=== PATIENT | female | born 1955 | race Caucasian/White ===

== ENCOUNTER 2017-09-01 14:05 | Emergency (ER) | payer BC, SELFPAY ==
[2017-09-01 14:43] VITALS: BP 138/81; PULSE 90; RESP 16; TEMP 36.8; O2SAT 98; BMI 19.1
--- NOTE | 2017-09-01 15:01 | HMH.EDUTC ---
[facility] [place] Disposition Clinical Impression: Skin problem Disposition: Home, Self-Care Condition on Discharge: Good Instructions: DI for Itching Additional Instructions: Take medication as prescribed and follow up with family doctor Return if needed Use skin Moisturizer that does not contain perfume such as Eucerin, Aquafor etc Return if needed Prescriptions: hydrOXYzine pamoate [Vistaril] 12.5 mg PO Q6H PRN #20 cap PRN Reason: Itching Referrals: Vince Harris MD [Primary Care Provider] - Time of Disposition: 15:37 Medical Decision Making - Medical Records Medical records reviewed: Yes: I reviewed the patient's medical records. Vital Signs: 09/01/17 14:43 Temperature 98.2 F Temperature Source Temporal Artery Scan Pulse Rate [Left Brachial] 90 Respiratory Rate 16 Blood Pressure [Left Arm] 138/81 Blood Pressure Mean [Left Arm] 100 Blood Pressure Source [Left Arm] Automatic Cuff Blood Pressure Position [Left Arm] Sitting 02 Sat by Pulse Oximetry 98 Oxygen Delivery Method Room Air - Bairon Inquiry Pt receiving controlled substance: No Bairon was queried for this patient: No - Reevaluation(s) Reevaluation #1: Consulted ER physician Dr Aggarwal for evaluation, he evaluated patient and recommended prescribe Visteril 12.5 and have patient use Moistuizer and follow up with family doctor [facility] [place] HPI - General Stated complaint: itchy rash over body Mode of Arrival: Ambulatory Source of Information: Patient Limitations: No Limitations Description of Symptoms (Recalled from Triage Doc. by RN): c/o itching d/t a rash x2 days HEENT Symptoms (Recalled from RN notes): No Resp Symptoms (Recalled from RN notes): No Skin Symptoms (Recalled from RN notes): Yes (itchy rash) MS Symptoms (Recalled from RN notes): No Functional Status (Recalled from RN notes): n/a - History of Present Illness Provider Complaint: Patient state that she has been having itching all over your body, State that she was recently started on Amoxicillin, Prometh/dm and prednisone States that she went to her family doctor when it started and told them what was going on, and they stopped her Amoxicillin and she has continued to have itching - Related Data Previous Rx's Medication Instructions Recorded hydrOXYzine pamoate [Vistaril] 12.5 mg PO Q6H PRN #20 cap 09/01/17 Allergies Allergy/AdvReac Type Severity Reaction Status Date / Time From ROBAXIN Allergy Unknown Uncoded 07/09/17 14:49 CODEINE AdvReac Unknown NA-NAUSEA Uncoded 07/09/17 14:49 - Worker's Comp Is this a Worker's Comp case?: No [facility] History I have reviewed the patient's past medical history: Yes 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: Denies:: Diabetes Mellitus Type 1, Diabetes Mellitus Type 2 Amputation: No Fractures: No - *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 Smoking Status: Current every day smoker Tobacco Type: cigarettes Alcohol Intake: never - Psychiatric History Expresses thoughts of harming self/others: None Suicide Plan Description: No Plan ROS Obtained: Yes All systems reviewed & no additional complaints Physical Exam - General General appearance: alert, in no apparent distress - ENT ENT exam: Present: normal exam, normal oropharynx, mucous membranes moist, TM's normal bilaterally, normal external ear exam - Respiratory Respiratory exam: Present: normal lung sounds bilaterally. Absent: respiratory distress - Cardiovascular Cardiovascular exam: Present: regular rate, normal rhythm. Absent: JVD - Neurological Exam Neurological exam: Present: alert, oriented X3 - Skin Skin exam: Present: other (Itching all over her body, no rash observed, patient scratching and digging at skin, skin dry )
--- NOTE | 2017-09-01 15:05 | ED_ITS ---
[facility] [place] Clinical Impression: Skin problem Disposition: Home, Self-Care Condition on Discharge: Good Instructions: DI for Itching Additional Instructions: Take medication as prescribed and follow up with family doctor Return if needed Use skin Moisturizer that does not contain perfume such as Eucerin, Aquafor etc Return if needed Prescriptions: hydrOXYzine pamoate [Vistaril] 12.5 mg PO Q6H PRN #20 cap PRN Reason: Itching Referrals: Vince Harris MD [Primary Care Provider] - Time of Disposition: 15:37 Medical Decision Making - Medical Records Medical records reviewed: Yes: I reviewed the patient's medical records. Vital Signs: 09/01/17 14:43 Temperature 98.2 F Temperature Source Temporal Artery Scan Pulse Rate [Left Brachial] 90 Respiratory Rate 16 Blood Pressure [Left Arm] 138/81 Blood Pressure Mean [Left Arm] 100 Blood Pressure Source [Left Arm] Automatic Cuff Blood Pressure Position [Left Arm] Sitting 02 Sat by Pulse Oximetry 98 Oxygen Delivery Method Room Air - Bairon Inquiry Pt receiving controlled substance: No Bairon was queried for this patient: No - Reevaluation(s) Reevaluation #1: Consulted ER physician Dr Aggarwal for evaluation, he evaluated patient and recommended prescribe Visteril 12.5 and have patient use Moistuizer and follow up with family doctor [facility] [place] - General Stated complaint: itchy rash over body Mode of Arrival: Ambulatory Source of Information: Patient Limitations: No Limitations Description of Symptoms (Recalled from Triage Doc. by RN): c/o itching d/t a rash x2 days HEENT Symptoms (Recalled from RN notes): No Resp Symptoms (Recalled from RN notes): No Skin Symptoms (Recalled from RN notes): Yes (itchy rash) MS Symptoms (Recalled from RN notes): No Functional Status (Recalled from RN notes): n/a - History of Present Illness Provider Complaint: Patient state that she has been having itching all over your body, State that she was recently started on Amoxicillin, Prometh/dm and prednisone States that she went to her family doctor when it started and told them what was going on, and they stopped her Amoxicillin and she has continued to have itching - Related Data Previous Rx's Medication Instructions Recorded hydrOXYzine pamoate [Vistaril] 12.5 mg PO Q6H PRN #20 cap 09/01/17 Allergies Allergy/AdvReac Type Severity Reaction Status Date / Time From ROBAXIN Allergy Unknown Uncoded 07/09/17 14:49 CODEINE AdvReac Unknown NA-NAUSEA Uncoded 07/09/17 14:49 - Worker's Comp Is this a Worker's Comp case?: No [facility] History I have reviewed the patient's past medical history: Yes 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: Denies:: Diabetes Mellitus Type 1, Diabetes Mellitus Type 2 Amputation: No Fractures: No - *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 Smoking Status: Current every day smoker Tobacco Type: cigarettes Alcohol Intake: never - Psychiatric History Expresses thoughts of harming self/others: None Suicide Plan Description: No Plan ROS Obtained: Yes All systems reviewed & no additional complaints Physical Exam - General General appearance: alert, in no apparent distress - ENT ENT exam: Present: normal exam, normal oropharynx, mucous membranes moist, TM's normal bilaterally, normal external ear exam - Respiratory Respiratory exam: Present: normal lung sounds bilat
[2017-09-01 15:46] VITALS: BP 138/81; PULSE 90; RESP 16; TEMP 36.8; O2SAT 98
== END 2017-09-01 15:51 | disposition home or self-care (01) ==
PROVIDERS: Emergency Provider Nurse Practitioner; Family Provider Family Medicine; PCP Family Medicine
DX: L98.9 Disorder of the skin and subcutaneous tissue, unspecified (principal); F17.210 Nicotine dependence, cigarettes, uncomplicated
CPT/HCPCS: 99202

== ENCOUNTER → 2018-06-19 08:44 | Outpatient (CLI) | payer BC, SELFPAY ==
--- NOTE | 2018-06-19 08:54 | US_ITS ---
US gallbladder HISTORY: ITS.REASON: RUQ PAIN ORDERING PHYSICIAN: Zeb Miguel MD PATIENT AGE: 62 years Comparison: None FINDINGS: PANCREAS: Unremarkable. No obvious mass or abnormal fluid collection. No ductal dilatation LIVER: No focal liver lesions demonstrated. Homogeneous echogenicity. No intrahepatic biliary ductal dilatation evident RIGHT KIDNEY: Unremarkable. Normal size and echogenicity. No hydronephrosis GALLBLADDER: No gallstones, gallbladder wall thickening, pericholecystic fluid, or biliary dilatation. There is a small amount of plaque present within the abdominal aorta without obvious aneurysm. IMPRESSION: Negative gallbladder/right upper quadrant ultrasound
== END ==
PROVIDERS: PCP Family Medicine; Visit Provider Family Medicine
DX: R10.11 Right upper quadrant pain (principal)
CPT/HCPCS: 76705

== ENCOUNTER 2018-12-08 01:18 | Observation (INO) | payer BC, SELFPAY ==
[2018-12-08] VITALS (8 sets, daily range): BP systolic 83–150; BP diastolic 47–86; PULSE 68–102; RESP 17–22; TEMP 36.8–37.6; O2SAT 94–100; BMI 19.1; BMI 19.2
--- NOTE | 2018-12-08 01:21 | XR_ITS ---
XR chest 2V HISTORY: ITS.REASON: chest pain, smoker ORDERING PHYSICIAN: Mark Guzman MD PATIENT AGE: 62 years COMPARISON: 11/15/2015 FINDINGS: The cardiomediastinal silhouette and pulmonary vascularity are within normal limits. There is evidence of old granulomatous disease. COPD. No lobar consolidation or collapse. IMPRESSION: COPD, no change with no acute finding
[2018-12-08 01:36] LABS: Basophils % 0.2 % (0.1-2.0); Eosinophils # 0.3 K/mm3 (0.0-0.4); Eosinophils % 1.8 % (0.1-12.0); Hematocrit 39.9 % (37.0-47.0); Lymphocytes # 2.5 K/mm3 (0.7-4.5); Lymphocytes % 15.8 % (10-50); Mean Corpuscular HGB Conc 32.5 g/dL (31.8-35.4); Mean Corpuscular Hemoglobin 29.3 pg (27.0-31.2); Mean Corpuscular Volume 90.2 fl (81-99); Mean Platelet Volume 7.2 fl (7.4-10.4); Monocytes # 1.4 K/mm3 (0.1-1.0); Monocytes % 8.5 % (1.7-9.3); Neutrophils # 11.8 K/mm3 (1.8-7.8); Neutrophils % 73.7 % (37.0-80.0); Platelet Count 275 K/mm3 (142-424); Red Blood Count 4.43 M/mm3 (4.20-5.40); Red Cell Distribution Width 13.6 % (11.5-17.5)
[2018-12-08 01:38] LABS: MANUAL DIFFERENTIAL MANUAL DIFFERENTIAL (MANUAL DIFF)
[2018-12-08 01:51] LABS: Alanine Aminotransferase 27 U/L (12-78); Albumin/Globulin Ratio 0.8 (1.1-1.8); Alkaline Phosphatase 68 U/L (46-116); Anion Gap 14.3 mEq/L (5-15); Aspartate Amino Transferase 14 U/L (15-37); Bilirubin,Total 0.5 mg/dL (0.2-1.0); Blood Urea Nitrogen 13 mg/dL (7-18); Calcium 8.4 mg/dL (8.5-10.1); Carbon Dioxide 24 mmol/L (21.0-32.0); Chloride 101 mmol/L (98-107); Creatinine Clearance Estimated 38 mL/min (50-200); Creatinine,Serum 1.08 mg/dL (0.55-1.02); Estimated Glomerular Filt Rate 52 ml/min (>60); GFR (African American) 62 ML/MIN (>60); Globulin 3.9 gm/dl (1.3-3.2); Glucose 159 mg/dL (74-106); Potassium 3.3 mmoL/L (3.5-5.1); Sodium 136 mmol/L (136-145); Total Protein,Serum 6.9 gm/dL (6.4-8.2); Troponin I < 0.02 ng/ml (0.00-0.06)
[2018-12-08 01:52] LABS: Lymphocytes % 11 % (10-50); Monocytes % 4 % (2-9); Neutrophils % 76 % (42-76); Platelet Estimate Normal; RBC Morphology Normal; Total Cells Counted 100
--- NOTE | 2018-12-08 01:52 | HMH.EDCP ---
ED Disposition Clinical Impression: Low body mass index (BMI), Tobacco use Chest pain Qualifiers: Chest pain type: precordial pain Qualified Code(s): R07.2 - Precordial pain COPD (chronic obstructive pulmonary disease) Qualifiers: COPD type: unspecified COPD Qualified Code(s): J44.9 - Chronic obstructive pulmonary disease, unspecified Disposition: Admitted as Observation Condition on Discharge: Good Referrals: Zeb Miguel MD [Primary Care Provider] - - Critical Care Critical Care Time: No Attestation: On 12/08/18, the high probability of a clinically significant, sudden or life threatening deterioration of the following system(s) required my full and direct attention, intervention and personal management. The time I documented below is in addition to time spent performing reported procedures but includes the following listed in this critical care notation. Medical Decision Making - Medical Records Medical records reviewed: Yes: I reviewed the patient's medical records. - Bairon Inquiry Pt receiving controlled substance: No Vital Signs: 12/08/18 01:25 Temperature 99.6 F Temperature Source Oral Pulse Rate [Right] 102 H Respiratory Rate 22 Blood Pressure [Right Arm] 150/86 H Blood Pressure Mean [Right Arm] 107 Blood Pressure Source [Right Arm] Automatic Cuff Blood Pressure Position [Right Arm] Supine 02 Sat by Pulse Oximetry 98 Oxygen Delivery Method Room Air - Lab Data Lab results reviewed: Yes: I reviewed the patient's lab results. Lab Results 12/08/18 01:25: WBC 16.0 H, RBC 4.43, Hgb 13.0, Hct 39.9, MCV 90.2, MCH 29.3, MCHC 32.5, RDW 13.6, Plt Count 275, MPV 7.2 L, Neut % (Auto) 73.7, Lymph % (Auto) 15.8, [place] % (Auto) 8.5, Eos % (Auto) 1.8, Baso % (Auto) 0.2, Neut # (Auto) 11.8 H, Lymph # (Auto) 2.5, [place] # (Auto) 1.4 H, Eos # (Auto) 0.3, Baso # (Auto) 0.0, Total Counted 100, Neutrophils % (Manual) 76, Band Neutrophils % 9.0 H, Lymphocytes % (Manual) 11, Monocytes % (Manual) 4, Platelet Estimate Normal, RBC Morphology Normal 12/08/18 01:25: Sodium 136, Potassium 3.3 L, Chloride 101, Carbon Dioxide 24, Anion Gap 14.3, BUN 13, Creatinine 1.08 H, Estimated Creat Clear 38, Estimated GFR 52 L, Est GFR ( Amer) 62, Glucose 159 H, Calcium 8.4 L, Total Bilirubin 0.5, AST 14 L, ALT 27, Alkaline Phosphatase 68, Troponin I < 0.02, Total Protein 6.9, Albumin 3.0 L, Globulin 3.9 H, Albumin/Globulin Ratio 0.8 L 12/08/18 01:25: Lactate 2.0 Result diagrams: 12/08/18 01:25 12/08/18 01:25 Orders (Tests/Meds): ED MEDICATIONS Generic Name Dose Route Start Last Admin Trade Name Freq PRN Reason Stop Dose Admin Sodium Chloride 1,000 mls @ 999 mls/hr 12/08/18 01:30 12/08/18 01:48 Sod Chlor 0.9% 1000ml Bag IV 12/08/18 02:30 999 mls/hr .Q1H1M MILLA Administration Discontinued Medications Generic Name Dose Route Start Last Admin Trade Name Freq PRN Reason Stop Dose Admin Aspirin 324 mg 12/08/18 01:22 12/08/18 01:47 Aspirin 81mg Chewable Tablet PO 12/08/18 01:23 324 mg ONCE ONE Administration Ketorolac Tromethamine 30 mg 12/08/18 01:22 12/08/18 01:47 Toradol 30mg/Ml Vial IV 12/08/18 01:23 30 mg ONCE ONE Administration Methylprednisolone Sodium Succinate 125 mg 12/08/18 01:23 12/08/18 01:47 Solu-Medrol 125mg/2ml Vial IV 12/08/18 01:24 125 mg ONCE ONE Administration Nitroglycerin 0.4 mg 12/08/18 01:22 12/08/18 01:47 Nitrostat 0.4mg Sl Tablet SL 12/08/18 01:23 0.4 mg ONCE ONE Administration Nitroglycerin 1 gm 12/08/18 01:48 12/08/18 01:49 Nitroglycerin 1 Inch Oint Udp TD 12/08/18 01:49 1 gm ONCE ONE Administration Ondansetron HCl 4 mg 12/08/18 01:22 12/08/18 01:48 Zofran 4mg/2ml Vial IV 12/08/18 01:23 4 mg ONCE ONE Administration ORDERS Category Date Time Status XR chest 2V Stat Exams 12/08/18 01:21 Taken Blood Culture Stat Micro 12/08/18 01:25 Received - Radiology Data #1 Image(s): Chest I
--- NOTE | 2018-12-08 02:35 | PC.NURSE ---
Dr Guzman on phone with Dr Lovell for admission
--- NOTE | 2018-12-08 02:56 | PC.NURSE ---
Pt Hypotensive reported to Dr Guzman no new orders, Dr Guzman wants the Nitro Paste to remain on pt
--- NOTE | 2018-12-08 03:42 | PC.NURSE ---
PT ARRIVED TO FLOOR VIA @ 9100
--- NOTE | 2018-12-08 04:28 | PC.NURSE ---
Pt A&O x3. Resting in bed. Pt denies any chest pain at this time. Lungs are diminished t/o. VSS. Pt is currently NPO at this time for cardiac consult. Call light within reach. No concerns at this time. Will continue to monitor.
[2018-12-08 06:07] LABS: Basophils % 0.1 % (0.1-2.0); Eosinophils # 0.1 K/mm3 (0.0-0.4); Eosinophils % 0.4 % (0.1-12.0); Hematocrit 37.8 % (37.0-47.0); Hemoglobin 12.6 g/dL (12.2-16.2); Lymphocytes # 0.7 K/mm3 (0.7-4.5); Lymphocytes % 4.2 % (10-50); Mean Corpuscular HGB Conc 33.3 g/dL (31.8-35.4); Mean Corpuscular Hemoglobin 29.9 pg (27.0-31.2); Mean Platelet Volume 7.3 fl (7.4-10.4); Monocytes # 0.3 K/mm3 (0.1-1.0); Monocytes % 2.1 % (1.7-9.3); Neutrophils # 14.7 K/mm3 (1.8-7.8); Neutrophils % 93.2 % (37.0-80.0); Platelet Count 260 K/mm3 (142-424); Red Cell Distribution Width 13.5 % (11.5-17.5); White Blood Count 15.8 K/mm3 (4.8-10.8)
[2018-12-08 06:26] LABS: Anion Gap 14.7 mEq/L (5-15); Blood Urea Nitrogen 11 mg/dL (7-18); Calcium 8.1 mg/dL (8.5-10.1); Carbon Dioxide 22 mmol/L (21.0-32.0); Chloride 104 mmol/L (98-107); Chol/HDL Ratio 3.3 (1-3.5); Cholesterol 170 mg/dL (140-200); Creatinine Clearance Estimated 42 mL/min (50-200); Creatinine,Serum 0.88 mg/dL (0.55-1.02); Estimated Glomerular Filt Rate 65 ml/min (>60); GFR (African American) 79 ML/MIN (>60); Glucose 136 mg/dL (74-106); HDL Cholesterol 52 mg/dL (29-89); LDL Cholesterol 105 mg/dL (0-130); Magnesium 2.2 mg/dL (1.4-2.2); Potassium 3.7 mmoL/L (3.5-5.1); Sodium 137 mmol/L (136-145); Triglycerides 67 mg/dL (30-200); Troponin I < 0.02 ng/ml (0.00-0.06); VLDL Cholesterol 13 mg/dL (0-40)
--- NOTE | 2018-12-08 07:15 | HMH.PHAVTE ---
[facility] Pharmacy VTE Monitoring - Patient Demographics Admission date: 12/08/18 Report Date: 12/08/18 Time: 07:15 Allergies/Adverse Reactions: Patient Allergies methocarbamol [From Robaxin] Allergy (Verified 12/08/18 01:43) Penicillins Allergy (Verified 12/08/18 01:43) Height: 1.52 m Weight: 44.594 kg Patient Problems: Current Active Problems (Updated 12/08/18 @ 02:39 by Mark Guzman MD) Chest pain (Acute) COPD (chronic obstructive pulmonary disease) (Acute) Low body mass index (BMI) (Acute) Tobacco use (Acute) - VTE Risk Labs: VTE Related Lab Results Hgb 12.6 g/dL (12.2-16.2) 12/08/18 05:43 Hct 37.8 % (37.0-47.0) 12/08/18 05:43 Plt Count 260 K/mm3 (142-424) 12/08/18 05:43 BUN 11 mg/dL (7-18) 12/08/18 05:43 Creatinine 0.88 mg/dL (0.55-1.02) 12/08/18 05:43 Estimated Creat Clear 42 mL/min (50-200) 12/08/18 05:43 VTE Score: 4 VTE Risk Level: Low Risk - Prophylaxis VTE Prophylaxis Ordered?: Yes Types of VTE Prophylaxis: TEDS Knee High Location of Applied Device: Bilateral Lower Extremeties - VTE Diagnosis Confirmed Treatment or plan recommended: Continue Current Treatment
--- NOTE | 2018-12-08 07:15 | HMH.PHAINT ---
MEDICATION RECONCILIATION COMPLETED ON PATIENT USING EXTERNAL FILL HISTORY FROM PHARMACY. -GRACIELA MCCORMICK, SUDHAD
--- NOTE | 2018-12-08 08:00 | CA_ITS ---
PROCEDURE: 2-D M-mode and color Doppler study INDICATIONS FOR THE TEST: Chest pain+ COPD+ Heart Murmur Tobacco Smoking+ Palpitations Fatigue Syncope Edema Hypertension Diabetes Mellitus Rheumatic Fever SOB HARRIS Obesity Hyperlipidemia Family History HD Additional History PATIENT INFORMATION HEIGHT: 60 WEIGHT:98 GENDER: Female B/P:150/86 2-D/M-MODE INTERPRETATION: 2-D MEASUREMENTS OBSERVED VALUES IN CMS Right Ventricular Dimension (RVDd) 1.9 Interventricular Septum (Thickness)(IVsd) 1.1 Left Ventricular Internal Dimensions(LVIDd) 3.1 Left Ventricular Posterior Wall (Thickness)(LVPWd) 0.6 Aortic Root 3.0 Aortic Cusp Separation 1.8 Left Atrial Dimensions (LAD) 2.7 2D 1. Left atrium is normal size, left ventricle is normal size, there is mild concentric left ventricular hypertrophy, visually estimated ejection fraction 55% with no regional wall motion abnormality. 2. The right atrium and right ventricle are normal size and contractility. 3. The aortic valve is minimally thickened and fibrosed. 4. The mitral and tricuspid valvular grossly normal. 5. The pulmonic valve is poorly visualized. 6. Significant pericardial effusion noted. DOPPLER INTERROGATION: Doppler interrogation of the aortic, mitral and tricuspid valvular presence of mild mitral and tricuspid regurgitation, tricuspid regurgitation jet velocity is inadequate for calculation of the right ventricular systolic pressure, Doppler evidence of impaired relaxation seen. CONCLUSION: 1. Normal left ventricular size, mild concentric left ventricular hypertrophy, visually estimated ejection fraction 55% with no regional wall motion abnormality, diastolic parameters consistent with impaired LV relaxation. 2. Mild mitral and tricuspid regurgitation 3. Thickened pericardial effusion noted.
--- NOTE | 2018-12-08 08:13 | PC.NURSE ---
RN aware of low BP.
[2018-12-08 09:10] LABS: Troponin I < 0.02 ng/ml (0.00-0.06)
--- NOTE | 2018-12-08 09:15 | HMH.CNCARD ---
History of Present Illness Consult date: 12/08/18 Requesting physician: Zeb Miguel Consult reason: chest pain Chief complaint: chest pain Additional 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:: 1. Tobacco use, continued 2. FH of CAD in sister 3. History of C-spine surgery with resultant difficulty swallowing since then History of present illness: 62-year-old white female tobacco user presented to the emergency department for substernal chest pressure type pain with associated significant shortness of breath. Symptoms started at rest after a hard day of working around the house cleaning windows and other chores. She denies any chest pain or SOA with those activities. The chest pain was worse with deep breathing and she felt as if it was related to overworking and possibly pulling a muscle. She did take some ibuprofen prior to calling EMS for transport. In ER she was given toradol and steroids with some improvement in symptoms. She was later given NTG tab without significant improvement but symptoms seem to resolve after being started on the NTG paste. Initial BP elevated in ER but low since admission. EKG is sinus without acute changes. Troponins normal. Preliminary echo shows preserved LVEF without effusion. Pt relates low grade fever of 100.5 degrees on Saturday night without etiology (no cough, cold symptoms). WBC noted to be elevated last night but improving this AM. Pt is adament about going home today and having any further workup as an outpatient. She does smoke but denies any history of HTN or Hyperlipidemia. [facility] History 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: Denies:: Diabetes Mellitus Type 1, Diabetes Mellitus Type 2 *Have you ever received a pneumonia vaccine?: Yes *Have you received a flu vaccine this season?: Yes Other Surgeries: Yes: Tubal Ligation Amputation: No Fractures: No - *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 Educational Level: Attended College Smoking Status: Current every day smoker Tobacco Type: cigarettes # Packs/Day (cigarettes): 1 Alcohol Intake: never *Occupational Status:: employed *Travel in the last 8 weeks: None - Psychiatric History Expresses thoughts of harming self/others: None Suicide Plan Description: No Plan Family Hx:: Cancer, Heart Attack Meds Home Medications Medication Instructions Recorded Confirmed Type Budesonide [Budesonide ER] 9 mg PO DAILY 12/08/18 12/08/18 History Cyclobenzaprine HCl [Flexeril 10mg 10 mg PO HS 12/08/18 12/08/18 History tablet] Allergies Allergy/AdvReac Type Severity Reaction Status Date / Time methocarbamol [From Robaxin] Allergy Verified 12/08/18 01:43 Penicillins Allergy Verified 12/08/18 01:43 Review of Systems - *Cardiovascular Reports chest pain, Reports shortness of breath - *Respiratory Reports shortness of breath, Denies chest congestion, Denies cough - *Gastrointestinal Denies abdominal pain, Denies nausea, Denies vomiting - *Genitourinary Denies blood in urine, Denies urinary incontinence - *Musculoskeletal Denies joint pain, Denies back pain - *Neurologic Denies abnormal speech, Denies seizure-like activity Exam Vital signs and Labs for Last 24 Hours: Temp Pulse Resp BP Pulse Ox 98.6 F 89 18 83/47 L 94 L 12/08/18 08:00 12/08/18 08:00 12/08/18 08:00 12/08/18 08:00 12/08/18 08:00 Laboratory Results - last 24 hr 12/08/18 01:25: WBC 16.0 H, RBC 4.43, Hgb 13.0, Hct 39.9, MCV 90.2, MCH 29.3, MCHC 32.5, RDW 13.6, Plt Count 275, MPV 7.2 L, Neut % (Auto) 73.7, Lymph % (Auto) 15.8, [place] % (Auto) 8.5, Eos % (Auto) 1.8, Baso % (Auto) 0.2, Neut # (Auto) 11.8 H, Lymph # (Auto) 2.5, [place] # (Auto) 1.4 H, Eos # (Auto) 0.3, Baso # (Auto) 0.0, Total Counted 100, Neutrophils % (Manual) 76, Band Neutrophils % 9.0 H, Lymphocytes % (Manual) 11, Monocytes % (Manual) 4, Platelet Estimate Normal, RBC Morphology Normal 12/08/18 01:25: Sodium 136, Potassium 3.3 L, Chloride 101, Carbon Dioxide 24, Anion Gap 14.3, BUN 13, Creatinine 1.08 H, Estimated Creat Clear
--- NOTE | 2018-12-08 09:23 | P.CONS_ITS ---
History of Present Illness Consult date: 12/08/18 Requesting physician: Zeb Miguel Consult reason: chest pain Chief complaint: chest pain Additional 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:: 1. Tobacco use, continued 2. FH of CAD in sister 3. History of C-spine surgery with resultant difficulty swallowing since then History of present illness: 62-year-old white female tobacco user presented to the emergency department for substernal chest pressure type pain with associated significant shortness of breath. Symptoms started at rest after a hard day of working around the house cleaning windows and other chores. She denies any chest pain or SOA with those activities. The chest pain was worse with deep breathing and she felt as if it was related to overworking and possibly pulling a muscle. She did take some ibuprofen prior to calling EMS for transport. In ER she was given toradol and steroids with some improvement in symptoms. She was later given NTG tab without significant improvement but symptoms seem to resolve after being started on the NTG paste. Initial BP elevated in ER but low since admission. EKG is sinus without acute changes. Troponins normal. Preliminary echo shows preserved LVEF without effusion. Pt relates low grade fever of 100.5 degrees on Saturday night without etiology (no cough, cold symptoms). WBC noted to be elevated last night but improving this AM. Pt is adament about going home today and having any further workup as an outpatient. She does smoke but denies any history of HTN or Hyperlipidemia. [facility] History 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: Denies:: Diabetes Mellitus Type 1, Diabetes Mellitus Type 2 *Have you ever received a pneumonia vaccine?: Yes *Have you received a flu vaccine this season?: Yes Other Surgeries: Yes: Tubal Ligation Amputation: No Fractures: No - *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 Educational Level: Attended College Smoking Status: Current every day smoker Tobacco Type: cigarettes # Packs/Day (cigarettes): 1 Alcohol Intake: never *Occupational Status:: employed *Travel in the last 8 weeks: None - Psychiatric History Expresses thoughts of harming self/others: None Suicide Plan Description: No Plan Family Hx:: Cancer, Heart Attack Meds Home Medications Medication Instructions Recorded Confirmed Type Budesonide [Budesonide ER] 9 mg PO DAILY 12/08/18 12/08/18 History Cyclobenzaprine HCl [Flexeril 10mg 10 mg PO HS 12/08/18 12/08/18 History tablet] Allergies Allergy/AdvReac Type Severity Reaction Status Date / Time methocarbamol [From Robaxin] Allergy Verified 12/08/18 01:43 Penicillins Allergy Verified 12/08/18 01:43 Review of Systems - *Cardiovascular Reports chest pain, Reports shortness of breath - *Respiratory Reports shortness of breath, Denies chest congestion, Denies cough - *Gastrointestinal Denies abdominal pain, Denies nausea, Denies vomiting - *Genitourinary Denies blood in urine, Denies urinary incontinence - *Musculoskeletal Denies joint pain, Denies back pain - *Neurologic Denies abnormal speech, Denies seizure-like activity Exam Vital signs and Labs for Last 24 Hours: Temp Pulse Resp BP Pulse Ox 98.6 F 89 18 83/47 L 94 L 12/08/18 08:00 12/08/18 08:00 12/08/18 08:00 12/08/18 08:00 12/08/18 08:00 Laboratory Results - last 24
--- NOTE | 2018-12-08 09:53 | HMH.HPDC ---
<Kasia Matson - Last Filed: 12/08/18 13:27> General - General Admission date:: 12/08/18 Discharge date: 12/08/18 *Admission Date: 12/08/18 *History of present illness: Ms Mclean is a 62-year-old white female with a history tobacco use, migraine headaches, cervical spine stenosis, and irritable bowel syndrome who presented to the emergency department for substernal chest pressure type pain associated with significant shortness of breath. Symptoms started at rest after a hard day of working around the house, cleaning windows and other chores. She denies any chest pain or SOA with those activities. The chest pain was worse with deep breathing and she felt as if it was related to overworking and possibly pulling a muscle. She did take some ibuprofen prior to calling EMS for transport. She denies palpitations, nausea or vomiting. In ER she was given toradol and steroids with some improvement in symptoms. She was later given NTG tab without significant improvement but symptoms seem to resolve after being started on the NTG paste. Initial BP was elevated in ER but became low since admission. Patient has been seen by cardiology who noted EKG with sinus rhythm without acute changes, normal troponins and preliminary echo showing preserved left ventricular ejection fraction without effusion. Pt related a low grade fever of 100.5 degrees on Saturday night without etiology (no cough or cold symptoms). WBC was also noted to be elevated last night but improved this AM. To note also patient was on steroids last week due to a rash which has resolved. This a.m. patient denies chest pain and shortness of breath. She agreed to the cardiology consult. She then wants to go home. To note also patient does smoke and has a history of hypertension and hyperlipidemia [facility] History 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: Reports:: Chronic Obstructive Pulmonary Disease (COPD), Hypertension Denies:: Diabetes Mellitus Type 1, Diabetes Mellitus Type 2 *Have you ever received a pneumonia vaccine?: Yes *Have you received a flu vaccine this season?: Yes Comment:: Cervical spinal stenosis, migraine headaches, irritable bowel syndrome, osteopenia. Other Surgeries: Yes: Tubal Ligation Amputation: No Fractures: No Comment: Disectomy June 2014 - *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 Educational Level: Attended College Smoking Status: Current every day smoker Tobacco Type: cigarettes # Packs/Day (cigarettes): 1 Alcohol Intake: never *Occupational Status:: employed *Travel in the last 8 weeks: None - Psychiatric History Expresses thoughts of harming self/others: None Suicide Plan Description: No Plan Family Hx:: Cancer, Heart Attack Review of Systems - Constitutional Reports fever(s), Reports headache(s) - Eyes Denies change in vision - ENT Denies ear pain, Denies sore throat - *Cardiovascular Reports chest pain, Reports shortness of breath - *Respiratory Reports shortness of breath, Denies chest congestion, Denies cough - *Gastrointestinal Denies abdominal pain, Denies constipation, Denies heartburn, Denies nausea, Denies vomiting - *Genitourinary Denies difficulty urinating - *Musculoskeletal Denies abnormal walking - *Neurologic Reports headache(s), Denies abnormal speech, Denies confusion, Denies seizure-like activity Exam Vital signs and Labs for Last 24 Hours: Temp Pulse Resp BP Pulse Ox 98.6 F 89 18 83/47 L 94 L 12/08/18 08:00 12/08/18 08:00 12/08/18 08:00 12/08/18 08:00 12/08/18 08:00 Laboratory Results - last 24 hr 12/08/18 01:25: WBC 16.0 H, RBC 4.43, Hgb 13.0, Hct 39.9, MCV 90.2, MCH 29.3, MCHC 32.5, RDW 13.6, Plt Count 275, MPV 7.2 L, Neut % (Auto) 73.7, Lymph % (Auto) 15.8, [place] % (Auto) 8.5, Eos % (Auto) 1.8, Baso % (Auto) 0.2, Neut # (Auto) 11.8 H, Lymph # (Auto) 2.5, [place] # (Auto) 1.4 H, Eos # (Auto) 0.3, Baso # (Auto) 0.0, Total Counted 100, Neutrophils % (Manual) 76, Band Neutrophils % 9.0 H, Lymphocytes % (Manual) 11, Monocyte
--- NOTE | 2018-12-08 10:49 | HMH.PHAINT ---
DISCHARGE COUNSELING PROVIDED TO PATIENT FOR ALL MEDICATIONS. DISCUSSED CONTINUING BUDESONIDE AND FLEXERIL. PATIENT DID NOT HAVE ANY QUESTIONS ABOUT THOSE. ALSO DISCUSSED STARTING AN ASPIRIN 81 MG DAILY. PATIENT SAID SHE WOULD TAKE ASPIRIN 325 MG OR 81 MG X 3 IF SHE HAD A HEADACHE. COUNSELED PATIENT THAT SHE SHOULD ONLY BE TAKING 81 MG DAILY AND SHOULD TAKE TYLENOL IF NEEDED FOR THE HEADACHE.
== END 2018-12-08 11:23 | disposition home or self-care (01) ==
LOC: ER 02:11 → 2ND 02:39
PROVIDERS: Admitting Provider Emergency Medicine; Emergency Provider Emergency Medicine; PCP Family Medicine; Visit Provider Family Medicine
DX: R07.2 Precordial pain (principal); R06.02 Shortness of breath; J44.9 Chronic obstructive pulmonary disease, unspecified; I10 Essential (primary) hypertension; F17.210 Nicotine dependence, cigarettes, uncomplicated; Z98.51 Tubal ligation status; Z82.49 Family history of ischemic heart disease and other diseases of the circulatory system; Z79.899 Other long term (current) drug therapy; Z88.0 Allergy status to penicillin; Z88.8 Allergy status to other drugs, medicaments and biological substances
CPT/HCPCS: 36415; 71046; 80048; 80053; 80061; 83605; 83735; 84484; 85007; 85025; 87040; 93005; 93306; 96365; 96375; 99284; G0378; J2405

== ENCOUNTER → 2018-12-11 07:02 | Outpatient (CLI) | payer BC, SELFPAY ==
--- NOTE | 2018-12-11 07:04 | NM_ITS ---
CARDIOLITE SPECT MYOCARDIAL PERFUSION LEXISCAN, REST AND STRESS: History: Chest pain, shortness of breath, tobacco use, family history. Procedure: Patient exercised on Nas protocol 8 minutes and 15 seconds, resting heart rate was 72 bpm resting blood pressure 141/87, with exercise maximum heart rate achieved was 152 beats per minute which is greater than 85% of the maximum predicted heart rate and a blood pressure was 180/90. Test was stopped due to shortness of breath. Patient has adequate exercise capacity achieved 7mets of workload on treadmill, the blood pressure response to exercise was adequate. Electrocardiogram: Resting electrocardiogram showed sinus rhythm atrial abnormality, with exercise there is less than 1.[address] segment depression noted from the baseline EKG. The EKG portion of the exercise Myoview is negative for ischemia. Cardiac stress and resting SPECT images: Cardiac stress and resting SPECT images were obtained using technetium 99 Myoview 31.8 mCi at stress and 10.8 mCi at rest. Gated SPECT further analysis of segmental wall motion and calculation of ejection fraction also done. Cardiac stress and the suspect images show uniform myocardial activity without segmental perfusion abnormality, computer derived ejection fraction is 27%, appears to be falsely low, and echocardiogram will be better modality to evaluate left ventricular systolic function is patient. Conclusion: 1. The EKG portion of the exercise Myoview is negative for ischemia, patient has adequate exercise capacity achieved 7mets of workload on treadmill, the blood pressure response to exercise was adequate, there was no exercise-induced chest discomfort. Test was stopped due to shortness of breath. 2. No scintigraphic evidence of reversible ischemia seen. An echocardiogram will be better modality to evaluate left ventricular systolic function is patient as described above.
--- NOTE | 2018-12-11 09:51 | HMH.ITSHM ---
Current Home Medications as stated by this patient Brisa Mclean or guest relations representative. []FLEXERIL BUDESONIDE
== END ==
PROVIDERS: PCP Family Medicine; Visit Provider Physician Assistant
DX: R07.9 Chest pain, unspecified (principal)
CPT/HCPCS: 78452; 93017; A9502

== ENCOUNTER → 2020-04-15 15:02 | Outpatient (CLI) | payer BC, SELFPAY ==
[2020-04-15 15:57] LABS: Basophils # 0.1 K/mm3 (0-0.2); Basophils % 0.4 % (0.1-2.0); Eosinophils # 0.2 K/mm3 (0.0-0.4); Eosinophils % 1.1 % (0.1-12.0); Hematocrit 42.2 % (37.0-47.0); Hemoglobin 14.5 g/dL (12.2-16.2); Lymphocytes # 2.9 K/mm3 (0.7-4.5); Lymphocytes % 15.7 % (10-50); Mean Corpuscular HGB Conc 34.5 g/dL (31.8-35.4); Mean Corpuscular Hemoglobin 30.6 pg (27.0-31.2); Mean Corpuscular Volume 88.8 fl (81-99); Mean Platelet Volume 7.5 fl (7.4-10.4); Monocytes # 2.4 K/mm3 (0.1-1.0); Monocytes % 12.9 % (1.7-9.3); Neutrophils % 69.8 % (37.0-80.0); Platelet Count 298 K/mm3 (142-424); Red Blood Count 4.75 M/mm3 (4.20-5.40); Red Cell Distribution Width 13.9 % (11.5-17.5); White Blood Count 18.7 K/mm3 (4.8-10.8)
[2020-04-15 16:10] LABS: MANUAL DIFFERENTIAL MANUAL DIFFERENTIAL (MANUAL DIFF)
[2020-04-15 17:27] LABS: Lymphocytes % 7 % (10-50); Monocytes % 3 % (2-9); Neutrophils % 87 % (42-76); Platelet Estimate Normal; RBC Morphology Normal; Total Cells Counted 100
[2020-04-18 10:37] LABS: Covid-19 Nasal PCR Sendout UK Not Detected
== END ==
PROVIDERS: PCP Family Medicine; Visit Provider Family Medicine
DX: Z03.818 Encounter for observation for suspected exposure to other biological agents ruled out (principal)
CPT/HCPCS: 36415; 85007; 85025; U0003

== ENCOUNTER 2020-04-17 10:20 | Emergency (ER) | payer BC, SELFPAY ==
[2020-04-17 10:28] VITALS: BP 123/70; PULSE 100; RESP 20; TEMP 36.8; O2SAT 99; BMI 18.9
--- NOTE | 2020-04-17 10:42 | PC.NURSE ---
contacted lab to see if pt covid swab was resulted yet, staff states results not back yet.
--- NOTE | 2020-04-17 10:47 | XR_ITS ---
PROCEDURE: XR CHEST 2V CLINICAL HISTORY: SOA COMPARISON: CR CXR CHEST(2 VIEWS-NOT PORTABLE) from 11/15/2015 CT LDCTLCAS LDCT FOR LUNG CA SCREEN from 01/13/2016 CR CXR2V XR chest 2V from 12/08/2018 CR XR CHEST PORTABLE from 10/12/2019 FINDINGS: The cardiomediastinal silhouette and pulmonary vascularity are within normal limits. Calcified granuloma is present in the right lower lobe. There are chronic changes with COPD. There is mild biapical pleural thickening Bone plate is present along the lower cervical spine. IMPRESSION: COPD with chronic changes, no acute finding Dictated by: Evan Wong MD 04/17/2020 11:58 Evan Wong MD in [facility] 04/17/2020 11:58
--- NOTE | 2020-04-17 11:33 | PC.NURSE ---
pt return from xray
[2020-04-17 11:34] LABS: Basophils # 0.1 K/mm3 (0-0.2); Basophils % 0.4 % (0.1-2.0); Eosinophils # 0.2 K/mm3 (0.0-0.4); Eosinophils % 1.1 % (0.1-12.0); Hematocrit 44.6 % (37.0-47.0); Hemoglobin 15.2 g/dL (12.2-16.2); Lymphocytes # 2.4 K/mm3 (0.7-4.5); Lymphocytes % 13.7 % (10-50); Mean Corpuscular Hemoglobin 30.7 pg (27.0-31.2); Mean Corpuscular Volume 90.3 fl (81-99); Mean Platelet Volume 7.6 fl (7.4-10.4); Monocytes # 1.9 K/mm3 (0.1-1.0); Monocytes % 10.9 % (1.7-9.3); Platelet Count 294 K/mm3 (142-424); Red Blood Count 4.94 M/mm3 (4.20-5.40); Red Cell Distribution Width 13.7 % (11.5-17.5); White Blood Count 17.5 K/mm3 (4.8-10.8)
[2020-04-17 11:35] VITALS: BP 104/67; PULSE 90; RESP 18; O2SAT 98
--- NOTE | 2020-04-17 11:38 | PC.NURSE ---
contacted lab to check on status of lab results, spoke with Usama. usama had just recently been in ER drawing blood on this pt, states she shell a type and screen on pt. type and screen is not ordered for this pt. there is a type and screen ordered on another current ER pt. Usama states she will not run type and screen on this pt.
[2020-04-17 11:44] LABS: Chloride 99 mmol/L (98-107)
[2020-04-17 11:45] LABS: MANUAL DIFFERENTIAL MANUAL DIFFERENTIAL (MANUAL DIFF); Sodium 134 mmol/L (136-145)
[2020-04-17 11:47] LABS: Alanine Aminotransferase 52 U/L (12-78); Alkaline Phosphatase 109 U/L (38-126); Aspartate Amino Transferase 54 U/L (14-36); Bilirubin,Total 1.1 mg/dl (0.2-1.3); Blood Urea Nitrogen 10 mg/dl (7-17); Carbon Dioxide 24 mmol/L (22.0-30.0); Creatinine Clearance Estimated 40 mL/min (50-200); Estimated Glomerular Filt Rate 56 ml/min (>60); GFR (African American) 68 ML/MIN (>60); Lactic Acid 1.4 mmol/L (0.7-2.1)
[2020-04-17 11:48] LABS: Calcium 9.7 mg/dl (8.4-10.2); Globulin 3.9 g/dL (1.3-3.2); Glucose 116 mg/dl (74-100); Total Protein,Serum 7.9 g/dl (6.3-8.2)
--- NOTE | 2020-04-17 11:54 | HMH.EDGENADL ---
ED Disposition Clinical Impression: Syncope and collapse Fatigue Qualifiers: Fatigue type: unspecified Qualified Code(s): R53.83 - Other fatigue Abdominal pain Qualifiers: Abdominal location: unspecified location Qualified Code(s): R10.9 - Unspecified abdominal pain Leukocytosis Qualifiers: Leukocytosis type: unspecified Qualified Code(s): D72.829 - Elevated white blood cell count, unspecified Disposition: Home, Self-Care Condition on Discharge: Good Instructions: DI for Syncope in Adults (Fainting), DI for Abdominal Pain-Adult Additional Instructions: Continue current medications. Drink plenty of fluids. Call your primary care provider tomorrow for follow-up. Additional instructions for ABDOMINAL PAIN: See your physician as soon as possible for further evaluation. Return immediately if worsening abdominal pain, vomiting, shortness of breath, fever, vomiting of blood or abdominal distention. Referrals: Zeb Miguel MD [Primary Care Provider] - - Critical Care Critical Care Time: No Attestation: On 04/17/20, the high probability of a clinically significant, sudden or life threatening deterioration of the following system(s) required my full and direct attention, intervention and personal management. The time I documented below is in addition to time spent performing reported procedures but includes the following listed in this critical care notation. Medical Decision Making - Medical Records Medical records reviewed: Yes: I reviewed the patient's medical records. - Bairon Inquiry Pt receiving controlled substance: No Vital Signs: 04/17/20 10:28 04/17/20 11:35 04/17/20 12:51 Temperature 98.2 F Temperature Source Oral Pulse Rate Pulse Rate [Orthostatic Lying Radial] 87 Pulse Rate [Orthostatic Standing Radial] 104 H Pulse Rate [Right Radial] 100 H 90 Respiratory Rate 20 18 Blood Pressure Blood Pressure [Orthostatic Lying Right Arm] 101/67 L Blood Pressure [Orthostatic Standing Right Arm] 88/61 L Blood Pressure [Right Arm] 123/70 104/67 L Blood Pressure Mean [Right Arm] 87 79 Blood Pressure Source [Right Arm] Automatic Cuff Automatic Cuff Blood Pressure Position [Right Arm] Sitting Sitting 02 Sat by Pulse Oximetry 99 98 Oxygen Delivery Method Room Air Room Air 04/17/20 13:00 04/17/20 14:41 04/17/20 15:11 Temperature 98.2 F Temperature Source Oral Pulse Rate 78 Pulse Rate [Orthostatic Lying Radial] Pulse Rate [Orthostatic Standing Radial] Pulse Rate [Right Radial] 76 78 Respiratory Rate 20 18 15 Blood Pressure 122/83 Blood Pressure [Orthostatic Lying Right Arm] Blood Pressure [Orthostatic Standing Right Arm] Blood Pressure [Right Arm] 107/77 L 122/83 Blood Pressure Mean [Right Arm] 87 96 Blood Pressure Source [Right Arm] Automatic Cuff Automatic Cuff Blood Pressure Position [Right Arm] Sitting Supine 02 Sat by Pulse Oximetry 98 98 Oxygen Delivery Method Room Air Room Air - Lab Data Lab results reviewed: Yes: I reviewed the patient's lab results. Lab Results 04/17/20 10:30: Urine Color Yellow, Urine Appearance Clear, Urine pH 5.5, Ur Specific [place] 1.025, Urine Protein Trace, Urine Glucose (UA) Negative, Urine Ketones Negative, Urine Blood 1+, Urine Nitrate Negative, Urine Bilirubin Negative, Urine Urobilinogen 0.2, Ur Leukocyte Esterase Trace, Urine RBC 3-5, Urine WBC Occasional, Ur Squamous Epith Cells Occasional, Amorphous Sediment Trace, Urine Bacteria Trace 04/17/20 10:55: WBC 17.5 H, RBC 4.94, Hgb 15.2, Hct 44.6, MCV 90.3, MCH 30.7, MCHC 34.0, RDW 13.7, Plt Count 294, MPV 7.6, Neut % (Auto) 74.0, Lymph % (Auto) 13.7, [place] % (Auto) 10.9 H, Eos % (Auto) 1.1, Baso % (Auto) 0.4, Neut # (Auto) 13.0 H, Lymph # (Auto) 2.4, [place] # (Auto) 1.9 H, Eos # (Auto) 0.2, Baso # (Auto) 0.1, Total Counted 100, Neutrophils % (Manual) 73, Lymphocytes % (Manual) 14, Monocytes % (Manual) 12 H, Eosinophils % (Manual) 1, Platelet Estimate N
[2020-04-17 11:55] LABS: Eosinophils % 1 % (0-3); Lymphocytes % 14 % (10-50); Monocytes % 12 % (2-9); Neutrophils % 73 % (42-76); Platelet Estimate Normal; RBC Morphology Normal; Total Cells Counted 100
[2020-04-17 12:04] LABS: Coronavirus 19 IgG Antibody Negative (Negative); Coronavirus 19 IgM Antibody Negative (Negative)
--- NOTE | 2020-04-17 12:41 | CT_ITS ---
PROCEDURE: CT ABDOMEN PELVIS W CON CLINICAL INDICATION: abdo pain Lower abdominal pain with vomiting COMPARISON: No exams were available for comparison TECHNIQUE: IV Contrast: 75ML OPTIRAY 350 Oral Contrast None Axial images obtained with sagittal and coronal reformats. All CT scans at the facility use one or more dose reduction, viz: automated exposure control, ma/kV adjustment per patient size (including targeted exams where dose is matched to indication, i.e. head), or iterative reconstruction technique. FINDINGS: LOWER THORAX: Centrilobular emphysema with COPD and prominence of the interstitium in the lung bases. Mild nonspecific thickening of the distal esophagus. ABDOMEN & PELVIS: The the liver, spleen, adrenal glands, pancreas, and kidneys have an unremarkable appearance. No intestinal obstruction or free air. There is a circum aortic left renal vein. There is mild fusiform dilatation of the abdominal aorta in the infrarenal region with calcific plaque and minimal mural thrombus. This measures up to 2.5 cm. No evidence of acute retroperitoneal hemorrhage. No pelvic mass or abnormal fluid collection. No intestinal obstruction or free air. No evidence of appendicitis or diverticulitis. IMPRESSION: 1. No acute abdominal or pelvic findings. 2. 2.5 cm infrarenal abdominal aortic aneurysm. 3. Other nonacute findings as described above Dictated by: Evan Wong MD 04/18/2020 06:48 Evan Wong MD in [facility] 04/18/2020 06:48
[2020-04-17 12:51] VITALS: BP 101/67; BP 88/61; PULSE 104; PULSE 87
[2020-04-17 12:59] LABS: Microscopic, Urine URINE MICROSCOPIC (MICROSCOPIC)
[2020-04-17 13:00] VITALS: BP 107/77; PULSE 76; RESP 20; O2SAT 98
--- NOTE | 2020-04-17 13:03 | ECG_ITS ---
APPROVED REPORT Exam: Resting ECG HR:73 bpm ECG Measurements Heart Rate 73 AXES MS 122 P 62 QRSd 60 QRS 56 QT 410 T 60 QTc 451 <Conclusion> Normal sinus rhythm Low voltage QRS Borderline ECG Electronically signed by : Michael Padgett, 04/18/2020 15:39:09
--- NOTE | 2020-04-17 13:07 | PC.NURSE ---
rad notified of ct order
[2020-04-17 13:09] LABS: Appearance,Urine CLEAR (Clear); Bilirubin,Urine Negative (Negative); Blood, Urine 1+ (Negative); Color,Urine YELLOW (Yellow); Glucose,Urine (UA) Negative (Negative); Ketones,Urine Negative (Negative); Leukocyte Esterase,Urine TRACE (Negative); Nitrate,Urine Negative (Negative); PH,Urine 5.5 (5.0-8.5); Protein,Urine TRACE (Negative); Specific Gravity, Urine 1.025 (1.005-1.030); Urobilinogen,Urine 0.2 EU/dl (0.2)
[2020-04-17 13:29] LABS: Troponin I < 0.01 ng/ml (0.00-0.034)
[2020-04-17 13:38] LABS: Amorphous Sediment,Urine Trace /lpf; Bacteria,Urine Trace /lpf; Squamous Epithelial Cell,Urine Occasional #/hpf (0-5); WBC,Urine Occasional #/hpf (0-3)
[2020-04-17 14:41] VITALS: BP 122/83; PULSE 78; RESP 18; O2SAT 98
[2020-04-17 15:11] VITALS: BP 122/83; PULSE 78; RESP 15; TEMP 36.8; O2SAT 98
== END 2020-04-17 15:25 | disposition home or self-care (01) ==
PROVIDERS: Emergency Provider Emergency Medicine; PCP Family Medicine
DX: R55 Syncope and collapse (principal); R53.83 Other fatigue; D72.829 Elevated white blood cell count, unspecified; Z20.828 Contact with and (suspected) exposure to other viral communicable diseases; I10 Essential (primary) hypertension; J44.9 Chronic obstructive pulmonary disease, unspecified; Z88.0 Allergy status to penicillin; F17.210 Nicotine dependence, cigarettes, uncomplicated; Z79.899 Other long term (current) drug therapy
CPT/HCPCS: 71046; 74177; 80053; 81001; 83605; 84484; 85007; 85025; 86328; 87040; 93005; 96365; 99284; Q9967

== ENCOUNTER → 2021-01-12 10:19 | Outpatient (CLI) | payer BC, SELFPAY ==
--- NOTE | 2021-01-12 10:31 | XR_ITS ---
PROCEDURE: XR FOOT RT MIN 3V CLINICAL INDICATION: PUNCTURE WOUND OF RT FOOT COMPARISON: No exams were available for comparison FINDINGS: No fracture or dislocation. No lytic or blastic change. There is normal mineralization. The joint spaces are well-preserved. No significant degenerative/arthritic changes. No erosive changes evident. Other findings:No radiopaque foreign body apparent. IMPRESSION: No acute findings. Dictated by: Evan Wong MD 01/12/2021 15:01 Evan Wong MD in [facility] 01/12/2021 15:01
== END ==
PROVIDERS: PCP Family Medicine; Visit Provider Physician Assistant
DX: S91.331A Puncture wound without foreign body, right foot, initial encounter (principal)
CPT/HCPCS: 73630

== ENCOUNTER → 2021-06-21 15:04 | Outpatient (CLI) | payer BC, SELFPAY ==
--- NOTE | 2021-06-21 15:08 | US_ITS ---
PROCEDURE: US TRANSVAGINAL CLINICAL INDICATION: DYSURIA COMPARISON: No exams were available for comparison FINDINGS: UTERUS: 5cm x 4cmx 2cm with a combined endometrial thickness of 3.7mm. There is a small amount fluid within the endometrium. The combined endometrial thickness without the fluid is approximately 2 mm. Small amount fluid is present in the endocervical canal. LEFT OVARY: [id number] with a volume of 0.4ml. RIGHT OVARY: [id number] with a volume of 0.7ml. No adnexal mass or cul-de-sac fluid. IMPRESSION: Small amount fluid within the endometrial canal and endocervical canal otherwise negative Dictated by: Evan Wong MD 06/21/2021 18:04 Evan Wong MD in [facility] 06/21/2021 18:04
== END ==
PROVIDERS: PCP Family Medicine; Visit Provider Family Medicine
DX: R30.0 Dysuria (principal)
CPT/HCPCS: 76830

== ENCOUNTER 2021-11-13 16:54 | Emergency (ER) | payer BC, SELFPAY ==
[2021-11-13 18:25] VITALS: BP 123/82; PULSE 91; RESP 21; TEMP 36.6; O2SAT 97; BMI 16.9
--- NOTE | 2021-11-13 18:42 | HMH.EDUTC ---
[facility] Clinical Impression: Viral syndrome, Exposure to COVID-19 virus Disposition: Home, Self-Care Condition on Discharge: Good Instructions: DI for COVID-19 (Suspected or Confirmed ), DI for Nausea -- Adult Additional Instructions: *Monitor Temp, Over the counter Motrin or Tylenol as directed/as needed Tylenol every 4 hours and Motrin every 6 hours (as long as your family doctor has told you that you can take it) for fever or pain. and straight to ER if unable to lower temp less than 101.0 after medication given *Warm salt water gargles may help to soothe the throat *Throat Lozenges *Warm fluids like tea with honey may help to soothe the throat *Sleep elevated *Humidifier/Vaporizer *Flonase 2 sprays in each nostril daily but be aware that it may take 2-3 days before you notice improvement Continue taking zofran as prescribed for nausea Follow up IMMEDIATELY for new or worsening symptoms or no Noticeable improvement over the next 48-72 hours. 911 for difficulty breathing or swallowing You may check your Results of your Upper Respiratory Panel on the [facility] my Health Portal make sure to wear a well fitted mask Prescriptions: Fluticasone Propionate [Flonase 50mcg nasal spray 16gm] 1 spr NS DAILY #1 each Transmission Status: Pending to [facility] Referrals: Zeb Miguel MD [Primary Care Provider] - As needed Time of Disposition: 18:51 Medical Decision Making - Bairon Inquiry Pt receiving controlled substance: No Bairon was queried for this patient: No Vital Signs: 11/13/21 18:25 Temperature 97.8 F Temperature Source Oral Pulse Rate [Left Radial] 91 H Respiratory Rate 21 Blood Pressure [Left Arm] 123/82 Blood Pressure Mean [Left Arm] 95 Blood Pressure Source [Left Arm] Automatic Cuff Blood Pressure Position [Left Arm] Sitting 02 Sat by Pulse Oximetry 97 Oxygen Delivery Method Room Air Orders (Tests/Meds): ORDERS Category Date Time Status Covid-19 Nasal PCR ([facility]) Routine Lab 11/13/21 18:[address] [facility] - General Stated complaint: COVID TEST,[place] Time Seen by Provider: 11/13/21 18:42 Mode of Arrival: Ambulatory Source of Information: Patient Limitations: No Limitations Description of Symptoms (Recalled from Triage Doc. by RN): Pt requesting COVID test d/t nausea x3 days after being exposed to Grandson who tested positive HEENT Symptoms (Recalled from RN notes): No Resp Symptoms (Recalled from RN notes): No Skin Symptoms (Recalled from RN notes): No MS Symptoms (Recalled from RN notes): No Functional Status (Recalled from RN notes): n/a - History of Present Illness Provider Complaint: Patient states that she has been around her grandson that tested positive for COVID earlier today States that for the last few days she has been having pressure in her ears, nausea and feeling achy States that she was worried after finding out that he tested positive so she came in to get checked - Related Data Home Medications Medication Instructions Recorded Confirmed Budesonide [Budesonide ER] 9 mg PO DAILY 12/08/18 10/12/19 Cyclobenzaprine HCl [Flexeril 10mg 10 mg PO HS 12/08/18 04/17/20 tablet] levoFLOXacin [Levaquin 500mg 500 mg PO DAILY 04/17/20 04/17/20 tab] Previous Rx's Medication Instructions Recorded Fluticasone Propionate [Flonase 1 spr NS DAILY #1 each 11/13/21 50mcg nasal spray 16gm] Allergies Allergy/AdvReac Type Severity Reaction Status Date / Time methocarbamol [From Robaxin] Allergy Verified 10/12/19 18:24 Penicillins Allergy Verified 10/12/19 18:24 - Worker's Comp Is this a Worker's Comp case?: No [facility] History - Hepatitis A Screen Drug use history?: No High risk sexual behaviors?: No History of sexually transmitted infection?: No Currently employed?: No Childcare worker?: No Do you have indoor plumbing?: Yes Do you have electricity?: Yes Attestation statement:: This patient has been s
[2021-11-13 19:09] VITALS: BP 122/89; PULSE 89; RESP 19; TEMP 37; O2SAT 99
== END 2021-11-13 19:09 | disposition home or self-care (01) ==
PROVIDERS: Emergency Provider Nurse Practitioner; PCP Family Medicine
DX: B34.9 Viral infection, unspecified (principal); Z20.822 Contact with and (suspected) exposure to COVID-19; I10 Essential (primary) hypertension; J44.9 Chronic obstructive pulmonary disease, unspecified; F17.210 Nicotine dependence, cigarettes, uncomplicated
CPT/HCPCS: 99212; C9803; G0463; U0003; U0005

== ENCOUNTER → 2021-11-16 11:06 | Outpatient (CLI) | payer BC, SELFPAY | PROVIDERS: PCP Family Medicine; Visit Provider Physician Assistant | DX: U07.1 COVID-19 (principal) | CPT/HCPCS: C9803; U0003; U0005 ==

== ENCOUNTER → 2022-01-12 09:09 | Outpatient (CLI) | payer MEDICARE, SELFPAY ==
--- NOTE | 2022-01-12 09:10 | US_ITS ---
FINAL REPORT CLINICAL HISTORY: Follow up on [facility] COMPARISON: June 19, 2018 FINDINGS: Limited sonographic images were obtained of the abdomen to evaluate the abdominal aorta and iliac arteries. The abdominal aorta measures up to 2.1 cm in greatest dimension and is within normal limits. There is moderate plaque in the abdominal aorta which is similar to prior. The iliac arteries are within normal limits. IMPRESSION: No evidence of abdominal aortic aneurysm. Stable moderate plaque in the abdominal aorta. Reviewed, Interpreted and Dictated by Braydon Watters III, MD Transcribed by Arlen Dawson Authenticated and [facility]
== END ==
PROVIDERS: PCP Family Medicine; Visit Provider Family Medicine
DX: I71.4 Abdominal aortic aneurysm, without rupture (principal)
CPT/HCPCS: 76705

== ENCOUNTER 2022-05-30 15:09 | Emergency (ER) | payer MEDICARE, SELFPAY ==
--- NOTE | 2022-05-30 16:27 | EXP.UTC ---
Discharge Plan Disposition Patient Disposition: Home, Self-Care Condition: Good Prescriptions Prescriptions: No Action budesonide 3 mg capsule,delayed,extend.release 3 mg PO DAILY loperamide 2 mg capsule 2 mg PO Q6H PRN ibuprofen 400 mg tablet 400 mg PO Q8H PRN ondansetron HCl 4 mg tablet 4 mg PO Q8H PRN loratadine 10 mg tablet 10 mg PO DAILY Qty: 30 0RF albuterol sulfate 90 mcg/actuation HFA aerosol inhaler 2 puff inhalation Label Comments: INHALE 2 PUFFS BY MOUTH EVERY 6 HOURS NEEDED cyclobenzaprine 10 MG tablet 10 mg PO HS budesonide 9 MG tablet,delayed and ext.release 9 mg PO DAILY fluticasone propionate 120 SPR/BOT bottle 1 spr NS DAILY Qty: 1 0RF Rx Instructions: one spray in each nostril daily Referrals Follow up/Referrals: Loy Cruz MD [Primary Care Provider] - See instructions Activity Restrictions/Add. Instructions Additional Instructions/Restrictions: Drink plenty of fluids. Take tylenol or ibuprofen for pain or fever. Take the medications as directed. Follow up with your regular doctor. GO TO THE ER FOR ANY WORSENING SYMPTOMS Clinical Impressions Clinical Impression: COPD exacerbation, Viral syndrome Instructions Patient Instructions: DI for Chronic Obstructive Pulmonary Disease Discharge ED Provider: Deangelo Bhatia [facility] General Stated complaint: headache, sore throat, ear pain Time Seen by Provider: 05/30/22 16:27 History of Present Illness Provider Complaint: She states that for the past 1 week she has had worsening chest congestion, cough, and sinus congestion. She has a history of copd. Related Data Home Medications Medication Instructions Recorded Confirmed budesonide 9 mg tablet,delayed and 9 mg PO DAILY ABDOMINAL PAIN 12/08/18 05/31/22 extended release cyclobenzaprine 10 mg tablet 10 mg PO HS muscle spasm 12/08/18 05/31/22 budesonide 3 mg 3 mg PO DAILY 12/26/21 05/31/22 capsule,delayed,extended release ibuprofen 400 mg tablet 400 mg PO Q8H PRN 12/26/21 05/31/22 loperamide 2 mg capsule 2 mg PO Q6H PRN 12/26/21 05/31/22 ondansetron HCl 4 mg tablet 4 mg PO Q8H PRN 12/26/21 05/31/22 albuterol sulfate 90 mcg/actuation 2 puff inhalation 05/03/22 05/31/22 aerosol inhaler Previous Rx's Medication Instructions Recorded fluticasone propionate 50 1 spr intranasal DAILY #1 ea 11/13/21 mcg/actuation nasal spray,suspension loratadine 10 mg tablet 10 mg PO DAILY #30 tabs 05/31/22 Allergies Allergy/AdvReac Type Severity Reaction Status Date / Time methocarbamol [From Robaxin] Allergy Verified 05/31/22 13:33 Penicillins Allergy Verified 05/31/22 13:33 methylprednisolone AdvReac Verified 05/31/22 13:33 medrol dos jenae AdvReac Uncoded 05/31/22 13:33 PFSH [facility] 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 Smoking Status: Current every day smoker tobacco type: cigarettes packs per day: 1 alcohol intake: never current occupational status: other Travel in the last 8 weeks: None caffeine: Yes ROS Obtained: Yes All systems reviewed & no additional complaints except as documented Constitutional Constitutional: Denies chills and Denies fever(s) Eyes Eyes: Denies eye discharge ENT Ears, Nose, Mouth, and Throat: Denies dizziness, Denies otalgia and Denies sore throat Cardiovascular Cardiovascular: Denies chest pain Respiratory Respiratory: Denies shortness of breath, Reports chest congestion, Denies cough, Denies stridor and Reports wheezing Gastrointestinal Gastrointestingal: Denies nausea or vomiting Musculoskeletal Musculoskeletal: Reports system reviewed and no additional complaints, except as documented and Denies arthralgias Integumentary/Breasts Skin/Breast: Denies rash Neurologic Neurologic: Denies dizziness and Denies paresthesias Allergic/Immunologic Allergic/Immunologic: Reports wheezing Physical Exam General General appeara
[2022-05-30 16:45] VITALS: BP 111/83; PULSE 91; RESP 17; TEMP 37.1; O2SAT 100; BMI 18.1
[2022-05-30 17:02] VITALS: BP 111/83; PULSE 91; RESP 17; TEMP 37.1
[2022-05-30 17:03] LABS: UTC Strep Screen (Rapid) Negative (Negative)
[2022-05-30 17:04] LABS: UTC Influenza A Antigen Negative (Negative); UTC Influenza B Antigen Negative (Negative)
[2022-05-30 17:23] LABS: Adenovirus,PCR Not Detected (NotDetected); Bordetella Pertussis Not Detected (NotDetected); Chlamydophila Pneumoniae, PCR Not Detected (NotDetected); Coronavirus 19, PCR Not Detected (NotDetected); Coronavirus 229E Not Detected (NotDetected); Coronavirus NL63 Not Detected (NotDetected); Coronavirus OC43 Not Detected (NotDetected); Coronovirus HKU1,PCR Not Detected (NotDetected); Human Metapneumovirus Not Detected (NotDetected); Influenza A, PCR Not Detected (NotDetected); Influenza AH1, 2009 Not Detected (NotDetected); Influenza AH1, PCR Not Detected (NotDetected); Influenza AH3,PCR Not Detected (NotDetected); Influenza B, PCR Not Detected (NotDetected); Mycoplasma Pneumoniae, PCR Not Detected (NotDetected); Parainfluenza 1, PCR Not Detected (NotDetected); Parainfluenza 2, PCR Not Detected (NotDetected); Parainfluenza 3, PCR Not Detected (NotDetected); Parainfluenza 4, PCR Not Detected (NotDetected); Respiratory Syncytial Virus Not Detected (NotDetected); Rhinovirus/Enterovirus Not Detected (NotDetected)
== END 2022-05-30 17:10 | disposition home or self-care (01) ==
PROVIDERS: Emergency Provider Nurse Practitioner Family; PCP Family Medicine
DX: J44.1 Chronic obstructive pulmonary disease with (acute) exacerbation (principal); B34.9 Viral infection, unspecified
CPT/HCPCS: 87581; 87632; 87798; 87804; 87880; 99212; C9803; G0463; U0003; U0005

== ENCOUNTER → 2022-06-04 11:40 | Outpatient (CLI) | payer MEDICARE, SELFPAY ==
--- NOTE | 2022-06-04 12:02 | XR_ITS ---
FINAL REPORT CLINICAL HISTORY: BRONCHITIS COMPARISON: 04/17/2020 FINDINGS: 2 views of the chest were obtained . The heart is normal in size. The mediastinum is within normal limits. There is a calcified granuloma in the right lung. The lungs are hyperexpanded but otherwise clear. There is no pneumothorax. Osseous structures are unremarkable. IMPRESSION: No acute cardiopulmonary process. Reviewed, Interpreted and Dictated by Andrew Moore MD Transcribed by Julia Hwang Authenticated and [facility]
[2022-06-04 12:25] LABS: Basophils # 0.1 K/mm3 (0-0.2); Eosinophils # 0.2 K/mm3 (0.0-0.4); Eosinophils % 1.9 % (0.1-12.0); Hematocrit 44.3 % (37.0-47.0); Hemoglobin 13.9 g/dL (12.2-16.2); Lymphocytes # 2.9 K/mm3 (0.7-4.5); Lymphocytes % 25.1 % (10-50); Mean Corpuscular HGB Conc 31.3 g/dL (31.8-35.4); Mean Corpuscular Hemoglobin 29.4 pg (27.0-31.2); Mean Corpuscular Volume 93.9 fl (81-99); Mean Platelet Volume 7.9 fl (7.4-10.4); Monocytes # 0.7 K/mm3 (0.1-1.0); Neutrophils # 7.6 K/mm3 (1.8-7.8); Neutrophils % 65.9 % (37.0-80.0); Platelet Count 408 K/mm3 (142-424); Red Blood Count 4.72 M/mm3 (4.20-5.40); Red Cell Distribution Width 13.6 % (11.5-17.5); White Blood Count 11.6 K/mm3 (4.8-10.8)
== END ==
PROVIDERS: PCP Family Medicine; Visit Provider Nurse Practitioner Family
DX: J40 Bronchitis, not specified as acute or chronic (principal)
CPT/HCPCS: 36415; 71046; 85025

== ENCOUNTER → 2022-08-01 11:09 | Outpatient (CLI) | payer MEDICARE, SELFPAY | PROVIDERS: PCP Nurse Practitioner Family; Visit Provider Nurse Practitioner Family | DX: N39.0 Urinary tract infection, site not specified (principal) | CPT/HCPCS: 87086 ==

== ENCOUNTER → 2022-08-13 14:21 | Outpatient (CLI) | payer MEDICARE, SELFPAY ==
--- NOTE | 2022-08-13 14:25 | XR_ITS ---
FINAL REPORT CLINICAL HISTORY: dyspnea, fever for 2 wks COMPARISON: 06/04/2022 FINDINGS: PA and lateral views of the chest were obtained. The cardiac and mediastinal silhouettes are within normal limits. There are changes of emphysema and evidence of granulomatous disease. There is no acute infiltrate, effusion, or pneumothorax. IMPRESSION: No radiographic evidence of acute cardiac or pulmonary disease. Reviewed, Interpreted and Dictated by Rika Villagomez MD Transcribed by Arcelia Lizarraga Authenticated and [facility]
== END ==
PROVIDERS: PCP Family Medicine; Visit Provider Nurse Practitioner Family
DX: R06.00 Dyspnea, unspecified (principal)
CPT/HCPCS: 71046

== ENCOUNTER 2022-09-02 14:32 | Emergency (ER) | payer MEDICARE, SELFPAY ==
--- NOTE | 2022-09-02 14:53 | EXP.UTC ---
Discharge Plan Disposition Patient Disposition: Home, Self-Care Condition: Good Prescriptions Prescriptions: New azithromycin [Zithromax] 250 mg tablet 250 mg PO UD DOSE PK Qty: 6 0RF Rx Instructions: Take two (2) tablets today, then one (1) tablet days #2 thru #5 benzonatate [benzonatate] 100 mg capsule 100 mg PO TIDP PRN (Reason: Cough) Qty: 30 0RF No Action ibuprofen 400 mg tablet 400 mg PO Q8H PRN budesonide 3 mg capsule,delayed,extend.release 3 mg PO DAILY PRN azithromycin 250 mg tablet See Rx Instructions PO .COMPLEX Qty: 6 0RF Rx Instructions: For 250 mg dose pack: take 500 mg today (day 1), then 250 mg for 4 days (days 2-5) PO albuterol sulfate 90 mcg/actuation HFA aerosol inhaler 1 puff inhalation ONCE PRN Label Comments: INHALE 2 PUFFS BY MOUTH EVERY 6 HOURS NEEDED cyclobenzaprine 10 mg tablet 10 mg PO HS Label Comments: TAKE ONE TABLET BY MOUTH EVERY DAY AT BEDTIME MAY CAUSE DROWSINESS hydroxyzine HCl 25 mg tablet 12.5 mg PO QID PRN (Reason: itching) Qty: 30 0RF Trelegy Ellipta 100-62.5-25 mcg blister with device 1 inh inhalation DAILY Qty: 60 0RF Referrals Follow up/Referrals: Loy Cruz MD [Primary Care Provider] - See instructions Activity Restrictions/Add. Instructions Additional Instructions/Restrictions: Drink plenty of fluids. Take tylenol or ibuprofen for pain or fever. Take the medications as directed. Follow up with your regular doctor. GO TO THE ER FOR ANY WORSENING SYMPTOMS Clinical Impressions Clinical Impression: Acute viral syndrome, Upper respiratory infection Instructions Patient Instructions: DI for Viral Syndrome Discharge ED Provider: Deangelo Bhatia [facility] General Stated complaint: fever,cough Time Seen by Provider: 09/02/22 14:53 History of Present Illness Provider Complaint: She states that for the past 3 days she has had sore throat, sinus drainage and pressure, and fever. She has had nausea also. Related Data Home Medications Medication Instructions Recorded Confirmed ibuprofen 400 mg tablet 400 mg PO Q8H PRN 12/26/21 08/22/22 albuterol sulfate 90 mcg/actuation 1 puff inhalation ONCE PRN 08/08/22 08/22/22 aerosol inhaler budesonide 3 mg 3 mg PO DAILY PRN 08/08/22 08/22/22 capsule,delayed,extended release cyclobenzaprine 10 mg tablet 10 mg PO HS 08/08/22 08/22/22 Previous Rx's Medication Instructions Recorded hydroxyzine HCl 25 mg tablet 12.5 mg PO QID PRN itching #30 tabs 08/08/22 fluticasone fur. 100 mcg-umeclid 1 inh inhalation DAILY #60 ea 08/13/22 62.5 mcg-vilant 25 mcg inhalat.powder (Trelegy Ellipta) azithromycin 250 mg tablet See Rx Instructions PO .COMPLEX #6 08/22/22 tabs azithromycin 250 mg tablet 250 mg PO UD DOSE PK #6 tabs 09/02/22 (Zithromax) benzonatate 100 mg capsule 100 mg PO TIDP PRN Cough #30 caps 09/02/22 Allergies Allergy/AdvReac Type Severity Reaction Status Date / Time Sulfa (Sulfonamide Allergy Mild rash Verified 09/02/22 15:21 Antibiotics) methocarbamol [From Robaxin] Allergy Verified 09/02/22 15:21 Penicillins Allergy Verified 09/02/22 15:21 doxycycline AdvReac Hypertensio Verified 09/02/22 15:21 n methylprednisolone AdvReac Verified 09/02/22 15:21 medrol dos jenae AdvReac Uncoded 08/22/22 15:30 PFSH PFS Disclaimer: The information contained in this section may have been updated after the patient was seen, as this information can be updated by other users. 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 Abdominal pain Chest pain COPD exacerbation COPD exacerbation Exposure to COVID-19 virus Itching Migraine Otitis media Skin problem Syncope and collapse Viral syndrome Viral syndrome Viral upper respiratory illness Surgical History H/O tubal ligation Hx of fusion of cervical spine Family History (Revie
[2022-09-02 15:00] VITALS: BP 107/75; PULSE 104; RESP 20; TEMP 36.9; O2SAT 99; BMI 17.6
[2022-09-02 15:04] LABS: UTC Influenza A Antigen Negative (Negative); UTC Influenza B Antigen Negative (Negative)
[2022-09-02 15:44] VITALS: BP 107/75; PULSE 104; RESP 20; TEMP 36.9; O2SAT 99
[2022-09-02 16:08] LABS: Adenovirus,PCR Not Detected (NotDetected); Bordetella Pertussis Not Detected (NotDetected); Chlamydophila Pneumoniae, PCR Not Detected (NotDetected); Coronavirus 19, PCR Not Detected (NotDetected); Coronavirus 229E Not Detected (NotDetected); Coronavirus NL63 Not Detected (NotDetected); Coronavirus OC43 Not Detected (NotDetected); Coronovirus HKU1,PCR Not Detected (NotDetected); Human Metapneumovirus Not Detected (NotDetected); Influenza A, PCR Not Detected (NotDetected); Influenza AH1, 2009 Not Detected (NotDetected); Influenza AH1, PCR Not Detected (NotDetected); Influenza AH3,PCR Not Detected (NotDetected); Influenza B, PCR Not Detected (NotDetected); Mycoplasma Pneumoniae, PCR Not Detected (NotDetected); Parainfluenza 1, PCR Not Detected (NotDetected); Parainfluenza 2, PCR Not Detected (NotDetected); Parainfluenza 3, PCR Not Detected (NotDetected); Parainfluenza 4, PCR Not Detected (NotDetected); Respiratory Syncytial Virus Not Detected (NotDetected); Rhinovirus/Enterovirus Not Detected (NotDetected)
== END 2022-09-02 15:44 | disposition home or self-care (01) ==
PROVIDERS: Emergency Provider Nurse Practitioner Family; PCP Family Medicine
DX: J06.9 Acute upper respiratory infection, unspecified (principal); J44.9 Chronic obstructive pulmonary disease, unspecified
CPT/HCPCS: 87581; 87632; 87798; 87804; 99212; 99213; C9803; G0463; U0003; U0005

== ENCOUNTER → 2022-09-04 23:37 | Outpatient (CLI) | payer MEDICARE, SELFPAY ==
[2022-09-04 19:22] LABS: Basophils # 0.1 K/mm3 (0-0.2); Basophils % 0.7 % (0.1-2.0); Eosinophils # 0.2 K/mm3 (0.0-0.4); Eosinophils % 1.2 % (0.1-12.0); Hematocrit 39.9 % (37.0-47.0); Hemoglobin 13.2 g/dL (12.2-16.2); Lymphocytes # 2.6 K/mm3 (0.7-4.5); Lymphocytes % 19.2 % (10-50); Mean Corpuscular HGB Conc 32.9 g/dL (31.8-35.4); Mean Corpuscular Hemoglobin 29.7 pg (27.0-31.2); Mean Corpuscular Volume 90.1 fl (81-99); Mean Platelet Volume 8.1 fl (7.4-10.4); Monocytes # 0.9 K/mm3 (0.1-1.0); Neutrophils # 9.6 K/mm3 (1.8-7.8); Neutrophils % 72.1 % (37.0-80.0); Platelet Count 364 K/mm3 (142-424); Red Blood Count 4.43 M/mm3 (4.20-5.40); Red Cell Distribution Width 13.5 % (11.5-17.5); White Blood Count 13.3 K/mm3 (4.8-10.8)
== END ==
PROVIDERS: PCP Family Medicine; Visit Provider Family Medicine
DX: D72.829 Elevated white blood cell count, unspecified (principal)
CPT/HCPCS: 85025

== ENCOUNTER 2022-10-06 09:14 | Emergency (ER) | payer MEDICARE, SELFPAY ==
[2022-10-06 09:37] VITALS: BP 144/85; PULSE 85; RESP 16; TEMP 36.6; O2SAT 95; BMI 38.3
--- NOTE | 2022-10-06 09:49 | HMH.EDGENADL ---
Discharge Plan Disposition Patient Disposition: Home, Self-Care Condition: Good Prescriptions Prescriptions: No Action ibuprofen 400 mg tablet 400 mg PO Q8H PRN budesonide 3 mg capsule,delayed,extend.release 3 mg PO DAILY PRN albuterol sulfate 90 mcg/actuation HFA aerosol inhaler 1 puff inhalation ONCE PRN Label Comments: INHALE 2 PUFFS BY MOUTH EVERY 6 HOURS NEEDED cyclobenzaprine 10 mg tablet 10 mg PO HS Label Comments: TAKE ONE TABLET BY MOUTH EVERY DAY AT BEDTIME MAY CAUSE DROWSINESS hydroxyzine HCl 25 mg tablet 12.5 mg PO QID PRN (Reason: itching) Qty: 30 0RF Trelegy Ellipta 100-62.5-25 mcg blister with device 1 inh inhalation DAILY Qty: 60 0RF Saccharomyces boulardii [Florastor] 250 mg capsule 250 mg PO BID Qty: 60 0RF levofloxacin 250 mg tablet 250 mg PO DAILY 10 Days Qty: 10 0RF Referrals Follow up/Referrals: Loy Cruz MD [Primary Care Provider] - See instructions Activity Restrictions/Add. Instructions Additional Instructions/Restrictions: Follow-up with your primary care provider regarding this visit to the emergency department. Take Tylenol 1000 mg every 6 hours (4 times daily) and ibuprofen 400 mg every 6 hours (4 times daily) as needed with food and water to prevent GI upset and kidney damage. Talk to your primary care provider regarding scheduling physical therapy for back pain and for muscle strengthening to prevent further falls. Clinical Impressions Clinical Impression: Back pain, Muscle spasm Low back pain Qualifiers: Chronicity: acute Sciatica presence: without sciatica Discharge ED Provider: Chao Tse General Adult HPI General Chief complaint: Fall Stated complaint: Back pain, Fall@home 10/02 Time Seen by Provider: 10/06/22 09:25 Mode of Arrival: Wheelchair Source of Information: Patient and Significant Other Limitations: No Limitations Description of Symptoms (Recalled from ER Triage Doc. by RN): pt comes in with c/o lower back pain going down into right leg. pt reports that she was holding her grandson and fell onto her butt. incident happened last night. History of Present Illness HPI narrative: This is a 66-year-old female with history of tobacco use, COPD, osteoporosis, chronic neck and back pain is presenting with acute on chronic lower back pain. Patient states 3 days prior to arrival she was playing with her grandson when she fell backward onto her buttocks onto a carpeted floor. Since that time she has had significant pain in her lumbar spine/right flank. Pain is 10 out of 10, worse when she tries to lift her legs, radiates across her whole lower back just above the level of her pelvis. No obvious fracture bruising or any other injury. Patient denies bowel or bladder dysfunction, saddle anesthesia, lower extremity weakness, but has right lower extremity pain and tingling on her anterior aspect of her thigh. Denies any other trauma, blood thinner use, or any other concerns. Related Data Home Medications Medication Instructions Recorded Confirmed ibuprofen 400 mg tablet 400 mg PO Q8H PRN 12/26/21 09/04/22 albuterol sulfate 90 mcg/actuation 1 puff inhalation ONCE PRN 08/08/22 09/04/22 aerosol inhaler budesonide 3 mg 3 mg PO DAILY PRN 08/08/22 09/04/22 capsule,delayed,extended release cyclobenzaprine 10 mg tablet 10 mg PO HS 08/08/22 09/04/22 Previous Rx's Medication Instructions Recorded hydroxyzine HCl 25 mg tablet 12.5 mg PO QID PRN itching #30 tabs 08/08/22 fluticasone fur. 100 mcg-umeclid 1 inh inhalation DAILY #60 ea 08/13/22 62.5 mcg-vilant 25 mcg inhalat.powder (Trelegy Ellipta) Saccharomyces boulardii 250 mg 250 mg PO BID #60 caps 09/04/22 capsule (Florastor) levofloxacin 250 mg tablet 250 mg PO DAILY 10 days #10 tabs 09/04/22 Allergies Allergy/AdvReac Type Severity Reaction Status Date / Time Sulfa (Sulfonamide Allergy Mild rash Verified 09/04/22 15:24 Antibiotics) methocarb
--- NOTE | 2022-10-06 09:51 | CT_ITS ---
PROCEDURE INFORMATION: Exam: CT Thoracic Spine Without Contrast Exam date and time: 10/06/2022 10:20 AM Age: 66 years old Clinical indication: Pain in thoracic spine; Additional info: C, t, and significant L spine/right pelvic pain TECHNIQUE: Imaging protocol: Computed tomography of the thoracic spine without contrast. Radiation optimization: All CT scans at this facility use at least one of these dose optimization techniques: automated exposure control; mA and/or kV adjustment per patient size (includes targeted exams where dose is matched to clinical indication); or iterative reconstruction. REPORTING DATA: Count of CT and Cardiac NM exams in prior 12 months: This patient has received 3 known CTs and 0 known cardiac nuclear medicine studies in the 12 months prior to the current study. COMPARISON: CT CERVICAL SPINE WO CON 10/06/2022 10:13 AM FINDINGS: Bones/joints: There is preservation of vertebral alignment and vertebral body heights. Facet joints are aligned. No acute fracture. There is no significant osseous encroachment of the spinal canal or neural foraminal narrowing at any level. Soft tissues: Unremarkable. Lymph nodes: Calcified mediastinal and hilar lymph nodes suggest prior granulomatous exposure. Lungs: Upper lobe predominant centrilobular emphysema noted. Pleural spaces: Biapical pleural scarring. IMPRESSION: No acute fracture. No traumatic subluxation.
--- NOTE | 2022-10-06 09:51 | CT_ITS ---
PROCEDURE INFORMATION: Exam: CT Lumbar Spine Without Contrast Exam date and time: 10/06/2022 10:22 AM Age: 66 years old Clinical indication: Low back pain; Additional info: C, t, and significant L spine/right pelvic pain TECHNIQUE: Imaging protocol: Computed tomography of the lumbar spine without contrast. Radiation optimization: All CT scans at this facility use at least one of these dose optimization techniques: automated exposure control; mA and/or kV adjustment per patient size (includes targeted exams where dose is matched to clinical indication); or iterative reconstruction. REPORTING DATA: Count of CT and Cardiac NM exams in prior 12 months: This patient has received 3 known CTs and 0 known cardiac nuclear medicine studies in the 12 months prior to the current study. COMPARISON: SPLUMBWO CT lumbar spine wo con 08/28/2018 11:56 PM FINDINGS: Bones/joints: Anterolisthesis of L5 over S1 attributed to a chronic right pars defects. No acute fracture.Vertebral body heights are maintained. Normal sacroiliac joints are intact. There is mild to moderate bilateral neural foramina particularly at L4-L5 and L5-S1 attributed to a combination of diffuse disc bulge and facet arthropathy. There is no significant osseous encroachment of the spinal canal at any level. Vasculature: The aorta demonstrates severe atherosclerotic calcification and ectasia. Soft tissues: Unremarkable. IMPRESSION: 1. No acute fracture. No traumatic subluxation. 2. Multilevel degenerative changes as above.
--- NOTE | 2022-10-06 09:51 | CT_ITS ---
PROCEDURE INFORMATION: Exam: CT Pelvis Without Contrast; Skeletal Exam date and time: 10/06/2022 10:25 AM Age: 66 years old Clinical indication: Pelvic pain; Additional info: C, t, and significant L spine/right pelvic pain TECHNIQUE: Imaging protocol: Computed tomography of the pelvis without contrast. Exam focused on the skeleton. Radiation optimization: All CT scans at this facility use at least one of these dose optimization techniques: automated exposure control; mA and/or kV adjustment per patient size (includes targeted exams where dose is matched to clinical indication); or iterative reconstruction. REPORTING DATA: Count of CT and Cardiac NM exams in prior 12 months: This patient has received 3 known CTs and 0 known cardiac nuclear medicine studies in the 12 months prior to the current study. COMPARISON: CT ABDOMEN PELVIS W CON 04/17/2020 1:21 PM FINDINGS: Bones/joints: For findings in the lumbar spine, please refer to the separately dictated lumbar spine CT report under a separate accession number. Soft tissues: Muscles normal in. No acute fracture. Hip osteoarthritis, as evidenced by diffuse joint space narrowing. No significant joint effusion. There is osteophyte formation along the inferior acetabulum. IMPRESSION: No acute fracture. Mild bilateral hip osteoarthritis
--- NOTE | 2022-10-06 09:51 | CT_ITS ---
PROCEDURE INFORMATION: Exam: CT Cervical Spine Without Contrast Exam date and time: 10/06/2022 10:13 AM Age: 66 years old Clinical indication: Neck pain; Additional info: C, t, and significant L spine/right pelvic pain TECHNIQUE: Imaging protocol: Computed tomography of the cervical spine without contrast. Radiation optimization: All CT scans at this facility use at least one of these dose optimization techniques: automated exposure control; mA and/or kV adjustment per patient size (includes targeted exams where dose is matched to clinical indication); or iterative reconstruction. REPORTING DATA: Count of CT and Cardiac NM exams in prior 12 months: This patient has received 3 known CTs and 0 known cardiac nuclear medicine studies in the 12 months prior to the current study. COMPARISON: CR XR CHEST 2V 08/13/2022 2:51 PM FINDINGS: Bones/joints: There are postoperative changes related to C3-C6 ACDF. Photon starvation and streaky artifact from surgical hardware slightly obscures the assessment of the surrounding structures. there is straightening lordosis. Degenerative of C7-T1. Vertebral body heights are maintained. Facet joints are aligned. Pronounced discogenic changes at C6-C7.Odontoid process is intact. Atlantoaxial interval is maintained. Uncovertebral and facet degenerative changes produce varying degrees of neural foraminal narrowing at multiple levels. Lungs: Upper lobe centrilobular emphysema noted. Pleural spaces: Biapical pleural scarring. Soft tissues: Unremarkable. IMPRESSION: 1. No acute fracture. No traumatic subluxation. 2. Multilevel degenerative changes producing varying degrees of neural foraminal narrowing at multiple levels.
[2022-10-06 10:00] VITALS: BP 135/80; PULSE 82; O2SAT 100
--- NOTE | 2022-10-06 10:10 | PC.NURSE ---
pt to radiology
--- NOTE | 2022-10-06 10:32 | PC.NURSE ---
pt from CT. Spouse at BS
[2022-10-06 10:36] VITALS: BP 136/82; PULSE 63; O2SAT 100
[2022-10-06 11:01] VITALS: BP 138/72; PULSE 62; O2SAT 97
[2022-10-06 11:32] VITALS: BP 134/79; PULSE 65; RESP 16; TEMP 36.7
--- NOTE | 2022-10-06 11:37 | PC.NURSE ---
er 2 bs
== END 2022-10-06 12:15 | disposition home or self-care (01) ==
PROVIDERS: Emergency Provider Emergency Medicine; PCP Family Medicine
DX: M54.50 Low back pain, unspecified (principal); M54.2 Cervicalgia; W01.0XXA Fall on same level from slipping, tripping and stumbling without subsequent striking against object, initial encounter
CPT/HCPCS: 72125; 72128; 72131; 72192; 96372; 99284; 99285

== ENCOUNTER → 2022-11-06 08:40 | Outpatient (CLI) | payer MEDICARE, SELFPAY ==
--- NOTE | 2022-11-06 08:41 | XR_ITS ---
FINAL REPORT TECHNIQUE: Bone densitometry calculations of the lumbar spine and left hip were obtained. CLINICAL HISTORY: . OSTEOPOROSIS FINDINGS: DEXA BONE DENSITY AXIAL SKELETON Using L1-4, the bone mineral density of the spine is 0.828 g/cm2, corresponding to T-score of -2.0. Using the left hip, the bone mineral density of the femoral neck is 0.546 g/cm2, corresponding to a T-score of -3.2. NOTE: T-score: Standard deviation compared with peak bone mass of young adult mean. *Following the recommendations of the International Society of Bone Densitometry, classification of hip BMD is based on the lower of two T-scores; total hip or femoral neck. IMPRESSION: Osteoporosis: Lowest T-score is at or below -2.5. This patient's T-score meets the World Health Organization criteria for osteoporosis. Reviewed, Interpreted and Dictated by Braydon Watters III, MD Transcribed by Vandana Forde Authenticated and [facility]
== END ==
PROVIDERS: PCP Family Medicine; Visit Provider Family Medicine
DX: N95.9 Unspecified menopausal and perimenopausal disorder (principal); M81.0 Age-related osteoporosis without current pathological fracture
CPT/HCPCS: 77080

== ENCOUNTER 2022-12-11 13:14 | Outpatient (CLI) | payer MEDICARE, SELFPAY ==
[2022-12-11 13:20] VITALS: BMI 17.5
[2022-12-11 13:46] LABS: Creatinine Clearance Estimated 34 mL/min (50-200); Estimated Glomerular Filt Rate 55 ml/min (>60); GFR (African American) 67 ML/MIN (>60)
[2022-12-11 13:47] LABS: Calcium 9.2 mg/dl (8.4-10.2)
[2022-12-11 14:11] VITALS: BP 103/68; PULSE 76; RESP 18; TEMP 36.8; O2SAT 98
[2022-12-11 14:30] VITALS: BP 95/57; PULSE 77; RESP 18; O2SAT 98
== END 2022-12-11 14:35 | disposition home or self-care (01) ==
LOC: INF 13:14
PROVIDERS: PCP Family Medicine; Visit Provider Family Medicine
DX: M81.0 Age-related osteoporosis without current pathological fracture (principal)
CPT/HCPCS: 82040; 82310; 82565; 96374; J3489

== ENCOUNTER → 2023-01-04 11:00 | Outpatient (CLI) | payer MEDICARE, SELFPAY ==
--- NOTE | 2023-01-04 11:06 | XR_ITS ---
FINAL REPORT CLINICAL HISTORY: Shortness of breath, couch x 1-2 wks. R/O pneumonia. Smoker, 0 ca hx. COPD. COMPARISON: 08/13/2022 FINDINGS: Two views of the chest were obtained. The heart size and pulmonary vascularity are within normal limits. The mediastinum is normal. There is hyperinflation of the lungs consistent with COPD. No acute pulmonary abnormality is identified. There is no pneumothorax. The bony thorax is intact. IMPRESSION: No active cardiopulmonary disease. Reviewed, Interpreted and Dictated by Braydon Watters III, MD Transcribed by Arlen Dawson Authenticated and . [facility]
== END ==
PROVIDERS: PCP Family Medicine; Visit Provider Nurse Practitioner Family
DX: R06.00 Dyspnea, unspecified (principal)
CPT/HCPCS: 71046

== ENCOUNTER → 2023-03-27 13:07 | Outpatient (CLI) | payer MEDICARE, SELFPAY ==
[2023-03-27 13:59] LABS: Hemoglobin A1C 5.8 % (4.0-6.0)
[2023-03-27 14:24] LABS: Alanine Aminotransferase 19 U/L (12-78); Albumin Level 3.7 g/dl (3.5-5.0); Albumin/Globulin Ratio 1.2 (1.1-1.8); Alkaline Phosphatase 81 U/L (38-126); Aspartate Amino Transferase 24 U/L (14-36); Bilirubin,Total 0.5 mg/dl (0.2-1.3); Calcium 9.1 mg/dl (8.4-10.2); Carbon Dioxide 26 mmol/L (22.0-30.0); Chloride 106 mmol/L (98-107); Cholesterol 219 mg/dl (140-200); Globulin 3.1 g/dL (1.3-3.2); Glucose 104 mg/dl (74-100); HDL Cholesterol 55 mg/dl (40-60); Sodium 139 mmol/L (136-145); Total Protein,Serum 6.8 g/dl (6.3-8.2); Triglycerides 129 mg/dl (30-150); VLDL Cholesterol 26 mg/dL (0-40)
[2023-03-27 14:25] LABS: Anion Gap 11.7 mEq/L (5-15); Blood Urea Nitrogen 10 mg/dl (7-17); Estimated Glomerular Filt Rate 63 ml/min (>60); GFR (African American) 76 ML/MIN (>60); Potassium 4.7 mmoL/L (3.5-5.1)
[2023-03-27 14:40] LABS: 25-OH Vitamin D, Total 26.6 ng/mL (30-100); Direct LDL Cholesterol 135.43 mg/dL (100-129)
[2023-03-27 14:42] LABS: Free T4 (Free Thyroxine) 1.21 ng/dl (0.78-2.19)
[2023-03-27 15:14] LABS: Vitamin B12 847 pg/mL (239-931)
[2023-03-27 16:48] LABS: Basophils % 0.2 % (0.1-2.0); Eosinophils # 0.1 K/mm3 (0.0-0.4); Eosinophils % 1.1 % (0.1-12.0); Hematocrit 40.6 % (37.0-47.0); Hemoglobin 13.3 g/dL (12.2-16.2); Lymphocytes # 2.3 K/mm3 (0.7-4.5); Lymphocytes % 17.6 % (10-50); Mean Corpuscular HGB Conc 32.8 g/dL (31.8-35.4); Mean Corpuscular Volume 91.2 fl (81-99); Mean Platelet Volume 8.8 fl (7.4-10.4); Monocytes % 7.5 % (1.7-9.3); Neutrophils # 9.8 K/mm3 (1.8-7.8); Neutrophils % 73.7 % (37.0-80.0); Platelet Count 318 K/mm3 (142-424); Red Blood Count 4.45 M/mm3 (4.20-5.40); White Blood Count 13.3 K/mm3 (4.8-10.8)
== END ==
PROVIDERS: PCP Nurse Practitioner Family; Visit Provider Nurse Practitioner Family
DX: F41.9 Anxiety disorder, unspecified (principal); E11.9 Type 2 diabetes mellitus without complications; Z13.1 Encounter for screening for diabetes mellitus; R53.83 Other fatigue; M81.0 Age-related osteoporosis without current pathological fracture; E78.9 Disorder of lipoprotein metabolism, unspecified; Z13.220 Encounter for screening for lipoid disorders; Z87.891 Personal history of nicotine dependence
CPT/HCPCS: 36415; 80053; 80061; 81001; 82306; 82607; 83036; 84439; 84443; 85025

== ENCOUNTER → 2023-04-01 12:45 | Outpatient (CLI) | payer MEDICARE, SELFPAY ==
[2023-04-01 12:56] LABS: Microscopic, Urine URINE MICROSCOPIC (MICROSCOPIC)
--- NOTE | 2023-04-01 12:57 | XR_ITS ---
FINAL REPORT CLINICAL HISTORY: dyspnea COMPARISON: None FINDINGS: Two views of the chest were obtained. The heart size and pulmonary vascularity are within normal limits. Hyperinflation is present consistent with chronic obstructive pulmonary disease. The mediastinum is normal. No acute pulmonary abnormality is identified. There is no pneumothorax. The bony thorax is intact with postoperative changes in the lower cervical spine. IMPRESSION: Hyperinflation compatible with chronic obstructive pulmonary disease. Reviewed, Interpreted and Dictated by Braydon Watters III, MD Transcribed by Rhina Hall Authenticated and [facility]
--- NOTE | 2023-04-01 12:57 | XR_ITS ---
FINAL REPORT TECHNIQUE: Abdomen 2 views CLINICAL HISTORY: abd pain COMPARISON: None FINDINGS: ABDOMEN: Views of the abdomen reveal a nonspecific bowel gas pattern with scattered air-fluid levels, that may represent an ileus versus an enteritis. There are left-sided abdominal calcifications. There is a question of subtle retroperitoneal air on the right side, and would consider CT for further evaluation as indicated. IMPRESSION: Nonspecific bowel gas pattern with scattered air-fluid levels that may represent an ileus versus an enteritis. Question of subtle retroperitoneal air on the right side, would consider CT for further evaluation as indicated. Reviewed, Interpreted and Dictated by Braydon Watters III, MD Transcribed by Rhina Hall Authenticated and [facility]
[2023-04-01 13:59] LABS: Appearance,Urine SL CLOUDY (Clear); Blood, Urine Negative (Negative); Color,Urine ORANGE (Yellow); Glucose,Urine (UA) Negative (Negative); Ketones,Urine Negative (Negative); Leukocyte Esterase,Urine Negative (Negative); Nitrate,Urine Negative (Negative); PH,Urine 5.5 (5.0-8.5); Protein,Urine Negative (Negative); Specific Gravity, Urine >= 1.030 (1.005-1.030); Urobilinogen,Urine 0.2 EU/dl (0.2)
[2023-04-01 14:04] LABS: Bilirubin,Urine 1+ (Negative)
[2023-04-01 14:11] LABS: Bacteria,Urine Trace /lpf; Squamous Epithelial Cell,Urine Occasional #/hpf (0-5); WBC,Urine Occasional #/hpf (0-3)
[2023-04-01 17:09] LABS: Erythrocyte Sedimentation Rate 60 mm/hr (0-30)
[2023-04-01 17:22] LABS: Alanine Aminotransferase 17 U/L (12-78); Albumin Level 4.1 g/dl (3.5-5.0); Albumin/Globulin Ratio 1.2 (1.1-1.8); Alkaline Phosphatase 72 U/L (38-126); Anion Gap 15.4 mEq/L (5-15); Aspartate Amino Transferase 26 U/L (14-36); Bilirubin,Total 0.6 mg/dl (0.2-1.3); Blood Urea Nitrogen 10 mg/dl (7-17); Calcium 9.3 mg/dl (8.4-10.2); Carbon Dioxide 26 mmol/L (22.0-30.0); Chloride 102 mmol/L (98-107); Estimated Glomerular Filt Rate 63 ml/min (>60); GFR (African American) 76 ML/MIN (>60); Globulin 3.5 g/dL (1.3-3.2); Glucose 75 mg/dl (74-100); Potassium 4.4 mmoL/L (3.5-5.1); Sodium 139 mmol/L (136-145); Total Protein,Serum 7.6 g/dl (6.3-8.2)
[2023-04-01 17:28] LABS: C-Reactive Protein 38.6 mg/L (0-4)
[2023-04-01 17:44] LABS: Basophils % 0.3 % (0.1-2.0); Eosinophils # 0.1 K/mm3 (0.0-0.4); Eosinophils % 0.7 % (0.1-12.0); Hematocrit 43.7 % (37.0-47.0); Lymphocytes # 2.5 K/mm3 (0.7-4.5); Lymphocytes % 22.6 % (10-50); Mean Corpuscular Hemoglobin 29.2 pg (27.0-31.2); Mean Corpuscular Volume 91.2 fl (81-99); Mean Platelet Volume 9.2 fl (7.4-10.4); Monocytes # 1.3 K/mm3 (0.1-1.0); Monocytes % 11.4 % (1.7-9.3); Neutrophils # 7.2 K/mm3 (1.8-7.8); Neutrophils % 65.1 % (37.0-80.0); Platelet Count 373 K/mm3 (142-424); Red Blood Count 4.79 M/mm3 (4.20-5.40)
== END ==
PROVIDERS: PCP Family Medicine; Visit Provider Nurse Practitioner Family
DX: Z13.1 Encounter for screening for diabetes mellitus (principal); R10.9 Unspecified abdominal pain; R06.00 Dyspnea, unspecified; D72.829 Elevated white blood cell count, unspecified
CPT/HCPCS: 71046; 74019; 80053; 81001; 85025; 85651; 86140

== ENCOUNTER → 2023-04-03 10:48 | Outpatient (CLI) | payer MEDICARE, SELFPAY ==
--- NOTE | 2023-04-03 10:49 | CT_ITS ---
FINAL REPORT CLINICAL HISTORY: Abnormal xray, questionable ileus versus enteritis COMPARISON: 04/17/2020 FINDINGS: Axial CT images of the abdomen and pelvis were obtained without intravenous contrast. Coronal and sagittal reformatted images were also obtained.This study was performed with techniques to keep radiation doses as low as reasonably achievable (ALARA). Individualized dose reduction techniques using automated exposure control or adjustment of mA and/or kV according to the patient's size were employed. Abdomen: There is mild emphysema seen in the lung bases. Moderate vascular calcifications are identified. There is no evidence of renal stone or hydronephrosis.The liver, spleen and pancreas have an unremarkable, unenhanced appearance. No mass or adenopathy is seen. There is mild wall thickening of the colon in both the abdomen and pelvis, that is nonspecific but may represent a mild colitis. No evidence of retroperitoneal air is seen. Pelvis: Images of the pelvis reveal no evidence of ureteral dilation or ureteral stone.No mass or abnormal fluid collection is identified. IMPRESSION: Mild wall thickening in the colon, nonspecific but may represent a mild colitis. Reviewed, Interpreted and Dictated by Braydon Watters III, MD Transcribed by Rhina Hall Authenticated and [facility]
== END ==
PROVIDERS: PCP Family Medicine; Visit Provider Nurse Practitioner Family
DX: R10.9 Unspecified abdominal pain (principal); R93.5 Abnormal findings on diagnostic imaging of other abdominal regions, including retroperitoneum
CPT/HCPCS: 74176

== ENCOUNTER → 2023-04-09 15:14 | Outpatient (CLI) | payer MEDICARE, SELFPAY ==
--- NOTE | 2023-04-09 15:15 | CT_ITS ---
FINAL REPORT CLINICAL HISTORY: lung cancer screening, SMOKER FOR 30 YEARS 1PPD, CURRENT SMOKER COMPARISON: None FINDINGS: CT CHEST LOW DOSE SCREENING HISTORY: Screening exam for lung cancer. Current smoker, 30 pack year smoking history DOSE: CTDIvol: 2.9 mGy, DLP: 98.21 mGy*cm COMPARISON: None . TECHNIQUE: Axial CT without IV contrast administration using low dose protocol FINDINGS: No acute lung disease is present . Calcified right hilar nodes are identified. There are advanced changes of centrilobular emphysema. There is bilateral pleural and parenchymal scarring noted. There is an 8 mm irregular density in the periphery of the right upper lobe, partially solid, best seen on image #21 of series 4. No pleural or pericardial effusion is seen . No adenopathy or mass lesion is present . IMPRESSION: Advanced changes of centrilobular emphysema. 8 mm irregular density right upper lobe as described, partially solid, and irregular in appearance. Recommend 6-month follow-up LDCT as this is a lung RADS category 3 mass. LUNG RADS CATEGORY 3 RECOMMENDATION: 6 month LDCT follow up Reviewed, Interpreted and Dictated by Andrew Moore MD Transcribed by Rhina Hall Authenticated and [facility]
== END ==
PROVIDERS: PCP Family Medicine; Visit Provider Nurse Practitioner Family
DX: Z12.2 Encounter for screening for malignant neoplasm of respiratory organs (principal); Z87.891 Personal history of nicotine dependence
CPT/HCPCS: 71271

== ENCOUNTER → 2023-06-06 10:51 | Outpatient (CLI) | payer MEDICARE, SELFPAY ==
--- NOTE | 2023-06-06 10:57 | XR_ITS ---
FINAL REPORT CLINICAL HISTORY: rib pain on right side COMPARISON: None FINDINGS: 3 views of the right ribs were obtained. There is no displaced, acute fracture identified. The visualized lungs are clear. No pneumothorax is identified. IMPRESSION: No displaced rib fracture or pneumothorax identified. Reviewed, Interpreted and Dictated by Andrew Moore MD Transcribed by Arlen Dawson Authenticated and [facility]
[2023-06-06 11:34] LABS: Basophils # 0.1 K/mm3 (0-0.2); Basophils % 0.8 % (0.1-2.0); Eosinophils # 0.2 K/mm3 (0.0-0.4); Eosinophils % 1.7 % (0.1-12.0); Hemoglobin 14.6 g/dL (12.2-16.2); Lymphocytes # 2.5 K/mm3 (0.7-4.5); Lymphocytes % 26.5 % (10-50); Mean Corpuscular HGB Conc 33.9 g/dL (31.8-35.4); Mean Corpuscular Hemoglobin 31.3 pg (27.0-31.2); Mean Corpuscular Volume 92.3 fl (81-99); Mean Platelet Volume 7.9 fl (7.4-10.4); Monocytes # 0.7 K/mm3 (0.1-1.0); Monocytes % 7.3 % (1.7-9.3); Neutrophils % 63.8 % (37.0-80.0); Platelet Count 326 K/mm3 (142-424); Red Blood Count 4.66 M/mm3 (4.20-5.40); Red Cell Distribution Width 14.1 % (11.5-17.5); White Blood Count 9.3 K/mm3 (4.8-10.8)
[2023-06-06 12:18] LABS: Anion Gap 12.4 mEq/L (5-15); Blood Urea Nitrogen 7 mg/dl (7-17); Calcium 9.4 mg/dl (8.4-10.2); Carbon Dioxide 27 mmol/L (22.0-30.0); Chloride 103 mmol/L (98-107); Estimated Glomerular Filt Rate 63 ml/min (>60); GFR (African American) 76 ML/MIN (>60); Glucose 95 mg/dl (74-100); Potassium 4.4 mmoL/L (3.5-5.1); Sodium 138 mmol/L (136-145)
== END ==
PROVIDERS: Nurse Practitioner Family; PCP Family Medicine; Visit Provider Nurse Practitioner
DX: R07.81 Pleurodynia (principal); R91.8 Other nonspecific abnormal finding of lung field
CPT/HCPCS: 36415; 71101; 80048; 85025

== ENCOUNTER → 2023-07-17 23:42 | Outpatient (CLI) | payer MEDICARE, SELFPAY ==
[2023-07-17 19:23] LABS: Adenovirus,PCR Not Detected (NotDetected); Coronavirus 19, PCR Not Detected (NotDetected); Coronavirus 229E Not Detected (NotDetected); Coronavirus NL63 Not Detected (NotDetected); Coronavirus OC43 Not Detected (NotDetected); Coronovirus HKU1,PCR Not Detected (NotDetected); Human Metapneumovirus Not Detected (NotDetected); Influenza A, PCR Not Detected (NotDetected); Influenza AH1, 2009 Not Detected (NotDetected); Influenza AH1, PCR Not Detected (NotDetected); Influenza AH3,PCR Not Detected (NotDetected); Influenza B, PCR Not Detected (NotDetected); Parainfluenza 1, PCR Not Detected (NotDetected); Parainfluenza 2, PCR Not Detected (NotDetected); Parainfluenza 3, PCR Not Detected (NotDetected); Parainfluenza 4, PCR Not Detected (NotDetected); Respiratory Syncytial Virus Not Detected (NotDetected); Rhinovirus/Enterovirus Not Detected (NotDetected)
== END ==
LOC: LAB.DROPOF 23:42
PROVIDERS: PCP Family Medicine; Visit Provider Nurse Practitioner Family
DX: H92.03 Otalgia, bilateral; J02.9 Acute pharyngitis, unspecified; R51.9 Headache, unspecified; Z20.822 Contact with and (suspected) exposure to COVID-19; R05.8 Other specified cough
CPT/HCPCS: 87581; 87632; 87635; 87798

== ENCOUNTER 2023-07-24 16:02 | Emergency (ER) | payer MEDICARE, SELFPAY ==
[2023-07-24 17:00] VITALS: BP 139/82; PULSE 95; RESP 18; TEMP 36.7; O2SAT 97; BMI 16.7
[2023-07-24 17:10] LABS: UTC Strep Screen (Rapid) Negative (Negative)
--- NOTE | 2023-07-24 17:22 | EXP.UTC ---
Discharge Plan Disposition Patient Disposition: Home, Self-Care Condition: Good Prescriptions Prescriptions: New azithromycin [azithromycin] 250 mg tablet 250 mg PO DIRECTED Qty: 6 0RF Rx Instructions: Take two (2) tablets on day #1, then one (1) tablet day #2 thru #5 No Action cyclobenzaprine 10 mg tablet 10 mg PO HS budesonide 3 mg capsule,delayed,extend.release 3 mg PO TID PRN Patient Comments: TAKE ONE CAPSULE BY MOUTH EVERY DAY cholecalciferol (vitamin D3) 125 mcg (5,000 unit) capsule 125 mcg PO DAILY cyanocobalamin (vitamin B-12) 1,000 mcg capsule 1,000 mcg PO DAILY coenzyme Q10 400 mg capsule 400 mg PO DAILY albuterol sulfate 90 mcg/actuation HFA aerosol inhaler 2 puff inhalation Q6H PRN (Reason: shortness of breath or wheezing) Qty: 8.5 2RF sucralfate 1 gram tablet See Rx Instructions .ROUTE .COMPLEX Patient Comments: TAKE ONE TABLET BY MOUTH FOUR TIMES DAILY Rx Instructions: TAKE ONE TABLET BY MOUTH FOUR TIMES DAILY famotidine 40 mg tablet 40 mg PO DAILY Patient Comments: TAKE ONE TABLET BY MOUTH EVERY DAY AT NIGHT colestipol 1 gram tablet 2 g PO DAILY Referrals Follow up/Referrals: Loy Cruz MD [Primary Care Provider] - See instructions Activity Restrictions/Add. Instructions Additional Instructions/Restrictions: Start antibiotics today be sure to take it as ordered with the full length of time although you should start feeling better in 24-48 hours. Change toothbrush and toothpaste 24-48 hours after starting antibiotics Tylenol or Motrin as needed for fever or pain Encourage fluids, water, Gatorade, Powerade, try cold fluids, popsicles, ice cream will make it feel better You are contagious for 24 hours. Avoid kissing anyone, no eating or drinking after anyone. You are contagious. Follow-up the ER for new or worsening symptoms or no noticeable improvement over the next 24-48 hours. Follow-up with PCP this week. Clinical Impressions Clinical Impression: Strep sore throat Otitis media Qualifiers: Otitis media type: suppurative Chronicity: acute Laterality: left Recurrence: non-recurrent Spontaneous tympanic membrane rupture: without spontaneous rupture Qualified Code(s): H66.002 - Acute suppurative otitis media without spontaneous rupture of ear drum, left ear Instructions Patient Instructions: DI for Strep Throat, Middle Ear Infection Discharge ED Provider: Jodie ([facility])Carlos [facility] [place] HPI General Stated complaint: exposed to strep- sore throat,cough,earache Mode of Arrival: Ambulatory Source of Information: Patient Limitations: No Limitations Time Seen by Provider: 07/24/23 17:22 Description of Symptoms (Recalled from Triage Doc. by RN): bilateral ear pain, sore throat, and was exposed to strep HEENT Symptoms (Recalled from RN notes): Yes Resp Symptoms (Recalled from RN notes): No Skin Symptoms (Recalled from RN notes): No MS Symptoms (Recalled from RN notes): No Functional Status (Recalled from RN notes): n./a History of Present Illness Provider Complaint: 67 yr old female presents for bilateral ear pain, sore throat, and was exposed to strep Related Data Home Medications Medication Instructions Recorded Confirmed cyclobenzaprine 10 mg tablet 10 mg PO HS 12/04/22 07/24/23 budesonide 3 mg 3 mg PO TID PRN 03/21/23 07/17/23 capsule,delayed,extended release cholecalciferol (vitamin D3) 125 125 mcg PO DAILY 03/21/23 07/17/23 mcg (5,000 unit) capsule coenzyme Q10 400 mg capsule 400 mg PO DAILY 03/21/23 07/17/23 cyanocobalamin (vitamin B-12) 1,000 mcg PO DAILY 03/21/23 07/17/23 1,000 mcg capsule colestipol 1 gram tablet 2 g PO DAILY 07/24/23 07/24/23 famotidine 40 mg tablet 40 mg PO DAILY 07/24/23 07/24/23 sucralfate 1 gram tablet See Rx Instructions .Route .COMPLEX 07/24/23 07/24/23 Previous Rx's Medication Instructions Recorded albuterol sulfate 90 mcg/actuation 2 puff inhalation Q6H PRN 06/06/23 aerosol inhaler shortness of breath or wheezing #8.5 grams azithromycin 250 mg tablet 250 mg PO DIRECTED #6 tabs 07/24/23 Allergies Allergy/AdvReac Type Severity Reaction Status Date / Time Sulfa (Sulfonamide Allergy Mild rash Verified 07/24/23 17:19 Antibiotics) methocarbamol [From Robaxin] Allergy Verified 07/24/23 17:19 Penicillins Allergy Verified 07/24/23 17:19 doxycycline AdvReac Hypertensio Verified 07/24/23 17:19 n methylprednisolone AdvReac Verified 07/24/23 17:19 medrol dos jenae AdvReac Uncoded 06/06/23 09:32 Worker's Comp Is this a Worker's Comp case?: No [facility] Disclaimer: The information contained in this section may have been updated after the patient was seen, as this information can be updated by other users. 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 , [employer]) Abdominal pain Acute viral syndrome Allergy to sulfa drugs Back pain Bronchitis Chest pain COPD exacerbation COPD exacerbation Dyspnea Exposure to COVID-19 virus Fatigue Itching Low back pain Lumbar radiculopathy Migraine Muscle spasm Otitis media Otitis media of right ear Sinusitis Skin problem Syncope and collapse Upper respiratory infection Viral syndrome Viral syndrome Viral upper respiratory illness Surgical History , STRE[employer]) H/O tubal ligation Hx of fusion of cervical spine Family History , STRE[employer]) Father Mother Sister Coronary artery disease Father Hyperlipidemia Son Cancer Mother Sister Sister Hypertension Sister 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 , STRE[employer]) Smoking Status: Current every day smoker tobacco type: cigarettes packs per day: 1 years smoked: 30 alcohol intake: never current occupational status: retired Travel in the last 8 weeks: None caffeine: Yes ROS Obtained: Yes All systems reviewed & no additional complaints except as documented Constitutional Constitutional: Reports system reviewed and no additional complaints, except as documented Eyes Eyes: Reports system reviewed and no additional complaints, except as documented ENT Ears, Nose, Mouth, and Throat: Reports system reviewed and no additional complaints, except as documented, Reports as per HPI, Reports otalgia and Reports sore throat Cardiovascular Cardiovascular: Reports system reviewed and no additional complaints, except as documented Respiratory Respiratory: Reports system reviewed and no additional complaints, except as documented Gastrointestinal Gastrointestingal: Reports system reviewed and no additional complaints, except as documented Musculoskeletal Musculoskeletal: Reports system reviewed and no additional complaints, except as documented Integumentary/Breasts Skin/Breast: Reports system reviewed and no additional complaints, except as documented Neurologic Neurologic: Reports system reviewed and no additional complaints, except as documented Endocrine Endocrine: Reports system reviewed and no additional complaints, except as documented Hematologic/Lymphatic Henatologic/Lymphatic: Reports system reviewed and no additional complaints, except as documented Allergic/Immunologic Allergic/Immunologic: Reports system reviewed and no additional complaints, except as documented Physical Exam General General appearance: alert and in no apparent distress Head Head exam: atraumatic Eye Eye exam: Present normal appearance and PERRL ENT ENT exam: Present mucous membranes moist Expanded ENT Exam TM/Canal exam: Right TM: erythema Throat exam: Present tonsillar erythema, tonsillomegaly and tonsillar exudate Respiratory Respiratory exam: Present normal lung sounds bilaterally Cardiovascular Cardiovascular exam: Present regular rate and normal rhythm Neurological Exam Neurological exam: Present alert and oriented X3 Medical Decision Making Medical Records Medical records reviewed: Yes I reviewed the patient's medical records. Bairon Inquiry Pt receiving controlled substance: No Bairon was queried for this patient: No Vital Signs: 07/24/23 17:00 Temperature 98.1 F Temperature Source Oral Pulse Rate [Right Radial] 95 H Respiratory Rate 18 Blood Pressure [Right Arm] 139/82 Blood Pressure Mean [Right Arm] 101 Blood Pressure Source [Right Arm] Automatic Cuff Blood Pressure Position [Right Arm] Sitting 02 Sat by Pulse Oximetry 97 Oxygen Delivery Method Room Air Lab Data Lab results reviewed: Yes I reviewed the patient's lab results. Lab Results 07/24/23 16:54: Strep Scn Rapid Clinic Negative Orders (Tests/Meds): ORDERS Category Date Time Status Strep Screen Confirmation Stat Micro 07/24/23 16:54 Received
[2023-07-24 17:46] VITALS: BP 139/82; PULSE 95; RESP 18; TEMP 36.7; O2SAT 97
== END 2023-07-24 17:46 | disposition home or self-care (01) ==
PROVIDERS: Emergency Provider Nurse Practitioner Family; PCP Family Medicine
DX: J02.0 Streptococcal pharyngitis (principal); H66.002 Acute suppurative otitis media without spontaneous rupture of ear drum, left ear; R07.0 Pain in throat; R05.9 Cough, unspecified; F17.210 Nicotine dependence, cigarettes, uncomplicated; J44.9 Chronic obstructive pulmonary disease, unspecified
CPT/HCPCS: 87880; 99212; 99214; G0463

== ENCOUNTER 2023-08-04 16:19 | Emergency (ER) | payer MEDICARE, SELFPAY ==
[2023-08-04] VITALS (7 sets, daily range): BP systolic 113–134; BP diastolic 74–80; PULSE 74–89; RESP 18–24; TEMP 36.6–36.7; O2SAT 96–99; BMI 16.7
--- NOTE | 2023-08-04 16:27 | ECG_ITS ---
APPROVED REPORT Exam: Resting ECG HR:84 bpm ECG Measurements Heart Rate 84 AXES WI 130 P 79 QRSd 67 QRS 54 QT 393 T 78 QTc 434 Conclusion SINUS RHYTHM LOW QRS VOLTAGE IN EXTREMITY LEADS [QRS DEFLECTION < 0.5 mV IN LIMB LEADS] BORDERLINE ECG UNCONFIRMED REPORT Electronically signed by : Michael Padgett MD 08/05/2023 20:19:55
--- NOTE | 2023-08-04 17:22 | CT_ITS ---
PROCEDURE INFORMATION: Exam: CTA Chest With Contrast Exam date and time: 08/04/2023 6:17 PM Age: 67 years old Clinical indication: Pain; Right-sided; Additional info: Smoker, severe R chest and thoracic cage pain TECHNIQUE: Imaging protocol: Computed tomographic angiography of the chest with contrast. Exam focused on the arteries. 3D rendering (Not supervised by radiologist): MIP and/or 3D reconstructed images were created by the technologist. Radiation optimization: All CT scans at this facility use at least one of these dose optimization techniques: automated exposure control; mA and/or kV adjustment per patient size (includes targeted exams where dose is matched to clinical indication); or iterative reconstruction. Contrast material: ISOVUE; Contrast volume: 70 ml; Contrast route: INTRAVENOUS (IV); COMPARISON: CT LUNG SCREENING 04/09/2023 3:15 PM FINDINGS: Pulmonary arteries: Normal. No pulmonary emboli. Aorta: Unremarkable. No aortic aneurysm. No aortic dissection. Lungs: Biapical scarring. Left apical spiculated lesion 6.8 mm unchanged from previous study. Calcified granuloma right lower lobe. No consolidation. No masses. Pleural spaces: Unremarkable. No pneumothorax. No pleural effusion. Heart: Unremarkable. No cardiomegaly. No pericardial effusion. Lymph nodes: Unremarkable. No enlarged lymph nodes. Bones/joints: Unremarkable. No acute fracture. Soft tissues: Unremarkable. IMPRESSION: No acute findings. For patients at low risk (minimal or absent history of smoking and of other known risk factors), recommend CT Chest at 6-12 months, then consider CT Chest at 18-24 months. For patients at high risk (history of smoking or of other known risk factors), recommend CT Chest at 6-12 months, then CT Chest at 18-24 months. (Reference: Rosalia) References: Rosalia Talamantes et al. Guidelines for Management of Incidental Pulmonary Nodules Detected on CT Images: From the Fleischner Society 2017. Radiology. 2017;284(1):228-243.
--- NOTE | 2023-08-04 17:23 | [facility].EDCP ---
Discharge Plan Disposition Patient Disposition: Home, Self-Care Chief Complaint: Shortness of Breath/Dyspnea Prescriptions Prescriptions: No Action cyclobenzaprine 10 mg tablet 10 mg PO HS budesonide 3 mg capsule,delayed,extend.release 3 mg PO TID PRN Patient Comments: TAKE ONE CAPSULE BY MOUTH EVERY DAY cholecalciferol (vitamin D3) 125 mcg (5,000 unit) capsule 125 mcg PO DAILY cyanocobalamin (vitamin B-12) 1,000 mcg capsule 1,000 mcg PO DAILY coenzyme Q10 400 mg capsule 400 mg PO DAILY albuterol sulfate 90 mcg/actuation HFA aerosol inhaler 2 puff inhalation Q6H PRN (Reason: shortness of breath or wheezing) Qty: 8.5 2RF sucralfate 1 gram tablet See Rx Instructions .ROUTE .COMPLEX Patient Comments: TAKE ONE TABLET BY MOUTH FOUR TIMES DAILY Rx Instructions: TAKE ONE TABLET BY MOUTH FOUR TIMES DAILY famotidine 40 mg tablet 40 mg PO DAILY Patient Comments: TAKE ONE TABLET BY MOUTH EVERY DAY AT NIGHT colestipol 1 gram tablet 2 g PO DAILY azithromycin [azithromycin] 250 mg tablet 250 mg PO DIRECTED Qty: 6 0RF Rx Instructions: Take two (2) tablets on day #1, then one (1) tablet day #2 thru #5 Referrals Follow up/Referrals: Loy Cruz MD [Primary Care Provider] - See instructions Activity Restrictions/Add. Instructions Additional Instructions/Restrictions: At this time it was felt you are safe to be discharged home. If new or worsening symptoms please do not hesitate to return the emergency department. If symptoms persist please follow-up with your family doctor as you are able. Clinical Impressions Clinical Impression: Chest pain, pleuritic Discharge ED Provider: Cyril Altamirano HPI General Chief Complaint: Shortness of Breath/Dyspnea Stated Complaint: SOA Time Seen by Provider: 08/04/23 16:38 Mode of Arrival: Ambulatory Source of Information: Patient Limitations: No Limitations Description of Symptoms (Recalled from ER Triage Doc. by RN): PT WOKE THIS AM WITH WORSENING RIGHT SIDED RIB PAIN. REPORTS INJURY TO SITE ABOUT 3 MONTHS AGO. REPORTS SHORTNESS OF BREATH History of Present Illness HPI narrative: Patient is a 67-year-old female past medical history of emphysema who presents emergency department for evaluation of right sided chest pain. She has a remote injury to the site many months ago. She awoke with severe right lateral thoracic and inferior costal cage pain that is worse with inspiration. Patient has an associated cough and drainage which is not significantly worse from her baseline. No substernal chest pain. No other acute complaints at this time. Related Data Home Medications Medication Instructions Recorded Confirmed cyclobenzaprine 10 mg tablet 10 mg PO HS 12/04/22 07/24/23 budesonide 3 mg 3 mg PO TID PRN 03/21/23 07/17/23 capsule,delayed,extended release cholecalciferol (vitamin D3) 125 125 mcg PO DAILY 03/21/23 07/17/23 mcg (5,000 unit) capsule coenzyme Q10 400 mg capsule 400 mg PO DAILY 03/21/23 07/17/23 cyanocobalamin (vitamin B-12) 1,000 mcg PO DAILY 03/21/23 07/17/23 1,000 mcg capsule colestipol 1 gram tablet 2 g PO DAILY 07/24/23 07/24/23 famotidine 40 mg tablet 40 mg PO DAILY 07/24/23 07/24/23 sucralfate 1 gram tablet See Rx Instructions .Route .COMPLEX 07/24/23 07/24/23 Previous Rx's Medication Instructions Recorded albuterol sulfate 90 mcg/actuation 2 puff inhalation Q6H PRN 06/06/23 aerosol inhaler shortness of breath or wheezing #8.5 grams azithromycin 250 mg tablet 250 mg PO DIRECTED #6 tabs 07/24/23 Allergies Allergy/AdvReac Type Severity Reaction Status Date / Time Sulfa (Sulfonamide Allergy Mild rash Verified 07/24/23 17:19 Antibiotics) methocarbamol [From Robaxin] Allergy Verified 07/24/23 17:19 Penicillins Allergy Verified 07/24/23 17:19 doxycycline AdvReac Hypertensio Verified 07/24/23 17:19 n methylprednisolone AdvReac Verified 07/24/23 17:19 medrol dos jenae AdvReac Uncoded 06/06/23 09:32 [facility] Disclaimer: The information contained in this section may have been updated after the patient was seen, as this information can be updated by other users. 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) Father Mother Sister Coronary artery disease Father Hyperlipidemia Son Cancer Mother Sister Sister Hypertension Sister 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 , 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) Smoking Status: Current every day smoker tobacco type: cigarettes packs per day: 1 years smoked: 30 alcohol intake: never current occupational status: retired Travel in the last 8 weeks: None caffeine: Yes ROS Obtained: Yes Systems reviewed as appropriate & no additional complaints except as documented Physical Exam General General appearance: alert and in no apparent distress Head Head exam: atraumatic and normocephalic Eye Eye exam: Present PERRL and EOMI ENT ENT exam: Present mucous membranes moist Neck Neck exam: Present normal inspection Chest Chest inspection: Present normal inspection, symmetric chest wall rise and other (Tenderness over the right inferior lateral thoracic cage, no overlying bruising or rashes.) Respiratory Respiratory exam: Present normal lung sounds bilaterally; Absent respiratory distress Cardiovascular Cardiovascular exam: Present regular rate and normal rhythm Abdominal Exam Abdominal exam: Present soft; Absent tenderness Extremities Exam Extremities exam: Present normal inspection Neurological Exam Neurological exam: Present alert Psychiatric Psychiatric exam: Present normal affect Skin Skin exam: Present warm and dry HEART Score HEART Score HEART Score assessment performed?: Yes History (anamnesis): Slightly suspicious ECG: Normal Age: >65 years Risk factors: 1-2 risk factors Troponin: </= normal limit HEART Score: 3 Critical Care Critical Care Time Critical Care Time: No Medical Decision Making Bairon Inquiry Pt receiving controlled substance: No Vital Signs Vital Signs: 08/04/23 16:20 08/04/23 16:30 08/04/23 17:00 Temperature 97.9 F Temperature Source Oral Pulse Rate 89 81 Pulse Rate [Apical] 82 Respiratory Rate 18 21 21 Blood Pressure 134/79 127/80 Blood Pressure [Right Arm] 134/79 Blood Pressure Mean [Right Arm] 97 Blood Pressure Source [Right Arm] Automatic Cuff Blood Pressure Position [Right Arm] Sitting 02 Sat by Pulse Oximetry 98 99 98 Oxygen Delivery Method Room Air Room Air Room Air 08/04/23 17:30 08/04/23 18:00 08/04/23 18:30 Temperature Temperature Source Pulse Rate 74 78 80 Pulse Rate [Apical] Respiratory Rate 24 21 18 Blood Pressure 121/78 116/75 127/74 Blood Pressure [Right Arm] Blood Pressure Mean [Right Arm] Blood Pressure Source [Right Arm] Blood Pressure Position [Right Arm] 02 Sat by Pulse Oximetry 97 96 98 Oxygen Delivery Method Room Air Room Air Room Air Lab Data Labs: Lab Results 08/04/23 16:30: WBC 11.4 H, RBC 4.58, Hgb 14.1, Hct 41.7, MCV 91.0, MCH 30.9, MCHC 33.9, RDW 13.9, Plt Count 320, MPV 7.9, Neut % (Auto) 66.2, Lymph % (Auto) 25.3, [place] % (Auto) 6.5, Eos % (Auto) 1.5, Baso % (Auto) 0.6, Neut # (Auto) 7.6, Lymph # (Auto) 2.9, [place] # (Auto) 0.7, Eos # (Auto) 0.2, Baso # (Auto) 0.1, Sodium 137, Potassium 3.6, Chloride 103, Carbon Dioxide 29, Anion Gap 8.6, BUN 11, Creatinine 0.90, Estimated Creat Clear 34, Estimated GFR 63, Est GFR ( Amer) 76, Glucose 133 H, Calcium 8.7, Total Bilirubin 0.4, AST 31, ALT 18, Alkaline Phosphatase 69, Troponin I < 0.01, Total Protein 7.5, Albumin 4.0, Globulin 3.5 H, Albumin/Globulin Ratio 1.1 08/04/23 17:35: SARS-CoV-2 (PCR) Not detected, Influenza A Untype (PCR) Not detected, Influenza Type B (PCR) Not detected 08/04/23 16:30 08/04/23 16:30 Response Orders (Tests/Meds): ED MEDICATIONS Discontinued Medications Generic Name Dose Route Start Last Admin Trade Name Freq PRN Reason Stop Dose Admin Acetaminophen 1,000 mg 08/04/23 17:22 08/04/23 17:32 Acetaminophen 1,000mg/100ml Vial IV 08/04/23 17:23 1,000 mg ONCE ONE Administration Iopamidol 70 ml 08/04/23 18:17 08/04/23 18:21 Iopamidol-370 (76%);100ml Bottle IV 08/04/23 18:18 70 ml ONCE ONE Administration Ketorolac Tromethamine 30 mg 08/04/23 17:22 08/04/23 17:32 Ketorolac 30mg/Ml Vial IV 08/04/23 17:23 30 mg ONCE ONE Administration Sodium Chloride 10 ml 08/04/23 18:17 08/04/23 18:21 Sodium Chloride 0.9% 10ml Syr (Rad Only) IV 08/04/23 18:18 10 ml ONCE ONE Administration Sodium Chloride 50 ml 08/04/23 18:17 08/04/23 18:21 0.9 % Sodium Chloride 50 Ml Vial IV 08/04/23 18:18 50 ml ONCE ONE Administration ORDERS Category Date Time Status CT angio chest PE protocol Stat Cat Scan 08/04/23 17:22 Completed CBC w/Auto Diff [Complete Blood Count Auto Diff] Stat Lab 08/04/23 16:30 Completed CMP [Comprehensive Metabolic Panel] Stat Lab 08/04/23 16:30 Completed Rapid PCR Covid and Flu A/B Stat Lab 08/04/23 17:35 Completed Trop I [Troponin I] Stat Lab 08/04/23 16:30 Completed Troponin I Q3H Lab 08/04/23 20:30 Ordered Troponin I Q3H Lab 08/04/23 23:30 Ordered ECG Data Tracing #1: ECG Narrative: Independently interpreted by me, rate is 84, rhythm is regular, no ST elevation in anatomical contiguous leads, QTc 434 MDM Narrative Medical Decision Narrative: In summary patient is a 67-year-old female past medical history described above presents emergency department for evaluation of chest pain. Patient is hemodynamically stable nontoxic-appearing upon arrival, afebrile. Differential diagnosis includes pulmonary embolism, malignancy, intercostal muscle strain, rib fracture, atypical ACS, among others. Workup will be conducted with hematologic labs, CT chest PE protocol, viral swab. Initial interventions include IV Tylenol, Toradol. Workup reviewed by me, hematologic labs are nonactionable, initial troponin below detectable limit. Viral swab negative. CT imaging shows no acute findings, left apical spiculated lesion 6.8 mm unchanged from previous study. Upon repeat evaluation patient was resting comfortably in bed, improved pain. Given this patient is appropriate for outpatient management at this time we will follow-up on an outpatient basis and was given return precautions.
[2023-08-04 17:29] LABS: Basophils # 0.1 K/mm3 (0-0.2); Basophils % 0.6 % (0.1-2.0); Eosinophils # 0.2 K/mm3 (0.0-0.4); Eosinophils % 1.5 % (0.1-12.0); Hematocrit 41.7 % (37.0-47.0); Hemoglobin 14.1 g/dL (12.2-16.2); Lymphocytes # 2.9 K/mm3 (0.7-4.5); Lymphocytes % 25.3 % (10-50); Mean Corpuscular HGB Conc 33.9 g/dL (31.8-35.4); Mean Corpuscular Hemoglobin 30.9 pg (27.0-31.2); Mean Platelet Volume 7.9 fl (7.4-10.4); Monocytes # 0.7 K/mm3 (0.1-1.0); Monocytes % 6.5 % (1.7-9.3); Neutrophils # 7.6 K/mm3 (1.8-7.8); Neutrophils % 66.2 % (37.0-80.0); Platelet Count 320 K/mm3 (142-424); Red Blood Count 4.58 M/mm3 (4.20-5.40); Red Cell Distribution Width 13.9 % (11.5-17.5); White Blood Count 11.4 K/mm3 (4.8-10.8)
[2023-08-04 17:32] LABS: Chloride 103 mmol/L (98-107); Potassium 3.6 mmoL/L (3.5-5.1); Sodium 137 mmol/L (136-145)
[2023-08-04] MEDS: ACETAMINOPHEN 1,000MG/100ML VIAL 1000 MG IV (17:32)
[2023-08-04] MEDS: KETOROLAC 30MG/ML VIAL 30 MG IV (17:32)
[2023-08-04 17:35] LABS: Alanine Aminotransferase 18 U/L (12-78); Albumin/Globulin Ratio 1.1 (1.1-1.8); Alkaline Phosphatase 69 U/L (38-126); Anion Gap 8.6 mEq/L (5-15); Aspartate Amino Transferase 31 U/L (14-36); Bilirubin,Total 0.4 mg/dl (0.2-1.3); Blood Urea Nitrogen 11 mg/dl (7-17); Carbon Dioxide 29 mmol/L (22.0-30.0); Creatinine Clearance Estimated 34 mL/min (50-200); Estimated Glomerular Filt Rate 63 ml/min (>60); GFR (African American) 76 ML/MIN (>60); Globulin 3.5 g/dL (1.3-3.2); Total Protein,Serum 7.5 g/dl (6.3-8.2)
[2023-08-04 17:36] LABS: Calcium 8.7 mg/dl (8.4-10.2); Glucose 133 mg/dl (74-100)
[2023-08-04 17:49] LABS: Troponin I < 0.01 ng/ml (0.00-0.034)
[2023-08-04 17:51] LABS: Coronavirus 19, PCR Not Detected (NotDetected); Influenza B, PCR Not Detected (NotDetected)
[2023-08-04] MEDS: 0.9 % SODIUM CHLORIDE 50 ML VIAL IV (18:21)
[2023-08-04] MEDS: IOPAMIDOL-370 (76%);100ML BOTTLE 70 ML IV (18:21)
[2023-08-04] MEDS: SODIUM CHLORIDE 0.9% 10ML SYR (RAD ONLY) 10 ML IV (18:21)
--- NOTE | 2023-08-04 18:25 | PC.NURSE ---
PT RETURNED FROM CT
[2023-08-04 18:26] LABS: Influenza A, PCR Not Detected (NotDetected)
== END 2023-08-04 19:58 | disposition home or self-care (01) ==
PROVIDERS: Emergency Provider Emergency Medicine; PCP Family Medicine
DX: R09.1 Pleurisy (principal); R06.02 Shortness of breath; J44.9 Chronic obstructive pulmonary disease, unspecified; F17.210 Nicotine dependence, cigarettes, uncomplicated
CPT/HCPCS: 71275; 80053; 84484; 85025; 87636; 93005; 96374; 96375; 99285; J0131; Q9967

== ENCOUNTER 2023-10-08 12:40 | Outpatient (CLI) | payer MEDICARE, SELFPAY ==
--- NOTE | 2023-10-08 12:40 | CT_ITS ---
FINAL REPORT TECHNIQUE: Multiple axial CT sections were performed from the foramen magnum to the vertex. Coronal and sagittal reformatted images were also obtained. Precontrast and postcontrast injection images were obtained. This study was performed with technique to keep radiation doses as low as reasonably achievable, (ALARA). Individualized dose reduction techniques using automated exposure control or adjustment of mA and/or kV according to the patient size were employed. CLINICAL HISTORY: lung mass RUL COMPARISON: 08/04/2023 FINDINGS: CT CHEST WITH AND WITHOUT CONTRAST: Moderate to severe changes of emphysema remain present as well as bilateral apical scarring. Several small mediastinal nodes remain present as well. Mild coronary artery calcifications are noted. There is a 6 mm right anterior pulmonary nodule, stable since the prior exam. There is a focal opacity in the left lateral upper lobe, 15 mm in size, also stable. There are several other small right upper lobe 5 mm nodules, stable. Calcified granulomas are present in the right lower lobe. No new infiltrates or effusions are identified. There is ectasia present in the upper abdominal aorta. IMPRESSION: Multifocal upper lobe nodule send opacities, stable since the prior exam. Would recommend a 6-month follow-up CT without contrast to reevaluate. Moderate to severe changes of emphysema and bilateral apical scarring remain present. Reviewed, Interpreted and Dictated by Braydon Watters III, MD Transcribed by Rhina Hall Authenticated and [facility]
[2023-10-08 13:05] LABS: Blood Urea Nitrogen 15 mg/dl (7-17); Estimated Glomerular Filt Rate 63 ml/min (>60); GFR (African American) 76 ML/MIN (>60)
[2023-10-08] MEDS: IOPAMIDOL-370 (76%);100ML BOTTLE 75 ML IV (13:23)
== END 2023-10-08 23:59 ==
LOC: RAD 12:40
PROVIDERS: PCP Family Medicine; Visit Provider Nurse Practitioner Family
DX: R91.8 Other nonspecific abnormal finding of lung field (principal)
CPT/HCPCS: 36415; 71270; 82565; 84520; Q9967

== ENCOUNTER 2024-01-29 10:40 | Outpatient (CLI) | payer MEDICARE, SELFPAY ==
[2024-01-29 18:19] LABS: Basophils # 0.1 K/mm3 (0-0.2); Basophils % 0.9 % (0.1-2.0); Eosinophils # 0.2 K/mm3 (0.0-0.4); Eosinophils % 2.7 % (0.1-12.0); Hematocrit 44.9 % (37.0-47.0); Hemoglobin 13.8 g/dL (12.2-16.2); Lymphocytes # 2.1 K/mm3 (0.7-4.5); Lymphocytes % 24.8 % (10-50); Mean Corpuscular HGB Conc 30.7 g/dL (31.8-35.4); Mean Corpuscular Hemoglobin 29.5 pg (27.0-31.2); Mean Platelet Volume 8.5 fl (7.4-10.4); Monocytes # 0.7 K/mm3 (0.1-1.0); Monocytes % 8.4 % (1.7-9.3); Neutrophils # 5.3 K/mm3 (1.8-7.8); Neutrophils % 63.1 % (37.0-80.0); Platelet Count 319 K/mm3 (142-424); Red Blood Count 4.68 M/mm3 (4.20-5.40); Red Cell Distribution Width 14.2 % (11.5-17.5); White Blood Count 8.4 K/mm3 (4.8-10.8)
== END 2024-01-29 23:59 | disposition home or self-care (01) ==
LOC: LAB.DROPOF 01-30 09:09
PROVIDERS: PCP Family Medicine; Visit Provider Family Medicine
DX: R50.9 Fever, unspecified (principal); R69 Illness, unspecified; Z72.0 Tobacco use; J44.9 Chronic obstructive pulmonary disease, unspecified
CPT/HCPCS: 85025

== ENCOUNTER 2024-03-17 14:22 | Outpatient (CLI) | payer MEDICARE, SELFPAY ==
--- NOTE | 2024-03-17 14:22 | CT_ITS ---
FINAL REPORT TECHNIQUE: Axial images through the chest were performed by computed tomography. This study was performed with techniques to keep radiation doses as low as reasonably achievable, (ALARA). Individualized dose reduction techniques using automated exposure control or adjustment of mA and/or kV according to the patient's size were employed. CLINICAL HISTORY: lung nodules COMPARISON: 10/08/2023 FINDINGS: CT CHEST WITHOUT CONTRAST: Calcified right hilar nodes are present. There is dense biapical pleural and parenchymal scarring. Moderate to severe changes of centrilobular emphysema are present. There is an irregular density in the peripheral left upper lobe that measures 15 mm in diameter, best seen on image #59 of series 3, stable. There are multiple right upper lobe small nodular opacities present, with a 3 mm anterior right upper lobe nodule seen on image #48 of series 3. There is a 3 mm lateral right upper lobe nodule seen on image #51 of series 3. There is a 6 mm nodule present on image #47 of series 3. All of the nodules are stable. There is also a 5 mm anterior right apical nodule seen on image #32 of series 3, also stable. The heart size is normal. There is no pericardial or pleural effusion. Limited images of the upper abdomen are unremarkable. IMPRESSION: Multiple pulmonary nodules are present as described above, all of which appear stable since the prior CT of October 07. Recommend 12-month follow-up CT of the chest for further evaluation. Moderate to severe changes of centrilobular emphysema are present along with biapical pleural and parenchymal scarring. Reviewed, Interpreted and Dictated by Andrew Moore MD Transcribed by Rhina Hall Authenticated and [facility]
== END 2024-03-17 23:59 | disposition home or self-care (01) ==
LOC: RAD 14:22
PROVIDERS: PCP Family Medicine; Visit Provider Family Medicine
DX: R91.8 Other nonspecific abnormal finding of lung field (principal)
CPT/HCPCS: 71250

== ENCOUNTER 2024-04-14 12:49 | Outpatient (CLI) | payer MEDICARE, SELFPAY ==
[2024-04-14 12:53] LABS: Adenovirus F 40/41, stool Not Detected (NotDetected); Astrovirus Not Detected (NotDetected); Campylobacter Not Detected (NotDetected); Clostridium Difficile A/B, PCR Not Detected (NotDetected); Cryptosporidium Not Detected (NotDetected); Cyclospora Cayetanesis Not Detected (NotDetected); Entamoeba histolytica Not Detected (NotDetected); Enteroaggregative E coli Not Detected (NotDetected); Enteropathogenic E coli Not Detected (NotDetected); Enterotoxigenic E coli Not Detected (NotDetected); Giardia lamblia Not Detected (NotDetected); Norovirus Not Detected (NotDetected); Plesimonas Shigalloides, PCR Not Detected (NotDetected); Rotavirus A Not Detected (NotDetected); Salmonella, PCR Not Detected (NotDetected); Sapovirus Not Detected (NotDetected); Shiga-like toxin E coli Not Detected (NotDetected); Shigella Enterovasive E coli Not Detected (NotDetected); Vibrio Cholerae Not Detected (NotDetected); Vibrio, PCR Not Detected (NotDetected); Yersinia Entercolitica, PCR Not Detected (NotDetected)
== END 2024-04-14 23:59 | disposition home or self-care (01) ==
LOC: LAB 12:50
PROVIDERS: PCP Family Medicine; Visit Provider Family Medicine
DX: A04.72 Enterocolitis due to Clostridium difficile, not specified as recurrent (principal)
CPT/HCPCS: 87506

== ENCOUNTER 2024-06-04 16:51 | Emergency (ER) | payer MEDICARE, SELFPAY ==
[2024-06-04 17:11] VITALS: BP 139/83; PULSE 91; RESP 18; TEMP 36.8; O2SAT 97; BMI 16.5
--- NOTE | 2024-06-04 17:21 | ED_ITS ---
Discharge Plan Disposition Patient Disposition: Home, Self-Care Condition: Good Prescriptions Prescriptions: No Action albuterol sulfate 90 mcg/actuation HFA aerosol inhaler 2 puff inhalation Q6H PRN (Reason: shortness of breath or wheezing) Qty: 8.5 12RF cyclobenzaprine 10 mg tablet 10 mg PO .bedtime budesonide 3 mg capsule,delayed,extend.release 9 mg PO DAILY Qty: 90 1RF Referrals Follow up/Referrals: Loy Cruz MD [Primary Care Provider] - See instructions Activity Restrictions/Add. Instructions Additional Instructions/Restrictions: *Monitor Temp, Over the counter Motrin or Tylenol as directed/as needed Tylenol every 4 hours and Motrin every 6 hours (as long as your family doctor has told you that you can take it) for fever or pain. and straight to ER if unable to lower temp less than 101.0 after medication given *Warm salt water gargles may help to soothe the throat *Throat Lozenges? *Warm fluids like tea with honey may help to soothe the throat? *Sleep elevated *Humidifier/Vaporizer Follow up IMMEDIATELY for new or worsening symptoms or no Noticeable i mprovement over the next 48-72 hours. 911 for difficulty breathing or swallowing You were tested for today for Upper Respiratory Panel with COVID19 your test result should be back in the next 24 hours, you may check your results on the [facility] Clinical Impressions Clinical Impression: Viral upper respiratory infection Instructions Patient Instructions: Cough, DI for Fever (Symptom) -- Adult, DI for Nasal Congestion Print Language Print Language: [place] Discharge ED Provider: Lizette Krishnan [facility] [place] HPI General Stated complaint: cough,earache Mode of Arrival: Ambulatory Source of Information: Patient Time Seen by Provider: 06/04/24 17:21 Description of Symptoms (Recalled from Triage Doc. by RN): ACHES, FEVER, COUGH, RIVAS HEENT Symptoms (Recalled from RN notes): Yes Resp Symptoms (Recalled from RN notes): Yes Skin Symptoms (Recalled from RN notes): No MS Symptoms (Recalled from RN notes): No Functional Status (Recalled from RN notes): WNL History of Present Illness Provider Complaint: Patient states that she started feeling bad on Saturday evening and it hit her quick States that she was having body aches, chills, nasal congestion, and cough States today she was still not feeling any better worried she may have flu Related Data Home Medications ?Medication ?Instructions ?Recorded ?Confirmed cyclobenzaprine 10 mg tablet 10 mg PO .bedtime 05/07/24 06/04/24 Previous Rx's ?Medication ?Instructions ?Recorded albuterol sulfate 90 mcg/actuation 2 puff inhalation Q6H PRN 01/29/24 aerosol inhaler shortness of breath or wheezing #8.5 grams budesonide 3 mg 9 mg (3 x 3 mg) PO DAILY #90 ea 05/07/24 capsule,delayed,extended release Allergies Allergy/AdvReac Type Severity Reaction Status Date / Time Sulfa (Sulfonamide Allergy Mild rash Verified 05/07/24 11:27 Antibiotics) methocarbamol (From Robaxin) Allergy Unknown Verified 05/07/24 11:27 allergy reaction Penicillins Allergy Unknown Verified 05/07/24 11:27 allergy reaction doxycycline AdvReac Hypertensio Verified 05/07/24 11:27 n methylprednisolone AdvReac Unknown Verified 05/07/24 11:27 allergy reaction Worker's Comp Is this a Worker's Comp case?: No [facility] Disclaimer: The information contained in this section may have been updated after the patient was seen, as this information can be updated by other users. 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 Strep sore throat Otitis media of right ear Sinusitis Low back pain Muscle spasm Back pain Upper respiratory infection Acute viral syndrome Bronchitis Dyspnea Allergy to sulfa drugs Itching Migraine Otitis media Viral syndrome COPD exacerbation Exposure to COVID-19 virus Viral syndrome Syncope and collapse Abdominal pain Fatigue COPD exacerbation Chest pain Lumbar radiculopathy Viral upper respiratory illness Skin problem Surgical History Hx of fusion of cervical spine H/O tubal ligation Family History Father Coronary artery disease Mother Cancer breast Sister Cancer gallbladder Sister Cancer breast Hypertension Son Hyperlipidemia 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 Smoking Status: Current every day smoker tobacco type: cigarettes packs per day: 1 years smoked: 30 alcohol intake: never current occupational status: retired Travel in the last 8 weeks: None caffeine: Yes ROS Obtained: Yes All systems reviewed & no additional complaints except as documented and Yes Systems reviewed as appropriate & no additional complaints except as documented Constitutional Constitutional: Reports system reviewed and no additional complaints, except as documented, Reports as per HPI, Reports body ache, Reports chills and Reports fever(s) ENT Ears, Nose, Mouth, and Throat: Reports system reviewed and no additional complaints, except as documented, Reports as per HPI, Reports nasal congestion and Reports nasal discharge Cardiovascular Cardiovascular: Reports system reviewed and no additional complaints, except as documented and Reports as per HPI Respiratory Respiratory: Reports system reviewed and no additional complaints, except as documented, Reports as per HPI and Reports cough Gastrointestinal Gastrointestingal: Reports system reviewed and no additional complaints, except as documented and as per HPI Physical Exam General General appearance: alert and in no apparent distress ENT ENT exam: Present mucous membranes moist and TM's normal bilaterally Expanded ENT Exam Nose exam: Present other (clear drainage) Throat exam: Present normal inspection Respiratory Respiratory exam: Present normal lung sounds bilaterally; Absent respiratory distress or wheezes Cardiovascular Cardiovascular exam: Present regular rate, normal rhythm and normal heart sounds Neurological Exam Neurological exam: Present alert, oriented X3 and normal gait Medical Decision Making Medical Records Screening: Per USPSTF and CDC recommendations, given the prevalence of disease in our region, it is our hospital?s policy to screen for HIV and viral Hepatitis for all patients aged 18 and over and those with ongoing risk factors. [place] Inquiry Pt receiving controlled substance: No [place] was queried for this patient: No Vital Signs: 06/04/24 17:11 Temperature 98.3 F Temperature Source Oral Pulse Rate [Left Radial] 91 H Respiratory Rate 18 Blood Pressure [Left Arm] 139/83 Blood Pressure Mean [Left Arm] 101 02 Sat by Pulse Oximetry 97 Lab Data Lab results reviewed: Yes I reviewed the patient's lab results.
[2024-06-04 17:35] LABS: UTC Influenza A Antigen Negative (Negative); UTC Influenza B Antigen Negative (Negative)
[2024-06-04 17:46] VITALS: BP 139/83; PULSE 91; RESP 18; TEMP 36.8
== END 2024-06-04 17:48 | disposition home or self-care (01) ==
PROVIDERS: Emergency Provider Nurse Practitioner; PCP Family Medicine
DX: J06.9 Acute upper respiratory infection, unspecified (principal)
CPT/HCPCS: 87804; 99213; G0381

== ENCOUNTER 2024-07-17 10:26 | Emergency (ER) | payer MEDICARE, SELFPAY ==
[2024-07-17 12:00] VITALS: BP 144/85; PULSE 85; RESP 22; TEMP 36.7; O2SAT 97; BMI 17.6
--- NOTE | 2024-07-17 12:19 | ED_ITS ---
Discharge Plan Disposition Patient Disposition: Home, Self-Care Condition: Good Prescriptions Prescriptions: New doxycycline hyclate 100 mg capsule 100 mg PO BID Qty: 20 0RF No Action albuterol sulfate 90 mcg/actuation HFA aerosol inhaler 2 puff inhalation Q6H PRN (Reason: shortness of breath or wheezing) Qty: 8.5 12RF cyclobenzaprine 10 mg tablet 10 mg PO .bedtime budesonide 3 mg capsule,delayed,extend.release 9 mg PO DAILY Qty: 90 1RF Referrals Follow up/Referrals: Loy Cruz MD [Primary Care Provider] - See instructions Activity Restrictions/Add. Instructions Additional Instructions/Restrictions: Take medication as prescribed Follow up with your Family Doctor Return if needed Straight to ER if any life threatening symptoms Instructions Patient Instructions: How to Remove a Tick, Doxycycline Print Language Print Language: [place] Discharge ED Provider: Lizette Krishnan [facility] [place] HPI General Stated complaint: tick bite, cough, headache Mode of Arrival: Ambulatory Source of Information: Patient Limitations: No Limitations Time Seen by Provider: 07/17/24 12:20 Description of Symptoms (Recalled from Triage Doc. by RN): PATIENT C/O TICK BITE TO RIGHT UPPER ARM THAT SHE NOTICED THIS MORNING. PATIENT ALSO C/O COUGH AND CONGESTION HEENT Symptoms (Recalled from RN notes): No Resp Symptoms (Recalled from RN notes): Yes Skin Symptoms (Recalled from RN notes): Yes MS Symptoms (Recalled from RN notes): No Functional Status (Recalled from RN notes): WNL History of Present Illness Provider Complaint: Patient states that she has been having cough and congestion also states that she has a tick bite on her right upper arm not sure how long the tic was there but now it is red and irritated Related Data Home Medications ?Medication ?Instructions ?Recorded ?Confirmed cyclobenzaprine 10 mg tablet 10 mg PO .bedtime 05/07/24 07/17/24 Previous Rx's ?Medication ?Instructions ?Recorded albuterol sulfate 90 mcg/actuation 2 puff inhalation Q6H PRN 01/29/24 aerosol inhaler shortness of breath or wheezing #8.5 grams budesonide 3 mg 9 mg (3 x 3 mg) PO DAILY #90 ea 05/07/24 capsule,delayed,extended release doxycycline hyclate 100 mg capsule 100 mg PO BID #20 caps 07/17/24 Allergies Allergy/AdvReac Type Severity Reaction Status Date / Time Sulfa (Sulfonamide Allergy Mild rash Verified 05/07/24 11:27 Antibiotics) methocarbamol (From Robaxin) Allergy Unknown Verified 05/07/24 11:27 allergy reaction Penicillins Allergy Unknown Verified 05/07/24 11:27 allergy reaction methylprednisolone AdvReac Unknown Verified 05/07/24 11:27 allergy reaction Worker's Comp Is this a Worker's Comp case?: No [facility] Disclaimer: The information contained in this section may have been updated after the patient was seen, as this information can be updated by other users. 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 Strep sore throat Otitis media of right ear Sinusitis Low back pain Muscle spasm Back pain Upper respiratory infection Acute viral syndrome Bronchitis Dyspnea Allergy to sulfa drugs Itching Migraine Otitis media Viral syndrome COPD exacerbation Exposure to COVID-19 virus Viral syndrome Syncope and collapse Abdominal pain Fatigue COPD exacerbation Chest pain Lumbar radiculopathy Viral upper respiratory illness Skin problem Surgical History Hx of fusion of cervical spine H/O tubal ligation Family History Father Coronary artery disease Mother Cancer breast Sister Cancer gallbladder Sister Cancer breast Hypertension Son Hyperlipidemia 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 Smoking Status: Current every day smoker tobacco type: cigarettes packs per day: 1 years smoked: 30 alcohol intake: never current occupational status: retired Travel in the last 8 weeks: None caffeine: Yes Have you lived/traveled outside [place] in past 30 days?: No Contact w/someone who lives/traveled outside [place] past 30 days?: No Exposure to someone with infectious disease in past 14 days?: No Do you have a fever (greater than 100.4 F or 38 C)?: No Have you tested positive for COVID-19: No Exposed to someone with COVID-19 in past 14 days?: No Do you have a sore throat?: No Do you have a cough?: Yes Do you have any weakness?: No Do you have any diarrhea?: No Are you experiencing any unusual bleeding?: No Do you have any muscle aches/pain?: No Do you have any abdominal pain?: No Are you experiencing loss of taste or smell?: No ROS Obtained: Yes All systems reviewed & no additional complaints except as documented and Yes Systems reviewed as appropriate & no additional complaints except as documented Constitutional Constitutional: Reports system reviewed and no additional complaints, except as documented and Reports as per HPI ENT Ears, Nose, Mouth, and Throat: Reports system reviewed and no additional complaints, except as documented and Reports as per HPI Cardiovascular Cardiovascular: Reports system reviewed and no additional complaints, except as documented and Reports as per HPI Respiratory Respiratory: Reports system reviewed and no additional complaints, except as documented, Reports as per HPI, Reports chest congestion and Reports cough Gastrointestinal Gastrointestingal: Reports system reviewed and no additional complaints, except as documented and as per HPI Integumentary/Breasts Skin/Breast: Reports system reviewed and no additional complaints, except as documented, Reports as per HPI and Reports other (tick bite on right upper arm) Physical Exam General General appearance: alert and in no apparent distress ENT ENT exam: Present normal exam, normal oropharynx, mucous membranes moist and TM's normal bilaterally Respiratory Respiratory exam: Present normal lung sounds bilaterally; Absent respiratory distress or wheezes Cardiovascular Cardiovascular exam: Present regular rate, normal rhythm and normal heart sounds Neurological Exam Neurological exam: Present alert, oriented X3 and normal gait Skin Skin exam: Present other (redness from tick bite right upper arm) Medical Decision Making Medical Records Screening: Per USPSTF and CDC recommendations, given the prevalence of disease in our region, it is our hospital?s policy to screen for HIV and viral Hepatitis for all patients aged 18 and over and those with ongoing risk factors. [place] Inquiry Pt receiving controlled substance: No [place] was queried for this patient: No Vital Signs: 07/17/24 12:00 Temperature 98.0 F Temperature Source Oral Pulse Rate [Right Brachial] 85 Respiratory Rate 22 Blood Pressure [Right Arm] 144/85 H Blood Pressure Mean [Right Arm] 104 Blood Pressure Source [Right Arm] Automatic Cuff Blood Pressure Position [Right Arm] Sitting 02 Sat by Pulse Oximetry 97 Oxygen Delivery Method Room Air Medical Decision Narrative: Patient states that she has taken Doxycycline before without any complications or reactions
[2024-07-17 12:32] VITALS: BP 144/85; PULSE 85; RESP 22; TEMP 36.7; O2SAT 97
== END 2024-07-17 12:35 | disposition home or self-care (01) ==
PROVIDERS: Emergency Provider Nurse Practitioner; PCP Family Medicine
DX: S40.861A Insect bite (nonvenomous) of right upper arm, initial encounter (principal); W57.XXXA Bitten or stung by nonvenomous insect and other nonvenomous arthropods, initial encounter
CPT/HCPCS: 99213; G0381

== ENCOUNTER 2024-07-25 17:30 | Emergency (ER) | payer MEDICARE, SELFPAY ==
[2024-07-25 19:10] VITALS: BP 141/87; PULSE 99; RESP 19; TEMP 36.8; O2SAT 98; BMI 16.2
--- NOTE | 2024-07-25 19:25 | ED_ITS ---
Discharge Plan Disposition Patient Disposition: Home, Self-Care Condition: Good Prescriptions Prescriptions: No Action cyclobenzaprine 10 mg tablet 10 mg PO .bedtime budesonide 3 mg capsule,delayed,extend.release 9 mg PO DAILY Qty: 90 1RF doxycycline hyclate 100 mg capsule 100 mg PO BID Qty: 20 0RF Referrals Follow up/Referrals: Loy Cruz MD [Primary Care Provider] - See instructions Activity Restrictions/Add. Instructions Additional Instructions/Restrictions: Drink extra fluids with and between meals. If you have difficulty drinking, try very small amounts of water or suck on ice chips. ? Avoid fruit juices, as these do not replace minerals and can actually increase diarrhea. ? Children and adults can use sports drinks to replenish electrolytes. Younger children and infants should use products formulated for children, like oral rehydration solutions. ? Eat food in small amounts and let your stomach recover. ? Get lots of rest. You may feel tired or weak. ? No greasy or fried foods for the next 24-48 hours BRAT diet Bananas Rice Apples and Bruni ? Make sure to drink plenty of liquids ? Return if needed ? Straight to ER if any life threatening symptoms ? You was given an outpatient order for diarrhea panel, please collect specimen and bring back to outpatient lab then call back to the [facility] or follow up with family doctor for results ? Follow up with family doctor in the next 48-72 hours if no improvement or any worsening of symptoms Clinical Impressions Clinical Impression: Diarrhea Instructions Patient Instructions: Diarrhea Print Language Print Language: Martiniquais Discharge ED Provider: Lizette Krishnan [facility] [place] HPI General Stated complaint: fever, body aches, abd pain Mode of Arrival: Ambulatory Source of Information: Patient Limitations: No Limitations Time Seen by Provider: 07/25/24 19:25 Description of Symptoms (Recalled from Triage Doc. by RN): PATIENT C/O FEVER, ABDOMINAL CRAMPING, AND DIARRHEA X 4 DAYS HEENT Symptoms (Recalled from RN notes): No Resp Symptoms (Recalled from RN notes): No Skin Symptoms (Recalled from RN notes): No MS Symptoms (Recalled from RN notes): No Functional Status (Recalled from RN notes): WNL History of Present Illness Provider Complaint: Patient states that she thinks she may have had a low grade fever on and off but not sure but has been having cramping and diarrhea on and off for 4 days not sure if she may have a stomach bug or something going around Denies any other symptoms Denies sore throat, denies body aches, denies known sick exposure, denies urinary symptoms States that she did have a tick bite and she took a couple doses of Doxy and it made her sick at her stomach so she stopped it but the tick bite looks better Related Data Home Medications ?Medication ?Instructions ?Recorded ?Confirmed cyclobenzaprine 10 mg tablet 10 mg PO .bedtime 05/07/24 07/25/24 Previous Rx's ?Medication ?Instructions ?Recorded budesonide 3 mg 9 mg (3 x 3 mg) PO DAILY #90 ea 05/07/24 capsule,delayed,extended release doxycycline hyclate 100 mg capsule 100 mg PO BID #20 caps 07/17/24 Allergies Allergy/AdvReac Type Severity Reaction Status Date / Time Sulfa (Sulfonamide Allergy Mild rash Verified 05/07/24 11:27 Antibiotics) methocarbamol (From Robaxin) Allergy Unknown Verified 05/07/24 11:27 allergy reaction Penicillins Allergy Unknown Verified 05/07/24 11:27 allergy reaction methylprednisolone AdvReac Unknown Verified 05/07/24 11:27 allergy reaction Worker's Comp Is this a Worker's Comp case?: No [facility] Disclaimer: The information contained in this section may have been updated after the patient was seen, as this information can be updated by other users. 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 Strep sore throat Otitis media of right ear Sinusitis Low back pain Muscle spasm Back pain Upper respiratory infection Acute viral syndrome Bronchitis Dyspnea Allergy to sulfa drugs Itching Migraine Otitis media Viral syndrome COPD exacerbation Exposure to COVID-19 virus Viral syndrome Syncope and collapse Abdominal pain Fatigue COPD exacerbation Chest pain Lumbar radiculopathy Viral upper respiratory illness Skin problem Surgical History Hx of fusion of cervical spine H/O tubal ligation Family History Father Coronary artery disease Mother Cancer breast Sister Cancer gallbladder Sister Cancer breast Hypertension Son Hyperlipidemia 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 Smoking Status: Current every day smoker tobacco type: cigarettes packs per day: 1 years smoked: 30 alcohol intake: never current occupational status: retired Travel in the last 8 weeks: None caffeine: Yes Have you lived/traveled outside [place] in past 30 days?: No Contact w/someone who lives/traveled outside [place] past 30 days?: No Exposure to someone with infectious disease in past 14 days?: No Do you have a fever (greater than 100.4 F or 38 C)?: Yes Have you tested positive for COVID-19: No Exposed to someone with COVID-19 in past 14 days?: No Do you have a sore throat?: No Do you have a cough?: No Do you have any weakness?: No Do you have any diarrhea?: No Are you experiencing any unusual bleeding?: No Do you have any muscle aches/pain?: Yes Do you have any abdominal pain?: Yes Are you experiencing loss of taste or smell?: No ROS Obtained: Yes All systems reviewed & no additional complaints except as documented and Yes Systems reviewed as appropriate & no additional complaints except as documented Constitutional Constitutional: Reports system reviewed and no additional complaints, except as documented, Reports as per HPI and Reports fever(s) (thinks she may have had one not sure) ENT Ears, Nose, Mouth, and Throat: Reports system reviewed and no additional complaints, except as documented, Reports as per HPI, Denies otalgia, Denies nasal congestion, Denies nasal discharge, Denies sinus pain, Denies sinus pressure and Denies sore throat Cardiovascular Cardiovascular: Reports system reviewed and no additional complaints, except as documented and Denies chest pain Respiratory Respiratory: Reports system reviewed and no additional complaints, except as documented, Reports as per HPI, Denies shortness of breath, Denies chest congestion, Denies cough, Denies stridor and Denies wheezing Gastrointestinal Gastrointestingal: Reports system reviewed and no additional complaints, except as documented, as per HPI, cramping and diarrhea; Denies abdominal pain, nausea or vomiting Genitourinary Female Genitourinary: Reports system reviewed and no additional complaints, except as documented, Reports as per HPI, Denies dysuria, Denies urinary frequency and Denies urinary urgency Musculoskeletal Musculoskeletal: Reports system reviewed and no additional complaints, except as documented and Reports as per HPI Integumentary/Breasts Skin/Breast: Reports system reviewed and no additional complaints, except as documented and Reports as per HPI Allergic/Immunologic Allergic/Immunologic: Denies wheezing Physical Exam General General appearance: alert and in no apparent distress ENT ENT exam: Present normal exam, normal oropharynx, mucous membranes moist and TM's normal bilaterally Chest Chest inspection: Present normal inspection and symmetric chest wall rise Respiratory Respiratory exam: Present normal lung sounds bilaterally; Absent respiratory distress or wheezes Cardiovascular Cardiovascular exam: Present regular rate, normal rhythm and normal heart sounds Abdominal Exam Abdominal exam: Present soft and normal bowel sounds; Absent distention or tenderness Neurological Exam Neurological exam: Present alert, oriented X3 and normal gait Medical Decision Making Medical Records Screening: Per USPSTF and CDC recommendations, given the prevalence of disease in our region, it is our hospital?s policy to screen for HIV and viral Hepatitis for all patients aged 18 and over and those with ongoing risk factors. [place] Inquiry Pt receiving controlled substance: No [place] was queried for this patient: No Vital Signs: 07/25/24 19:10 Temperature 98.3 F Temperature Source Oral Pulse Rate [Left Brachial] 99 H Respiratory Rate 19 Blood Pressure [Left Arm] 141/87 H Blood Pressure Mean [Left Arm] 105 Blood Pressure Source [Left Arm] Automatic Cuff Blood Pressure Position [Left Arm] Sitting 02 Sat by Pulse Oximetry 98 Oxygen Delivery Method Room Air Medical Decision Narrative: patient initially complained of abdominal pain discussed with patient about transfer to the ED for further work up and evaluation and she declined states that it was more like cramping and been having diarrhea Discussed with patient about diarrhea painel and dc her with collection supplies and her collect diarrhea specimen and bring it back to outpatient lab since she says that she isnt about to go and not able to collect specimen at this time and follow up wit h PCP and patient agreed Refused ED transfer Patient given strict return precautions to the ED and make sure that she is drinking plenty of fluids
[2024-07-25 19:40] VITALS: BP 141/87; PULSE 99; RESP 19; TEMP 36.8; O2SAT 98
== END 2024-07-25 19:45 | disposition home or self-care (01) ==
PROVIDERS: Emergency Provider Nurse Practitioner; PCP Family Medicine
DX: R19.7 Diarrhea, unspecified (principal); R10.9 Unspecified abdominal pain
CPT/HCPCS: 99213; G0381

== ENCOUNTER 2024-07-28 14:20 | Emergency (ER) | payer MEDICARE, SELFPAY ==
[2024-07-28 14:21] VITALS: BP 135/86; PULSE 79; RESP 18; TEMP 37; O2SAT 92; BMI 14.7
[2024-07-28 14:38] VITALS: BP 146/79; PULSE 93; RESP 18; O2SAT 97
--- NOTE | 2024-07-28 14:40 | PC.NURSE ---
IV inserted. Pt resting comfortably in bed. provided warm blankets denies any other needs
[2024-07-28 15:01] VITALS: BP 109/76; PULSE 89; RESP 18; O2SAT 98
--- NOTE | 2024-07-28 15:14 | CT_ITS ---
PROCEDURE INFORMATION: Exam: CT Abdomen And Pelvis With Contrast Exam date and time: 07/28/2024 3:57 PM Age: 68 years old Clinical indication: Abdominal pain; Additional info: Abdominal pain, diarrhea TECHNIQUE: Imaging protocol: Computed tomography of the abdomen and pelvis with contrast. Radiation optimization: All CT scans at this facility use at least one of these dose optimization techniques: automated exposure control; mA and/or kV adjustment per patient size (includes targeted exams where dose is matched to clinical indication); or iterative reconstruction. Contrast material: ISOVUE; Contrast volume: 75 ml; Contrast route: IV; COMPARISON: CT ABDOMEN PELVIS WO CON 04/03/2023 11:08 AM FINDINGS: Lungs: Lung bases are clear. Liver: The liver is normal. Gallbladder and biliary ducts: Gallbladder is normal. There is no evidence of biliary ductal dilation. Pancreas: The pancreas is normal. Spleen: The spleen demonstrates punctate calcifications, consistent with remote granulomatous organism exposure. The spleen is otherwise unremarkable. Adrenal glands: Adrenal glands are normal. Kidneys and ureters: The right kidney is normal. The left kidney is normal. No hydroureter. Stomach and bowel: Mucosal hyperemia and circumferential wall thickening at the rectum, sigmoid, descending colon, transverse colon, and ascending colon. No small bowel wall thickening. There is no evidence of intestinal obstruction. Stomach is decompressed and difficult to evaluate. Duodenum is unremarkable. Appendix: A normal appendix is identified. Intraperitoneal space: There is no evidence of free intraperitoneal or pelvic fluid. No intraperitoneal fluid collections. There is no free intraperitoneal air. Vasculature: Moderate atherosclerotic calcification of the arterial vasculature. 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 Lymph nodes: There is no evidence of lymphadenopathy. Urinary bladder: Bladder is decompressed and difficult to evaluate. Reproductive: Reproductive organs are unremarkable as visualized. Bones/joints: There are healed right rib fractures. Bone demineralization. Grade 1 anterolisthesis of L5 in relation to S1. No pars interarticularis defects. Mild multilevel degenerative changes of the spine. No acute skeletal abnormality or aggressive osseous lesion. Soft tissues: Left buttock calcified granulomas are benign. No acute soft tissue findings. IMPRESSION: 1. Moderate proctocolitis. 2. 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 3. Incidental findings as above.
--- NOTE | 2024-07-28 15:14 | XR_ITS ---
PROCEDURE INFORMATION: Exam: XR Chest Exam date and time: 07/28/2024 4:01 PM Age: 68 years old Clinical indication: Cough and shortness of breath; Additional info: Shortness of air, cough TECHNIQUE: Imaging protocol: Radiologic exam of the chest. Views: 1 view. COMPARISON: CT ABDOMEN PELVIS W CON 07/28/2024 3:57 PM FINDINGS: Airway: Airways are patent. Lungs: Lung hyperexpansion, favoring COPD. Lung hyperlucency, favoring emphysema. Bilateral apical capping/scarring. Calcified granulomas throughout the lungs are benign. Right hilar calcified granulomas, benign. No consolidations. Pleural spaces: No pleural effusions or pneumothorax. Heart/Mediastinum: No cardiomegaly. Vasculature: Calcified aortic knob. Bones/joints: Chronic appearing osseous remodeling in the proximal left humeral metaphysis. No acute skeletal abnormality. Soft tissues: No acute soft tissue findings. IMPRESSION: 1. No acute findings. 2. Incidental findings as above.
--- NOTE | 2024-07-28 15:18 | ED_ITS ---
<Statement entered by Jay Ramsey MD - 08/01/24 23:09> I was consulted by the LORRI, and we discussed the complexity of the problems being addressed. I approved the treatment and management plan for this patient's care in the emergency department, thus performing a substantive portion of the medical decision making. Jay Ramsey MD, PAVAN, FACEP Discharge Plan Disposition Patient Disposition: Home, Self-Care Condition: Good Prescriptions Prescriptions: No Action cyclobenzaprine 10 mg tablet 10 mg PO .bedtime budesonide 3 mg capsule,delayed,extend.release 9 mg PO DAILY Qty: 90 1RF vancomycin 125 mg capsule 125 mg PO QID 10 Days Qty: 40 0RF doxycycline hyclate 100 mg capsule 100 mg PO BID Qty: 20 0RF Referrals Follow up/Referrals: Luther Justice II, MD [Staff Physician] - See instructions (Patient follow-up for microscopic colitis versus proctocolitis. Stool sample is pending.) Activity Restrictions/Add. Instructions Additional Instructions/Restrictions: Follow-up with GI provider/physician as directed, please return to the emergency department for any worsening signs or symptoms, see standing lab order for stool sample when able to give. Follow-up PCP as directed continue all medications as prescribed. Clinical Impressions Clinical Impression: Colitis Abdominal pain Qualifiers: Abdominal location: unspecified location Qualified Code(s): R10.9 - Unspecified abdominal pain Instructions Patient Instructions: DI for Acute Abdominal Pain Print Language Print Language: Turkish Discharge ED Provider: Chao Tse General Adult [facility] General Chief complaint: Abdominal Pain Stated complaint: abdominal pain Time Seen by Provider: 07/28/24 14:51 Mode of Arrival: EMS Source of Information: Patient Limitations: No Limitations Description of Symptoms (Recalled from ER Triage Doc. by RN): Pt presents for eval of abdominal pain since History of Present Illness HPI narrative: 68-year-old female presents the emergency department for abdominal pain, diarrhea, cough congestion for 1 month, she describes abdominal pain is waxing and waning, she denies any real nausea or vomiting, she admits to waxing waning fevers, Tmax is 101 ?F , taken today, she was seen in urgent care treatment facility several days ago was advised to come to the emergency department but did not choose to at that time. She has been treating at home with ibuprofen as needed for pain. She denies any chest pain, shortness of breath, any urinary type symptomatology, denies hematuria melena hematochezia, hematemesis. Other past medical history consistent with microscopic colitis, osteoporosis, cervical degenerative disc disease, emphysema, she is a current everyday smoker, denies any alcohol or drug use, initial triage vitals unremarkable, she is on chronic steroids. Onset (ago): month(s) Related Data Home Medications ?Medication ?Instructions ?Recorded ?Confirmed cyclobenzaprine 10 mg tablet 10 mg PO .bedtime 05/07/24 07/25/24 Previous Rx's ?Medication ?Instructions ?Recorded budesonide 3 mg 9 mg (3 x 3 mg) PO DAILY #90 ea 05/07/24 capsule,delayed,extended release doxycycline hyclate 100 mg capsule 100 mg PO BID #20 caps 07/17/24 vancomycin 125 mg capsule 125 mg PO QID 10 days #40 caps 07/30/24 Allergies Allergy/AdvReac Type Severity Reaction Status Date / Time Sulfa (Sulfonamide Allergy Mild rash Verified 05/07/24 11:27 Antibiotics) methocarbamol (From Robaxin) Allergy Unknown Verified 05/07/24 11:27 allergy reaction Penicillins Allergy Unknown Verified 05/07/24 11:27 allergy reaction methylprednisolone AdvReac Unknown Verified 05/07/24 11:27 allergy reaction PFSH PFSH Disclaimer: The information contained in this section may have been updated after the patient was seen, as this information can be updated by other users. 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 Strep sore throat Otitis media of right ear Sinusitis Low back pain Muscle spasm Back pain Upper respiratory infection Acute viral syndrome Bronchitis Dyspnea Allergy to sulfa drugs Itching Migraine Otitis media Viral syndrome COPD exacerbation Exposure to COVID-19 virus Viral syndrome Syncope and collapse Abdominal pain Fatigue COPD exacerbation Chest pain Lumbar radiculopathy Viral upper respiratory illness Skin problem Surgical History Hx of fusion of cervical spine H/O tubal ligation Family History Father Coronary artery disease Mother Cancer breast Sister Cancer gallbladder Sister Cancer breast Hypertension Son Hyperlipidemia 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 Smoking Status: Former smoker tobacco type: cigarettes packs per day: 1 years smoked: 30 alcohol intake: never current occupational status: retired Travel in the last 8 weeks: None caffeine: Yes Other 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 Have you received the Flu Vaccine for this season: No Have you received the Pneumonia Vaccine: No ROS Obtained: Yes All systems reviewed & no additional complaints except as documented Physical Exam General General appearance: alert and in no apparent distress Head Head exam: atraumatic and normocephalic Eye Eye exam: Present PERRL, EOMI, scleral icterus and other (Some mild scleral icterus present, unsure of chronicity) ENT ENT exam: Present mucous membranes moist Neck Neck exam: Present normal inspection Chest Chest inspection: Present normal inspection and symmetric chest wall rise Respiratory Respiratory exam: Present normal lung sounds bilaterally; Absent respiratory distress Cardiovascular Cardiovascular exam: Present regular rate and normal rhythm Abdominal Exam Abdominal exam: Present soft, tenderness and tenderness at McBurney's Point Abdominal tenderness: Present diffuse and mild Comment: There are some mild to moderate diffuse brittany tenderness, no guarding or rigidity at this time. Extremities Exam Extremities exam: Present normal inspection Neurological Exam Neurological exam: Present alert and oriented X3 Psychiatric Psychiatric exam: Present normal affect Skin Skin exam: Present warm and dry Medical Decision Making Medical Records Medical records reviewed: Yes I reviewed the patient's medical records. Screening: Per USPSTF and CDC recommendations, given the prevalence of disease in our region, it is our hospital?s policy to screen for HIV and viral Hepatitis for all patients aged 18 and over and those with ongoing risk factors. [place] Inquiry Pt receiving controlled substance: No [place] was queried for this patient: No Vital Signs: 07/28/24 14:21 07/28/24 14:38 07/28/24 15:01 Temperature 98.6 F Temperature Source Oral Pulse Rate 93 H 89 Pulse Rate [Right Radial] 79 Respiratory Rate 18 18 18 Blood Pressure 146/79 H 109/76 L Blood Pressure [Right Arm] 135/86 Blood Pressure Mean 101 87 Blood Pressure Mean [Right Arm] 102 Blood Pressure Source [Right Arm] Automatic Cuff Blood Pressure Position [Right Arm] Sitting 02 Sat by Pulse Oximetry 92 L 97 98 Oxygen Delivery Method Room Air 07/28/24 15:31 07/28/24 17:21 07/28/24 19:09 Temperature 98.1 F Temperature Source Pulse Rate 98 H 85 88 Pulse Rate [Right Radial] Respiratory Rate 18 Blood Pressure 109/81 L 95/66 L 125/77 Blood Pressure [Right Arm] Blood Pressure Mean Blood Pressure Mean [Right Arm] Blood Pressure Source [Right Arm] Blood Pressure Position [Right Arm] 02 Sat by Pulse Oximetry 96 98 Oxygen Delivery Method Room Air Room Air Lab Data Lab results reviewed: Yes I reviewed the patient's lab results. Lab Results 07/28/24 14:35: WBC 12.2 H, RBC 4.58, Hgb 13.5, Hct 41.2, MCV 90.0, MCH 29.5, MCHC 32.8, RDW 14.2, Plt Count 375, MPV 9.8, Neut % (Auto) 71.8, Lymph % (Auto) 13.6, [place] % (Auto) 12.0 H, Eos % (Auto) 1.9, Baso % (Auto) 0.4, Neut # (Auto) 8.8 H, Lymph # (Auto) 1.7, [place] # (Auto) 1.5 H, Eos # (Auto) 0.2, Baso # (Auto) 0.1, Sodium 138, Potassium 3.1 L, Chloride 101, Carbon Dioxide 27, Anion Gap 13.1, BUN 7, Creatinine 0.70, Estimated Creat Clear 32, Estimated GFR 83, Est GFR ( Amer) 101, Glucose 104 H, Lactate 1.1, Calcium 9.5, Magnesium 1.7, Total Bilirubin 0.5, AST 41 H, ALT 18, Alkaline Phosphatase 83, Total Protein 7.8, Albumin 4.4, Globulin 3.4 H, Albumin/Globulin Ratio 1.3, Lipase 54, Urine Color Yellow, Urine Appearance Clear, Urine pH 6.0, Ur Specific [place] 1.020, Urine Protein Negative, Urine Glucose (UA) Negative, Urine Ketones Negative, Urine Blood Trace-i, Urine Nitrate Negative, Urine Bilirubin Negative, Urine Urobilinogen 0.2, Ur Leukocyte Esterase Negative, Urine RBC 5-10, Urine WBC 10- 20, Ur Squamous Epith Cells 10-20, Urine Bacteria 1+ 07/28/24 15:25: SARS-CoV-2 (PCR) Not detected, Influenza A Untype (PCR) Not detected, Influenza Type B (PCR) Not detected 07/28/24 14:35 07/28/24 14:35 Orders (Tests/Meds): ED MEDICATIONS Discontinued Medications Generic Name Dose Route Start Last Admin Trade Name Reese PRN Reason Stop Dose Admin Iopamidol 75 ml 07/28/24 15:57 07/28/24 15:58 Iopamidol-370 (76%);100ml Bottle IV 07/28/24 15:58 75 ml ONCE ONE Administration Morphine Sulfate 2 mg 07/28/24 15:30 07/28/24 15:21 Morphine 2mg/Ml Syringe IV 07/28/24 15:31 2 mg ONCE ONE Administration Ondansetron HCl 4 mg 07/28/24 15:17 07/28/24 15:21 Ondansetron 4mg/2ml Vial IV 07/28/24 15:18 4 mg ONCE ONE Administration Sodium Chloride 10 ml 07/28/24 15:57 07/28/24 15:58 Sodium Chloride 0.9% 10ml Syr (Rad Only) IV 07/28/24 15:58 10 ml ONCE ONE Administration ORDERS Category Date Time Status CT abdomen pelvis w con Stat Cat Scan 07/28/24 15:14 Completed XR chest portable Stat Exams 07/28/24 15:14 Completed Complete Blood Count Auto Diff Stat Lab 07/28/24 14:35 Completed Comprehensive Metabolic Panel Stat Lab 07/28/24 14:35 Completed Lactic Acid Stat Lab 07/28/24 14:35 Completed Lipase Stat Lab 07/28/24 14:35 Completed Magnesium Stat Lab 07/28/24 14:35 Completed Rapid PCR Covid and Flu A/B Stat Lab 07/28/24 15:25 Completed Urinalysis and Microscopic Stat Lab 07/28/24 14:35 Completed Urine Culture Stat Micro 07/28/24 14:35 Completed Medical Decision Narrative: 68-year-old female presents the emergency department with abdominal pain cough congestion fever, differential diagnose include not limited to colitis, ileitis, constipation, acute URI, pneumonia, cardiac arrhythmia, electrolyte disturbance, bowel obstruction, volvulus, appendicitis, cholelithiasis, choledocholithiasis, cholangitis, diverticulitis, gastroenteritis I discussed patient case with the attending physician Dr. Ramsey Will obtain basic laboratory studies lactic acid level lipase magnesium level rapid PCR COVID and flu urinalysis chest x-ray CT on pelvis with contrast will give 2 mg IV morphine and 4 mg IV Zofran CBC is notable for leukocytosis of 12.2 CMP notable for minimal hypokalemia at 3.1, AST is mildly elevated at 41 Urinalysis unremarkable Lactate and lipase within normal limit The patient's chest x-ray along the corresponding radiologic report no acute finding. Reviewed the patient's CT and pelvis with contrast along with corresponding radiologic report, moderate proctocolitis, 3.7 cm fusiform aneurysm of the infrarenal abdominal aorta, incidental findings as above. Influenza A influenza B and COVID-19 are negative. Will attempt to reach out to GI physician for further recommendations/consultation most likely outpatient follow-up. I discussed this patient's case with the on-call GI physician Dr. Justice at 5:10 PM he recommends stool PCR as well as fecal calprotectin and follow-up in the GI office as outpatient he believes his leukocytosis is due to most likely chronic glucocorticoid use versus microscopic colitis. After numerous attempts, unfortunately patient was unable to give stool sample, patient states she will bring stool sample by tomorrow for standing lab order and follow-up with GI physician. Strict ED return precautions were given. Patient voiced understanding agree with current treatment plan/discharge plan will return to the emergency any worsening signs or symptoms Critical Care Critical Care Time Critical Care Time: No
[2024-07-28] MEDS: ONDANSETRON 4MG/2ML VIAL 4 MG IV (15:21)
[2024-07-28] MEDS: MORPHINE 2MG/ML SYRINGE 2 MG IV (15:21)
[2024-07-28 15:22] LABS: Microscopic, Urine URINE MICROSCOPIC (MICROSCOPIC)
[2024-07-28 15:26] LABS: Basophils # 0.1 K/mm3 (0-0.2); Basophils % 0.4 % (0.1-2.0); Eosinophils # 0.2 K/mm3 (0.0-0.4); Eosinophils % 1.9 % (0.1-12.0); Hematocrit 41.2 % (37.0-47.0); Hemoglobin 13.5 g/dL (12.2-16.2); Lymphocytes # 1.7 K/mm3 (0.7-4.5); Lymphocytes % 13.6 % (10-50); Mean Corpuscular HGB Conc 32.8 g/dL (31.8-35.4); Mean Corpuscular Hemoglobin 29.5 pg (27.0-31.2); Mean Platelet Volume 9.8 fl (7.4-10.4); Monocytes # 1.5 K/mm3 (0.1-1.0); Neutrophils # 8.8 K/mm3 (1.8-7.8); Neutrophils % 71.8 % (37.0-80.0); Platelet Count 375 K/mm3 (142-424); Red Blood Count 4.58 M/mm3 (4.20-5.40); Red Cell Distribution Width 14.2 % (11.5-17.5); White Blood Count 12.2 K/mm3 (4.8-10.8)
[2024-07-28 15:28] LABS: Albumin Level 4.4 g/dl (3.5-5.0); Chloride 101 mmol/L (98-107); Sodium 138 mmol/L (136-145)
[2024-07-28 15:28] LABS: Coronavirus 19, PCR Not Detected (NotDetected); Influenza A, PCR Not Detected (NotDetected); Influenza B, PCR Not Detected (NotDetected)
[2024-07-28 15:29] LABS: Potassium 3.1 mmoL/L (3.5-5.1)
[2024-07-28 15:31] VITALS: BP 109/81; PULSE 98; O2SAT 96
[2024-07-28 15:31] LABS: Alanine Aminotransferase 18 U/L (12-78); Albumin/Globulin Ratio 1.3 (1.1-1.8); Alkaline Phosphatase 83 U/L (38-126); Anion Gap 13.1 mEq/L (5-15); Appearance,Urine CLEAR (Clear); Aspartate Amino Transferase 41 U/L (14-36); Bilirubin,Total 0.5 mg/dl (0.2-1.3); Bilirubin,Urine Negative (Negative); Blood Urea Nitrogen 7 mg/dl (7-17); Blood, Urine TRACE-I (Negative); Carbon Dioxide 27 mmol/L (22.0-30.0); Color,Urine YELLOW (Yellow); Creatinine Clearance Estimated 32 mL/min (50-200); Estimated Glomerular Filt Rate 83 ml/min (>60); GFR (African American) 101 ML/MIN (>60); Globulin 3.4 g/dL (1.3-3.2); Glucose,Urine (UA) Negative (Negative); Ketones,Urine Negative (Negative); Leukocyte Esterase,Urine Negative (Negative); Magnesium 1.7 mg/dl (1.6-2.3); Nitrate,Urine Negative (Negative); Protein,Urine Negative (Negative); Total Protein,Serum 7.8 g/dl (6.3-8.2); Urobilinogen,Urine 0.2 EU/dl (0.2)
[2024-07-28 15:32] LABS: Calcium 9.5 mg/dl (8.4-10.2); Glucose 104 mg/dl (74-100); Lactic Acid 1.1 mmol/L (0.7-2.1); Lipase 54 U/L (23-300)
--- NOTE | 2024-07-28 15:32 | ECG_ITS ---
APPROVED REPORT Exam: Resting ECG HR:87 bpm ECG Measurements Heart Rate 87 AXES DE 129 P 75 QRSd 78 QRS 7 QT 272 T 65 QTc 317 Conclusion SINUS RHYTHM NONSPECIFIC T-WAVE ABNORMALITY BORDERLINE ECG UNCONFIRMED REPORT Electronically signed by : FALGUNI SÁNCHEZ, 07/31/2024 05:47:34
[2024-07-28 15:53] LABS: Bacteria,Urine 1+ /lpf
--- NOTE | 2024-07-28 15:54 | PC.NURSE ---
PT TRANSPORTED TO RADIOLOGY VIA WHEELCHAIR
[2024-07-28] MEDS: SODIUM CHLORIDE 0.9% 10ML SYR (RAD ONLY) 10 ML IV (15:58)
[2024-07-28] MEDS: IOPAMIDOL-370 (76%);100ML BOTTLE 75 ML IV (15:58)
--- NOTE | 2024-07-28 16:54 | PC.NURSE ---
DR GARCIA PAGED, MESSAGE LEFT
[2024-07-28 17:21] VITALS: BP 95/66; PULSE 85; O2SAT 98
[2024-07-28 19:09] VITALS: BP 125/77; PULSE 88; RESP 18; TEMP 36.7; O2SAT 97
== END 2024-07-28 19:09 | disposition home or self-care (01) ==
PROVIDERS: Physician Assistant; Emergency Provider Emergency Medicine
DX: K52.839 Microscopic colitis, unspecified (principal); R10.9 Unspecified abdominal pain; R19.7 Diarrhea, unspecified; R05.9 Cough, unspecified; R09.81 Nasal congestion; R50.9 Fever, unspecified
CPT/HCPCS: 71045; 74177; 80053; 81001; 83605; 83690; 83735; 85025; 87086; 87636; 93005; 96374; 96375; 99285; J2270; J2405; Q9967

== ENCOUNTER 2024-07-30 13:37 | Outpatient (CLI) | payer MEDICARE, SELFPAY ==
[2024-07-30 13:43] LABS: Adenovirus F 40/41, stool Not Detected (NotDetected); Astrovirus Not Detected (NotDetected); Campylobacter Not Detected (NotDetected); Cryptosporidium Not Detected (NotDetected); Cyclospora Cayetanesis Not Detected (NotDetected); Entamoeba histolytica Not Detected (NotDetected); Enteroaggregative E coli Not Detected (NotDetected); Enteropathogenic E coli Not Detected (NotDetected); Enterotoxigenic E coli Not Detected (NotDetected); Giardia lamblia Not Detected (NotDetected); Norovirus Not Detected (NotDetected); Plesimonas Shigalloides, PCR Not Detected (NotDetected); Rotavirus A Not Detected (NotDetected); Salmonella, PCR Not Detected (NotDetected); Sapovirus Not Detected (NotDetected); Shiga-like toxin E coli Not Detected (NotDetected); Shigella Enterovasive E coli Not Detected (NotDetected); Vibrio Cholerae Not Detected (NotDetected); Vibrio, PCR Not Detected (NotDetected); Yersinia Entercolitica, PCR Not Detected (NotDetected)
[2024-07-30 16:51] LABS: Clostridium Difficile A/B, PCR Detected (NotDetected)
== END 2024-07-30 23:59 | disposition home or self-care (01) ==
LOC: LAB.DROPOF 13:38
PROVIDERS: Nurse Practitioner; PCP Family Medicine; Visit Provider Family Medicine
DX: A04.72 Enterocolitis due to Clostridium difficile, not specified as recurrent (principal)
CPT/HCPCS: 87506

== ENCOUNTER 2024-08-02 20:42 | Inpatient (IN) | payer MEDICARE, SELFPAY ==
[2024-08-02 20:43] VITALS: BP 135/83; PULSE 100; RESP 22; TEMP 36.9; O2SAT 94; BMI 15.6
--- NOTE | 2024-08-02 21:08 | XR_ITS ---
PROCEDURE INFORMATION: Exam: XR Chest Exam date and time: 08/02/2024 9:20 PM Age: 68 years old Clinical indication: Cough and shortness of breath; Additional info: Cough, SOA TECHNIQUE: Imaging protocol: Radiologic exam of the chest. Views: 2 views. COMPARISON: CR XR CHEST PORTABLE 07/28/2024 4:01 PM FINDINGS: Lungs: Moderate to severe emphysema. No acute infiltrates.. Pleural spaces: Unremarkable. No pleural effusion. No pneumothorax. Heart/Mediastinum: Unremarkable. No cardiomegaly. Bones/joints: Unremarkable. Other findings: . IMPRESSION: 1. Moderate to severe emphysema. 2. No acute infiltrates..
[2024-08-02] MEDS: ACETAMINOPHEN 1,000MG/100ML VIAL 1000 MG IV (21:25)
[2024-08-02] MEDS: KETOROLAC 30MG/ML VIAL 15 MG IV (21:25)
[2024-08-02] MEDS: IPRATROPIUM/ALBUTEROL 3 ML NEB 9 ML IH (21:25)
[2024-08-02 21:29] LABS: Coronavirus 19, PCR Not Detected (NotDetected); Influenza A, PCR Not Detected (NotDetected); Influenza B, PCR Not Detected (NotDetected); Microscopic, Urine URINE MICROSCOPIC (MICROSCOPIC)
[2024-08-02 21:29] LABS: Basophils # 0.1 K/mm3 (0-0.2); Basophils % 0.3 % (0.1-2.0); Eosinophils # 0.1 K/mm3 (0.0-0.4); Eosinophils % 0.6 % (0.1-12.0); Hematocrit 36.3 % (37.0-47.0); Hemoglobin 12.4 g/dL (12.2-16.2); Lymphocytes # 1.3 K/mm3 (0.7-4.5); Lymphocytes % 7.2 % (10-50); Mean Corpuscular HGB Conc 34.2 g/dL (31.8-35.4); Mean Corpuscular Hemoglobin 29.6 pg (27.0-31.2); Mean Corpuscular Volume 86.6 fl (81-99); Mean Platelet Volume 9.4 fl (7.4-10.4); Monocytes # 1.2 K/mm3 (0.1-1.0); Monocytes % 6.8 % (1.7-9.3); Neutrophils # 15.1 K/mm3 (1.8-7.8); Neutrophils % 84.6 % (37.0-80.0); Platelet Count 366 K/mm3 (142-424); Red Blood Count 4.19 M/mm3 (4.20-5.40); Red Cell Distribution Width 13.4 % (11.5-17.5); White Blood Count 17.9 K/mm3 (4.8-10.8)
[2024-08-02 21:30] LABS: Lactate Venous 1.6 mmol/L (0.4-2.0); VBG Base Excess 2.6 mmol/L (-2.4-2.3); VBG PCO2 35.5 mmol/L (35-51); VBG PH 7.48 mmol/L (7.31-7.41); VBG Total CO2 27.1 mmol/L (23-27)
--- NOTE | 2024-08-02 21:30 | PC.NURSE ---
Pt to CT scan via wheelchair
[2024-08-02 21:31] LABS: MANUAL DIFFERENTIAL MANUAL DIFFERENTIAL (MANUAL DIFF)
[2024-08-02 21:37] LABS: Appearance,Urine CLEAR (Clear); Bilirubin,Urine Negative (Negative); Blood, Urine 2+ (Negative); Color,Urine YELLOW (Yellow); Glucose,Urine (UA) Negative (Negative); Ketones,Urine Negative (Negative); Leukocyte Esterase,Urine Negative (Negative); Nitrate,Urine Negative (Negative); Protein,Urine TRACE (Negative); Specific Gravity, Urine 1.025 (1.005-1.030); Urobilinogen,Urine 0.2 EU/dl (0.2)
[2024-08-02 21:38] LABS: Albumin Level 3.8 g/dl (3.5-5.0); Chloride 99 mmol/L (98-107); Sodium 130 mmol/L (136-145)
[2024-08-02 21:40] LABS: Blood Urea Nitrogen 3 mg/dl (7-17); Creatinine Clearance Estimated 31 mL/min (50-200); Estimated Glomerular Filt Rate 100 ml/min (>60); GFR (African American) 121 ML/MIN (>60)
[2024-08-02 21:41] LABS: Alanine Aminotransferase 25 U/L (12-78); Albumin/Globulin Ratio 1.2 (1.1-1.8); Alkaline Phosphatase 111 U/L (38-126); Anion Gap 6.7 mEq/L (5-15); Aspartate Amino Transferase 34 U/L (14-36); Bilirubin,Total 0.4 mg/dl (0.2-1.3); Calcium 8.8 mg/dl (8.4-10.2); Carbon Dioxide 27 mmol/L (22.0-30.0); Globulin 3.2 g/dL (1.3-3.2); Glucose 118 mg/dl (74-100); Magnesium 1.8 mg/dl (1.6-2.3); Phosphorous 2.5 mg/dl (2.5-4.5)
[2024-08-02 21:43] LABS: Potassium 2.7 mmoL/L (3.5-5.1)
--- NOTE | 2024-08-02 21:44 | PC.NURSE ---
critical lab reported, potassium 2.7
[2024-08-02 21:47] LABS: Eosinophils % 1 % (0-3); Lymphocytes % 15 % (10-50); Monocytes % 5 % (2-9); Neutrophils % 79 % (42-76); Total Cells Counted 100
--- NOTE | 2024-08-02 21:47 | ED_ITS ---
Discharge Plan Disposition Patient Disposition: Admitted Clinical Impressions Clinical Impression: C. difficile colitis, Acute exacerbation of chronic obstructive pulmonary disease, Hypokalemia Discharge ED Provider: Krystal Turner General Adult HPI General Chief complaint: Abdominal Pain Stated complaint: SOA Time Seen by Provider: 08/02/24 20:48 Mode of Arrival: Ambulatory Source of Information: Spouse Limitations: No Limitations Description of Symptoms (Recalled from ER Triage Doc. by RN): pt complains of short of breath, abdominal pain, and diarhhea. pt was diagnosed with CDiff saturday and has been on vanc since then. History of Present Illness HPI narrative: This patient is a 68-year-old female with history of COPD, chronic diarrhea and microscopic colitis presenting to the emergency department for evaluation with concern for fever, cough, shortness of breath, and continued diarrhea. Patient was evaluated here 07/28/2024 for abdominal pain and diarrhea, and she provided an outpatient stool sample 07/30/2024. CT scan on 07/28/2024 was concerning for colitis, & 07/30/2024 was positive for C. difficile. She has been on oral vancomycin since then. She states she is not feeling any better. She denies any significant worsening of symptoms but complains of continued abdominal pain, diarrhea, and hemorrhoid pain. She is on ointment for hemorrhoids. She also states that she is having cough with thick yellow sputum and shortness of breath it has been going on for about 2 days. Related Data Home Medications ?Medication ?Instructions ?Recorded ?Confirmed cyclobenzaprine 10 mg tablet 10 mg PO .bedtime 05/07/24 07/25/24 Previous Rx's ?Medication ?Instructions ?Recorded budesonide 3 mg 9 mg (3 x 3 mg) PO DAILY #90 ea 05/07/24 capsule,delayed,extended release doxycycline hyclate 100 mg capsule 100 mg PO BID #20 caps 07/17/24 vancomycin 125 mg capsule 125 mg PO QID 10 days #40 caps 07/30/24 Allergies Allergy/AdvReac Type Severity Reaction Status Date / Time Sulfa (Sulfonamide Allergy Mild rash Verified 05/07/24 11:27 Antibiotics) methocarbamol (From Robaxin) Allergy Unknown Verified 05/07/24 11:27 allergy reaction Penicillins Allergy Unknown Verified 05/07/24 11:27 allergy reaction methylprednisolone AdvReac Unknown Verified 05/07/24 11:27 allergy reaction PFSH PFSH Disclaimer: The information contained in this section may have been updated after the patient was seen, as this information can be updated by other users. 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 Strep sore throat Otitis media of right ear Sinusitis Low back pain Muscle spasm Back pain Upper respiratory infection Acute viral syndrome Bronchitis Dyspnea Allergy to sulfa drugs Itching Migraine Otitis media Viral syndrome COPD exacerbation Exposure to COVID-19 virus Viral syndrome Syncope and collapse Abdominal pain Fatigue COPD exacerbation Chest pain Lumbar radiculopathy Viral upper respiratory illness Skin problem Surgical History Hx of fusion of cervical spine H/O tubal ligation Family History Father Coronary artery disease Mother Cancer Sister Cancer Sister Cancer Hypertension Son Hyperlipidemia 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 Smoking Status: Former smoker tobacco type: cigarettes packs per day: 1 years smoked: 30 alcohol intake: never current occupational status: retired Travel in the last 8 weeks: None caffeine: Yes Have you lived/traveled outside [place] in past 30 days?: No Contact w/someone who lives/traveled outside [place] past 30 days?: No Exposure to someone with infectious disease in past 14 days?: No Do you have a fever (greater than 100.4 F or 38 C)?: No Have you tested positive for COVID-19: No Exposed to someone with COVID-19 in past 14 days?: No Do you have a sore throat?: No Do you have a cough?: No Do you have any weakness?: No Do you have any diarrhea?: No Are you experiencing any unusual bleeding?: No Do you have any muscle aches/pain?: No Do you have any abdominal pain?: No Are you experiencing loss of taste or smell?: No Other 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 Have you received the Flu Vaccine for this season: No Have you received the Pneumonia Vaccine: No ROS Obtained: Yes All systems reviewed & no additional complaints except as documented Physical Exam General General appearance: alert and in no apparent distress Head Head exam: atraumatic and normocephalic Eye Eye exam: Present normal appearance, PERRL and EOMI ENT ENT exam: Present normal exam, normal oropharynx, mucous membranes moist and normal external ear exam Neck Neck exam: Present normal inspection, full ROM and trachea midline; Absent tenderness Chest Chest inspection: Present normal inspection and symmetric chest wall rise; Absent tenderness Respiratory Respiratory exam: Present wheezes, accessory muscle use, prolonged expiratory phase and other (Bilateral wheezes and rhonchi with accessory muscle use and prolonged expiratory phase. No significant tachypnea. Oxygen saturation normal on room air); Absent stridor Cardiovascular Cardiovascular exam: Present regular rate and normal rhythm Abdominal Exam Abdominal exam: Present soft and tenderness (Left lower quadrant); Absent distention, guarding, rebound or rigidity Extremities Exam Extremities exam: Present normal inspection, full ROM and normal capillary refill; Absent tenderness or edema Back Exam Back exam: Present normal inspection and full ROM; Absent tenderness Neurological Exam Neurological exam: Present alert, oriented X3, CN II-XII intact and normal gait; Absent motor sensory deficit Psychiatric Psychiatric exam: Present normal affect and normal mood Skin Skin exam: Present warm and dry Medical Decision Making Medical Records Medical records reviewed: Yes I reviewed the patient's medical records. Screening: Per USPSTF and CDC recommendations, given the prevalence of disease in our region, it is our hospital?s policy to screen for HIV and viral Hepatitis for all patients aged 18 and over and those with ongoing risk factors. [place] Inquiry Pt receiving controlled substance: No Vital Signs: 08/02/24 20:43 08/02/24 22:55 Temperature 98.5 F 98.5 F Temperature Source Oral Oral Pulse Rate 98 H Pulse Rate [Right] 100 H Respiratory Rate 22 20 Blood Pressure 134/90 Blood Pressure [Right Arm] 135/83 Blood Pressure Mean [Right Arm] 100 02 Sat by Pulse Oximetry 94 L Oxygen Delivery Method Room Air Room Air Lab Data Lab results reviewed: Yes I reviewed the patient's lab results. Lab Results 08/02/24 21:19: WBC 17.9 H, RBC 4.19 L, Hgb 12.4, Hct 36.3 L, MCV 86.6, MCH 29.6, MCHC 34.2, RDW 13.4, Plt Count 366, MPV 9.4, Neut % (Auto) 84.6 H, Lymph % (Auto) 7.2 L, [place] % (Auto) 6.8, Eos % (Auto) 0.6, Baso % (Auto) 0.3, Neut # (Auto) 15.1 H, Lymph # (Auto) 1.3, [place] # (Auto) 1.2 H, Eos # (Auto) 0.1, Baso # (Auto) 0.1, Total Counted 100, Neutrophils % (Manual) 79 H, Lymphocytes % (Manual) 15, Monocytes % (Manual) 5, Eosinophils % (Manual) 1, Platelet Estimate Normal, Hypochromasia 2+, Microcytosis 1+, Target Cells 1+, Sodium 130 L, P otassium 2.7 L*, Chloride 99, Carbon Dioxide 27, Anion Gap 6.7, BUN 3 L, Creatinine 0.60, Estimated Creat Clear 31, Estimated GFR 100, Est GFR ( Amer) 121, Glucose 118 H, Calcium 8.8, Phosphorus 2.5, Magnesium 1.8, Total Bilirubin 0.4, AST 34, ALT 25, Alkaline Phosphatase 111, Total Protein 7.0, Albumin 3.8, Globulin 3.2, Albumin/Globulin Ratio 1.2 08/02/24 21:23: VBG pH 7.48 H, VBG pCO2 35.5, VBG pO2 50.0 H, VBG HCO3 26.0, VBG Total CO2 27.1 H, VBG O2 Saturation 88.0 H, VBG Base Excess 2.6 H, VBG Lactic Acid 1.6, Urine Color Yellow, Urine Appearance Clear, Urine pH 6.0, Ur Specific [place] 1.025, Urine Protein Trace, Urine Glucose (UA) Negative, Urine Ketones Negative, Urine Blood 2+ A, Urine Nitrate Negative, Urine Bilirubin Negative, Urine Urobilinogen 0.2, Ur Leukocyte Esterase Negative, Urine RBC 10-20, Urine WBC Occasional, Ur Squamous Epith Cells 5-10, Urine Bacteria None, SARS-CoV-2 (PCR) Not detected, Influenza A Untype (PCR) Not detected, Influenza Type B (PCR) Not detected 08/02/24 21:19 08/02/24 21:19 Orders (Tests/Meds): ED MEDICATIONS Generic Name Dose Route Start Last Admin Trade Name Freq PRN Reason Stop Dose Admin Potassium Chloride/Water 100 mls @ 100 mls/hr 08/02/24 21:45 08/02/24 23:27 Potassium Chloride 10meq/100ml Ivpb IV 08/02/24 23:44 100 mls/hr Q1H MILLA Administration Discontinued Medications Generic Name Dose Route Start Last Admin Trade Name Reese PRN Reason Stop Dose Admin Acetaminophen 1,000 mg 08/02/24 21:08 08/02/24 21:25 Acetaminophen 1,000mg/100ml Vial IV 08/02/24 21:09 1,000 mg ONCE ONE Administration Albuterol/Ipratropium 9 ml 08/02/24 21:08 08/02/24 21:25 Ipratropium/Albuterol 3 Ml Neb IH 08/02/24 21:09 9 ml ONCE ONE Administration Lactated Ringer's 1,000 mls @ 999 mls/hr 08/02/24 21:45 08/02/24 22:19 Lactated Ringer's 1000 Ml Bag IV 08/02/24 22:45 999 mls/hr .Q1H1M ONE Administration Ketorolac Tromethamine 15 mg 08/02/24 21:08 08/02/24 21:25 Ketorolac 30mg/Ml Vial IV 08/02/24 21:09 15 mg ONCE ONE Administration Potassium Chloride 40 meq 08/02/24 21:45 08/02/24 22:18 Potassium Chloride 20meq Tab PO 08/02/24 21:46 40 meq ONCE ONE Administration ORDERS Category Date Time Status CXR 2 view (NOT portable) [XR chest 2V] Stat Exams 08/02/24 21:08 Completed CBC w/Auto Diff [Complete Blood Count Auto Diff] Stat Lab 08/02/24 21:19 Completed CMP [Comprehensive Metabolic Panel] Stat Lab 08/02/24 21:19 Completed Lactic Acid Stat Lab 08/02/24 22:44 Ordered MAG [Magnesium] Stat Lab 08/02/24 21:19 Completed PHOS [Phosphorous] Stat Lab 08/02/24 21:19 Completed Rapid PCR Covid and Flu A/B Stat Lab 08/02/24 21:23 Completed UA [Urinalysis and Microscopic] Stat Lab 08/02/24 21:23 Completed VBG [Venous Blood Gas] Stat RT 08/02/24 21:23 Completed ECG Data Tracing #1: I reviewed this ECG and interpreted as documented below: Normal sinus rhythm with ventricular rate of 92 bpm. U waves noted in V1 through V3. No acute STEMI. ECG initial impression date: 08/02/24 ECG initial impression time: 10:09 Medical Decision Narrative: In summary, this patient is a 68-year-old female presenting to the Emergency Department for evaluation of fever, cough, shortness of breath as well as continued abdominal pain and diarrhea in the setting of C. difficile. Differential diagnoses considered include but are not limited to failed outpatient treatment of C. difficile, pneumonia, viral upper respiratory infection, respiratory failure, COPD exacerbation. Ruling out the most morbid conditions drove assessment. It should be noted patient's history includes COPD and microscopic colitis which are not at goal therapy. This complicates all aspects of care by increasing patient's risk for morbidity. I reviewed patient's past medical records and noted evaluation here 07/28/2024 for abdominal pain and diarrhea and diagnosis of C. difficile as detailed in HPI. Noted CT scan obtained at that time which was concerning for proctocolitis. I noted positive C. difficile sample. On exam, the patient is sitting upright in no acute distress. She has some left lower quadrant tenderness but no rebound or guarding. She has cough that is productive with wheezing and rhonchi noted bilaterally. She has prolonged expiratory phase but no significant tachypnea or respiratory distress. Oxygen saturation is normal on room air. Overall, vitals are very reassuring and she is nontoxic-appearing. Workup included lab evaluation to evaluate for infectious/metabolic causes of her symptoms, dehydration, electrolyte derangements. Also obtained EKG and chest x-ray given cough and shortness of breath. Patient was given IV Toradol and acetaminophen for symptomatic improvement as well as DuoNebs. I independently interpreted chest x-ray prior to the radiologist read and noted no large focal consolidation concerning for pneumonia. Please see their read for final interpretation. Labs were obtained that demonstrated profound hypokalemia, for which patient was given IV and oral replacement as well as a bolus of IV fluids. She does have U waves noted on EKG. She also has leukocytosis which is worsened from previous evaluation. Lactic acid is normal and vitals are reassuring, so I do not feel that sepsis is likely. Urine is positive for blood but not overtly concerning for infection. On reassessment, patient states that she continues to feel poorly and does not feel comfortable with discharge. Given this, I had an direct discussion with the hospitalist who is admitted here for failed outpatient management of C. difficile, hypokalemia, and COPD exacerbation. Critical Care Critical Care Time Critical Care Time: No
[2024-08-02 21:48] LABS: WBC,Urine Occasional #/hpf (0-3)
[2024-08-02 21:48] LABS: Hypochromasia 2+; Microcytosis 1+; Platelet Estimate Normal; Target Cells 1+
--- NOTE | 2024-08-02 22:07 | ECG_ITS ---
APPROVED REPORT Exam: Resting ECG HR:92 bpm ECG Measurements Heart Rate 92 AXES MO 143 P 73 QRSd 69 QRS 35 QT 285 T 71 QTc 335 Conclusion SINUS RHYTHM NONSPECIFIC T-WAVE ABNORMALITY BORDERLINE ECG Electronically signed by : ANASTASIA EVANS, 08/02/2024 23:39:40
[2024-08-02] MEDS: POTASSIUM CHLORIDE 20MEQ TAB 40 MEQ PO (22:18)
[2024-08-02] MEDS: KCl 10mEq/100ml 100 ML 100 MEQ IV ×2 (22:18→23:27)
[2024-08-02] MEDS: LACTATED RINGERS 1000ML 1,000 ML 999 ML IV (22:19)
[2024-08-02 22:55] VITALS: BP 134/90; PULSE 98; RESP 20; TEMP 36.9; O2SAT 97
--- NOTE | 2024-08-02 23:24 | PC.NURSE ---
Addendum entered by Renetta Wilkinson 08/02/24 23:46: Arrived to floor at 23:42. Original Note: Patient arrived to floor via wheelchair from ED at 23:19.
--- NOTE | 2024-08-02 23:27 | CT_ITS ---
PROCEDURE INFORMATION: Exam: CT Abdomen And Pelvis With Contrast Exam date and time: 08/02/2024 11:34 PM Age: 68 years old Clinical indication: Abdominal pain TECHNIQUE: Imaging protocol: Computed tomography of the abdomen and pelvis with contrast. Radiation optimization: All CT scans at this facility use at least one of these dose optimization techniques: automated exposure control; mA and/or kV adjustment per patient size (includes targeted exams where dose is matched to clinical indication); or iterative reconstruction. Contrast material: ISOVUE; Contrast volume: 75 ml; Contrast route: IV; COMPARISON: CT ABDOMEN PELVIS W CON 07/28/2024 3:57 PM FINDINGS: Liver: Fatty liver infiltration. No mass. Gallbladder and biliary ducts: Normal. No calcified stones. No ductal dilation. Pancreas: Normal. No ductal dilation. Spleen: Normal. No splenomegaly. Adrenal glands: Normal. No mass. Kidneys and ureters: Normal. No hydronephrosis. Stomach and bowel: Diffuse colonic wall thickening and mucosal enhancement from cecum to rectum with mild pericolonic fat stranding. Unremarkable small bowel loops. Unremarkable stomach. Appendix: No evidence of appendicitis. Intraperitoneal space: Unremarkable. No free air. No significant fluid collection. Vasculature: Atherosclerotic calcification of aortoiliac arteries with infrarenal abdominal aortic segment measuring up to 3.7 cm. Lymph nodes: Unremarkable. No enlarged lymph nodes. Urinary bladder: Unremarkable as visualized. Reproductive: Unremarkable as visualized. Bones/joints: Stable L5 on S1 anterolisthesis. Chronic bilateral L5 pars interarticularis defects. No acute fracture. No acute osseous findings. Soft tissues: Unremarkable. Other findings: Mild pericystic fat stranding. IMPRESSION: 1. Non diverticular infectious/inflammatory pancolitis including from C difficile colitis. 2. Stable infrarenal abdominal aortic aneurysm. 3. Hepatomegaly.
[2024-08-02] MEDS: IOPAMIDOL-370 (76%);100ML BOTTLE 75 ML IV (23:41)
[2024-08-02] MEDS: SODIUM CHLORIDE 0.9% 10ML SYR (RAD ONLY) 10 ML IV (23:41)
[2024-08-02 23:42] VITALS: BP 153/75; PULSE 88; RESP 16; TEMP 36.7; O2SAT 99
[2024-08-03] VITALS (13 sets, daily range): BP systolic 122–153; BP diastolic 62–84; PULSE 80–117; RESP 18–24; TEMP 36.7–36.9; O2SAT 88–99; BMI 15.7
--- NOTE | 2024-08-03 00:21 | EXP.HP ---
History of Present Illness *Admission Date: 08/02/24 *Reason for visit:: Shortness of breath, diarrhea *History of present illness: This is a 68-year-old female with a past medical history of COPD, recurrent colitis, current C. difficile infection who presents emergency department today with complaints of fever, cough, shortness of breath and diarrhea. She reports abdominal pain and diarrhea that has been ongoing since 07/28/2024. She was able to send a C. difficile sample in on 07 30 which was positive for C. difficile. She reports being on oral vancomycin since then but has had continued diarrhea. States that she also has had worsening shortness of breath above her baseline with COPD. Does endorse worsening abdominal pain intermittently, but reports pain-free at other times. She also endorse cough with thick sputum. Emergency department workup notable for worsening leukocytosis with a white blood cell count of 17. Potassium of 2.7. Chest x-ray without evidence of infection. Given the above-mentioned symptoms, she will be admitted to the hospitalist service. [facility] Disclaimer: The information contained in this section may have been updated after the patient was seen, as this information can be updated by other users. 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 Strep sore throat Otitis media of right ear Sinusitis Low back pain Muscle spasm Back pain Upper respiratory infection Acute viral syndrome Bronchitis Dyspnea Allergy to sulfa drugs Itching Migraine Otitis media Viral syndrome COPD exacerbation Exposure to COVID-19 virus Viral syndrome Syncope and collapse Abdominal pain Fatigue COPD exacerbation Chest pain Lumbar radiculopathy Viral upper respiratory illness Skin problem Surgical History Hx of fusion of cervical spine H/O tubal ligation Family History Father Coronary artery disease Mother Cancer Sister Cancer Sister Cancer Hypertension Son Hyperlipidemia 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 (Updated 08/03/24 @ 01:33 by Radhika Au RN) Smoking Status: Current every day smoker tobacco type: cigarettes packs per day: 1 years smoked: 30 alcohol intake: never current occupational status: retired Travel in the last 8 weeks: None caffeine: Yes Other 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 Have you received the Flu Vaccine for this season: No Have you received the Pneumonia Vaccine: No Review of Systems Review of Systems Review of systems:: pertinent systems reviewed and negative unless documented below Review of systems (narrative): Negative except for HPI Meds Home Medications and Allergies Home Medications ?Medication ?Instructions ?Recorded ?Confirmed ?Type cyclobenzaprine 10 mg tablet 10 mg PO HSP PRN muscle spasms 05/07/24 08/03/24 History vancomycin 125 mg capsule 125 mg PO QID 10 days #40 caps 07/30/24 08/03/24 Rx albuterol sulfate 90 mcg/actuation 2 puff inhalation Q6 wheezing 08/03/24 08/03/24 History aerosol inhaler budesonide 3 mg 9 mg PO DAILY 08/03/24 08/03/24 History capsule,delayed,extended release New Prescriptions to Start Prescriptions: Allergies Allergy/AdvReac Type Severity Reaction Status Date / Time Sulfa (Sulfonamide Allergy Mild rash Verified 05/07/24 11:27 Antibiotics) methocarbamol (From Robaxin) Allergy Unknown Verified 05/07/24 11:27 allergy reaction Penicillins Allergy Unknown Verified 05/07/24 11:27 allergy reaction methylprednisolone AdvReac Unknown Verified 05/07/24 11:27 allergy reaction Exam Data for Last 24 hours Vital signs and Labs for Last 24 Hours: Temp Pulse Resp BP Pulse Ox O2 Del Method 98.5 F 98 H 20 134/90 94 L Room Air 08/02/24 22:55 08/02/24 22:55 08/02/24 22:55 08/02/24 22:55 08/02/24 20:43 08/02/24 22:55 Laboratory Results - last 24 hr 08/02/24 21:19: WBC 17.9 H, RBC 4.19 L, Hgb 12.4, Hct 36.3 L, MCV 86.6, MCH 29.6, MCHC 34.2, RDW 13.4, Plt Count 366, MPV 9.4, Neut % (Auto) 84.6 H, Lymph % (Auto) 7.2 L, [place] % (Auto) 6.8, Eos % (Auto) 0.6, Baso % (Auto) 0.3, Neut # (Auto) 15.1 H, Lymph # (Auto) 1.3, [place] # (Auto) 1.2 H, Eos # (Auto) 0.1, Baso # (Auto) 0.1, Total Counted 100, Neutrophils % (Manual) 79 H, Lymphocytes % (Manual) 15, Monocytes % (Manual) 5, Eosinophils % (Manual) 1, Platelet Estimate Normal, Hypochromasia 2+, Microcytosis 1+, Target Cells 1+, Sodium 130 L, Potassium 2.7 L*, Chloride 99, Carbon Dioxide 27, Anion Gap 6.7, BUN 3 L, Creatinine 0.60, Estimated Creat Clear 31, Estimated GFR 100, Est GFR ( Amer) 121, Glucose 118 H, Calcium 8.8, Phosphorus 2.5, Magnesium 1.8, Total Bilirubin 0.4, AST 34, ALT 25, Alkaline Phosphatase 111, Total Protein 7.0, Albumin 3.8, Globulin 3.2, Albumin/Globulin Ratio 1.2 08/02/24 21:23: VBG pH 7.48 H, VBG pCO2 35.5, VBG pO2 50.0 H, VBG HCO3 26.0, VBG Total CO2 27.1 H, VBG O2 Saturation 88.0 H, VBG Base Excess 2.6 H, VBG Lactic Acid 1.6, Urine Color Yellow, Urine Appearance Clear, Urine pH 6.0, Ur Specific [place] 1.025, Urine Protein Trace, Urine Glucose (UA) Negative, Urine Ketones Negative, Urine Blood 2+ A, Urine Nitrate Negative, Urine Bilirubin Negative, Urine Urobilinogen 0.2, Ur Leukocyte Esterase Negative, Urine RBC 10-20, Urine WBC Occasional, Ur Squamous Epith Cells 5-10, Urine Bacteria None, SARS-CoV-2 (PCR) Not detected, Influenza A Untype (PCR) Not detected, Influenza Type B (PCR) Not detected I & O for Last 24 hours: Intake & Output 07/31/24 08/01/24 08/02/24 08/03/24 23:59 23:59 23:59 23:59 Weight 36.287 kg Constitutional Constitutional: no acute distress *Routine HEENT Exam Head: Present normocephalic Eye: Present EOMI and PERRL ENT: Present mucous membranes moist *Routine Neck Exam Neck: Present supple; Absent lymphadenopathy *Routine Respiratory Exam Respiratory: Present prolonged expiratory phase and wheezes *Routine Cardiovascular Exam Cardiovascular: Present RRR *Routine Abdominal Exam Abdominal: Present soft and normoactive bowel sounds; Absent tenderness *Routine Rectal Exam Rectal:: deferred *Routine Genitalia Exam Genitalia:: deferred *Routine Extremities Exam Extremities: Absent cyanosis, clubbing or edema *Routine Skin Exam Skin: Present warm; Absent rash *Routine Neurological Exam Neurological: Present alert and oriented X3 Assessment and Plan *Assessment and plan (1) Acute exacerbation of chronic obstructive pulmonary disease: Status: Acute Category: Medical Code(s): J44.1 - Chronic obstructive pulmonary disease with (acute) exacerbation (2) C. difficile colitis: Status: Acute Category: Medical Code(s): A04.72 - Enterocolitis due to Clostridium difficile, not specified as recurrent (3) Diarrhea: Status: Acute Qualifiers: Diarrhea type: unspecified type Qualified Code(s): R19.7 - Diarrhea, unspecified Category: Medical Code(s): R19.7 - Diarrhea, unspecified (4) Hypokalemia: Status: Acute Category: Medical Code(s): E87.6 - Hypokalemia Plan #Acute exacerbation of COPD. Mild wheezing noted. Continue scheduled bronchodilators Continue corticosteroids Initiate doxycycline Pulmonary toilet Tobacco cessation education #Hypokalemia Likely secondary to continued diarrhea given C. difficile infection Continue replacement protocol Mag and Phos phosphorus within normal limits #C. difficile colitis #Diarrhea Patient reports recurrent history of microscopic colitis Per CT scan with proctocolitis. Given increased white blood cell count and continued abdominal pain, repeat CT scan obtained. Repeat CT scan notable for inflammatory/infectious pancolitis Does not appear toxic at this time. Will continue oral Vanco, low threshold to escalate antibiotics. Abdomen benign, nonperitonitic. Patient ambulatory in no distress. Rounded on patient after nurse practitioner. Personally examined and interviewed patient. Agree with exam findings and care plan as documented.
[2024-08-03 00:26] LABS: Lactic Acid 0.9 mmol/L (0.7-2.1)
[2024-08-03] MEDS: 0.9 % SODIUM CHLORIDE 1000ML 1,000 ML 75 ML IV (02:45)
[2024-08-03] MEDS: IPRATROPIUM/ALBUTEROL 3 ML NEB IH ×5 (06:10→23:36)
[2024-08-03 06:21] LABS: Basophils # 0.1 K/mm3 (0-0.2); Basophils % 0.3 % (0.1-2.0); Eosinophils # 0.1 K/mm3 (0.0-0.4); Eosinophils % 0.5 % (0.1-12.0); Hemoglobin 11.5 g/dL (12.2-16.2); Lymphocytes # 1.2 K/mm3 (0.7-4.5); Lymphocytes % 6.6 % (10-50); Mean Corpuscular HGB Conc 33.8 g/dL (31.8-35.4); Mean Corpuscular Hemoglobin 29.8 pg (27.0-31.2); Mean Corpuscular Volume 88.1 fl (81-99); Mean Platelet Volume 9.1 fl (7.4-10.4); Monocytes # 1.2 K/mm3 (0.1-1.0); Monocytes % 6.8 % (1.7-9.3); Neutrophils # 14.9 K/mm3 (1.8-7.8); Neutrophils % 85.3 % (37.0-80.0); Platelet Count 339 K/mm3 (142-424); Red Blood Count 3.86 M/mm3 (4.20-5.40); Red Cell Distribution Width 13.6 % (11.5-17.5); White Blood Count 17.5 K/mm3 (4.8-10.8)
[2024-08-03 06:36] LABS: MANUAL DIFFERENTIAL MANUAL DIFFERENTIAL (MANUAL DIFF)
[2024-08-03 06:43] LABS: Anion Gap 11.5 mEq/L (5-15); Blood Urea Nitrogen 3 mg/dl (7-17); Calcium 8.2 mg/dl (8.4-10.2); Carbon Dioxide 24 mmol/L (22.0-30.0); Chloride 103 mmol/L (98-107); Creatinine Clearance Estimated 31 mL/min (50-200); Estimated Glomerular Filt Rate 100 ml/min (>60); GFR (African American) 121 ML/MIN (>60); Glucose 103 mg/dl (74-100); Potassium 3.5 mmoL/L (3.5-5.1); Sodium 135 mmol/L (136-145)
--- NOTE | 2024-08-03 07:02 | PC.NURSE ---
Pt. was admitted overnight for c-diff , COPD excerbation. Pt. is alert and orientated x 4. Pt. on 2 liters oxygen per [place]. Pt. SOA with walking to and from bathroom. IVF infusing. Pt. denies any abdominal pain when admitted to floor Pt. getting Potassium IV for low potassium level. Pt. to bathroom several times for diarrhea. SCD's in place. PT. NSR on monitor. VSS. personal items and call jules in reach.
[2024-08-03 07:41] LABS: Lymphocytes % 13 % (10-50); Monocytes % 2 % (2-9); Neutrophils % 85 % (42-76); Platelet Estimate Normal; RBC Morphology Normal; Total Cells Counted 100
--- NOTE | 2024-08-03 07:42 | HMH.PHAINT1 ---
Pharmacy Intervention Comments: home medication list verified using list from outpatient pharmacy and pt interview
[2024-08-03 07:54] LABS: Adenovirus F 40/41, stool Not Detected (NotDetected); Astrovirus Not Detected (NotDetected); Campylobacter Not Detected (NotDetected); Cryptosporidium Not Detected (NotDetected); Cyclospora Cayetanesis Not Detected (NotDetected); Entamoeba histolytica Not Detected (NotDetected); Enteroaggregative E coli Not Detected (NotDetected); Enteropathogenic E coli Not Detected (NotDetected); Enterotoxigenic E coli Not Detected (NotDetected); Giardia lamblia Not Detected (NotDetected); Norovirus Not Detected (NotDetected); Plesimonas Shigalloides, PCR Not Detected (NotDetected); Rotavirus A Not Detected (NotDetected); Salmonella, PCR Not Detected (NotDetected); Sapovirus Not Detected (NotDetected); Shiga-like toxin E coli Not Detected (NotDetected); Shigella Enterovasive E coli Not Detected (NotDetected); Vibrio Cholerae Not Detected (NotDetected); Vibrio, PCR Not Detected (NotDetected); Yersinia Entercolitica, PCR Not Detected (NotDetected)
[2024-08-03] MEDS: VANCOMYCIN HCL 50MG/ML 150ML KIT 125 MG PO ×4 (09:42→20:24)
[2024-08-03 10:57] LABS: Clostridium Difficile A/B, PCR Detected (NotDetected)
--- NOTE | 2024-08-03 11:21 | PC.NURSE ---
pt's o2 sat is 88% on room air while walking back from the bathroom
[2024-08-03] MEDS: LEVOFLOXACIN/D5W 500 MG/100 ML PIGGYBACK 100 MG IV (11:44)
[2024-08-03] MEDS: predniSONE 20MG TAB 40 MG PO (11:45)
[2024-08-03] MEDS: ACETAMINOPHEN 325MG TAB 650 MG PO (16:48)
[2024-08-03] MEDS: BUDESONIDE 0.5MG/2ML NEB 0.5 MG IH (17:18)
--- NOTE | 2024-08-03 18:15 | PC.NURSE ---
PT HAS DONE FAIR THIS SHIFT. SHE DID HAVE AN EPISODE AROUND LUNCH TIME WHERE SHE WAS VERY SHORT OF BREATH AND ANXIOUS. NEBS CHANGED. PT REPORTS THAT SHE DOES FEEL BETTER. SHE STILL DOES ENDORSE THAT SHE IS ANXIOUS. VSS. REMAINS ON 2L NASAL CANNULA AND IS SATING IN THE MID 90'S. LUNGS ARE DIMINISHED.
--- NOTE | 2024-08-03 21:18 | EXP.ACUTE.PN ---
Subjective *Date: 08/03/24 *Time: 12:12 Interval history: Patient still quite short of breath. Desatted to 78% on room air. Requiring 2 to 3 L. Requesting breathing treatments quite frequently. Afebrile. No nausea or vomiting. Slowing diarrhea and abdominal discomfort. Encourage patient to take antibiotics and steroids. She is concerned it will cause problems with her C. difficile. Stressed that she needed medication for her COPD exacerbation. Having significantly productive cough with thick sputum Medical Exam Vital signs and Labs for Last 24 Hours: Vital Signs Temp Pulse Pulse Resp BP BP Pulse Ox 08/03/24 20:00 98.1 F 93 H 20 134/79 98 08/03/24 18:42 08/03/24 17:19 93 H 08/03/24 17:19 98 H 08/03/24 17:19 98 08/03/24 17:00 08/03/24 16:00 98.2 F 97 H 18 122/69 96 08/03/24 16:00 100 H 08/03/24 15:00 08/03/24 13:37 106 H 08/03/24 13:37 108 H 08/03/24 12:53 08/03/24 12:45 106 H 08/03/24 12:45 117 H 08/03/24 12:45 99 08/03/24 12:00 110 H 08/03/24 12:00 98.4 F 106 H 22 94 L 08/03/24 11:00 08/03/24 10:45 88 L 08/03/24 09:00 08/03/24 08:00 08/03/24 08:00 90 08/03/24 08:00 98.2 F 98 H 20 144/84 H 96 08/03/24 07:00 08/03/24 06:11 96 H 08/03/24 06:11 100 H 08/03/24 06:11 98 08/03/24 05:00 08/03/24 04:00 98.5 F 86 24 132/62 98 08/03/24 04:00 80 08/03/24 03:00 08/03/24 01:00 08/03/24 00:15 100 H 08/03/24 00:00 98.0 F 88 24 153/75 H 99 08/02/24 23:45 08/02/24 23:42 98.0 F 88 16 153/75 H 99 08/02/24 22:55 98.5 F 98 H 20 134/90 O2 Del Method O2 Flow Rate 08/03/24 20:00 Room Air 08/03/24 18:42 Nasal Cannula 2 08/03/24 17:19 08/03/24 17:19 08/03/24 17:19 Nasal Cannula 2 08/03/24 17:00 Nasal Cannula 2 08/03/24 16:00 Nasal Cannula 2 08/03/24 16:00 08/03/24 15:00 Nasal Cannula 2 08/03/24 13:37 08/03/24 13:37 08/03/24 12:53 Nasal Cannula 2 08/03/24 12:45 08/03/24 12:45 08/03/24 12:45 Nasal Cannula 2 08/03/24 12:00 08/03/24 12:00 Nasal Cannula 2 08/03/24 11:00 Nasal Cannula 2 08/03/24 10:45 Room Air 08/03/24 09:00 Nasal Cannula 2 08/03/24 08:00 Nasal Cannula 2 08/03/24 08:00 08/03/24 08:00 Nasal Cannula 2 08/03/24 07:00 Nasal Cannula 2 08/03/24 06:11 08/03/24 06:11 08/03/24 06:11 Nasal Cannula 2 08/03/24 05:00 Nasal Cannula 2 08/03/24 04:00 Nasal Cannula 2 08/03/24 04:00 08/03/24 03:00 Nasal Cannula 2 08/03/24 01:00 Nasal Cannula 2 08/03/24 00:15 08/03/24 00:00 Nasal Cannula 2 08/02/24 23:45 Nasal Cannula 2 08/02/24 23:42 Nasal Cannula 08/02/24 22:55 Room Air Intake and Output 08/03/24 08/03/24 08/03/24 07:59 15:59 23:59 Intake Total 420 / 660 240 / 660 Output Total 0 / 0 0 / 0 0 / 0 Balance 0 / 660 420 / 660 240 / 660 Intake: Intake, Oral Amount 420 / 660 240 / 660 Output: Output, Urine Amount 0 / 0 0 / 0 0 / 0 Other: Number of Unmeasured Voids 1 1 1 Number of Bowel Movements 1 1 Weight 36.287 kg Patient Weight 08/03/24 23:59 Weight 36.287 kg Laboratory Results - last 24 hr 08/02/24 21:19: WBC 17.9 H, RBC 4.19 L, Hgb 12.4, Hct 36.3 L, MCV 86.6, MCH 29.6, MCHC 34.2, RDW 13.4, Plt Count 366, MPV 9.4, Neut % (Auto) 84.6 H, Lymph % (Auto) 7.2 L, [place] % (Auto) 6.8, Eos % (Auto) 0.6, Baso % (Auto) 0.3, Neut # (Auto) 15.1 H, Lymph # (Auto) 1.3, [place] # (Auto) 1.2 H, Eos # (Auto) 0.1, Baso # (Auto) 0.1, Total Counted 100, Neutrophils % (Manual) 79 H, Lymphocytes % (Manual) 15, Monocytes % (Manual) 5, Eosinophils % (Manual) 1, Platelet Estimate Normal, Hypochromasia 2+, Microcytosis 1+, Target Cells 1+, Sodium 130 L, Potassium 2.7 L*, Chloride 99, Carbon Dioxide 27, Anion Gap 6.7, BUN 3 L, Creatinine 0.60, Estimated Creat Clear 31, Estimated GFR 100, Est GFR ( Amer) 121, Glucose 118 H, Calcium 8.8, Phosphorus 2.5, Magnesium 1.8, Total Bilirubin 0.4, AST 34, ALT 25, Alkaline Phosphatase 111, Total Protein 7.0, Albumin 3.8, Globulin 3.2, Albumin/Globulin Ratio 1.2 08/02/24 21:23: VBG pH 7.48 H, VBG pCO2 35.5, VBG pO2 50.0 H, VBG HCO3 26.0, VBG Total CO2 27.1 H, VBG O2 Saturation 88.0 H, VBG Base Excess 2.6 H, VBG Lactic Acid 1.6, Urine Color Yellow, Urine Appearance Clear, Urine pH 6.0, Ur Specific [place] 1.025, Urine Protein Trace, Urine Glucose (UA) Negative, Urine Ketones Negative, Urine Blood 2+ A, Urine Nitrate Negative, Urine Bilirubin Negative, Urine Urobilinogen 0.2, Ur Leukocyte Esterase Negative, Urine RBC 10-20, Urine WBC Occasional, Ur Squamous Epith Cells 5-10, Urine Bacteria None, SARS-CoV-2 (PCR) Not detected, Influenza A Untype (PCR) Not detected, Influenza Type B (PCR) Not detected 08/03/24 00:00: Lactate 0.9 08/03/24 05:44: WBC 17.5 H, RBC 3.86 L, Hgb 11.5 L, Hct 34.0 L, MCV 88.1, MCH 29.8, MCHC 33.8, RDW 13.6, Plt Count 339, MPV 9.1, Neut % (Auto) 85.3 H, Lymph % (Auto) 6.6 L, [place] % (Auto) 6.8, Eos % (Auto) 0.5, Baso % (Auto) 0.3, Neut # (Auto) 14.9 H, Lymph # (Auto) 1.2, [place] # (Auto) 1.2 H, Eos # (Auto) 0.1, Baso # (Auto) 0.1, Total Counted 100, Neutrophils % (Manual) 85 H, Lymphocytes % (Manual) 13, Monocytes % (Manual) 2, Platelet Estimate Normal, RBC Morphology Normal, Sodium 135 L, Potassium 3.5 D, Chloride 103, Carbon Dioxide 24, Anion Gap 11.5, BUN 3 L, Creatinine 0.60, Estimated Creat Clear 31, Estimated GFR 100, Est GFR ( Amer) 121, Glucose 103 H, Calcium 8.2 L 08/03/24 07:50: Stl Aeromonas (PCR) Not detected, Stl C. cayetanensis PCR Not detected, Stool Rotavirus (PCR) Not detected, Stl Adenov F 40/41 PCR Not detected, Stool Astrovirus (PCR) Not detected, Stool Campylobacter PCR Not detected, Stl C.difficile Tox PCR Detected A, Stool Cryptosporidium PCR Not detected, Stl E.coli Shiga Tox PCR Not detected, Stool E coli O157 PCR Not detected, Stl Enterotoxigenic E PCR Not detected, Stool EPEC (PCR) Not detected, Stool EAEC (PCR) Not detected, Stl E. histolytica PCR Not detected, Stool Giardia Lamblia PCR Not detected, Stool Salmonella PCR Not detected, Stool Sapovirus (PCR) Not detected, Stl P. shigelloides PCR Not detected, Stl Shigella/EIEC PCR Not detected, St Y.enterocolitica PCR Not detected, Stool Vibrio (PCR) Not detected, Stl Vibrio cholerae PCR Not detected, Stl Norovirus GI/GII PCR Not detected I & O for Labs for Last 24 Hours: Intake & Output 07/31/24 08/01/24 08/02/24 08/03/24 23:59 23:59 23:59 23:59 Intake Total 660 / 660 Output Total 0 / 0 Balance 660 / 660 Weight 36.287 kg 36.287 kg Microbiology Reports for the Last 24 Hours: Microbiology 08/03/24 09:50 Sputum - Expectorated Sputum Gram Stain - Final Constitutional: Present mild distress, thin, chronically ill appearing and cooperative Head: Present atraumatic and normocephalic ENT: Present normal exam Respiratory: Present accessory muscle use, prolonged expiratory phase, rhonchi and wheezes; Absent crackles or normal respiratory effort Cardiac: Present Regular Rhythm and Tachycardia GI: Present soft and normal bowel sounds; Absent distention or tenderness Extremities: Present normal inspection and full ROM Skin: Present intact; Absent erythema Neuro: Present Grossly Intact, alert, awake, oriented x 3 and moves all extremities Assessment and Plan *Assessment and plan (1) Acute exacerbation of chronic obstructive pulmonary disease: Status: Acute Category: Medical Code(s): J44.1 - Chronic obstructive pulmonary disease with (acute) exacerbation (2) C. 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 difficile. Initiated on antibiotics and steroids for COPD exacerbation. Continues to require oxygen. Monitor for improvement over the next 1 to 2 days. Problems addressed as follows: #Acute exacerbation of COPD. Continue DuoNebs every 6 hours scheduled, available every 4 as needed in between. Continue supplemental oxygen as needed, goal sats greater than 90%. Currently on 3 L Initiate Levaquin 750 mg daily for COPD exacerbation, will plan to complete 5 days. Initiate prednisone 40 mg daily for 5 days. Pulmonary toilet Tobacco cessation education White count 17.5, suspect secondary to COPD exacerbation, steroids, C. difficile. #Hypokalemia Likely secondary to continued diarrhea given C. difficile infection Continue replacement protocol Potassium 3.5 this morning. BUN 3, creatinine 0.6. Repeat CBC, CMP, magnesium ordered for the morning. #C. difficile colitis #Diarrhea Patient reports recurrent history of microscopic colitis Per CT scan with proctocolitis. Given increased white blood cell count and continued abdominal pain, repeat CT scan obtained. Repeat CT scan notable for inflammatory/infectious pancolitis Repeat stool continues to be positive for C. difficile. Continue vancomycin 125 mg 4 times a day for 10 days starting on day of admission. Abdomen benign, nonperitonitic. Patient ambulatory Resume Flexeril 10 mg nightly as needed per patient request to help her relax and sleep. Full code Regular diet
[2024-08-04] VITALS (9 sets, daily range): BP systolic 124–150; BP diastolic 71–97; PULSE 90–100; RESP 19–22; TEMP 36.4–36.8; O2SAT 94–100; BMI 15.7
[2024-08-04 06:17] LABS: Basophils # 0.1 K/mm3 (0-0.2); Basophils % 0.2 % (0.1-2.0); Hematocrit 30.5 % (37.0-47.0); Hemoglobin 10.5 g/dL (12.2-16.2); Lymphocytes # 1.2 K/mm3 (0.7-4.5); Lymphocytes % 5.6 % (10-50); Mean Corpuscular HGB Conc 34.4 g/dL (31.8-35.4); Mean Corpuscular Hemoglobin 29.7 pg (27.0-31.2); Mean Corpuscular Volume 86.4 fl (81-99); Mean Platelet Volume 9.1 fl (7.4-10.4); Monocytes % 4.8 % (1.7-9.3); Neutrophils # 18.9 K/mm3 (1.8-7.8); Neutrophils % 88.7 % (37.0-80.0); Platelet Count 342 K/mm3 (142-424); Red Blood Count 3.53 M/mm3 (4.20-5.40); Red Cell Distribution Width 13.4 % (11.5-17.5); White Blood Count 21.2 K/mm3 (4.8-10.8)
[2024-08-04] MEDS: IPRATROPIUM/ALBUTEROL 3 ML NEB IH ×2 (06:17→13:54)
[2024-08-04] MEDS: BUDESONIDE 0.5MG/2ML NEB 0.5 MG IH (06:17)
[2024-08-04 06:23] LABS: MANUAL DIFFERENTIAL MANUAL DIFFERENTIAL (MANUAL DIFF)
[2024-08-04] MEDS: IBUPROFEN 600 MG TABLET PO (06:30)
[2024-08-04 06:31] LABS: Alanine Aminotransferase 22 U/L (12-78); Albumin Level 3.2 g/dl (3.5-5.0); Albumin/Globulin Ratio 1.1 (1.1-1.8); Alkaline Phosphatase 104 U/L (38-126); Anion Gap 11.2 mEq/L (5-15); Aspartate Amino Transferase 34 U/L (14-36); Bilirubin,Total 0.2 mg/dl (0.2-1.3); Blood Urea Nitrogen 7 mg/dl (7-17); Calcium 8.3 mg/dl (8.4-10.2); Carbon Dioxide 24 mmol/L (22.0-30.0); Chloride 104 mmol/L (98-107); Creatinine Clearance Estimated 31 mL/min (50-200); Estimated Glomerular Filt Rate 100 ml/min (>60); GFR (African American) 121 ML/MIN (>60); Globulin 2.9 g/dL (1.3-3.2); Glucose 107 mg/dl (74-100); Magnesium 2.1 mg/dl (1.6-2.3); Potassium 3.2 mmoL/L (3.5-5.1); Sodium 136 mmol/L (136-145); Total Protein,Serum 6.1 g/dl (6.3-8.2)
[2024-08-04 07:48] LABS: Lymphocytes % 11 % (10-50); Monocytes % 1 % (2-9); Neutrophils % 88 % (42-76); Platelet Estimate Normal; RBC Morphology Normal; Total Cells Counted 100
[2024-08-04] MEDS: VANCOMYCIN HCL 50MG/ML 150ML KIT 125 MG PO ×2 (08:24→13:34)
[2024-08-04] MEDS: predniSONE 20MG TAB 40 MG PO (08:24)
[2024-08-04] MEDS: LEVOFLOXACIN/D5W 250 MG/50 ML PIGGYBACK 100 MG IV (10:50)
--- NOTE | 2024-08-04 12:20 | PC.NURSE ---
pt in 94% on room air while at rest
--- NOTE | 2024-08-04 13:12 | EXP.DC.SUM ---
General Admission date:: 08/02/24 Discharge date: 08/04/24 HPI HPI HPI: This is a 68-year-old female with a past medical history of COPD, recurrent colitis, current C. difficile infection who presents emergency department today with complaints of fever, cough, shortness of breath and diarrhea. She reports abdominal pain and diarrhea that has been ongoing since 07/28/2024. She was able to send a C. difficile sample in on 07 30 which was positive for C. difficile. She reports being on oral vancomycin since then but has had continued diarrhea. States that she also has had worsening shortness of breath above her baseline with COPD. Does endorse worsening abdominal pain intermittently, but reports pain-free at other times. She also endorse cough with thick sputum. Emergency department workup notable for worsening leukocytosis with a white blood cell count of 17. Potassium of 2.7. Chest x-ray without evidence of infection. Given the above-mentioned symptoms, she will be admitted to the hospitalist service. Hospital Course Hospital Course Hospital Course: 68-year-old female with COPD exacerbation, new oxygen requirement, persistent C. difficile. Initiated on antibiotics and steroids for COPD exacerbation. Showing improvement. Weaned to room air by day of discharge with no oxygen requirement. Ambulating without desaturation. Stable discharge home to complete antibiotics for COPD exacerbation and C. difficile. Referred to pulmonology as an outpatient to establish care for COPD. Problems addressed as follows: #Acute exacerbation of COPD. Patient initiated on antibiotics and steroids along with oxygen for COPD exacerbation. Continue nebulizer during admission. Prescribed nebulizer at discharge to continue DuoNebs. Transitioned to Levaquin 750 mg. Plan to complete 5 days total. Sputum culture growing gram-negative rods. Continue steroids for 5 days with prednisone 40 mg daily for COPD exacerbation. Discussed importance of tobacco cessation. Nicotine patches sent at discharge. White count remained elevated however in light of her C. difficile infection and steroid use, anticipated will improve in time. Patient clinically improving and weaned to room air. Continue aggressive pulmonary toilet. 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 Would benefit from seeing pulmonology. Refer to discharge. #Hypokalemia Likely secondary to continued diarrhea given C. difficile infection. Continue replacement. Potassium 3.2-3.5 during admission. Anticipate improvement with treatment of C. difficile and resolution of diarrhea. #C. difficile colitis #Diarrhea Patient reports recurrent history of microscopic colitis . Per CT scan with proctocolitis. Given increased white blood cell count and continued abdominal pain, repeat CT scan obtained. Repeat CT scan notable for inflammatory/infectious pancolitis. Repeat stool continues to be positive for C. difficile. Continue vancomycin 125 mg 4 times a day for 10 days starting on day of admission. Abdomen benign, nonperitonitic. Patient ambulatory Resume Flexeril 10 mg nightly as needed per patient request to help her relax and sleep. Total time spent on discharge 35 minutes in counseling, documentation, chart review, and direct care with patient. Exam Data for Last 24 hours Vital signs and Labs for Last 24 Hours: Temp Pulse Resp BP Pulse Ox O2 Del Method O2 Flow Rate 97.8 F 90 20 149/97 H 94 L Room Air 2 08/04/24 12:00 08/04/24 12:00 08/04/24 12:00 08/04/24 12:00 08/04/24 12:19 08/04/24 12:19 08/04/24 12:00 Laboratory Results - last 24 hr 08/04/24 05:56: WBC 21.2 H*, RBC 3.53 L, Hgb 10.5 L, Hct 30.5 L, MCV 86.4, MCH 29.7, MCHC 34.4, RDW 13.4, Plt Count 342, MPV 9.1, Neut % (Auto) 88.7 H, Lymph % (Auto) 5.6 L, [place] % (Auto) 4.8, Eos % (Auto) 0.0 L, Baso % (Auto) 0.2, Neut # (Auto) 18.9 H, Lymph # (Auto) 1.2, [place] # (Auto) 1.0, Eos # (Auto) 0.0, Baso # (Auto) 0.1, Total Counted 100, Neutrophils % (Manual) 88 H, Lymphocytes % (Manual) 11, Monocytes % (Manual) 1 L, Platelet Estimate Normal, RBC Morphology Normal, Sodium 136, Potassium 3.2 L, Chloride 104, Carbon Dioxide 24, Anion Gap 11.2, BUN 7 D, Creatinine 0.60, Estimated Creat Clear 31, Estimated GFR 100, Est GFR ( Amer) 121, Glucose 107 H, Calcium 8.3 L, Magnesium 2.1 D, Total Bilirubin 0.2, AST 34, ALT 22, Alkaline Phosphatase 104, Total Protein 6.1 L, Albumin 3.2 L D, Globulin 2.9, Albumin/Globulin Ratio 1.1 I & O for Last 24 hours: Intake & Output 08/01/24 08/02/24 08/03/24 08/04/24 23:59 23:59 23:59 23:59 Intake Total 660 / 660 120 / 120 Output Total 0 / 0 Balance 660 / 660 120 / 120 Weight 36.287 kg 36.287 kg 36.287 kg Microbiology Reports for the Last 24 Hours: Microbiology 08/03/24 09:50 Sputum - Expectorated Sputum Gram Stain - Final 08/03/24 09:50 Sputum - Expectorated Sputum Sputum Culture - Preliminary Constitutional Constitutional: no acute distress, cachectic, chronically ill appearing and cooperative *Routine HEENT Exam Head: Present normocephalic Eye: Present EOMI and PERRL ENT: Present mucous membranes moist *Routine Neck Exam Neck: Present supple; Absent lymphadenopathy *Routine Respiratory Exam Respiratory: Present prolonged expiratory phase and wheezes; Absent rhonchi or crackles *Routine Cardiovascular Exam Cardiovascular: Present RRR *Routine Abdominal Exam Abdominal: Present soft and normoactive bowel sounds; Absent tenderness *Routine Rectal Exam Patient deferred: visual exam *Routine Exam Patient deferred: external exam *Routine Extremities Exam Extremities: Absent cyanosis, clubbing or edema Comments: sarcopenia *Routine Skin Exam Skin: Present warm; Absent rash *Routine Neurological Exam Neurological: Present alert, oriented X3 and moving all extremities; Absent altered mental status Results Data Completed and Pending Labs on day of discharge: Labs from last 24 hours 08/04/24 05:56 WBC 21.2 H* RBC 3.53 L Hgb 10.5 L Hct 30.5 L MCV 86.4 MCH 29.7 MCHC 34.4 RDW 13.4 Plt Count 342 MPV 9.1 Neut % (Auto) 88.7 H Lymph % (Auto) 5.6 L [place] % (Auto) 4.8 Eos % (Auto) 0.0 L Baso % (Auto) 0.2 Neut # (Auto) 18.9 H Lymph # (Auto) 1.2 [place] # (Auto) 1.0 Eos # (Auto) 0.0 Baso # (Auto) 0.1 Total Counted 100 Neutrophils % (Manual) 88 H Lymphocytes % (Manual) 11 Monocytes % (Manual) 1 L Platelet Estimate Normal RBC Morphology Normal Sodium 136 Potassium 3.2 L Chloride 104 Carbon Dioxide 24 Anion Gap 11.2 BUN 7 D Creatinine 0.60 Estimated Creat Clear 31 Estimated GFR 100 Est GFR ( Amer) 121 Glucose 107 H Calcium 8.3 L Magnesium 2.1 D Total Bilirubin 0.2 AST 34 ALT 22 Alkaline Phosphatase 104 Total Protein 6.1 L Albumin 3.2 L D Globulin 2.9 Albumin/Globulin Ratio 1.1 Preliminary micro results at discharge 08/03/24 09:50 Sputum Culture - Preliminary Sputum - Expectorated Sputum DS: Diagnosis Discharge Diagnosis (1) Acute exacerbation of chronic obstructive pulmonary disease: Status: Acute Code(s): J44.1 - Chronic obstructive pulmonary disease with (acute) exacerbation (2) C. difficile colitis: Status: Acute Code(s): A04.72 - Enterocolitis due to Clostridium difficile, not specified as recurrent (3) Diarrhea: Status: Acute Code(s): R19.7 - Diarrhea, unspecified Qualifiers: Diarrhea type: unspecified type Qualified Code(s): R19.7 - Diarrhea, unspecified (4) Hypokalemia: Status: Acute Code(s): E87.6 - Hypokalemia (5) Pulmonary cachexia due to chronic obstructive pulmonary disease: Status: Acute Code(s): R64 - Cachexia; J44.9 - Chronic obstructive pulmonary disease, unspecified Meds Home Medications and Allergies Home Medications ?Medication ?Instructions ?Recorded ?Confirmed ?Type cyclobenzaprine 10 mg tablet 10 mg PO HSP PRN muscle spasms 05/07/24 08/03/24 History albuterol sulfate 90 mcg/actuation 2 puff inhalation Q6 wheezing 08/03/24 08/03/24 History aerosol inhaler budesonide 3 mg 9 mg PO DAILY 08/03/24 08/03/24 History capsule,delayed,extended release fluticasone fur. 100 mcg-umeclid 1 inh inhalation DAILY 30 days #60 08/04/24 Rx 62.5 mcg-vilant 25 mcg ea inhalat.powder (Trelegy Ellipta) ipratropium 0.5 mg-albuterol 3 mg 3 ml inhalation Q4-6H PRN 08/04/24 Rx (2.5 mg base)/3 mL nebulization shortness of breath or wheezing 30 soln days #180 mL levofloxacin 750 mg tablet 750 mg PO DAILY 3 days #3 tabs 08/04/24 Rx nicotine 21 mg/24 hr daily 1 patch transdermal DAILY #28 ea 08/04/24 Rx transdermal patch prednisone 20 mg tablet 40 mg (2 x 20 mg) PO DAILY 3 days 08/04/24 Rx #6 tabs vancomycin 50 mg/mL oral solution 125 mg (2.5 mL) PO QID 8 days #0 mL 08/04/24 Rx (Firvanq) New Prescriptions to Start Prescriptions: [id number] [Trelegy Ellipta] Eligio,Deangelo ipratropium-albuterol Eligio,Deangelo levofloxacin Eligio,Deangelo nicotine Eligio,Deangelo prednisone Eligio,Deangelo Allergies Allergy/AdvReac Type Severity Reaction Status Date / Time Sulfa (Sulfonamide Allergy Mild rash Verified 05/07/24 11:27 Antibiotics) methocarbamol (From Robaxin) Allergy Unknown Verified 05/07/24 11:27 allergy reaction Penicillins Allergy Unknown Verified 05/07/24 11:27 allergy reaction methylprednisolone AdvReac Unknown Verified 05/07/24 11:27 allergy reaction Discharge Plan Disposition Patient Disposition: Home, Self-Care Condition: Fair Follow up Plan Follow up with: Aurora Puga MD [Physician] - 09/28/24 1:20 pm Loy Cruz MD [Primary Care Provider] - 08/12/24 1:00 pm Prescriptions/Medication Reconciliation: New ipratropium-albuterol 0.5 mg-3 mg(2.5 mg base)/3 mL Solution For Nebulization 3 ml inhalation Q4-6H PRN (Reason: shortness of breath or wheezing) 30 Days Qty: 180 0RF levofloxacin 750 mg tablet 750 mg PO DAILY 3 Days Qty: 3 0RF prednisone 20 mg Tablet 40 mg PO DAILY 3 Days Qty: 6 0RF vancomycin [Firvanq] 50 mg/mL Recon Soln 125 mg PO QID 8 Days Qty: 0 0RF nicotine 21 mg/24 hr patch 24 hour 1 patch transdermal DAILY Qty: 28 2RF Trelegy Ellipta 100-62.5-25 mcg Blister With Device 1 inh inhalation DAILY 30 Days Qty: 60 0RF Continued cyclobenzaprine 10 mg tablet 10 mg PO HSP PRN (Reason: muscle spasms) albuterol sulfate 90 mcg/actuation HFA aerosol inhaler 2 puff INHALATION Q6 Patient Comments: INHALE TWO PUFFS BY MOUTH EVERY 6 HOURS NEEDED FOR SHORTNESS OF BREATH OR wheezing budesonide 3 mg capsule,delayed,extend.release 9 mg PO DAILY Patient Comments: TAKE THREE CAPSULES BY MOUTH EVERY DAY Discontinued vancomycin 125 mg capsule 125 mg PO QID 10 Days Qty: 40 0RF Rx Instructions: last dose on 08/10/23 Other Ambulatory Orders: Home Medical Equipment (Routine) Location: None Selected Ordered By: Deangelo Del Valle Problem Reconciliation Problems Reviewed?: Yes Patient Discharge Instructions ACTIVITY: Continue current activity DIET: continue same diet Patient Instructions: DI for Chronic Obstructive Pulmonary Disease, DI for Clostridioides difficile Infection Print Language: Romansh Providers Primary Care Provider: Loy Cruz Admit Provider: Deangelo Del Valle Attending Provider: Deangelo Del Valle
--- NOTE | 2024-08-04 13:23 | CARE MANAGER ---
Patient Choice signed for [facility]. She will require a nebulizer machine at time of discharge and order/clinical was faxed.
--- NOTE | 2024-08-04 13:49 | [facility].PHAINT1 ---
Pharmacy Intervention Comments: COUNSELED PATIENT ON NEW MEDICATIONS PRIOR TO DISCHARGE AND ADDRESSED ANY QUESTIONS. PATIENT VERBALIZED UNDERSTANDING.
[2024-08-04] MEDS: FLUTICASONE/UMECLIDIN/VILANTER 100/62.5/25MCG INHALER 1 PUFF IH (13:55)
--- NOTE | 2024-08-05 11:49 | SW/DCPLANNER ---
Spoke with patient on the phone. Patient stated she is okay. Patient stated that she is aware of her upcoming appointments. Patient stated that her medicine was brought to her bedside. Patient stated that she has no concerns or questions at this time. Marian Perales
== END 2024-08-04 15:20 | disposition home or self-care (01) | DRG 191 ==
LOC: ER 22:44 → 2ND 22:51
PROVIDERS: Nurse Practitioner Acute Care; Admitting Provider Internal Medicine Adolescent Medicine; Emergency Provider Emergency Medicine; PCP Family Medicine; Visit Provider Internal Medicine Adolescent Medicine
DX: J44.1 Chronic obstructive pulmonary disease with (acute) exacerbation (principal); A04.72 Enterocolitis due to Clostridium difficile, not specified as recurrent; R64 Cachexia; Z68.1 Body mass index [BMI] 19.9 or less, adult; E87.6 Hypokalemia; F17.210 Nicotine dependence, cigarettes, uncomplicated; Z79.52 Long term (current) use of systemic steroids; Z71.6 Tobacco abuse counseling; Z79.51 Long term (current) use of inhaled steroids
CPT/HCPCS: 36415; 71046; 74177; 80048; 80053; 81001; 82803; 83605; 83735; 84100; 85007; 85025; 85027; 87070; 87077; 87205; 87507; 87636; 93005; 94640; 94761; 99285; G0378; J0131; J1885; J1956; J3480; J7030; J7120; J7620; Q9967

== ENCOUNTER 2024-08-10 22:35 | Emergency (ER) | payer MEDICARE, SELFPAY ==
[2024-08-10 22:36] VITALS: BP 142/82; PULSE 99; RESP 18; TEMP 36.8; O2SAT 97; BMI 16.0
--- NOTE | 2024-08-10 23:03 | XR_ITS ---
PROCEDURE INFORMATION: Exam: XR Chest Exam date and time: 08/10/2024 11:05 PM Age: 68 years old Clinical indication: Cough and shortness of breath; Additional info: Copd general malaise TECHNIQUE: Imaging protocol: Radiologic exam of the chest. Views: 2 views. COMPARISON: CR XR CHEST 2V 08/02/2024 9:20 PM FINDINGS: Lungs: Hyperexpansion. Stable masslike scarring left upper lung. No acute infiltrate. Pleural spaces: Unremarkable. No pleural effusion. No pneumothorax. Heart/Mediastinum: Heart size normal. Bones/joints: Unremarkable. IMPRESSION: Severe emphysematous change.
[2024-08-10 23:11] LABS: Basophils % 0.2 % (0.1-2.0); Eosinophils # 0.2 K/mm3 (0.0-0.4); Eosinophils % 0.8 % (0.1-12.0); Hematocrit 36.2 % (37.0-47.0); Lymphocytes # 2.3 K/mm3 (0.7-4.5); Lymphocytes % 12.8 % (10-50); Mean Corpuscular HGB Conc 33.1 g/dL (31.8-35.4); Mean Corpuscular Hemoglobin 29.3 pg (27.0-31.2); Mean Corpuscular Volume 88.5 fl (81-99); Mean Platelet Volume 8.5 fl (7.4-10.4); Monocytes # 1.9 K/mm3 (0.1-1.0); Monocytes % 10.7 % (1.7-9.3); Neutrophils # 13.2 K/mm3 (1.8-7.8); Platelet Count 435 K/mm3 (142-424); Red Blood Count 4.09 M/mm3 (4.20-5.40); Red Cell Distribution Width 14.6 % (11.5-17.5); White Blood Count 17.8 K/mm3 (4.8-10.8)
[2024-08-10 23:11] LABS: Lactate Venous 1.2 mmol/L (0.4-2.0); VBG Base Excess 2.2 mmol/L (-2.4-2.3); VBG HCO3 26.6 mmol/L (23-30); VBG Oxygen Saturation 78.6 % (50-70); VBG PCO2 41.4 mmol/L (35-51); VBG PH 7.43 mmol/L (7.31-7.41); VBG Total CO2 27.9 mmol/L (23-27)
[2024-08-10 23:12] LABS: MANUAL DIFFERENTIAL MANUAL DIFFERENTIAL (MANUAL DIFF)
--- NOTE | 2024-08-10 23:12 | ECG_ITS ---
APPROVED REPORT Exam: Resting ECG HR:85 bpm ECG Measurements Heart Rate 85 AXES MS 138 P 74 QRSd 65 QRS 3 QT 365 T 70 QTc 408 Conclusion SINUS RHYTHM LOW QRS VOLTAGE IN EXTREMITY LEADS [QRS DEFLECTION < 0.5 mV IN LIMB LEADS] No STEMI Electronically signed by : GISELLE FISHER, 08/12/2024 07:13:12
--- NOTE | 2024-08-10 23:15 | CT_ITS ---
PROCEDURE INFORMATION: Exam: CTA Chest With Contrast Exam date and time: 08/10/2024 11:40 PM Age: 68 years old Clinical indication: Other: General weakness, lle pain, recent admission TECHNIQUE: Imaging protocol: Computed tomographic angiography of the chest with contrast. Exam focused on the arteries. 3D rendering (Not supervised by radiologist): MIP and/or 3D reconstructed images were created by the technologist. Radiation optimization: All CT scans at this facility use at least one of these dose optimization techniques: automated exposure control; mA and/or kV adjustment per patient size (includes targeted exams where dose is matched to clinical indication); or iterative reconstruction. Contrast material: ISOVUE; Contrast volume: 70 ml; Contrast route: INTRAVENOUS (IV); COMPARISON: CT ANGIO CHEST PE PROTOCOL 08/04/2023 6:17 PM FINDINGS: Pulmonary arteries: Normal. No pulmonary emboli. Aorta: Unremarkable. No aortic aneurysm. No aortic dissection. Lungs: Severe centrilobular emphysema. Masslike scarring left upper lung 15 mm unchanged compared to prior. Numerous nodules, unchanged compared to prior. Anterior right upper lobe, 3 mm. Lateral right upper lobe, 3 mm. Additional nodule right upper lobe, 6 mm. Right Apical nodule, 5 mm. All these are stable. Pleural spaces: Unremarkable. No pneumothorax. No pleural effusion. Heart: Unremarkable. No cardiomegaly. No pericardial effusion. Lymph nodes: Unremarkable. No enlarged lymph nodes. Bones/joints: Unremarkable. No acute fracture. Soft tissues: Unremarkable. IMPRESSION: Severe emphysema. Numerous stable nodules as described. Annual follow-up would be appropriate. No pulmonary embolism. No acute infiltrate. COMMENTS: The presence of pulmonary emphysema on CT is an independent risk factor for lung cancer. In the absence of a history or active diagnosis of lung cancer, it is recommended that this patient with emphysema be evaluated for enrollment in a low dose CT lung cancer screening program.
[2024-08-10 23:17] LABS: INR 0.89 (0.9-1.1); Prothrombin Time 9.9 seconds (9.2-12.1)
[2024-08-10 23:23] LABS: Lymphocytes % 12 % (10-50); Monocytes % 6 % (2-9); Neutrophils % 82 % (42-76); Total Cells Counted 100
[2024-08-10 23:24] LABS: RBC Morphology Normal
[2024-08-10 23:25] LABS: Albumin Level 3.6 g/dl (3.5-5.0); Chloride 99 mmol/L (98-107); Potassium 3.9 mmoL/L (3.5-5.1); Sodium 130 mmol/L (136-145)
[2024-08-10 23:26] LABS: Platelet Estimate Slight Increase
[2024-08-10 23:28] LABS: Alanine Aminotransferase 35 U/L (12-78); Albumin/Globulin Ratio 1.2 (1.1-1.8); Alkaline Phosphatase 72 U/L (38-126); Anion Gap 6.9 mEq/L (5-15); Aspartate Amino Transferase 28 U/L (14-36); Bilirubin,Total 0.3 mg/dl (0.2-1.3); Blood Urea Nitrogen 12 mg/dl (7-17); Calcium 8.9 mg/dl (8.4-10.2); Carbon Dioxide 28 mmol/L (22.0-30.0); Creatinine Clearance Estimated 32 mL/min (50-200); Estimated Glomerular Filt Rate 72 ml/min (>60); GFR (African American) 87 ML/MIN (>60); Globulin 2.9 g/dL (1.3-3.2); Glucose 115 mg/dl (74-100); Total Protein,Serum 6.5 g/dl (6.3-8.2)
[2024-08-10 23:29] LABS: Lactic Acid 1.1 mmol/L (0.7-2.1)
[2024-08-10 23:38] LABS: NT Pro Brain Natriuretic Pep. 385 pg/mL (0-125)
[2024-08-10] MEDS: ONDANSETRON 4MG/2ML VIAL 4 MG IV (23:44)
[2024-08-10] MEDS: LACTATED RINGERS 1000ML 1,000 ML 999 ML IV (23:44)
[2024-08-10 23:45] LABS: Troponin I < 0.01 ng/ml (0.00-0.034)
[2024-08-10] MEDS: 0.9 % SODIUM CHLORIDE 50 ML VIAL IV (23:47)
[2024-08-10] MEDS: IOPAMIDOL-370 (76%);100ML BOTTLE 70 ML IV (23:47)
[2024-08-10] MEDS: SODIUM CHLORIDE 0.9% 10ML SYR (RAD ONLY) 10 ML IV (23:47)
--- NOTE | 2024-08-10 23:47 | HMH.EDGENADL ---
Discharge Plan Disposition Patient Disposition: Home, Self-Care Condition: Good Prescriptions Prescriptions: No Action cyclobenzaprine 10 mg tablet 10 mg PO HSP PRN (Reason: muscle spasms) azithromycin 500 mg tablet 500 mg PO DAILY 3 Days Qty: 3 0RF benzonatate 200 mg capsule 200 mg PO TID Qty: 90 0RF albuterol sulfate 90 mcg/actuation HFA aerosol inhaler 2 puff INHALATION Q6 Patient Comments: INHALE TWO PUFFS BY MOUTH EVERY 6 HOURS NEEDED FOR SHORTNESS OF BREATH OR wheezing budesonide 3 mg capsule,delayed,extend.release 9 mg PO DAILY Patient Comments: TAKE THREE CAPSULES BY MOUTH EVERY DAY ipratropium-albuterol 0.5 mg-3 mg(2.5 mg base)/3 mL Solution For Nebulization 3 ml inhalation Q4-6H PRN (Reason: shortness of breath or wheezing) 30 Days Qty: 180 0RF levofloxacin 750 mg tablet 750 mg PO DAILY 3 Days Qty: 3 0RF prednisone 20 mg Tablet 40 mg PO DAILY 3 Days Qty: 6 0RF vancomycin [Firvanq] 50 mg/mL Recon Soln 125 mg PO QID 8 Days Qty: 0 0RF nicotine 21 mg/24 hr patch 24 hour 1 patch transdermal DAILY Qty: 28 2RF Trelegy Ellipta 100-62.5-25 mcg Blister With Device 1 inh inhalation DAILY 30 Days Qty: 60 0RF Referrals Follow up/Referrals: Loy Cruz MD [Primary Care Provider] - See instructions Activity Restrictions/Add. Instructions Additional Instructions/Restrictions: You were evaluated in the ER and are appropriate for discharge at this time. Continue taking your home medications as prescribed. Finish all antibiotics. Continue the Trelegy and other breathing treatments as well. Drink plenty of fluids, I also recommend Gatorade or Pedialyte to maintain normal electrolytes including sodium and potassium. Make an appointment with your primary care doctor for reevaluation in 2 to 3 days. He should recheck your labs at that time. Return to the ER with new, worsening, or otherwise concerning symptoms. Clinical Impressions Clinical Impression: Generalized weakness, Hyponatremia Print Language Print Language: Maori Discharge ED Provider: [facility] General Chief complaint: Weakness Stated complaint: SOA cough Time Seen by Provider: 08/10/24 23:02 Mode of Arrival: Ambulatory Source of Information: Patient Limitations: No Limitations Description of Symptoms (Recalled from ER Triage Doc. by RN): Patient reports she was recently admitted to [facility] with copd, c-diff, and low potassium and was discharged last saturday. Patient reports tonight she starting feeling unwell tonight and c/o of RIVAS, and feeling 'unwell'. Pateint denies vomiting, nausea, diarrhea, or a fever. Patient is currently taking vancomycin and should finish on saturday this week. History of Present Illness HPI narrative: 68-year-old female with a history of tobacco abuse, osteoporosis, colitis who was recently admitted to the hospital with COPD exacerbation, C. difficile, hypokalemia presents to the ER with generalized malaise and feeling unwell. Patient reports she was discharged last Saturday. Review of records demonstrates she was admitted from 08/02 through 08/04 for the previously stated problems. She was treated with oral vancomycin for the C. difficile infection. Patient states this she is currently taking vancomycin but finished the other antibiotics. She states she does not have any headache, dizziness, numbness, tingling, she states her legs feel equally weak. She does report right calf pain. She states she has no chest pain or difficulty breathing. She states she is not currently taking the prescribed Trelegy because she thought maybe that was making her ache. She reports no nausea, vomiting, she states her stools are back to normal. She states she always has mildly soft stool and it is never truly firm or formed. She states it is not the florid diarrhea that she was having when she had C. difficile. She denies fevers, chills, cough, congestion. She states she felt weak when trying to get herself through the house today. She denies any falls or injuries. No dysuria or hematuria. ROS otherwise negative. Related Data Home Medications ?Medication ?Instructions ?Recorded ?Confirmed cyclobenzaprine 10 mg tablet 10 mg PO HSP PRN muscle spasms 05/07/24 08/03/24 albuterol sulfate 90 mcg/actuation 2 puff inhalation Q6 wheezing 08/03/24 08/03/24 aerosol inhaler budesonide 3 mg 9 mg PO DAILY 08/03/24 08/03/24 capsule,delayed,extended release Previous Rx's ?Medication ?Instructions ?Recorded fluticasone fur. 100 mcg-umeclid 1 inh inhalation DAILY 30 days #60 08/04/24 62.5 mcg-vilant 25 mcg ea inhalat.powder (Trelegy Ellipta) ipratropium 0.5 mg-albuterol 3 mg 3 ml inhalation Q4-6H PRN 08/04/24 (2.5 mg base)/3 mL nebulization shortness of breath or wheezing 30 soln days #180 mL levofloxacin 750 mg tablet 750 mg PO DAILY 3 days #3 tabs 08/04/24 nicotine 21 mg/24 hr daily 1 patch transdermal DAILY #28 ea 08/04/24 transdermal patch prednisone 20 mg tablet 40 mg (2 x 20 mg) PO DAILY 3 days 08/04/24 #6 tabs vancomycin 50 mg/mL oral solution 125 mg (2.5 mL) PO QID 8 days #0 mL 08/04/24 (Firvanq) azithromycin 500 mg tablet 500 mg PO DAILY 3 days #3 tabs 08/07/24 benzonatate 200 mg capsule 200 mg PO TID #90 caps 08/07/24 Allergies Allergy/AdvReac Type Severity Reaction Status Date / Time Sulfa (Sulfonamide Allergy Mild rash Verified 05/07/24 11:27 Antibiotics) methocarbamol (From Robaxin) Allergy Unknown Verified 05/07/24 11:27 allergy reaction Penicillins Allergy Unknown Verified 05/07/24 11:27 allergy reaction methylprednisolone AdvReac Unknown Verified 05/07/24 11:27 allergy reaction PFSH PFS Disclaimer: The information contained in this section may have been updated after the patient was seen, as this information can be updated by other users. 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 Strep sore throat Otitis media of right ear Sinusitis Low back pain Muscle spasm Back pain Upper respiratory infection Acute viral syndrome Bronchitis Dyspnea Allergy to sulfa drugs Itching Migraine Otitis media Viral syndrome COPD exacerbation Exposure to COVID-19 virus Viral syndrome Syncope and collapse Abdominal pain Fatigue COPD exacerbation Chest pain Lumbar radiculopathy Viral upper respiratory illness Skin problem Surgical History Hx of fusion of cervical spine H/O tubal ligation Family History Father Coronary artery disease Mother Cancer Sister Cancer Sister Cancer Hypertension Son Hyperlipidemia 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 (Updated 08/03/24 @ 01:33 by Radhika Au RN) Smoking Status: Current every day smoker tobacco type: cigarettes packs per day: 1 years smoked: 30 alcohol intake: never current occupational status: retired Travel in the last 8 weeks: None caffeine: Yes Have you lived/traveled outside [place] in past 30 days?: No Contact w/someone who lives/traveled outside [place] past 30 days?: No Exposure to someone with infectious disease in past 14 days?: No Do you have a fever (greater than 100.4 F or 38 C)?: No Have you tested positive for COVID-19: No Exposed to someone with COVID-19 in past 14 days?: No Do you have a sore throat?: No Do you have a cough?: Yes Do you have any weakness?: No Do you have any diarrhea?: No Are you experiencing any unusual bleeding?: No Do you have any muscle aches/pain?: No Do you have any abdominal pain?: No Are you experiencing loss of taste or smell?: No Other 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 Have you received the Flu Vaccine for this season: No Have you received the Pneumonia Vaccine: No ROS Obtained: Yes Systems reviewed as appropriate & no additional complaints except as documented Per HPI Physical Exam General General appearance: alert and in no apparent distress Comment: Frail-appearing but nontoxic, not in extremis Head Head exam: atraumatic and normocephalic Eye Eye exam: Present PERRL and EOMI ENT ENT exam: Present mucous membranes moist Neck Neck exam: Present normal inspection and full ROM Chest Chest inspection: Present symmetric chest wall rise; Absent tenderness Respiratory Respiratory exam: Present normal lung sounds bilaterally; Absent respiratory distress, wheezes or stridor Cardiovascular Cardiovascular exam: Present regular rate and normal rhythm Abdominal Exam Abdominal exam: Present soft; Absent distention, tenderness, guarding or rebound Extremities Exam Extremities exam: Present full ROM and calf tenderness (Mild right calf tenderness but there is no swelling, redness, or heat); Absent edema or joint swelling Neurological Exam Neurological exam: Present alert and oriented X3; Absent motor sensory deficit Psychiatric Psychiatric exam: Present normal affect and normal mood Skin Skin exam: Present warm and dry Medical Decision Making Medical Records Medical records reviewed: Yes I reviewed the patient's medical records. Screening: Per USPSTF and CDC recommendations, given the prevalence of disease in our region, it is our hospital?s policy to screen for HIV and viral Hepatitis for all patients aged 18 and over and those with ongoing risk factors. MR Comment: Review of discharge prescriptions demonstrates patient was started on DuoNeb, levofloxacin, prednisone, continued on vancomycin oral, nicotine patches, Trelegy. [place] Inquiry Pt receiving controlled substance: No Vital Signs: 08/10/24 22:36 08/11/24 00:31 Temperature 98.2 F 98.2 F Temperature Source Oral Oral Pulse Rate 86 Pulse Rate [Right Brachial] 99 H Respiratory Rate 18 18 Blood Pressure 122/60 Blood Pressure [Right Arm] 142/82 H Blood Pressure Mean [Right Arm] 102 Blood Pressure Source Automatic Cuff Blood Pressure Source [Right Arm] Automatic Cuff Blood Pressure Position Supine Blood Pressure Position [Right Arm] Supine 02 Sat by Pulse Oximetry 97 Oxygen Delivery Method Room Air Room Air Lab Data Lab Results 08/10/24 23:00: WBC 17.8 H, RBC 4.09 L, Hgb 12.0 L, Hct 36.2 L, MCV 88.5, MCH 29.3, MCHC 33.1, RDW 14.6, Plt Count 435 H, MPV 8.5, Neut % (Auto) 74.0, Lymph % (Auto) 12.8, [place] % (Auto) 10.7 H, Eos % (Auto) 0.8, Baso % (Auto) 0.2, Neut # (Auto) 13.2 H, Lymph # (Auto) 2.3, [place] # (Auto) 1.9 H, Eos # (Auto) 0.2, Baso # (Auto) 0.0, Total Counted 100, Neutrophils % (Manual) 82 H, Lymphocytes % (Manual) 12, Monocytes % (Manual) 6, Platelet Estimate Slight increase, RBC Morphology Normal, PT 9.9, INR 0.89 L, Sodium 130 L, Potassium 3.9, Chloride 99, Carbon Dioxide 28, Anion Gap 6.9, BUN 12, Creatinine 0.80, Estimated Creat Clear 32, Estimated GFR 72, Est GFR ( Amer) 87, Glucose 115 H, Lactate 1.1, Calcium 8.9, Total Bilirubin 0.3, AST 28, ALT 35, Alkaline Phosphatase 72, Troponin I < 0.01, NT-Pro-B Natriuret Pep 385 H, Total Protein 6.5, Albumin 3.6, Globulin 2.9, Albumin/Globulin Ratio 1.2 08/10/24 23:04: VBG pH 7.43 H, VBG pCO2 41.4, VBG pO2 44.0 H, VBG HCO3 26.6, VBG Total CO2 27.9 H, VBG O2 Saturation 78.6 H, VBG Base Excess 2.2, VBG Lactic Acid 1.2 08/10/24 23:00 08/10/24 23:00 Orders (Tests/Meds): ED MEDICATIONS Discontinued Medications Generic Name Dose Route Start Last Admin Trade Name Freq PRN Reason Stop Dose Admin Lactated Ringer's 1,000 mls @ 999 mls/hr 08/10/24 23:03 08/10/24 23:44 Lactated Ringer's 1000 Ml Bag IV 08/11/24 00:03 999 mls/hr .Q1H1M ONE Administration Iopamidol 70 ml 08/10/24 23:46 08/10/24 23:47 Iopamidol-370 (76%);100ml Bottle IV 08/10/24 23:47 70 ml ONCE ONE Administration Ondansetron HCl 4 mg 08/10/24 23:04 08/10/24 23:44 Ondansetron 4mg/2ml Vial IV 08/10/24 23:05 4 mg ONCE ONE Administration Sodium Chloride 10 ml 08/10/24 23:46 08/10/24 23:47 Sodium Chloride 0.9% 10ml Syr (Rad Only) IV 08/10/24 23:47 10 ml ONCE ONE Administration Sodium Chloride 50 ml 08/10/24 23:46 08/10/24 23:47 0.9 % Sodium Chloride 50 Ml Vial IV 08/10/24 23:47 50 ml ONCE ONE Administration ORDERS Category Date Time Status CT angio chest PE protocol Stat Cat Scan 08/10/24 23:15 Completed CXR 2 view (NOT portable) [XR chest 2V] Stat Exams 08/10/24 23:03 Completed POCUS Point of Care (ER Only) Stat Exams 08/10/24 23:46 Ordered BNP [NT Pro Brain Natriuretic Pep.] Stat Lab 08/10/24 23:00 Completed CBC w/Auto Diff [Complete Blood Count Auto Diff] Stat Lab 08/10/24 23:00 Completed CMP [Comprehensive Metabolic Panel] Stat Lab 08/10/24 23:00 Completed D-Dimer Stat Lab 08/11/24 00:28 Received Lactic Acid Stat Lab 08/10/24 23:00 Completed PT INR [Prothrombin Time INR] Stat Lab 08/10/24 23:00 Completed Trop I [Troponin I] Stat Lab 08/10/24 23:00 Completed Troponin I Q3H Lab 08/11/24 02:15 Ordered Troponin I Q3H Lab 08/11/24 05:15 Ordered VBG [Venous Blood Gas] Stat RT 08/10/24 23:04 Completed Medical Decision Narrative: In summary, this 68-year-old female with comorbidities described in the HPI presents to the emergency department today with generalized malaise and weakness without specific symptoms aside from complaining of mild right calf pain. On initial evaluation patient is borderline tachycardic but hemodynamically stable, afebrile, pulmonary exam clear, no peripheral edema, patient has very mild proximal right calf tenderness but no erythema, swelling, heat, no tender palpable cord, benign abdominal exam, GCS 15 with no neurodeficits. Differential diagnosis includes but is not limited to viral syndrome, electrolyte abnormality, DVT, PE, lactic acidosis, patient describes dark but not tarry stools, I did consider possibility of anemia, also considered possibility of ACS but have low suspicion for this since patient has no chest pain or pressure. Based on these concerns, I ordered serum labs, [id number] ultrasound, chest x-ray, initially I was going to wait for D-dimer however machine is down for multiple hours, since patient is borderline tachycardic and has generalized malaise with right calf pain, I am going to perform CTA PE. ECG personally interpreted demonstrates sinus rhythm, rate 85, normal axis, normal WA and QTc, no STEMI. Patient received LR, ondansetron initially for treatment. Labs personally reviewed demonstrate leukocytosis improved from the day of discharge, leukocytosis is likely related to recent illness and patient having had steroids, anemia is improved from prior, reassuring against significant blood loss, patient has mild thrombocythemia which is nonspecific and nonactionable, mild monocytosis, PT/INR nonactionable, VBG with pH 7.43, no hypercarbia which is reassuring against COPD exacerbation, lactic 1.2 on VBG, 1.1 on chemistry, CMP is notable for hyponatremia with sodium 130, down from 136 6 days ago when she was discharged from the hospital. Patient is receiving LR which should be adequate for this. She does not have any findings of kidney dysfunction, troponin undetectably low reassuring especially in the setting of reassuring EKG and no chest pain or shortness of breath. BNP 385, patient does not appear clinically fluid overloaded.. Chest x-ray personally interpreted demonstrates emphysematous changes but no lobar infiltrate or other acute intrathoracic abnormality, see radiology read for final interpretation. CTA PE personally interpreted does not demonstrate PE, patient has obvious emphysema, pulmonary nodules, but no obvious pneumonia or other abnormality. See radiology read for final interpretation which is in agreement. On reassessment patient has had dramatic improvement of symptoms. She states she feels notably better and repeatedly expresses gratitude for this. I did order [id number] ultrasound and performed DVT ultrasound of her right lower extremity. I do not appreciate DVT. Since this is [id number] and not a formal ultrasound, I did still order the D-dimer though I realize it will not result in a timely fashion. Patient is appropriate for discharge at this time. If patient's D-dimer is elevated I will call her and give her an outpatient order for formal DVT ultrasound. She is comfortable with this plan and understands why this could be necessary. At this time patient is appropriate for discharge. She has ambulated independently to the restroom and feels steady on her feet. She again expresses how much better she feels. I suspect that she was mildly dehydrated with slight electrolyte imbalance in the setting of her significant recent illness this was enough to cause significant generalized weakness and the symptoms with which she presented. As stated, I will call if her D-dimer indicates need for formal ultrasound. Patient was given instructions on symptomatic management, follow up instructions, and return precautions for the emergency department. Patient reports she has follow-up with her PCP in a couple days. Patient indicated understanding and was discharged in stable condition. Procedures Miscellaneous Procedure Procedure Performed: Limited DVT ultrasound Indication: Limited compression ultrasonography of the right lower extremity was performed to evaluate for non-compressibility of the deep veins in the patient. The ultrasound was performed with the following indications, as noted in the H&P: Right calf pain without swelling or erythema Identified structures: Right [common femoral vein, femoral vein, popliteal vein were examined.] I evaluated the deep veins of the calf as well through the area where patient had tenderness on exam. Findings: Lower Extremity: Right CFV: Good compressibility Right FV: Good compressibility Right Popliteal vein: Good compressibility Deep veins of proximal calf and area of patient's tenderness: Good compressibility Impression: Normal right lower extremity exam Images were saved to permanent archive The study was technically adequate CPT: 10299-74-AR This study was performed by me, and I personally interpreted all images/videos. Based on my clinical judgement, these images were adequate and did not necessitate further imaging. Critical Care Critical Care Time Critical Care Time: No
[2024-08-11 00:31] VITALS: BP 122/60; PULSE 86; RESP 18; TEMP 36.8; O2SAT 97
[2024-08-11 03:44] LABS: D-Dimer 1.16 ug/mL (0.0-0.5)
== END 2024-08-11 00:41 | disposition home or self-care (01) ==
PROVIDERS: Emergency Provider Emergency Medicine; PCP Family Medicine
DX: E87.1 Hypo-osmolality and hyponatremia (principal); R06.02 Shortness of breath; R05.9 Cough, unspecified; R53.1 Weakness; R51.9 Headache, unspecified; R53.81 Other malaise
CPT/HCPCS: 71046; 71275; 80053; 82803; 83605; 83880; 84484; 85007; 85025; 85027; 85378; 85610; 93005; 96361; 96374; 99285; J2405; J7120; Q9967

== ENCOUNTER 2024-08-11 14:56 | Outpatient (CLI) | payer MEDICARE, SELFPAY ==
--- NOTE | 2024-08-11 | CA_ITS ---
FINAL REPORT TECHNIQUE: Multiple transverse and longitudinal images were performed of the right femoral-popliteal deep venous system with augmentation and compression maneuvers. CLINICAL HISTORY: Pain in right leg post hospitalization, Smoker FINDINGS: Right lower extremity duplex ultrasound demonstrates normal flow in the deep venous system. There is no abnormal echogenicity to suggest thrombus. There is normal compression and augmentation. IMPRESSION: No evidence of right DVT. Reviewed, Interpreted and Dictated by Andrew Moore MD Transcribed by Kasia Parsons Authenticated and [facility][1]
== END 2024-08-11 23:59 | disposition home or self-care (01) ==
LOC: RT 14:56
PROVIDERS: PCP Family Medicine; Visit Provider Emergency Medicine
DX: M79.604 Pain in right leg (principal); I73.9 Peripheral vascular disease, unspecified
CPT/HCPCS: 93971

== ENCOUNTER 2024-09-17 08:43 | Outpatient (CLI) | payer MEDICARE, SELFPAY ==
[2024-09-18 19:23] LABS: C difficile Toxins AB, EIA Negative (Negative)
== END 2024-09-17 23:59 | disposition home or self-care (01) ==
LOC: LAB 08:43
PROVIDERS: PCP Family Medicine; Visit Provider Nurse Practitioner Family
DX: A04.72 Enterocolitis due to Clostridium difficile, not specified as recurrent (principal); R19.7 Diarrhea, unspecified
CPT/HCPCS: 87324

== ENCOUNTER 2024-11-18 14:42 | Outpatient (CLI) | payer MEDICARE, SELFPAY ==
--- NOTE | 2024-11-18 14:44 | XR_ITS ---
FINAL REPORT CLINICAL HISTORY: right lateral ankle pain w/ swelling, osteoporosis FINDINGS: RIGHT ANKLE Three views were obtained. There is no fracture or dislocation. The joint spaces appear normal. There is a small plantar spur. Soft tissue edema seen over the medial malleolus. IMPRESSION: Soft tissue edema without acute bony abnormality. Reviewed, Interpreted and Dictated by Andrew Moore MD Transcribed by Kasia Parsons Authenticated and [facility]
[2024-11-18 18:48] LABS: Basophils # 0.1 K/mm3 (0-0.2); Basophils % 0.7 % (0.1-2.0); Eosinophils # 0.4 Kmm3 (0.0-0.4); Hematocrit 40.4 % (37.0-47.0); Hemoglobin 12.7 g/dL (12.2-16.2); Lymphocytes % 15.5 % (10-50); Mean Corpuscular HGB Conc 31.4 g/dL (31.8-35.4); Mean Corpuscular Hemoglobin 29.5 pg (27.0-31.2); Mean Platelet Volume 9.8 fl (7.4-10.4); Monocytes % 7.8 % (1.7-9.3); Neutrophils # 9.3 K/mm3 (1.8-7.8); Neutrophils % 72.7 % (37.0-80.0); Nucleated Red Blood Cells # 0 10^3/uL; Nucleated Red Blood Cells % 0 %; Platelet Count 337 K/mm3 (142-424); Red Cell Distribution Width 14.3 % (11.5-17.5); Red Cell Distribution Width-SD 49.5 fL; White Blood Count 12.8 K/mm3 (4.8-10.8)
[2024-11-18 19:10] LABS: Alanine Aminotransferase 18 U/L (12-78); Albumin Level 4.2 g/dl (3.5-5.0); Albumin/Globulin Ratio 1.8 (1.1-1.8); Alkaline Phosphatase 78 U/L (38-126); Anion Gap 10.1 mEq/L (5-15); Aspartate Amino Transferase 31 U/L (14-36); Bilirubin,Total 0.4 mg/dl (0.2-1.3); Blood Urea Nitrogen 8 mg/dl (7-17); Calcium 9.4 mg/dl (8.4-10.2); Carbon Dioxide 27 mmol/L (22.0-30.0); Chloride 107 mmol/L (98-107); Estimated Glomerular Filt Rate 72 ml/min (>60); GFR (African American) 87 ML/MIN (>60); Globulin 2.4 g/dL (1.3-3.2); Glucose 97 mg/dl (74-100); Potassium 4.1 mmoL/L (3.5-5.1); Sodium 140 mmol/L (136-145); Total Protein,Serum 6.6 g/dl (6.3-8.2); Uric Acid 5.6 mg/dl (2.5-6.2)
== END 2024-11-18 23:59 | disposition home or self-care (01) ==
LOC: RAD 14:42
PROVIDERS: PCP Family Medicine; Visit Provider Nurse Practitioner
DX: M25.571 Pain in right ankle and joints of right foot (principal); M81.0 Age-related osteoporosis without current pathological fracture
CPT/HCPCS: 73610; 80053; 84550; 85025

== ENCOUNTER 2024-12-01 14:25 | Emergency (ER) | payer MEDICARE, SELFPAY ==
--- NOTE | 2024-12-01 14:30 | ECG_ITS ---
APPROVED REPORT Exam: Resting ECG HR:81 bpm ECG Measurements Heart Rate 81 AXES CO 134 P 79 QRSd 78 QRS 17 QT 399 T 75 QTc 437 Conclusion SINUS RHYTHM Electronically signed by : IONA COULTER, 12/03/2024 11:46:00
--- OUTSIDE RECORDS SUMMARY | 2024-12-01 14:31 | XMS_ITS | Continuity of Care Document ---
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 Chronic low back pain - this is generally stablke 2. Mild chronic left lower lumbar radiculopathy 3. Neck pain at times; h/o ACDF Mostly she seems stable. She agrees. If back pain worsens/changes or any new symptoms arise, she knows to call. [email or web address] Not available 10/28/2024 18:01:48 Plan of Treatment Reminders Order Date Submit Date Provider Last Modified By Organization Details Last Modified Time Details Appointments None recorded. Lab None recorded. Referral None recorded. Procedures None recorded. Surgeries None recorded. Imaging None recorded. Medication Orders cyclobenzap rine 10 mg tablet 2024 025 [facility], [facility]0 [facility] [address], [place], [phone], 12:32:40 Patient TargetsNo targets recorded. Patient InstructionsNo instructions recorded. Reason for Referral None Reported. Problems Name Problem SNOMED Code Status Onset Date Resolution Date Notes Provider Name and Address Organization Details Recorded Time Parmaldonado abdalla 67334799 Active 2015 Monica Taylor (Nicky) [facility] 12/27/201 6 10:52:55 Pain in right lower limb 676597334 Active 2015 From Automated Load;Provi steph: Madie Hopper;Stat us: Active Not Available [facility] 7 06:51:54 Headache 41073706 Active 2015 From Automated Load;Provi steph: Madie Hopper;Stat us: Active Not Available [facility] 6 09:40:34 Neck pain 08465883 Active 2015 From Automated Load;Provi steph: Madie Hopper;Stat us: Active Not Available [facility] 6 09:40:34 Cervical disc disorder 795342947 Active 2015 From Automated Load;Provi steph: Madie Hopper;Stat us: Active Not Available [facility] 6 09:40:34 Problem Notes None recorded. Procedures Surgical History Date Name Laterality Status Provider Name and Address Organization Details Recorded Time 08/23/19 24 Electromyography (EMG) with Nerve Conduction Study (NCV) completed Monica Taylor (Nicky) [facility] 08/23/2023 14:37:25 12/09/19 22 tooth extraction completed Anna Sparks [facility] 12/14/2021 09:20:42 07/17/20 16 Electromyography (EMG) with Nerve Conduction Study (NCV) completed Monica Taylor (Nicky) [facility] 07/17/2016 09:45:02 06/29/20 14 Neck Surgery completed Shona Reynolds [facility] 08/27/2016 09:06:41 Imaging Results None recorded. Procedure Notes None recorded. Medical Equipment None Reported. Allergies Allergen ID Allergen Name Allergen Category Reaction Reaction Severity Criticality Documentation Date Start Date Code Code System Note Provider Name and Address Organization Details Recorded Time 463181 Robaxin medicatio n Not available Not available Not available 06/14/2016201395 5 RxNorm Comme nt: Creat ed By: Evelyn Mccoy eated Date: 014 11:13 :17 AM; Not Available [facility] 6 13:39:43 256642 amoxicill in medicatio n Not available Not available Not available 09/12/2017 723 RxNorm Arlen duran [facility] 8 08:45:10 [id number] Product containin g penicilli n (product) medicatio n Not available Not available Not available 12/14/2021 28047 8001 SNSANTA Sparks [facility] 2 09:17:41 Medications Name Sig Start Date Stop Date Status Note LastModified by Organization Details LastModified Time cyclobenz aprine 10 mg tablet TAKE ONE TABLET BY MOUTH EVERY DAY AT BEDTIME MAY CAUSE DROWSINE SS 2024 active Not Available Not Available Not Avai lable amoxicill in 500 mg capsule 09/12 completed Not Available Not Available Not Available promethaz ine-DM 6.25 mg-15 mg/5 mL oral syrup TAKE 1 TEASPOON FUL (5 ML) BY MOUTH FOUR TIMES DAILY NEEDED MAY CAUSE DROWSINE SS 10/01 completed Not Available Not Available Not Available nystatin 100,000 unit/mL oral suspensio n SWISH AND swallow 5 ML BY MOUTH FOUR TIMES DAILY --SHAKE WELL BEFORE USE-- 12/14 completed Not Available Not Available Not Available doxycycli ne hyclate 100 mg capsule TAKE ONE CAPSULE BY MOUTH TWICE DAILY FOR 10 DAYS -- FINISH ALL MEDICINE -- 10/28 completed Not Available Not Available Not Available ipratropi um 0.5 mg-albute rol 3 mg (2.5 mg base)/3 mL nebulizat ion soln INHALE THE CONTENTS OF 1 VIAL VIA NEBULIZE R EVERY 4 TO 6 HOURS NEEDED FOR SHORTNES S OF BREATH OR wheezing active Not Available Not Available No t Available clindamyc in HCl 300 mg capsule TAKE ONE CAPSULE BY MOUTH THREE TIMES DAILY -- FINISH ALL MEDICINE -- 10/28 completed Not Available Not Available Not Available loperamid e 2 mg capsule TAKE ONE CAPSULE BY MOUTH DAILY (can titrate UP DIRECTED TO desired effect --maximu m of 8 capsules daily--) 12/14 completed Not Available Not Available Not Available azithromy hermilo 250 mg tablet TAKE 2 TABLETS BY MOUTH ON DAY 1, THEN TAKE 1 TABLET DAILY ON DAYS 2-5 10/28 completed Not Available Not Available Not Available benzonata te 200 mg capsule TAKE ONE CAPSULE BY MOUTH THREE TIMES DAILY active Not Available Not Available No t Available hydrocodo ne 5 mg-acetam inophen 325 mg tablet 03/07 completed Not Available Not Available Not Available sucralfat e 1 gram tablet TAKE ONE TABLET BY MOUTH FOUR TIMES DAILY active Not Available Not Available No t Available ondansetr on HCl 4 mg tablet TAKE ONE TABLET BY MOUTH AT ONSET of HEADACHE , MAY REPEAT EVERY 8 HOURS NEEDED 10/01 completed Not Available Not Available Not Available famotidin e 40 mg tablet TAKE ONE TABLET BY MOUTH EVERY DAY AT NIGHT active Not Available Not Available No t Available prednison e 20 mg tablet TAKE TWO TABLETS BY MOUTH ONCE DAILY FOR 3 DAYS -- FINISH ALL MEDICINE -- --TAKE WITH FOOD-- 10/28 completed Not Available Not Available Not Available alendrona te 70 mg tablet TAKE ONE TABLET BY MOUTH ONCE A WEEK active Not Available Not Available No t Available Prilosec 40 mg capsule,d elayed release Daily 03/07 completed Duration : 30 days;Bridger quency: daily;Me dication Descript ion: omeprazo le; Dosage:1 ; Route:or al; refills: 1; Quantity :30 delayed release capsule Not Available Not Available Not Available Zantac 300 mg tablet Bedtime 09/16 completed Frequenc y: hs;Medic ation Descript ion: ranitidi ne; Dosage:1 ; Route:or al; refills: 1; Quantity :30 tablet Not Available Not Available Not Available metronida zole 250 mg tablet TAKE ONE TABLET BY MOUTH TWICE DAILY --AVOID ANY PRODUCT( S) CONTAINI NG ALCOHOL WHILE TAKING THIS MEDICATI ON-- active Not Available Not Available No t Available Anucort-H C 25 mg supposito ry insert 1 supposit ory RECTALLY EVERY MORNING FOR 7 DAYS 08/02 completed Not Available Not Available Not Available levofloxa hermilo 250 mg tablet TAKE 1 TABLET BY MOUTH ONCE DAILY FOR 10 DAYS 10/01 completed Not Available Not Available Not Available ciproflox acin 500 mg tablet TAKE ONE TABLET BY MOUTH TWICE DAILY UNTIL GONE 10/28 completed Not Available Not Available Not Available sulfameth oxazole 800 mg-trimet hoprim 160 mg tablet TAKE ONE TABLET BY MOUTH TWICE DAILY FOR 7 DAYS -- FINISH ALL MEDICINE -- 10/01 completed Not Available Not Available Not Available triamcino lone acetonide 0.1 % topical cream 11/17 completed Not Available Not Available Not Available vancomyci n 125 mg capsule TAKE ONE CAPSULE BY MOUTH FOUR TIMES DAILY FOR 10 DAYS -- FINISH ALL MEDICINE -- active Not Available Not Available No t Available Nexium 20 mg capsule,d elayed release Take 1 capsule every day by oral route. 11/17 completed Not Available Not Available Not Available oxycodone -acetamin ophen 5 mg-325 mg tablet TAKE ONE TABLET BY MOUTH EVERY DAY NEEDED FOR PAIN MAY CAUSE DROWSINE SS 08/02 completed Not Available Not Available Not Available hydrocort isone 2.5 % topical cream with perineal applicato r APPLY TOPICALL Y TO THE AFFECTED AREA(S) ONCE DAILY NEEDED active Not Available Not Available No t Available amoxicill in 875 mg tablet 03/07 completed Not Available Not Available Not Available dicyclomi ne 20 mg tablet TAKE ONE TABLET BY MOUTH FOUR TIMES DAILY NEEDED FOR abdomina l pain active Not Available Not Available No t Available benzonata te 100 mg capsule TAKE 1 CAPSULE BY MOUTH THREE TIMES DAILY NEEDED FOR COUGH 10/01 completed Not Available Not Available Not Available rizatript an 10 mg disintegr ating tablet DISSOLVE ONE TABLET in MOUTH NEEDED FOR migraine ; MAY REPEAT DOSE in 2 hours if needed active Not Available Not Available No t Available doxycycli ne monohydra te 100 mg capsule TAKE ONE CAPSULE BY MOUTH TWICE DAILY FOR 7 DAYS -- FINISH ALL MEDICINE -- 10/01 completed Not Available Not Available Not Available pantopraz ole 40 mg tablet,de layed release 03/07 completed Not Available Not Available Not Available esomepraz ole magnesium 40 mg capsule,d elayed release 11/17 completed Not Available Not Available Not Available dexametha sone 4 mg tablet TAKE ONE TABLET BY MOUTH TWICE DAILY FOR 5 DAYS -- FINISH ALL MEDICINE -- --TAKE WITH FOOD-- 11/17 completed Not Available Not Available Not Available promethaz ine 25 mg tablet TAKE ONE TABLET BY MOUTH EVERY 6 HOURS NEEDED FOR NAUSEA 10/01 completed Not Available Not Available Not Available polymyxin B sulfate 10,000 unit-trim ethoprim 1 mg/mL eye drops 09/16 completed Not Available Not Available Not Available nicotine 21 mg/24 hr daily transderm al patch apply 1 PATCH TO THE SKIN EVERY DAY active Not Available Not Available No t Available monteluka st 10 mg tablet 09/16 completed Not Available Not Available Not Available hydroxyzi ne HCl 25 mg tablet TAKE 1/2 TABLET BY MOUTH FOUR TIMES DAILY NEEDED FOR ITCHING MAY CAUSE DROWSINE SS active Not Available Not Available No t Available gabapenti n 100 mg capsule Bedtime 03/07 completed Not Available Not Available Not Available budesonid e DR - ER 3 mg capsule,d elayed,ex tended release TAKE THREE CAPSULES BY MOUTH EVERY DAY active Not Available Not Available No t Available ibuprofen 600 mg tablet 03/07 completed Not Available Not Available Not Available cefuroxim e axetil 500 mg tablet TAKE ONE TABLET BY MOUTH EVERY TWELVE HOURS FOR 10 DAYS -- FINISH ALL MEDICINE -- 10/01 completed Not Available Not Available Not Available levofloxa hermilo 500 mg tablet TAKE ONE TABLET BY MOUTH ONCE DAILY FOR 7 DAYS -- FINISH ALL MEDICINE -- 08/02 completed Not Available Not Available Not Available levofloxa hermilo 750 mg tablet TAKE ONE TABLET BY MOUTH ONCE DAILY FOR 3 DAYS -- FINISH ALL MEDICINE -- 10/28 completed Not Available Not Available Not Available methylpre dnisolone 4 mg tablets in a dose pack TAKE ACCORDIN G TO PACKAGE INSTRUCT IONS 08/02 completed Not Available Not Available Not Available albuterol sulfate HFA 90 mcg/actua tion aerosol inhaler INHALE TWO PUFFS BY MOUTH EVERY 6 HOURS NEEDED FOR SHORTNES S OF BREATH OR wheezing active Not Available Not Available No t Available brompheni ramine-ps eudoephed rine-DM 2 mg-30 mg-10 mg/5 mL oral syrup TAKE 1 TEASPOON FUL (5 ML) BY MOUTH EVERY 6 HOURS NEEDED FOR cough active Not Available Not Available No t Available ondansetr on 4 mg disintegr ating tablet DISSOLVE ONE TABLET in MOUTH EVERY 6 TO 8 HOURS NEEDED active Not Available Not Available No t Available colestipo l 1 gram tablet TAKE ONE TABLET BY MOUTH TWICE DAILY NEEDED (FOR DIARRHEA , NEEDED. MAY work best if taken AT bedtime. Don't take with other medicati ons) active Not Available Not Available No t Available dicyclomi ne 10 mg capsule TAKE ONE CAPSULE BY MOUTH FOUR TIMES DAILY 11/17 completed Not Available Not Available Not Available diazepam 5 mg tablet Take 2 tablets as needed by oral route. 2022 active [facility]: [phone] 0-61 Not Available Not Available Not Available Ibuprofen -Pmr 200 mg tablet As needed 11/17 completed Duration : 30 days;Bridger quency: prn;Medi cation Descript ion: ibuprofe n; Dosage:1 -2; Route:or al; refills: 0; Quantity :60 Not Available Not Available Not Available azithromy hermilo 500 mg tablet TAKE ONE TABLET BY MOUTH EVERY DAY FOR 3 DAYS 10/28 completed Not Available Not Available Not Available Spiriva with HandiH[employer] r 18 mcg and inhalatio n capsules INHALE THE CONTENTS OF 1 CAPSULE VIA HANDIHAL ER ONCE DAILY DIRECTED 11/17 completed Not Available Not Available Not Available Vitamin B-12 Daily active Frequenc y: daily;Me dication Descript ion: cyanocob alamin; Route:or al; refills: 0 Not Available Not Available Not Available coenzyme Q10 200mg qd active Not Available Not Available Not Available Vitamin D3 Two times a day active Frequenc y: bid;Medi cation Descript ion: cholecal ciferol; Dosage:1 ; Route:or al; refills: 0 Not Available Not Available Not Available Vaqta (PF) 50 unit/mL intramusc ular syringe 09/16 completed Not Available Not Available Not Available Anoro Ellipta 62.5 mcg-25 mcg/actua tion powder for inhalatio n INHALE 1 PUFF BY MOUTH EVERY DAY active Not Available Not Available No t Available Trelegy Ellipta 100 mcg-62.5 mcg-25 mcg powder for inhalatio n INHALE 1 PUFF BY MOUTH EVERY DAY active Not Available Not Available No t Available Fluarix Quad 7640-8755 (PF) 60 mcg (15 mcg x 4)/0.5 mL IM syringe 09/16 completed Not Available Not Available Not Available Flucelvax Quad (PF) 60 mcg (15 mcg x 4)/0.5 mL IM syringe 12/14 completed Not Available Not Available Not Available Trelegy Ellipta 200 mcg-62.5 mcg-25 mcg powder for inhalatio n INHALE 1 PUFF BY MOUTH EVERY DAY active Not Available Not Available No t Available Paxlovid 300 mg (150 mg x 2)-100 mg tablets in a dose pack TAKE TWICE DAILY DIRECTED FOR 5 DAYS 12/14 completed Not Available Not Available Not Available Vitals Date Recorded Body weight Heart rate Oxygen saturation Oxygen saturation in Arterial blood by Pulse oximetry Systolic blood pressure Diastolic blood pressure Provider Name and Address Organization Details Last Updated DateTime 5 03866.5 g 76 /min 96 % 96 % 122 mm[Hg] 76 mm[Hg] Lisa Manning [facility] 5 13:55:40 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 Question Answer Notes LastModified by Organizat ion Details LastModified Time Tobacco Smoking Status Current Every Day [email or web address] 09:[facility]27 Live Alone Or With Others? Alone Information not available 03/07/2017 Marital Status Informatio n not available 03/07/2017 What Was The Date Of Your Most Recent Tobacco Screening? 10/01/2022 [email or web address] Information not available 10/01/2022 How Much Tobacco Do You Smoke? 1 PPD Information not available 08/27/2016 Has Tobacco Cessation Counseling Been Provided? No [email or web address] Information not available 12/14/2021 How Many Years Have You Smoked Tobacco? 20 Information not available 08/27/2016 Sex: Unknown Functional Status Question Answer Note LastModified by Organizat ion Details LastModified Time What is your level of alcohol consumption? 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 Family History Relationship Description Onset Age of this Age Resolved Age Notes LastModified by Organization Details LastModified Time Unspecified Relation Malignant neoplastic disease [email or web address] Not available 2016 09:04:09 Unspecified Relation Hypertensive disorder ewiner Not available 2016 09:04:16 Unspecified Relation Myocardial infarction [email or web address] Not available 08/27 09:04:22 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 Condition Response Osteoporosis/Osteopenia Y Arthritis Y Migraines Y Gynecological HistoryNo gynecological history recorded. Obstetrics History GPAL:G 0 P 0 0 0 0 Past Encounters Encounter ID Performer Location Encounter Start Date Encounter Closed Date Diagnosis/Indication Diagnosis SNOMED-CT Code Diagnosis ICD10 Code Diagnosis Note [id number] ALEX ROLLE MD NEUROLOGY [address] [place] [address] 10/28/2024 13:27:09 10/29/2024 04:12:25 Neck pain 25374055 M54.2 Lumbar radiculopathy 128 871309 M54.16 Health Concerns Section Related Observation LastModified by Organization Detai ls LastModified Time None Recorded Concern Status LastModified by Organization Details LastModified Time None Recorded Payers Encounter Date Sequence Insurance Name Policy Number Policy Evangelista Covered Member ID Evangelista Member ID Guarantor Name 10/28/2024 1 [place] SEBASTIAN ROSADO OF [facility] [place] [employer] (MEDICARE REPLACEMENT REGIONAL PPO) [id number] Brisa Mclean [id number] Brisa Mclean Notes Date Note Type Note Provider Name and Address Organization Details Recorded Time 10/28/2024 text/html She was seen a year ago with [facility] showed mild abnormality suggestive of chronic lower left lumbar radiculopathy. She has been doing alright. She has low back pain at times, [place] when she first stands after sitting for long.No clear radicular pain into the legs.Still can get tingling in the left leg at nite. When she is active and busy, mopping the floor, doing yard work, she mostly does OK. Shoulders have knots in them sometimes. If she is especially active and busy, she can wake up with headache at the back of her head. Will take Advil, have some coffee. This is not every day. Says she has no bone densitywas on reclast. ALEX ROLLE MD [address] [place] [address], [phone], [facility] 10/28/2024 18:01:59 OBGyn Episode No OBEpisode recorded.
[2024-12-01 14:43] VITALS: BP 166/92; PULSE 82; RESP 22; TEMP 36.8; O2SAT 96; BMI 20.1
--- NOTE | 2024-12-01 14:43 | XR_ITS ---
PROCEDURE INFORMATION: Exam: XR Chest Exam date and time: 12/01/2024 3:35 PM Age: 68 years old Clinical indication: Dyspnea; Additional info: SOA cp TECHNIQUE: Imaging protocol: Radiologic exam of the chest. Views: 1 view. COMPARISON: COMPARISON MORE: CT ABDOMEN PELVIS W CON 04/17/2020 1:21 PM COMPARISON MORE: CR XR CHEST 2V 08/02/2024 9:20 PM FINDINGS: Lungs: Unremarkable. No consolidation. Stable granulomatous changes right midlung zone. Pleural spaces: Unremarkable. No pleural effusion. No pneumothorax. Heart/Mediastinum: Unremarkable. No cardiomegaly. Bones/joints: No acute bony abnormalities detected. IMPRESSION: Stable chest. No active disease.
--- NOTE | 2024-12-01 14:48 | [facility].EDCP ---
Discharge Plan Disposition Patient Disposition: Home, Self-Care Chief Complaint: Chest Pain Prescriptions Prescriptions: No Action cholecalciferol (vitamin D3) 25 mcg (1,000 unit) capsule 25 mcg PO DAILY lisinopril 2.5 mg tablet 2.5 mg PO DAILY Qty: 30 2RF Anoro Ellipta 62.5-25 mcg/actuation blister with device 1 inh inhalation DAILY 90 Days Qty: 180 2RF ipratropium-albuterol 0.5 mg-3 mg(2.5 mg base)/3 mL solution for nebulization 3 ml inhalation Q4-6H PRN (Reason: shortness of breath or wheezing) 30 Days Qty: 90 0RF budesonide 3 mg capsule,delayed,extend.release 9 mg PO DAILY Qty: 270 3RF albuterol sulfate 90 mcg/actuation HFA aerosol inhaler 2 puff INHALATION Q6 Patient Comments: INHALE TWO PUFFS BY MOUTH EVERY 6 HOURS NEEDED FOR SHORTNESS OF BREATH OR wheezing Referrals Follow up/Referrals: Loy Cruz MD [Primary Care Provider] - See instructions Ludwig Moss MD [Staff Physician] - See instructions Activity Restrictions/Add. Instructions Additional Instructions/Restrictions: At this time it was felt you are safe to be discharged home. If new or worsening symptoms please do not hesitate to return the emergency department. Please call and schedule appointment with a manager progressive care as soon as you are able if you are unable to get in with them soon please call Dr. Moss and get in with his office as soon as you are able. Make sure you keep an eye on your potassium at your future appointments it was a little bit low today but not dangerous. Clinical Impressions Clinical Impression: Chest pain Print Language Print Language: Occitan Discharge ED Provider: Chao Tse HPI <Chao Tse MD - Last Filed: 12/01/24 15:15> General Chief Complaint: Chest Pain Stated Complaint: CP Time Seen by Provider: 12/01/24 14:27 History of Present Illness HPI narrative: Please note that above description of symptoms, in this electronic medical record under categorization of recalled from ER triage doctor by RN are reflective of an initial nursing assessment, however, is not reflective of my full history and physical exam that was personally taken and clarified. Consequentially, this preceding description of symptoms, which may include the patient's categorized chief complaint in the EMR, do not reflect my personal clinical impression, and the ultimate description of history of present illness and patient stated complaints should be deferred to this section of the note. Unless stated otherwise or congruent with this section of the note, additional signs, symptoms, or incongruence should be interpreted as inaccurate with my clinical impression. Related Data Home Medications ?Medication ?Instructions ?Recorded ?Confirmed albuterol sulfate 90 mcg/actuation 2 puff inhalation Q6 wheezing 08/03/24 11/30/24 aerosol inhaler cholecalciferol (vitamin D3) 25 25 mcg PO DAILY 08/20/24 11/30/24 mcg (1,000 unit) capsule Previous Rx's ?Medication ?Instructions ?Recorded ipratropium 0.5 mg-albuterol 3 mg 3 ml inhalation Q4-6H PRN 09/28/24 (2.5 mg base)/3 mL nebulization shortness of breath or wheezing 30 soln days #90 mL umeclidinium 62.5 mcg-vilanterol 1 inh inhalation DAILY 90 days 09/28/24 25 mcg/actuation powdr for #180 ea inhalation (Anoro Ellipta) budesonide 3 mg 9 mg (3 x 3 mg) PO DAILY #270 ea 11/09/24 capsule,delayed,extended release lisinopril 2.5 mg tablet 2.5 mg PO DAILY #30 tabs 11/30/24 Allergies Allergy/AdvReac Type Severity Reaction Status Date / Time Sulfa (Sulfonamide Allergy Mild rash Verified 11/30/24 14:38 Antibiotics) methocarbamol (From Robaxin) Allergy Unknown Verified 11/30/24 14:38 allergy reaction Penicillins Allergy Unknown Verified 11/30/24 14:38 allergy reaction [facility] <Chao Tse MD - Last Filed: 12/01/24 15:15> [facility] Disclaimer: The information contained in this section may have been updated after the patient was seen, as this information can be updated by other users. 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 (Updated 12/01/24 @ 16:38 by Cyril Altamirano MD) Essential hypertension Dyspnea on exertion History of smoking 30 or more pack years Pulmonary emphysema Tick bite Vaccine counseling Encounter for screening for diabetes mellitus Screening cholesterol level Colon cancer screening Cervical cancer screening Breast cancer screening by mammogram Encounter for annual wellness visit (AWV) in Medicare patient Strep sore throat Otitis media of right ear Sinusitis Low back pain Muscle spasm Back pain Upper respiratory infection Acute viral syndrome Bronchitis Dyspnea Allergy to sulfa drugs Itching Migraine Otitis media Viral syndrome COPD exacerbation Exposure to COVID-19 virus Viral syndrome Syncope and collapse Abdominal pain Fatigue COPD exacerbation Chest pain Lumbar radiculopathy Viral upper respiratory illness Skin problem Surgical History Hx of fusion of cervical spine H/O tubal ligation Family History Father Coronary artery disease Mother Cancer breast Sister Cancer gallbladder Sister Cancer breast Hypertension Son Hyperlipidemia 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 Smoking Status: Current every day smoker years smoked: 30 alcohol intake: never current occupational status: retired Travel in the last 8 weeks?: None caffeine: Yes Have you lived/traveled outside [place] in past 30 days?: No Contact w/someone who lives/traveled outside [place] past 30 days?: No Exposure to someone with infectious disease in past 14 days?: No Do you have a fever (greater than 100.4 F or 38 C)?: No Have you tested positive for COVID-19?: No Exposed to someone with COVID-19 in past 14 days?: No Do you have a sore throat?: No Do you have a cough?: No Do you have any weakness?: No Do you have any diarrhea?: No Are you experiencing any unusual bleeding?: No Do you have any muscle aches/pain?: No Do you have any abdominal pain?: No Are you experiencing loss of taste or smell?: No Other 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 Have you received the Flu Vaccine for this season: No Have you received the Pneumonia Vaccine: Yes <Chao Tse MD - Last Filed: 12/01/24 15:15> ROS Obtained: Yes All systems reviewed & no additional complaints except as documented Physical Exam <Chao Tse MD - Last Filed: 12/01/24 15:15> General General appearance: alert Head Head exam: atraumatic and normocephalic Eye Eye exam: Present normal appearance, PERRL and EOMI Neck Neck exam: Present normal inspection, full ROM and trachea midline Chest Chest inspection: Present normal inspection and symmetric chest wall rise Respiratory Respiratory exam: Absent respiratory distress, wheezes, stridor, accessory muscle use or prolonged expiratory phase Cardiovascular Cardiovascular exam: Present other (Pulses equal symmetric in upper and lower extremities) Abdominal Exam Abdominal exam: Present soft; Absent distention, tenderness or pulsatile mass Extremities Exam Extremities exam: Absent edema Neurological Exam Neurological exam: Present alert, oriented X3 and CN II-XII intact; Absent motor sensory deficit Skin Skin exam: Present warm and dry; Absent diaphoresis or erythema HEART Score <Chao Tse MD - Last Filed: 12/01/24 15:15> HEART Score HEART Score assessment performed?: No Critical Care <Chao Tse MD - Last Filed: 12/01/24 15:15> Critical Care Time Critical Care Time: No Medical Decision Making <Chao Tse MD - Last Filed: 12/01/24 15:15> Medical Records Medical records reviewed: Yes I reviewed the patient's medical records. Bairon Inquiry Pt receiving controlled substance: No Bairon was queried for this patient: No Vital Signs Vital Signs: 12/01/24 14:43 12/01/24 15:00 12/01/24 15:30 Temperature 98.2 F Temperature Source Oral Pulse Rate 38 L Pulse Rate [Right] 82 Respiratory Rate 22 14 26 H Blood Pressure 136/80 150/93 H Blood Pressure [Right Arm] 166/92 H Blood Pressure Mean [Right Arm] 116 Blood Pressure Source [Right Arm] Automatic Cuff 02 Sat by Pulse Oximetry 96 100 Oxygen Delivery Method Room Air Lab Data Labs: Lab Results 12/01/24 14:35: WBC 9.0, RBC 4.16 L, Hgb 12.4, Hct 38.7, MCV 93.0, MCH 29.8, MCHC 32.0, RDW 14.0, Plt Count 287, MPV 9.3, Neut % (Auto) 59.6, Lymph % (Auto) 26.1, Nuckolls % (Auto) 10.9 H, Eos % (Auto) 2.6, Baso % (Auto) 0.7, Neut # (Auto) 5.3, Lymph # (Auto) 2.3, Nuckolls # (Auto) 1.0, Eos # (Auto) 0.2, Baso # (Auto) 0.1, PT 10.2, INR 0.90, APTT 25.5, Sodium 140, Potassium 3.2 L, Chloride 108 H, Carbon Dioxide 27, Anion Gap 8.2, BUN 10, Creatinine 1.00, Estimated GFR 55 L, Est GFR ( Amer) 67, Glucose 102 H, Hemoglobin A1c 5.5, Calcium 8.8, Magnesium 1.8, Total Bilirubin 0.2, AST 30, ALT 20, Alkaline Phosphatase 63, Troponin I < 0.01, Total Protein 6.9, Albumin 4.1, Globulin 2.8, Albumin/Globulin Ratio 1.5, Triglycerides 176 H, Cholesterol 224 H, LDL Cholesterol Direct 117.63, VLDL Cholesterol 35, HDL Cholesterol 54, Cholesterol/HDL Ratio 4.1 H, HCV Ab MEG w/Rflx PCR Qn Negative, HIV Ag/Ab Combo Qual Negative 12/01/24 14:35 12/01/24 14:35 Response Orders (Tests/Meds): ED MEDICATIONS Discontinued Medications Generic Name Dose Route Start Last Admin Trade Name Freq PRN Reason Stop Dose Admin Potassium Chloride 60 meq 12/01/24 15:15 12/01/24 15:21 Potassium Chloride 20meq Tab PO 12/01/24 15:16 60 meq ONCE ONE Administration ORDERS Category Date Time Status XR chest portable Stat Exams 12/01/24 14:43 Completed Complete Blood Count Auto Diff Stat Lab 12/01/24 14:35 Completed Comprehensive Metabolic Panel Stat Lab 12/01/24 14:35 Completed HIV Combo Stat Lab 12/01/24 14:35 Completed Hemoglobin A1C Stat Lab 12/01/24 14:35 Completed Hepatitis C Ab Qual. W/ RFX Stat Lab 12/01/24 14:35 Completed Lipid Panel Stat Lab 12/01/24 14:35 Completed Magnesium Stat Lab 12/01/24 14:35 Completed PT INR [Prothrombin Time INR] Stat Lab 12/01/24 14:35 Completed PTT [Activated Partial Thrombo Time] Stat Lab 12/01/24 14:35 Completed Troponin I Q3H Lab 12/01/24 17:45 Ordered Troponin I Q3H Lab 12/01/24 20:45 Ordered Troponin I Stat Lab 12/01/24 14:35 Completed MDM Narrative Medical Decision Narrative: This is a 68-year-old female presenting with hypertension and intermittent chest pains. She states that the hypertensions been going on for a while, saw her family doctor who put her on lisinopril, but she is continuing to have high blood pressure readings at home, so called family doctor, family doctor recommend she come to the emergency department. She has been self-medicating with lisinopril and took up to 7.5 mg today. Went to the urgent care just prior to this, they stated that she should just come to the emergency department. Patient presents to the emergency department. Not currently having chest pains, last episode of chest pain was earlier today and last night. No shortness of breath, nausea, vomiting, cough, neurologic deficits, radiation of the pain. It last for just a couple seconds and goes away. History obtained with patient and . On arrival, very clinically well. Heart and lungs are clear, mildly hypertensive in the 160s, nontachycardic. Lungs are clear. Independent interpretation of EKG with sinus rhythm 81 bpm with PA 134, QRS 78, QTc 437. Normal axis no acute ischemic change. Patient placed on clinical nurse occupational medicine and continuous pulse oximetry with initial blood pressure 166/92, heart rate of 82, O2 sat 96% on room air. Workup started. Independently interpreted workup with nonactionable CBC. Chemistry with mild hypokalemia, this was repleted p.o. Triglycerides elevated. Rest of workup pending at time of handoff to oncoming physician. 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 Electronic soldering machine tender of the spoken language may permit errors. Although I have reviewed the note, some errors may still exist. <Cyril Altamirano MD - Last Filed: 12/01/24 16:38> Vital Signs Vital Signs: 12/01/24 14:43 12/01/24 15:00 12/01/24 15:30 Temperature 98.2 F Temperature Source Oral Pulse Rate 38 L Pulse Rate [Right] 82 Respiratory Rate 22 14 26 H Blood Pressure 136/80 150/93 H Blood Pressure [Right Arm] 166/92 H Blood Pressure Mean [Right Arm] 116 Blood Pressure Source [Right Arm] Automatic Cuff 02 Sat by Pulse Oximetry 96 100 Oxygen Delivery Method Room Air Lab Data Labs: Lab Results 12/01/24 14:35: WBC 9.0, RBC 4.16 L, Hgb 12.4, Hct 38.7, MCV 93.0, MCH 29.8, MCHC 32.0, RDW 14.0, Plt Count 287, MPV 9.3, Neut % (Auto) 59.6, Lymph % (Auto) 26.1, Nuckolls % (Auto) 10.9 H, Eos % (Auto) 2.6, Baso % (Auto) 0.7, Neut # (Auto) 5.3, Lymph # (Auto) 2.3, Nuckolls # (Auto) 1.0, Eos # (Auto) 0.2, Baso # (Auto) 0.1, PT 10.2, INR 0.90, APTT 25.5, Sodium 140, Potassium 3.2 L, Chloride 108 H, Carbon Dioxide 27, Anion Gap 8.2, BUN 10, Creatinine 1.00, Estimated GFR 55 L, Est GFR ( Amer) 67, Glucose 102 H, Hemoglobin A1c 5.5, Calcium 8.8, Magnesium 1.8, Total Bilirubin 0.2, AST 30, ALT 20, Alkaline Phosphatase 63, Troponin I < 0.01, Total Protein 6.9, Albumin 4.1, Globulin 2.8, Albumin/Globulin Ratio 1.5, Triglycerides 176 H, Cholesterol 224 H, LDL Cholesterol Direct 117.63, VLDL Cholesterol 35, HDL Cholesterol 54, Cholesterol/HDL Ratio 4.1 H, HCV Ab MEG w/Rflx PCR Qn Negative, HIV Ag/Ab Combo Qual Negative Response Orders (Tests/Meds): ED MEDICATIONS Discontinued Medications Generic Name Dose Route Start Last Admin Trade Name Freq PRN Reason Stop Dose Admin Potassium Chloride 60 meq 12/01/24 15:15 12/01/24 15:21 Potassium Chloride 20meq Tab PO 12/01/24 15:16 60 meq ONCE ONE Administration ORDERS Category Date Time Status XR chest portable Stat Exams 12/01/24 14:43 Completed Complete Blood Count Auto Diff Stat Lab 12/01/24 14:35 Completed Comprehensive Metabolic Panel Stat Lab 12/01/24 14:35 Completed HIV Combo Stat Lab 12/01/24 14:35 Completed Hemoglobin A1C Stat Lab 12/01/24 14:35 Completed Hepatitis C Ab Qual. W/ RFX Stat Lab 12/01/24 14:35 Completed Lipid Panel Stat Lab 12/01/24 14:35 Completed Magnesium Stat Lab 12/01/24 14:35 Completed PT INR [Prothrombin Time INR] Stat Lab 12/01/24 14:35 Completed PTT [Activated Partial Thrombo Time] Stat Lab 12/01/24 14:35 Completed Troponin I Q3H Lab 12/01/24 17:45 Ordered Troponin I Q3H Lab 12/01/24 20:45 Ordered Troponin I Stat Lab 12/01/24 14:35 Completed MDM Narrative Medical Decision Narrative: This is a 68-year-old female presenting with hypertension and intermittent chest pains. She states that the hypertensions been going on for a while, saw her family doctor who put her on lisinopril, but she is continuing to have high blood pressure readings at home, so called family doctor, family doctor recommend she come to the emergency department. She has been self-medicating with lisinopril and took up to 7.5 mg today. Went to the urgent care just prior to this, they stated that she should just come to the emergency department. Patient presents to the emergency department. Not currently having chest pains, last episode of chest pain was earlier today and last night. No shortness of breath, nausea, vomiting, cough, neurologic deficits, radiation of the pain. It last for just a couple seconds and goes away. History obtained with patient and . On arrival, very clinically well. Heart and lungs are clear, mildly hypertensive in the 160s, nontachycardic. Lungs are clear. Independent interpretation of EKG with sinus rhythm 81 bpm with PA 134, QRS 78, QTc 437. Normal axis no acute ischemic change. Patient placed on clinical nurse occupational medicine and continuous pulse oximetry with initial blood pressure 166/92, heart rate of 82, O2 sat 96% on room air. Workup started. Independently interpreted workup with nonactionable CBC. Chemistry with mild hypokalemia, this was repleted p.o. Triglycerides elevated. Rest of workup pending at time of handoff to oncoming physician. 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 Electronic soldering machine tender of the spoken language may permit errors. Although I have reviewed the note, some errors may still exist. Cyril Altamirano: Upon assumption of care patient is hemodynamically stable. Workup reviewed by me, hematologic labs are largely nonactionable very mild hypokalemia which has been repleted prior to my assumption of care, no significant leukocytosis or anemia no DOMINIC or critical electrolyte abnormality, initial troponin undetectably low. Chest x-ray informally interpreted by me, no acute findings, chronic interstitial emphysematous changes. Upon repeat evaluation patient was resting comfortably in bed no ongoing pain given stuttering subacute on chronic chest pain it was felt that all emergent causes have been ruled out and that she would not benefit from serial troponins. She was given multiple extensive return precautions verbalized understanding will follow-up with cardiology on an outpatient basis.
[2024-12-01 14:49] LABS: Basophils # 0.1 K/mm3 (0-0.2); Basophils % 0.7 % (0.1-2.0); Eosinophils # 0.2 Kmm3 (0.0-0.4); Eosinophils % 2.6 % (0.1-12.0); Hematocrit 38.7 % (37.0-47.0); Hemoglobin 12.4 g/dL (12.2-16.2); Immature Granulocytes # 0.01 10^3uL; Immature Granulocytes % 0.1 %; Lymphocytes # 2.3 K/mm3 (0.7-4.5); Lymphocytes % 26.1 % (10-50); Mean Corpuscular Hemoglobin 29.8 pg (27.0-31.2); Mean Platelet Volume 9.3 fl (7.4-10.4); Monocytes % 10.9 % (1.7-9.3); Neutrophils # 5.3 K/mm3 (1.8-7.8); Neutrophils % 59.6 % (37.0-80.0); Nucleated Red Blood Cells # 0 10^3/uL; Nucleated Red Blood Cells % 0 %; Platelet Count 287 K/mm3 (142-424); Red Blood Count 4.16 M/mm3 (4.20-5.40); Red Cell Distribution Width-SD 47.5 fL
[2024-12-01 14:54] LABS: Albumin Level 4.1 g/dl (3.5-5.0); Chloride 108 mmol/L (98-107); Sodium 140 mmol/L (136-145)
[2024-12-01 14:55] LABS: Potassium 3.2 mmoL/L (3.5-5.1)
[2024-12-01 14:57] LABS: Activated Partial Thrombo Time 25.5 seconds (22.8-30.6); Alanine Aminotransferase 20 U/L (12-78); Albumin/Globulin Ratio 1.5 (1.1-1.8); Anion Gap 8.2 mEq/L (5-15); Aspartate Amino Transferase 30 U/L (14-36); Blood Urea Nitrogen 10 mg/dl (7-17); Carbon Dioxide 27 mmol/L (22.0-30.0); Estimated Glomerular Filt Rate 55 ml/min (>60); GFR (African American) 67 ML/MIN (>60); Globulin 2.8 g/dL (1.3-3.2); Prothrombin Time 10.2 seconds (10.1-12.5); Total Protein,Serum 6.9 g/dl (6.3-8.2)
[2024-12-01 14:58] LABS: Alkaline Phosphatase 63 U/L (38-126); Bilirubin,Total 0.2 mg/dl (0.2-1.3); Calcium 8.8 mg/dl (8.4-10.2); Chol/HDL Ratio 4.1 (1-3.5); Cholesterol 224 mg/dl (140-200); Glucose 102 mg/dl (74-100); HDL Cholesterol 54 mg/dl (40-60); Magnesium 1.8 mg/dl (1.6-2.3); Triglycerides 176 mg/dl (30-150); VLDL Cholesterol 35 mg/dL (0-40)
[2024-12-01 15:00] VITALS: BP 136/80; PULSE 66; RESP 14; O2SAT 100
[2024-12-01 15:09] LABS: Hemoglobin A1C 5.5 % (4.0-6.0)
[2024-12-01 15:10] LABS: Direct LDL Cholesterol 117.63 mg/dL (100-129)
[2024-12-01 15:18] LABS: Troponin I < 0.01 ng/ml (0.00-0.034)
[2024-12-01] MEDS: POTASSIUM CHLORIDE 20MEQ TAB 60 MEQ PO (15:21)
[2024-12-01 15:30] VITALS: BP 150/93; RESP 26
[2024-12-01 16:02] LABS: HIV Combo NEGATIVE (Negative)
[2024-12-01 16:09] LABS: Hepatitis C Ab Qual. W/ RFX NEGATIVE (Negative)
[2024-12-01 17:20] VITALS: BP 154/94; PULSE 74; RESP 17; TEMP 36.8; O2SAT 96
== END 2024-12-01 17:23 | disposition home or self-care (01) ==
PROVIDERS: Emergency Provider Emergency Medicine; PCP Family Medicine
DX: R07.89 Other chest pain (principal); E87.6 Hypokalemia; I10 Essential (primary) hypertension; F17.210 Nicotine dependence, cigarettes, uncomplicated
CPT/HCPCS: 71045; 80053; 80061; 83036; 83735; 84484; 85025; 85610; 85730; 86803; 87389; 93005; 99284

== ENCOUNTER 2024-12-22 12:36 | Outpatient (CLI) | payer MEDICARE, SELFPAY ==
--- OUTSIDE RECORDS SUMMARY | 2024-12-22 12:39 | XMS_ITS | Data Portability ---
Author Organization [facility] KAY Unger [place] Address [address] [place] [address] Care Team Providers Care Rn Sexual Assault Name Role Phone VINITA HARDIN Referring Provider ULYSSES LAWSON Primary Care Provider [phone] Assessment Encounter Date Assessment Date Assessment LastModified by Organization Details LastModified Time 10/01/2022 10/01/2022 1. Chronic neck pain 2. Cervical radiculopathy 3. Low back pain, probable lumbar radiculopathy. She has worsening symptoms. Will arrange for cervical MRI [place] to rule out early myelopathy b/c borderline brisk reflexes. Will include lumbar MRI as well. [email or web address] Not available 10/01/2022 18:40:11 11/26/2022 11/26/2022 Mrs. [...] over telehealth. I will arrange for NCS/EMG. [email or web address] Not available 08/18/2023 16:51:09 10/28/2024 10/28/2024 1. Chronic low back pain - this is generally stablke 2. Mild chronic left lower lumbar radiculopathy 3. Neck pain at times; h/o ACDF Mostly she seems stable. She agrees. If back pain worsens/changes or any new symptoms arise, she knows to call. [email or web address] Not available 10/28/2024 18:01:48 Plan of Treatment Reminders Order Date Submit Date Provider Last Modified By Organization Details Last Modified Time Details Appointments None recorded. Lab None recorded. Referral None recorded. Procedures nerve conduction study/EMG, lower extremity (PROC) 2023 024 [email or web address] Alex Antony MD, [address] [place], [address], 4 07:48:35 Surgeries None recorded. Imaging MRI, lumbar spine, w/o contrast 2022 023 [facility], [address] [place], [address], 3 11:52:37 MRI, cervical spine, w/o contrast 2022 023 [email or web address] 3 [facility], [address] [place], [address], 3 08:09:55 Medication Orders cyclobenzap rine 10 mg tablet 2024 025 [facility], [address] [facility] [address], [id number], 5 12:32:40 Patient TargetsNo targets recorded. Patient InstructionsNo instructions recorded. Reason for Referral None Reported. Results Created Date Observation Date Name Description Value Unit Range Abnormal Flag Note LastModifiedBy Organization Detail LastModifiedTime 10/20/1910/19/2022 MRI, lumba r spine , w/o contr ast [facility] [address] [facility] [place] [address] Blas garcia Name: BRISA garcia : 957 [...] 023 11:47 AM [facility] [address] [place], [address], 11/04/2022 13:37:55 08/25/19 24 08/23/2023 nerve condu ction study /EMG, lower extre mity (PROC ) No observ ation record ed. [email or web address] Alex Antony MD [address] [place], [address], 08/25/2023 13:02:25 Result Notes None recorded. Problems Name Problem SNOMED Code Status Onset Date Resolution Date Notes Provider Name and Address Organization Details Recorded Time Paresthes ia 15816684 Active 2015 Monica Arrington) [facility] 6 10:52:55 Pain in right lower limb 777287333 Active 2015 From Automated Load;Provi steph: Madie Hopper;Stat us: Active Not Available [facility] 7 06:51:54 Headache 00797166 Active 2015 From Automated Load;Provi steph: Madie Hopper;Stat us: Active Not Available [facility] 6 09:40:34 Neck pain 51071512 Active 2015 From Automated Load;Provi steph: Madie Hopper;Stat us: Active Not Available [facility] 6 09:40:34 Cervical disc disorder 453291694 Active 2015 From Automated Load;Provi steph: Madie Hopper;Stat us: Active Not Available [facility] 6 09:40:34 Problem Notes None recorded. Procedures Surgical History Date Name Laterality Status Provider Name and Address Organization Details Recorded Time 08/23/19 24 Electromyography (EMG) with Nerve Conduction Study (NCV) completed Monica Taylor (Nicky) [facility] 08/23/2023 14:37:25 12/09/19 22 tooth extraction completed Anna Sparks [facility] 12/14/2021 09:20:42 07/17/20 16 Electromyography (EMG) with Nerve Conduction Study (NCV) completed Monica Taylor (Nicky) [facility] 07/17/2016 09:45:02 06/29/20 14 Neck Surgery completed Shona Reynolds [facility] 08/27/2016 09:06:41 Imaging Results None recorded. Procedure Notes None recorded. Medical Equipment None Reported. Allergies Allergen ID Allergen Name Allergen Category Reaction Reaction Severity Criticality Documentation Date Start Date Code Code System Note Provider Name and Address Organization Details Recorded Time 055159 Robaxin medicatio n Not available Not available Not available 06/14/2016201395 5 RxNorm Comme nt: Creat ed By: Evelyn palacios;Cr eated Date: 014 11:13 :17 AM; Not Available [facility] 6 13:39:43 138287 amoxicill in medicatio n Not available Not available Not available 09/12/2017 723 RxNorm Arlen duran [facility] 8 08:45:10 819574 Product containin g penicilli n (product) medicatio n Not available Not available Not available 12/14/2021 62770 8001 SNOMED Anna Bridger [facility] 09:17:41 Medications Name Sig Start Date Stop [...] needed by oral route. 2022 active [facility]: 0904-588 0-61 Not Available Not Available Not [...] Updated DateTime 08/02/2023 152.4 cm 16.8 kg/m2 41937.94 g [facility] 08/02/2023 14:56:34 Date Recorded Body weight Oxygen saturation Oxygen saturation in Arterial blood by Pulse oximetry Heart rate Systolic blood pressure Diastolic blood pressure Provider Name and Address Organization Details Last Updated DateTime 3 45406.6 1 g 97 % 97 % 92 /min 122 mm[Hg] 72 mm[Hg] Monica Hutson [facility] 3 14:19:47 Date Recorded Body weight Heart rate Oxygen saturation Oxygen saturation in Arterial blood by Pulse oximetry Systolic blood pressure Diastolic blood pressure Provider Name and Address Organization Details Last Updated DateTime 5 63737.5 g 76 /min 96 % 96 % 122 mm[Hg] 76 mm[Hg] [facility] 5 13:55:40 Date Recorded Body height Body mass index (BMI) Body weight Systolic blood pressure Diastolic blood pressure Provider Name and Address Organization Details Last Updated DateTime 11/26/2022 152.4 cm 17 kg/m2 99873.54 g 126 mm[Hg] 72 mm[Hg] Dianna Del Angel [facility] 3 09:59:39 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 Question Answer Notes LastModified by OneTouch Details LastModified Time Tobacco Smoking Status Current Every [facility] 08/27/2016 09:04:27 Live Alone Or With Others? Alone Information not available 03/07/2017 Marital Status Informatio n not available 03/07/2017 What Was The Date Of Your Most Recent Tobacco Screening? 10/01/2022 [email or web address] Information not available 10/01/2022 How Much Tobacco Do You Smoke? 1 PPD Information not available 08/27/2016 Has Tobacco Cessation Counseling Been Provided? No [email or web address] Information not available 12/14/2021 How Many Years Have You Smoked Tobacco? 20 Information not available 08/27/2016 Sex: Unknown Functional Status Question Answer Note LastModified by OneTouch Details LastModified Time What is your level of alcohol consumption? 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 [employer] Information not available 03/07/2017 Mental Status None [...] SNOMED-CT Code Diagnosis ICD10 Code Diagnosis Note [id number] MADIE HOPPER MD NEUROLOGY [facility] CL[facility] [address] [place] [address] 07/17/2016 08:36:36 07/17/2016 10:23:18 Paresthesia 54450007 R20.2 Muscle weakness 54371279 M62.81 Muscle pain 72240315 M79 .1 Skin sensa tion disturbance 15788375 R20.9 [id number] [facility]ENN[facility] [address] [place] [address] 08/27/2016 08:40:38 08/27/2016 14:00:43 Cervical radiculopathy 97942816 M54.12 [id number] JENNIFER COOPER MD NEUROSURG [facility] CLOSED [address] [place] [address] 10/08/2016 10:02:12 10/08/2016 13:45:17 Cervical radiculopathy 41551962 M54.12 15 minutes spent reviewing images, discussing the diagnosis and coordinati ng care. [id number] MADIE HOPPER MD NEUROLOGY [facility] CLOSED [address] [place] [address] 03/07/2017 08:17:12 03/07/2017 09:16:01 Cervicogenic headache 608224929 G44.89 Mrs. Mclean is a 61-year-ol d [...] than 50% time in counseling Muscle pain 69297249 M79 .1 -as above. Paresthesia 23164361 R20 .2 LLE, possibly from cervical cord compressio n; no low back pain, reflexes intact and brisk Pain in le ft lower limb 689148343 M79.605 pain and weakness LLE - as above [id number] MADIE HOPPER MD NEUROLOGY [facility] CL[facility] [address] [place] [address] 09/12/2017 08:33:47 09/12/2017 10:33:24 Paresthesia 63008342 R20.2 LLE, most likely from cervical cord compressio n; no low back pain, reflexes intact and brisk, weakness in upper motor neuron pattern Cervicogenic headache 27 7707695 G44.89 Mrs. Mclean is a 61-year-ol d [...] inue cyclobenza gloria 10 mg qhs-Contin ue DiL80-Mgms me magnesium daily- She is interested in CBD oil. This may be helpful. I've provided literature .- if pain signficant worsens, she is to get back in with Dr. Cooper FU 12 month or sooner PRN Muscle pain 65598706 M79 .1 -as above. 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 Cervical myelopathy 2025 95875 G95.9 she has exam finding and symptoms suggestive of myelopathy - following with Dr. 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 Recent ER visit for BLE giving out, severe pain both legs and L arm. Suspect from cervical stenosis. - scheduled wtih Dr. Cooper Headache 97044177 R51 cervicogen ic -- f/u with Dr. Cooper Cervicogenic headache 27 9828916 G44.89 Mrs. Mclean is a 62-year-ol d [...] d she discuss SL CBD oil with [facility] FU 12 month or sooner PRN Muscle pain 60927481 M79 .12 -as above. Paresthesia 40713819 R20 .2 LLE, most likely from cervical cord compressio n; no low back pain, reflexes intact and brisk, weakness in upper motor neuron pattern Pain in le ft lower limb 722140915 M79.605 pain and weakness LLE - as above LUE/LLE paresthesi as, pain LLE Cervical myelopathy 2025 28783 G95.9 she has exam finding and symptoms suggestive of myelopathy - following with Dr. Cooper on as needed basis 40 min appt with greater than 50% in counseling regarding probalbe cervical source of pain, weakness, importance of surgery if determined by Dr. Cooper Tobacco user 494732310 Z 72.0 She is still smoking 1PPD. Counseled that smoking contribute s to cervical spondylosi s, among so many other health risks including increased risk for heart attack, stroke and cancer. 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 Cervicogenic headache 27 7967958 G44.89 Mrs. Mclean is a 63-year-ol d [...] resume magnesium qhs- Continue CBD oil with [facility] FU 12 month or sooner PRN Muscle pain 28807037 M79 .12 -as above. consider trigger point injections Cervical myelopathy 2025 67403 G95.9 she has exam finding and symptoms suggestive of myelopathy - following with Dr. Cooper on as needed basis 30 min appt with greater than 50% in counseling regarding probable cervical source of pain, weakness Tobacco user 852060420 Z 72.0 She is still smoking 1PPD. Counseled that smoking contribute s to cervical spondylosi s, among so many other health risks including increased risk for heart attack, stroke and cancer. 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 - juan richard -- as above for headaches - stop smoking - continue vitamins, vit D, Ca and start a MVI Cervicogenic headache 27 7104655 G44.89 Mrs. Mclean is a 64-year-ol d [...] and resume reacted magnesium qhs - chin jimmies/stre tches as demonstrat ed in clinic today [...] 12 min 2 min Rx Muscle pain 79922080 M79 .12 -as above. consider trigger point injections Cervical myelopathy 2025 57489 G95.9 she has exam finding and symptoms suggestive of myelopathy - following with Dr. Cooper on as needed basis Tobacco user 359143075 Z 72.0 She is still smoking 1PPD. Again counseled that smoking contribute s to cervical spondylosi s, among so many other health risks including increased risk for heart attack, stroke and cancer. [id number] ALEX ANTONY MD NEUROLOGY [facility] [address] [place] [address] 1 12/14/2021 08:18:29 12/14/2021 11:06:39 Migraine 24890600 G43.909 Neck pain 43615051 M54.2 [id number] ALEX ANTONY MD NEUROLOGY [facility] [address] [place] [address] 1 10/01/2022 14:03:41 10/01/2022 14:53:27 Spinal stenosis in cervical region 04056736 M48.02 Spinal cord disease 4852 2002 G95.9 Lumbar radiculopathy 128 445773 M54.16 [id number] JENNIFER COOPER MD NEUROSURG [facility] CLOSED [address] [facility] [address] [place] [address] 11/26/2022 09:39:10 11/27/2022 04:45:38 Lumbar radiculopathy 155668946 M54.16 [id number] ALEX ANTONY MD NEUROLOGY [facility] [address] [place] [address] 1 08/02/2023 14:54:56 08/19/2023 04:24:09 Pain in left lower limb 283236951 M79.605 [id number] ALEX ANTONY MD NEUROLOGY [facility] [address] [place] [address] 1 08/23/2023 12:43:25 08/24/2023 04:25:39 Lumbar radiculopathy 220360490 M54.16 Paresthesi a of lower extremity 972735070 R20.2 [id number] ALEX ANTONY MD NEUROLOGY [facility] [address] [place] [address] 10/28/2024 13:27:09 10/29/2024 04:12:25 Neck pain 84639837 M54.2 Lumbar radiculopathy 128 365234 M54.16 Health Concerns Section Related Observation LastModified by Organization Detai ls LastModified Time None Recorded Concern Status LastModified by Organization Details LastModified Time None Recorded Advance Directives Directive None Recorded Payers Insurance Date Sequence Insurance Name Policy Number Policy Evangelista Covered Member ID Evangelista Member ID Guarantor Name 06/15/2020 1 [place] [id number] Brisa R Vinay [id number] Brisa R Vinay 10/25/2024 1 [place]MEDICARE REPLACEMENT REGIONAL PPO) [id number] Brisa R Vinay [id number] Brisa R Vinay 12/14/2021 1 [place] [id number] Brisa R Vinay [id number] Brisa R Vinay Notes Date Note [...] 2019 but not done. ALEX ANTONY MD [address] [place] [address], [address], [facility] 10/01/2022 18:40:30 11/26/2022 text/html Mrs. [...] lumbar spine performed at [facility] on October 19, 2022. JENNIFER COOPER MD [address] [place] [address], [address], [facility] 11/26/2022 10:21:03 08/02/2023 text/html Visit today is b eing conducted via telehealth using both audio/video. The patient confirms that he/she is physically located in [place] at the time of this visit. Patient [...] and the latter pursued. ALEX ANTONY MD [address] [place] [address], [address], [facility] 08/18/2023 16:51:26 10/28/2024 text/html She was seen a year ago with tingling of the left leg distally in bed at [facility].EMG showed mild abnormality suggestive of chronic lower [...] has no bone densitywas on reclast. ALEX ANTOYN MD [facility] [place], [address], [facility] 10/28/2024 18:01:59 OBGyn Episode No OBEpisode recorded.
--- OUTSIDE RECORDS SUMMARY | 2024-12-22 12:39 | XMS_ITS | Continuity of Care Document ---
Author Organization [facility], NEUROLOGY [facility] Address [address] [place] [address] Care Team Providers Care Manager Mortgage Name Role Phone VINITA HARDIN Referring Provider ULYSSES LAWSON Primary Care Provider [phone] Assessment Encounter Date Assessment Date Assessment LastModified by Organization Details LastModified Time 10/28/2024 10/28/2024 1. Chronic low back pain - this is generally stablke 2. Mild chronic left lower lumbar radiculopathy 3. Neck pain at times; h/o ACDF Mostly she seems stable. She agrees. If back pain worsens/changes or any new symptoms arise, she knows to call. [email or web address] Not available 10/28/2024 18:01:48 Plan of Treatment Reminders Order Date Submit Date Provider Last Modified By Organization Details Last Modified Time Details Appointments None recorded. Lab None recorded. Referral None recorded. Procedures None recorded. Surgeries None recorded. Imaging None recorded. Medication Orders cyclobenzap rine 10 mg tablet 2024 025 [facility], Critical access hospital0 [facility] [address], [place], [id number], 12:32:40 Patient TargetsNo targets recorded. Patient InstructionsNo instructions recorded. Reason for Referral None Reported. Problems Name Problem SNOMED Code Status Onset Date Resolution Date Notes Provider Name and Address Organization Details Recorded Time Paresthjohn abdalla 75697106 Active 2015 Monica Taylor (Nicky) [facility] 12/27/201 6 10:52:55 Pain in right lower limb 543961991 Active 2015 From Automated Load;Provi steph: Madie Hopper;Stat us: Active Not Available [facility] 7 06:51:54 Headache 37024262 Active 2015 From Automated Load;Provi steph: Madie Hopper;Stat us: Active Not Available [facility] 6 09:40:34 Neck pain 49396433 Active 2015 From Automated Load;Provi steph: Madie Hopper;Stat us: Active Not Available [facility] 6 09:40:34 Cervical disc disorder 125886755 Active 2015 From Automated Load;Provi steph: Madie Hopper;Stat us: Active Not Available [facility] 6 09:40:34 Problem Notes None recorded. Procedures Surgical History Date Name Laterality Status Provider Name and Address Organization Details Recorded Time 08/23/19 24 Electromyography (EMG) with Nerve Conduction Study (NCV) completed Monica Taylor (Nicky) [facility] 08/23/2023 14:37:25 12/09/19 22 tooth extraction completed Anna Sparks [facility] 12/14/2021 09:20:42 07/17/20 16 Electromyography (EMG) with Nerve Conduction Study (NCV) completed Monica Taylor (Nicky) [facility] 07/17/2016 09:45:02 06/29/20 14 Neck Surgery completed Shona Reynolds [facility] 08/27/2016 09:06:41 Imaging Results None recorded. Procedure Notes None recorded. Medical Equipment None Reported. Allergies Allergen ID Allergen Name Allergen Category Reaction Reaction Severity Criticality Documentation Date Start Date Code Code System Note Provider Name and Address Organization Details Recorded Time 516026 Robaxin medicatio n Not available Not available Not available 06/14/20162013 5 RxNorm Comme nt: Creat ed By: Evelyn Mccoy eated Date: 014 11:13 :17 AM; Not Available [facility] 6 13:39:43 352135 amoxicill in medicatio n Not available Not available Not available 09/12/2017 723 RxNorm Arlen duran [facility] 8 08:45:10 136896 Product containin g penicilli n (product) medicatio n Not available Not available Not available 12/14/2021 42101 8001 SNSANTA Sparks [facility] 2 09:17:41 Medications Name Sig Start [...] as needed by oral route. [address] [facility]: 0904-588 0-61 Not Available Not Available [...] Not Available No t Available Fluarix Quad 7525-1807 (PF) 60 mcg (15 mcg x 4)/0.5 [...] Address Organization Details Last Updated DateTime 5 47346.5 g 76 /min 96 % 96 % 122 mm[Hg] 76 mm[Hg] Lisa Manning [facility] 5 13:55:40 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 Question Answer Notes LastModified by Organizat ion Details LastModified Time Tobacco Smoking Status Current Every Day [facility] 08/27/2016 09:04:27 Live Alone Or With Others? Alone Information not available 03/07/2017 Marital Status Informatio n not available 03/07/2017 What Was The Date Of Your Most Recent Tobacco Screening? 10/01/2022 [email or web address] Information not available 10/01/2022 How Much Tobacco Do You Smoke? 1 PPD Information not available 08/27/2016 Has Tobacco Cessation Counseling Been Provided? No [email or web address] Information not available 12/14/2021 How Many Years Have You Smoked Tobacco? 20 Information not available 08/27/2016 Sex: Unknown Functional Status Question Answer Note LastModified by Organizat ion Details LastModified Time What is your level of alcohol consumption? None [email or web address] Information not available 12/14/2021 What is your [...] SNOMED-CT Code Diagnosis ICD10 Code Diagnosis Note [id number] ALEX ROLLE MD NEUROLOGY [facility] [address] [place] [address] 10/28/2024 13:27:09 10/29/2024 04:12:25 Neck pain 72815718 M54.2 Lumbar radiculopathy 128 498882 M54.16 Health Concerns Section Related Observation LastModified by Organization Detai ls LastModified Time None Recorded Concern Status LastModified by Organization Details LastModified Time None Recorded Payers Encounter Date Sequence Insurance Name Policy Number Policy Evangelista Covered Member ID Evangelista Member ID Guarantor Name 10/28/2024 1 [place] [facility] MEDIBLUE ACCESS (MEDICARE REPLACEMENT REGIONAL PPO) [id number] Brisa Mclean [id number] Brisa Mclean Notes Date Note Type [...] bone densitywas on reclast. ALEX ROLLE MD [facility] [place], [address], [facility] 10/28/2024 18:01:59 OBGyn Episode No OBEpisode recorded.
[2024-12-22] MEDS: ALBUTEROL 0.083% 2.5 MG/3 ML NEB IH (13:30)
--- NOTE | 2024-12-22 13:30 | PC.NURSE ---
PFT and 6 Minute Walk Test completed without incident. Albuterol 0.083% given via HHN, per written protocol, Pt tolerated tx well.
== END 2024-12-22 23:59 | disposition home or self-care (01) ==
LOC: RT 12:37
PROVIDERS: PCP Family Medicine; Visit Provider Internal Medicine Pulmonary Disease
DX: J44.9 Chronic obstructive pulmonary disease, unspecified (principal)
CPT/HCPCS: 94060; 94618; 94726; 94729

== ENCOUNTER 2024-12-23 11:42 | Outpatient (CLI) | payer MEDICARE, SELFPAY ==
--- OUTSIDE RECORDS SUMMARY | 2024-12-18 11:49 | XMS_ITS | Data Portability ---
Author Organization [facility] KAY Unger RETSOF CLOSED Address [address] [place] [address] Care Team Providers Care Kennel Helper Name Role Phone VINITA HARDIN Referring Provider [phone] ULYSSES LAWSON Primary Care Provider Assessment Encounter Date Assessment Date Assessment LastModified by Organization Details LastModified Time 10/01/2022 10/01/2022 1. Chronic neck pain 2. Cervical radiculopathy 3. Low back pain, probable lumbar radiculopathy. She has worsening symptoms. Will arrange for cervical MRI [place] to rule out early myelopathy b/c borderline brisk reflexes. Will include lumbar MRI as well. Not available 10/01/2022 18:40:11 11/26/2022 11/26/2022 Mrs. Mclean is a 66-year-old female with a large L1-2 disc herniation. We are going to trial a Medrol Dosepak. She understands that she may get over this conservatively, but otherwise I would offer her a minimally invasive right L1-2 discectomy for relief of her lumbar radicular pain. She will call us if she wishes to proceed with surgical intervention. [email or web address] Not available 11/26/2022 10:20:32 08/02/2023 08/02/2023 1. Left leg tingling +/- discomfort. This was her main complaint. She had similar symptoms in [address] Hopper. This may be radicular. 2. H/o headaches, neck pain. She is bothered by #1. Exam is limited over telehealth. I will arrange for NCS/EMG. [email or web address] Not available 08/18/2023 16:51:09 10/28/2024 10/28/2024 1. Chronic low back pain - this is generally stablke 2. Mild chronic left lower lumbar radiculopathy 3. Neck pain at times; h/o ACDF Mostly she seems stable. She agrees. If back pain worsens/changes or any new symptoms arise, she knows to call. [email or web address] Not available 10/28/2024 18:01:48 Plan of Treatment Reminders Order Date Submit Date Provider Last Modified By Organization Details Last Modified Time Details Appointments None recorded. Lab None recorded. Referral None recorded. Procedures nerve conduction study/EMG, lower extremity (PROC) 2023 024 [id number] Alex Antony MD, [address] [place], [address], 4 07:48:35 Surgeries None recorded. Imaging MRI, lumbar spine, w/o contrast 2022 023 [facility], [address] [place], [address], 3 11:52:37 MRI, cervical spine, w/o contrast 2022 023 [email or web address] 3 [facility], [address] [place], [address], 3 08:09:55 Medication Orders cyclobenzap rine 10 mg tablet 2024 025 [facility], [address] [facility] [address], [id number], 5 12:32:40 Patient TargetsNo targets recorded. Patient InstructionsNo instructions recorded. Reason for Referral None Reported. Results Created Date Observation Date Name Description Value Unit Range Abnormal Flag Note LastModifiedBy Organization Detail LastModifiedTime 10/20/1910/19/2022 MRI, lumba r spine , w/o contr ast [place] [facility] [address] [facility] [place] [address] Blas garcia Name: BRISA garcia : 957 Patijenny garcia Orderi ng Provid er: ALEX ISAACS STEPH EXAM DATE: 2022 EXAM: MR LUMBAR W/O CONTRA ST HISTOR Y: 66-yea r-old female with low back pain radiat ing to the left leg follow ing a fall 3 weeks ago. COMPAR SAYDA: Radiog raph dated 017. FINDIN GS: There is mild levocu rvatur e of the upper lumbar spine and mild dextro curvat ure at L4-L5. There is mild anteri or listhe sis of L5 on S1. No pars defect is identi fied. There is no fractu re. There is mild anteri or margin al osteop hytic spurri ng. No pathol ogic lesion is identi fied in the lumbar spine. The conus medull yue is normal in appear ance at the L1-L2 level. T12-L1 : There is a mild disc bulge. There is no centra l canal stenos is or neural forami nal stenos is. L1-L2: There is a focal disc extrus ion in the right latera l recess extend ing inferi diane. This extrus ion extend s inferi diane approx imatel y 1.5 cm. There is also a small centra l disc protru franklin. There is severe stenos is of the right latera l recess . There is no centra l canal stenos is. There is no neural forami nal stenos is. L2-L3: There is mild endpla te spurri ng and a minima l disc bulge. There is no centra l canal stenos is. There is no neural forami nal stenos is. L3-L4: There is a mild disc bulge and mild endpla te spurri ng. There is no centra l canal stenos is. There is no neural forami nal stenos is. L4-L5: There is a broad- based disc bulge/ protru franklin, mild endpla te spurri ng and mild facet arthro yaya. There is ligame ntum flavum hypert rophy. There is no centra l canal stenos is. There is mild left and minima l right neural forami nal stenos is. L5-S1: There is a broad- based disc protru franklin extend ing into the neural forami na and mild to modera te facet arthro yaya. There is no centra l canal stenos is. There is modera te left and mild right neural forami nal stenos is. The parasp inous muscul ature is symmet mary kate and normal in signal . IMPRES FRANKLIN: 1. There is a large disc extrus ion extend ing inferi diane into the right latera l recess at L1-L2. This result s in severe stenos is of the right latera l recess . 2. There is modera te left and mild right neural forami nal narrow ing at L5-S1, and mild left neural forami nal narrow ing at L4-L5. Interp reted By: Bhavin suárez MD Electr onical ly Signed By: Bhavin suárez MD on 023 11:47 AM [facility] [address] [place], [address], 11/04/2022 13:37:55 08/25/19 24 08/23/2023 nerve condu ction study /EMG, lower extre mity (PROC ) No observ ation record ed. [email or web address] Alex Antony MD [address] [place], [address], 08/25/2023 13:02:25 Result Notes None recorded. Problems Name Problem SNOMED Code Status Onset Date Resolution Date Notes Provider Name and Address Organization Details Recorded Time Paresthes ia 53511650 Active 2015 [address]) [facility] 6 10:52:55 Pain in right lower limb 576764184 Active 2015 From Automated Load;Provi steph: Madie Hopper;Stat us: Active Not Available Formerly [facility] 7 06:51:54 Headache 42843302 Active 2015 From Automated Load;Provi steph: Madie Hopper;Stat us: Active Not Available [facility] 6 09:40:34 Neck pain 12696964 Active 2015 From Automated Load;Provi steph: Madie Hopper;Stat us: Active Not Available [facility] 6 09:40:34 Cervical disc disorder 687855198 Active 2015 From Automated Load;Provi steph: Madie Hopper;Stat us: Active Not Available [facility] 6 09:40:34 Problem Notes None recorded. Procedures Surgical History Date Name Laterality Status Provider Name and Address Organization Details Recorded Time 08/23/19 24 Electromyography (EMG) with Nerve Conduction Study (NCV) completed Monica Taylor (Nicky) [facility] 08/23/2023 14:37:25 12/09/19 22 tooth extraction completed Anna Sparks [facility] 12/14/2021 09:20:42 07/17/20 16 Electromyography (EMG) with Nerve Conduction Study (NCV) completed Monica Taylor (Nicky) [facility] 07/17/2016 09:45:02 06/29/20 14 Neck Surgery completed Shona Reynolds [facility] 08/27/2016 09:06:41 Imaging Results None recorded. Procedure Notes None recorded. Medical Equipment None Reported. Allergies Allergen ID Allergen Name Allergen Category Reaction Reaction Severity Criticality Documentation Date Start Date Code Code System Note Provider Name and Address Organization Details Recorded Time 946460 Robaxin medicatio n Not available Not available Not available 06/14/2016201395 5 RxNorm Comme nt: Creat ed By: Evelyn palacios;Cr eated Date: 014 11:13 :17 AM; Not Available [facility] 6 13:39:43 373955 amoxicill in medicatio n Not available Not available Not available 09/12/2017 723 RxNorm Arlen duran [facility] 8 08:45:10 527376 Product containin g penicilli n (product) medicatio n Not available Not available Not available 12/14/2021 58071 8001 SNOMED Anna Bridger [facility] 09:17:41 Medications Name Sig Start Date Stop [...] as needed by oral route. 2022 active [facility]: 0904-588 0-61 Not Available Not Available Not [...] Not Available No t Available Fluarix Quad (PF) 60 mcg (15 mcg x [...] Available Not Available Vitals Date Recorded Body height Body mass index (BMI) Body weight Provider Name and Address Organization Details Last Updated DateTime 08/02/2023 152.4 cm 16.8 kg/m2 91895.94 g [facility] 08/02/2023 14:56:34 Date Recorded Body weight Oxygen saturation Oxygen saturation in Arterial blood by Pulse oximetry Heart rate Systolic blood pressure Diastolic blood pressure Provider Name and Address Organization Details Last Updated DateTime 3 57871.6 1 g 97 % 97 % 92 /min 122 mm[Hg] 72 mm[Hg] Monica Hutson [facility] 3 14:19:47 Date Recorded Body weight Heart rate Oxygen saturation Oxygen saturation in Arterial blood by Pulse oximetry Systolic blood pressure Diastolic blood pressure Provider Name and Address Organization Details Last Updated DateTime 5 01183.5 g 76 /min 96 % 96 % 122 mm[Hg] 76 mm[Hg] [facility] 5 13:55:40 Date Recorded Body height Body mass index (BMI) Body weight Systolic blood pressure Diastolic blood pressure Provider Name and Address Organization Details Last Updated DateTime 11/26/2022 152.4 cm 17 kg/m2 72055.54 g 126 mm[Hg] 72 mm[Hg] Dianna Del Angel [facility] 3 09:59:39 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 Question Answer Notes LastModified by Solar Not[employer] Details LastModified Time Tobacco Smoking Status Current Every Day [email or web address] 08/27/2016 09:04:27 Live Alone Or With Others? Alone Information not available 03/07/2017 Marital Status Informatio n not available 03/07/2017 What Was The Date Of Your Most Recent Tobacco Screening? 10/01/2022 [email or web address] Information not available 10/01/2022 How Much Tobacco Do You Smoke? 1 PPD Information not available 08/27/2016 Has Tobacco Cessation Counseling Been Provided? No [email or web address] Information not available 12/14/2021 How Many Years Have You Smoked Tobacco? 20 Information not available 08/27/2016 Sex: Unknown Functional Status Question Answer Note LastModified by Solar Not[employer] Details LastModified Time What is your level of alcohol consumption? 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 Family History Relationship Description Onset Age of this Age Resolved Age Notes LastModified by Organization Details LastModified Time Unspecified Relation Malignant neoplastic disease [email or web address] Not available 2016 09:04:09 Unspecified Relation Hypertensive disorder ewiner Not available 2016 09:04:16 Unspecified Relation Myocardial infarction [email or web address] Not available 08/27 09:04:22 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 Condition Response Arthritis Y Migraines Y Osteoporosis/Osteopenia Y Gynecological HistoryNo gynecological history recorded. Obstetrics History GPAL:G 0 P 0 0 0 0 Past Encounters Encounter ID Performer Location Encounter Start Date Encounter Closed Date Diagnosis/Indication Diagnosis SNOMED-CT Code Diagnosis ICD10 Code Diagnosis Note [id number] MADIE HOPPER MD NEUROLOGY [facility] CLOSED [address] [place] [address] 07/17/2016 08:36:36 07/17/2016 10:23:18 Paresthesia 66140566 R20.2 Muscle weakness 23289939 M62.81 Muscle pain 94250601 M79 .1 Skin sensa tion disturbance 44446170 R20.9 [id number] JENNIFER COOPER MD NEUROSURG [facility] [address] [place] [id number] 08/27/2016 08:40:38 08/27/2016 14:00:43 Cervical radiculopathy 36373460 M54.12 [id number] JENNIFER COOPER MD NEUROSURG [facility] [address] [place] [id number] 10/08/2016 10:02:12 10/08/2016 13:45:17 Cervical radiculopathy 86100127 M54.12 15 minutes spent reviewing images, discussing the diagnosis and coordinati ng care. [id number] MADIE HOPPER MD NEUROLOGY [facility] CLOSED [address] [place] [address] 03/07/2017 08:17:12 03/07/2017 09:16:01 Cervicogenic headache 663847881 G44.89 Mrs. 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 She is a candidate for a C6-7 fusion for relief of C7 symptomns, she declined due to problems due to swallowing that occurred with her initial surgeries. At her last visit she was still complainin g of low back pain but today denies LBP rather LLE pain/numbn ess and weakness. We performed an EMG which yielded negative results. She declined PT due to expense. - Counseled on procedure and benefits of BL G/L/T ONB and TPI. -Schedule BL G/L/T ONB and TPIS-Recom mended cupping - she is to check into this through accupuntur ists/needl ing .-Start peppermint oil or DoTerra Past Tense - Counseled on stopping ibuprophen , again warned no more than 10 analgesics per month. -Consider cranial cradle -Continue cyclobenza gloria 10 mg qhs -Continue CoQ10 -Resume magnesium- Trial of Lacross Ball FU 6 month> 35 with greater than 50% time in counseling Muscle pain 91266503 M79 .1 -as above. Paresthesia 12632382 R20 .2 LLE, possibly from cervical cord compressio n; no low back pain, reflexes intact and brisk Pain in le ft lower limb 853933623 M79.605 pain and weakness LLE - as above [id number] MADIE HOPPER MD NEUROLOGY [facility] CLOS[facility] [address] [place] [address] 09/12/2017 08:33:47 09/12/2017 10:33:24 Paresthesia 91067914 R20.2 LLE, most likely from cervical cord compressio n; no low back pain, reflexes intact and brisk, weakness in upper motor neuron pattern Cervicogenic headache 27 0489148 G44.89 Mrs. 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 She is a candidate for a C6-7 fusion for relief of C7 symptoms, she declined due to problems due to swallowing that occurred with her initial surgeries. She is currently stable with symptoms of neck pain, headaches about twice a week than awaken her from sleep. She is no longer overusing ibuprofen but treating with peppermint oil and Biofreeze, Flexeril qhs and stretches and exercises. - Counseled on procedure and benefits of BL G/L/T ONB and TPI.--- SHE DECLINES, afraid of needles- Again recommend she consider cupping - she is to ask Georgina when she checks out.- Continue peppermint oil alternatin g with Biofreeze- Counseled on concerns of ibuprophen ; she is to avoid and limit to no more than 10 analgesics per month-Cont inue cyclobenza gloria 10 mg qhs-Contin ue MtZ09-Ootv me magnesium daily- She is interested in CBD oil. This may be helpful. I've provided literature .- if pain signficant worsens, she is to get back in with Dr. Cooper FU 12 month or sooner PRN Muscle pain 16775168 M79 .1 -as above. 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 Cervical myelopathy 2025 14369 G95.9 she has exam finding and symptoms suggestive of myelopathy - following with Dr. 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 Recent ER visit for BLE giving out, severe pain both legs and L arm. Suspect from cervical stenosis. - scheduled wtih Dr. Cooper Headache 38217012 R51 cervicogen ic -- f/u with Dr. Cooper Cervicogenic headache 27 4986279 G44.89 Mrs. 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 She is a candidate for a C6-7 fusion for relief of C7 symptoms, she declined due to problems due to swallowing that occurred with her initial surgeries. She has been having critical weakness and pain in L>RLEs and pain in LUE, now in PT but for sciatica. I think this is coming from the neck. She has f/u with Dr. Cooper next month. I've recommende d to reconsider her decision not to have surgery for c-spine and explained I think sx of headaches and the lower extrremity weakness and pain are coming from her neck. She is again overusing ibuprofen. I've recommend she resume peppermint oil and Biofreeze, Flexeril qhs, and stretches and exercises. - Again recommend she consider cupping, massage, dry needling.- Consider repeat PT but will be seeing Dr. Cooper 09/22/18- Resume peppermint oil alternatin g with Biofreeze- Counseled on concerns of ibuprophen ; she is to avoid and limit to no more than 10 analgesics per month-Cont inue cyclobenza gloria 10 mg qhs-Resume CoQ10 and magnesium oxide 400 mg qhs- Recommende d she discuss SL CBD oil with [facility] FU 12 month or sooner PRN Muscle pain 45314063 M79 .12 -as above. Paresthesia 63140793 R20 .2 LLE, most likely from cervical cord compressio n; no low back pain, reflexes intact and brisk, weakness in upper motor neuron pattern Pain in le ft lower limb 625069169 M79.605 pain and weakness LLE - as above LUE/LLE paresthesi as, pain LLE Cervical myelopathy 2025 97192 G95.9 she has exam finding and symptoms suggestive of myelopathy - following with Dr. Cooper on as needed basis 40 min appt with greater than 50% in counseling regarding probalbe cervical source of pain, weakness, importance of surgery if determined by Dr. Cooper Tobacco user 873650053 Z 72.0 She is still smoking 1PPD. Counseled that smoking contribute s to cervical spondylosi s, among so many other health risks including increased risk for heart attack, stroke and cancer. 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 Cervicogenic headache 27 4195374 G44.89 Mrs. 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 She is a candidate for a C6-7 fusion for relief of C7 symptoms, she declined due to problems due to swallowing that occurred with her initial surgeries. I've recommende d to reconsider her decision not to have surgery for c-spine and explained I think sx of headaches and the lower extremity weakness and pain are coming from her neck. She is doing better with avoiding excessive analgesics , previously overusing ibuprofen. I've again recommende d she use peppermint oil and Biofreeze, Flexeril qhs, and stretches and exercises. I showed her the products on [employer]. She is also now using CBD oil and it is helping. - Continue peppermint oil alternatin g with Biofreeze- Again counseled on concerns of ibuprofen, commended for cutting back; she is to avoid and limit to no more than 10 analgesics per month-Cont inue cyclobenza gloria 10 mg qhs-Contin ue CoQ10 and resume magnesium qhs- Continue CBD oil with [facility] FU 12 month or sooner PRN Muscle pain 44296934 M79 .12 -as above. consider trigger point injections Cervical myelopathy 2025 77904 G95.9 she has exam finding and symptoms suggestive of myelopathy - following with Dr. Cooper on as needed basis 30 min appt with greater than 50% in counseling regarding probable cervical source of pain, weakness Tobacco user 439817602 Z 72.0 She is still smoking 1PPD. Counseled that smoking contribute s to cervical spondylosi s, among so many other health risks including increased risk for heart attack, stroke and cancer. 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 - juan richard -- as above for headaches - stop smoking - continue vitamins, vit D, Ca and start a MVI Cervicogenic headache 27 0457125 G44.89 Mrs. 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 She is a candidate for a C6-7 fusion for relief of C7 symptoms, she declined due to problems due to swallowing that occurred with her initial surgeries. Insurance denying further MRIs I've again recommende d to reconsider her decision not to have surgery for c-spine and explained I think sx of headaches and the lower extremity weakness and pain are coming from her neck. She is doing better with avoiding excessive analgesics , previously overusing ibuprofen and again now with increase in use during weather changes which are likely triggering the headaches. I've again recommende d she use peppermint oil and Biofreeze, Flexeril qhs, and stretches and exercises. She is also now using CBD oil, but no longer helping as much. - Continue peppermint oil alternatin g with Biofreeze, CBD oil and try a lidocaine 4% gel - Again counseled on concerns of ibuprofen, commended for cutting back; she is to avoid and limit to no more than 10 analgesics per month -Continue cyclobenza gloria 10 mg qhs -Continue CoQ10 400 mg qam and resume reacted magnesium qhs - chin jose manuel/stre tches as demonstrat ed in clinic today - will give a trial of Zofran at onset of headaches; use in conjunctio n with peppermint oil - trial a warm compresses and alternate with cold compresses FU 12 month or sooner PRN 11:12 - 11:14 2 min prep/revie w louisa/st tommy 11:15 - 11:46 face-to-fa ce Total 33 min evaluation : 12 min documentat ion 7 min counseling 12 min 2 min Rx Muscle pain 61392742 M79 .12 -as above. consider trigger point injections Cervical myelopathy 2025 89048 G95.9 she has exam finding and symptoms suggestive of myelopathy - following with Dr. Cooper on as needed basis Tobacco user [id number] Z 72.0 She is still smoking 1PPD. Again counseled that smoking contribute s to cervical spondylosi s, among so many other health risks including increased risk for heart attack, stroke and cancer. [id number] ALEX ANTONY MD NEUROLOGY [facility] [address] [place] [address] 1 12/14/2021 08:18:29 12/14/2021 11:06:39 Migraine 15206161 G43.909 Neck pain 49119128 M54.2 [id number] ALEX ANTONY MD NEUROLOGY [facility] [address] [place] [address] 1 10/01/2022 14:03:41 10/01/2022 14:53:27 Spinal stenosis in cervical region 69642082 M48.02 Spinal cord disease 4852 2002 G95.9 Lumbar radiculopathy 128 029388 M54.16 [id number] [facility] [id number] 11/26/2022 09:39:10 11/27/2022 04:45:38 Lumbar radiculopathy 096979128 M54.16 [id number] ALEX ANTONY MD NEUROLOGY [facility] [address] [place] [address] 08/02/2023 14:54:56 08/19/2023 04:24:09 Pain in left lower limb 241737301 M79.605 [id number] ALEX ANTONY MD NEUROLOGY [facility] [address] [place] [address] 1 08/23/2023 12:43:25 08/24/2023 04:25:39 Lumbar radiculopathy 916481755 M54.16 Paresthesi a of lower extremity [id number] R20.2 [id number] ALEX ANTONY MD NEUROLOGY SB [address] [place] [address] 10/28/2024 13:27:09 10/29/2024 04:12:25 Neck pain [id number] M54.2 Lumbar radiculopathy 128 [id number] M54.16 Health Concerns Section Related Observation LastModified by Organization Detai ls LastModified Time None Recorded Concern Status LastModified by Organization Details LastModified Time None Recorded Advance Directives Directive None Recorded Payers Insurance Date Sequence Insurance Name Policy Number Policy Evangelista Covered Member ID Evangelista Member ID Guarantor Name 06/15/2020 1 [place] [id number] Brisa R Vinay [id number] Brisa R Vinay 10/25/2024 1 [place]MEDICARE [place]PLACEMENT REGIONAL PPO[place] [id number] Brisa R Vinay [id number] Brisa R Vinay 12/14/2021 1 [place] [id number] Brisa R Vinay [id number] Brisa R Vinay Notes Date Note Type Note Provider Name and Address Organization Details Recorded Time 10/01/2022 text/html She was seen in November with headache, neck pain, previously followed by Dr. Hopper. She complains of tingling and pain today past three mos. *She has low back pain. She has tingling in the left leg, thigh, shirley, foot. No pain in the leg. This is not brand-new - mentioned in a note from Dr. Hopper in 2017, or something similar was - but she feels it has gotten worse. *She has neck pain still, chronic. She has tingling into the left arm and hand. Trunk, face not tingly. She had cervical surgery by Dr. Cooper in 2013. She had cervical MRI in 2016: . 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 There is mild central canal stenosis at C3-C4, C4-C5, and C6-C7.3. There is moderate/severe bilateral neural foraminal stenosis atC3-C4 and C6-C7, and moderate right and mild left neural foraminalnarrowing at C4-C5 and C7-T1. There is moderate right and severe leftneural foraminal stenosis at T1-2. scans of neck and low back ordered by NSGY in 2019 but not done. ALEX ANTONY MD [facility] [place], [address], [facility] 10/01/2022 18:40:30 11/26/2022 text/html Mrs. Mclean is a 66-year-old female presenting with low back, right hip and leg pain. She has a history of a cervical fusion by myself in 2049. Her back and leg pain started on October 05, 2022 after she fell. The pain is 7 out of 10, described as burning, aching and spasms. The pain is intermittent and getting better. The pain is better with sitting in recliner. The pain is worse with lying down. She describes numbness and weakness in her right leg. No loss of balance. No loss of bowel or bladder control. She has been taking anti-inflammatories as needed, and Percocet the last month. She has been on Flexeril as needed in the last 10 years. She presents today with an MRI of the lumbar spine performed at [facility] on October 19, 2022. JENNIFER COOPER MD [address] [place], [address], [facility] 11/26/2022 10:21:03 08/02/2023 text/html Visit today is b eing conducted via telehealth using both audio/video. The patient confirms that he/she is physically located in [place] at the time of this visit. Patient expressed understanding of audio/video telehealth as a billable visit and has consented. Patient also expressed understanding that not every condition can be appropriately addressed via telehealth and that this telehealth visit may need to be converted to an in-person visit or may even result in a recommendation to go to the E.R. at the provider s discretion in order to provide the best possible care. She was seen in September. Her back is better. She is having tingling in the left leg, into the feet. mostly foot When she lies down, sometimes her legs tingle. When she moves her head to her chest, she can get spasms in the chest and neck. She has had that for years. Improved some after her neck surgery. She has headaches at times still. Lumbar MRI last year showedThere is a large disc extrusion extending inferiorly into the rightlateral recess at L1-L2. This results in severe stenosis of the rightlateral recess.2. There is moderate left and mild right neural foraminal narrowing atL5-S1, and mild left neural foraminal narrowing at L4-L5. She was seen by Dr. Cooper and surgery vs conservative treatment discussed and the latter pursued. ALEX ANTONY MD [address] [place] [address] [place], [address], [facility] 08/18/2023 16:51:26 10/28/2024 text/html She was seen a year ago with tingling of the left leg distally in bed at nite.EMG showed mild abnormality suggestive of chronic lower [...] has no bone densitywas on reclast. ALEX ANTONY MD [address] [place], [address], [facility] 10/28/2024 18:01:59 OBGyn Episode No OBEpisode recorded.
--- OUTSIDE RECORDS SUMMARY | 2024-12-18 11:49 | XMS_ITS | Continuity of Care Document ---
Author Organization [facility], NEUROLOGY SB Address [address] [place] [address] Care Team Providers Care First Aid Instructor Name Role Phone VINITA HARDIN Referring Provider ULYSSES LAWSON Primary Care Provider Assessment Encounter Date Assessment Date Assessment LastModified by Organization Details LastModified Time 10/28/2024 10/28/2024 1. Chronic low back pain - this is generally stablke 2. Mild chronic left lower lumbar radiculopathy 3. Neck pain at times; h/o ACDF Mostly she seems stable. She agrees. If back pain worsens/changes or any new symptoms arise, she knows to call. [email or web address] Not available 10/28/2024 18:01:48 Plan of Treatment Reminders Order Date Submit Date Provider Last Modified By Organization Details Last Modified Time Details Appointments None recorded. Lab None recorded. Referral None recorded. Procedures None recorded. Surgeries None recorded. Imaging None recorded. Medication Orders cyclobenzap rine 10 mg tablet 2024 025 [facility], [facility] [address], [place], [id number], 12:32:40 Patient TargetsNo targets recorded. Patient InstructionsNo instructions recorded. Reason for Referral None Reported. Problems Name Problem SNOMED Code Status Onset Date Resolution Date Notes Provider Name and Address Organization Details Recorded Time Parmaldonado abdalla [id number] Active 2015 Monica Taylor (Nicky) [facility] 12/27/201 6 10:52:55 Pain in right lower limb 819839061 Active 2015 From Automated Load;Provi steph: Madie Hopper;Stat us: Active Not Available [facility] 7 06:51:54 Headache 03486943 Active 2015 From Automated Load;Provi steph: Madie Hopper;Stat us: Active Not Available [facility] 6 09:40:34 Neck pain 45974214 Active 2015 From Automated Load;Provi steph: Madie Hopper;Stat us: Active Not Available [facility] 6 09:40:34 Cervical disc disorder 494783900 Active 2015 From Automated Load;Provi steph: Madie Hopper;Stat us: Active Not Available [facility] 6 09:40:34 Problem Notes None recorded. Procedures Surgical History Date Name Laterality Status Provider Name and Address Organization Details Recorded Time 08/23/19 24 Electromyography (EMG) with Nerve Conduction Study (NCV) completed Monica Taylor (Nicky) [facility] 08/23/2023 14:37:25 12/09/19 22 tooth extraction completed Anna Sparks [facility] 12/14/2021 09:20:42 07/17/20 16 Electromyography (EMG) with Nerve Conduction Study (NCV) completed Monica Taylor (Nicky) [facility] 07/17/2016 09:45:02 06/29/20 14 Neck Surgery completed Shona Reynolds [facility] 08/27/2016 09:06:41 Imaging Results None recorded. Procedure Notes None recorded. Medical Equipment None Reported. Allergies Allergen ID Allergen Name Allergen Category Reaction Reaction Severity Criticality Documentation Date Start Date Code Code System Note Provider Name and Address Organization Details Recorded Time 685935 Robaxin medicatio n Not available Not available Not available 06/14/2016201395 5 RxNorm Comme nt: Creat ed By: Evelyn Mccoy eated Date: 014 11:13 :17 AM; Not Available [facility] 6 13:39:43 427288 amoxicill in medicatio n Not available Not available Not available 09/12/2017 723 RxNorm Arlen duran [facility] 8 08:45:10 915062 Product containin g penicilli n (product) medicatio n Not available Not available Not available 12/14/2021 96296 8001 SNSANTA Sparks [facility] 2 09:17:41 Medications Name Sig Start Date [...] needed by oral route. 2022 active [facility]: 0904-588 0-61 Not Available Not Available Not [...] Not Available No t Available Fluarix Quad 2924-8780 (PF) 60 mcg (15 mcg x 4)/0.5 [...] Address Organization Details Last Updated DateTime 5 61788.5 g 76 /min 96 % 96 % 122 mm[Hg] 76 mm[Hg] Lisa Manning [facility] 5 13:55:40 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 Question Answer Notes LastModified by Organizat ion Details LastModified Time Tobacco Smoking Status Current Every Day [email or web address]/27[facility]2016 09:04:27 Live Alone Or With Others? Alone Information not available 03/07/2017 Marital Status Informatio n not available 03/07/2017 What Was The Date Of Your Most Recent Tobacco Screening? 10/01/2022 [email or web address] Information not available 10/01/2022 How Much Tobacco Do You Smoke? 1 PPD Information not available 08/27/2016 Has Tobacco Cessation Counseling Been Provided? No [email or web address] Information not available 12/14/2021 How Many Years Have You Smoked Tobacco? 20 Information not available 08/27/2016 Sex: Unknown Functional Status Question Answer Note LastModified by Organizat ion Details LastModified Time What is your level of alcohol consumption? None [email or web address] Information not available 12/14/2021 What is your [...] SNOMED-CT Code Diagnosis ICD10 Code Diagnosis Note [id number] ALEX ROLLE MD NEUROLOGY [address] [place] [address] 10/28/2024 13:27:09 10/29/2024 04:12:25 Neck pain 00347675 M54.2 Lumbar radiculopathy 128 442035 M54.16 Health Concerns Section Related Observation LastModified by Organization Detai ls LastModified Time None Recorded Concern Status LastModified by Organization Details LastModified Time None Recorded Payers Encounter Date Sequence Insurance Name Policy Number Policy Evangelista Covered Member ID Evangelista Member ID Guarantor Name 10/28/2024 1 [place] OF [facility] [place] ACC[place] (MEDICARE REPLACEMENT REGIONAL PPO) [id number] Brisa Mclean [id number] Brisa Mclean Notes Date Note Type Note Provider Name and Address Organization Details Recorded Time 10/28/2024 text/html She was [facility] a year [facility] mild abnormality suggestive of chronic [...] bone densitywas on reclast. ALEX ROLLE MD [address] [place] [address], [address], [facility] 10/28/2024 18:01:59 OBGyn Episode No OBEpisode recorded.
[2024-12-18 11:59] VITALS: BMI 17.4
--- NOTE | 2024-12-18 12:19 | PC.NURSE ---
1215: Spoke with Nicole Lake due to pt's blood pressures being too low to administer CTA protocol. Upon arrival the BP was 104/62 HR 86. After waiting 15min for a recheck BP 87/64 HR 82. New order to cancel CTA for today and reschedule and to instruct the pt to not take her lisinopril before arrival for next time. Message relayed to pt. D/c'd home.
[2024-12-23 11:56] VITALS: BMI 16.8
[2024-12-23] MEDS: METOPROLOL TARTRATE 50MG TABLET PO (12:07)
[2024-12-23] MEDS: IVABRADINE HCL 7.5MG TABLET PO (12:07)
[2024-12-23 12:14] VITALS: BP 131/76; PULSE 85; RESP 16; O2SAT 96
[2024-12-23 12:41] VITALS: BP 128/79; PULSE 61; RESP 16; O2SAT 94
[2024-12-23] MEDS: NITROGLYCERIN 0.4MG SL TABLET SL (12:41)
[2024-12-23 12:44] VITALS: BP 119/83; PULSE 61; RESP 16; O2SAT 97
[2024-12-23 12:47] VITALS: BP 103/58; PULSE 60; RESP 16; O2SAT 97
[2024-12-23 12:50] VITALS: BP 103/62; PULSE 58; RESP 16; O2SAT 94
--- NOTE | 2024-12-23 13:00 | CT_ITS ---
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 A noncontrast coronary calcium scan was performed. A CT attenuation threshold of 130 Hounsfield units (HU) was used for the detection of calcium in contiguous voxels of 1 sq mm in area to be counted as individual lesions. Bolus tracking in the ascending aorta with a threshold of 180 HU was performed. Immediately afterwards, ECG synchronized cardiac CT was then performed from the cardiac base to apex using retrospective gating with ECG tube current modulation. A total of 85 mL of Isovue 370 mg/mL contrast medium was administered at 5 mL/sec followed by a saline flush using a biphasic injection protocol. A tube voltage of 120 KVp was used. The patient received the following medications prior to the cardiac CT. 75 mg of oral metoprolol 15 mg of oral ivabradine 0.4 mg of sublingual nitroglycerin The average heart rate at the time of acquisition was 51 bpm and regular. Image Reconstruction Transaxial images were reconstructed at 0.67 mm slide thickness. Data was reviewed interactively on an advanced workstation capable of 2 and 3-dimensional displays in all conventional reconstruction formats, including multiplanar reformations, maximum intensity projections, curved multiplanar reformations, and volume rendered reconstructions. When applicable, selected routine images describing the relevant coronary anatomy and pathology were saved and sent to PACS. Complications None Technical Quality Overall image quality was good. Coronary artery opacification was adequate. Total DLP (Dose-Length Product) is 1183.0 mGy-cm. The reported value represents the total of one or more individual components during the CT acquisition of this date and at this time, and as such, the same value may appear in more than one CT report depending on the interpreting/reporting physicians. COMPARISON None FINDINGS CT Coronary Calcium Scoring LMA (Left Main Artery) = 5 LAD (Left Anterior Descending) = 65 LCX (Left Coronary Circumflex) = 5 RCA (Right Coronary Artery) = 0 Total Calcium Score = 75 using the AJ-130 method. The observed calcium score of 75 is at 43rd percentile for subjects of the same age, sex, and race/ethnicity. The interpretation of the calcium heart score is based on the following continuum*: 0 = no calcified plaque detected (risk of coronary artery disease is very low ??? less than 5%) 1-10 = calcium detected in extremely minimal levels (risk of coronary diseases is still low ??? less than 10%) 11-100 = mild levels of plaque detected with certainty (mild or minimal narrowing of heart arteries is likely) 101-400 = definite,at least moderate levels of plaque detected (relatively high risk of a heart attack within 3-5 years) >401-999 = extensive levels of plaque detected (high risk of heart attack, high levels of vascular disease are present, high likelihood of at least one significant coronary narrowing) *The calcium heart score quantifies the burden of coronary calcification/plaque in the coronary arteries. The calcium heart score is not able to evaluate the presence or burden of non-calcified (i.e. soft) plaque. There is mild calcification in the ascending and descending thoracic aorta. Coronary CT Angiography The coronary arterial system is left dominant. Quantitative Stenosis Grading: Left Main (LM): The left main originates normally from the left sinus of Valsalva. The LM bifurcates into the left anterior descending artery and left circumflex artery. There is calcified plaque in the LM, with no evidence of luminal stenosis. Left Anterior Descending (LAD) and Diagonal Branches: The LAD gives off 3 diagonal branch(es). There is mixed calcified/noncalcified plaque in the proximal and mid LAD segment with up to 50 to 70% luminal stenosis in the midsegment. There is no evidence of LAD-myocardial bridge Left Circumflex (LCX) and Obtuse Marginals (OM): The LCX gives off 2 Obtuse Marginal (OM) branch(es). There is mixed calcified/noncalcified plaque in the proximal and mid LCx, with up to 25-49% luminal stenosis. Right Coronary Artery (RCA): The RCA originates normally from the right sinus of Valsalva. The RCA gives off a posterior descending artery (PDA) and posterolateral (PL) branches. There is noncalcified plaque in the proximal and mid RCA segments with up to 25-49% luminal stenosis. Non-Coronary Cardiac Findings: Analysis of the left ventricular (LV) structure and function was performed after 3-D reconstruction of the LV from axial images, with user-corrected automatic contouring for assessment of LV volumes and user-defined reconstruction from oblique planes for measurement of 3-D cardiac structure and function. -The left ventricle systolic function is normal. -There is no left atrial appendage filling defect. Two right pulmonary veins and two left pulmonary veins drain normally into the left atrium. -No pericardial thickening or calcification. -Central and branch pulmonary arteries in the [id number] are unremarkable. -Thoracic aorta within the visualized thoracic aortic-branches in the [id number] is unremarkable. Extracardiac Structures No significant extra-cardiac findings. Note, however, that this study is focused on the cardiac findings. IMPRESSION - Presence of coronary calcification with an Agatston score = 75 using the AJ-130 method. -The observed calcium score of 75 is at 43rd percentile for subjects of the same age, sex, and race/ethnicity. - Moderate atherosclerotic coronary disease in the mid LAD segment, with possible evidence of significant flow-limiting atherosclerosis. Mild, nonobstructive coronary disease in the RCA and LCx segments. -CAD-RADS 3. Management recommendations per ACC/AHA guidelines*, as clinically appropriate. *Recommendations: CAD RADS 0: Reassurance. Consider non-atherosclerotic causes of chest pain. CAD RADS 1: Consider non-atherosclerotic causes of chest pain. Consider preventive therapy and risk factor modification. CAD RADS 2: Consider non-atherosclerotic causes of chest pain. Consider preventive therapy and risk factor modification, particularly for patients with nonobstructive plaque in multiple segments. CAD RADS 3: Consider further functional testing. Consider symptom-guided anti-ischemic and preventive pharmacotherapy as well as risk factor modification per published guideline statements. CAD RADS 4A: Consider further functional testing or invasive coronary angiography with revascularization per published guideline statements. Consider symptom-guided anti-ischemic and preventive pharmacotherapy as well as risk factor modification per published guideline statements. CAD RADS 4B: Invasive coronary angiography recommended with revascularization per published guideline statements. Consider symptom-guided anti-ischemic and preventive pharmacotherapy as well as risk factor modification per published guideline statements. CAD RADS 5: Consider invasive angiography and/or viability assessment with revascularization per published guideline statements. Consider symptom-guided anti-ischemic and preventive pharmacotherapy as well as risk factor modification per published guideline statements. CRITICAL RESULT None COMMUNICATION Per this written report The coronary and cardiac findings of this CCTA were reviewed, reported, and signed by Sanjay Cid MD (Board Certified Family Physician) Conclusion Electronically signed by : Emilia Cid MD 12/23/2024 15:24:48
[2024-12-23] MEDS: IOPAMIDOL-370 (76%);100ML BOTTLE 85 ML IV (13:05)
[2024-12-23] MEDS: SODIUM CHLORIDE 0.9% 10ML SYR (RAD ONLY) 10 ML IV (13:05)
[2024-12-23] MEDS: 0.9 % SODIUM CHLORIDE 50 ML VIAL IV (13:05)
--- NOTE | 2024-12-23 14:30 | CA_ITS ---
APPROVED REPORT EXAM: Comprehensive 2D, Doppler, and color-flow Echocardiogram Attending Pathologist: Precious Manriquez RVT Ht: 5 ft 2 in Wt: 92lbs BSA: 1.37 BP: 126/69 mmHg Indications: CHEST PAIN 2D Dimensions LA Volume 12.80 mL LA Volume Index 9.28 mL/m2 (M/F) 16-34 M-Mode Dimensions RVDd 1.81 cm (0.9-2.6) LA Diam 2.51 cm (1.9-4.0) LVDd 3.77 cm (3.5-5.7) LVDs 2.62 cm (3.5-5.7) IVSd 0.50 cm (0.6-1.1) PWd 0.34 cm (0.6-1.1) EF (Teich) 58.70% FS 30.50% EDV (Teich) 60.80 mL TAPSE 1.91 (<1.7) ESV (Teich) 25.10 mL LV Diastology E Decel Time 223 (160-240 msec) E/A Ratio 1.0 Aortic Valve BRENDA Index 1.80 cm2/m2 AoV Peak Noe. 90.0 (50-130 cm/s) AO Peak GR. 3.30 mmHg AO Mean GR. 1.90 (<5 mmHg) AO VTI 21.3 (18-25 cm) BRENDA (VTI) 2.54 (2.5-4.5 cm2) Mitral Valve MV E Max Noe. 114.0 (40-130 cm/s) MV A Velocity 109.0 (40-130 cm/s) E/A Ratio 1.05 MV PHT 65.0 ms Pulmonary Valve PV Peak Velocity 51.0 (50-150 cm/s) Left Ventricle The left ventricle is normal size. The left ventricular systolic function is normal. The left ventricular ejection fraction is within the normal range. There is normal left ventricular wall thickness. There is normal LV segmental wall motion. The left ventricular diastolic function is normal. LVEF is 55%. Right Ventricle The right ventricle is mildly dilated. The right ventricular systolic function is normal. Atria The left atrium size is normal. The right atrium size is normal. There is no Doppler evidence of interatrial shunt. Aortic Valve The aortic valve is mildly thickened. There is no aortic valvular stenosis. Trace aortic regurgitation. Mitral Valve The mitral valve is normal in structure. No evidence of mitral valve stenosis. Trace mitral regurgitation. Tricuspid Valve Tricuspid valve is grossly normal in structure and function. Trace tricuspid regurgitation. There is insufficient TR jet to estimate RVSP. Pulmonic Valve The pulmonary valve is normal in structure. Trace pulmonic regurgitation. Great Vessels The aortic root is normal in size. IVC is normal in size and collapses >50% with inspiration. Pericardium There is no pericardial effusion. Other Information Study Quality: Fair Conclusion Normal biventricular systolic function. Mild RV dilation. No significant valvular stenosis or regurgitation. Electronically signed by : Emilia Cid MD 12/31/2024 00:05:35
== END 2024-12-23 23:59 | disposition home or self-care (01) ==
LOC: RAD 11:43
PROVIDERS: PCP Family Medicine; Visit Provider Nurse Practitioner Family
DX: I25.10 Atherosclerotic heart disease of native coronary artery without angina pectoris (principal); I51.7 Cardiomegaly
CPT/HCPCS: 75574; 93306; Q9967

== ENCOUNTER 2024-12-24 09:24 | Emergency (ER) | payer MEDICARE, SELFPAY ==
[2024-12-24 09:27] VITALS: BP 140/83; PULSE 74; RESP 20; TEMP 36.9; O2SAT 98; BMI 18.6
--- NOTE | 2024-12-24 09:35 | CT_ITS ---
FINAL REPORT TECHNIQUE: Thin section axial CT images with coronal and sagittal reformats were performed after the administration of IV contrast. This study was performed with techniques to keep radiation doses as low as reasonably achievable (ALARA). Individualized dose reduction techniques using automated exposure control or adjustment of mA and/or kV according to the patient''s size were employed. CLINICAL HISTORY: subungual swelling, L ear pain FINDINGS: The nasopharynx, oropharynx, epiglottis, and larynx are unremarkable. The thyroid is homogeneous. There is enlargement of the bilateral submandibular salivary glands. Edema surrounds both submandibular salivary glands consistent with sialoadenitis. The parotid glands are unremarkable. There is mild enlargement of the bilateral submandibular lymph nodes, likely reactive. No fluid collection is identified. Limited images of the lung apices demonstrate emphysema and biapical scarring. There is no acute osseous abnormality. IMPRESSION: Bilateral submandibular sialoadenitis. Reviewed, Interpreted and Dictated by Rika Villagomez MD Transcribed by Kasia Parsons Authenticated and . [facility]
[2024-12-24 09:47] VITALS: BP 156/84; PULSE 69; RESP 21; O2SAT 100
[2024-12-24 09:50] LABS: Basophils % 0.3 % (0.1-2.0); Eosinophils # 0.2 Kmm3 (0.0-0.4); Eosinophils % 1.6 % (0.1-12.0); Hematocrit 39.8 % (37.0-47.0); Hemoglobin 12.8 g/dL (12.2-16.2); Immature Granulocytes # 0.07 10^3uL; Immature Granulocytes % 0.6 %; Lymphocytes # 1.7 K/mm3 (0.7-4.5); Lymphocytes % 14.4 % (10-50); Mean Corpuscular HGB Conc 32.2 g/dL (31.8-35.4); Mean Corpuscular Hemoglobin 29.8 pg (27.0-31.2); Mean Corpuscular Volume 92.6 fl (81-99); Mean Platelet Volume 8.8 fl (7.4-10.4); Monocytes # 0.9 K/mm3 (0.1-1.0); Monocytes % 7.5 % (1.7-9.3); Neutrophils # 8.8 K/mm3 (1.8-7.8); Neutrophils % 75.6 % (37.0-80.0); Nucleated Red Blood Cells # 0 10^3/uL; Nucleated Red Blood Cells % 0 %; Platelet Count 328 K/mm3 (142-424); Red Cell Distribution Width-SD 47.8 fL; White Blood Count 11.7 K/mm3 (4.8-10.8)
[2024-12-24] MEDS: LACTATED RINGERS 1000ML 1,000 ML 999 ML IV (09:50)
[2024-12-24] MEDS: METHYLPREDNISOLONE SOD SUCC 125MG VIAL 125 MG IV (09:51)
[2024-12-24] MEDS: FAMOTIDINE 20MG/2ML VIAL 20 MG IV (09:54)
[2024-12-24] MEDS: EPINEPHrine 1 MG/ML AMPUL 0.3 MG IM (09:56)
[2024-12-24 09:58] LABS: Chloride 109 mmol/L (98-107); Sodium 143 mmol/L (136-145)
[2024-12-24 09:59] LABS: Potassium 3.7 mmoL/L (3.5-5.1)
[2024-12-24] MEDS: diphenhydrAMINE 50MG/ML VIAL 50 MG IV (09:59)
[2024-12-24 10:00] VITALS: BP 167/98; PULSE 78; RESP 19; O2SAT 100
[2024-12-24 10:01] LABS: Alanine Aminotransferase 38 U/L (12-78); Albumin/Globulin Ratio 1.3 (1.1-1.8); Alkaline Phosphatase 72 U/L (38-126); Anion Gap 10.7 mEq/L (5-15); Aspartate Amino Transferase 41 U/L (14-36); Bilirubin,Total 0.2 mg/dl (0.2-1.3); Blood Urea Nitrogen 13 mg/dl (7-17); Carbon Dioxide 27 mmol/L (22.0-30.0); Creatinine Clearance Estimated 35 mL/min (50-200); Estimated Glomerular Filt Rate 62 ml/min (>60); GFR (African American) 75 ML/MIN (>60); Globulin 3.2 g/dL (1.3-3.2); Total Protein,Serum 7.2 g/dl (6.3-8.2)
[2024-12-24 10:02] LABS: Calcium 9.2 mg/dl (8.4-10.2); Glucose 109 mg/dl (74-100)
--- NOTE | 2024-12-24 10:11 | PC.NURSE ---
Pt going for CT at this time
--- OUTSIDE RECORDS SUMMARY | 2024-12-24 10:18 | XMS_ITS | Data Portability ---
Author Organization [facility] KAY Unger BOAZ CLOSED Address [address] [place] [address] Care Team Providers Care Trash Collector Name Role Phone VINITA HARDIN Referring Provider [...] reflexes. Will include lumbar MRI as well. [email or web address] Not available 10/01/2022 18:40:11 11/26/2022 11/26/2022 Mrs. [...] over telehealth. I will arrange for NCS/EMG. [email or web address] Not available 08/18/2023 16:51:09 10/28/2024 10/28/2024 1. Chronic low back pain - this is generally stablke 2. Mild chronic left lower lumbar radiculopathy 3. Neck pain at times; h/o ACDF Mostly she seems stable. She agrees. If back pain worsens/changes or any new symptoms arise, she knows to call. [email or web address] Not available 10/28/2024 18:01:48 Plan of Treatment Reminders Order Date Submit Date Provider Last Modified By Organization Details Last Modified Time Details Appointments None recorded. Lab None recorded. Referral None recorded. Procedures nerve conduction study/EMG, lower extremity (PROC) 2023 024 [id number] Alex Antony MD, [address] [place], [address], 4 07:48:35 Surgeries None recorded. Imaging MRI, lumbar spine, w/o contrast 2022 023 [facility], [address] [place], [address], 3 11:52:37 MRI, cervical spine, w/o contrast 2022 023 [email or web address] 3 [facility], [address] [place], [address], 3 08:09:55 Medication Orders cyclobenzap rine 10 mg tablet 2024 025 [facility], [address] [facility] [address], [phone], 5 12:32:40 Patient TargetsNo targets recorded. Patient InstructionsNo instructions recorded. Reason for Referral None Reported. Results Created Date Observation Date Name Description Value Unit Range Abnormal Flag Note LastModifiedBy Organization Detail LastModifiedTime 10/20/1910/19/2022 MRI, lumba r spine , w/o contr ast [facility] [facility] [address] [place] [address] Blas garcia Name: BRISA garcia : 957 [...] Bhavin suárez MD on 023 11:47 AM [facility] [address] [place], [address], 11/04/2022 13:37:55 08/25/19 24 08/23/2023 nerve condu ction study /EMG, lower extre mity (PROC ) No observ ation record ed. [email or web address] Alex Antony MD [address] [place], [address], 08/25/2023 13:02:25 Result Notes None recorded. Problems Name Problem SNOMED Code Status Onset Date Resolution Date Notes Provider Name and Address Organization Details Recorded Time Paresthes ia 95834567 Active 2015 Monica Arrington) [facility] 6 10:52:55 Pain in right lower limb 941687757 Active 2015 From Automated Load;Provi steph: Madie Hopper;Stat us: Active Not Available [facility] 7 06:51:54 Headache 18075446 Active 2015 From Automated Load;Provi steph: Madie Hopper;Stat us: Active Not Available [facility] 6 09:40:34 Neck pain 57897038 Active 2015 From Automated Load;Provi steph: Madie Hopper;Stat us: Active Not Available [facility] 6 09:40:34 Cervical disc disorder 127246488 Active 2015 From Automated Load;Provi steph: Madie Hopper;Stat us: Active Not Available [facility] 6 09:40:34 Problem Notes None recorded. Procedures Surgical History Date Name Laterality Status Provider Name and Address Organization Details Recorded Time 08/23/19 24 Electromyography (EMG) with Nerve Conduction Study (NCV) completed Monica Taylor (Nicky) [facility] 08/23/2023 14:37:25 12/09/19 22 tooth extraction completed Anna Sparks [facility] 12/14/2021 09:20:42 07/17/20 16 Electromyography (EMG) with Nerve Conduction Study (NCV) completed Monica Taylor (Nicky) [facility] 07/17/2016 09:45:02 06/29/20 14 Neck Surgery completed Shona Reynolds [facility] 08/27/2016 09:06:41 Imaging Results None recorded. Procedure Notes None recorded. Medical Equipment None Reported. Allergies Allergen ID Allergen Name Allergen Category Reaction Reaction Severity Criticality Documentation Date Start Date Code Code System Note Provider Name and Address Organization Details Recorded Time 956848 Robaxin medicatio n Not available Not available Not available 06/14/2016201395 5 RxNorm Comme nt: Creat ed By: Evelyn palacios;Cr eated Date: 014 11:13 :17 AM; Not Available [facility] 6 13:39:43 263078 amoxicill in medicatio n Not available Not available Not available 09/12/2017 723 RxNorm Arlen duran [facility] 8 08:45:10 716801 Product containin g penicilli n (product) medicatio n Not available Not available Not available 12/14/2021 00901 8001 SNOMED Anna Bridger [facility] 09:17:41 Medications Name Sig Start Date [...] as needed by oral route. 2022 active [facility]: 0904-588 0-61 Not Available Not Available Not [...] Updated DateTime 08/02/2023 152.4 cm 16.8 kg/m2 29557.94 g [facility] 08/02/2023 14:56:34 Date Recorded Body weight Oxygen saturation Oxygen saturation in Arterial blood by Pulse oximetry Heart rate Systolic blood pressure Diastolic blood pressure Provider Name and Address Organization Details Last Updated DateTime 3 73740.6 1 g 97 % 97 % 92 /min 122 mm[Hg] 72 mm[Hg] Monica Hutson [facility] 3 14:19:47 Date Recorded Body weight Heart rate Oxygen saturation Oxygen saturation in Arterial blood by Pulse oximetry Systolic blood pressure Diastolic blood pressure Provider Name and Address Organization Details Last Updated DateTime 5 39950.5 g 76 /min 96 % 96 % 122 mm[Hg] 76 mm[Hg] [facility] 5 13:55:40 Date Recorded Body height Body mass index (BMI) Body weight Systolic blood pressure Diastolic blood pressure Provider Name and Address Organization Details Last Updated DateTime 11/26/2022 152.4 cm 17 kg/m2 68810.54 g 126 mm[Hg] 72 mm[Hg] Dianna Del Angel [facility] 3 09:59:39 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 Question Answer Notes LastModified by [email or web address] Details LastModified Time Tobacco Smoking Status Current [email or web address]/27[facility]2016 09:04:27 Live Alone Or With Others? Alone Information not available 03/07/2017 Marital Status Informatio n not available 03/07/2017 What Was The Date Of Your Most Recent Tobacco Screening? 10/01/2022 [email or web address] Information not available 10/01/2022 How Much Tobacco Do You Smoke? 1 PPD Information not available 08/27/2016 Has Tobacco Cessation Counseling Been Provided? No [email or web address] Information not available 12/14/2021 How Many Years Have You Smoked Tobacco? 20 Information not available 08/27/2016 Sex: Unknown Functional Status Question Answer Note LastModified by [email or web address] Details LastModified Time What is your level of alcohol consumption? 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 [place] [address] 07/17/2016 08:36:36 07/17/2016 10:23:18 Paresthesia 04497717 R20.2 Muscle weakness 11700488 M62.81 Muscle pain 36882369 M79 .1 Skin sensa tion disturbance 57873613 R20.9 [id number] JENNIFER COOPER MD [facility] [address] [place] [address] 08/27/2016 08:40:38 08/27/2016 14:00:43 Cervical radiculopathy 35076514 M54.12 [id number] JENNIFER COOPER MD NEUROSURG [facility] CLOSED [address] [place] [address] 10/08/2016 10:02:12 10/08/2016 13:45:17 Cervical radiculopathy 99407058 M54.12 15 minutes spent reviewing images, discussing the diagnosis and coordinati ng care. [id number] MADIE HOPPER MD NEUROLOGY [facility] CLOSED [address] [place] [address] 03/07/2017 08:17:12 03/07/2017 09:16:01 Cervicogenic headache 106311637 G44.89 Mrs. Mclean is a 61-year-ol d [...] than 50% time in counseling Muscle pain 52591463 M79 .1 -as above. Paresthesia 62214335 R20 .2 LLE, possibly from cervical cord compressio n; no low back pain, reflexes intact and brisk Pain in le ft lower limb 483954966 M79.605 pain and weakness LLE - as above [id number] MADIE HOPPER MD NEUROLOGY [facility] [address] [place] [address] 09/12/2017 08:33:47 09/12/2017 10:33:24 Paresthesia 19851417 R20.2 LLE, most likely from cervical cord compressio n; no low back pain, reflexes intact and brisk, weakness in upper motor neuron pattern Cervicogenic headache 27 6576835 G44.89 Mrs. Mclean is a 61-year-ol d [...] inue cyclobenza gloria 10 mg qhs-Contin ue HmJ34-Upgg me magnesium daily- She is interested in CBD oil. This may be helpful. I've provided literature .- if pain signficant worsens, she is to get back in with Dr. Cooper FU 12 month or sooner PRN Muscle pain 48961375 M79 .1 -as above. 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 Cervical myelopathy 2025 91255 G95.9 she has exam finding and symptoms suggestive of myelopathy - following with Dr. Cooper on as needed basis [id number] MADIE HOPPER MD NEUROLOGY [facility] 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 Recent ER visit for BLE giving out, severe pain both legs and L arm. Suspect from cervical stenosis. - scheduled wtih Dr. Cooper Headache 04193762 R51 cervicogen ic -- f/u with Dr. Cooper Cervicogenic headache 27 9487045 G44.89 Mrs. Mclean is a 62-year-ol d [...] d she discuss SL CBD oil with [facility] FU 12 month or sooner PRN Muscle pain 45971435 M79 .12 -as above. Paresthesia 45693323 R20 .2 LLE, most likely from cervical cord compressio n; no low back pain, reflexes intact and brisk, weakness in upper motor neuron pattern Pain in le ft lower limb 662514534 M79.605 pain and weakness LLE - as above LUE/LLE paresthesi as, pain LLE Cervical myelopathy 2025 53189 G95.9 she has exam finding and symptoms suggestive of myelopathy - following with Dr. Cooper on as needed basis 40 min appt with greater than 50% in counseling regarding probalbe cervical source of pain, weakness, importance of surgery if determined by Dr. Cooper Tobacco user 344089592 Z 72.0 She is still smoking 1PPD. Counseled that smoking contribute s to cervical spondylosi s, among so many other health risks including increased risk for heart attack, stroke and cancer. 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 Cervicogenic headache 27 2286059 G44.89 Mrs. Mclean is a 63-year-ol d [...] resume magnesium qhs- Continue CBD oil with [facility] FU 12 month or sooner PRN Muscle pain 57608307 M79 .12 -as above. consider trigger point injections Cervical myelopathy 2025 09766 G95.9 she has exam finding and symptoms suggestive of myelopathy - following with Dr. Cooper on as needed basis 30 min appt with greater than 50% in counseling regarding probable cervical source of pain, weakness Tobacco user 277871647 Z 72.0 She is still smoking 1PPD. Counseled that smoking contribute s to cervical spondylosi s, among so many other health risks including increased risk for heart attack, stroke and cancer. 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 - juan richard -- as above for headaches - stop smoking - continue vitamins, vit D, Ca and start a MVI Cervicogenic headache 27 9529399 G44.89 Mrs. Mclean is a 64-year-ol d [...] 12 min 2 min Rx Muscle pain 74019188 M79 .12 -as above. consider trigger point injections Cervical myelopathy 2025 41683 G95.9 she has exam finding and symptoms suggestive of myelopathy - following with Dr. Cooper on as needed basis Tobacco user 428323032 Z 72.0 She is still smoking 1PPD. Again counseled that smoking contribute s to cervical spondylosi s, among so many other health risks including increased risk for heart attack, stroke and cancer. [id number] ALEX ANTONY MD NEUROLOGY [facility] [address] [place] [address] 12/14/2021 08:18:29 12/14/2021 11:06:39 Migraine 19737243 G43.909 Neck pain 80069945 M54.2 [id number] ALEX ANTONY MD NEUROLOGY [facility] [address] [place] [address] 10/01/2022 14:03:41 10/01/2022 14:53:27 Spinal stenosis in cervical region 20874116 M48.02 Spinal cord disease 4852 2002 G95.9 Lumbar radiculopathy 128 997416 M54.16 [id number] JENNIFER COOPER MD NEUROSURG [facility] CLOSED [address] [place] [address] 11/26/2022 09:39:10 11/27/2022 04:45:38 Lumbar radiculopathy 712919045 M54.16 [id number] ALEX ANTONY MD NEUROLOGY [facility] [address] [place] [address] 08/02/2023 14:54:56 08/19/2023 04:24:09 Pain in left lower limb 408926741 M79.605 [id number] ALEX ANTONY MD NEUROLOGY [facility] [address] [place] [address] 1 08/23/2023 12:43:25 08/24/2023 04:25:39 Lumbar radiculopathy 908211221 M54.16 Paresthesi a of lower extremity 605367806 R20.2 [id number] ALEX ANTONY MD NEUROLOGY [facility] [address] [place] [address] 10/28/2024 13:27:09 10/29/2024 04:12:25 Neck pain 19349623 M54.2 Lumbar radiculopathy 128 006908 M54.16 Health Concerns Section Related Observation LastModified by Organization Detai ls LastModified Time None Recorded Concern Status LastModified by Organization Details LastModified Time None Recorded Advance Directives Directive None Recorded Payers Insurance Date Sequence Insurance Name Policy Number Policy Evangelista Covered Member ID Evangelista Member ID Guarantor Name 06/15/2020 1 [place] [id number] Brisa R Vinay [id number] Brisa R Vinay 10/25/2024 1 [place]MEDICARE REPLACEMENT REGIONAL PPO) [id number] Brisa R Vinay [id number] Brisa R Vinay 12/14/2021 1 [place] [id number] Brisa R Vinay [id number] Brisa R Vinay Notes Date Note [...] 2019 but not done. ALEX ANTONY MD [address] [place] [address], [phone], [facility] 10/01/2022 18:40:30 11/26/2022 text/html Mrs. Mclean is [...] MRI of the lumbar spine performed at [facility] on October 19, 2022. JENNIFER COOPER MD [address] [place] [address], [phone], [facility] 11/26/2022 10:21:03 08/02/2023 text/html Visit today is b eing conducted via telehealth using both audio/video. The patient confirms that he/she is physically located in [place] at the time of this visit. Patient [...] and the latter pursued. ALEX ANTONY MD [address] [place] [address], [phone], [facility] 08/18/2023 16:51:26 10/28/2024 text/html She was seen a year ago with tingling of the left leg distally in bed at [facility].EMG showed mild abnormality suggestive of [...] bone densitywas on reclast. ALEX ANTONY MD [facility] [place], [address], [facility] 10/28/2024 18:01:59 OBGyn Episode No OBEpisode recorded.
[2024-12-24] MEDS: SODIUM CHLORIDE 0.9% 10ML SYR (RAD ONLY) 10 ML IV (10:23)
[2024-12-24] MEDS: IOPAMIDOL-370 (76%);100ML BOTTLE 75 ML IV (10:23)
[2024-12-24 10:28] LABS: C-Reactive Protein 5.1 mg/L (0-4)
--- NOTE | 2024-12-24 10:30 | HMH.EDGENADL ---
Discharge Plan Disposition Patient Disposition: Home, Self-Care Condition: Good Prescriptions Prescriptions: New clindamycin HCl [Cleocin HCl] 300 mg capsule 300 mg PO TID 7 Days Qty: 21 0RF No Action cholecalciferol (vitamin D3) 25 mcg (1,000 unit) capsule 25 mcg PO DAILY Anoro Ellipta 62.5-25 mcg/actuation blister with device 1 inh inhalation DAILY 90 Days Qty: 180 2RF ipratropium-albuterol 0.5 mg-3 mg(2.5 mg base)/3 mL solution for nebulization 3 ml inhalation Q4-6H PRN (Reason: shortness of breath or wheezing) 30 Days Qty: 90 0RF budesonide 3 mg capsule,delayed,extend.release 6 mg PO DAILY cyclobenzaprine 10 mg tablet 10 mg PO HS lisinopril 10 mg tablet 10 mg PO DAILY Qty: 30 5RF albuterol sulfate 90 mcg/actuation HFA aerosol inhaler 2 puff INHALATION Q6 Patient Comments: INHALE TWO PUFFS BY MOUTH EVERY 6 HOURS NEEDED FOR SHORTNESS OF BREATH OR wheezing Referrals Follow up/Referrals: Loy Cruz MD [Primary Care Provider, Family Practice] - See instructions Activity Restrictions/Add. Instructions Additional Instructions/Restrictions: You were evaluated in the emergency department today. You were diagnosed with inflammation of your bilateral salivary glands. Since this is bilateral, it could be related to infection, so we are prescribing you a course of antibiotics to see if this helps clear this up. I also recommend supportive care with sour candies/foods to help increase saliva production, warm compresses such as heating pad, and [id number]-[id number] pain medication such as Tylenol and ibuprofen. Please follow-up very closely with your primary care provider over the next 72 hours for reassessment. Return to the emergency department right away for new or worsening symptoms. Clinical Impressions Clinical Impression: Acute sialoadenitis Stand Alone Forms Stand Alone Forms: Work/School Release Instructions Patient Instructions: Parotitis Print Language Print Language: [place] Discharge ED Provider: Krystal Turner General Adult HPI General Chief complaint: Allergic Reaction Stated complaint: swelling face and neck, poss allergic reaction Time Seen by Provider: 12/24/24 09:30 Mode of Arrival: Ambulatory Source of Information: Patient Description of Symptoms (Recalled from ER Triage Doc. by RN): pt states she woke up at 0600 with swelling under her jaw into her neck. pt keeps clearing throat, pt denies difficulty swallowing. states pt voice does sound normal to him. pt does take Lisinopril. History of Present Illness HPI narrative: This patient is a 69-year-old female with a history of tobacco use, hypertension on lisinopril, hyperlipidemia, emphysema, and allergies to sulfa drugs, Robaxin, and penicillin presenting to the emergency department for evaluation concern for swelling of her neck and jaw. Patient states that she woke up this morning around 6:00 AM with swelling under her jaw extending down into her neck and feels like it is hard to swallow. She denies any trouble breathing, but she is clearing her throat frequently. She states that she was fine when she went to bed last night. She has never experienced anything like this in the past. She denies any new changes in medications or any new exposures. She does state that she had a coronary CTA yesterday but was feeling fine afterward, she notes she has had contrast before without issue. She denies any fevers, cough, congestion, rashes, abdominal pain, nausea, vomiting, or diarrhea. She does note that she is having significant left ear pain and also has a bug bite behind her left ear on her neck. Related Data Home Medications ?Medication ?Instructions ?Recorded ?Confirmed albuterol sulfate 90 mcg/actuation 2 puff inhalation Q6 wheezing 08/03/24 12/23/24 aerosol inhaler cholecalciferol (vitamin D3) 25 25 mcg PO DAILY 08/20/24 12/23/24 mcg (1,000 unit) capsule budesonide 3 mg 6 mg PO DAILY 12/08/24 12/23/24 capsule,delayed,extended release cyclobenzaprine 10 mg tablet 10 mg PO HS 12/08/24 12/23/24 Previous Rx's ?Medication ?Instructions ?Recorded ipratropium 0.5 mg-albuterol 3 mg 3 ml inhalation Q4-6H PRN 09/28/24 (2.5 mg base)/3 mL nebulization shortness of breath or wheezing 30 soln days #90 mL umeclidinium 62.5 mcg-vilanterol 1 inh inhalation DAILY 90 days 09/28/24 25 mcg/actuation powdr for #180 ea inhalation (Anoro Ellipta) lisinopril 10 mg tablet 10 mg PO DAILY #30 tabs 12/08/24 clindamycin HCl 300 mg capsule 300 mg PO TID 7 days #21 caps 12/24/24 (Cleocin HCl) Allergies Allergy/AdvReac Type Severity Reaction Status Date / Time Sulfa (Sulfonamide Allergy Mild rash Verified 12/23/24 11:58 Antibiotics) methocarbamol (From Robaxin) Allergy Unknown Verified 12/23/24 11:58 allergy reaction Penicillins Allergy Unknown Verified 12/23/24 11:58 allergy reaction PFSH [facility] Disclaimer: The information contained in this section may have been updated after the patient was seen, as this information can be updated by other users. 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 Other chest pain Other forms of dyspnea Essential hypertension Dyspnea on exertion History of smoking 30 or more pack years Pulmonary emphysema Tick bite Vaccine counseling Encounter for screening for diabetes mellitus Screening cholesterol level Colon cancer screening Cervical cancer screening Breast cancer screening by mammogram Encounter for annual wellness visit (AWV) in Medicare patient Strep sore throat Otitis media of right ear Sinusitis Low back pain Muscle spasm Back pain Upper respiratory infection Acute viral syndrome Bronchitis Dyspnea Allergy to sulfa drugs Itching Migraine Otitis media Viral syndrome COPD exacerbation Exposure to COVID-19 virus Viral syndrome Syncope and collapse Abdominal pain Fatigue COPD exacerbation Chest pain Lumbar radiculopathy Viral upper respiratory illness Skin problem Surgical History Hx of fusion of cervical spine H/O tubal ligation Family History Father Coronary artery disease Mother Cancer Sister Cancer Sister Cancer Hypertension Son Hyperlipidemia 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 Smoking Status: Former smoker years smoked: 30 alcohol intake: never current occupational status: retired Travel in the last 8 weeks?: None caffeine: Yes Have you lived/traveled outside [place] in past 30 days?: No Contact w/someone who lives/traveled outside US past 30 days?: No Exposure to someone with infectious disease in past 14 days?: No Do you have a fever (greater than 100.4 F or 38 C)?: No Have you tested positive for COVID-19?: No Exposed to someone with COVID-19 in past 14 days?: No Do you have a sore throat?: No Do you have a cough?: No Do you have any weakness?: No Do you have any diarrhea?: No Are you experiencing any unusual bleeding?: No Do you have any muscle aches/pain?: No Do you have any abdominal pain?: No Are you experiencing loss of taste or smell?: No Other 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 Have you received the Flu Vaccine for this season: No Have you received the Pneumonia Vaccine: Yes ROS Obtained: Yes All systems reviewed & no additional complaints except as documented Physical Exam General General appearance: alert and in no apparent distress Head Head exam: atraumatic and normocephalic Eye Eye exam: Present normal appearance, PERRL and EOMI ENT ENT exam: Present normal oropharynx, mucous membranes moist, TM's normal bilaterally, normal external ear exam and other (no obvious oral abscess, no tongue swelling, no subungual swelling, no uvular edema, no drooling/trismus) Neck Neck exam: Present full ROM, trachea midline, tenderness (submandibular extending into anterior soft tissues of neck) and other (significant submandibular and anterior neck swelling) Expanded Neck Exam Neck image:  1. small erythematous bump consistent with likely insect bite, no surrounding fluctuance, induration, or red streaking away Chest Chest inspection: Present normal inspection and symmetric chest wall rise; Absent tenderness Respiratory Respiratory exam: Present normal lung sounds bilaterally; Absent respiratory distress, wheezes, stridor or accessory muscle use Cardiovascular Cardiovascular exam: Present regular rate and normal rhythm Abdominal Exam Abdominal exam: Present soft; Absent distention, tenderness or guarding Extremities Exam Extremities exam: Present normal inspection, full ROM and normal capillary refill; Absent tenderness or edema Back Exam Back exam: Present normal inspection and full ROM; Absent tenderness Neurological Exam Neurological exam: Present alert, oriented X3, CN II-XII intact and normal gait; Absent motor sensory deficit Psychiatric Psychiatric exam: Present normal affect and normal mood Skin Skin exam: Present warm and dry Medical Decision Making Medical Records Medical records reviewed: Yes I reviewed the patient's medical records. Screening: Per USPSTF and CDC recommendations, given the prevalence of disease in our region, it is our hospital?s policy to screen for HIV and viral Hepatitis for all patients aged 18 and over and those with ongoing risk factors. [place] Inquiry Pt receiving controlled substance: No Vital Signs: 12/24/24 09:27 12/24/24 09:47 12/24/24 10:00 Temperature 98.4 F Temperature Source Oral Pulse Rate 69 78 Pulse Rate [Right Radial] 74 Respiratory Rate 20 21 19 Blood Pressure 156/84 H 167/98 H Blood Pressure [Right Arm] 140/83 Blood Pressure Mean [Right Arm] 102 Blood Pressure Source Blood Pressure Source [Right Arm] Automatic Cuff Blood Pressure Position Blood Pressure Position [Right Arm] Sitting 02 Sat by Pulse Oximetry 98 100 100 Oxygen Delivery Method Room Air 12/24/24 10:31 12/24/24 11:04 Temperature Temperature Source Pulse Rate 77 74 Pulse Rate [Right Radial] Respiratory Rate 18 18 Blood Pressure 163/88 H 148/76 H Blood Pressure [Right Arm] Blood Pressure Mean [Right Arm] Blood Pressure Source Automatic Cuff Automatic Cuff Blood Pressure Source [Right Arm] Blood Pressure Position Sitting Sitting Blood Pressure Position [Right Arm] 02 Sat by Pulse Oximetry 99 99 Oxygen Delivery Method Room Air Room Air Lab Data Lab results reviewed: Yes I reviewed the patient's lab results. Lab Results 12/24/24 09:43: WBC 11.7 H, RBC 4.30, Hgb 12.8, Hct 39.8, MCV 92.6, MCH 29.8, MCHC 32.2, RDW 14.0, Plt Count 328, MPV 8.8, Neut % (Auto) 75.6, Lymph % (Auto) 14.4, [place] % (Auto) 7.5, Eos % (Auto) 1.6, Baso % (Auto) 0.3, Neut # (Auto) 8.8 H, Lymph # (Auto) 1.7, [place] # (Auto) 0.9, Eos # (Auto) 0.2, Baso # (Auto) 0.0, Sodium 143, Potassium 3.7, Chloride 109 H, Carbon Dioxide 27, Anion Gap 10.7, BUN 13, Creatinine 0.90, Estimated Creat Clear 35, Estimated GFR 62, Est GFR ( Amer) 75, Glucose 109 H, Calcium 9.2, Total Bilirubin 0.2, AST 41 H, ALT 38, Alkaline Phosphatase 72, C-Reactive Protein 5.1 H, Total Protein 7.2, Albumin 4.0, Globulin 3.2, Albumin/Globulin Ratio 1.3 12/24/24 10:30: Urine Color Yellow, Urine Appearance Sl cloudy, Urine pH 6.0, Ur Specific [place] <= 1.005, Urine Protein Negative, Urine Glucose (UA) Negative, Urine Ketones Negative, Urine Blood Negative, Urine Nitrate Negative, Urine Bilirubin Negative, Urine Urobilinogen 0.2, Ur Leukocyte Esterase Trace, Urine RBC None, Urine WBC None, Ur Squamous Epith Cells None, Urine Bacteria None 12/24/24 09:43 12/24/24 09:43 Orders (Tests/Meds): ED MEDICATIONS Generic Name Dose Route Start Last Admin Trade Name Reese PRN Reason Stop Dose Admin Sodium Chloride 8 ml 12/24/24 09:36 Sodium Chloride 0.9% 10ml Vial IV 01/23/25 09:35 NEEDED PRN dilute pepcid Discontinued Medications Generic Name Dose Route Start Last Admin Trade Name Reese PRN Reason Stop Dose Admin Diphenhydramine HCl 50 mg 12/24/24 09:35 12/24/24 09:59 Diphenhydramine 50mg/Ml Vial IV 12/24/24 09:36 50 mg ONCE ONE Administration Epinephrine HCl 0.3 mg 12/24/24 09:36 12/24/24 09:56 Epinephrine 1 Mg/Ml Ampul IM 12/24/24 09:37 0.3 mg ONCE ONE Administration Famotidine 20 mg 12/24/24 09:36 12/24/24 09:54 Famotidine 20mg/2ml Vial IV 12/24/24 09:37 20 mg ONCE ONE Administration Lactated Ringer's 1,000 mls @ 999 mls/hr 12/24/24 09:35 12/24/24 09:50 Lactated Ringer's 1000 Ml Bag IV 12/24/24 10:35 999 mls/hr .Q1H1M ONE Administration Iopamidol 75 ml 12/24/24 10:22 12/24/24 10:23 Iopamidol-370 (76%);100ml Bottle IV 12/24/24 10:23 75 ml ONCE ONE Administration Ketorolac Tromethamine 15 mg 12/24/24 11:08 Ketorolac 30mg/Ml Vial IV 12/24/24 11:09 ONCE ONE Methylprednisolone Sodium Succinate 125 mg 12/24/24 09:35 12/24/24 09:51 Methylprednisolone Sod Succ 125mg Vial IV 12/24/24 09:36 125 mg ONCE ONE Administration Sodium Chloride 10 ml 12/24/24 10:22 12/24/24 10:23 Sodium Chloride 0.9% 10ml Syr (Rad Only) IV 12/24/24 10:23 10 ml ONCE ONE Administration ORDERS Category Date Time Status CT soft tissue neck w con Stat Cat Scan 12/24/24 09:35 Completed CRP [C-Reactive Protein] Stat Lab 12/24/24 09:43 Completed Complete Blood Count Auto Diff Stat Lab 12/24/24 09:43 Completed Comprehensive Metabolic Panel Stat Lab 12/24/24 09:43 Completed ESR [Erythrocyte Sedimentation Rate] Stat Lab 12/24/24 09:43 Received UA [Urinalysis and Microscopic] Stat Lab 12/24/24 10:30 Completed Medical Decision Narrative: In summary, this patient is a 69-year-old female presenting to the Emergency Department for evaluation of swelling of her anterior neck and below her chin that she woke up with this morning. She also complains of left ear pain and an insect bite to the posterior left neck. Differential diagnoses considered include but are not limited to bradykinin/lisinopril mediated angioedema, anaphylaxis, cellulitis, sialoadenitis, abscess, Orlin's angina. Ruling out the most morbid conditions drove assessment. It should be noted patient's history includes COPD, tobacco use, hypertension, hyperlipidemia which may or may not be at goal therapy. This complicates all aspects of care by increasing patient's risk for morbidity. I reviewed patient's past medical records and noted coronary CTA yesterday that was obtained with a coronary calcification score of 75. On exam, the patient is sitting upright in no acute distress patient does have significant submandibular and swelling with no drooling, trismus, or stridor. She is not in any respiratory distress. No uvular edema, tongue edema, subungual edema, or obvious oropharyngeal lesions noted. She does complain of significant left ear pain and has an insect bite to the posterior left neck, but her left ear exam is normal. Given concerns that this could be allergy mediated angioedema, though I do not feel that it is the most likely, I elected to administer IV Benadryl, Pepcid, methylprednisolone, and IM epinephrine. Will reassess afterward. Workup included CBC, CMP, ESR, CRP, and CT soft tissue neck with IV contrast. I independently interpreted CT scan prior to the radiologist read and noted bilateral sialoadenitis with no evidence of Orlin's angina or deep space infection. Please see their read for final interpretation. Labs were obtained that demonstrated very mild leukocytosis at 11, mild elevation in CRP. Labs are otherwise reassuring. On reassessment, patient is stable without significant interval change after administration of his above. She has had no worsening clinically. She is in no respiratory distress with no drooling, stridor, trismus, and vitals remain reassuring. Overall, exam and imaging consistent with bilateral sialadenitis, which could be infectious versus inflammatory versus stone obstruction. Given acute onset of bilateral symptoms, will elect to treat with antibiotics in case this could be infectious. She is penicillin allergic, so I prescribed clindamycin. I also reviewed literature and noted that beta-blockade can cause acute salivary gland dysfunction, and she did receive beta-blockers yesterday with her coronary CTA for rate control. This could be contributing. In addition to the antibiotic, I also instructed her on supportive care with sour foods/candies, warm compresses, and anti-inflammatories for pain control. She was given strict return precautions as well as very close follow-up with primary care. I do not feel this is true angioedema based on workup, exam, and imaging, so she was not prescribed EpiPen and I did not make changes to her medication regimen consisting of lisinopril. Critical Care Critical Care Time Critical Care Time: Yes Attestation: On 12/24/24, the high probability of a clinically significant, sudden or life threatening deterioration of the following system(s) required my full and direct attention, intervention and personal management. The time I documented below is in addition to time spent performing reported procedures but includes the following listed in this critical care notation. Total Time Total Critical Care Time: 35
[2024-12-24 10:31] VITALS: BP 163/88; PULSE 77; RESP 18; O2SAT 99
--- NOTE | 2024-12-24 10:31 | PC.NURSE ---
pt returned from CT scan.
[2024-12-24 10:34] LABS: Microscopic, Urine URINE MICROSCOPIC (MICROSCOPIC)
[2024-12-24 10:38] LABS: Appearance,Urine SL CLOUDY (Clear); Bilirubin,Urine Negative (Negative); Blood, Urine Negative (Negative); Color,Urine YELLOW (Yellow); Glucose,Urine (UA) Negative (Negative); Ketones,Urine Negative (Negative); Leukocyte Esterase,Urine TRACE (Negative); Nitrate,Urine Negative (Negative); Protein,Urine Negative (Negative); Specific Gravity, Urine <= 1.005 (1.005-1.030); Urobilinogen,Urine 0.2 EU/dl (0.2)
[2024-12-24 11:04] VITALS: BP 148/76; PULSE 74; RESP 18; O2SAT 99
[2024-12-24 11:16] VITALS: BP 148/76; PULSE 74; RESP 18; TEMP 36.6; O2SAT 98
[2024-12-24 11:25] LABS: Erythrocyte Sedimentation Rate 13 mm/hr (0-30)
[2024-12-24] MEDS: KETOROLAC 30MG/ML VIAL 15 MG IV (11:26)
== END 2024-12-24 11:44 | disposition home or self-care (01) ==
PROVIDERS: Emergency Provider Emergency Medicine; PCP Family Medicine
DX: K11.21 Acute sialoadenitis (principal); R22.0 Localized swelling, mass and lump, head; Z87.891 Personal history of nicotine dependence
CPT/HCPCS: 70491; 80053; 81001; 85025; 85651; 86140; 96361; 96374; 96375; 99285; J0171; J1200; J1885; J2919; J7120; Q9967

== ENCOUNTER 2025-01-30 11:07 | Emergency (ER) | payer MEDICARE, SELFPAY ==
[2025-01-30 11:15] VITALS: BP 155/84; PULSE 83; RESP 17; TEMP 36.7; O2SAT 99; BMI 18.6
--- OUTSIDE RECORDS SUMMARY | 2025-01-30 11:29 | XMS_ITS | Encounter Summary ---
Author Organization Healthcare Address [address] [place] [address] Care Team Providers Care Clinic Assistant Name Role Phone Loy Cruz MD Primary Care Provider [phone] Encounter Details Date Type Department Care Team (Late st Contact Info) Description 08/02/2024 Orders Only External Location [address] [place] [id number] Provider, External 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 Tobacco Use Types Packs/Day Years Used Date Smoking Tobacco: Every Day Cigarettes 1 41.5 Started: 1983 Passive Smoke Exposure: Current Smokeless Tobacco: Never Comments No Sex and Gender Information Value Date Recorded Sex Assigned at Not on file Legal Sex Female 7:41 PM EDT Gender Identity Not on file Sexual Orientation Not on file documented as of this encounter Plan of Treatment Upcoming Encounters Date Type Department Care Team (Late st Contact Info) Description 02/10/2025 10:15 AM EDT Office Visit [facility] [address] [facility] [place] [id number] Hernandez Arzate MD [address] [place] [address] 03/03/2025 3:30 PM EDT Office Visit [facility] [address] [place] [address] Rita Amezcua MD [address] [place] [address] documented as of this encounter Procedures Procedure Name Priority Date/Time Associated Diagnosis Comments CT OUTSIDE IMAGES 08/02/2024 11:34 PM EST documented in this encounter Results * CT OUTSIDE IMAGES (08/02/2024 11:34 PM EST) Anatomical Region Laterality Modality Computed Tomogra phy 08/02/2024 11:3 4 PM EST us External Provider IMG CT PROCEDURES Final Result documented in this encounter Visit Diagnoses Not on filedocumented in this encounter Additional Health Concerns Assessment Noted Time A Body Mass Index follow-up plan has been documented for the patient 04/07/2024 8:13 AM EDT documented as of this encounter Care Teams Clinic Assistant Relationship Specialty Start Date End Date Loy Cruz MD PCP - General 08/31/22 documented as of this encounter
--- OUTSIDE RECORDS SUMMARY | 2025-01-30 11:29 | XMS_ITS | Referral Summary ---
Author Organization [employer] ([place], [place], [place], [place]) Address [address] [place] [address] Care Team Providers Care Spray Unit Feeder Name Role Phone Loy Cruz MD Primary Care Provider [phone] Allergies Active Allergy Reactions Criticality Noted Date Comments Amoxicillin 08/03/2022 Eggshell Membrane Rash Low 10/30/2022 1burning in stomach Hydroxyzine Other (See Comments) 08/02/2022 Levofloxacin Nausea And Vomiting,Other (See Comments) 04/10/2023 Abdominal pain Methocarbamol Hives High 01/19/2014 Penicillins 08/02/2022 Medications albuterol HFA (VENTOLIN HFA) 90 mcg/actuation inhaler albuterol sulfate HFA 90 mcg/actuation aerosol inhaler INHALE 2 PUFFS BY MOUTH EVERY 6 HOURS NEEDED Active cyclobenzaprin e (FLEXERIL) 10 MG tablet cyclobenzaprine 10 mg tablet Active coenzyme Q10 10 mg capsule coenzyme Q10 200mg qd Active cholecalcifero l, vitamin D3, 2,000 unit Tab Take 1 tablet (2,000 Units total) by mouth daily. Active acetaminophen (TYLENOL) 325 MG tablet Take 2 tablets (650 mg total) by mouth every 6 (six) hours as needed for Pain. Activ e loperamide HCl/simethicon e (IMODIUM ADVANCED ORAL) Take by mouth. Active Active Problems Problem Noted Date Diagnosed Date Polyp of cecum 05/08/2023 Overview (05/08/2023): less than 5mm; path states focal active colitis - Aug 2016 Anemia 11/30/2022 Overview (11/30/2022): 1history of Arm numbness left 11/30/2022 Chronic diarrhea 11/30/2022 Hard of hearing 11/30/2022 Joint pain 11/30/2022 Muscle weakness 11/30/2022 Numbness and tingling in left hand 11/30/2022 Pneumonia 11/30/2022 Overview (11/30/2022): 2had once before that - doesn't remember when Microscopic colitis 11/30/2022 Spinal stenosis of cervical region 11/30/2022 Collagenous colitis 05/02/2021 Arthritis 09/22/2020 Chronic obstructive pulmonary disease 09/22/2020 Encounter for gynecological examination (general) (routine) without abnormal findings 09/22/2020 Migraine headache 09/22/2020 Osteoporosis without current pathological fracture, unspecified osteoporosis type 09/22/2020 Hemorrhoids 07/24/2019 Paresthesia 07/17/2016 Pain of right lower extremity 06/07/2016 Headache 12/05/2015 Neck pain 12/05/2015 Cervical disc disorder 12/05/2015 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 Tobacco Use Types Packs/Day Years Used Date Smoking Tobacco: Every Day Cigarettes 1 25 Passive Smoke Exposure: Current Smokeless Tobacco: Never Tobacco Cessation:Ready to Q uit: No; Counseling Given: Yes Alcohol Use Standard Drinks/Week Comments Never 0 (1 standard drink = 0.6 oz pur e alcohol) Family and Community Support Answer Kimo e Recorded Help with Day to Day Activities Not on file 08/04/2023 Feeling Lonely or Isolated Not on file 08/04 Educational Attainment Answer Date Toño rded Speak language other than Setswana at home Not on file 08/04/2023 Want help with school or training Not on file 08/04/2023 Substance Use Answer Date Recorded Used prescription meds for non-medical reasons N ot on file 08/04/2023 Used illegal drugs past 12 months Not on file 08/04/2023 Comments No Sex and Gender Information Value Date Recorded Sex Assigned at Not on file Legal Sex Female 3:39 PM CDT Gender Identity Not on file Sexual Orientation Not on file Last Filed Vital Signs Vital Sign Reading Time Taken Comments Blood Pressure 118/84 11/06/2023 1:32 PM EDT Pulse 88 11/06/2023 1:32 PM EDT Temperature 36.7 C (98.1 F) 04/18/2023 12:24 PM EDT Respiratory Rate 18 04/18/2023 12:24 PM EDT Oxygen Saturation 99% 04/18/2023 12:24 PM EDT Inhaled Oxygen Concentration - - Weight 39.4 kg (86 lb 12.8 oz) 11/06/2023 1:32 P M EDT Height 152.4 cm (5') 11/06/2023 1:32 PM EDT Body Mass Index 16.95 11/06/2023 1:32 PM EDT Plan of Treatment Not on file Procedures Procedure Name Priority Date/Time Associated Diagnosis Comments HM COLONOSCOPY Routine 10/30/2022 11:34 AM EDT Collagenous colitis DXA BONE DENSITY SPINE AND HIP Routine 08/05/2019 10:42 AM EST from Last 3 Months or Most Recently Relevant to Health Maintenance Results * DXA bone density spine and hip (08/05/2019 10:42 AM EST) Anatomical Region Laterality Modality Bone Radiographic Mary ging 08/05/2019 10:4 2 AM EST Narrative 08/05/2019 7:40 PM EST PROCEDURE: Bone densitometry (DXA). REASON FOR EXAM: Postmenopausal RISK FACTORS: Estrogen deficiency, tobacco usage COMPARISON STUDY: [facility] 2017 FINDINGS: Bone densitometry was performed using a [employer] QDR series machine. Sites measured included the spine and left hip. Both sites appear to be valid. Using L1-4, the bone mineral density of the spine is 0.801g/cm2, compared to 0.824g/cm2 on the prior exam. This corresponds to a T-score of -2.2 on the present exam, compared to a T-score of -2.0 previously. This represents an interval decrease since the prior study. Using the left femur, the bone mineral density of the hip is 0.625g/cm2, compared to 0.679g/cm2 on the prior exam. This corresponds to a T-score of -2.6 on the present exam, compared to a T-score of -2.2 previously. This represents an interval decrease since the prior study. NOTE: T-score: standard deviation compared with peak bone mass of young adult mean. Z-score: standard deviation compared with age-matched mean. * Following the recommendations of the International Society of Bone Densitometry, classification of hip BMD is based upon the lower of two T-scores; total hip or femoral neck. ASSESSMENT: OSTEOPOROSIS: Lowest T-score is at or below -2.5. This patient's T-score meets the World Health Organization criteria for osteoporosis. RECOMMENDATION: Consider antiresorptive therapy after excluding secondary causes of osteoporosis. Consider follow-up DEXA scan in 2 years. Left hip Procedure Note Zeb Varela MD - 11/06/2022 PROCEDURE: Bone densitometry (DXA). REASON FOR EXAM: Postmenopausal RISK FACTORS: Estrogen deficiency, tobacco usage COMPARISON STUDY: [facility] 2016 FINDINGS: Bone densitometry was performed using a [employer] QDR series machine. Sites measured included the spine and left hip. Both sites appear to be valid. Using L1-4, the bone mineral density of the spine is 0.801g/cm2, compared to 0.824g/cm2 on the prior exam. This corresponds to a T-score of -2.2 on the present exam, compared to a T-score of -2.0 previously. This represents an interval decrease since the prior study. Using the left femur, the bone mineral density of the hip is 0.625g/cm2, compared to 0.679g/cm2 on the prior exam. This corresponds to a T-score of -2.6 on the present exam, compared to a T-score of -2.2 previously. This represents an interval decrease since the prior study. NOTE: T-score: standard deviation compared with peak bone mass of young adult mean. Z-score: standard deviation compared with age-matched mean. * Following the recommendations of the International Society of Bone Densitometry, classification of hip BMD is based upon the lower of two T-scores; total hip or femoral neck. ASSESSMENT: OSTEOPOROSIS: Lowest T-score is at or below -2.5. This patient's T-score meets the World Health Organization criteria for osteoporosis. RECOMMENDATION: Consider antiresorptive therapy after excluding secondary causes of osteoporosis. Consider follow-up DEXA scan in 2 years. Left hip us Zeb Varela MD IMG DXA ORDERABLES Final Result from Last 3 Months or Most Recently Relevant to Health Maintenance [facility] MAP Care Teams Spray Unit Feeder Relationship Specialty Start Date End Date Loy Cruz MD [address] [place] [address] PCP - General Family Medicine 04/18/23
--- OUTSIDE RECORDS SUMMARY | 2025-01-30 11:29 | XMS_ITS | Encounter Summary ---
Author Organization [email or web address] ([place], [place], [place], [place]) Address [address] [place] [address] Care Team Providers Care Workers' Compensation Commissioner Name Role Phone Loy Cruz MD Primary Care Provider [phone] Encounter Details Date Type Department Care Team (Late st Contact Info) Description 10/06/2020 Transcribed Document [facility] Family Medicine [address] [place] [address] ProviderMarly MD [address] [place] [address] 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 Tobacco Use Types Packs/Day Years Used Date Smoking Tobacco: Never Assessed Comments Unknown Sex and Gender Information Value Date Recorded Sex Assigned at Not on file Legal Sex Female 3:39 PM CDT Gender Identity Not on file Sexual Orientation Not on file documented as of this encounter Miscellaneous Notes * Cerner Conversion Note - Marly Ramsay MD - 10/06/2020 3:58 PM CDT Outpatient Visit History Entered On: 10/06/2020 16:07 EDT Performed On: 10/06/2020 15:58 EDT by JOSEFINA CORRIGAN RN Vital Measurements Temperature Source : Temporal artery scanning Temperature Mode : Fahrenheit Temperature, Fahrenheit : 96.8 Deg F Clinical Temperature, C : 36 Deg C Pulse Method : Non-Invasive BP Device Peripheral Pulse Rate : 90 bpm Respiratory Rate : 20 Breaths/Min Blood Pressure Location : Arm, right upper Blood Pressure Source : Non-Invasive BP Device Blood Pressure Position : Sitting Systolic Blood Pressure : 124 mmHg Diastolic Blood Pressure : 84 mmHg Oxygen Saturation : 98 % Oxygen Therapy Mode : Room air JOSEFNIA CORRIGAN RN - 10/06/2020 16:03 EDT Height and Weight, Clinical Dosing Height Source : Chart Height Entry Format : [place] Height, Feet : 5 ft(Converted to: 152 cm, 60 Inch) Height, Inches : 0 Inch(Converted to: 0 ft 0 Inch, 0.00 cm) Clinical Height : 152.4 cm Weight Source : Standing scale Weight Entry Format : [place] Clinical Dosing Weight : 43.18 kg Weight, Pounds : 95 lb Body Surface Area (BSA) : 1.36 m2 Body Mass Index : 18.6 kg/m2 (LOW) [place] Body Weight : 45 kg JOSEFINA CORRIGAN RN - 10/06/2020 16:03 EDT Quick Look Assessment Level of Consciousness : Alert Affect/Behavior : Calm Orientation : Oriented x 4 Skin Temperature : Warm Skin Description : Normal for ethnicity JOSEFINA CORRIGAN RN - 10/06/2020 16:03 EDT Health Histories Smoking Status : 10 or more cigarettes (1/2 pack or more)/day in last 30 days Smokeless Tobacco Status : Never Desires Tobacco Cessation Medication : No Reason for No Tobacco Cessation Medication : Refuses FDA approved medications JOSEFINA CORRIGAN RN - 10/06/2020 16:03 EDT 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 (As Of: 10/06/2020 16:07:08 EDT) Tobacco: Use in Last 12 Months: Cigarettes. Smoking Status Current every day smoker. Years of Use: 30. Packs/Tins Daily: 1. (Last Updated: 06/28/2014 09:35:18 EST by NICOLSA GIL RN) Alcohol: Use in Last 12 Months: No. (Last Updated: 06/28/2014 09:35:24 EST by NICOLAS GIL RN) Substance Abuse: Drug Use Hx: No. Use in Last 12 Months: No. (Last Updated: 06/28/2014 09:35:30 EST by NICOLAS GIL RN) Nutrition/Health: Caffeine intake amount: 3. (Last Updated: 05/24/2015 12:02:26 EST by ERIC SPENCER RN) Infectious Disease History Has the patient ever been tested for COVID-19? : Yes, Patient stated results Negative Date of COVID-19 test known? : No Does patient have symptoms of COVID-19? : No COVID19 Screening : No Experiencing Infectious Disease Symptoms : No symptoms Physical contact outside [place] in the last 30 days : No Infectious Disease History : Chicken pox/Shingles, Influenza Tuberculosis Symptoms : None JOSEFINA CORRIGAN RN - 10/06/2020 16:03 EDT COVID19 PreProcedure Screening Is this an Emergent or Add on Procedure? : No Date PreProcedure COVID-19 test known? : No Has patient been isolated since the test : No Exposed to COVID19 symptoms since test? : No COVID-19 PreProcedure Screening Comment : Received 1st Covid Vaccine on September 28, 2020 JOSEFINA CORRIGAN RN - 10/06/2020 16:03 EDT Advance Directive Patient has Advance Directive *Q : No, patient requests assist formulating Advance Directive JOSEFINA CORRIGAN RN - 10/06/2020 16:03 EDT [place] Suicide Severity Rating Scale (C-SSRS) CSSRS Past Month Wish to be : No CSSRS Past Month Suicidal Thoughts : No CSSRS Lifetime Suicide Behavior : No Suicide Severity Rating Score : 0 Suicide Severity Rating : No Additional Care Required at this time JOSEFINA CORRIGAN RN - 10/06/2020 16:03 EDT Psychosocial History Does Someone Depend on You for Care? : No Do You Have a History of the Following? : Patient denies history Currently in Unsafe Situation : No JOSEFINA CORRIGAN RN - 10/06/2020 16:03 EDT Fall Risk Scales ABCs Fall Injury Risk Identification : None MED[place] Hx Falls Immediate/Within 3 Months : No [place] Secondary Diagnosis : No MEDINA Use of Ambulatory Aid : None [place] IV Therapy or IV Access : No [place] Gait/Transferring : Normal, bedrest, immobile [place] Mental Status : Oriented to own ability [place] Fall Risk Score : 0 MED[place] Fall Scale Risk Level : 0-24 Low Risk [place] Fall Interventions : Adequate lighting, Call device within reach, Frequent orientation to call device, Frequent orientation to surroundings, Non-slip footwear, Personal items within reach, Room free of clutter/spills, Wheels locked, Wires/Cords secured JOSEFINA CORRIGAN RN - 10/06/2020 16:03 EDT Pain Assessment Location : Other: joints JOSEFINA CORRIGAN RN - 10/06/2020 16:07 EDT Pain Assessment : Initial assessment JOSEFINA CORRIGAN RN - 10/06/2020 16:03 EDT Intensity : 7 JOSEFINA CORRIGAN RN - 10/06/2020 16:07 EDT documented in this encounter Plan of Treatment Not on file documented as of this encounter Visit Diagnoses Not on filedocumented in this encounter Care Teams Workers' Compensation Commissioner Relationship Specialty Start Date End Date Loy Cruz MD [address] [place] [address] PCP - General Family Medicine 04/18/23 documented as of this encounter
--- OUTSIDE RECORDS SUMMARY | 2025-01-30 11:29 | XMS_ITS | Clinical Summary ---
Author Organization [employer] ([place], [place], [place], [place]) Address [address] [place] [address] Care Team Providers Care Sack Sorter Name Role Phone Loy Cruz MD Primary Care Provider [phone] Allergies Active Allergy Reactions Criticality Noted Date [...] Neck pain 12/05/2015 Cervical disc disorder 12/05/2015 Family History 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 Relation Name Comments Heart disease Father Breast cancer Mother Relation Name Status Comments Father Mother 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 Tobacco Use Types Packs/Day Years [...] Date Toño rded Speak language other than Bur[place]ian at home Not on file 08/04/2023 Want [...] 11/06/2023 1:32 PM EDT Plan of Treatment Health Maintenance Due Date Last Done Comments CT Colonography 1956 FOBT/FIT 1956 Fit-DNA (Cologuard) 1956 Sigmoidoscopy 1956 Depression Screening (12+) 1968 Hepatitis C Screening 1974 Pneumococcal 50+ years (1 of 2 - PCV) 12/10/1975 Shingles Vaccine (Zoster) (1 of 2) 2006 Respiratory Syncytial Virus (RSV) Adult or (1 - Risk 60-74 years 1-dose series) 2016 DXA SCAN 08/05/2021 08/05/2019, 08/05/2019 Medicare Initial AWV [id number] 11/20/2022 COVID-19 VACCINE (4 - 2023-2 5 season) 2024 05/31/2021, 10/26/2020, 09/28/2020 Falls Risk Screening 07/22/2024 Tobacco Cessation Counseling and Screening (12+) 11/05/2024 11/06/2023 Influenza Vaccine (#1) 2025 05/09/2021, 2019 Breast Cancer Screening 09/25/2025 09/26/19, 09/26/2023, 08/31/2022, Additional history exists DTAP/TDAP/TD VACCINES (2 - T d or Tdap) 01/12/2031 01/12/2021 Colonoscopy 10/30/2032 10/30/2022, 09/2016, 08/24/2016 Colorectal Cancer Screening 10/30/2032 Procedures Procedure Name Priority Date/Time Associated Diagnosis [...] FACTORS: Estrogen deficiency, tobacco usage [facility] FINDINGS: Bone densitometry was performed using a [employer] QDR series machine. Sites measured included the [...] FACTORS: Estrogen deficiency, tobacco usage COMPARISON STUDY: [facility] 2017 FINDINGS: Bone densitometry was performed using a [employer] QDR series machine. Sites measured included the [...] DEXA scan in 2 years. Left hip Zeb Varela MD [facility] DXA ORDERABLES Final Result from Last 3 Months or Most Recently Relevant to Health Maintenance Insurance [facility] [employer] ACCESS PPO MAP Care Teams Sack Sorter Relationship Specialty Start Date End Date Loy Cruz MD [address] [place] [address] PCP - General Family Medicine 04/18/23
--- OUTSIDE RECORDS SUMMARY | 2025-01-30 11:29 | XMS_ITS | Clinical Summary ---
Author Organization [facility] Address [address] [place] [address] Care Team Providers Care Food Safety Director Name Role Phone Loy Cruz MD Primary Care Provider [phone] Allergies Active Allergy Reactions Criticality Noted Date Comments Levofloxacin Nausea And Vomiting,Vomiting 04/10/2023 Abdominal pain Methocarbamol Hives,Other - please document in the comment field High 01/19/2014 Methylprednisolone Palpitations Low 07/24/2023 Penicillins Other - please docum ent in the comment field Low 08/02/2022 Medications albuterol 108 (90 Base) MCG/ACT inhaler INHALE TWO PUFFS BY MOUTH EVERY 6 HOURS NEEDED FOR SHORTNESS OF BREATH OR wheezing Active cholecalciferol (Vitamin D-3) 50 MCG (2000 UT) tablet Take 1 tablet (2,000 Units) by mouth 1 (one) time each day. Active coenzyme Q-10 10 MG capsule coenzyme Q10 200mg qd Active cyclobenzaprine (Flexeril) 10 MG tablet TAKE ONE TABLET BY MOUTH EVERY DAY AT BEDTIME MAY CAUSE DROWSINESS Active Active Problems Problem Noted Date Diagnosed Date Abdominal pain 01/20/2025 Abnormal abdominal x-ray 01/20/2025 Acute viral syndrome 01/20/2025 Anxiety 01/20/2025 Bronchitis 01/20/2025 Chest pain, pleuritic 01/20/2025 Colitis 01/20/2025 Dyspnea 01/20/2025 Exposure to COVID-19 virus 01/20/2025 Fatigue 01/20/2025 Itching 01/20/2025 Leukocytosis 01/20/2025 Low back pain 01/20/2025 Lumbar radiculopathy 01/20/2025 Mass of upper lobe of right lung 01/20/2025 Muscle spasm 01/20/2025 Otitis media of right ear 01/20/2025 Otitis media 01/20/2025 Sinusitis 01/20/2025 Skin problem 01/20/2025 Strep sore throat 01/20/2025 Syncope and collapse 01/20/2025 Vaccine counseling 01/20/2025 Viral upper respiratory illness 01/20/2025 Polyp of cecum 05/08/2023 Overview (01/20/2025): less than 5mm; path states focal active colitis - Aug 2016 Anemia 11/30/2022 Overview (01/20/2025): 1history of Arm numbness left 11/30/2022 Spinal stenosis of cervical region 11/30/2022 Chronic diarrhea 11/30/2022 Microscopic colitis 11/30/2022 Hard of hearing 11/30/2022 Joint pain 11/30/2022 Muscle weakness 11/30/2022 Numbness and tingling in left hand 11/30/2022 Pneumonia 11/30/2022 Overview (01/20/2025): 2had once before that - doesn't remember when Arthritis 09/22/2020 Chronic obstructive pulmonary disease 09/22/2020 Migraine headache 09/22/2020 Osteoporosis 09/22/2020 Hemorrhoids 07/24/2019 Paresthesia 07/17/2016 Pain of right lower extremity 06/07/2016 Overview (01/20/2025): From Automated Load;Provider: Madie Hopper;Status: Active Cervical disc disorder 12/05/2015 Overview (01/20/2025): From Automated Load;Provider: Madie Hopper;Status: Active Headache 12/05/2015 Overview (01/20/2025): From Automated Load;Provider: Madie Hopper;Status: Active Neck pain 12/05/2015 Overview (01/20/2025): From Automated Load;Provider: Madie Hopper;Status: Active Collagenous colitis 10/16/2014 Vitamin D deficiency 10/16/2014 Encounters Date Type Department Care Team Description 11/10/2024 2:21 PM EDT - 11/10/2024 11:59 PM EDT Hospital [facility] [address] [facility] [address] [place] [address] Encounter for screening mammogram for malignant neoplasm of breast Discharge Disposition: Home or Self Care 11/10/2024 Travel from Last 3 Months Immunizations Immunization Administration Dates Next Due Influenza Vaccine, Quadrivalent, Adjuvanted 04/22 Influenza, injectable, MDCK, preservative free, quadrivalent 05/09/2021 Influenza, injectable, quadrivalent 04/07/2020 Influenza, trivalent, adjuvanted 05/25/2024 Pneumococcal 20-suzi Conj Vaccine 05/25/2024 Tdap 01/12/2021 Family History 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 Relation Name Comments Breast cancer Mother Breast cancer Sister Relation Name Status Comments Mother Sister 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 Tobacco Use Types Packs/Day Years Used Date Smoking Tobacco: Every Day Cigarettes 1 41.5 Started: 1983 Passive Smoke Exposure: Current Smokeless Tobacco: Never Tobacco Cessation:Ready to Q uit: Not Asked; Counseling Given: Not Answered Comments No Sex and Gender Information Value Date Recorded Sex Assigned at Not on file Legal Sex Female 7:41 PM EDT Gender Identity Not on file Sexual Orientation Not on file Last Filed Vital Signs Vital Sign Reading Time Taken Comments Blood Pressure - - Pulse - - Temperature - - Respiratory Rate - - Oxygen Saturation - - Inhaled Oxygen Concentration - - Weight 38.6 kg (85 lb) 09/26/2023 1:54 PM EST Height 149.9 cm (4' 11 ) 09/26/2023 1:54 PM EST Body Mass Index 17.17 09/26/2023 1:54 PM EST Plan of Treatment Upcoming Encounters Date Type Department Care Team (Late st Contact Info) Description 02/10/2025 10:15 AM EDT Office Visit [facility] [address] [facility] [place] [address] Hernandez Arzate MD [address] [place] [address] 03/03/2025 3:30 PM EDT Office Visit [facility] [address] [place] [address] Rita Amezcua MD [address] [place] [address] Health Maintenance Due Date Last Done Comments [facility]-Depression Screening 1956 [facility]-Hepatitis C Screening 1956 [facility]-Medicare Annual Wellness (AWV) 1955 [facility]-Infant/Child/Adol SDOH Screenings 1956 [facility]- SDOH Screenings 1974 [facility]-Adult SDOH Screenings 1974 CT Colonography 2001 Colonoscopy 2001 FIT-DNA 2001 FIT 2001 FOBT 2001 Sigmoidoscopy 2001 [facility]-Colorectal Cancer Screening 2001 [facility]-Lung Cancer Screening 2006 [facility]-Zoster Vaccines (1 of 2) 2006 [facility]-Bone Density Scan 08/05/2020 08/05/2019 [id number] Vaccine ( season) 2024 05/31/2021, 10/26/2020, 09/28/2020 [facility]-Influenza Vaccine (#1) 03/22/202505/25, 05/17/2023, 05/09/2021, Additional history exists [facility]-Breast Cancer Screening 11/10/202610/21, 09/26/2023, 08/31/2022, Additional history exists [facility]-DTaP,Tdap,and Td Vaccines (2 - Td or Tdap) 01/12/2031 01/12/2021 [facility]-RSV Vaccine: 60+ Years or (1 - 1-dose 75+ series) 12/10/2031 [facility]-Pneumococcal Vaccine: 50+ Years Completed 05/25/2024 HPV Vaccines Aged Out No longer eligi ble based on patient's age to complete this topic [facility]-HIB Vaccines Aged Out No longer e ligible based on patient's age to complete this topic [facility]-Hepatitis A Vaccines Aged Out No longer eligible based on patient's age to complete this topic [facility]-IPV Vaccines Aged Out No longer e ligible based on patient's age to complete this topic [facility]-Rotavirus Vaccines Aged Out No lo nger eligible based on patient's age to complete this topic Procedures Procedure Name Priority Date/Time Associated Diagnosis Comments MAMMOGRAPHY BREAST SCREENING TOMOSYNTHESIS BILATERAL Routine 11/10/2024 3:03 PM EDT Encounter for screening mammogram for malignant neoplasm of breast from Last 3 Months Results * Mammography Breast Screening Tomosynthesis Bilateral (11/10/2024 3:03 PM EDT) Anatomical Region Laterality Modality Breast Bilateral Mammography Impressions 11/15/2024 12:47 PM EDT No mammographic evidence of malignancy. BI-RADS CATEGORY: Overall: 1 - Negative RECOMMENDATION: - Routine Screening Mammogram in 1 Year. Patient Lifetime Risk Score of Breast Malignancy: A risk score has not been calculated for this patient. This risk assessment is calculated using the Teagan Risk Assessment model which may underestimate the lifetime risk of breast malignancy. COMMUNICATION: Computer-aided detection (CAD) and tomosynthesis were utilized by the radiologist in the interpretation of this examination. The results and recommendations will be sent to the patient in a printed lay language version of the imaging report. Narrative 11/15/2024 12:47 PM EDT EXAM: Mammography Breast Screening with Tomosynthesis REASON FOR EXAM: Screening Mammogram HISTORY: Patient is 68 y.o. Family medical history includes breast cancer in 2 relatives (mother, sister). Hormone history includes control. COMPARISON STUDIES: Compared to: 07/24/2021 Mammography Breast Screening Tomosynthesis Bilateral at [facility] 08/31/2022 Mammography Breast Screening Tomosynthesis Bilateral at [facility] 09/26/2023 Mammography Breast Screening Tomosynthesis Bilateral at [facility] BREAST COMPOSITION: The breasts are heterogeneously dense, which may obscure small masses. FINDINGS: There are no suspicious masses, calcifications, or areas of architectural distortion. us Loy Cruz MD IMG BI PROCEDURES Final Result from Last 3 Months Insurance [facility] [employer] Care Teams Food Safety Director Relationship Specialty Start Date End Date Loy Cruz MD PCP - General 08/31/22
--- OUTSIDE RECORDS SUMMARY | 2025-01-30 11:29 | XMS_ITS | Data Portability ---
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 Will include lumbar MRI as well. [email or web address] Not available 10/01/2022 18:40:11 11/26/2022 11/26/2022 Mrs. [...] over telehealth. I will arrange for NCS/EMG. [email or web address] Not available 08/18/2023 16:51:09 10/28/2024 10/28/2024 1. Chronic low back pain - this is generally stablke 2. Mild chronic left lower lumbar radiculopathy 3. Neck pain at times; h/o ACDF Mostly she seems stable. She agrees. If back pain worsens/changes or any new symptoms arise, she knows to call. [email or web address] Not available 10/28/2024 18:01:48 Plan of Treatment Reminders Order Date Submit Date Provider Last Modified By Organization Details Last Modified Time Details Appointments None recorded. Lab None recorded. Referral None recorded. Procedures nerve conduction study/EMG, lower extremity (PROC) 2023 024 [id number] Alex Antony MD, [address] [place], [address], 4 07:48:35 Surgeries None recorded. Imaging MRI, lumbar spine, w/o contrast 2022 023 [facility], [address] [place], [address], 3 11:52:37 MRI, cervical spine, w/o contrast 2022 023 [email or web address] [facility], [address] [place], [address], 3 08:09:55 Medication Orders cyclobenzap rine 10 mg tablet 2024 025 [facility], [address] [facility] [address], [id number], 5 12:32:40 Patient TargetsNo targets recorded. Patient InstructionsNo instructions recorded. Reason for Referral None Reported. Results Created Date Observation Date Name Description Value Unit Range Abnormal Flag Note LastModifiedBy Organization Detail LastModifiedTime 10/20/19 23 10/19/2022 MRI, lumba r spine , w/o contr ast [place] [facility] [address] [facility] [place] [address] Blas garcia Name: BRISA garcia : 957 Blas garcia Orderi ng Provid er: ALEX ISAACS [...] large disc extrus ion extend ing inferi diaen into the right latera l recess at [...] Bhavin suárez MD on 023 11:47 AM [facility] [address] [place], [address], 11/04/2022 13:37:55 08/25/19 24 08/23/2023 nerve condu ction study /EMG, lower extre mity (PROC ) No observ ation record ed. [email or web address] Alex Antony MD [address] [place], [address], 08/25/2023 13:02:25 Result Notes Documentation Provider Name and Address Organization Details Recorded Time Mri, Lumbar Spine, W/o Contrast : [facility] [address] [place] [address] Patient Name: BRISA MCLEAN Patient : [id number] Patient Ordering Provider: ALEX ANTONY EXAM DATE: 10/19/2022 EXAM: MR LUMBAR W/O CONTRAST HISTORY: 66-year-old female with low back pain radiating to the left leg following a fall 3 weeks ago. COMPARISON: Radiograph dated 10/08/2016. FINDINGS: There is mild levocurvature of the upper lumbar spine and mild dextrocurvature at L4-L5. There is mild anterior listhesis of L5 on S1. No pars defect is identified. There is no fracture. There is mild anterior marginal osteophytic spurring. No pathologic lesion is identified in the lumbar spine. The conus medullaris is normal in appearance at the L1-L2 level. T12-L1: There is a mild disc bulge. There is no central canal stenosis or neural foraminal stenosis. L1-L2: There is a focal disc extrusion in the right lateral recess extending inferiorly. This extrusion extends inferiorly approximately 1.5 cm. There is also a small central disc protrusion. There is severe stenosis of the right lateral recess. There is no central canal stenosis. There is no neural foraminal stenosis. L2-L3: There is mild endplate spurring and a minimal disc bulge. There is no central canal stenosis. There is no neural foraminal stenosis. L3-L4: There is a mild disc bulge and mild endplate spurring. There is no central canal stenosis. There is no neural foraminal stenosis. L4-L5: There is a broad-based disc bulge/protrusion, mild endplate spurring and mild facet arthropathy. There is ligamentum flavum hypertrophy. There is no central canal stenosis. There is mild left and minimal right neural foraminal stenosis. L5-S1: There is a broad-based disc protrusion extending into the neural foramina and mild to moderate facet arthropathy. There is no central canal stenosis. There is moderate left and mild right neural foraminal stenosis. The paraspinous musculature is symmetric and normal in signal. IMPRESSION: 1. There is a large disc extrusion extending inferiorly into the right lateral recess at L1-L2. This results in severe stenosis of the right lateral recess. 2. There is moderate left and mild right neural foraminal narrowing at L5-S1, and mild left neural foraminal narrowing at L4-L5. Interpreted By: Wes Bonner MD ANTONY MD [address] [place] [address], [address], [facility] 10/22/2022 12:30:26 Problems Name Problem SNOMED Code Status Onset Date Resolution Date Notes Provider Name and Address Organization Details Recorded Time Paresthes ia 52702460 Active 2015 Monica Taylor (Nicky) [facility] 6 10:52:55 Pain in right lower limb 447125504 Active 2015 From Automated Load;Provi steph: Madie Hopper;Stat us: Active Not Available [facility] 7 06:51:54 Headache 78249225 Active 2015 From Automated Load;Provi steph: Madie Hopper;Stat us: Active Not Available [facility] 6 09:40:34 Neck pain 65195096 Active 2015 From Automated Load;Provi steph: Madie Hopper;Stat us: Active Not Available [facility] 6 09:40:34 Cervical disc disorder 163398698 Active 2015 From Automated Load;Provi steph: Madie Hopper;Stat us: Active Not Available [facility] 6 09:40:34 Problem Notes None recorded. Procedures Surgical History Date Name Laterality Status Provider Name and Address Organization Details Recorded Time 08/23/19 24 Electromyography (EMG) with Nerve Conduction Study (NCV) completed Monica Taylor (Nicky) [facility] 08/23/2023 14:37:25 12/09/19 22 tooth extraction completed Anna Sparks [facility] 12/14/2021 09:20:42 07/17/20 16 Electromyography (EMG) with Nerve Conduction Study (NCV) completed Monica Taylor (Nicky) [facility] 07/17/2016 09:45:02 06/29/20 14 Neck Surgery completed Shona Reynolds [facility] 08/27/2016 09:06:41 Imaging Results None recorded. Procedure Notes None recorded. Medical Equipment None Reported. Allergies Allergen ID Allergen Name Allergen Category Reaction Reaction Severity Criticality Documentation Date Start Date Code Code System Note Provider Name and Address Organization Details Recorded Time 641224 Robaxin medicatio n Not available Not available Not available 06/14/2016201395 5 RxNorm Comme nt: Creat ed By: Evelyn palacios;Cr eated Date: 014 11:13 :17 AM; Not Available [facility] 6 13:39:43 948735 amoxicill in medicatio n Not available Not available Not available 09/12/2017 723 RxNorm Arlen duran [facility] 8 08:45:10 334423 Product containin g penicilli n (product) medicatio n Not available Not available Not available 12/14/2021 78994 8001 SNOMED Anna Sparks [facility] 2 09:17:41 Medications Name Sig Start [...] as needed by oral route. 2022 active [facility]: 0904-588 0-61 Not Available Not [...] Updated DateTime 08/02/2023 152.4 cm 16.8 kg/m2 28044.94 g [facility] 08/02/2023 14:56:34 Date Recorded Body weight Oxygen saturation Oxygen saturation in Arterial blood by Pulse oximetry Heart rate Systolic And Diastolic Provider Name and Address Organization Details Last Updated DateTime 3 33297.6 1 g 97 % 97 % 92 /min 122/72 mm[Hg] Monica Hutson [facility] 3 14:19:47 Date Recorded Body weight Heart rate Oxygen saturation Oxygen saturation in Arterial blood by Pulse oximetry Systolic And Diastolic Provider Name and Address Organization Details Last Updated DateTime 5 21245.5 g 76 /min 96 % 96 % 122/76 mm[Hg] [facility] 5 13:55:40 Date Recorded Body height Body mass index (BMI) Body weight Systolic And Diastolic Provider Name and Address Organization Details Last Updated DateTime 11/26/2022 152.4 cm 17 kg/m2 26550.54 g 126/72 mm[Hg] Dianna Cruzholz [facility] 11/26/2022 09:59:39 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 Question Answer Notes LastModified by Organizat ion Details LastModified Time Tobacco Smoking Status Current Every Day [email or web address] 08/27/2016 09:04:27 Live Alone Or With Others? Alone Information not available 03/07/2017 Marital Status Informatio n not available 03/07/2017 What Was The Date Of Your Most Recent Tobacco Screening? 10/01/2022 [email or web address] Information not available 10/01/2022 How Much Tobacco Do You Smoke? 1 PPD Information not available 08/27/2016 Has Tobacco Cessation Counseling Been Provided? No [email or web address] Information not available 12/14/2021 How Many Years Have You Smoked Tobacco? 20 Information not available 08/27/2016 Sex: Unknown Functional Status Question Answer Note LastModified by Organizat ion Details LastModified Time What is your level of alcohol consumption? None [email or web address] Information not available 12/14/2021 What is your [...] available 08/27 09:04:22 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 Condition Response Migraines Y Osteoporosis/Osteopenia Y Arthritis Y Gynecological HistoryNo gynecological history recorded. Obstetrics History GPAL:G 0 P 0 0 0 0 Past Encounters Encounter ID Performer Location Encounter Start Date Encounter Closed Date Diagnosis/Indication Diagnosis SNOMED-CT Code Diagnosis ICD10 Code Diagnosis Note [id number] MADIE HOPPER MD NEUROLOGY [facility] [address] [place] [address] 07/17/2016 08:36:36 07/17/2016 10:23:18 Paresthesia 74352899 R20.2 Muscle weakness 10402325 M62.81 Muscle pain 62672012 M79 .1 Skin sensa tion disturbance 55026776 R20.9 [id number] JENNIFER COOPER MD NEUROSURG [facility] [address] [place] [address] 08/27/2016 08:40:38 08/27/2016 14:00:43 Cervical radiculopathy 69121920 M54.12 [id number] JENNIFER COOPER MD [facility]OSURG [facility] [address] [place] [address] 10/08/2016 10:02:12 10/08/2016 13:45:17 Cervical radiculopathy 36387714 M54.12 15 minutes spent reviewing images, discussing the diagnosis and coordinati ng care. [id number] MADIE HOPPER MD NEUROLOGY [facility] [address] [place] [address] 03/07/2017 08:17:12 03/07/2017 09:16:01 Cervicogenic headache 565582183 G44.89 Mrs. Mclean is a 61-year-ol d [...] than 50% time in counseling Muscle pain 39114457 M79 .1 -as above. Paresthesia 64545804 R20 .2 LLE, possibly from cervical cord compressio n; no low back pain, reflexes intact and brisk Pain in le ft lower limb 482419267 M79.605 pain and weakness LLE - as above [id number] MADIE HOPPER MD NEUROLOGY [facility] [address] [place] [address] 09/12/2017 08:33:47 09/12/2017 10:33:24 Paresthesia 50729382 R20.2 LLE, most likely from cervical cord compressio n; no low back pain, reflexes intact and brisk, weakness in upper motor neuron pattern Cervicogenic headache 27 6239380 G44.89 Mrs. Mclean is a 61-year-ol d [...] inue cyclobenza gloria 10 mg qhs-Contin ue EmJ20-Uoco me magnesium daily- She is interested in CBD oil. This may be helpful. I've provided literature .- if pain signficant worsens, she is to get back in with Dr. Cooper FU 12 month or sooner PRN Muscle pain 50814662 M79 .1 -as above. 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 Cervical myelopathy 2025 83977 G95.9 she has exam finding and symptoms suggestive of myelopathy - following with Dr. 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 Recent ER visit for BLE giving out, severe pain both legs and L arm. Suspect from cervical stenosis. - scheduled wtih Dr. Cooper Headache 88914009 R51 cervicogen ic -- f/u with Dr. Cooper Cervicogenic headache 27 5605765 G44.89 Mrs. Mclean is a 62-year-ol d [...] d she discuss SL CBD oil with [facility] FU 12 month or sooner PRN Muscle pain 25757598 M79 .12 -as above. Paresthesia 29774102 R20 .2 LLE, most likely from cervical cord compressio n; no low back pain, reflexes intact and brisk, weakness in upper motor neuron pattern Pain in le ft lower limb 206187562 M79.605 pain and weakness LLE - as above LUE/LLE paresthesi as, pain LLE Cervical myelopathy 2025 84439 G95.9 she has exam finding and symptoms suggestive of myelopathy - following with Dr. Kenneth on as needed basis 40 min appt with greater than 50% in counseling regarding probalbe cervical source of pain, weakness, importance of surgery if determined by Dr. Cooper Tobacco user 656473936 Z 72.0 She is still smoking 1PPD. Counseled that smoking contribute s to cervical spondylosi s, among so many other health risks including increased risk for heart attack, stroke and cancer. 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 Cervicogenic headache 27 1885247 G44.89 Mrs. Mclean is a 63-year-ol d [...] exercises. I showed her the products on [employer]. She is also now using CBD oil and it is helping. - Continue peppermint oil alternatin g with Biofreeze- Again counseled on concerns of ibuprofen, commended for cutting back; she is to avoid and limit to no more than 10 analgesics per month-Cont inue cyclobenza gloria 10 mg qhs-Contin ue CoQ10 and resume magnesium qhs- [facility] FU 12 month or sooner PRN Muscle pain 33497894 M79 .12 -as above. consider trigger point injections Cervical myelopathy 2025 00346 G95.9 she has exam finding and symptoms suggestive of myelopathy - following with Dr. Cooper on as needed basis 30 min appt with greater than 50% in counseling regarding probable cervical source of pain, weakness Tobacco user 149317615 Z 72.0 She is still smoking 1PPD. Counseled that smoking contribute s to cervical spondylosi s, among so many other health risks including increased risk for heart attack, stroke and cancer. 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 - juan richard -- as above for headaches - stop smoking - continue vitamins, vit D, Ca and start a MVI Cervicogenic headache 27 8043636 G44.89 Mrs. Mclean is a 64-year-ol d [...] and resume reacted magnesium qhs - chin tucks/stre tches as demonstrat ed in clinic today [...] 12 min 2 min Rx Muscle pain 85580388 M79 .12 -as above. consider trigger point injections Cervical myelopathy 2025 31164 G95.9 she has exam finding and symptoms suggestive of myelopathy - following with Dr. Cooper on as needed basis Tobacco user 123246722 Z 72.0 She is still smoking 1PPD. Again counseled that smoking contribute s to cervical spondylosi s, among so many other health risks including increased risk for heart attack, stroke and cancer. [id number] ALEX ANTONY MD NEUROLOGY [facility] [address] [place] [address] 12/14/2021 08:18:29 12/14/2021 11:06:39 Migraine 32447344 G43.909 Neck pain 81861957 M54.2 [id number] ALEX ANTONY MD NEUROLOGY [facility] [address] [place] [address] 10/01/2022 14:03:41 10/01/2022 14:53:27 Spinal stenosis in cervical region 10440911 M48.02 Spinal cord disease 4852 2002 G95.9 Lumbar radiculopathy 128 808674 M54.16 [id number] JENNIFER COOPER MD [facility]OSURG [facility] [address] [place] [address] 11/26/2022 09:39:10 11/27/2022 04:45:38 Lumbar radiculopathy 403740517 M54.16 [id number] ALEX ANTONY MD NEUROLOGY [facility] [address] [place] [address] 08/02/2023 14:54:56 08/19/2023 04:24:09 Pain in left lower limb 724706516 M79.605 [id number] ALEX ANTONY MD NEUROLOGY [facility] [address] [place] [address] 08/23/2023 12:43:25 08/24/2023 04:25:39 Lumbar radiculopathy 146148105 M54.16 Paresthesi a of lower extremity 039684293 R20.2 [id number] ALEX ANTONY MD NEUROLOGY [facility] [address] [place] [address] 10/28/2024 13:27:09 10/29/2024 04:12:25 Neck pain 71235849 M54.2 Lumbar radiculopathy 128 881945 M54.16 Health Concerns Section Related Observation LastModified by Organization Detai ls LastModified Time None Recorded Concern Status LastModified by Organization Details LastModified Time None Recorded Advance Directives Directive None Recorded Payers Insurance Date Sequence Insurance Name Policy Number Policy Evangelista Covered Member ID Evangelista Member ID Guarantor Name 06/15/2020 1 [place] [id number] Brisa R Vinay [id number] Brisa R Vinay 10/25/2024 1 [place]MEDICARE REPLACEMENT REGIONAL PPO) [id number] Brisa R Vinay [id number] Brisa R Vinay 12/14/2021 1 [place] [id number] Brisa R Vinay [id number] Brisa R Vinay Notes Date Note [...] 2019 but not done. ALEX ANTONY MD [address] [place] [address], [phone], [facility] 10/01/2022 18:40:30 11/26/2022 text/html Mrs. Mclean [...] MRI of the lumbar spine performed at [facility] on October 19, 2022. JENNIFER COOPER MD [address] [place] [address], [phone], [facility] 11/26/2022 10:21:03 08/02/2023 text/html Visit today is b anthony conducted via telehealth using both audio/video. The patient confirms that he/she is physically located in [place] at the time of this visit. Patient [...] and the latter pursued. ALEX ANTONY MD [address] [place] [address] [place], [address], [facility] 08/18/2023 16:51:26 10/28/2024 text/html She was [...] she has no bone densitywas on reclast. [place], [address], [facility] 10/28/2024 18:01:59 OBGyn Episode No OBEpisode recorded.
--- OUTSIDE RECORDS SUMMARY | 2025-01-30 11:29 | XMS_ITS | Encounter Summary ---
Author Organization [employer] ([place], [place], [place], [place]) Address [address] [place] [address] Care Team Providers Care Home Visitor Name Role Phone Loy Cruz MD Primary Care Provider [phone] Encounter Details Date Type Department Care Team (Late st Contact Info) Description 10/06/2020 Transcribed Document [facility] [place] [facility] [place] [address] ProviderMarly MD [address] [place] [address] 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 Tobacco Use Types Packs/Day Years Used Date Smoking Tobacco: Never Assessed Comments Unknown Sex and Gender Information Value Date Recorded Sex Assigned at Not on file Legal Sex Female 3:39 PM CDT Gender Identity Not on file Sexual Orientation Not on file documented as of this encounter Miscellaneous Notes * Cerner Conversion Note - Marly Ramsay MD - 10/06/2020 4:36 PM CDT [address] [address] BRISA MCLEAN :1955 Visit Time:10/06/2020 Your Visit Summary Your Care Team Admitting Physician - KINZA BRENNER MD-OBG Attending Physician - KINZA BRENNER MD-OBG Primary Care Physician - VINITA HARDIN (REF), -[facility] Referring Physician - KINZA BRENNER MD-OBG Your Diagnosis Age-related osteoporosis without current pathological fracture, Age-related osteoporosis without current pathological fracture Asymptomatic menopausal state Discharge Vitals Temperature 36 ??C Respiratory Rate 20 Blood Pressure 124/84 What to do next Instructions From Your Care Team Drink 8 oz of fluid every hour you are awake for 48 hours.. Take calcium 1200mg (600mg in the morning and 600mg at night ), and vitamin d for at least the next 2 weeks Medications What How Much When Instructions Next Dose omeprazole 40 Milligram(s) Oral Every Day as needed for Indigestion albuterol (Albuterol (Eqv-ProAir HFA) 90 mcg/ inh inhalation aerosol) 1 Puff(s) Inhalation Every 6 Hours as needed for as needed budesonide (Entocort EC) 3 Milligram(s) Oral Every Day cholecalciferol (Vitamin D3) 4000iu Oral Every Day cyanocobalamin (Vitamin B12) Oral Every Day cyclobenzaprine (Flexeril) 10 Milligram(s) Oral At Bedtime ibuprofen As needed for as needed for pain ubiquinone (CoQ10) 400 Milligram(s) Oral Every Day Take your medications faithfully. Do NOT skip medication. Do NOT stop taking medications without the direction of a physician. Carry a list of your medications with you at all times, and take this medication list with you to your first follow up visit. Report any side effects. Avoid herbal remedies unless discussed with your physician. As part of your treatment plan, your physician may have prescribed a limited course of a controlled substance. This medication may be given to help people with moderate or severe pain or for other medical conditions, but there are risks involved with treatment. Common side effects may include nausea, constipation, drowsiness, sweating, itching, dry mouth, and rash. More serious side effects may include cognitive and motor impairment, like problems with thinking, concentrating, alertness, and movement (e.g. slowed reflexes), and driving and operating heavy machinery can be dangerous. It is important for you to talk to your physician if you have these side effects or questions. These controlled substances can produce physical dependence and be habit-forming if taken for an extended period of time, which means that the body has gotten used to them and may experience withdrawal symptoms if they are abruptly stopped. Withdrawal symptoms can include runny nose, sweating, goose bumps, diarrhea, abdominal cramping, rapid heartbeat, difficulty sleeping, and nervousness. Please dispose of unused and medications per your retail pharmacy guidance. Allergies Eggs (Burning) Robaxin (Hives) Vistaril IM (Low blood pressure) Immunizations This Visit No Immunizations Found Education Materials zoledronic acid (HERMAN Alvarez ik id) Reclast, Zometa What is the most important information I should know about zoledronic acid? Zoledronic acid may harm an unborn baby. Avoid getting while using this medicine and tell your doctor if you become . Zoledronic acid can cause serious kidney problems, especially if you are dehydrated, if you take diuretic medicine, or if you already have kidney disease. Call your doctor if you urinate less than usual, if you have swelling in your feet or ankles, or if you feel tired or short of breath. Also call your doctor if you have muscle spasms, numbness or tingling (in hands and feet or around the mouth), new or unusual hip pain, or severe pain in your joints, bones, or muscles. What is zoledronic acid? Reclast and Zometa are two different brands of zoledronic acid. Reclast is used to treat or prevent osteoporosis caused by menopause, or steroid use. This medicine also increases bone mass in men with osteoporosis. Reclast is for use when you have a high risk of bone fracture. Reclast is also used to treat Paget's disease of bone. Zometa is used to treat high blood levels of calcium caused by cancer (also called hypercalcemia of malignancy). This medicine also treats multiple myeloma (a type of bone marrow cancer) or bone cancer that has spread from elsewhere in the body. You should not use Reclast and Zometa at the same time. Zoledronic acid may also be used for purposes not listed in this medication guide. What should I discuss with my healthcare provider before receiving zoledronic acid? You should not be treated with zoledronic acid if you are allergic to it. You also should not receive Reclast if you have: ?? low levels of calcium in your blood (hypocalcemia); or ?? severe kidney disease. You should not be treated with zoledronic acid if are currently using any other bisphosphonate (such as alendronate, etidronate, ibandronate, pamidronate, risedronate, or tiludronate). Tell your doctor if you have ever had: ?? kidney disease; ?? hypocalcemia; ?? thyroid or parathyroid surgery; ?? surgery to remove part of your intestine; ?? asthma caused by taking aspirin; ?? any condition that makes it hard for your body to absorb nutrients from food (malabsorption); ?? a dental problem (you may need a dental exam before you receive zoledronic acid); ?? if you are dehydrated; or ?? if you take a diuretic or 'water pill'. Zoledronic acid can cause serious kidney problems, especially if you are dehydrated, if you take diuretic medicine, or if you already have kidney disease. This medicine may cause jaw bone problems (osteonecrosis). The risk is highest in people with cancer, blood cell disorders, pre-existing dental problems, or people treated with steroids, chemotherapy, or radiation. Ask your doctor about your own risk. Zoledronic acid may harm an unborn baby. Use effective control to prevent , and tell your doctor if you become . You may need to have a negative test before starting this treatment. You should not breastfeed while using zoledronic acid. How is zoledronic acid given? Zoledronic acid is given as an infusion into a vein. A healthcare provider will give you this injection. Zoledronic acid is sometimes given as a single dose only one time. It may also be given once every 1 or 2 years. How often you receive zoledronic acid will depend on why you are using this medicine. Follow your doctor's instructions. Drink at least 2 glasses of water within a few hours before your injection to keep from getting dehydrated. You may need frequent medical tests to help your doctor determine how long to treat you with zoledronic acid. Your kidney function may also need to be checked. Pay special attention to your dental hygiene while using zoledronic acid. [place] and floss your teeth regularly. If you need to have any dental work (especially surgery), tell the dentist ahead of time that you are using zoledronic acid. Zoledronic acid is only part of a complete program of treatment that may also include diet changes and taking calcium and vitamin supplements. Follow your doctor's instructions very closely. Your doctor will determine how long to treat you with this medicine. Zoledronic acid is often given for only 3 to 5 years. What happens if I miss a dose? Call your doctor for instructions if you miss an appointment for your zoledronic acid injection. What happens if I overdose? Seek emergency medical attention or call the Poison Help line at . What should I avoid while receiving zoledronic acid? Avoid smoking, or try to quit. Smoking can reduce your bone mineral density, making fractures more likely. Avoid drinking large amounts of alcohol. Heavy drinking can also cause bone loss. What are the possible side effects of zoledronic acid? Get emergency medical help if you have signs of an allergic reaction: hives; wheezing, chest tightness, trouble breathing; swelling of your face, lips, tongue, or throat. Call your doctor at once if you have: ?? new or unusual pain in your thigh or hip; ?? jaw pain or numbness, red or swollen gums, loose teeth, or slow healing after dental work; ?? severe joint, bone, or muscle pain; ?? kidney problems--little or no urination, swelling in your feet or ankles, feeling tired; ?? low red blood cells (anemia)--pale skin, unusual tiredness, feeling light-headed or short of breath, cold hands and feet; or ?? low calcium levels--muscle spasms or contractions, numbness or tingly feeling (around your mouth, or in your fingers and toes). Serious side effects on the kidneys may be more likely in older adults. Common side effects may include: ?? trouble breathing; ?? nausea, vomiting, diarrhea, constipation; ?? bone pain, muscle or joint pain; ?? fever or other flu symptoms; ?? tiredness; ?? eye pain or swelling; ?? pain in your arms or legs; ?? headache; or ?? anemia. This is not a complete list of side effects and others may occur. Call your doctor for medical advice about side effects. You may report side effects to FDA at 3-414-RIV-8149. What other drugs will affect zoledronic acid? Zoledronic acid can harm your kidneys, especially if you also use certain medicines for infections, cancer, osteoporosis, organ transplant rejection, bowel disorders, or pain or arthritis (including aspirin, Tylenol, Advil, and Aleve). Other drugs may affect zoledronic acid, including prescription and hkln-lih-orkuovr medicines, vitamins, and herbal products. Tell your doctor about all your current medicines and any medicine you start or stop using. Where can I get more information? Your doctor or pharmacist can provide more information about zoledronic acid. Remember, keep this and all other medicines out of the reach of children, never share your medicines with others, and use this medication only for the indication prescribed. Every effort has been made to ensure that the information provided by [employer]') is accurate, up-to-date, and complete, but no guarantee is made to that effect. Drug information contained herein may be time sensitive. [employer] information has been compiled for use by healthcare practitioners and consumers in the [place] and therefore [employer] does not warrant that uses outside of the [place] are appropriate, unless specifically indicated otherwise. [employer] drug information does not endorse drugs, diagnose patients or recommend therapy. [employer] drug information is an informational resource designed to assist licensed healthcare practitioners in caring for their patients and/or to serve consumers viewing this service as a supplement to, and not a substitute for, the expertise, skill, knowledge and judgment of healthcare practitioners. The absence of a warning for a given drug or drug combination in no way should be construed to indicate that the drug or drug combination is safe, effective or appropriate for any given patient. [employer] does not assume any responsibility for any aspect of healthcare administered with the aid of information [employer] provides. The information contained herein is not intended to cover all possible uses, directions, precautions, warnings, drug interactions, allergic reactions, or adverse effects. If you have questions about the drugs you are taking, check with your doctor, nurse or pharmacist. Copyright 0803-5490 [employer]. Version: 17.. Revision Date: 01/20/2020. calcium carbonate (YOMI macedo) What is the most important information I should know about calcium carbonate? Follow all directions on your medicine label and package. Tell each of your healthcare providers about all your medical conditions, allergies, and all medicines you use. What is calcium carbonate? Calcium is a mineral that is found naturally in foods. Calcium is necessary for many normal functions of the body, especially bone formation and maintenance. Calcium carbonate is used to prevent or to treat a calcium deficiency. There are many brands and forms of calcium carbonate available. Not all brands are listed on this leaflet. Calcium carbonate may also be used for purposes not listed in this medication guide. What should I discuss with my healthcare provider before taking calcium carbonate? Ask a doctor or pharmacist if it is safe for you to take this medicine if you have ever had: ?? kidney disease; ?? kidney stones; ?? cancer; ?? a parathyroid gland disorder; or ?? high levels of calcium in your blood. Ask a doctor before using calcium carbonate if you are or breast-feeding. Your dose needs may be different during or while you are nursing. How should I take calcium carbonate? Use exactly as directed on the label, or as prescribed by your doctor. Do not use in larger or smaller amounts or for longer than recommended. Check the label of your calcium carbonate product to see if it should be taken with or without food. Swallow the calcium carbonate regular tablet with a full glass of water. The chewable tablet should be chewed before you swallow it. Shake the oral suspension (liquid) well just before you measure a dose. Measure liquid medicine with the dosing syringe provided, or with a special dose-measuring spoon or medicine cup. If you do not have a dose-measuring device, ask your pharmacist for one. Use the calcium carbonate powder as directed. Allow the powder to dissolve completely, then consume the mixture. Calcium carbonate may be only part of a complete program of treatment that also includes dietary changes. Learn about the foods that contain calcium. Your calcium carbonate dose may need to be adjusted as you make changes to your diet. Follow your doctor's instructions very closely. Store at room temperature away from moisture and heat. Do not freeze. What happens if I miss a dose? Take the missed dose as soon as you remember. Skip the missed dose if it is almost time for your next scheduled dose. Do not take extra medicine to make up the missed dose. What happens if I overdose? Seek emergency medical attention or call the Poison Help line at . What should I avoid while taking calcium carbonate? Ask a doctor or pharmacist before taking any multivitamins, mineral supplements, or antacids while you are taking calcium carbonate. What are the possible side effects of calcium carbonate? Get emergency medical help if you have signs of an allergic reaction: hives; difficulty breathing; swelling of your face, lips, tongue, or throat. Call your doctor at once if you have: ?? little or no urinating; ?? swelling, rapid weight gain; or ?? high levels of calcium in your blood--nausea, vomiting, constipation, increased thirst or urination, muscle weakness, bone pain, confusion, lack of energy, or feeling tired. Common side effects may include: ?? upset stomach, gas; or ?? constipation. This is not a complete list of side effects and others may occur. Call your doctor for medical advice about side effects. You may report side effects to FDA at 8-502-BTG-0281. What other drugs can affect calcium carbonate? Calcium can make it harder for your body to absorb certain medicines. If you take other medications, take them at least 2 hours before or 4 or 6 hours after you take calcium carbonate. Other drugs may interact with calcium carbonate, including prescription and blwt-tng-tmjcrrk medicines, vitamins, and herbal products. Tell your doctor about all your current medicines and any medicine you start or stop using. Where can I get more information? Your doctor or pharmacist can provide more information about calcium carbonate. Remember, keep this and all other medicines out of the reach of children, never share your medicines with others, and use this medication only for the indication prescribed. Every effort has been made to ensure that the information provided by [employer] ('[employer]') is accurate, up-to-date, and complete, but no guarantee is made to that effect. Drug information contained herein may be time sensitive. [employer] information has been compiled for use by healthcare practitioners and consumers in the [place] and therefore [employer] does not warrant that uses outside of the [place] are appropriate, unless specifically indicated otherwise. [employer] drug information does not endorse drugs, diagnose patients or recommend therapy. [employer] drug information is an informational resource designed to assist licensed healthcare practitioners in caring for their patients and/or to serve consumers viewing this service as a supplement to, and not a substitute for, the expertise, skill, knowledge and judgment of healthcare practitioners. The absence of a warning for a given drug or drug combination in no way should be construed to indicate that the drug or drug combination is safe, effective or appropriate for any given patient. [employer] does not assume any responsibility for any aspect of healthcare administered with the aid of information [employer] provides. The information contained herein is not intended to cover all possible uses, directions, precautions, warnings, drug interactions, allergic reactions, or adverse effects. If you have questions about the drugs you are taking, check with your doctor, nurse or pharmacist. Copyright 6246-1982 [employer]. Version: 7.01. Revision Date: 07/03/2017. Emergency Awareness and Preventative Care STROKE is an EMERGENCY Every Minute Counts Act FAST and Check for these signs: FACE Does the face look uneven? ARM Does one arm drift down? SPEECH Does their speech sound strange? TIME Call at any sign of stroke Stroke Risk Factors Atrial Fibrillation (irregular heartbeat) Diabetes Family history of stroke Heart Disease Heavy alcohol use High Blood Pressure High Cholesterol Physical inactivity and obesity Smoking Cigarette Smoking The facts are clear, cigarette smoking will shorten your life. Smoking can cause many illnesses along the way. As a healthcare provider, we recommend that you stop smoking. Assistance with quitting is available by contacting 6-508-[employer]NOW. This is a free resource providing counseling, support, and referral. Or you may contact your personal physician. National Suicide Prevention Lifeline: The National Suicide Prevention Lifeline is a national network of local crisis centers that provides free and confidential emotional support to people in suicidal crisis or emotional distress 24 hours a day, 7 days a week. Don't Wait! Stop a Heart Attack Before it Starts What is a heart attack? A heart attack is damage or to a part of the heart from severely decreased or lack of blood flow to the heart. Over time, arteries can become narrow from the buildup of fat and cholesterol, which is called plaque. The plaque can rupture causing a blood clot to form. When the blood clot forms, the artery can become severely narrowed or completely blocked, causing a heart attack. Heart attack is the leading cause of in the [place]. 85% of muscle damage occurs within the first 2 hours. Delay in the recognition of heart attack symptoms increases the chances of . Know the early symptoms of a heart attack: Nausea Feeling of fullness in chest Jaw Pain Pain that travels down one or both arms Fatigue/being tired Anxiety Back Pain Chest pressure, squeezing, or discomfort Shortness of breath Sweating, or a cold sweat Feeling of impending doom There are unusual signs of a heart attack, too! Women, the elderly, and diabetics may present with atypical symptoms: Fainting/dizziness Weakness Confusion Risk Factors for a Heart Attack Some heart disease risk factors, such as age and family history, cannot be changed. Others, like smoking and lack of exercise, can be changed. Smoking High Cholesterol High Blood Pressure Family History Obesity Age Gender (Males are at higher risk) Lack of Exercise Diabetes Diet Stress Excessive Alcohol Intake If you or someone you know is experiencing the signs and symptoms of a heart attack, DON???T DELAY. Call immediately and seek help. If someone collapses, perform CPR! Do not attempt to drive if you are having symptoms of heart attack. Hands-Only CPR Why Hands-Only CPR? Hands-Only CPR has been shown to be as effective as conventional CPR for cardiac arrests that occur outside of a hospital. Survival depends on immediately receiving CPR from someone nearby. How do you perform Hands-Only CPR? There are two easy steps: Call if you see a teen or adult collapse Push hard and fast in the center of the chest at a beat of 100 beats per minute. Save a life! 4 WAYS TO GET AHEAD OF SEPSIS SEPSIS is a MEDICAL EMERGENCY. Time matters! Infections put you and your family at risk for a life-threatening condition called sepsis. Sepsis is the body's extreme response to an infection. It is life-threatening, and without timely treatment, sepsis can rapidly lead to tissue damage, organ failure, and . Sepsis happens when an infection you already have-in your skin, lungs, urinary tract or somewhere else-triggers a chain reaction throughout your body. 1 PREVENT INFECTIONS Take good care of chronic conditions. Talk to your doctor about getting the recommended vaccines. 2 PRACTICE GOOD HYGIENE Wash your hands frequently. Keep cuts or open sores clean and covered until they are healed. 3 KNOW THE SYMPTOMS Confusion or disorientation Shortness of breath High heart rate Fever, shivering, or feeling very cold Extreme pain or discomfort Clammy or sweaty skin 4 ACT FAST Get medical care IMMEDIATELY if you suspect sepsis or if you have an infection that is not getting better or is getting worse. To learn more about sepsis and how to prevent infections, visit www.cdc.gov/sepsis. Test Results Laboratory or Other Results This Visit (last charted value for your 10/06/2020 visit) General Chemistry 10/06/2020 4:15 PM Creatinine Level: 0.83 mg/dL -- Normal range between ( 0.55 and 1.02 ) Calcium Level: 9.2 mg/dL -- Normal range between ( 8.5 and 10.1 ) eGFR : >60 mL/min/1.73m2 eGFR NonAfrican: >60 mL/min/1.73m2 Patient Name:BRISA MCLEAN I have received and understand this information and was given the opportunity to ask questions. 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
--- OUTSIDE RECORDS SUMMARY | 2025-01-30 11:29 | XMS_ITS | Encounter Summary ---
Author Organization [facility] ([place], [place], [place], [place]) Address [address] [place] [address] Care Team Providers Care Reserve Officer Name Role Phone Loy Cruz MD Primary Care Provider [phone] Encounter Details Date Type Department Care Team (Late st Contact Info) Description 10/06/2020 Transcribed Document [facility] [place] Family Medicine [address] [place] [address] ProviderMarly MD [address] [place] [address] 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 Tobacco Use Types Packs/Day Years Used Date Smoking Tobacco: Never Assessed Comments Unknown Sex and Gender Information Value Date Recorded Sex Assigned at Not on file Legal Sex Female 3:39 PM CDT Gender Identity Not on file Sexual Orientation Not on file documented as of this encounter Miscellaneous Notes * Cerner Conversion Note - Marly Ramsay MD - 10/06/2020 5:45 PM CDT Nursing Discharge Summary Entered On: 10/06/2020 17:46 EDT Performed On: 10/06/2020 17:45 EDT by EMA STYLES RN Discharge Documentation Discharge Date/Time : 10/06/2020 17:45 EDT Patient Disposition, General : Discharge Discharge To : Home with ambulatory/outpatient follow-up Mode Of Departure, General Discharge : Ambulatory Accompanied By, Discharge : Unaccompanied IV Discontinued : Yes Personal Belongings With Patient : Yes Discharge Instructions Reviewed With, Opportunity For Questions Given : Patient Patient Education Completed : Yes Teaching Method : Explanation Teaching Evaluation : Verbalizes understanding EMA STYLES RN - 10/06/2020 17:46 EDT documented in this encounter Plan of Treatment Not on file documented as of this encounter Visit Diagnoses Not on filedocumented in this encounter Care Teams Reserve Officer Relationship Specialty Start Date End Date Loy Cruz MD [address] [place] [address] PCP - General Family Medicine 04/18/23 documented as of this encounter
[2025-01-30 11:36] LABS: Microscopic, Urine URINE MICROSCOPIC (MICROSCOPIC)
[2025-01-30 11:37] LABS: Bilirubin,Urine Negative (Negative); Color,Urine YELLOW (Yellow); Glucose,Urine (UA) Negative (Negative); Ketones,Urine Negative (Negative); Leukocyte Esterase,Urine 1+ (Negative); PH,Urine 5.5 (5.0-8.5); Protein,Urine Negative (Negative); Specific Gravity, Urine >= 1.030 (1.005-1.030); Urobilinogen,Urine 0.2 EU/dl (0.2)
[2025-01-30 11:41] VITALS: PULSE 88; RESP 19; O2SAT 98
--- NOTE | 2025-01-30 11:49 | CT_ITS ---
PROCEDURE INFORMATION: Exam: CT Lumbar Spine Without Contrast Exam date and time: 01/30/2025 12:06 PM Age: 69 years old Clinical indication: Low back pain; Additional info: L sided low back/flank pain TECHNIQUE: Imaging protocol: Computed tomography of the lumbar spine without contrast. Radiation optimization: All CT scans at this facility use at least one of these dose optimization techniques: automated exposure control; mA and/or kV adjustment per patient size (includes targeted exams where dose is matched to clinical indication); or iterative reconstruction. COMPARISON: 1. CT LUMBAR SPINE WO CON 10/06/2022 10:[address] ABDOMEN PELVIS W CON 08/02/2024 11:34 PM FINDINGS: Bones/joints: There is a 6 degree levoconvex curvature of the lumbar spine centered at L3. Vertebral body heights are preserved. The bones are osteopenic. There is a 5 mm grade 1 L5-S1 spondylolisthesis. Spondylosis is noted with disc bulging, facet arthropathy, ligamentous thickening causing canal narrowing most significant at L4-L5 where there is moderate to severe stenosis and neural foraminal stenosis most severe at L4-L5 and L5-S1 on the left. Vasculature: Incidental note is made of 3.2 cm maximum short axis dimension infrarenal abdominal aortic aneurysm not significantly changed from the prior examination. Soft tissues: Unremarkable. IMPRESSION: Lumbar spondylosis, grade 1 lumbosacral spondylolisthesis. Osteopenia. 3.2 cm infrarenal abdominal aortic aneurysm should be followed serially with aortic ultrasound.
--- NOTE | 2025-01-30 11:49 | CT_ITS ---
PROCEDURE INFORMATION: Exam: CT Abdomen And Pelvis Without Contrast Exam date and time: 01/30/2025 12:04 PM Age: 69 years old Clinical indication: Abdominal pain; Additional info: L sided low back/flank pain TECHNIQUE: Imaging protocol: Computed tomography of the abdomen and pelvis without contrast. Radiation optimization: All CT scans at this facility use at least one of these dose optimization techniques: automated exposure control; mA and/or kV adjustment per patient size (includes targeted exams where dose is matched to clinical indication); or iterative reconstruction. COMPARISON: CT ABDOMEN PELVIS W CON 08/02/2024 11:34 PM FINDINGS: Lungs: Scans subsegmental atelectasis is noted at the lung bases. Liver: Disproportionate enlargement of the right hepatic lobe is a normal anatomic variant unchanged from the prior examination. Gallbladder and biliary ducts: The gallbladder is relatively contracted. Pancreas: Coarse calcification about the proximal pancreatic tail may relate to prior episodes of pancreatitis. Spleen: Calcified granulomas are noted in the spleen. Adrenal glands: Normal. No mass. Kidneys and ureters: The kidneys are normal in overall size general contour without hydronephrosis or nephrolithiasis. Stomach and bowel: There is no history of small bowel obstruction. The majority of the colon is contracted with stool noted in the cecum and ascending segments. Appendix: A normal appendix is identified in the low right pelvis. Intraperitoneal space: Unremarkable. No free air. No significant fluid collection. Vasculature: There is 3.2 cm short axis dimension intrarenal abdominal aortic aneurysm with mural atheromatous calcific plaque, not significant changed from the prior examination. Suggest periodic serial aortic ultrasound to follow. Lymph nodes: Unremarkable. No enlarged lymph nodes. Urinary bladder: The urinary bladder is contracted. Reproductive: Unremarkable as visualized. Bones/joints: The bones are osteopenic with degenerative change and grade 1 L5-S1 spondylolisthesis. Please correlate with report for CT of the lumbar spine for more complete description. Soft tissues: Unremarkable. Noncontrast technique limits assessment. IMPRESSION: Limited noncontrast study. No acute intra-abdominal process. No evidence for urolithiasis. Unchanged 3.2 cm infrarenal abdominal aortic aneurysm. Serial aortic ultrasound is suggested to follow, next examination in 6-12 months. Right-sided constipation. 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 Chronic pancreatitis.
[2025-01-30 11:53] LABS: Bacteria,Urine 1+ /lpf
[2025-01-30] MEDS: LIDOCAINE 5% TRANSDERMAL PATCH 1 EACH TD (11:54)
[2025-01-30] MEDS: KETOROLAC 30MG/ML VIAL 30 MG IM (11:55)
--- NOTE | 2025-01-30 12:00 | PC.NURSE ---
pt is going for CT at this time via wheelchair with chemical laboratory technician
--- NOTE | 2025-01-30 12:08 | PC.NURSE ---
pt back from CT at this time via wheelchair with echo technologist
--- NOTE | 2025-01-30 12:44 | ED_ITS ---
Discharge Plan Disposition Patient Disposition: Home, Self-Care Condition: Good Prescriptions Prescriptions: No Action cholecalciferol (vitamin D3) 25 mcg (1,000 unit) capsule 25 mcg PO DAILY aspirin [Adult Aspirin Regimen] 81 mg tablet,delayed release (DR/EC) 81 mg PO DAILY Qty: 30 5RF rosuvastatin [Crestor] 20 mg tablet 20 mg PO DAILY Qty: 30 2RF lisinopril 10 mg tablet 10 mg PO DAILY levofloxacin 500 mg tablet 500 mg PO DAILY 5 Days Qty: 5 0RF Anoro Ellipta 62.5-25 mcg/actuation blister with device 1 inh inhalation DAILY 90 Days Qty: 180 2RF budesonide 3 mg capsule,delayed,extend.release 6 mg PO DAILY cyclobenzaprine 10 mg tablet 10 mg PO HS albuterol sulfate 90 mcg/actuation HFA aerosol inhaler 2 puff INHALATION Q6 Patient Comments: INHALE TWO PUFFS BY MOUTH EVERY 6 HOURS NEEDED FOR SHORTNESS OF BREATH OR wheezing Referrals Follow up/Referrals: Loy Cruz MD [Primary Care Provider, Family Practice] - See instructions Activity Restrictions/Add. Instructions Additional Instructions/Restrictions: You were evaluated in the emergency department today. You are found to have an aortic aneurysm on CT scan, for which I recommend monitoring on an outpatient basis with your primary care provider. There is nothing that needs to be done about this right now, they will just monitor it to make sure that it does not get bigger. We feel your back pain is likely related to compression of the nerve in your lower back radiating down your left leg. Please take Tylenol and ibuprofen every 4-6 hours at home as needed for pain. geophysical support specialist [id number] lidocaine patches and use as well if you find that these help. Follow-up closely with your primary care provider for reassessment over the next 72 hours. Return to the emergency department for new or worsening symptoms. Clinical Impressions Clinical Impression: Lumbar back pain with radiculopathy affecting lower extremity, Anterolisthesis of lumbar spine, AAA (abdominal aortic aneurysm) Stand Alone Forms Stand Alone Forms: Work/School Release Instructions Patient Instructions: DI for Low Back Pain, DI for Back Pain With Sciatica, DI for Lumbar Radiculopathy Print Language Print Language: Slovak Discharge ED Provider: Krystal Tunrer General Adult HPI General Chief complaint: Back Pain/Injury Stated complaint: back pain-history of herniated disc Time Seen by Provider: 01/30/25 11:40 Mode of Arrival: Ambulatory Source of Information: Patient Description of Symptoms (Recalled from ER Triage Doc. by RN): Patient states she has been having lower back pain since Saturday01/25/25 that is worse on the left side and radiating down her left leg all the way down into her foot. Patient states she has not seen PCP, has been taking Ibuprofen and using lidocaine patch. Last took Ibuprofen (400 mg) at 0700 this morning. History of Present Illness HPI narrative: This patient is a 69-year-old female with history of chronic back pain and disc herniation in the past as well as COPD presenting with concern for low back pain. Patient states that she has had low back pain since Saturday but it acutely got worse yesterday while she was at the store shopping. She notes that its mostly on the left side and radiates down her left leg to her foot. She denies any saddle anesthesia, urinary incontinence, urinary retention, changes in bowel movements, dysuria, urinary frequency urgency, fevers, or other concerns. She denies any recent falls or injury. Pain is relieved by rest, gets worse when she gets up and gets walking around. Related Data Home Medications ?Medication ?Instructions ?Recorded ?Confirmed albuterol sulfate 90 mcg/actuation 2 puff inhalation Q 6 wheezing 08/03/24 01/26/25 aerosol inhaler cholecalciferol (vitamin D3) 25 25 mcg PO DAILY 01/26/25 mcg (1,000 unit) capsule budesonide 3 mg 6 mg PO DAILY 12/08/2401/26 capsule,delayed,extended release cyclobenzaprine 10 mg tablet 10 mg PO HS 12/08/2403/15 lisinopril 10 mg tablet 10 mg PO DAILY 01/12/2503/15 Previous Rx's ?Medication ?Instructions ?Recorded umeclidinium 62.5 mcg-vilanterol 1 inh inhalation ROSE Y 90 days 09/28/24 25 mcg/actuation powdr for #180 ea inhalation (Anoro Ellipta) aspirin 81 mg tablet,delayed 81 mg PO DAILY #30 tabs 0 12/31/24 release (Adult Aspirin Regimen) rosuvastatin 20 mg tablet (Crestor) 20 mg PO DAILY #30 tabs 12/31/24 levofloxacin 500 mg tablet 500 mg PO DAILY 5 days #5 t abs 01/15/25 Allergies Allergy/AdvReac Type Severity Reaction Status Date / Time Sulfa (Sulfonamide Allergy Mild rash Verified 01/26/25 08:50 Antibiotics) methocarbamol (From Robaxin) Allergy Unknown Verified 01/26/25 08:50 allergy reaction Penicillins Allergy Unknown Verified 01/26/25 08:50 allergy reaction PFSH [facility] Disclaimer: The information contained in this section may have been updated after the patient was seen, as this information can be updated by other users. 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 Other chest pain Other forms of dyspnea Essential hypertension Dyspnea on exertion History of smoking 30 or more pack years Pulmonary emphysema Tick bite Vaccine counseling Encounter for screening for diabetes mellitus Screening cholesterol level Colon cancer screening Cervical cancer screening Breast cancer screening by mammogram Encounter for annual wellness visit (AWV) in Medicare patient Strep sore throat Otitis media of right ear Sinusitis Low back pain Muscle spasm Back pain Upper respiratory infection Acute viral syndrome Bronchitis Dyspnea Allergy to sulfa drugs Itching Migraine Otitis media Viral syndrome COPD exacerbation Exposure to COVID-19 virus Viral syndrome Syncope and collapse Abdominal pain Fatigue COPD exacerbation Chest pain Lumbar radiculopathy Viral upper respiratory illness Skin problem Surgical History Hx of fusion of cervical spine H/O tubal ligation Family History Father Coronary artery disease Mother Cancer Sister Cancer Sister Cancer Hypertension Son Hyperlipidemia 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 Smoking Status: Never smoker years smoked: 30 alcohol intake: never current occupational status: retired Travel in the last 8 weeks?: None caffeine: Yes Have you lived/traveled outside [place] in past 30 days?: No Contact w/someone who lives/traveled outside US past 30 days?: No Exposure to someone with infectious disease in past 14 days?: No Do you have a fever (greater than 100.4 F or 38 C)?: No Have you tested positive for COVID-19?: No Exposed to someone with COVID-19 in past 14 days?: No Do you have a sore throat?: No Do you have a cough?: No Do you have any weakness?: No Do you have any diarrhea?: No Are you experiencing any unusual bleeding?: No Do you have any muscle aches/pain?: No Do you have any abdominal pain?: No Are you experiencing loss of taste or smell?: No Other 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 Have you received the Flu Vaccine for this season: No Have you received the Pneumonia Vaccine: Yes ROS Obtained: Yes All systems reviewed & no additional complaints except as documented Physical Exam General General appearance: alert and in no apparent distress Head Head exam: atraumatic and normocephalic Eye Eye exam: Present normal appearance, PERRL and EOMI ENT ENT exam: Present normal exam, normal oropharynx, mucous membranes moist and normal external ear exam Neck Neck exam: Present normal inspection, full ROM and trachea midline; Absent tenderness Chest Chest inspection: Present normal inspection and symmetric chest wall rise; Absent tenderness Respiratory Respiratory exam: Present normal lung sounds bilaterally; Absent respiratory dis tress, wheezes, stridor or accessory muscle use Cardiovascular Cardiovascular exam: Present regular rate and normal rhythm Abdominal Exam Abdominal exam: Present soft; Absent distention, tenderness or guarding Extremities Exam Extremities exam: Present normal inspection, full ROM and normal capillary refill; Absent tenderness or edema Back Exam Back exam: Present normal inspection and full ROM; Absent tenderness Neurological Exam Neurological exam: Present alert, oriented X3, CN II-XII intact and normal gait; Absent motor sensory deficit Psychiatric Psychiatric exam: Present normal affect and normal mood Skin Skin exam: Present warm and dry Medical Decision Making Medical Records Medical records reviewed: Yes I reviewed the patient's medical records. Screening: Per USPSTF and CDC recommendations, given the prevalence of disease in our region, it is our hospital?s policy to screen for HIV and viral Hepatitis for all patients aged 18 and over and those with ongoing risk factors. [place] Inquiry Pt receiving controlled substance: No Vital Signs: 01/30/25 11:15 01/30/25 11:41 01/30/25 13:35 Temperature 98.1 F 98.7 F Temperature Source Oral Oral Pulse Rate 88 78 Pulse Rate [Right Brachial] 83 Respiratory Rate 17 19 19 Blood Pressure 130/79 Blood Pressure [Left Arm] 155/84 H Blood Pressure Mean [Left Arm] 107 Blood Pressure Source Automatic Cuff Blood Pressure Source [Left Arm] Automatic Cuff Blood Pressure Position Sitting Blood Pressure Position [Left Arm] Sitting 02 Sat by Pulse Oximetry 99 98 Oxygen Delivery Method Room Air Room Air Room Air Lab Data Lab results reviewed: Yes I reviewed the patient's lab results. Lab Results 01/30/25 11:15: Urine Color Yellow, Urine Appearance Clear, Urine pH 5.5, Ur Specific [place] >= 1.030, Urine Protein Negative, Urine Glucose (UA) Negative, Urine Ketones Negative, Urine Blood Negative, Urine Nitrate Negative, Urine Bilirubin Negative, Urine Urobilinogen 0.2, Ur Leukocyte Esterase 1+ A, Urine RBC None, Urine WBC 3-5, Ur Squamous Epith Cells 3-5, Urine Bacteria 1+ Orders (Tests/Meds): ED MEDICATIONS Discontinued Medications Generic Name Dose Route Start Last Admin Trade Name Freq PRN Reason Stop Dose Admin Ketorolac Tromethamine 30 mg 01/30/25 11:49 01/30/25 11:55 Ketorolac 30mg/Ml Vial IM 01/30/25 11:50 30 mg ONCE ONE Administration Lidocaine 1 each 01/30/25 11:49 01/30/25 11:54 Lidocaine 5% Transdermal Patch TD 01/30/25 11:50 1 each ONCE ONE Administration ORDERS Category Date Time Status CT abdomen pelvis wo con Stat Cat Scan 01/30/25 11:[address] lumbar spine wo con Stat Cat Scan 01/30/25 11:49 Completed UA [Urinalysis and Microscopic] Stat Lab 01/30/25 11:15 Completed Urine Culture Stat Micro 01/30/25 11:15 Received Medical Decision Narrative: In summary, this patient is a 69-year-old female presenting to the [facility] for evaluation of low back pain radiating down her left leg. Differential diagnoses considered include but are not limited to lumbar radiculopathy, sciatica, disc herniation, spine fracture, ureterolithiasis, colitis. Ruling out the most morbid conditions drove assessment. It should be noted patient's history includes COPD and chronic back pain which may or may not be at goal therapy. This complicates all aspects of care by increasing patient's risk for morbidity. I reviewed patient's past medical records and noted prior evaluations by pulmonology for maintenance of health in the setting of COPD as well as prior evaluations by podiatry for Achilles tendinitis of her left lower extremity. On exam, the patient is sitting upright no acute distress. She is neurologically intact in the lower extremities with no alarm findings suggestive of spinal cord compression or cauda equina syndrome. She also has no fevers or infectious symptoms. Workup included urinalysis, CT lumbar spine, and CT abdomen pelvis without IV contrast. She was given IM Toradol and a topical Lidoderm patch for symptomatic treatment of pain. She declines Tylenol, as she states it never works. I independently interpreted CT scan prior to the radiologist read and noted anterolisthesis without acute fracture, AAA without rupture. Please see their read for final interpretation. Labs were obtained shira t demonstrated urine is positive for leukocyte esterase and 1+ bacteria, but is contaminated with squamous cells. She denies any urinary symptoms. Urine culture was sent and is pending, but deferring treatment at this time. On reassessment, the patient states that she did not have any improvement after the Toradol or Lidoderm patch but does not want other medications as Tylenol does not work, she is already tried muscle relaxers, and she does not want anything stronger or more sedating. She also does not want steroids because she states that they drive her eye pressure and blood pressure up. Overall, she has anterolisthesis and some degenerative changes in her spine as well as a stable AAA without rupture. I feel she is appropriate for discharge home with close PCP follow-up. I offered prescriptions for medications but she does not want to try any of those things. I then recommended PT and pain management follow-up. She was discharged with strict return precautions Critical Care Critical Care Time Critical Care Time: No
[2025-01-30 13:35] VITALS: BP 130/79; PULSE 78; RESP 19; TEMP 37.1; O2SAT 98
== END 2025-01-30 13:36 | disposition home or self-care (01) ==
PROVIDERS: Emergency Provider Emergency Medicine; PCP Family Medicine
DX: M54.16 Radiculopathy, lumbar region (principal); M43.16 Spondylolisthesis, lumbar region; I71.40 Abdominal aortic aneurysm, without rupture, unspecified
CPT/HCPCS: 72131; 74176; 81001; 87086; 96372; 99285; J1885

== ENCOUNTER 2025-02-12 13:47 | Outpatient (CLI) | payer MEDICARE, SELFPAY ==
--- OUTSIDE RECORDS SUMMARY | 2025-02-10 10:15 | XMS_ITS | Encounter Summary ---
Author Organization [facility] Address [address] [place] [address] Care Team Providers Care Code Machine Operator Name Role Phone Loy Cruz MD Primary Care Provider [phone] Reason for Referral * Consultation (Routine) - Authorized Specialty Diagnoses / Procedures Referred By Contac t Referred To Contact Diagnoses Atherosclerosis of wales coronary artery of wales heart without angina pectoris Hernandez Arzate MD [address] [place] [phone] Phone: tel: fax: Referral ID Status Reason Start Date Expiration Date V isits Requested Visits Authorized [id number] Authorized 02/10/2025 08/12/2026 1 1 Reason for Visit * Reason Comments New Patient * Consultation (Routine) - Closed Specialty Diagnoses / Procedures Referred By Contac t Referred To Contact Cardiology Diagnoses Atypical angina Nicole Lake, ORE GRADER [address] [facility] [address], [place] [address] Phone: tel: fax: Referral ID Status Reason Start Date Expiration Date V isits Requested Visits Authorized [id number] Closed Specialty Services Required 12/31/2024 07/02/2026 1 1 Encounter Details Date Type Department Care Team (Latest Contact Info) Description 02/10/2025 10:15 AM EDT Office Visit [facility] [address] [facility] [place] [address] Hernandez Arzate MD [address] [place] [phone] Atherosclerosis of wales coronary artery of wales heart without angina pectoris (Primary Dx) Social [...] Patient Brisa Mclean [address] [place] [address] Referring Provider Nicole Lake APRN PCP Loy Cruz MD Chief complaint: CAD/atypical chest pain SUBJECTIVE History of Present Illness Today Dr. Arzate and I saw Brisa Mclean, a 69 y.o. female at Counts include 234 beds at the [facility] [place] [facility] [place] for consultation of CAD/atypical chest pain at [...] Visit Diagnoses and Orders 1. Atherosclerosis of wales coronary artery of wales heart without angina pectoris Lipid panel, Lipid [...] who agrees with the plan. Nicole Lake, ORE GRADER, thank you for the consultation. Please do not hesitate to contact us with any questions. Jesika Goss, ORE GRADER [1] Patient Active Problem List Diagnosis Abdominal [...] Description 03/03/2025 3:30 PM EDT Office Visit [facility] [address] [place] [address] Rita Amezcua MD [address] [place] [address] 02/16/2026 10:00 AM EDT Office Visit [facility] [address] [place] [address] Hernandez Arzate MD [address] [place] [address] Scheduled Referrals Name Type Priority Associated Diagnoses Order Schedule Follow Up Cardiology Outpatient Referral Routine Atherosclerosis of wales coronary artery of wales heart without angina pectoris Expected: 02/10/2026, Expires: 08/13/2026 documented as of this encounter Procedures Procedure Name Priority Date/Time Associated Diagnosis Comments LIPID PROFILE, PLASMA Routine 02/10/2025 11:05 AM EDT Atherosclerosis of wales coronary artery of wales heart without angina pectoris documented in this encounter Results * Lipid panel (02/10/2025 11:05 AM EDT) Cholesterol, Plasma 172 <200 mg/dL 02/10/2025 12:10 PM EDT [facility] Comment: Cholesterol Reference Range (age >17 years): Desirable <200 mg/dL Borderline 200 to 239 mg/dL Undesirable >239 mg/dL HDL 75 >=50 mg/dL 02/10/2025 12:10 PM EDT [facility] Comment: HDL Cholesterol Reference Ranges (age >17 years): Female, acceptable > or = 50 mg/dL Male, acceptable > or = 40 mg/dL Triglycerides, Plasma 117 <150 mg/dL 02/10/2025 12:10 PM EDT [facility] Comment: Triglyceride Reference Range (age >17 years): Desirable: <150 mg/dL Borderline high: 150 to 199 mg/dL High: 200 to 499 mg/dL Very high: >499 mg/dL Increased risk of pancreatitis: >1000 mg/dL Cholesterol/HDL Ratio 2 02/10/2025 12:10 PM EDT [facility] LDL, Calculated 77 <100 mg/dL 12:10 PM EDT [facility] Comment: LDL Cholesterol Reference Range (age [...] 12 hours? No 02/10/2025 12:10 PM EDT [facility] Blood Venous blood specimen / Unknown Venipuncture / Unknown 02/10/2025 11:05 AM EDT 02/10/2025 11:26 AM EDT us Bela Goss ORE GRADER LAB BLOOD ORDERABLES Final Re sult [facility] [address] [place] [address] documented in this encounter Visit Diagnoses Diagnosis Atherosclerosis of wales coronary artery of wales heart without angina pectoris- Primary documented in this encounter Additional Health Concerns Assessment Noted Time PHQ-9 Depression Total Score: 0 02/11/20 25 10:29 AM EDT A fall risk assessment has been complete d for the patient 02/10/2025 10:29 AM EDT A Body Mass Index follow-up plan has been documented for the patient 02/10/2025 11:22 AM EDT documented as of this encounter Care Teams Code Machine Operator Relationship Specialty Start Date End Date Loy Cruz MD PCP - General 08/31/22 documented as of this encounter
[2025-02-12 15:32] LABS: Coronavirus 19, PCR Not Detected (NotDetected); Influenza A, PCR Not Detected (NotDetected); Influenza B, PCR Not Detected (NotDetected)
--- OUTSIDE RECORDS SUMMARY | 2025-02-15 13:50 | XMS_ITS | Encounter Summary ---
Author Organization [facility] Address [address] [place] [address] Care Team Providers Care Systems Analysis Manager Name Role Phone Loy Cruz MD Primary Care Provider [phone] Encounter Details Date Type Department Care Team (Late st Contact Info) Description 02/04/2025 Telephone [facility] [address] [place] [address] [place] [address] 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 Tobacco Use Types Packs/Day Years [...] EDT Patient Name: Brisa Mclean :1955 Date:02/04/20[facility] Referring Physician:Nicole Lkae Education/ Information provided: This Nurse Liaison spoke with Brisa Mclean prior to an appointment on 02/10/2025 Explained nurse liaison services offered through [facility]. Discussed appointment necessity, and subspecialty clinic the pt will be seeing. Patient verbalizes understanding. Patient denied any barriersto arriving to clinic visit. All questions answered. Provided patient with liaison contact information and encouraged patient to call with any questions, concerns or assistance needs. Will follow up with patient after appointment. Kaia Jean [facility] Nurse Liaison [phone] documented in this encounter Plan of Treatment Upcoming Encounters Date Type Department Care Team (Late st Contact Info) Description 03/03/2025 3:30 PM EDT Office Visit [facility] [address] [place] [address] Rita Amezcua MD [address] [place] [address] 02/16/2026 10:00 AM EDT Office Visit [facility] [place] [address] [place] [address] Hernandez Arzate MD [address] [place] [address] documented as of this encounter Visit Diagnoses Not on filedocumented in this encounter Additional Health Concerns Assessment Noted Time A Body Mass Index follow-up plan has been documented for the patient 04/07/2024 8:13 AM EDT documented as of this encounter Care Teams Systems Analysis Manager Relationship Specialty Start Date End Date Loy Cruz MD PCP - General 08/31/22 documented as of this encounter
--- OUTSIDE RECORDS SUMMARY | 2025-02-15 13:51 | XMS_ITS | Clinical Summary ---
Author Organization [facility] Address [address] [place] [place] [address] Care Team Providers Care Test Technician Name Role Phone Loy Cruz MD Primary Care Provider [phone] Allergies Active Allergy Reactions Criticality Noted Date [...] 12/05/2015 Overview (01/20/2025): From Automated Load;Provider: Madie Hpoper;Status: Active Headache 12/05/2015 Overview (01/20/2025): From Automated Load;Provider: Madie Hopper;Status: Active Neck pain 12/05/2015 Overview (01/20/2025): From Automated Load;Provider: Madie Hopper;Status: Active Collagenous colitis 10/16/2014 Vitamin D deficiency 10/16/2014 Encounters Date Type Department Care Team Description 02/11/2025 Telephone [facility] [address] [place] [address] Kaia Jean 02/10/2025 10:15 AM EDT Office Visit [facility] [address] [place] [address] Hernandez Arzate MD Atherosclerosis of council coronary artery of council heart without angina pectoris (Primary Dx) 02/10/2025 Travel 02/04/2025 Telephone [facility] [address] [place] [address] Kaia Jean from Last 3 Months Immunizations [...] Description 03/03/2025 3:30 PM EDT Office Visit [facility] [address] [place] [address] Rita Amezcua MD [address] [place] [address] 02/16/2026 10:00 AM EDT Office Visit [facility] [place] [address] [place] [address] Hernandez Arzate MD [address] [place] [address] Health Maintenance Due Date Last Done Comments [facility]-Hepatitis C Screening 1955 [facility]-Medicare Annual Wellness (AWV) 1955 [facility]-Infant/Child/Adol SDOH Screenings 1955 [facility]- SDOH Screenings 1974 [facility]-Adult SDOH Screenings 1974 CT Colonography 2001 Colonoscopy 2001 FIT-DNA 2001 FIT 2001 FOBT 2001 Sigmoidoscopy 2001 [facility]-Colorectal Cancer Screening 2001 [facility]-Zoster Vaccines (1 of 2) 2006 [facility]-Bone Density Scan 08/05/2020 08/05/2019 [id number] Vaccine ( season) 2024 05/31/2021, 10/26/2020, 09/28/2020 [...] Routine 02/10/2025 11:05 AM EDT Atherosclerosis of council coronary artery of council heart without angina pectoris MAMMOGRAPHY BREAST SCREENING TOMOSYNTHESIS BILATERAL Routine 11/10/2024 3:03 PM EDT Encounter for screening mammogram for malignant neoplasm of breast from Last 3 Months or Most Recently Relevant to Health Maintenance Results * Lipid panel (02/10/2025 11:05 AM EDT) Cholesterol, Plasma 172 <200 mg/dL 02/10/2025 12:10 PM EDT [facility] Comment: Cholesterol Reference Range (age >17 years): Desirable <200 mg/dL Borderline 200 to 239 mg/dL Undesirable >239 mg/dL HDL 75 >=50 mg/dL 02/10/2025 12:10 PM EDT [facility] Comment: HDL Cholesterol Reference Ranges (age >17 years): Female, acceptable > or = 50 mg/dL Male, acceptable > or = 40 mg/dL Triglycerides, Plasma 117 <150 mg/dL 02/10/2025 12:10 PM EDT [facility] Comment: Triglyceride Reference Range (age >17 years): Desirable: <150 mg/dL Borderline high: 150 to 199 mg/dL High: 200 to 499 mg/dL Very high: >499 mg/dL Increased risk of pancreatitis: >1000 mg/dL Cholesterol/HDL Ratio 2 02/10/2025 12:10 PM EDT [facility] LDL, Calculated 77 <100 mg/dL 12:10 PM EDT [facility] Comment: LDL Cholesterol Reference Range [...] 12 hours? No 02/10/2025 12:10 PM EDT [facility] Blood Venous blood specimen / Unknown Venipuncture / Unknown 02/10/2025 11:05 AM EDT 02/10/2025 11:26 AM EDT us Bela Goss APRN LAB BLOOD ORDERABLES Final Re sult [facility] [place] [address] * Mammography Breast Screening Tomosynthesis Bilateral (11/10/2024 [...] 07/24/2021 Mammography Breast Screening Tomosynthesis Bilateral at [facility] 08/31/2022 Mammography Breast Screening Tomosynthesis Bilateral at [facility] 09/26/2023 Mammography Breast Screening Tomosynthesis Bilateral at [facility] BREAST COMPOSITION: The breasts are heterogeneously dense, which may obscure small masses. FINDINGS: There are no suspicious masses, calcifications, or areas of architectural distortion. Loy Cruz MD IMG BI PROCEDURES Final Result from Last 3 Months or Most Recently Relevant to Health Maintenance Insurance [employer] MEDICARE Care Teams Test Technician Relationship Specialty Start Date End Date Loy Cruz MD PCP - General 08/31/22
--- OUTSIDE RECORDS SUMMARY | 2025-02-15 13:51 | XMS_ITS | Clinical Summary ---
Author Organization [facility] Address [address] [place] [address] Care Team Providers Care Superintendent Stations Name Role Phone Unavailable Primary Care Provider [...]
--- OUTSIDE RECORDS SUMMARY | 2025-02-15 13:51 | XMS_ITS | Encounter Summary ---
Author Organization Healthcare Address [address] [place] [address] Care Team Providers Care Javascript Software Engineer Name Role Phone Loy Cruz MD Primary Care Provider [phone] Encounter Details Date Type Department Care Team [...] Description 03/03/2025 3:30 PM EDT Office Visit [facility] [address] [place] [address] Rita Amezcua MD [address] [facility] [address] [place] [address] 02/16/2026 10:00 AM EDT Office Visit [facility] Luis [address] [facility] [place] [address] Hernandez Arzate MD [address] [place] [address] documented as of this encounter Visit Diagnoses [...] documented as of this encounter Care Teams Javascript Software Engineer Relationship Specialty Start Date End Date Loy Cruz MD PCP - General 08/31/22 documented as of this encounter
--- OUTSIDE RECORDS SUMMARY | 2025-02-15 13:51 | XMS_ITS | Encounter Summary ---
Author Organization [employer] ([place], [place], [place], [place]) Address [address] [place] [address] Care Team Providers Care Bowling Ball Weigher And Packer Name Role Phone Loy Cruz MD Primary Care Provider [phone] Encounter Details Date Type Department Care Team (Late st Contact Info) Description 10/06/2020 Transcribed Document [facility] [place] [address] [place] [address] ProviderMarly MD [address] [place] [address] 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 Tobacco Use Types [...] EMA STYLES RN - 10/06/2020 17:46 EDT Electronically signed by Marivel, Darell Conversion Quality Assurance Specialist Cerner at 11/07/2022 12:17 PM CDT documented in this encounter Plan of Treatment Not on file documented as of this encounter Visit Diagnoses Not on filedocumented in this encounter Care Teams Bowling Ball Weigher And Packer Relationship Specialty Start Date End Date Loy Cruz MD [address] [place] [address] PCP - General Family Medicine 04/18/23 documented as of this encounter
--- OUTSIDE RECORDS SUMMARY | 2025-02-15 13:51 | XMS_ITS | Encounter Summary ---
Author Organization [facility] Address [address] [place] [place] [address] Care Team Providers Care Packerhead Machine Operator Name Role Phone Loy Cruz MD Primary Care Provider [phone] Encounter Details Date Type Department Care Team (Late st Contact Info) Description 08/10/2024 Orders Only External Location [address] [place] [address] Provider, External 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 Tobacco Use Types [...] Encounters Date Type Department Care Team (Late Contact Info) Description 03/03/2025 3:30 PM EDT Office Visit [facility] [address] [place] [address] Rita Amezcua MD [address] [facility] [address] [place] [address] 02/16/2026 10:00 AM EDT Office Visit [facility] [place] Luis [address] [facility] [place] [address] Hernandez Arzate MD [address] [place] [address] documented as of this encounter Procedures Procedure [...] documented as of this encounter Care Teams Packerhead Machine Operator Relationship Specialty Start Date End Date Loy Cruz MD PCP - General 08/31/22 documented as of this encounter
--- OUTSIDE RECORDS SUMMARY | 2025-02-15 13:51 | XMS_ITS | Referral Summary ---
Author Organization [employer] ([place], [place], [place]) Address [address] [place] [address] Care Team Providers Care Manager Of Environmental Services Name Role Phone Loy Cruz MD Primary Care Provider [phone] Allergies Active Allergy Reactions Criticality Noted Date [...] Date Toño rded Speak language other than Uzbek at home Not on file 08/04/2023 Want [...] FACTORS: Estrogen deficiency, tobacco usage COMPARISON STUDY: [facility] 2017 FINDINGS: Bone densitometry was performed using a [employer] QDR series machine. Sites measured included the [...] FACTORS: Estrogen deficiency, tobacco usage COMPARISON STUDY: [facility] 2016 FINDINGS: Bone densitometry was performed using a [employer] QDR series machine. Sites measured included the [...] Recently Relevant to Health Maintenance Insurance [facility] MAP Care Teams Manager Of Environmental Services Relationship Specialty Start Date End Date Loy Cruz MD [address] [place] [address] PCP - General Family Medicine 04/18/23
--- OUTSIDE RECORDS SUMMARY | 2025-02-15 13:51 | XMS_ITS | Clinical Summary ---
Author Organization [employer] ([place], [place], [place], [place]) Address [address] [place] [address] Care Team Providers Care Manager Oracle Database Name Role Phone Loy Cruz MD Primary Care Provider [phone] Allergies Active Allergy Reactions Criticality Noted Date [...] Date Toño rded Speak language other than Marshallese at home Not on file 08/04/2023 Want [...] FACTORS: Estrogen deficiency, tobacco usage COMPARISON STUDY: [facility] 2016 FINDINGS: Bone densitometry was performed using a [employer] QDR series machine. Sites measured included the [...] FACTORS: Estrogen deficiency, tobacco usage COMPARISON STUDY: [facility] 2017 FINDINGS: Bone densitometry was performed using a [employer] QDR series machine. Sites measured included the [...] 2 years. Left hip Zeb Varela MD [facility] DXA ORDERABLES Final Result from Last 3 Months or Most Recently Relevant to Health Maintenance Insurance [facility] [employer] ACCESS PPO MAP Care Teams Manager Oracle Database Relationship Specialty Start Date End Date Loy Cruz MD [address] [place] [address] PCP - General Family Medicine 04/18/23
--- OUTSIDE RECORDS SUMMARY | 2025-02-15 13:51 | XMS_ITS | Encounter Summary ---
Author Organization [employer] ([place], [place], [place], [place]) Address [address] [place] [address] Care Team Providers Care Lay Out Worker Name Role Phone Loy Cruz MD Primary Care Provider [phone] Encounter Details Date Type Department Care Team (Late st Contact Info) Description 10/06/2020 Transcribed Document [facility] [place] [address] ProviderMarly MD [address] [place] [address] 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 Tobacco Use Types [...] Ramsay MD - 10/06/2020 4:36 PM CDT [address] [address] BRISA MCLEAN :1955 Visit Time:10/06/2020 Your Visit Summary Your Care Team Admitting Physician - KINZA BRENNER MD-OBG Attending Physician - KINZA BRENNER MD-OBG Primary Care Physician - VINITA HARDIN (REF), -[facility] Referring Physician - KINZA BRENNER MD-OBG [...] your dental hygiene while using zoledronic acid. [place] and floss your teeth regularly. If you [...] may report side effects to FDA at 9-393-CXU-9517. What other drugs will affect zoledronic acid? Zoledronic acid can harm your kidneys, especially if you also use certain medicines for infections, cancer, osteoporosis, organ transplant rejection, bowel disorders, or pain or arthritis (including aspirin, Tylenol, Advil, and Aleve). Other drugs may affect zoledronic acid, including prescription and bjry-evx-iduwyyt medicines, vitamins, and herbal products. Tell your [...] to ensure that the information provided by [employer] ('[employer]') is accurate, up-to-date, and complete, but no guarantee is made to that effect. Drug information contained herein may be time sensitive. [employer] information has been compiled for use by healthcare practitioners and consumers in the [place] and therefore [employer] does not warrant that uses outside of the [place] are appropriate, unless specifically indicated otherwise. [employer] drug information does not endorse drugs, diagnose patients or recommend therapy. [employer] drug information is an informational resource designed [...] effective or appropriate for any given patient. [employer] does not assume any responsibility for any aspect of healthcare administered with the aid of information [employer] provides. The information contained herein is not intended to cover all possible uses, directions, precautions, warnings, drug interactions, allergic reactions, or adverse effects. If you have questions about the drugs you are taking, check with your doctor, nurse or pharmacist. Copyright 8946-5145 [employer]. Version: 17.. Revision Date: 01/20/2020. calcium carbonate [...] may report side effects to FDA at 7-415-HCM-3042. What other drugs can affect calcium carbonate? Calcium can make it harder for your body to absorb certain medicines. If you take other medications, take them at least 2 hours before or 4 or 6 hours after you take calcium carbonate. Other drugs may interact with calcium carbonate, including prescription and xttn-hcu-gowehvh medicines, vitamins, and herbal products. Tell your [...] to ensure that the information provided by [employer]. ('Multum') is accurate, up-to-date, and complete, but no guarantee is made to that effect. Drug information contained herein may be time sensitive. [employer] information has been compiled for use by healthcare practitioners and consumers in the [place] and therefore [employer] does not warrant that uses outside of the [place] are appropriate, unless specifically indicated otherwise. [employer] drug information does not endorse drugs, diagnose patients or recommend therapy. [employer] drug information is an informational resource designed [...] effective or appropriate for any given patient. [employer] does not assume any responsibility for any aspect of healthcare administered with the aid of information [employer] provides. The information contained herein is not intended to cover all possible uses, directions, precautions, warnings, drug interactions, allergic reactions, or adverse effects. If you have questions about the drugs you are taking, check with your doctor, nurse or pharmacist. Copyright 5720-6380 [employer]. Version: 7.01. Revision Date: 07/03/2017. Emergency Awareness [...] Assistance with quitting is available by contacting 2-050-MVZNMESoftNOW. This is a free resource providing counseling, [...] was given the opportunity to ask questions. Patient/Ribbon Hanking Machine Operator Name: Patient/Ribbon Hanking Machine Operator Signature: Relationship to Patient: Clinician/Hospital Ribbon Hanking Machine Operator Signature: Date: Electronically signed by Marivel, [facility] Conversion Silk Screen Printer Cerner at 11/07/2022 11:56 AM CDT documented in this encounter Plan of Treatment Not on file documented as of this encounter Visit Diagnoses Not on filedocumented in this encounter Care Teams Lay Out Worker Relationship Specialty Start Date End Date Loy Cruz MD [address] [place] [address] PCP - General Family Medicine 04/18/23 documented as of this encounter
--- OUTSIDE RECORDS SUMMARY | 2025-02-15 13:51 | XMS_ITS | Encounter Summary ---
Author Organization [facility] Address [address] [place] [address] Care Team Providers Care Ribbon Inker Name Role Phone Loy Cruz MD Primary Care Provider [phone] Encounter Details Date Type Department Care Team (Late st Contact Info) Description 08/02/2024 Orders Only External Location [address] [place] [address] Provider, External 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 Tobacco [...] Description 03/03/2025 3:30 PM EDT Office Visit [facility] [address] [place] [address] Rita Amezcua MD [address] [facility] [address] [place] [address] 02/16/2026 10:00 AM EDT Office Visit [facility] [place] Luis [address] [facility] [place] [address] Hernandez Arzate MD [address] [place] [address] documented as of this encounter [...] documented as of this encounter Care Teams Ribbon Inker Relationship Specialty Start Date End Date Loy Cruz MD PCP - General 08/31/22 documented as of this encounter
--- OUTSIDE RECORDS SUMMARY | 2025-02-15 13:51 | XMS_ITS | Encounter Summary ---
Author Organization [employer] ([place], [place], [place], [place]) Address [address] [place] [address] Care Team Providers Care Instrumentation Technologist Name Role Phone Loy Cruz MD Primary Care Provider [phone] Encounter Details Date Type Department Care Team (Late st Contact Info) Description 10/06/2020 Transcribed Document [facility] Family Medicine [address] [place] [address] ProviderMarly MD [address] [place] [address] 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 Tobacco Use Types [...] Source : Chart Height Entry Format : [place] Height, Feet : 5 ft(Converted to: 152 cm, 60 Inch) Height, Inches : 0 Inch(Converted to: 0 ft 0 Inch, 0.00 cm) Clinical Height : 152.4 cm Weight Source : Standing scale Weight Entry Format : [place] Clinical Dosing Weight : 43.18 kg Weight, Pounds : 95 lb Body Surface Area (BSA) : 1.36 m2 Body Mass Index : 18.6 kg/m2 (LOW) [place] Body Weight : 45 kg JOSEFINA CORRIGAN [...] JOSEFINA CORRIGAN RN - 10/06/2020 16:03 EDT [place] Suicide Severity Rating Scale (C-SSRS) CSSRS Past [...] Scale Risk Level : 0-24 Low Risk [place] Fall Interventions : Adequate lighting, Call device [...] on filedocumented in this encounter Care Teams Instrumentation Technologist Relationship Specialty Start Date End Date Loy Cruz MD [address] [place] [address] PCP - General Family Medicine 04/18/23 documented as of this encounter
--- OUTSIDE RECORDS SUMMARY | 2025-02-15 13:51 | XMS_ITS | Encounter Summary ---
Author Organization [facility] Address [address] [place] [address] Care Team Providers Care Patrol Driver Name Role Phone Loy Cruz MD Primary Care Provider [phone] Encounter Details Date Type Department Care Team (Late st Contact Info) Description 02/11/2025 Telephone [facility] [place] Luis [address] [place] [address] [place] [address] 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 Tobacco Use Types Packs/Day Years [...] Seen: Cardiology/Dr. Arzate Future scheduling/testing needs: This [facility] Nurse Liaison left voicemail for Brisa Mclean following their appointment on 02/10/2025 Liaison contact information provided. Will follow up in 3 months to ensure continuum of care. Kaia Jean [facility] Nurse Liaison [phone] documented in this encounter Plan of Treatment Upcoming Encounters Date Type Department Care Team (Late st Contact Info) Description 03/03/2025 3:30 PM EDT Office Visit [facility] [address] [place] [address] Rita Amezcua MD [address] [place] [address] 02/16/2026 10:00 AM EDT Office Visit [facility] [place] Luis [address] [place] [address] Hernandez Arzate MD [address] [place] [address] documented as of this encounter [...] documented as of this encounter Care Teams Patrol Driver Relationship Specialty Start Date End Date Loy Cruz MD PCP - General 08/31/22 documented as of this encounter
== END 2025-02-12 23:59 | disposition home or self-care (01) ==
LOC: LAB.DROPOF 02-15 13:47
PROVIDERS: PCP Family Medicine; Visit Provider Student in an Organized Health Care Education/Training Program
DX: J02.9 Acute pharyngitis, unspecified (principal); J34.89 Other specified disorders of nose and nasal sinuses; R68.83 Chills (without fever); R52 Pain, unspecified
CPT/HCPCS: 87070; 87636

== ENCOUNTER 2025-02-12 15:09 | Emergency (ER) | payer MEDICARE, SELFPAY ==
--- OUTSIDE RECORDS SUMMARY | 2025-02-10 10:15 | XMS_ITS | Encounter Summary ---
Author Organization [facility] Address [address] [place] [address] Care Team Providers Care Ballistics Professor Name Role Phone Loy Cruz MD Primary Care Provider [phone] Reason for Referral * Consultation (Routine) - Authorized Specialty Diagnoses / Procedures Referred By Contac t Referred To Contact Diagnoses Atherosclerosis of [place] coronary artery of [place] heart without angina pectoris Hernandez Arzate MD [address] [place] [phone] Phone: tel: fax: Referral ID Status Reason Start Date Expiration Date V isits Requested Visits Authorized [id number] Authorized 02/10/2025 08/12/2026 1 1 Reason for Visit * Reason Comments New Patient * Consultation (Routine) - Closed Specialty Diagnoses / Procedures Referred By Contac t Referred To Contact Cardiology Diagnoses Atypical angina Nicole Lake, TERMINAL MAKE UP OPERATOR [address] [facility] [address] [address] Phone: tel: fax: Referral ID Status Reason Start Date Expiration Date V isits Requested Visits Authorized [id number] Closed Specialty Services Required 12/31/2024 07/02/2026 1 1 Encounter Details Date Type Department Care Team (Latest Contact Info) Description 02/10/2025 10:15 AM EDT Office Visit [facility] [place] [facility] [address] [facility] [place] [address] Hernandez Arzate MD [address] [place] [phone] Atherosclerosis of iroquois coronary artery of iroquois heart without angina pectoris (Primary Dx) Social [...] at all 02/10/2025 10:29 AM Julianna Aponte Trouble concentrating on things, such as reading [...] Patient Brisa Mclean [address] [place] [address] Referring Provider Nicole Lake APRN PCP Loy Cruz MD Chief complaint: CAD/atypical chest pain SUBJECTIVE History of Present Illness Today Dr. Arzate and I saw Brisa Mclean, a 69 y.o. female at [facility] [place] [facility] [place] for consultation of CAD/atypical chest pain at [...] Visit Diagnoses and Orders 1. Atherosclerosis of iroquois coronary artery of iroquois heart without angina pectoris Lipid panel, Lipid [...] who agrees with the plan. Nicole Lake, TERMINAL MAKE UP OPERATOR, thank you for the consultation. Please do not hesitate to contact us with any questions. Jesika Goss, TERMINAL MAKE UP OPERATOR [1] Patient Active Problem List Diagnosis Abdominal [...] Description 03/03/2025 3:30 PM EDT Office Visit [facility] [address] [place] [address] Rita Amezcua MD [address] [place] [phone] Scheduled Referrals Name Type Priority Associated Diagnoses Order Schedule Follow Up Cardiology Outpatient Referral Routine Atherosclerosis of iroquois coronary artery of iroquois heart without angina pectoris Expected: 02/10/2026, Expires: 08/13/2026 documented as of this encounter Procedures Procedure Name Priority Date/Time Associated Diagnosis Comments LIPID PROFILE, PLASMA Routine 02/10/2025 11:05 AM EDT Atherosclerosis of iroquois coronary artery of iroquois heart without angina pectoris documented in this encounter Results * Lipid panel (02/10/2025 11:05 AM EDT) Cholesterol, Plasma 172 <200 mg/dL 02/10/2025 12:10 PM EDT [facility] Comment: Cholesterol Reference Range (age >17 years): Desirable <200 mg/dL Borderline 200 to 239 mg/dL Undesirable >239 mg/dL HDL 75 >=50 mg/dL 02/10/2025 12:10 PM EDT [facility] Comment: HDL Cholesterol Reference Ranges (age >17 years): Female, acceptable > or = 50 mg/dL Male, acceptable > or = 40 mg/dL Triglycerides, Plasma 117 <150 mg/dL 02/10/2025 12:10 PM EDT [facility] Comment: Triglyceride Reference Range (age >17 years): Desirable: <150 mg/dL Borderline high: 150 to 199 mg/dL High: 200 to 499 mg/dL Very high: >499 mg/dL Increased risk of pancreatitis: >1000 mg/dL Cholesterol/HDL Ratio 2 02/10/2025 12:10 PM EDT [facility] LDL, Calculated 77 <100 mg/dL 12:10 PM EDT [facility] Comment: LDL Cholesterol [...] 12 hours? No 02/10/2025 12:10 PM EDT [facility] Blood Venous blood specimen / Unknown Venipuncture / Unknown 02/10/2025 11:05 AM EDT 02/10/2025 11:26 AM EDT us Bela Goss TERMINAL MAKE UP OPERATOR LAB BLOOD ORDERABLES Final Re sult [facility] [address] [place] [address] documented in this encounter Visit Diagnoses Diagnosis Atherosclerosis of iroquois coronary artery of iroquois heart without angina pectoris- Primary documented in this encounter Additional Health Concerns Assessment Noted Time PHQ-9 Depression Total Score: 0 02/11/20 25 10:29 AM EDT A fall risk assessment has been complete d for the patient 02/10/2025 10:29 AM EDT A Body Mass Index follow-up plan has been documented for the patient 02/10/2025 11:22 AM EDT documented as of this encounter Care Teams Ballistics Professor Relationship Specialty Start Date End Date Loy Cruz MD PCP - General 08/31/22 documented as of this encounter
--- NOTE | 2025-02-12 15:20 | HMH.EDGENADL ---
Discharge Plan Disposition Patient Disposition: Home, Self-Care Condition: Good Prescriptions Prescriptions: New nitrofurantoin monohyd/m-cryst 100 mg capsule 100 mg PO BID 5 Days Qty: 10 0RF Rx Instructions: must administer with a meal/food No Action cholecalciferol (vitamin D3) 25 mcg (1,000 unit) capsule 25 mcg PO DAILY aspirin [Adult Aspirin Regimen] 81 mg tablet,delayed release (DR/EC) 81 mg PO DAILY Qty: 30 5RF rosuvastatin [Crestor] 20 mg tablet 20 mg PO DAILY Qty: 30 2RF lisinopril 10 mg tablet 10 mg PO DAILY cefdinir 300 mg capsule 300 mg PO BID Qty: 20 0RF Anoro Ellipta 62.5-25 mcg/actuation blister with device 1 inh inhalation DAILY 90 Days Qty: 180 2RF budesonide 3 mg capsule,delayed,extend.release 6 mg PO DAILY cyclobenzaprine 10 mg tablet 10 mg PO HS oxycodone-acetaminophen [Percocet] 5-325 mg tablet 1 tab PO BID PRN (Reason: pain) Qty: 20 0RF albuterol sulfate 90 mcg/actuation HFA aerosol inhaler 2 puff INHALATION Q6 Patient Comments: INHALE TWO PUFFS BY MOUTH EVERY 6 HOURS NEEDED FOR SHORTNESS OF BREATH OR wheezing Referrals Follow up/Referrals: Loy Cruz MD [Primary Care Provider, Family Practice] - See instructions Activity Restrictions/Add. Instructions Additional Instructions/Restrictions: I have prescribed antibiotic and sent the remainder to your pharmacy. Please take it till its gone. If you have persistent new or worsening signs or symptoms please follow-up with your PCP return to the ER as needed. Clinical Impressions Clinical Impression: Urinary tract infectious disease Qualifiers: Urinary tract infection type: site unspecified Hematuria presence: without hematuria Qualified Code(s): N39.0 - Urinary tract infection, site not specified Instructions Patient Instructions: DI for Urinary Tract Infection (UTI), DI for Urinary Tract Infection in Children Print Language Print Language: Estonian Discharge ED Provider: Apollo Paul Adult HPI <FAISAL Espinoza - Last Filed: 02/12/25 18:49> General Chief complaint: Urogenital-Female Stated complaint: Drop om BP 84/66 Time Seen by Provider: 02/12/25 15:19 History of Present Illness HPI narrative: Patient presents primarily for evaluation of a low blood pressure. Patient has been feeling unwell since Saturday and has gone to the urgent treatment center where she was diagnosed with a UTI. However she has not started antibiotics as she was allergic to what they prescribed. When she was there today she was noted to have a blood pressure in the 70s systolic. Patient however had no symptoms she had no lightheadedness no headache no dizziness chest pain shortness of breath fever chills hemoptysis hematochezia melena nausea vomiting diarrhea. She does have a history of hypertension is on blood pressure medications. Related Data Home Medications ?Medication ?Instructions ?Recorded ?Confirmed albuterol sulfate 90 mcg/actuation 2 puff inhalation Q6 wheezing 08/03/24 02/12/25 aerosol inhaler cholecalciferol (vitamin D3) 25 25 mcg PO DAILY 08/20/24 02/12/25 mcg (1,000 unit) capsule budesonide 3 mg 6 mg PO DAILY 12/08/24 02/12/25 capsule,delayed,extended release cyclobenzaprine 10 mg tablet 10 mg PO HS 12/08/24 02/12/25 lisinopril 10 mg tablet 10 mg PO DAILY 01/12/25 02/12/25 Previous Rx's ?Medication ?Instructions ?Recorded umeclidinium 62.5 mcg-vilanterol 1 inh inhalation DAILY 90 days 09/28/24 25 mcg/actuation powdr for #180 ea inhalation (Anoro Ellipta) aspirin 81 mg tablet,delayed 81 mg PO DAILY #30 tabs 12/31/24 release (Adult Aspirin Regimen) rosuvastatin 20 mg tablet (Crestor) 20 mg PO DAILY #30 tabs 12/31/24 oxycodone-acetaminophen 5 mg-325 1 tab PO BID PRN pain #20 tabs 25 mg tablet (Percocet) cefdinir 300 mg capsule 300 mg PO BID #20 caps 02/12/25 nitrofurantoin 100 mg PO BID 5 days #10 caps 02/12/25 monohydrate/macrocrystals 100 mg capsule Allergies Allergy/AdvReac Type Severity Reaction Status Date / Time Sulfa (Sulfonamide Allergy Mild rash Verified 02/12/25 12:23 Antibiotics) methocarbamol (From Robaxin) Allergy Unknown Verified 02/12/25 12:23 allergy reaction Penicillins Allergy Unknown Verified 02/12/25 12:23 allergy reaction [facility] <FAISAL Espinoza - Last Filed: 02/12/25 18:49> [facility] Disclaimer: The information contained in this section may have been updated after the patient was seen, as this information can be updated by other users. 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 Other chest pain Other forms of dyspnea Essential hypertension Dyspnea on exertion History of smoking 30 or more pack years Pulmonary emphysema Tick bite Vaccine counseling Encounter for screening for diabetes mellitus Screening cholesterol level Colon cancer screening Cervical cancer screening Breast cancer screening by mammogram Encounter for annual wellness visit (AWV) in Medicare patient Strep sore throat Otitis media of right ear Sinusitis Low back pain Muscle spasm Back pain Upper respiratory infection Acute viral syndrome Bronchitis Dyspnea Allergy to sulfa drugs Itching Migraine Otitis media Viral syndrome COPD exacerbation Exposure to COVID-19 virus Viral syndrome Syncope and collapse Abdominal pain Fatigue COPD exacerbation Chest pain Lumbar radiculopathy Viral upper respiratory illness Skin problem Surgical History Hx of fusion of cervical spine H/O tubal ligation Family History Father Coronary artery disease Mother Cancer breast Sister Cancer gallbladder Sister Cancer breast Hypertension Son Hyperlipidemia 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 Smoking Status: Never smoker years smoked: 30 alcohol intake: never current occupational status: retired Travel in the last 8 weeks?: None caffeine: Yes Have you lived/traveled outside US in past 30 days?: No Contact w/someone who lives/traveled outside US past 30 days?: No Exposure to someone with infectious disease in past 14 days?: No Do you have a fever (greater than 100.4 F or 38 C)?: No Have you tested positive for COVID-19?: No Exposed to someone with COVID-19 in past 14 days?: No Do you have a sore throat?: No Do you have a cough?: No Do you have any weakness?: No Do you have any diarrhea?: No Are you experiencing any unusual bleeding?: No Do you have any muscle aches/pain?: No Do you have any abdominal pain?: No Are you experiencing loss of taste or smell?: No Other 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 Have you received the Flu Vaccine for this season: No Have you received the Pneumonia Vaccine: Yes <FAISAL Espinoza - Last Filed: 02/12/25 18:49> ROS Obtained: Yes Systems reviewed as appropriate & no additional complaints except as documented Physical Exam <FAISAL Espinoza - Last Filed: 02/12/25 18:49> General General appearance: alert and in no apparent distress Respiratory Respiratory exam: Present normal lung sounds bilaterally Cardiovascular Cardiovascular exam: Present regular rate Neurological Exam Neurological exam: Present alert and oriented X3 Medical Decision Making <FAISAL Espinoza - Last Filed: 02/12/25 18:49> Medical Records Medical records reviewed: Yes I reviewed the patient's medical records. Screening: Per USPSTF and CDC recommendations, given the prevalence of disease in our region, it is our hospital?s policy to screen for HIV and viral Hepatitis for all patients aged 18 and over and those with ongoing risk factors. [place] Inquiry Pt receiving controlled substance: No Vital Signs: 02/12/25 15:40 02/12/25 17:11 02/12/25 18:20 Temperature 97.6 F 98.7 F Temperature Source Oral Oral Pulse Rate 89 82 Pulse Rate [Left Brachial] 89 Respiratory Rate 19 19 20 Blood Pressure 120/70 143/77 H Blood Pressure [Left Arm] 98/65 L Blood Pressure Mean [Left Arm] 76 Blood Pressure Source Automatic Cuff Automatic Cuff Blood Pressure Source [Left Arm] Automatic Cuff Blood Pressure Position Sitting Sitting Blood Pressure Position [Left Arm] Sitting 02 Sat by Pulse Oximetry 99 98 Oxygen Delivery Method Room Air Room Air Room Air Lab Data Lab results reviewed: Yes I reviewed the patient's lab results. Lab Results 02/12/25 15:56: WBC 14.2 H, RBC 4.36, Hgb 13.1, Hct 40.5, MCV 92.9, MCH 30.0, MCHC 32.3, RDW 14.2, Plt Count 280, MPV 9.4, Neut % (Auto) 70.8, Lymph % (Auto) 15.9, Sebastian % (Auto) 11.1 H, Eos % (Auto) 1.4, Baso % (Auto) 0.4, Neut # (Auto) 10.1 H, Lymph # (Auto) 2.3, Sebastian # (Auto) 1.6 H, Eos # (Auto) 0.2, Baso # (Auto) 0.1, Total Counted 100, Neutrophils % (Manual) 70, Lymphocytes % (Manual) 16, Monocytes % (Manual) 10 H, Eosinophils % (Manual) 3, Basophils % (Manual) 1.0, Platelet Estimate Normal, Polychromasia 1+, Poikilocytosis 1+, Anisocytosis 1+, Macrocytosis 1+, Tear Drop Cells 1+, Sodium 137, Potassium 3.7, Chloride 103, Carbon Dioxide 27, Anion Gap 10.7, BUN 11, Creatinine 0.80, Estimated Creat Clear 35, Estimated GFR 71, Est GFR ( Amer) 86, Glucose 154 H, Calcium 9.6, Total Bilirubin 0.4, AST 33, ALT 28, Alkaline Phosphatase 63, Total Protein 7.0, Albumin 3.6, Globulin 3.4 H, Albumin/Globulin Ratio 1.1 02/12/25 17:18: Urine Color Yellow, Urine Appearance Clear, Urine pH 6.0, Ur Specific [place] 1.025, Urine Protein Trace, Urine Glucose (UA) Negative, Urine Ketones Negative, Urine Blood Negative, Urine Nitrate Negative, Urine Bilirubin Negative, Urine Urobilinogen 0.2, Ur Leukocyte Esterase 1+ A, Ur Squamous Epith Cells 10-20, Urine Bacteria 2+ 02/12/25 15:56 02/12/25 15:56 Orders (Tests/Meds): ED MEDICATIONS Discontinued Medications Generic Name Dose Route Start Last Admin Trade Name Freq PRN Reason Stop Dose Admin Sodium Chloride 1,000 mls @ 999 mls/hr 02/12/25 15:40 02/12/25 16:06 Sod Chlor 0.9% 1000ml Bag IV 02/12/25 16:40 999 mls/hr .Q1H1M ONE Administration Nitrofurantoin Macrocrystals 100 mg 02/12/25 17:50 02/12/25 18:20 Nitrofurantoin 100mg Capsule PO 02/12/25 17:51 100 mg ONCE ONE Administration ORDERS Category Date Time Status CBC w/Auto Diff [Complete Blood Count Auto Diff] Stat Lab 02/12/25 15:56 Completed CMP [Comprehensive Metabolic Panel] Stat Lab 02/12/25 15:56 Completed UA [Urinalysis and Microscopic] Stat Lab 02/12/25 17:18 Completed Urine Culture Routine Micro 02/12/25 12:47 Received Medical Decision Narrative: In summary patient is a 69-year-old female who presents to the emergency department for evaluation of low blood pressure. Patient is is initially hypotensive with a blood pressure of 98/65 with a pulse of 89 sinus rhythm on the bedside monitor breathing 18 times a minute satting at 99% on room air upon arrival, afebrile at 97.6. Physical exam reveals a well-nourished well-developed 69-year-old female who is currently in no acute distress. Breath sounds clear to the bilateral to the bases with adventitious sounds increased work of breathing or accessory muscle use. Cardiovascular S1 is 2 regular rate and rhythm without murmurs gallops rubs or thrills or dependent edema noted. Abdomen soft nontender no rebound or guarding no rigidity. Bowel sounds normal active.. Differential diagnosis includes dehydration versus infection versus UTI versus medication related hypotension etc. Initial workup will be conducted with hematologic labs urinalysis. Initial interventions include crystalloid bolus. Initial workup reviewed by me and her hematologic labs are nonactionable and urinalysis is consistent with a urinary tract infection. Upon repeat evaluation patient's blood pressure has responded nicely to single liter of crystalloid and her blood pressure is now 143/77. Given this patient is appropriate for discharge with prescription for Macrobid with first dose given here and instructions to follow-up with her PCP should her blood pressure continue to be problematic return to the ER as needed <Apollo Paul MD - Last Filed: 02/13/25 09:37> Vital Signs: 02/12/25 15:40 02/12/25 17:11 02/12/25 18:20 Temperature 97.6 F 98.7 F Temperature Source Oral Oral Pulse Rate 89 82 Pulse Rate [Left Brachial] 89 Respiratory Rate 19 19 20 Blood Pressure 120/70 143/77 H Blood Pressure [Left Arm] 98/65 L Blood Pressure Mean [Left Arm] 76 Blood Pressure Source Automatic Cuff Automatic Cuff Blood Pressure Source [Left Arm] Automatic Cuff Blood Pressure Position Sitting Sitting Blood Pressure Position [Left Arm] Sitting 02 Sat by Pulse Oximetry 99 98 Oxygen Delivery Method Room Air Room Air Room Air Lab Data Lab Results 02/12/25 15:56: WBC 14.2 H, RBC 4.36, Hgb 13.1, Hct 40.5, MCV 92.9, MCH 30.0, MCHC 32.3, RDW 14.2, Plt Count 280, MPV 9.4, Neut % (Auto) 70.8, Lymph % (Auto) 15.9, Sebastian % (Auto) 11.1 H, Eos % (Auto) 1.4, Baso % (Auto) 0.4, Neut # (Auto) 10.1 H, Lymph # (Auto) 2.3, Sebastian # (Auto) 1.6 H, Eos # (Auto) 0.2, Baso # (Auto) 0.1, Total Counted 100, Neutrophils % (Manual) 70, Lymphocytes % (Manual) 16, Monocytes % (Manual) 10 H, Eosinophils % (Manual) 3, Basophils % (Manual) 1.0, Platelet Estimate Normal, Polychromasia 1+, Poikilocytosis 1+, Anisocytosis 1+, Macrocytosis 1+, Tear Drop Cells 1+, Sodium 137, Potassium 3.7, Chloride 103, Carbon Dioxide 27, Anion Gap 10.7, BUN 11, Creatinine 0.80, Estimated Creat Clear 35, Estimated GFR 71, Est GFR ( Amer) 86, Glucose 154 H, Calcium 9.6, Total Bilirubin 0.4, AST 33, ALT 28, Alkaline Phosphatase 63, Total Protein 7.0, Albumin 3.6, Globulin 3.4 H, Albumin/Globulin Ratio 1.1 02/12/25 17:18: Urine Color Yellow, Urine Appearance Clear, Urine pH 6.0, Ur Specific [place] 1.025, Urine Protein Trace, Urine Glucose (UA) Negative, Urine Ketones Negative, Urine Blood Negative, Urine Nitrate Negative, Urine Bilirubin Negative, Urine Urobilinogen 0.2, Ur Leukocyte Esterase 1+ A, Ur Squamous Epith Cells 10-20, Urine Bacteria 2+ Orders (Tests/Meds): ED MEDICATIONS Discontinued Medications Generic Name Dose Route Start Last Admin Trade Name Freq PRN Reason Stop Dose Admin Sodium Chloride 1,000 mls @ 999 mls/hr 02/12/25 15:40 02/12/25 16:06 Sod Chlor 0.9% 1000ml Bag IV 02/12/25 16:40 999 mls/hr .Q1H1M ONE Administration Nitrofurantoin Macrocrystals 100 mg 02/12/25 17:50 02/12/25 18:20 Nitrofurantoin 100mg Capsule PO 02/12/25 17:51 100 mg ONCE ONE Administration ORDERS Category Date Time Status CBC w/Auto Diff [Complete Blood Count Auto Diff] Stat Lab 02/12/25 15:56 Completed CMP [Comprehensive Metabolic Panel] Stat Lab 02/12/25 15:56 Completed UA [Urinalysis and Microscopic] Stat Lab 02/12/25 17:18 Completed Urine Culture Routine Micro 02/12/25 12:47 Received Medical Decision Narrative: In summary patient is a 69-year-old female who presents to the emergency department for evaluation of low blood pressure. Patient is is initially hypotensive with a blood pressure of 98/65 with a pulse of 89 sinus rhythm on the bedside monitor breathing 18 times a minute satting at 99% on room air upon arrival, afebrile at 97.6. Physical exam reveals a well-nourished well-developed 69-year-old female who is currently in no acute distress. Breath sounds clear to the bilateral to the bases with adventitious sounds increased work of breathing or accessory muscle use. Cardiovascular S1 is 2 regular rate and rhythm without murmurs gallops rubs or thrills or dependent edema noted. Abdomen soft nontender no rebound or guarding no rigidity. Bowel sounds normal active.. Differential diagnosis includes dehydration versus infection versus UTI versus medication related hypotension etc. Initial workup will be conducted with hematologic labs urinalysis. Initial interventions include crystalloid bolus. Initial workup reviewed by me and her hematologic labs are nonactionable and urinalysis is consistent with a urinary tract infection. Upon repeat evaluation patient's blood pressure has responded nicely to single liter of crystalloid and her blood pressure is now 143/77. Given this patient is appropriate for discharge with prescription for Macrobid with first dose given here and instructions to follow-up with her PCP should her blood pressure continue to be problematic return to the ER as needed I was consulted by the LORRI, and we discussed the complexity of the problems being addressed. I approve the treatment and management plan for this patient's care in the emergency department, thus performing a substantive portion of the medical decision making. Apollo Paul MD Critical Care <FAISAL Espinoza - Last Filed: 02/12/25 18:49> Critical Care Time Critical Care Time: No
--- OUTSIDE RECORDS SUMMARY | 2025-02-12 15:24 | XMS_ITS | Encounter Summary ---
Author Organization Healthcare Address [address] [place] [address] Care Team Providers Care Assistant Teacher Name Role Phone Loy Cruz MD Primary Care Provider [phone] Encounter Details Date Type Department Care Team (Late st Contact Info) Description 08/10/2024 Orders Only External Location [address] [place] [address] Provider, External 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 Tobacco Use Types Packs/Day Years Used Date Smoking Tobacco: Every Day Cigarettes 1 41.6 Started: 1983 Passive Smoke Exposure: Current Smokeless [...] Description 03/03/2025 3:30 PM EDT Office Visit [facility] [address] [place] [address] Rita Amezcua MD [address] [address] documented as of this encounter Procedures Procedure Name Priority Date/Time Associated Diagnosis Comments CT OUTSIDE IMAGES 08/10/2024 11:40 PM EST documented in this encounter Results * CT OUTSIDE IMAGES (08/10/2024 11:40 PM EST) Anatomical Region Laterality Modality Computed Tomogra phy 08/10/2024 11:4 0 PM EST us External Provider IMG CT PROCEDURES Final Result documented in this encounter Visit Diagnoses Not on filedocumented in this encounter Additional Health Concerns Assessment Noted Time A Body Mass Index follow-up plan has been documented for the patient 04/07/2024 8:13 AM EDT documented as of this encounter Care Teams Assistant Teacher Relationship Specialty Start Date End Date Loy Cruz MD PCP - General 08/31/22 documented as of this encounter
--- OUTSIDE RECORDS SUMMARY | 2025-02-12 15:24 | XMS_ITS | Encounter Summary ---
Author Organization [facility] Address [address] [place] [address] Care Team Providers Care Returned Goods Receiving Clerk Name Role Phone Loy Cruz MD Primary Care Provider [phone] Encounter Details Date Type Department Care Team (Late st Contact Info) Description 02/04/2025 Telephone [facility] [address] [place] [address] [place] [address] 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 Tobacco Use Types Packs/Day Years [...] as of this encounter Miscellaneous Notes * Telephone Encounter - Kaia Jean - 02/04/2025 1:52 PM EDT Patient Name: Brisa Mclean :1955 Date:02/04/2025 [facility] site:[place] Referring Physician:Nicole Lake Education/ Information provided: This Nurse Liaison spoke with Brisa Mclean prior to an appointment on 02/10/2025 Explained nurse liaison services offered through [facility]. Discussed appointment necessity, and subspecialty clinic the pt will be seeing. Patient verbalizes understanding. Patient denied any barriersto arriving to clinic visit. All questions answered. Provided patient with liaison contact information and encouraged patient to call with any questions, concerns or assistance needs. Will follow up with patient after appointment. Kaia Jean [facility] Nurse Liaison [phone] documented in this encounter Plan of Treatment Upcoming Encounters Date Type Department Care Team (Late st Contact Info) Description 03/03/2025 3:30 PM EDT Office Visit [facility] [address] [place] [address] Rita Amezcua MD [address] [address] documented as of this encounter Visit Diagnoses Not on filedocumented in this encounter Additional Health Concerns Assessment Noted Time A Body Mass Index follow-up plan has been documented for the patient 04/07/2024 8:13 AM EDT documented as of this encounter Care Teams Returned Goods Receiving Clerk Relationship Specialty Start Date End Date Loy Cruz MD PCP - General 08/31/22 documented as of this encounter
--- OUTSIDE RECORDS SUMMARY | 2025-02-12 15:24 | XMS_ITS | Clinical Summary ---
Author Organization [facility] Address [address] [place] [address] Care Team Providers Care Still Tender Name Role Phone Unavailable Primary Care Provider Unavailabl e 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 Tobacco Use Types Packs/Day Years Used Date Smoking Tobacco: Never Assessed Abuse Screen Answer Date Recorded Unsafe at Home or Work/School Not on file Feels Threatened by Someone? Not on file 03/2023 Does Anyone Keep You from Co ntacting Others or Doint Things Outside the Home? Not on file 04/29/2023 Physical Sign of Abuse Present Not on file 1 Housing Stability Answer Date Recorded Current Living Arrangements Not on file 03/2023 Potentially Unsafe Housing Conditions Not on issac e 04/29/2023 Family and Community Support Answer Kimo e Recorded Help with Day-to-Day Activities Not on file 04/29/2023 Lonely or Isolated Not on file 04/29/2023 Employment Answer Date Recorded Do you want help finding or keeping work or a jocy b? Not on file 04/29/2023 Disabilities Answer Date Recorded Concentrating, Remembering, or Making Decisions Difficulty Not on file 04/29/2023 Doing Errands Independently Difficulty Not on fi le 04/29/2023 Education Answer Date Recorded Help with school or training? Not on file Preferred Language Not on file 04/29/2023 Comments Unknown Sex and Gender Information Value Date Recorded Sex Assigned at Not on file Legal Sex Female 1:34 PM EDT Gender Identity Not on file Sexual Orientation Not on file Plan of Treatment Health Maintenance Due Date Last Done Comments ANNUAL PHYSICAL 1955 DXA SCAN 1955 HEPATITIS C SCREENING 1955 TDAP/TD VACCINES (1 - Tdap) 12/10/1975 MAMMOGRAM 1996 COLOGUARD 2001 COLON CANCER SCREENING 5 YEAR SIGMOIDOSCOPY 2001 COLONOSCOPY [address] CANCER SCREENING 2001 CT COLONOGRAPHY 2001 FECAL OCCULT BLOOD TEST 2001 FIT Testing (1 year) 2001 Pneumococcal Vaccine 50+ (1 of 1 - PCV) 2006 ZOSTER VACCINE (1 of 2) 2006 COVID-19 Vaccine (1 - season) 2024 INFLUENZA VACCINE 04/21/2025
--- OUTSIDE RECORDS SUMMARY | 2025-02-12 15:24 | XMS_ITS | Encounter Summary ---
Author Organization Healthcare Address [address] [place] [address] Care Team Providers Care Hydro Station Supervisor Name Role Phone Loy Cruz MD Primary Care Provider Encounter Details Date Type Department Care Team (Late st Contact Info) Description 08/02/2024 Orders Only External Location [address] [place] [address] Provider, External 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 Tobacco Use Types [...] Description 03/03/2025 3:30 PM EDT Office Visit [facility] [address] [place] [address] Rita Amezcua MD [address] [address] documented as of this encounter [...] documented as of this encounter Care Teams Hydro Station Supervisor Relationship Specialty Start Date End Date Loy Cruz MD PCP - General 08/31/22 documented as of this encounter
--- OUTSIDE RECORDS SUMMARY | 2025-02-12 15:24 | XMS_ITS | Referral Summary ---
Author Organization [employer] ([place], [place], [place], [place]) Address [address] [place] [address] Care Team Providers Care Senior Sharepoint Developer Name Role Phone Loy Cruz MD Primary Care Provider [phone] Allergies Active Allergy Reactions Criticality Noted Date [...] Date Toño rded Speak language other than Slovenian at home Not on file 08/04/2023 Want [...] FACTORS: Estrogen deficiency, tobacco usage COMPARISON STUDY: [facility] 2017 FINDINGS: Bone densitometry was performed using a [employer] QDR series machine. Sites measured included the [...] FACTORS: Estrogen deficiency, tobacco usage COMPARISON STUDY: [facility] 2016 FINDINGS: Bone densitometry was performed using a [employer] QDR series machine. Sites measured included the [...] Most Recently Relevant to Health Maintenance Insurance [facility] Care Teams Senior Sharepoint Developer Relationship Specialty Start Date End Date Loy Cruz MD [address] [place] [address] PCP - General Family Medicine 04/18/23
--- OUTSIDE RECORDS SUMMARY | 2025-02-12 15:24 | XMS_ITS | Encounter Summary ---
Author Organization [employer] ([place], [place], [place], [place]) Address [address] [place] [address] Care Team Providers Care Filtration Plant Operator Name Role Phone Loy Cruz MD Primary Care Provider [phone] Encounter Details Date Type Department Care Team (Late st Contact Info) Description 10/06/2020 Transcribed Document [facility] Family Medicine [address] [place] [address] ProviderMarly MD [address] [place] [address] 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 Tobacco Use Types [...] % Oxygen Therapy Mode : Room air JOSEFINA CORRIGAN RN - 10/06/2020 16:03 EDT Height and Weight, Clinical Dosing Height Source : Chart Height Entry Format : [place] Height, Feet : 5 ft(Converted to: 152 cm, 60 Inch) Height, Inches : 0 Inch(Converted to: 0 ft 0 Inch, 0.00 cm) Clinical Height : 152.4 cm Weight Source : Standing scale Weight Entry Format : [place] Clinical Dosing Weight : 43.18 kg Weight, Pounds : 95 lb Body Surface Area (BSA) : 1.36 m2 Body Mass Index : 18.6 kg/m2 (LOW) [place] Body Weight : 45 kg JOSEFINA CORRIGAN [...] 1. (Last Updated: 06/28/2014 09:35:18 EST by NICOLAS GIL RN) Alcohol: Use in Last 12 [...] JOSEFINA CORRIGAN RN - 10/06/2020 16:03 EDT [place] Suicide Severity Rating Scale (C-SSRS) CSSRS Past [...] Scale Risk Level : 0-24 Low Risk Spur Fall Interventions : Adequate lighting, Call device [...] on filedocumented in this encounter Care Teams Filtration Plant Operator Relationship Specialty Start Date End Date Loy Cruz MD [address] [place] [address] PCP - General Family Medicine 04/18/23 documented as of this encounter
--- OUTSIDE RECORDS SUMMARY | 2025-02-12 15:24 | XMS_ITS | Encounter Summary ---
Author Organization [employer] ([place], [place], [place], [place]) Address [address] [place] [address] Care Team Providers Care Account Manager Education Name Role Phone Loy Cruz MD Primary Care Provider [phone] Encounter Details Date Type Department Care Team (Late st Contact Info) Description 10/06/[address] [facility] [place] [address] ProviderMarly MD [address] [place] [address] 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 Tobacco Use Types [...] Ramsay MD - 10/06/2020 4:36 PM CDT [address] [address] BRISA MCLEAN :1955 Visit Time:10/06/2020 Your Visit Summary Your Care Team Admitting Physician - KINZA BRENNER MD-OBG Attending Physician - KINZA BRENNER MD-OBG Primary Care Physician - VINITA HARDIN (REF), -[facility] Referring Physician - KINZA BRENNER MD-OBG Your [...] your dental hygiene while using zoledronic acid. [place] and floss your teeth regularly. If you [...] may report side effects to FDA at 9-355-PDW-0057. What other drugs will affect zoledronic acid? Zoledronic acid can harm your kidneys, especially if you also use certain medicines for infections, cancer, osteoporosis, organ transplant rejection, bowel disorders, or pain or arthritis (including aspirin, Tylenol, Advil, and Aleve). Other drugs may affect zoledronic acid, including prescription and wqle-olx-jxmlwfw medicines, vitamins, and herbal products. Tell your [...] to ensure that the information provided by [employer]') is accurate, up-to-date, and complete, but no guarantee is made to that effect. Drug information contained herein may be time sensitive. [employer] information has been compiled for use by healthcare practitioners and consumers in the [place] and therefore [employer] does not warrant that uses outside of the [place] are appropriate, unless specifically indicated otherwise. [employer] drug information does not endorse drugs, diagnose patients or recommend therapy. [employer] drug information is an informational resource designed [...] effective or appropriate for any given patient. [employer] does not assume any responsibility for any aspect of healthcare administered with the aid of information [employer] provides. The information contained herein is not intended to cover all possible uses, directions, precautions, warnings, drug interactions, allergic reactions, or adverse effects. If you have questions about the drugs you are taking, check with your doctor, nurse or pharmacist. Copyright 0786-8882 [employer]. Version: 17.. Revision Date: 01/20/2020. calcium carbonate [...] may report side effects to FDA at 0-137-GSZ-8711. What other drugs can affect calcium carbonate? Calcium can make it harder for your body to absorb certain medicines. If you take other medications, take them at least 2 hours before or 4 or 6 hours after you take calcium carbonate. Other drugs may interact with calcium carbonate, including prescription and fjkp-vng-qtfcxak medicines, vitamins, and herbal products. Tell your [...] to ensure that the information provided by [employer]. ('[employer]') is accurate, up-to-date, and complete, but no guarantee is made to that effect. Drug information contained herein may be time sensitive. [employer] information has been compiled for use by healthcare practitioners and consumers in the [place] and therefore [employer] does not warrant that uses outside of the [place] are appropriate, unless specifically indicated otherwise. [employer] drug information does not endorse drugs, diagnose patients or recommend therapy. [employer] drug information is an informational resource designed [...] effective or appropriate for any given patient. [employer] does not assume any responsibility for any aspect of healthcare administered with the aid of information [employer] provides. The information contained herein is not intended to cover all possible uses, directions, precautions, warnings, drug interactions, allergic reactions, or adverse effects. If you have questions about the drugs you are taking, check with your doctor, nurse or pharmacist. Copyright 6645-8523 [employer]. Version: 7.01. Revision Date: 07/03/2017. Emergency Awareness [...] Assistance with quitting is available by contacting 7-859-MOSIinDineroNOW. This is a free resource providing counseling, [...] was given the opportunity to ask questions. Patient/Site Physician Name: Patient/Site Physician Signature: Relationship to Patient: Clinician/Hospital Site Physician Signature: Date: Electronically signed by Marivel, [facility] Conversion Plate Maker Cerner at 11/07/2022 11:56 AM CDT documented in this encounter Plan of Treatment Not on file documented as of this encounter Visit Diagnoses Not on filedocumented in this encounter Care Teams Account Manager Education Relationship Specialty Start Date End Date Loy Cruz MD [address] [place] [address] PCP - General Family Medicine 04/18/23 documented as of this encounter
--- OUTSIDE RECORDS SUMMARY | 2025-02-12 15:24 | XMS_ITS | Clinical Summary ---
Author Organization [facility] Address [address] [place] [address] Care Team Providers Care Executive Steward Name Role Phone Loy Cruz MD Primary Care Provider [phone] Allergies Active Allergy Reactions Criticality Noted Date [...] DAY AT BEDTIME MAY CAUSE DROWSINESS Active lisinopril 10 MG tablet Take 1 tablet by mouth daily. 5 Active budesonide EC (Entocort EC) 3 MG 24 hr capsule Take 3 capsules by mouth daily. 5 Active oxyCODONE-aceta minophen (Percocet) 5-325 MG tablet TAKE ONE TABLET BY MOUTH TWICE DAILY NEEDED FOR PAIN MAY CAUSE DROWSINESS 5 Active rosuvastatin (Crestor) 20 MG tablet Take 1 tablet by mouth daily. 5 Active Anoro Ellipta 62.5-25 MCG/ACT aerosol powder aerosol powder Inhale 1 Inhalation. Active Active Problems Problem Noted Date Diagnosed [...] Encounters Date Type Department Care Team Description 02/11/2025 Telephone [facility] [address] [place] [address] Kaia Jean 02/10/2025 10:15 AM EDT Office Visit [facility] [address] [place] [address] Hernandez Arzate MD Atherosclerosis of [place] coronary artery of [place] heart without angina pectoris (Primary Dx) 02/10/2025 Travel 02/04/2025 Telephone [facility] [address] [place] [address] Kaia Jean from Last 3 Months Immunizations Immunization Administration Dates Next Due Influenza Vaccine, Quadrivalent, Adjuvanted 04/22 Influenza, injectable, MDCK, preservative free, quadrivalent 05/09/2021 Influenza, injectable, quadrivalent 04/07/2020 Influenza, trivalent, adjuvanted 05/25/2024 Pneumococcal 20-suzi Conj Vaccine 05/25/2024 Tdap 01/12/2021 Family History 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 Relation Name Comments Heart failure Father bypass Father Breast cancer Mother Breast cancer Sister gall bladder cancer Sister Relation Name Status Comments Father Mother Sister 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 Tobacco Use Types [...] Mass Index 18.7 02/10/2025 10:29 AM EDT Plan of Treatment Upcoming Encounters Date Type Department Care Team (Late st Contact Info) Description 03/03/2025 3:30 PM EDT Office Visit [facility] [address] [place] [address] Rita Amezcua MD [address] [address] Health Maintenance Due Date Last Done Comments [facility]-Hepatitis C Screening 1955 [facility]-Medicare Annual Wellness (AWV) 1955 [facility]-/Child/Adol SDOH Screenings 1955 [facility]- SDOH Screenings 1974 [facility]-Adult SDOH Screenings 1974 CT Colonography 2001 Colonoscopy 2001 FIT-DNA 2001 FIT 2001 FOBT 2001 Sigmoidoscopy 2001 [facility]-Colorectal Cancer Screening 2001 [facility]-Zoster Vaccines (1 of 2) 2006 [facility]-Bone Density Scan 08/05/2020 08/05/2019 [id number] Vaccine ( season) 2024 05/31/2021, 10/26/2020, 09/28/2020 [facility]-Influenza Vaccine (#1) 03/22/202505/25, 05/17/2023, 05/09/2021, Additional history exists [facility]-Depression Screening 02/10/2026 02/10/2025, 01/20 [facility]-Breast Cancer Screening 11/10/202610/21, 09/26/2023, 08/31/2022, Additional [...] Routine 02/10/2025 11:05 AM EDT Atherosclerosis of [place] coronary artery of [place] heart without angina pectoris MAMMOGRAPHY BREAST SCREENING TOMOSYNTHESIS BILATERAL Routine 11/10/2024 3:03 PM EDT Encounter for screening mammogram for malignant neoplasm of breast from Last 3 Months or Most Recently Relevant to Health Maintenance Results * Lipid panel (02/10/2025 11:05 AM EDT) Cholesterol, Plasma 172 <200 mg/dL 02/10/2025 12:[address] [facility] Comment: Cholesterol Reference Range (age >17 years): Desirable <200 mg/dL Borderline 200 to 239 mg/dL Undesirable >239 mg/dL HDL 75 >=50 mg/dL 02/10/2025 12:[address] [facility] Comment: HDL Cholesterol Reference Ranges (age >17 years): Female, acceptable > or = 50 mg/dL Male, acceptable > or = 40 mg/dL Triglycerides, Plasma 117 <150 mg/dL 02/10/2025 12:[address] [facility] Comment: Triglyceride Reference Range (age >17 years): Desirable: <150 mg/dL Borderline high: 150 to 199 mg/dL High: 200 to 499 mg/dL Very high: >499 mg/dL Increased risk of pancreatitis: >1000 mg/dL Cholesterol/HDL Ratio 2 02/10/2025 12:[address] [facility] LDL, Calculated 77 <100 mg/dL 12:[address] [facility] Comment: LDL Cholesterol Reference Range [...] 12 hours? No 02/10/2025 12:[address] [facility] Blood Venous blood specimen / Unknown Venipuncture / Unknown 02/10/2025 11:05 AM EDT 02/10/2025 11:26 AM EDT us Bela Goss CNC SET UP OPERATOR LAB BLOOD ORDERABLES Final Re sult [facility] [address] [place] [address] * Mammography Breast Screening Tomosynthesis Bilateral (11/10/2024 [...] 07/24/2021 Mammography Breast Screening Tomosynthesis Bilateral at [facility] 08/31/2022 Mammography Breast Screening Tomosynthesis Bilateral at [facility] 09/26/2023 Mammography Breast Screening Tomosynthesis Bilateral at [facility] BREAST COMPOSITION: The breasts are heterogeneously dense, which may obscure small masses. FINDINGS: There are no suspicious masses, calcifications, or areas of architectural distortion. Loy Cruz MD IMG BI PROCEDURES Final Result from Last 3 Months or Most Recently Relevant to Health Maintenance Insurance [facility] MEDICARE Care Teams Executive Steward Relationship Specialty Start Date End Date Loy Cruz MD [facility] - General 08/31/22
--- OUTSIDE RECORDS SUMMARY | 2025-02-12 15:24 | XMS_ITS | Clinical Summary ---
Author Organization [email or web address] ([place], [place], [place], [place]) Address [address] [place] [address] Care Team Providers Care Cigar Head Piercer Name Role Phone Loy Cruz MD Primary Care Provider [phone] Allergies Active Allergy Reactions Criticality Noted Date [...] Date Toño rded Speak language other than Guatemalan at home Not on file 08/04/2023 Want [...] FACTORS: Estrogen deficiency, tobacco usage COMPARISON STUDY: [facility] 2016 FINDINGS: Bone densitometry was performed using a [employer] QDR series machine. Sites measured included the [...] FACTORS: Estrogen deficiency, tobacco usage COMPARISON STUDY: [facility] 2017 FINDINGS: Bone densitometry was performed using a [employer] QDR series machine. Sites measured included the [...] 2 years. Left hip Zeb Varela MD [facility] DXA ORDERABLES Final Result from Last 3 Months or Most Recently Relevant to Health Maintenance Insurance [facility] [employer] ACCESS PPO MAP Care Teams Cigar Head Piercer Relationship Specialty Start Date End Date Loy Cruz MD [address] [place] [address] PCP - General Family Medicine 04/18/23
--- OUTSIDE RECORDS SUMMARY | 2025-02-12 15:24 | XMS_ITS | Encounter Summary ---
Author Organization [facility] Address [address] [place] [address] Care Team Providers Care Rotary Driller Name Role Phone Loy Cruz MD Primary Care Provider [phone] Encounter Details Date Type Department Care Team (Late st Contact Info) Description 02/11/2025 Telephone [facility] [address] [place] [address] [place] [address] 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 Tobacco Use Types Packs/Day Years Used Date Smoking Tobacco: Former Cigarettes 1 41.6 S tarted: 1984 Passive Smoke Exposure: Current Smokeless Tobacco: Never [...] * Telephone Encounter - Kaia Jean - 02/11/2025 2:04 PM EDT Patient Name:Brisa Mclean : 1955 Date:02/11/2025 Affiliate Site: [facility] Referring Physician: Nicole Tom/ Seen: Cardiology/Dr. Arzate Future scheduling/testing needs: This [facility] Nurse Liaison left voicemail for Brisa Mclean following their appointment on 02/10/2025 Liaison contact information provided. Will follow up in 3 months to ensure continuum of care. Kaia Jean [facility] Nurse Liaison [phone] documented in this encounter Plan of Treatment Upcoming Encounters Date Type Department Care Team (Late st Contact Info) Description 03/03/2025 3:30 PM EDT Office Visit [facility] [address] [place] [address] Rita Amezcua MD [address] [facility] [address] [place] [address] documented as of this encounter Visit [...] documented as of this encounter Care Teams Rotary Driller Relationship Specialty Start Date End Date Loy Cruz MD PCP - General 08/31/22 documented as of this encounter
--- OUTSIDE RECORDS SUMMARY | 2025-02-12 15:24 | XMS_ITS | Encounter Summary ---
Author Organization [facility] Address [address] [place] [address] Care Team Providers Care Precision Lens Grinder Name Role Phone Loy Cruz MD Primary Care Provider [phone] Encounter Details Date Type Department Care Team (Latest Contact Info) Description 02/10/2025 Travel 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 Tobacco Use Types Packs/Day Years [...] on file documented as of this encounter Functional Status * Over the past 2 weeks, how often have you been bothered by any of the following problems? Question Answer Date of Assessment Author Little interest or pleasure in doing things Not at all 02/10/2025 10:29 AM Julianna Aponte Feeling down, depressed, or hopeless Not at all 02/10/2025 10:29 AM Julianna Aponte Patient Health Questionnaire -2 Score 0 02/10/2025 10:29 AM Julianna Aponte * Question Answer Date of Assessment Author Trouble falling or staying asleep, or sleeping too much Not at all 02/10/2025 10:29 AM Julianna Aponte Feeling tired or having beti le energy [...] Corina Aponte documented as of this encounter Plan of Treatment Upcoming Encounters Date Type Department Care Team (Late st Contact Info) Description 03/03/2025 3:30 PM EDT Office Visit [facility] [address] [place] [address] Rita Amezcua MD [address] [address] documented as of this encounter Visit Diagnoses Not on filedocumented in this encounter Additional Health Concerns Assessment Noted Time PHQ-9 Depression Total Score: 0 02/11/20 10:29 AM EDT A fall risk assessment has been complete d for the patient 02/10/2025 10:29 AM EDT A Body Mass Index follow-up plan has been documented for the patient 02/10/2025 11:22 AM EDT documented as of this encounter Care Teams Precision Lens Grinder Relationship Specialty Start Date End Date Loy Cruz MD PCP - General 08/31/22 documented as of this encounter
--- OUTSIDE RECORDS SUMMARY | 2025-02-12 15:24 | XMS_ITS | Encounter Summary ---
Author Organization [employer] ([place], [place], [place], [place]) Address [address] [place] [address] Care Team Providers Care Transmission Superintendent Name Role Phone Loy Cruz MD Primary Care Provider [phone] Encounter Details Date Type Department Care Team (Late st Contact Info) Description 10/06/2020 Transcribed Document [facility] Family Medicine [address] [place] [address] ProviderMarly MD [address] [place] [address] 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 Tobacco Use Types [...] on filedocumented in this encounter Care Teams Transmission Superintendent Relationship Specialty Start Date End Date Loy Cruz MD [address] [place] [address] PCP - General Family Medicine 04/18/23 documented as of this encounter
[2025-02-12 15:40] VITALS: BP 98/65; PULSE 89; RESP 19; TEMP 36.4; O2SAT 99; BMI 18.6
[2025-02-12 16:04] LABS: Hematocrit 40.5 % (37.0-47.0); Hemoglobin 13.1 g/dL (12.2-16.2); Immature Granulocytes % 0.4 %; Mean Corpuscular HGB Conc 32.3 g/dL (31.8-35.4); Mean Corpuscular Hemoglobin 30.0 pg (27.0-31.2); Mean Corpuscular Volume 92.9 fl (81-99); Nucleated Red Blood Cells % 0 %; Platelet Count 280 K/mm3 (142-424); Red Blood Count 4.36 M/mm3 (4.20-5.40); Red Cell Distribution Width-SD 48.2 fL; White Blood Count 14.2 K/mm3 (4.8-10.8)
[2025-02-12] MEDS: 0.9 % SODIUM CHLORIDE 1000ML 1,000 ML 999 ML IV (16:06)
[2025-02-12 16:20] LABS: Alanine Aminotransferase 28 U/L (12-78); Albumin Level 3.6 g/dl (3.5-5.0); Albumin/Globulin Ratio 1.1 (1.1-1.8); Alkaline Phosphatase 63 U/L (38-126); Anion Gap 10.7 mEq/L (5-15); Aspartate Amino Transferase 33 U/L (14-36); Bilirubin,Total 0.4 mg/dl (0.2-1.3); Blood Urea Nitrogen 11 mg/dl (7-17); Calcium 9.6 mg/dl (8.4-10.2); Carbon Dioxide 27 mmol/L (22.0-30.0); Chloride 103 mmol/L (98-107); Creatinine Clearance Estimated 35 mL/min (50-200); Creatinine,Serum 0.80 mg/dl (0.52-1.04); Estimated Glomerular Filt Rate 71 ml/min (>60); GFR (African American) 86 ML/MIN (>60); Globulin 3.4 g/dL (1.3-3.2); Glucose 154 mg/dl (74-100); Potassium 3.7 mmoL/L (3.5-5.1); Sodium 137 mmol/L (136-145); Total Protein,Serum 7.0 g/dl (6.3-8.2)
[2025-02-12 16:43] LABS: Anisocytosis 1+; Macrocytosis 1+; Poikilocytosis 1+; Polychromasia 1+; Total Cells Counted 100
[2025-02-12 16:44] LABS: Tear Drop Cells 1+
[2025-02-12 17:11] VITALS: BP 120/70; PULSE 89; RESP 19; O2SAT 98
[2025-02-12 17:24] LABS: Microscopic, Urine URINE MICROSCOPIC (MICROSCOPIC)
[2025-02-12 17:32] LABS: Bilirubin,Urine Negative (Negative); Color,Urine YELLOW (Yellow); Glucose,Urine (UA) Negative (Negative); Ketones,Urine Negative (Negative); Leukocyte Esterase,Urine 1+ (Negative); PH,Urine 6.0 (5.0-8.5); Protein,Urine TRACE (Negative); Specific Gravity, Urine 1.025 (1.005-1.030); Urobilinogen,Urine 0.2 EU/dl (0.2)
[2025-02-12 18:09] LABS: Bacteria,Urine 2+ /lpf
[2025-02-12 18:20] VITALS: BP 143/77; PULSE 82; RESP 20; TEMP 37.1; O2SAT 97
[2025-02-12] MEDS: NITROFURANTOIN 100MG CAPSULE 100 MG PO (18:20)
== END 2025-02-12 18:21 | disposition home or self-care (01) ==
PROVIDERS: Physician Assistant; Emergency Provider Student in an Organized Health Care Education/Training Program; PCP Family Medicine
DX: I95.9 Hypotension, unspecified (principal); N39.0 Urinary tract infection, site not specified; I10 Essential (primary) hypertension; Z87.891 Personal history of nicotine dependence
CPT/HCPCS: 80053; 81001; 85007; 85025; 85027; 87086; 96360; 99284; J7030

== ENCOUNTER 2025-02-22 13:01 | Outpatient (CLI) | payer MEDICARE, SELFPAY ==
--- OUTSIDE RECORDS SUMMARY | 2025-02-10 10:15 | XMS_ITS | Encounter Summary ---
Author Organization [facility] Address [address] [place] [address] Care Team Providers Care Umbrella Supervisor Name Role Phone Loy Cruz MD Primary Care Provider [phone] Reason for Referral * Consultation (Routine) - Authorized Specialty Diagnoses / Procedures Referred By Contac t Referred To Contact Diagnoses Atherosclerosis of [place] coronary artery of [place] heart without angina pectoris Hernandez Arzate MD [address] [place] [phone] Phone: tel: fax: Referral ID Status Reason Start Date Expiration Date V isits Requested Visits Authorized [id number] Authorized 02/10/2025 08/12/2026 1 1 Reason for Visit * Reason Comments New Patient * Consultation (Routine) - Closed Specialty Diagnoses / Procedures Referred By Contac t Referred To Contact Cardiology Diagnoses Atypical angina Nicole Lake, CARBON SETTER [address] [facility] [address], [place] [address] Phone: tel: fax: Referral ID Status Reason Start Date Expiration Date V isits Requested Visits Authorized [id number] Closed Specialty Services Required 12/31/2024 07/02/2026 1 1 Encounter Details Date Type Department Care Team (Latest Contact Info) Description 02/10/2025 10:15 AM EDT Office Visit [facility] [place] [facility] [address] [facility] [place] [address] Hernandez Arzate MD [address] [place] [phone] Atherosclerosis of [place] coronary artery of [place] heart without angina pectoris (Primary Dx) 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 Tobacco Use Types Packs/Day Years Used Date Smoking Tobacco: Former Cigarettes 1 41.6 S tarted: 1983 Passive Smoke Exposure: Current Smokeless Tobacco: Never Alcohol Use Standard Drinks/Week Comments Not Currently 0 (1 standard drink = 0.6 oz pur e alcohol) PHQ-2 Answer Date Recorded Patient Health Questionnaire-2 Score 0 02/10/2025 PHQ-9 Answer Date Recorded Patient Health Questionnaire-9 Score 0 02/10/2025 Comments No Sex and Gender Information Value Date Recorded Sex Assigned at Not on file Legal Sex Female 7:41 PM EDT Gender Identity Not on file Sexual Orientation Not on file documented as of this encounter Last Filed Vital Signs Vital Sign Reading Time Taken Comments Blood Pressure 137/85 02/10/2025 10:41 AM EDT Pulse 73 02/10/2025 10:29 AM EDT Temperature - - Respiratory Rate - - Oxygen Saturation 98% 02/10/2025 10:29 AM EDT Inhaled Oxygen Concentration - - Weight 42 kg (92 lb 9.5 oz) 02/10/2025 10:29 AM EDT Height 149.9 cm (4' 11 ) 02/10/2025 10:29 AM EDT Body Mass Index 18.7 02/10/2025 10:29 AM EDT documented in this encounter Functional Status * Over the past 2 weeks, how often have you been bothered by any of the following problems? Question Answer Date of Assessment Author Little interest or pleasure in doing things Not at all 02/10/2025 10:29 AM DAYANNAT Julianna Emanuel Feeling down, depressed, or hopeless Not at all 02/10/2025 10:29 AM EDT Julianna Emanuel Patient Health Questionnaire -2 Score 0 02/10/2025 10:29 AM EDT Julianna Emanuel * Question Answer Date of Assessment Author Trouble falling or staying asleep, or sleeping too much Not at all 02/10/2025 10:29 AM EDT Julianna Emanuel Feeling tired or having beti le energy Not at all 02/10/2025 10:29 AM Julianna Aponte Poor appetite or overeating Not at all 02/10/2025 10 :29 AM Julianna Aponte Feeling bad about yourself - or that you are a failure or have let yourself or your family down Not at all 02/10/2025 10:29 AM Julianna Aopnte Trouble concentrating on things, such as reading the newspaper or watching television Not at all 02/10/2025 10:29 AM Julianna Aponte Moving or speaking so slowly that other people could have noticed? Or the opposite - being so fidgety or restless that you have been moving around a lot more than usual. Not at all 02/10/2025 10:29 AM Julianna Aponte Thoughts that you would be better off or hurting yourself in some way Not at all 02/10/2025 10:29 AM Corina Aponte Patient Health Questionnaire -9 Score 0 02/10/2025 10:29 AM Julianna Aponte * If you checked off any problems on this questionnaire so far, Question Answer Date of Assessment Author How difficult have these problems made it for you to do your work, take care of things at home, or get along with other people? Not difficult at all 02/10/2025 10:29 AM Corina Aponte documented as of this encounter Miscellaneous Notes * Progress Notes - Bela Goss APRN - 02/10/2025 10:15 AM EDT Images from the original note were not included. Cardiology Clinic Note Date of Visit 02/10/25 Patient Brisa Mclean [address] [place] [address] Referring Provider Nicole Lake APRN PCP Loy Cruz MD Chief complaint: CAD/atypical chest pain SUBJECTIVE History of Present Illness Today Dr. Arzate and I saw Brisa Mclean, a 69 y.o. female at [facility] [place] [facility] [place] for consultation of CAD/atypical chest pain at the request of Nicole Lake APRN. PMH is significant for coronary atherosclerosis (per CCTA), HTN, COPD and history of tobacco abuse. Ms. Mclean reports that she is very active around her home and outdoors and has not experienced chest pain or progressive dyspnea. She has baseline shortness of breath related to COPD. 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 She denies palpitations, syncope or PND. She was prescribed aspirin but has not started it yet. TTE 12/2024: EF 55%, no VHD CCTA 12/2024: Total calcium score 75. Moderate (50-70%) disease in p/mLAD. Non- obstructive disease in RCA and Cx. Problem List Problem List[1] Past 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 Past 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[2] Past Surgical History Surgical History[3] Family History Family History[4] 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[5] Current Medications Current Medications[6] Allergies Allergies[7] Review of Systems 14 point ROS negative except as listed in HPI. OBJECTIVE Vitals Visit Vitals BP 137/85 Pulse 73 Ht 1.499 m (4' 11 ) Wt 42 kg (92 lb 9.5 oz) SpO2 98% BMI 18.70 kg/m?? Physical Exam Physical Exam Vitals reviewed. Constitutional: General: She is not in acute distress. HENT: Head: Normocephalic. Neck: Vascular: No carotid bruit. Cardiovascular: Rate and Rhythm: Normal rate and regular rhythm. Pulses: Normal pulses. Heart sounds: S1 normal and S2 normal. No murmur heard. No gallop. Pulmonary: Effort: Pulmonary effort is normal. No respiratory distress. Breath sounds: Decreased breath sounds present. Musculoskeletal: Right lower leg: No edema. Left lower leg: No edema. Skin: General: Skin is warm and dry. Neurological: Mental Status: She is alert and oriented to person, place, and time. Psychiatric: Mood and Affect: Mood normal. Behavior: Behavior normal. Diagnostics No echocardiogram results found for the past 12 months Lab Review No results found for: WBC , RBC , HGB , HCT , LABPLAT No results found for: GLUCOSE , BUN , CREATININE , NA , K , CL , HCO3 No results found for: AST , ALT , ALKPHOS No results found for: CHOL , LDL , LDLCALC , HDL , TRIG No results found for: HGBA1C No results found for: TSH , FREET4 The ASCVD Risk score (Lucien DK, et al., 2019) failed to calculate for the following reasons: Cannot find a previous HDL lab Cannot find a previous total cholesterol lab ASSESSMENT AND PLAN Visit Diagnoses and Orders 1. Atherosclerosis of [place] coronary artery of [place] heart without angina pectoris Lipid panel, Lipid panel, Follow Up Cardiology Discussion Summary Coronary atherosclerosis - Per CCTA; total calcium score 75 with moderate disease in p/mLAD - Asymptomatic - Dr. Arzate personally reviewed imaging and does not feel that cath or additional testing is indicated at present as she is asymptomatic - Currently on rosuvastatin 20mg - Instructed patient to start ASA 81mg - Obtain lipid panel today to ensure LDL at goal - Discussed importance of aggressive RF reduction including daily physical activity with goal of 30minutes/day, Mediterranean diet with limitation of saturated/animal fats, good BP control and strict medication compliance. HTN - Home readings vary, but needs to obtain appropriately sized cuff (small cuff) - Continue lisinopril 10mg FOLLOW UP: 1 year A total time of 32 minutes was spent by MD and LORRI addressing the current illness, reviewing records (prior imaging, lab work, etc), formulating a plan and documenting. The patient is agreeable to the plan and all pertinent questions were answered. The patient's cardiac evaluation was discussed with Dr. Arzate who agrees with the plan. Nicole Lake, CARBON SETTER, thank you for the consultation. Please do not hesitate to contact us with any questions. Jesika Goss, CARBON SETTER [1] Patient Active Problem List Diagnosis Abdominal pain Abnormal abdominal x-ray Acute viral syndrome Anemia Anxiety Arm numbness left Arthritis Bronchitis Cervical disc disorder Spinal stenosis of cervical region Chest pain, pleuritic Chronic diarrhea Chronic obstructive pulmonary disease (CMS/HCC) Colitis Collagenous colitis Microscopic colitis Dyspnea Exposure to COVID-19 virus Fatigue Hard of hearing Headache Hemorrhoids Neck pain Itching Joint pain Leukocytosis Low back pain Lumbar radiculopathy Mass of upper lobe of right lung Migraine headache Muscle spasm Muscle weakness Numbness and tingling in left hand Osteoporosis Otitis media of right ear Otitis media Pain of right lower extremity Paresthesia Pneumonia Polyp of cecum Sinusitis Skin problem Strep sore throat Syncope and collapse Vaccine counseling Viral upper respiratory illness Vitamin D deficiency [2] Past 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: Diagnosis Date Collagenous colitis Collagenous colitis [3] Past Surgical History: Procedure Laterality Date CERVICAL FUSION TUBAL LIGATION [4] Family History Problem Relation Name Age of Onset Breast cancer Mother Heart failure Father Other (bypass) Father Breast cancer Sister Other (gall bladder cancer) Sister [5] 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 Tobacco Use Smoking status: Former Current packs/day: 1.00 Average packs/day: 1 pack/day for 41.6 years (41.6 ttl pk-yrs) Types: Cigarettes Start date: 1983 Passive exposure: Current Smokeless tobacco: Never Vaping Use Vaping status: Never Used Substance Use Topics Alcohol use: Not Currently Drug use: Never [6] Current Outpatient Medications: albuterol 108 (90 Base) MCG/ACT inhaler, INHALE TWO PUFFS BY MOUTH EVERY 6 HOURS NEEDED FOR SHORTNESS OF BREATH OR wheezing, Disp: , Rfl: Anoro Ellipta 62.5-25 MCG/ACT aerosol powder aerosol powder, Inhale 1 Inhalation., Disp: , Rfl: budesonide EC (Entocort EC) 3 MG 24 hr capsule, Take 3 capsules by mouth daily., Disp: , Rfl: cholecalciferol (Vitamin D-3) 50 MCG (2000 UT) tablet, Take 1 tablet (2,000 Units) by mouth 1 (one)time each day., Disp: , Rfl: cyclobenzaprine (Flexeril) 10 MG tablet, TAKE ONE TABLET BY MOUTH EVERY DAY AT BEDTIME MAY CAUSE DROWSINESS, Disp: , Rfl: lisinopril 10 MG tablet, Take 1 tablet by mouth daily., Disp: , Rfl: oxyCODONE-acetaminophen (Percocet) 5-325 MG tablet, TAKE ONE TABLET BY MOUTH TWICE DAILY NEEDED FOR PAIN MAY CAUSE DROWSINESS, Disp: , Rfl: rosuvastatin (Crestor) 20 MG tablet, Take 1 tablet by mouth daily., Disp: , Rfl: coenzyme Q-10 10 MG capsule, coenzyme Q10 200mg qd (Patient not taking: Reported on 02/10/2025), Disp: , Rfl: [7] Allergies Allergen Reactions Methocarbamol Hives and Other - please document in the comment field Levofloxacin Nausea And Vomiting and Vomiting Abdominal pain Methylprednisolone Palpitations Penicillins Other - please document in the comment field documented in this encounter Plan of Treatment Upcoming Encounters Date Type Department Care Team (Late st Contact Info) Description 03/03/2025 3:30 PM EDT Office Visit [facility] [address] [place] [address] Rita Amezcua MD [address] [place] [address] 02/16/2026 10:00 AM EDT Office Visit [facility] [place] [address] [place] [address] Hernandez Arzate MD [address] [place] [address] Scheduled Referrals Name Type Priority Associated Diagnoses Order Schedule Follow Up Cardiology Outpatient Referral Routine Atherosclerosis of [place] coronary artery of [place] heart without angina pectoris Expected: 02/10/2026, Expires: 08/13/2026 documented as of this encounter Procedures Procedure Name Priority Date/Time Associated Diagnosis Comments LIPID PROFILE, PLASMA Routine 02/10/2025 11:05 AM EDT Atherosclerosis of [place] coronary artery of [place] heart without angina pectoris documented in this encounter Results * Lipid panel (02/10/2025 11:05 AM EDT) Cholesterol, Plasma 172 <200 mg/dL 02/10/2025 12:10 PM EDT [facility] Comment: Cholesterol Reference Range (age >17 years): Desirable <200 mg/dL Borderline 200 to 239 mg/dL Undesirable >239 mg/dL HDL 75 >=50 mg/dL 02/10/2025 12:10 PM EDT [facility] Comment: HDL Cholesterol Reference Ranges (age >17 years): Female, acceptable > or = 50 mg/dL Male, acceptable > or = 40 mg/dL Triglycerides, Plasma 117 <150 mg/dL 02/10/2025 12:10 PM EDT [facility] Comment: Triglyceride Reference Range (age >17 years): Desirable: <150 mg/dL Borderline high: 150 to 199 mg/dL High: 200 to 499 mg/dL Very high: >499 mg/dL Increased risk of pancreatitis: >1000 mg/dL Cholesterol/HDL Ratio 2 02/10/2025 12:10 PM EDT [facility] LDL, Calculated 77 <100 mg/dL 12:10 PM EDT [facility] Comment: LDL Cholesterol Reference Range (age >17 years): Optimal: <100 mg/dL Near or above optimal: 100 - 129 mg/dL Borderline high: 130 - 159 mg/dL High: 160 - 189 mg/dL Very high: >189 mg/dL LDL Cholesterol Reference Range (age <18 years): Desirable: <110 mg/dL Borderline: 110 - 129 mg/dL Undesirable: >130 mg/dL LDL Cholesterol is calculated using the Tello/NIH equation. Fasting greater than or equal to 12 hours? No 02/10/2025 12:10 PM EDT [facility] Blood Venous blood specimen / Unknown Venipuncture / Unknown 02/10/2025 11:05 AM EDT 02/10/2025 11:26 AM EDT us Bela Goss CARBON SETTER LAB BLOOD ORDERABLES Final Re sult [facility] [address] [place] [address] documented in this encounter Visit Diagnoses Diagnosis Atherosclerosis of [place] coronary artery of [place] heart without angina pectoris- Primary documented in this encounter Additional Health Concerns Assessment Noted Time PHQ-9 Depression Total Score: 0 02/11/20 25 10:29 AM EDT A fall risk assessment has been complete d for the patient 02/10/2025 10:29 AM EDT A Body Mass Index follow-up plan has been documented for the patient 02/10/2025 11:22 AM EDT documented as of this encounter Care Teams Umbrella Supervisor Relationship Specialty Start Date End Date Loy Cruz MD PCP - General 08/31/22 documented as of this encounter
--- OUTSIDE RECORDS SUMMARY | 2025-02-22 13:04 | XMS_ITS ---
Author Organization Unknown TREATMENT PLAN [facility] Start Date Provider Encounter for Check-up [id number] [facility]
--- OUTSIDE RECORDS SUMMARY | 2025-02-22 13:04 | XMS_ITS | Encounter Summary ---
Author Organization [facility] Address [address] [place] [address] Care Team Providers Care Printer Helper Name Role Phone Loy Cruz MD Primary Care Provider [phone] Encounter Details Date Type Department Care Team (Late st Contact Info) Description 02/04/2025 Telephone [facility] [place] [address] [place] [address] [place] [address] 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 Tobacco Use Types Packs/Day Years [...] EDT Patient Name: Brisa Mclean :1955 Date:[facility]/04/[facility] Referring Physician:Nicole [place] Education/ Information provided: This Nurse Liaison spoke with Brisa Mclean prior to an appointment on 02/10/2025 Explained nurse liaison services offered through [facility]. Discussed appointment necessity, and subspecialty clinic the pt will be seeing. Patient verbalizes understanding. Patient denied any barriersto arriving to clinic visit. All questions answered. Provided patient with liaison contact information and encouraged patient to call with any questions, concerns or assistance needs. Will follow up with patient after appointment. Kaia Jean [facility] Nurse Liaison [phone] documented in this encounter Plan of Treatment Upcoming Encounters Date Type Department Care Team (Late st Contact Info) Description 03/03/2025 3:30 PM EDT Office Visit [facility] [address] [place] [address] Rita Amezcua MD [address] [place] [address] 02/16/2026 10:00 AM EDT Office Visit [facility] [place] [address] [place] [address] Hernandez Arzate MD [address] [place] [address] documented as of this encounter Visit Diagnoses Not on filedocumented in this encounter Additional Health Concerns Assessment Noted Time A Body Mass Index follow-up plan has been documented for the patient 04/07/2024 8:13 AM EDT documented as of this encounter Care Teams Printer Helper Relationship Specialty Start Date End Date Loy Cruz MD PCP - General 08/31/22 documented as of this encounter
--- OUTSIDE RECORDS SUMMARY | 2025-02-22 13:05 | XMS_ITS | Encounter Summary ---
Author Organization [employer] ([place], [place], [place], [place]) Address [address] [place] [address] Care Team Providers Care Boiler Service Technician Name Role Phone Loy Cruz MD Primary Care Provider [phone] Encounter Details Date Type Department Care Team (Late st Contact Info) Description 10/06/2020 Transcribed Document [facility] [place] [facility] [place] [address] ProviderMarly MD [address] [place] [address] 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 Tobacco Use Types [...] Ramsay MD - 10/06/2020 4:36 PM CDT [address] [address] BRISA MCLEAN :1955 Visit Time:10/06/2020 Your Visit Summary Your Care Team Admitting Physician - KINZA BRENNER MD-OBG Attending Physician - KINZA BRENNER MD-OBG Primary Care Physician - VINITA HARDIN (REF), -[facility] Referring Physician - KINZA BRENNER MD-OBG [...] your dental hygiene while using zoledronic acid. [place] and floss your teeth regularly. If you [...] may report side effects to FDA at 3-943-VSU-0450. What other drugs will affect zoledronic acid? Zoledronic acid can harm your kidneys, especially if you also use certain medicines for infections, cancer, osteoporosis, organ transplant rejection, bowel disorders, or pain or arthritis (including aspirin, Tylenol, Advil, and Aleve). Other drugs may affect zoledronic acid, including prescription and dyfh-tmp-avmugul medicines, vitamins, and herbal products. Tell your [...] to ensure that the information provided by [employer] ('[employer]') is accurate, up-to-date, and complete, but no guarantee is made to that effect. Drug information contained herein may be time sensitive. [employer] information has been compiled for use by healthcare practitioners and consumers in the [place] and therefore [employer] does not warrant that uses outside of the [place] are appropriate, unless specifically indicated otherwise. [employer] drug information does not endorse drugs, diagnose patients or recommend therapy. [employer] drug information is an informational resource designed [...] effective or appropriate for any given patient. [employer] does not assume any responsibility for any aspect of healthcare administered with the aid of information [employer] provides. The information contained herein is not intended to cover all possible uses, directions, precautions, warnings, drug interactions, allergic reactions, or adverse effects. If you have questions about the drugs you are taking, check with your doctor, nurse or pharmacist. Copyright 6548-6492 [employer]. Version: 17.. Revision Date: 01/20/2020. calcium carbonate (YOMI amcedo) What is the most important information I [...] may report side effects to FDA at 3-174-MGE-7782. What other drugs can affect calcium carbonate? Calcium can make it harder for your body to absorb certain medicines. If you take other medications, take them at least 2 hours before or 4 or 6 hours after you take calcium carbonate. Other drugs may interact with calcium carbonate, including prescription and [id number]-[id number] medicines, vitamins, and herbal products. Tell your [...] to ensure that the information provided by [employer]. ('Multum') is accurate, up-to-date, and complete, but no guarantee is made to that effect. Drug information contained herein may be time sensitive. [employer] information has been compiled for use by healthcare practitioners and consumers in the [place] and therefore [employer] does not warrant that uses outside of the [place] are appropriate, unless specifically indicated otherwise. [employer] drug information does not endorse drugs, diagnose patients or recommend therapy. [employer] drug information is an informational resource designed [...] effective or appropriate for any given patient. [employer] does not assume any responsibility for any aspect of healthcare administered with the aid of information [employer] provides. The information contained herein is not intended to cover all possible uses, directions, precautions, warnings, drug interactions, allergic reactions, or adverse effects. If you have questions about the drugs you are taking, check with your doctor, nurse or pharmacist. Copyright 2745-1163 [employer]. Version: 7.01. Revision Date: 07/03/2017. Emergency Awareness [...] Assistance with quitting is available by contacting 6-094-VNSHWellbeNOW. This is a free resource providing counseling, [...] was given the opportunity to ask questions. Patient/Telegraphic Typewriter Operator Chief Name: Patient/Telegraphic Typewriter Operator Chief Signature: Relationship to Patient: Clinician/Hospital Telegraphic Typewriter Operator Chief Signature: Date: Electronically signed by Marivel, [facility] Conversion Railcar Foreman Cerner at 11/07/2022 11:56 AM CDT documented in this encounter Plan of Treatment Not on file documented as of this encounter Visit Diagnoses Not on filedocumented in this encounter Care Teams Boiler Service Technician Relationship Specialty Start Date End Date Loy Cruz MD [address] [place] [address] PCP - General Family Medicine 04/18/23 documented as of this encounter
--- OUTSIDE RECORDS SUMMARY | 2025-02-22 13:05 | XMS_ITS | Encounter Summary ---
Author Organization [facility] Address [address] [place] [address] Care Team Providers Care Processing Manager Name Role Phone Loy Cruz MD Primary Care Provider [phone] Encounter Details Date Type Department Care Team [...] Description 03/03/2025 3:30 PM EDT Office Visit [facility] [address] [place] [address] Rita Amezcua MD [address] [facility] [address] [place] [address] 02/16/2026 10:00 AM EDT Office Visit [facility] [place] [address] [facility] [place] [address] Hernandez Arzate MD [address] [place] [address] documented as of this encounter Visit Diagnoses [...] documented as of this encounter Care Teams Processing Manager Relationship Specialty Start Date End Date Loy Cruz MD PCP - General 08/31/22 documented as of this encounter
--- OUTSIDE RECORDS SUMMARY | 2025-02-22 13:05 | XMS_ITS | Referral Summary ---
Author Organization [employer] ([place], [place], [place], [place]) Address [address] [place] [address] Care Team Providers Care Breakfast Bar Attendant Name Role Phone Loy Cruz MD Primary Care Provider [phone] Allergies Active Allergy Reactions Criticality Noted Date [...] Date Toño rded Speak language other than Lebanese at home Not on file 08/04/2023 Want [...] FACTORS: Estrogen deficiency, tobacco usage COMPARISON STUDY: [facility] 2017 FINDINGS: Bone densitometry was performed using a [employer] QDR series machine. Sites measured included the [...] FACTORS: Estrogen deficiency, tobacco usage COMPARISON STUDY: [facility] 2016 FINDINGS: Bone densitometry was performed using a [employer] QDR series machine. Sites measured included the [...] Most Recently Relevant to Health Maintenance Insurance [facility] MAP Care Teams Breakfast Bar Attendant Relationship Specialty Start Date End Date Loy Cruz MD [address] [place] [address] PCP - General Family Medicine 04/18/23
--- OUTSIDE RECORDS SUMMARY | 2025-02-22 13:05 | XMS_ITS | Clinical Summary ---
Author Organization [employer] ([place], [place], [place], [place]) Address [address] [place] [address] Care Team Providers Care Timber Cutter Name Role Phone Loy Cruz MD Primary Care Provider [phone] Allergies Active Allergy Reactions Criticality Noted Date [...] Date Toño rded Speak language other than Chadian at home Not on file 08/04/2023 Want [...] FACTORS: Estrogen deficiency, tobacco usage COMPARISON STUDY: [facility] 2016 FINDINGS: Bone densitometry was performed using a [employer] QDR series machine. Sites measured included the [...] FACTORS: Estrogen deficiency, tobacco usage COMPARISON STUDY: [facility] 2017 FINDINGS: Bone densitometry was performed using a [employer] QDR series machine. Sites measured included the [...] 2 years. Left hip Zeb Varela MD [facility] DXA ORDERABLES Final Result from Last 3 Months or Most Recently Relevant to Health Maintenance Insurance [facility] [employer] ACCESS PPO MAP Care Teams Timber Cutter Relationship Specialty Start Date End Date Loy Cruz MD [address] [place] [address] PCP - General Family Medicine 04/18/23
--- OUTSIDE RECORDS SUMMARY | 2025-02-22 13:05 | XMS_ITS | Encounter Summary ---
Author Organization [facility] Address [address] [place] [address] Care Team Providers Care Press Clipper Name Role Phone Loy Cruz MD Primary Care Provider [phone] Encounter Details Date Type Department Care Team (Late st Contact Info) Description 08/10/2024 Orders Only External Location [address] [place] [address] Provider, External 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 Tobacco [...] Description 03/03/2025 3:30 PM EDT Office Visit [facility] [address] [place] [address] Rita Amezcua MD [address] [facility] [address] [place] [address] 02/16/2026 10:00 AM EDT Office Visit [facility] [place] [address] [facility] [place] [address] Hernandez Arzate MD [address] [place] [address] documented as of this encounter [...] documented as of this encounter Care Teams Press Clipper Relationship Specialty Start Date End Date Loy Cruz MD PCP - General 08/31/22 documented as of this encounter
--- OUTSIDE RECORDS SUMMARY | 2025-02-22 13:05 | XMS_ITS | Encounter Summary ---
Author Organization [facility] Address [address] [place] [address] Care Team Providers Care Tape Recording Machine Operator Name Role Phone Loy Cruz MD Primary Care Provider [phone] Encounter Details Date Type Department Care Team (Late st Contact Info) Description 08/02/2024 Orders Only External Location [address] [place] [address] Provider, External 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 Tobacco [...] Description 03/03/2025 3:30 PM EDT Office Visit [facility] [address] [place] [address] Rita Amezcua MD [address] [facility] [address] [place] [address] 02/16/2026 10:00 AM EDT Office Visit [facility] [place] [address] [facility] [place] [address] Hernandez Arzate MD [address] [place] [address] documented as of this encounter [...] documented as of this encounter Care Teams Tape Recording Machine Operator Relationship Specialty Start Date End Date Loy Cruz MD PCP - General 08/31/22 documented as of this encounter
--- OUTSIDE RECORDS SUMMARY | 2025-02-22 13:05 | XMS_ITS | Clinical Summary ---
Author Organization [facility] Address [address] [place] [address] Care Team Providers Care Recreation Officer Name Role Phone Unavailable Primary Care Provider [...]
--- OUTSIDE RECORDS SUMMARY | 2025-02-22 13:05 | XMS_ITS | Encounter Summary ---
Author Organization [employer] ([place], [place], [place], [place]) Address [address] [place] [address] Care Team Providers Care Forest Technology Professor Name Role Phone Loy Cruz MD Primary Care Provider [phone] Encounter Details Date Type Department Care Team (Late st Contact Info) Description 10/06/2020 Transcribed Document [facility] [address] [place] [address] ProviderMarly MD [address] [place] [address] 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 Tobacco Use Types [...] on filedocumented in this encounter Care Teams Forest Technology Professor Relationship Specialty Start Date End Date Loy Cruz MD [address] [place] [address] PCP - General Family Medicine 04/18/23 documented as of this encounter
--- OUTSIDE RECORDS SUMMARY | 2025-02-22 13:05 | XMS_ITS | Encounter Summary ---
Author Organization [facility] Address [address] [place] [address] Care Team Providers Care Inspector Balance Bridge Name Role Phone Loy Cruz MD Primary Care Provider [phone] Encounter Details Date Type Department Care Team (Late st Contact Info) Description 02/11/2025 Telephone [facility] [place] [address] [place] [address] [place] [address] 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 Tobacco Use Types Packs/Day Years [...] Seen: Cardiology/Dr. Arzate Future scheduling/testing needs: This [facility] Nurse Liaison left voicemail for Brisa Mclean following their appointment on 02/10/2025 Liaison contact information provided. Will follow up in 3 months to ensure continuum of care. Kaia Jean [facility] Nurse Liaison [phone] documented in this encounter Plan of Treatment Upcoming Encounters Date Type Department Care Team (Late st Contact Info) Description 03/03/2025 3:30 PM EDT Office Visit [facility] [address] [place] [address] Rita Amezcua MD [address] [place] [address] 02/16/2026 10:00 AM EDT Office Visit [facility] [place] [address] [place] [address] Hernandez Arzate MD [address] [place] [address] documented as of this encounter [...] documented as of this encounter Care Teams Inspector Balance Bridge Relationship Specialty Start Date End Date Loy Cruz MD PCP - General 08/31/22 documented as of this encounter
--- OUTSIDE RECORDS SUMMARY | 2025-02-22 13:05 | XMS_ITS | Clinical Summary ---
Author Organization [facility] Address [address] [place] [address] Care Team Providers Care Accounting Bookkeeper Name Role Phone Loy Cruz MD Primary Care Provider [phone] Allergies Active Allergy Reactions Criticality Noted Date [...] Encounters Date Type Department Care Team Description 02/16/2025 Telephone [facility] [address] [address] Bela Goss APRN 02/11/2025 Telephone [facility] [address] [address] Kaia Jean 02/10/2025 10:15 AM EDT Office Visit [address] [address] Hernandez Arzate MD Atherosclerosis of [place] coronary artery of [place] heart without angina pectoris (Primary Dx) 02/10/2025 Travel 02/04/2025 Telephone [facility] [address] [address] Kaia Jean from Last 3 Months Immunizations [...] Description 03/03/2025 3:30 PM EDT Office Visit [facility] [address] [place] [address] Rita Amezcua MD [address] [facility] [address] [place] [address] 02/16/2026 10:00 AM EDT Office Visit [facility] [place] [address] [facility] [place] [address] Hernandez Arzate MD [address] [place] [address] Health Maintenance Due Date Last Done Comments [facility]-Hepatitis C Screening 1955 [facility]-Medicare Annual Wellness (AWV) 1955 [facility]-/Child/Adol SDOH Screenings 1955 [facility]- SDOH Screenings 1974 [facility]-Adult SDOH Screenings 1974 CT Colonography 2001 Colonoscopy 2001 FIT-DNA 2001 FIT 2001 FOBT 2001 Sigmoidoscopy 2001 [facility]-Colorectal Cancer Screening 2001 [facility]-Zoster Vaccines (1 of 2) 2006 [facility]-Bone Density Scan 08/05/2020 08/05/2019 [id number] Vaccine ( season) 2024 05/31/2021, 10/26/2020, 09/28/2020 [...] Routine 02/10/2025 11:05 AM EDT Atherosclerosis of [place] coronary artery of [place] heart without angina pectoris MAMMOGRAPHY BREAST SCREENING TOMOSYNTHESIS BILATERAL Routine 11/10/2024 3:03 PM EDT Encounter for screening mammogram for malignant neoplasm of breast from Last 3 Months or Most Recently Relevant to Health Maintenance Results * Lipid panel (02/10/2025 11:05 AM EDT) Cholesterol, Plasma 172 <200 mg/dL 02/10/2025 12:10 PM EDT [facility] Comment: Cholesterol Reference Range (age >17 years): Desirable <200 mg/dL Borderline 200 to 239 mg/dL Undesirable >239 mg/dL HDL 75 >=50 mg/dL 02/10/2025 12:10 PM EDT [facility] Comment: HDL Cholesterol Reference Ranges (age >17 years): Female, acceptable > or = 50 mg/dL Male, acceptable > or = 40 mg/dL Triglycerides, Plasma 117 <150 mg/dL 02/10/2025 12:10 PM EDT [facility] Comment: Triglyceride Reference Range (age >17 years): Desirable: <150 mg/dL Borderline high: 150 to 199 mg/dL High: 200 to 499 mg/dL Very high: >499 mg/dL Increased risk of pancreatitis: >1000 mg/dL Cholesterol/HDL Ratio 2 02/10/2025 12:10 PM EDT [facility] LDL, Calculated 77 <100 mg/dL 12:10 PM EDT [facility] Comment: LDL Cholesterol Reference Range [...] 12 hours? No 02/10/2025 12:10 PM EDT [facility] Blood Venous blood specimen / Unknown Venipuncture / Unknown 02/10/2025 11:05 AM EDT 02/10/2025 11:26 AM EDT us Bela Richard Wolfgang [facility] BLOOD ORDERABLES Final Re sult [facility] [place] [address] * Mammography Breast Screening Tomosynthesis Bilateral (11/10/2024 [...] 07/24/2021 Mammography Breast Screening Tomosynthesis Bilateral at [facility] 08/31/2022 Mammography Breast Screening Tomosynthesis Bilateral at [facility] 09/26/2023 Mammography Breast Screening Tomosynthesis Bilateral at [facility] BREAST COMPOSITION: The breasts are heterogeneously dense, which may obscure small masses. FINDINGS: There are no suspicious masses, calcifications, or areas of architectural distortion. Loy Cruz MD IMG BI PROCEDURES Final Result from Last 3 Months or Most Recently Relevant to Health Maintenance Insurance [facility] MEDICARE Care Teams Accounting Bookkeeper Relationship Specialty Start Date End Date Loy Cruz MD PCP - General 08/31/22
--- OUTSIDE RECORDS SUMMARY | 2025-02-22 13:05 | XMS_ITS | Encounter Summary ---
Author Organization [employer] ([place], [place], [place], [place]) Address [address] [place] [address] Care Team Providers Care Client Services Specialist Name Role Phone Loy Cruz MD Primary Care Provider [phone] Encounter Details Date Type Department Care Team (Late st Contact Info) Description 10/06/2020 Transcribed Document [facility] [place] [address] [place] [address] ProviderMarly MD [address] [place] [address] 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 Tobacco Use Types [...] Source : Chart Height Entry Format : [place] Height, Feet : 5 ft(Converted to: 152 cm, 60 Inch) Height, Inches : 0 Inch(Converted to: 0 ft 0 Inch, 0.00 cm) Clinical Height : 152.4 cm Weight Source : Standing scale Weight Entry Format : [place] Clinical Dosing Weight : 43.18 kg Weight, Pounds : 95 lb Body Surface Area (BSA) : 1.36 m2 Body Mass Index : 18.6 kg/m2 (LOW) [place] Body Weight : 45 kg JOSEFINA CORRIGAN [...] JOSEFINA CORRIGAN RN - 10/06/2020 16:03 EDT [place] Suicide Severity Rating Scale (C-SSRS) CSSRS Past [...] Scale Risk Level : 0-24 Low Risk [place] Fall Interventions : Adequate lighting, Call device [...] on filedocumented in this encounter Care Teams Client Services Specialist Relationship Specialty Start Date End Date Loy Cruz MD [address] [place] [address] PCP - General Family Medicine 04/18/23 documented as of this encounter
--- OUTSIDE RECORDS SUMMARY | 2025-02-22 13:05 | XMS_ITS | Encounter Summary ---
Author Organization [facility] Address [address] [place] [address] Care Team Providers Care Color Repairer Name Role Phone Loy Cruz MD Primary Care Provider [phone] Encounter Details Date Type Department Care Team (Late st Contact Info) Description 02/16/2025 Telephone [facility] [place] Luis [address] [facility] [place] [address] Bela Goss, CLINT [address] [place] [address] 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 Tobacco Use Types Packs/Day Years [...] encounter Miscellaneous Notes * Telephone Encounter - Bela Goss APRN - 02/16/2025 10:52 AM EDT Called patient to review recent lipid panel showing LDL 77. Currently on rosuvastatin 20mg daily. CCTA showing total calcium score 75. Will repeat lipid panel with next OV and if it has worsened, will increase rosuvastatin to 40mg. Encouraged plant forward diet, adequate fiber. Patient in agreementwith plan. Jesika Goss APRN documented in this encounter Plan of Treatment Upcoming Encounters Date Type Department Care Team (Late st Contact Info) Description 03/03/2025 3:30 PM EDT Office Visit [facility] [address] [place] [address] Rita Amezcua MD [address] [place] [address] 02/16/2026 10:00 AM EDT Office Visit [facility] [place] [address] [place] [address] Hernandez Arzate MD [address] [place] [address] documented as of this encounter [...] documented as of this encounter Care Teams Color Repairer Relationship Specialty Start Date End Date Loy Cruz MD PCP - General 08/31/22 documented as of this encounter
--- NOTE | 2025-02-22 13:45 | XR_ITS ---
FINAL REPORT CLINICAL HISTORY: Bone Density Scan COMPARISON: None FINDINGS: Using L1-4, the bone mineral density of the spine is 0.816 g/cm2, corresponding to T-score of -1.7, consistent with osteopenia. Previously was 0.828 with a T-score of -2.0. Using the left hip, the bone mineral density of the total hip is 0.557 g/cm2, corresponding to a T-score of -3.2, consistent with osteoporosis. Previously was 0.546 with a T-score of -3.2. Using the right hip, the bone mineral density of the femoral neck is 0.563 g/cm2, corresponding to a T-score of -2.6, consistent with osteoporosis. Previously was 0.620 with a T-score of-2.6. FRAX not reported because some T-score at or below -2.5. NOTE: T-score: Standard deviation compared with peak bone mass of young adult mean. *Following the recommendations of the International Society of Bone densitometry, classification of hip BMD is based on the lower of two T-scores; total hip or femoral neck. IMPRESSION: Diminished bone mineral density consistent with osteoporosis. Reviewed, Interpreted and Dictated by Andrew Moore MD Transcribed by Arlen Dawson Authenticated and [facility]
--- NOTE | 2025-02-22 14:45 | MR_ITS ---
FINAL REPORT CLINICAL HISTORY: L5 S1 disc impingement, f/u COMPARISON: CT 10/06/2022 FINDINGS: Multiplanar MR imaging of the lumbar spine was performed without and with contrast. On the sagittal T2-weighted images, abnormal decreased signal is seen at the T12-L1, L1-2, L4-5, and L5-S1 disc levels. There is grade 1 spondylolisthesis of L5 on S1. The vertebrae are normal in height. L1-2: Mild diffuse disc bulge with annular tear. Mild spinal canal compromise. L2-3: No significant canal stenosis or neuroforaminal narrowing is seen. L3-4: Mild diffuse disc bulge. Mild bilateral neural foraminal narrowing. L4-5: Moderate diffuse disc bulge. [id number]-[id number] bilateral neural foraminal narrowing. L5-S1: Moderate diffuse disc bulge. Grade 1 spondylolisthesis. Bilateral facet hypertrophy. Moderate to high-grade left neural foraminal narrowing. There appears to be a left paracentral disc extrusion extending superiorly from the disc space well seen on image 8 of series 3. This does not appear to enhance on as seen on image 8 of series 7. There is moderate to high-grade compromise of the left lateral recess well seen on image 21 of series 5. No abnormal contrast enhancement is identified. IMPRESSION: Left paracentral disc extrusion extending superiorly at L5-S1 with grade 1 spondylolisthesis of L5 on S1 and left neural foraminal narrowing. Reviewed, Interpreted and Dictated by Andrew Moore MD Transcribed by Arlen Dawson Authenticated and [facility]
[2025-02-22] MEDS: SODIUM CHLORIDE 0.9% 10ML SYR (RAD ONLY) 10 ML IV (16:13)
[2025-02-22] MEDS: GADOTERIDOL INJ 10ML SYRINGE 9 ML IV (16:13)
== END 2025-02-22 23:59 | disposition home or self-care (01) ==
LOC: RAD 13:02
PROVIDERS: PCP Family Medicine; Visit Provider Family Medicine
DX: M51.17 Intervertebral disc disorders with radiculopathy, lumbosacral region (principal); M43.17 Spondylolisthesis, lumbosacral region; M99.73 Connective tissue and disc stenosis of intervertebral foramina of lumbar region; M81.0 Age-related osteoporosis without current pathological fracture; M48.8X7 Other specified spondylopathies, lumbosacral region
CPT/HCPCS: 72158; 77080; A9576

== ENCOUNTER 2025-05-26 13:35 | Outpatient (CLI) | payer MEDICARE, SELFPAY ==
--- OUTSIDE RECORDS SUMMARY | 2025-03-31 12:20 | XMS_ITS | Encounter Summary ---
Author Organization Healthcare Address [address] [place] [address] Care Team Providers Care Pharmacy Helper Name Role Phone Loy Cruz MD Primary Care Provider [phone] Encounter Details Date Type Department Care Team (Late Contact Info) Description 03/31/2025 1:20 PM EDT Ancillary Procedure [facility] [address] [place] [address] 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 Tobacco Use Types Packs/Day Years Used Date Smoking Tobacco: Former Cigarettes 1 41.8 S tarted: 1984 Passive Smoke Exposure: Current [...] Department Care Team (Late Contact Info) Description 07/01/2025 2:00 PM EST Office Visit [facility] [address] [place] [address] Pita Hewitt MD [address] [facility] [address] [place] [address] 08/25/2025 1:15 PM EST Office Visit [facility] [address] [place] [address] Rita Amezcua MD [address] [place] [address] 02/16/2026 10:00 AM EDT Office Visit [facility] [address] [place] [address] Hernandez Arzate MD [address] [place] [address] documented as of this encounter Procedures Procedure Name Priority Date/Time Associated Diagnosis Comments OCT, RETINA - OU - BOTH EYES Routine 03/31/2025 1:15 PM EDT Partial retinal vein occlusion, left documented in this encounter Results * OCT, Retina - OU - Both Eyes (03/31/2025 1:15 PM EDT) Anatomical Region Laterality Modality Head Optical Coherenc e Tomography Narrative 04/05/2025 12:25 PM EDT Right eye (OD): ?trace early cystic changes Left eye (OS); trace cysts improved from last visit with Dr. Armendariz us Haley Saxena MD OPHTH TOMOGRAPHY Final R esult documented in this encounter Visit Diagnoses Not on filedocumented in this encounter Additional Health Concerns Assessment Noted Time PHQ-9 Depression Total Score: 0 02/11/20 10:29 AM EDT A fall risk assessment has been complete d for the patient 03/31/2025 1:32 PM EDT A Body Mass Index follow-up plan has been documented for the patient 04/05/2025 12:27 PM EDT documented as of this encounter Care Teams Pharmacy Helper Relationship Specialty Start Date End Date Loy Cruz MD PCP - General 08/31/22 documented as of this encounter
--- OUTSIDE RECORDS SUMMARY | 2025-03-31 12:45 | XMS_ITS | Encounter Summary ---
Author Organization [facility] Address [address] [place] [address] Care Team Providers Care Technology Sales Specialist Name Role Phone Loy Cruz MD Primary Care Provider [phone] Reason for Visit * Reason Comments Blepharitis Eye Pain Encounter Details Date Type Department Care Team (Late st Contact Info) Description 03/31/2025 1:45 PM EDT Office Visit [facility] [address] [place] [address] Rita Amezcua MD [address] [facility] [address] [place] [address] Partial retinal vein occlusion, left (Primary Dx); Age-related nuclear cataract of both eyes; Ocular hypertension, bilateral 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 Tobacco Use Types Packs/Day Years Used Date Smoking Tobacco: Former Cigarettes 1 41.8 S tarted: 1983 Passive Smoke Exposure: Current [...] as of this encounter Miscellaneous Notes * Patient Instructions - Rita Amezcua MD - 03/31/2025 1:45 PM EDT Call or return to clinic with sudden new floaters or worsening in existing floaters, flashes of light, spiderwebs or cobwebs in vision, or curtains coming down in vision. Consider going to the emergency room if you are unable to reach the clinic on the phone. Call [phone] and ask for the party plan sales consultant senior fire protection engineer if it is after hours or a weekend or holiday. * Progress Notes - Haley Saxena MD - 03/31/2025 1:45 PM EDT Images from the original note were not included. Retina Clinic Note CHIEF COMPLAINT Patient presents for Blepharitis and Eye Pain HISTORY OF PRESENT ILLNESS: Brisa Mclean is a 69 y.o. female who presents to the clinic today for: HPI 69 yo female here for eye pain and swelling. She has been taking drops (gtts) (timilol). Eyelid hasbeen drooping and swelling. Started Saturday of this week. Pt denies redness and new floaters. She has been taking drops (gtts) at night. Last edited by Agustina Nuñez on 03/31/2025 1:30 PM. REVIEW OF SYSTEMS: ROS Positive for: Musculoskeletal, Eyes, Respiratory, Psychiatric Negative for: Constitutional, Gastrointestinal, Neurological, Skin, Genitourinary, HENT, Endocrine,Cardiovascular, Allergic/Imm, Heme/Lymph Last edited by Agustina Nuñez on 03/31/2025 1:31 PM. Negative except for ROS Positive for: Musculoskeletal, Eyes, Respiratory, Psychiatric Negative for: Constitutional, Gastrointestinal, Neurological, Skin, Genitourinary, HENT, Endocrine,Cardiovascular, Allergic/Imm, Heme/Lymph Last edited by Agustina Nuñez on 03/31/2025 1:31 PM. Referring physician: No referring provider defined for this encounter. HISTORICAL INFORMATION: Selected notes from the medical record: CURRENT MEDICATIONS: Current Outpatient Medications (Ophthalmic Drugs) Medication Sig dorzolamide-timolol (Cosopt) 2-0.5 % ophthalmic solution Administer 1 drop into both eyes 2 times aday. No current facility-administered medications for this visit. (Ophthalmic Drugs) Current Outpatient Medications (Other) Medication Sig albuterol 108 (90 Base) MCG/ACT inhaler INHALE TWO PUFFS BY MOUTH EVERY 6 HOURS NEEDED FOR SHORTNESS OF BREATH OR wheezing Anoro Ellipta 62.5-25 MCG/ACT aerosol powder aerosol powder Inhale 1 Inhalation. aspirin 81 MG EC tablet daily. budesonide EC (Entocort EC) 3 MG 24 hr capsule Take 3 capsules by mouth daily. cholecalciferol (Vitamin D-3) 50 MCG (2000 UT) tablet Take 1 tablet (2,000 Units) by mouth 1 (one) time each day. cyclobenzaprine (Flexeril) 10 MG tablet TAKE ONE TABLET BY MOUTH EVERY DAY AT BEDTIME MAY CAUSE DROWSINESS ipratropium-albuterol (Duo-Neb) 0.5-2.5 mg/3 mL nebulizer solution INHALE THE CONTENTS OF 1 VIAL VIA NEBULIZER EVERY 4 TO 6 HOURS NEEDED FOR SHORTNESS OF BREATH OR wheezing lisinopril 10 MG tablet Take 1 tablet by mouth daily. oxyCODONE-acetaminophen (Percocet) 5-325 MG tablet TAKE ONE TABLET BY MOUTH TWICE DAILY NEEDED FOR PAIN MAY CAUSE DROWSINESS rosuvastatin (Crestor) 20 MG tablet Take 1 tablet by mouth daily. coenzyme Q-10 10 MG capsule coenzyme Q10 200mg qd (Patient not taking: Reported on 03/31/2025) No current facility-administered medications for this visit. (Other) ALLERGIES Allergies Allergen Reactions Methocarbamol Hives and Other - please document in the comment field Levofloxacin Nausea And Vomiting and Vomiting Abdominal pain Methylprednisolone Palpitations Penicillins Other - please document in the comment field PAST MEDICAL HISTORY Past 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: Diagnosis Date Collagenous colitis Collagenous colitis COPD (chronic obstructive pulmonary disease) ([facility]) Past Surgical History: Procedure Laterality Date CERVICAL FUSION TUBAL LIGATION FAMILY HISTORY Family History Problem Relation Name Age of Onset Breast cancer Mother Heart failure Father Other (bypass) Father Breast cancer Sister Other (gall bladder cancer) Sister SOCIAL HISTORY 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 Tobacco Use Smoking status: Former Current packs/day: 1.00 Average packs/day: 1 pack/day for 41.7 years (41.7 ttl pk-yrs) Types: Cigarettes Start date: 1983 Passive exposure: Current Smokeless tobacco: Never Vaping Use Vaping status: Never Used Substance Use Topics Alcohol use: Not Currently Drug use: Never GENERAL EXAM: General Exam: Neuro: Alert and Oriented x 3, normal mood and affect OPHTHALMIC EXAM: Base Eye Exam Visual Acuity (Snellen - Linear) Right Left Dist sc 20/40 -2 20/40 -1 Dist ph sc 20/25 -3 20/25 -3 Tonometry (Tonopen, 1:37 PM) Right Left Pressure 20 17 Pupils Pupils Right PERRL Left PERRL Neuro/Psych Oriented x3: Yes Mood/Affect: Normal Dilation Both eyes: 1% Tropicamide @ 1:38 PM Slit Lamp and Fundus Exam External Exam Right Left External Normal Normal Slit Lamp Exam Right Left Lids/Lashes Normal for age Normal for age Conjunctiva/Sclera Normal Normal Cornea Clear and compact Clear and compact Anterior Chamber Formed and quiet formed and quiet Iris Normal pupil size and shape Normal pupil size and shape, ?tr NVI at pupil ruff Lens NS NS Anterior Vitreous Normal Normal Fundus Exam Right Left Posterior Vitreous Clear Clear Disc borderline hypoplasia, robust rim with mild focal supr thinning, good color, no heme borderline hypoplasia, robust rim, good color, no heme C/D Ratio 0.25 0.3 Macula few drusen and rare MA few drusen, rare central MA Vessels Perfused; no tortuosity or abnormality Perfused; no tortuosity or abnormality Periphery Attached; no retinal or choroidal lesions Attached; no retinal or choroidal lesions IMAGING AND PROCEDURES OCT, Retina - OU - Both Eyes Right eye (OD): ?trace early cystic changes Left eye (OS); trace cysts improved from last visit with Dr. Armendariz Linked Images OCT, Retina - OU - Both Eyes Right eye (OD): ?trace early cystic changes Left eye (OS); trace cysts improved from last visit with Dr. Armendariz Linked Images VISIT DIAGNOSES 1. Partial retinal vein occlusion, left OCT, Retina - OU - Both Eyes ASSESSMENT AND PLAN: Pt Dr. 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 Hewitt Ocular hypertension right eye (OD)>left eye (OS) - Tmax 03/02/25: 35 24, mildly shallow chamber but dilated without event - per Dr. Hewitt no neovascularization of iris (NVA) on gonio and ?plateau iris - ddx includes steroid response as recently on medrol dosepack. ONH ?mild temporal pallor but no cupping. - continue cosopt qAM OU Explained the diagnoses, plan, and follow up with the patient and they expressed understanding. Patient expressed understanding of the importance of proper follow up care. Follow up for as scheduled. Patient Instructions Call or return to clinic with sudden new floaters or worsening in existing floaters, flashes of light, spiderwebs or cobwebs in vision, or curtains coming down in vision. Consider going to the emergency room if you are unable to reach the clinic on the phone. Call [phone] and ask for the party plan sales consultant senior fire protection engineer if it is after hours or a weekend or holiday. Electronically signed by: Rita Amezcua MD 04/05/2025 12:26 PM Tobacco Cessation Initiative: Tobacco Use: Medium Risk (03/31/2025) Patient History Smoking Tobacco Use: Former Smokeless Tobacco Use: Never Passive Exposure: Current The patient has been counseled on tobacco cessation: Yes Cosigned by Rita Amezcua MD at 04/05/2025 12:26 PM EDT Associated attestation - Rita Amezcua MD - 04/05/2025 12:26 PM EDT I saw and evaluated the patient. I discussed the case with the resident/fellow and agree with the findings and plan as documented. documented in this encounter Plan of Treatment Upcoming Encounters Date Type Department Care Team (Late st Contact Info) Description 07/01/2025 2:00 PM EST Office Visit [facility] [address] [place] [address] Pita Hewitt MD [address] [place] [address] 08/25/2025 1:15 PM EST Office Visit [facility] [address] [place] [address] Rita Amezcua MD [address] [place] [address] 02/16/2026 10:00 AM EDT Office Visit [facility] [place] [address] [place] [address] Hernandez Arzate MD [address] [place] [address] documented as of this encounter [...] esult documented in this encounter Visit Diagnoses Diagnosis Partial retinal vein occlusion, left- Primary Age-related nuclear cataract of both eyes Ocular hypertension, bilateral documented in this encounter Additional Health Concerns Assessment Noted Time PHQ-9 Depression Total Score: 0 02/10/ 25 10:29 AM EDT A fall risk assessment has been complete d for the patient 03/31/2025 1:32 PM EDT A Body Mass Index follow-up plan has been documented for the patient 04/05/2025 12:27 PM EDT documented as of this encounter Care Teams Technology Sales Specialist Relationship Specialty Start Date End Date Loy Cruz MD PCP - General 08/31/22 documented as of this encounter
--- OUTSIDE RECORDS SUMMARY | 2025-04-15 09:45 | XMS_ITS | Encounter Summary ---
Author Organization Healthcare Address [address] [place] [address] Care Team Providers Care Energy Systems Engineer Name Role Phone Loy Cruz MD Primary Care Provider [phone] Reason for Visit * Reason Comments Eye Exam Encounter Details Date Type Department Care Team (Late st Contact Info) Description 04/15/2025 10:45 AM EDT Office Visit [facility] [address] [place] [address] Pita Hewitt MD [address] [place] [address] Ocular hypertension, bilateral (Primary Dx); Age-related nuclear cataract of both eyes; Partial retinal vein occlusion, left; Plateau iris of both eyes 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 Tobacco Use Types Packs/Day Years [...] encounter Miscellaneous Notes * Progress Notes - Pita Hewitt MD - 04/15/2025 10:45 AM EDT Two week follow-up after initial glaucoma consult requested by Dr. Amezcua. At yesterday's consult from Dr. Armendariz for wet AMD OS, there was concern for twig RVO OS and trace NVI OS. The IOPs were 34 T 24. Recent medrol dose pack. ARx with glare, HVF OU, IOL calculations on arrival* She reports: no cosopt yet today, it burks Vision is not doing well. Vision is blurry in both eyes. Both eyes feel tired and painful. Pt denies redness and swelling. No new floaters. forcing herself to take the drops. At last visit: the eye is comfortable and the vision hasn't changed. She started on the Cosopt drops last night and again this morning. She has some trouble with night driving and reading in poor lighting. Recently her blood pressure has been fluctuating. Prior to yesterday's visit, the IOPs had been 18-19 OU at both [facility] and with Dr. Amezcua in . History of CAD, HTN, COPD and tobacco use. Observing coronary atherosclerosis without treatment. Glaucoma History Summary: Diagnosis: ocular hypertension OD > OS with phacomorphic angle changes Onset / Referral from: Dr. Amezcua, February 2025 GOAL IOP: Right Eye- 19 mmHg or less Left Eye- 19 mmHg or less. MAX IOP: Right Eye - 34 mmHg Left Eye - 24 mmHg Pachymetry: OD - 51 um OS - 557 um Corneal Hysteresis: OD - pending OS - pending Current Meds: Cosopt BID OU Failed Meds: none Right Eye Surgery: none Left Eye Surgery: none SLT History: OD - no previous OS - no previous Family History: Dr. Hewitt has followed her son for decades, he has a history of traumatic glaucoma Trauma History: no history of ocular trauma Migraine hx, MAU, vascular dz / anemia, vitamin defic or steroid use: none Last OCT: Feb 2025 OD: full and robust, avg 84 um. OS: focal supr thinning, otherwise full and robust, avg 76 um. Image quality good OU. Last HVF: Mar 2025 OD: mild central depression (MD -2.3 dB), reliability good, no previous test forcomparison OS: mild to moderate central depression (MD -2.9 dB), reliability good, no previous testfor comparison Possible lenticular effect OU. Concerns / Comments: Assessment / Plan: Ocular hypertension OD > OS, with phacomorphic angle changes 03/31/25: Incidental findings of new onset ocular hypertension at 34 T 24 yesterday at retina consult. Concern for twig RVO OS. PMHx of COPD Family hx of traumatic glaucoma, no personal trauma history Has had some recent steroid exposure with medrol dose pack. Exam remarkable for somewhat shallow AC s. Gonio shows angle narrowing OU, opens with compression. Optic nerves are somewhat hypoplastic with overall robust tissue. The vessel pattern is somewhat anomalous OU but symmetrical. OCT RNFL full and robust except for some focal superior thinning OS Rec Goal IOP of 19 or less IOPs dramatically improved today to 11 T 10 after taking CS last night and this AM. No obvious NVI NVA - Dr. Amezcua had noted trace NVI OS at pupillary ruff? While she is not in angle closure, she is at risk for phacomorphic glaucoma. There may also be a component of plateau iris. Rec phaco / ECPC OD then OS when able. Defer scheduling until Dr. Amezcua work-up is complete. For now continue Cosopt q AM OU. Discussed ocular HTN as a risk factor for RVO 04/15/25: FA at is still pending 04/22 Faint NVI vs prominent normal iris vasculature? IOPs today have improved from baseline with continued Cosopt use, but intermediate accountant she would like to be off drops and is ready to move forward with surgery. The left eye vision is more symptomatic so will do that first unless new concerns arise with additional retinal testing. Rec CE / ECPC OS first - discussed at length, she consents Right eye dominant IOL calcs done today (scan is pending) She can tolerate the drop for now, even though it burks, until the surgery is performed. Age related nuclear cataracts both eye Symptomatic, especially with night driving, left worse than right Right eye dominant Use +22.5 CC60WF IOL for LEFT eye, Target -0.66 Twig retinal vein occlusion OS Additional work-up with Dr. Amezcua pending, she has an appointment in [place] for FA OCT retina shows trace early cystic changes cc: Dr. Amezcua. Dr. Armendariz documented in this encounter Plan of Treatment Upcoming Encounters Date Type Department Care Team (Late st Contact Info) Description 07/01/2025 2:00 PM EST Office Visit [facility] [address] [place] [address] Pita Hewitt MD [address] [place] [address] 08/25/2025 1:15 PM EST Office Visit [facility] [address] [place] [address] Rita Amezcua MD [address] [place] [address] 02/16/2026 10:00 AM EDT Office Visit [facility] [address] [place] [address] Hernandez Arzate MD [address] [place] [address] documented as of this encounter Procedures Procedure Name Priority Date/Time Associated Diagnosis Comments ALFONSO VISUAL FIELD - OU - BOTH EYES Routine 04/16/2025 9:54 PM EDT Ocular hypertension, bilateral ULTRASOUND BIOMETRY W IOL ARABELLA - OU - BOTH EYES Routine 04/16/2025 9:50 PM EDT Age-related nuclear cataract of both eyes documented in this encounter Results * Alfonso Visual Field - OU - Both Eyes (04/16/2025 9:54 PM EDT) Anatomical Region Laterality Modality Head Visual Field Narrative 04/16/2025 9:54 PM EDT Mar 2025 OD: mild central depression (MD -2.3 dB), reliability good, no previous test for comparison OS: mild to moderate central depression (MD -2.9 dB), reliability good, no previous test for comparison Possible lenticular effect OU. us Pita Hewitt MD OPH VISUAL FIELD Final Res ult * Ultrasound Biometry w IOL Arabella - OU - Both Eyes (04/16/2025 9:50 PM EDT) Anatomical Region Laterality Modality Head Other Narrative 04/20/2025 4:26 PM EDT Right Eye Lens style: [id number]. Lens power: +21.5. Target refraction: - 0.38. Left Eye Lens style: [id number]. Lens power: +22.5. Target refraction: - 0.66. Notes Lopez and Harrison formulas used. Cylinder: OD +0.6 @ 39 OS +1.1 @ 65 us Pita Hewitt MD OPH ULTRASOUND Final Resul t documented in this encounter Visit Diagnoses Diagnosis Ocular hypertension, bilateral- Primary Age-related nuclear cataract of both eyes Partial retinal vein occlusion, left Plateau iris of both eyes documented in this encounter Additional Health Concerns Assessment Noted Time PHQ-9 Depression Total Score: 0 02/11/20 25 10:29 AM EDT A fall risk assessment has been complete d for the patient 04/15/2025 10:39 AM EDT A Body Mass Index follow-up plan has been documented for the patient 04/20/2025 4:27 PM EDT documented as of this encounter Care Teams Energy Systems Engineer Relationship Specialty Start Date End Date Loy Cruz MD PCP - General 08/31/22 documented as of this encounter
--- OUTSIDE RECORDS SUMMARY | 2025-04-16 20:55 | XMS_ITS | Encounter Summary ---
Author Organization Healthcare Address [address] [place] [address] Care Team Providers Care Ground Support Equipment Mechanic Name Role Phone Loy Cruz MD Primary Care Provider [phone] Encounter Details Date Type Department Care Team (Late Contact Info) Description 04/16/2025 9:55 PM EDT Ancillary Procedure [facility] [address] [place] [address] 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 Tobacco Use Types [...] Description 07/01/2025 2:00 PM EST Office Visit [facility] [address] [place] [address] Pita Hewitt MD [address] [facility] [address] [place] [address] 08/25/2025 1:15 PM EST Office Visit [facility] [address] [place] [address] Rita Amezcua MD [address] [place] [address] 02/16/2026 10:00 AM EDT Office Visit [facility] [address] [place] [address] Hernandez Arzate MD [address] [place] [address] documented as of this encounter Procedures Procedure Name Priority Date/Time Associated Diagnosis Comments ALFONSO VISUAL FIELD - OU - BOTH EYES Routine 04/16/2025 9:54 PM EDT Ocular hypertension, bilateral documented in this encounter Results * Alfonso [...] test for comparison Possible lenticular effect OU. Pita Hewitt MD OPH VISUAL FIELD Final Res ult documented in this encounter Visit Diagnoses Not [...] documented as of this encounter Care Teams Ground Support Equipment Mechanic Relationship Specialty Start Date End Date Loy Cruz MD PCP - General 08/31/22 documented as of this encounter
--- OUTSIDE RECORDS SUMMARY | 2025-04-22 07:15 | XMS_ITS | Encounter Summary ---
Author Organization [facility] Address [address] [place] [address] Care Team Providers Care Audit Machine Operator Name Role Phone Loy Cruz MD Primary Care Provider [phone] Encounter Details Date Type Department Care Team (Late Contact Info) Description 04/22/2025 8:15 AM EDT Ancillary Procedure [facility] [address] [place] [address] 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 Tobacco Use Types Packs/Day Years [...] Description 07/01/2025 2:00 PM EST Office Visit [facility] [address] [place] [address] Pita Hewitt MD [address] [address] 08/25/2025 1:15 PM EST Office Visit [facility] [address] [place] [address] Rita Amezcua MD [address] [place] [address] 02/16/2026 10:00 AM EDT Office Visit [facility] [place] [address] [place] [address] Hernandez Arzate MD [address] [place] [address] documented as of this encounter Goals Goal Patient Goal Type Associated Problems Recent Progress Patient-Stated? Author Autogenerat ed Goal Care Plan Autogenerated Problem No Sean-Kaia Edwards documented as of this encounter Procedures Procedure Name Priority Date/Time Associated Diagnosis Comments FLUORESCEIN ANGIOGRAPHY - OU - BOTH EYES Routine 04/22/2025 3:09 PM EDT Exudative age-related macular degeneration, left eye, with active choroidal neovascularization ([facility]) documented in this encounter Results * Fluorescein Angiography - OU - Both Eyes (04/22/2025 3:09 PM EDT) Anatomical Region Laterality Modality Head Fundus Photograp hy Narrative 04/22/2025 3:09 PM EDT Right eye (OD): few punctate areas of staining Left eye (OS): reasonable peripheral perfusion, mottled staining nasal, mild hyperfluoresence in ST macula with punctate expansile dots into an area of pooling us Rita Amezcua MD OPHTH PHOTOGRAPHY Teresa l Result documented in this encounter Visit Diagnoses Not on filedocumented in this encounter Additional Health Concerns Active Problems Noted Date Diagnosed Date Autogenerated Problem 05/18/2025 Assessment Noted Time PHQ-9 Depression Total Score: 0 02/11/20 25 10:29 AM EDT A fall risk assessment has been complete d for the patient 04/22/2025 2:09 PM EDT A Body Mass Index follow-up plan has been documented for the patient 04/20/2025 4:27 PM EDT documented as of this encounter Care Teams Audit Machine Operator Relationship Specialty Start Date End Date Loy Cruz MD PCP - General 08/31/22 documented as of this encounter
--- OUTSIDE RECORDS SUMMARY | 2025-04-22 07:15 | XMS_ITS | Encounter Summary ---
Author Organization [facility] Address [address] [place] [address] Care Team Providers Care Seismograph Supervisor Name Role Phone Loy Cruz MD Primary Care Provider [phone] Encounter Details Date Type Department Care Team (Late Contact Info) Description 04/22/2025 8:15 AM EDT Ancillary Procedure [facility] [address] [place] [address] 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 Tobacco Use Types [...] Description 07/01/2025 2:00 PM EST Office Visit [facility] [address] [place] [address] Pita Hewitt MD [address] [address] 08/25/2025 1:15 PM EST Office Visit [facility] [address] [place] [address] Rita Amezcua MD [address] [place] [address] 02/16/2026 10:00 AM EDT Office Visit [facility] [place] [address] [place] [address] Hernandez Arzate MD [address] [place] [address] documented as of this encounter Goals Goal Patient Goal Type Associated Problems Recent Progress Patient-Stated? Author Autogenerat ed Goal Care Plan Autogenerated Problem No Sean-Kaia Edwards documented as of this encounter Procedures Procedure Name Priority Date/Time Associated Diagnosis Comments OCT, RETINA - OU - BOTH EYES Routine 04/22/2025 3:53 PM EDT Exudative age-related macular degeneration, left eye, with active choroidal neovascularization ([facility]) documented in this encounter Results * OCT, Retina - OU - Both Eyes (04/22/2025 3:53 PM EDT) Anatomical Region Laterality Modality Head Optical Coherenc e Tomography Narrative 04/22/2025 3:53 PM EDT Right eye (OD): trace early cystic changes para foveally, superior drusen Left eye (OS); scattered cysts centrally temporal to fovea with underlying RPE disruption us Rita Amezcua MD OPHTH TOMOGRAPHY Final Result documented in this encounter Visit [...] documented as of this encounter Care Teams Seismograph Supervisor Relationship Specialty Start Date End Date Loy Cruz MD PCP - General 08/31/22 documented as of this encounter
--- OUTSIDE RECORDS SUMMARY | 2025-04-22 13:00 | XMS_ITS | Encounter Summary ---
Author Organization [facility] Address [address] [place] [address] Care Team Providers Care Wholesale Parts Salesperson Name Role Phone Loy Cruz MD Primary Care Provider [phone] Reason for Visit * Reason Comments Macular Degeneration Encounter Details Date Type Department Care Team (Latest Contact Info) Description 04/22/2025 2:00 PM EDT Office Visit [facility] [address] [place] [address] Rita Amezcua MD [address] [address] Partial retinal vein occlusion, left (Primary Dx); Exudative age-related macular degeneration, left eye, with active choroidal neovascularization (CMS/HCC); Ocular hypertension, bilateral; Age-related nuclear cataract of both eyes; 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 Consider going to the emergency room if you are unable to reach the clinic on the phone. Call [phone] and ask for the sleeve turner individual pension adviser if it is after hours or a weekend or holiday. * Progress Notes - Aureliano Laguerre MD - 04/22/2025 2:00 PM EDT Retina Clinic Note CHIEF COMPLAINT Patient presents for Macular Degeneration HISTORY OF PRESENT ILLNESS: Brisa Mclean is a 69 y.o. female who presents to the clinic today for: HPI 69 y.o. female presents in the clinic today for 1-2 month follow up partial retinal vein occlusion,left Pt states My vision is about he same. I have been seeing floaters for about a month and thatis new ever since I started the drops. Using Cosopt 1 drop each eye in the mornings. Pt denies: changes, concerns, flashes, floaters, pain or irritation Last edited by Jayleen Anaya on 04/22/2025 2:20 PM. REVIEW OF SYSTEMS: ROS Positive for: Eyes Negative for: Constitutional, Gastrointestinal, Neurological, Skin, Genitourinary, Musculoskeletal,HENT, Endocrine, Cardiovascular, Respiratory, Psychiatric, Allergic/Imm, Heme/Lymph Last edited by Jayleen Anaya on 04/22/2025 2:08 PM. Negative except for ROS Positive for: Eyes Negative for: Constitutional, Gastrointestinal, Neurological, Skin, Genitourinary, Musculoskeletal,HENT, Endocrine, Cardiovascular, Respiratory, Psychiatric, Allergic/Imm, Heme/Lymph Last edited by Jayleen Anaya on 04/22/2025 2:08 PM. Referring physician: No referring provider defined [...] 200mg qd (Patient not taking: Reported on 04/15/2025) No current facility-administered medications for this visit. (Other) ALLERGIES Allergies Allergen Reactions Methocarbamol Hives and Other - please document in the comment field Levofloxacin Nausea And Vomiting and Vomiting Abdominal pain Methylprednisolone Palpitations Penicillins Other - please document in the comment field PAST MEDICAL HISTORY Past 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: Diagnosis Date Bronchitis 01/20/25 Collagenous colitis Collagenous colitis COPD (chronic obstructive pulmonary disease) Otitis media of right ear 01/20/25 Sinusitis 01/20/25 Viral upper respiratory illness 01/20/25 Past Surgical History: Procedure Laterality Date CERVICAL FUSION TUBAL LIGATION FAMILY HISTORY Family History Problem Relation Name Age of Onset Breast cancer Mother Heart failure Father Other (bypass) Father Breast cancer Sister Other (gall bladder cancer) Sister SOCIAL HISTORY 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 Tobacco Use Smoking status: Former Current packs/day: 1.00 Average packs/day: 1 pack/day for 41.8 years (41.8 ttl pk-yrs) Types: Cigarettes Start date: 1983 Passive exposure: Current Smokeless tobacco: Never Vaping Use Vaping status: Never Used Substance Use Topics Alcohol use: Not Currently Drug use: Never GENERAL EXAM: General Exam: Neuro: Alert and Oriented x 3, normal mood and affect OPHTHALMIC EXAM: Base Eye Exam Visual Acuity (Snellen - Linear) Right Left Dist sc 20/30 20/40 Dist ph sc 20/25 20/30 Tonometry (Tonopen, 2:25 PM) Right Left Pressure 16 14 Pupils Pupils APD Right PERRL None Left PERRL None Neuro/Psych Oriented x3: Yes Mood/Affect: Normal Dilation Both eyes: 1% Tropicamide, 2.5% Phenylephrine @ 2:25 PM Slit Lamp and Fundus Exam External Exam Right Left External Normal Normal Slit Lamp Exam Right Left Lids/Lashes Normal for age Normal for age Conjunctiva/Sclera Normal Normal Cornea Clear and compact Clear and compact Anterior Chamber Formed and quiet formed and quiet Iris Normal pupil size and shape Normal pupil size and shape, ?tr NVI at pupil ruff nasally Lens NS NS Anterior Vitreous Normal Normal Fundus Exam Right Left Posterior Vitreous Clear Clear Disc borderline hypoplasia, robust rim with mild focal supr thinning, good color, no heme borderline hypoplasia, robust rim, good color, no heme C/D Ratio 0.25 0.3 Macula few drusen and rare MA, central pigment change few drusen, rare central MA; central pigment change Vessels Perfused; no tortuosity or abnormality Perfused; no tortuosity or abnormality Periphery Attached; nasal pigment changes Attached; nasal pigment changes IMAGING AND PROCEDURES OCT, Retina - OU - Both Eyes Right eye (OD): trace early cystic changes para foveally, superior drusen Left eye (OS); scattered cysts centrally temporal to fovea with underlying RPE disruption Fluorescein Angiography - OU - Both Eyes Right eye (OD): few punctate areas of staining Left eye (OS): reasonable peripheral perfusion, mottled staining nasal, mild hyperfluoresence in STmacula with punctate expansile dots into an area of pooling Fluorescein Angiography - OU - Both Eyes Right eye (OD): few punctate areas of staining Left eye (OS): reasonable peripheral perfusion, mottled staining nasal, mild hyperfluoresence in STmacula with punctate expansile dots into an area of pooling OCT, Retina - OU - Both Eyes Right eye (OD): trace early cystic changes para foveally, superior drusen Left eye (OS); scattered cysts centrally temporal to fovea with underlying RPE disruption VISIT DIAGNOSES 1. Partial retinal vein occlusion, left 2. Exudative age-related macular degeneration, left eye, with active choroidal neovascularization (CMS/HCC) Fluorescein Angiography - OU - Both Eyes, OCT, Retina - OU - Both Eyes 3. Ocular hypertension, bilateral 4. Age-related nuclear cataract of both eyes 5. 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 Deangelo Armendariz for wet age-related macular degeneration (AMD) OS, his records reviewed and communication sent Mac Tel OU - rare MA and trace cystoid macular edema (CME) which has nearly resolved left eye (OS) with cysticchanges which may be lamellar - monitor closely, improved on own and very small. Few Mas OU - recommended eval of blood pressure/visit to PCP, has not seen in a while NVI left eye (OS) vs prominent iris vessels - unclear significance of NVI left eye (OS) - Fluorescein angiography (FA) at 04/22/25 showing reasonable peripheral perfusion, mottled staining nasal, mild hyperfluoresence in ST macula with punctate expansile dots into an area of pooling but no explanation for NVI. No obvious ciliary mass on UBM 04/22/25. Monitor for now, may just be prominent vascularity but if worsens will rec repeat UBM with ocular oncology Mild dry age-related macular degeneration (ARMD) OU - few drusen - discussed avoiding smoking, AG given Cataracts both eyes (OU) - planning for phaco/[facility] right eye (OD) then left eye (OS) with Dr. Hewitt 05/17/25 Ocular hypertension right eye (OD)>left eye (OS) [...] the importance of proper follow up care. No follow-ups on file. There are no Patient Instructions on file for this visit. Electronically signed by: Rita Amezcua MD 04/26/2025 6:46 PM Electronically Signed by: Aureliano Laguerre MD - 04/22/2025 - 3:13 PM I saw and evaluated the patient. I discussed the case with the resident/fellow and agree with the findings and plan as documented. Rita Amezcua MD Tobacco Cessation Initiative: Tobacco Use: Medium Risk (04/22/2025) Patient History Smoking Tobacco Use: Former Smokeless Tobacco Use: Never Passive Exposure: Current The patient has been counseled on tobacco cessation: Yes Cosigned by Rita Amezcua MD at 04/26/2025 6:53 PM EDT Associated attestation - Rita Amezcua MD - 04/26/2025 6:53 PM EDT I saw and evaluated the patient. I discussed the case with the resident/fellow and agree with the findings and plan as documented. documented in this encounter Plan of Treatment Upcoming Encounters Date Type Department Care Team (Late st Contact Info) Description 07/01/2025 2:00 PM EST Office Visit [facility] [address] [place] [address] Pita Hewitt MD [address] [address] 08/25/2025 1:15 PM EST Office Visit [facility] [address] [place] [address] Rita Amezcua MD 110 [facility] [address] [place] [address] 02/16/2026 10:00 AM EDT Office Visit [facility] [address] [place] [address] Hernandez Arzate MD [address] [place] [address] documented as of this encounter Goals Goal Patient Goal Type Associated Problems Recent Progress Patient-Stated? Author Autogenerat ed Goal Care Plan Autogenerated Problem No Sean-Kaia Edwards documented as of this encounter Procedures Procedure Name Priority Date/Time Associated Diagnosis Comments OCT, RETINA - OU - BOTH EYES Routine 04/22/2025 3:53 PM EDT Exudative age-related macular degeneration, left eye, with active choroidal neovascularization (CMS/HCC) FLUORESCEIN ANGIOGRAPHY - OU - BOTH EYES Routine 04/22/2025 3:09 PM EDT Exudative age-related macular degeneration, left eye, with active choroidal neovascularization (CMS/HCC) documented in this encounter Results * OCT, Retina - OU - Both Eyes (04/22/2025 3:53 PM EDT) Anatomical Region Laterality Modality Head Optical Coherenc e Tomography Narrative 04/22/2025 3:53 PM EDT Right eye (OD): trace early cystic changes para foveally, superior drusen Left eye (OS); scattered cysts centrally temporal to fovea with underlying RPE disruption us Rita Amezcua MD OPHTH TOMOGRAPHY Final Result * Fluorescein Angiography - OU - Both Eyes (04/22/2025 3:09 PM EDT) Anatomical Region Laterality Modality Head Fundus Photograp hy Narrative 04/22/2025 3:09 PM EDT Right eye (OD): few punctate areas of staining Left eye (OS): reasonable peripheral perfusion, mottled staining nasal, mild hyperfluoresence in ST macula with punctate expansile dots into an area of pooling Rita Amezcua MD OPHTH PHOTOGRAPHY Teresa l Result documented in this encounter Visit Diagnoses Diagnosis Partial retinal vein occlusion, left- Primary Exudative age-related macular degeneration, left eye, with active choroidal neovascularization (CMS/HCC) Ocular hypertension, bilateral Age-related nuclear cataract of both eyes 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
--- OUTSIDE RECORDS SUMMARY | 2025-05-17 05:35 | XMS_ITS | Encounter Summary ---
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, bilateral [H40.053] Age-related nuclear cataract of both eyes [H25.13] Plateau iris of both eyes [H21.82] Procedures [place] XCAPSL CTRC RMVL INSJ IO LENS PROSTH W/ECP [place] XCAPSL CTRC RMVL INSJ IO LENS PROSTH CPLX W/ECP [place] XCAPSL CTRC RMVL INSJ IO LENS PROSTH CPLX W/ECP [place] ECP CILIARY BODY DSTRJ W/O RMVL CRYSTALLINE LENS PHACOEMULSIFICATION, CATARACT, WITH IOL INSERTION AND ENDOSCOPIC CYCLOPHOTOCOAGULATION PHACOEMULSIFICATION, CATARACT, WITH IOL INSERTION AND ENDOSCOPIC CYCLOPHOTOCOAGULATION Pita Hewitt MD [address] [address] Phone: tel: fax: [facility] [address] [place] [address] Phone: tel: Referral ID Status Reason Start Date Expiration Date Visits Re quested Visits Authorized [id number] 1 1 Encounter Details Date Type Department Care Team (Latest Contact Info) Description 05/17/2025 6:35 AM EDT - 05/17/2025 10:30 AM EDT Hospital Encounter [facility] [address] [place] [address] Pita Hewitt MD [address] [place] [address] Age-related nuclear cataract of both eyes (Primary Dx); Ocular hypertension, bilateral; Plateau iris of both eyes Discharge Disposition: Home or Self Care 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 Tobacco Use Types Packs/Day Years [...] Sign Reading Time Taken Comments Blood Pressure 106/71 05/17/2025 10:00 AM EDT Pulse 69 05/17/2025 10:00 AM EDT Temperature 36.1 C (97 F) 05/17/2025 10:00 AM EDT Respiratory Rate 16 05/17/2025 9:30 AM EDT Oxygen Saturation 92% 05/17/2025 10:00 AM EDT Inhaled Oxygen Concentration - - Weight 41.3 kg (91 lb 0.8 oz) 05/17/2025 7:13 AM EDT Height 152.4 cm (5') 05/17/2025 7:13 AM EDT Body Mass Index 17.78 05/17/2025 7:13 AM EDT documented in this encounter Functional Status * Calculated C-SSRS Risk Score (Lifetime/Recent) Answer Date of Assessment Author No Risk Indicated 05/17/2025 8:30 AM EDT Rosa Chappell, DIMA * Question Answer Date of Assessment Author 1. Wish to be (Past 1 Month) No 8:30 AM EDT Rosa Chappell RN 2. Non-Specific Active Suici enid Thoughts (Past 1 Month) No 05/17/2025 8:30 AM EDT Rosa Chappell , DIMA 6. Suicidal Behavior (Lifetime) No 8:30 AM EDT Rosa Chappell, DIMA documented as of this encounter Discharge Instructions * Discharge Instructions* Jackie LucianoDIMA - 05/17/2025 7:14 AM EDT Images from the original note were not included. Recovery After Procedural Sedation (Adult) You have been given medicine by vein to make you sleep during your procedure. This may have included both a pain medicine and sleeping medicine. Most of the effects have worn off. But you may still have some drowsiness for the next 6 to 8 hours. Home care Follow these guidelines when you get home: For the next 8 hours, you should be watched by a responsible adult. This person should make sure your condition is not getting worse. Don't drink any alcohol for the next [address], operate dangerous machinery, or make important business or personal decisions during the next 24 hours. Note: Your healthcare provider may tell you not to take any medicine by mouth for pain or sleep in the next 4 hours. These medicines may react with the medicines you were given in the hospital. This could cause a much stronger response than usual. Follow-up care Follow up with your healthcare provider as advised. Also follow up with your provider if you are not alert and back to your usual level of activity within 12 hours. When to seek medical advice Have someone call your healthcare provider right away if any of these occur: Drowsiness gets worse Weakness or dizziness gets worse Repeated vomiting Severe or ongoing pain from the procedure that's not eased by the pain medicine (if prescribed) Fever New rash Call 911 Have someone call 911 if you have any of these: Shortness of breath Chest pain Loss of consciousness or you can't be awakened Inside Social last reviewed this educational content on 07/22/2021 ?? [id number] [employer]. All rights reserved. This information is not intended as a substitute for professional medical care. Always follow your healthcare professional's instructions. Tips for Quitting Tobacco Why quitting matters Tobacco and secondhand smoke can cause serious health problems, such as cancer or heart or lung disease. Tobacco can also make it harder to heal after an illness or surgery. Quitting helps you and those around you. Tobacco and tobacco smoke have more than 4000 chemicals that can harm you and others. Here are some tips to help you quit: Know your ???triggers?? Triggers are danger situations where you have a strong urge to use tobacco. If you know them, you can deal with them. Avoid places where you see people using tobacco. This is very important when you first start to quit. Change behaviors linked to using tobacco. If you use tobacco in the car, drink water instead. Try taking walks after meals, which is a common trigger time. Stress, anger or sadness can cause you to crave tobacco. Fight the urge by thinking of things - like your favorite song, or distracting yourself with an activity you enjoy. The urge will often pass in a few minutes. Manage nicotine withdrawal Nicotine in tobacco is very addictive. Withdrawal can put you in a bad mood and make you crave tobacco. This can last for weeks after you quit. Medicines, like nicotine replacement (NRT), can ease these feelings. We can help you fight the urge to use tobacco. While you are here, ask for medicine, such as nicotine patches, lozenges, or gum. Talk to your doctor about which medicine is best for you. Let us help you quit You do not have to spend a lot of money to get help. Often help is free. The free telephone quit line: (7-017-RIZJXXP). Support groups: Your local health department may offer these virtually or in person. 's resources to help you quit: http://www.[facility]/TobaccoFree/ - Click on the Quit Here! tab. Web sites that offer help quitting: www.smokefree.gov, www.becomeanex.org. Tobacco Treatment Counselors and your health care provider. Medicare and Medicaid pay for visits todiscuss quitting tobacco. employees, retirees, and their spouses or sponsored dependents can get free nicotine replacementtherapy and coaching. Visit www.[facility].edu/HR/Wellness/consults.html. Visit the [facility]. It offers free pamphlets on quitting tobacco, secondhand smoke and other health topics. Tell your doctor or nurse if you are want to know more. We can help! You can quit! It is hard to quit tobacco. Most people do best when they get help quitting. Many people try to quit a few times before they stay quit for good. Don???t be discouraged, get help! Quitting tobacco is the best thing you can do for your health. documented in this encounter Medications at Time of Discharge oxyCODONE-acetam inophen (Percocet) 5-325 MG tablet 02/03/2025 albuterol 108 (90 Base) MCG/ACT inhaler INHALE TWO PUFFS BY MOUTH EVERY 6 HOURS NEEDED FOR SHORTNESS OF BREATH OR wheezing Anoro Ellipta 62.5-25 MCG/ACT aerosol powder aerosol powder Inhale 1 Inhalation. aspirin 81 MG EC tablet daily. 12/31/2024 budesonide EC (Entocort EC) 3 MG 24 hr capsule Take 2 capsules by mouth daily. 11/09/2024 cholecalciferol (Vitamin D-3) 50 MCG (2000 UT) tablet Take 1 tablet by mouth 1 time each day. coenzyme Q-10 10 MG capsule coenzyme Q10 200mg qd cyclobenzaprine (Flexeril) 10 MG tablet TAKE ONE TABLET BY MOUTH EVERY DAY AT BEDTIME MAY CAUSE DROWSINESS dorzolamide-salo lol (Cosopt) 2-0.5 % ophthalmic solution Administer 1 drop into both eyes 2 times a day. 10 mL 5 03/03/2025 ibuprofen 200 MG tablet Take 2 tablets by mouth every 6 hours as needed for mild pain. ipratropium-albu terol (Duo-Neb) 0.5-2.5 mg/3 mL nebulizer solution INHALE THE CONTENTS OF 1 VIAL VIA NEBULIZER EVERY 4 TO 6 HOURS NEEDED FOR SHORTNESS OF BREATH OR wheezing 03/16/2025 lisinopril 10 MG tablet Take 1 tablet by mouth daily. 12/08/2024 rosuvastatin (Crestor) 20 MG tablet Take 1 tablet by mouth daily. 12/31/2024 documented as of this encounter Miscellaneous Notes * Anesthesia PACU Signout - Lance, Latonia Corral MD - 05/17/2025 10:30 AM EDT Patient: Brisa Mclean Anesthesia Type: MAC Vitals Value Taken Time BP 106/71 05/17/25 10:00 Temp 36.1 ??C (97 ??F) 05/17/25 10:00 Pulse 69 05/17/25 10:00 Resp 16 05/17/25 09:30 SpO2 91 % 05/17/25 10:00 Vitals shown include unfiled device data. Anesthesia PACU Signout Patient location during evaluation: PACU Patient participation: complete - patient participated Level of consciousness: baseline and awake Pain management: adequate (pain score 0-3) Airway patency: natural airway Hydration status: acceptable PONV: none Cardiovascular status: acceptable and hemodynamically stable Respiratory status: acceptable, spontaneous ventilation, unassisted and nonlabored ventilation Discharge Disposition: home * Zach Conklin - Wendy Aguayo RN - 05/17/2025 9:25 AM EDT Images from the original note were not included. 37 Cataract Surgery How to care for yourself at home. ? You may go back to your normal daily activities. ? Avoid hard physical activities or lifting more than 20 pounds. ? You may shower or bathe. Wear the eye shield on for the first 3 days. ? Tape the shield over your eye while you sleep. ? Do not rub your eye. ? Use the drops your doctor gives you as ordered. ? Your glasses may not be the right strength anymore. You may still use them until you get new glasses. It may take 4 weeks or more for your eye to heal and your vision to get stable. ? Tylenol or Ibuprofen for discomfort. Your eye may feel sore or scratchy. If you have any of the following, call the Eye Clinic at [phone]. ? Fever over 101??F. ? Pain is not helped by pain medicine. ? Vision suddenly becomes worse. ? Redness or swelling gets worse. ? Increased bleeding. ? Bleeding or discharge from the eye. ? Nausea or vomiting. ? You have questions or concerns about your surgery or medicine. For emergencies, call [phone] and ask for the eye doctor associate relations specialist. * Op Note - Pita Hewitt MD - 05/17/2025 8:40 AM EDT Operative Note Date: 05/17/25 Location: [facility] OR Name: Brisa Mclean, : 1955, Diagnoses: Pre-op Diagnosis Ocular hypertension, bilateral Age-related nuclear cataract of both eyes Plateau iris of both eyes Post-op Diagnosis Ocular hypertension, bilateral Age-related nuclear cataract of both eyes Plateau iris of both eyes Procedure(s): cataract extraction with posterior chamber lens implant, Endocyclophotocoagulation - left eye Complex with Malyugin ring. Attending Surgeon(s): * Pita Hewitt - Primary Clinical Rn(s): * Shayan Vasquez MD - Resident - Assisting Anesthesia: Monitor Anesthesia Care ASA: III Blood Administration: Blood Product Administration History None Estimated Blood Loss: Minimal Drains: * None in log * Implants Type Name Action Serial No. LENS MONOFOCAL CLEAR CC60WF 22.5 - [id number] Implanted [id number] Specimen: Findings: poor dilation with floppy iris, somewhat shallow chamber Normal ciliary processes, moderate nuclear sclerosis CDE 5.6 Indications: Brisa Mclean is an 69 y.o. female who is having surgery for Ocular hypertension, bilateral Age-related nuclear cataract of both eyes Plateau iris of both eyes. Narrative: The patient was brought into the operating room and placed in a supine position. Timeout was taken to correctly identify the operative eye, patient identity, and planned procedure. The left eye was clearly marked by the surgeons in the preoperative area. Monitors were then placed by Anesthesia, andthe eye was prepped and draped in the usual sterile fashion. A lid speculum was placed to maintain the palpebral fissure and a paracentesis was made. The pupil was noted to dilate inadequately. A paracentesis was placed and the anterior chamber was filled with viscoelastic. A 2.75 mm keratome was used to make a clear corneal incision temporal. A Malyugin ring 7.0 mm in diameter was inserted and captured in the iris, achieving a significant improvement in pupil size and access to the lens. A cystitome was used to initiate and Utrata forceps used to complete a continuous curvilinear capsulorrhexis. BSS on a blunt instrument was used to hydrodissect the lens. The phacoemulsification handpiece was inserted and using a Wanda chopper as a second instrument, the lens was emulsified in standard d [id number] fashion. Residual cortical material was removed using the I/A handpiece on cortical removal setting. The bag was filled with viscoelastic material and an Im[employer]iaz model [id number], power +22.5 diopter intraocular lens was folded and inserted in the capsular bag. The IOL was dialed into place using the Sinskey hook. The Malyugin ring was carefully removed from the eye. The nasal sulcus was expanded using viscoelastic. After adjusting the endolaser focus and settings, the endolaser probe was inserted into the anterior chamber just under the nasal iris and the ciliary processes were visualized. We then delivered a total of 27 shots of continuous power, 0.25 nicolas to the nasal ciliary processes. good blanching and shrinking of the tissue was noted. We carefully withdrew the laser handpiece, ensuring it was not caught on any tissue. Residual viscoelastic material was then removed using the I/A handpiece. The wounds were hydrated and found to be intact. The anterior chamber spacewas adjusted with BSS / wound burping to achieve tactile pressure in low double digits. ACantibx: Moxifloxacin was injected in the anterior chamber. A final check of the wounds confirmed good stability. Antibiotic and steroid drops were instilled. The lid speculum and drapes were removed, and the face was cleansed with wet and dry dressing. A Walters eye shield was placed. The patient tolerated the procedure well and was transferred to the PACU in stable condition. Pita Hong, was scrubbed and present for the entire surgery from start to finish. There were NO signs of surgical site infection (SSI) present at the time of surgery (PATOS). Complications: None; patient tolerated the procedure well. Submitted by: Pita Hewitt MD - 05/17/2025 * H&P - Shayan Vasquez MD - 05/17/2025 8:11 AM EDT Images from the original note were not included. Chief Concern & History Of Present Illness Brisa Mclean is a 69 y.o. female presenting with blurred vision. Past 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 She has a past medical history of Bronchitis (01/20/2025), Collagenous colitis, COPD (chronic obstructive pulmonary disease), Glaucoma, HL (hearing loss), Hyperlipidemia, Hypertension, Motion sickness, Otitis media of right ear (01/20/2025), Sinusitis (01/20/2025), Ulcerative colitis, and Viral upper respiratory illness (01/20/2025). Surgical History She has a past surgical history that includes Tubal ligation; Cervical fusion; and Colonoscopy. Family History Medical/Surgical/Social/Family History I have reviewed and updated the patient history. 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 She reports that she has quit smoking. Her smoking use included cigarettes. She started smoking about 41 years ago. She has a 41.8 pack-year smoking history. She has been exposed to tobacco smoke. She has never used smokeless tobacco. She reports that she does not currently use alcohol. She reportsthat she does not use drugs. Occupational History Occupational history[1] Employer: No address on file. Travel History Relevant International Travel History: Travel Screening Question Response Have you been in contact with someone who was sick? No / Unsure Do you have any of the following new or worsening symptoms? None of these Have you traveled internationally or domestically in the last month? No Travel History Travel since 04/17/25 No documented travel since 04/17/25 Relevant Domestic Travel History: none Immunizations reviewed VACCINE / DOSE DATE DATE DATE Flu 04/07/2020 05/09/2021 05/25/2024 Tetanus 01/12/2021 Pneumovax Shingles Allergies Methocarbamol, Levofloxacin, Methylprednisolone, and Penicillins Medications Current Medications[2] Review of Systems Eyes: Positive for visual disturbance. All other systems reviewed and are negative. Physical Exam Cardiovascular: Rate and Rhythm: Normal rate. Pulmonary: Effort: Pulmonary effort is normal. Neurological: Mental Status: She is alert. Last Recorded Vitals Blood pressure (!) 135/90, pulse 93, temperature (!) 36.2 ??C (97.2 ??F), resp. rate 20, height 1.524 m (5'), weight 41.3 kg (91 lb 0.8 oz), SpO2 96%. Relevant Results reviewed Assessment/Plan Principal Problem: Plateau iris of both eyes Active Problems: Ocular hypertension, bilateral Age-related nuclear cataract of both eyes Proceed with PHACOEMULSIFICATION, CATARACT, WITH IOL INSERTION AND ENDOSCOPIC CYCLOPHOTOCOAGULATION- Left eye [1] [2] Current Facility-Administered Medications Medication Dose Route Frequency Provider Last Rate Last Admin acetaminophen (Tylenol) tablet 1,000 mg 1,000 mg Oral Once Latonia Lucas MD flurbiprofen (Ocufen) 0.03 % ophthalmic solution 1 drop 1 drop Left Eye q5 min Pita Hewitt MD 1 drop at 05/17/25 0807 lactated Ringer's infusion 100 mL/hr Intravenous Once Latonia Lucas MD lactated Ringer's infusion 20 mL/hr Intravenous Once Татьяна Banegas CRNA lidocaine (Xylocaine) 1 % injection 0.5 mL 0.5 mL Injection Once PRN Latonia Lucas MD ondansetron (Zofran) injection 4 mg 4 mg Intravenous Once PRN Татьяна Banegas CRNA oxyCODONE (Roxicodone) immediate release tablet 5 mg 5 mg Oral q30 min PRN Татьяна Banegas CRNA phenylephrine (Mydfrin) 2.5 % ophthalmic solution 1 drop 1 drop Left Eye q5 min Pita Hewitt MD 1 drop at 05/17/25 0807 sodium chloride 0.9 % flush 10 mL 10 mL Intravenous q12h Latonia Lucas MD And sodium chloride 0.9 % flush 10 mL 10 mL Intravenous PRN Latonia Lucas MD tetracaine (Altacaine) 0.5 % ophthalmic solution 1 drop 1 drop Left Eye q5 min Pita Hewitt MD 1 drop at 05/17/25 0811 tropicamide (Mydriacyl) 1 % ophthalmic solution 1 drop 1 drop Left Eye q5 min Pita Hewitt MD1 drop at 05/17/25 0807 Cosigned by Pita Hewitt MD at 05/19/2025 9:38 AM EDT Associated attestation - Pita Hewitt MD - 05/19/2025 9:38 AM EDT Signature only. * [facility] OnFHIR - Jackie Luciano RN - 05/17/2025 7:14 AM EDT Images from the original note were not included. 37 Cataract Surgery How to care for yourself at home. ? You may go back to your normal daily activities. ? Avoid hard physical activities or lifting more than 20 pounds. ? You may shower or bathe. Wear the eye shield on for the first 3 days. ? Tape the shield over your eye while you sleep. ? Do not rub your eye. ? Use the drops your doctor gives you as ordered. ? Your glasses may not be the right strength anymore. You may still use them until you get new glasses. It may take 4 weeks or more for your eye to heal and your vision to get stable. ? Tylenol or Ibuprofen for discomfort. Your eye may feel sore or scratchy. If you have any of the following, call the Eye Clinic at [phone]. ? Fever over 101??F. ? Pain is not helped by pain medicine. ? Vision suddenly becomes worse. ? Redness or swelling gets worse. ? Increased bleeding. ? Bleeding or discharge from the eye. ? Nausea or vomiting. ? You have questions or concerns about your surgery or medicine. For emergencies, call [phone] and ask for the eye doctor associate relations specialist. * PAT Phone Note - Tamra Gabriel RN - 05/04/2025 2:25 PM EDT DO Mclean is a 69 y.o. 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 Date scheduled is 05/17/2025. Past 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[1] Family History[1] 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[1] SURGICAL HISTORY: Surgical History[1] Allergies[1] MEDICATIONS: Current Medications[1] Tamra Gabriel RN [1] Past 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: Diagnosis Date Bronchitis 01/20/2025 Collagenous colitis Collagenous colitis COPD (chronic obstructive pulmonary disease) Glaucoma HL (hearing loss) Hyperlipidemia Hypertension Motion sickness Otitis media of right ear 01/20/2025 Sinusitis 01/20/2025 Ulcerative colitis Viral upper respiratory illness 01/20/2025 [1] Family History Problem Relation Name Age of Onset Breast cancer Mother Heart failure Father Other (bypass) Father Breast cancer Sister Other (gall bladder cancer) Sister Malig Hyperthermia Neg Hx [1] 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 Tobacco Use Smoking status: Former Current packs/day: 1.00 Average packs/day: 1 pack/day for 41.8 years (41.8 ttl pk-yrs) Types: Cigarettes Start date: 1983 Passive exposure: Current Smokeless tobacco: Never Vaping Use Vaping status: Never Used Substance Use Topics Alcohol use: Not Currently Drug use: Never [1] Past Surgical History: Procedure Laterality Date CERVICAL FUSION COLONOSCOPY TUBAL LIGATION [1] Allergies Allergen Reactions Methocarbamol Hives and Other - please document in the comment field Levofloxacin Nausea And Vomiting and Vomiting Abdominal pain Methylprednisolone Palpitations Penicillins Other - please document in the comment field [1] No current facility-administered medications for this encounter. Current Outpatient Medications: albuterol, INHALE TWO PUFFS BY MOUTH EVERY 6 HOURS NEEDED FOR SHORTNESS OF BREATH OR wheezing Anoro Ellipta, Inhale 1 Inhalation. aspirin, daily. budesonide EC, Take 2 capsules by mouth daily. cholecalciferol, Take 1 tablet by mouth 1 time each day. cyclobenzaprine, TAKE ONE TABLET BY MOUTH EVERY DAY AT BEDTIME MAY CAUSE DROWSINESS dorzolamide-timolol, Administer 1 drop into both eyes 2 times a day. (Patient taking differently: Administer 1 drop into both eyes daily.) ibuprofen, Take 2 tablets by mouth every 6 hours as needed for mild pain. ipratropium-albuterol, INHALE THE CONTENTS OF 1 VIAL VIA NEBULIZER EVERY 4 TO 6 HOURS NEEDED FORSHORTNESS OF BREATH OR wheezing lisinopril, Take 1 tablet by mouth daily. rosuvastatin, Take 1 tablet by mouth daily. coenzyme Q-10, coenzyme Q10 200mg qd (Patient not taking: Reported on 04/15/2025) oxyCODONE-acetaminophen, TAKE ONE TABLET BY MOUTH TWICE DAILY NEEDED FOR PAIN MAY CAUSE DROWSINESS (Patient not taking: Reported on 05/04/2025) * Preprocedure Instructions - Tamra Gabriel RN - 05/04/2025 2:19 PM EDT Home Medication Instructions Current Medications Medication Instructions albuterol 108 (90 Base) MCG/ACT inhaler Take as needed Anoro Ellipta 62.5-25 MCG/ACT aerosol powder aerosol powder Take morning of surgery aspirin 81 MG EC tablet Take morning of surgery budesonide EC (Entocort EC) 3 MG 24 hr capsule Take morning of surgery cholecalciferol (Vitamin D-3) 50 MCG (2000 UT) tablet Hold day of surgery cyclobenzaprine (Flexeril) 10 MG tablet Take night before surgery dorzolamide-timolol (Cosopt) 2-0.5 % ophthalmic solution Take as prescribed ibuprofen 200 MG tablet Hold 3-5 days before surgery ipratropium-albuterol (Duo-Neb) 0.5-2.5 mg/3 mL nebulizer solution Take as needed lisinopril 10 MG tablet Hold day of surgery rosuvastatin (Crestor) 20 MG tablet Take morning of surgery General Preoperative Instructions You will be called the business day before surgery with your arrival time Do not eat anything after midnight. Please hydrate well with clear liquids up to 2 hours prior to arrival for surgery (water, pedialyte, gatorade, apple juice). Nothing red, purple, blue or carbonated. No alcohol or smoking prior to surgery Arrive on time to avoid delays Parking/Registration procedure explained. Park at [address] Level 1 (Shuttle). [place] on the ground floor of [facility] [address]. You MUST have a responsible adult available for transport to and from hospital Visitation policy for the day of surgery reviewed Bring insurance card, photo ID, along with power of research attorney, guardianship or advanced directives if applicable Do not bring money, jewelry or other valuables. No makeup, lotion, deodorant, perfume, or contact lenses. Hibiclens bathing instructions reviewed if applicable Notify surgeon of fever, illness, any changes or if you decide not to have surgery Diabetes Instructions (If applicable) Take diabetes medication as instructed You may have up to 4 ounces of apple juice 2 hours prior to arrival for surgery for low glucose documented in this encounter Plan of Treatment Upcoming Encounters Date Type Department Care Team (Late st Contact Info) Description 07/01/2025 2:00 PM EST Office Visit [facility] [address] [place] [address] Pita Hewitt MD [address] [place] [address] 08/25/2025 1:15 PM EST Office Visit [facility] [address] [place] [address] Rita Amezcua MD [address] [place] [address] 02/16/2026 10:00 AM EDT Office Visit [facility] [address] [place] [address] Hernandez Arzate MD [address] [place] [id number] documented as of this encounter Procedures Procedure Name Priority Date/Time Associated Diagnosis Comments [place] XCAPSL CTRC RMVL INSJ IO LENS PROSTH CPLX W/ECP 05/17/2025 8:26 AM EDT Ocular hypertension, bilateral Age-related nuclear cataract of both eyes Plateau iris of both eyes [place] XCAPSL CTRC RMVL INSJ IO LENS PROSTH W/ECP 05/17/2025 8:26 AM EDT Ocular hypertension, bilateral Age-related nuclear cataract of both eyes Plateau iris of both eyes documented in this encounter Visit Diagnoses Diagnosis Plateau iris of both eyes- Primary Age-related nuclear cataract of both eyes Ocular hypertension, 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625 mg, Intravenous, Once, 1 dose, On Sat05/17/25 at 1030, Routine Given 05/17/2025 9:41 AM EDT 0.625 mg flurbiprofen (Ocufen) 0.03 % ophthalmic solution 1 drop 1 drop, Left Eye, Every 5 min, 4 doses, First dose on Sat05/17/25 at 0845, Last dose on Sat05/17/25 at 0900, Routine, Holding - Preprocedure Given 05/17/2025 8:19 AM EDT 1 drop Given 05/17/2025 8:16 AM EDT 1 drop Given 05/17/2025 8:11 AM EDT 1 drop lactated Ringer's infusion 20 mL/hr, Intravenous, Once, 1 dose, On Sat05/17/25 at 0845, Routine New Bag 05/17/2025 8:26 AM EDT 20 mL/hr 20 mL/hr lidocaine (Xylocaine) 1 % injection 0.5 mL 0.5 mL, Injection, Once as needed, 1 dose, Starting on Sat05/17/25 at 0752, Until Sat05/17/25 at 1244, Routine, Holding - Preprocedure, If needed to start an IV. ondansetron (Zofran) injection 4 mg 4 mg, Intravenous, Once as needed, 1 dose, Starting on Sat05/17/25 at 0752, Until Sat05/17/25 at 1244, Routine, Recovery (Phase I only), nausea, vomiting ondansetron (Zofran) injection 4 mg 4 mg, Intravenous, Once as needed, 1 dose, Starting on Sat05/17/25 at 0908, Until Sat05/17/25 at 0919, Routine, Recovery (Phase I only), nausea, vomiting Given 05/17/2025 9:19 AM EDT 4 mg oxyCODONE (Roxicodone) immediate release tablet 5 mg 5 mg, Oral, Every 30 min PRN, 2 doses, Starting on Sat05/17/25 at 0752, Until Sat05/17/25 at 1244, Routine, Recovery (Phase I only), DVPRS >/= 5, CPOT >/= 3, FLACC >/= 4, PAINAD >/= 4 oxyCODONE (Roxicodone) immediate release tablet 5 mg 5 mg, Oral, Every 30 min PRN, 2 doses, Starting on Sat05/17/25 at 0908, Until Sat05/17/25 at 1244, Routine, Recovery (Phase I only), DVPRS >/= 5, CPOT >/= 3, FLACC >/= 4, PAINAD >/= 4 phenylephrine (Mydfrin) 2.5 % ophthalmic solution 1 drop 1 drop, Left Eye, Every 5 min, 3 doses, First dose on Sat05/17/25 at 0845, Last dose on Sat05/17/25 at 0855, Routine, Holding - Preprocedure Given 05/17/2025 8:16 AM EDT 1 drop Given 05/17/2025 8:12 AM EDT 1 drop Given 05/17/2025 8:07 AM EDT 1 drop sodium chloride 0.9 % flush 10 mL 10 mL, Intravenous, Every 12 hours, First dose on Sat05/17/25 at 0845, Until Discontinued, Routine, Holding - Preprocedure sodium chloride 0.9 % flush 10 mL 10 mL, Intravenous, As needed, Starting on Sat05/17/25 at 0752, Until Sat05/17/25 at 1244, Routine, Holding - Preprocedure, line care tetracaine (Altacaine) 0.5 % ophthalmic solution 1 drop 1 drop, Left Eye, Every 5 min, 4 doses, First dose on Sat05/17/25 at 0845, Last dose on Sat05/17/25 at 0900, Routine, Holding - Preprocedure Given 05/17/2025 8:19 AM EDT 1 drop Given 05/17/2025 8:16 AM EDT 1 drop Given 05/17/2025 8:11 AM EDT 1 drop tropicamide (Mydriacyl) 1 % ophthalmic solution 1 drop 1 drop, Left Eye, Every 5 min, 4 doses, First dose on Sat05/17/25 at 0845, Last dose on Sat05/17/25 at 0900, Routine, Holding - Preprocedure Given 05/17/2025 8:19 AM EDT 1 drop Given 05/17/2025 8:16 AM EDT 1 drop Given 05/17/2025 8:11 AM EDT 1 drop documented in this encounter Active and Recently Administered Medications Times are shown in EDT. Scheduled Medication Order 05/15/2025 05/16/2025 05/17/2025 acetaminophen (Tylenol) tablet 1,000 mg (COMPLETED) 1,000 mg, Oral, Once, 1 dose, On Sat05/17/25 at 0845, Routine, Holding - Preprocedure 0818 (Given - Provid er: Rosa Chappell RN) droperidol (Inapsine) injection 0.625 mg (COMPLETED) 0.625 mg, Intravenous, Once, 1 dose, On Sat05/17/25 at 1030, Routine 0941 (Given - Provid er: Wendy Aguayo RN) flurbiprofen (Ocufen) 0.03 % ophthalmic solution 1 drop (COMPLETED) 1 drop, Left Eye, Every 5 min, 4 doses, First dose on Sat05/17/25 at 0845, Last dose on Sat05/17/25 at 0900, Routine, Holding - Preprocedure 0807 (Given - Provid er: Rosa Chappell RN)0811 (Given - Provider: Rosa Chappell RN)0816 (Given - Provider: Rosa Chappell RN)0819 (Given - Provider: Rosa Chappell RN) lactated Ringer's infusion (COMPLETED) 100 mL/hr, Intravenous, Once, 1 dose, On Sat05/17/25 at 0845, Routine 0831 (New Bag - Prov ider: Татьяна Fowler CRNA)0916 (Stopped - Provider: Татьяна Fowler CRNA) lactated Ringer's infusion 20 mL/hr, Intravenous, Once, 1 dose, On Sat05/17/25 at 0845, Routine 0826 (New Bag - Prov ider: Rosa Chappell RN) phenylephrine (Mydfrin) 2.5 % ophthalmic solution 1 drop (COMPLETED) 1 drop, Left Eye, Every 5 min, 3 doses, First dose on Sat05/17/25 at 0845, Last dose on Sat05/17/25 at 0855, Routine, Holding - Preprocedure 0807 (Given - Provid er: Rosa Chappell RN)0812 (Given - Provider: Rosa Chappell RN)0816 (Given - Provider: Rosa Chappell RN) sodium chloride 0.9 % flush 10 mL(Linked Group 1) 10 mL, Intravenous, Every 12 hours, First dose on Sat05/17/25 at 0845, Until Discontinued, Routine, Holding - Preprocedure 0845 (Canceled Entry - Provider: Automatic Discharge Provider - Comment: Automatically canceled at discontinue of medication order) tetracaine (Altacaine) 0.5 % ophthalmic solution 1 drop (COMPLETED) 1 drop, Left Eye, Every 5 min, 4 doses, First dose on Sat05/17/25 at 0845, Last dose on Sat05/17/25 at 0900, Routine, Holding - Preprocedure 0807 (Given - Provid er: Rosa Chappell RN)0811 (Given - Provider: Rosa Chappell RN)0816 (Given - Provider: Rosa Chappell RN)0819 (Given - Provider: Rosa Chappell RN) tropicamide (Mydriacyl) 1 % ophthalmic solution 1 drop (COMPLETED) 1 drop, Left Eye, Every 5 min, 4 doses, First dose on Sat05/17/25 at 0845, Last dose on Sat05/17/25 at 0900, Routine, Holding - Preprocedure 0807 (Given - Provid er: Rosa Chappell RN)0811 (Given - Provider: Rosa Chappell RN)0816 (Given - Provider: Rosa Chappell RN)0819 (Given - Provider: Rosa Chappell RN) PRN Medication Order 05/15/2025 05/16/2025 05/17/2025 balanced salts (BSS) ophthalmic solution (CANCELED) As needed, Starting on Sat05/17/25 at 0846, Until Sat05/17/25 at 0910, Routine 0846 (Given - Provid er: Pita Hewitt MD - Comment: on intraoperative field for use) EPINEPHrine PF (Sulfite-Free) (Adrenalin) 0.3 mL in balanced salts (BSS) 500 mL OR irrigation (CANCELED) Continuous PRN, Starting on Sat05/17/25 at 0842, Until Sat05/17/25 at 0910, Routine 0842 (Given - Provid er: Pita Hewitt MD - Comment: centurion device irrigation) lidocaine (Xylocaine) 1 % injection 0.5 mL 0.5 mL, Injection, Once as needed, 1 dose, Starting on Sat05/17/25 at 0752, Until Sat05/17/25 at 1244, Routine, Holding - Preprocedure, If needed to start an IV. lidocaine PF (Xylocaine) 1 % injection (CANCELED) As needed, Starting on Sat05/17/25 at 0844, Until Sat05/17/25 at 0910, Routine, Intraprocedure 0844 (Given - Provid er: Pita Hewitt MD - Comment: 2% PF Lidocaine mixed on the field at 1:1 ratio with BSS to make 1% Lidocaine concentration.) Non-Formulary Medication (CANCELED) As needed, Starting on Sat05/17/25 at 0853, Intraprocedure 0853 (Given - Provid er: Pita Hewitt MD - Comment: Moxifloxacin Hcl 0.1% (1 mg/mL) Ophthalmic injectable solution. [facility] [id number]. aware of allergy to levofloxacin - GI reaction.) ofloxacin (Ocuflox) 0.3 % ophthalmic solution (CANCELED) As needed, Starting on Sat05/17/25 at 0905, Until Sat05/17/25 at 0910, Routine, Intraprocedure 0905 (Given - Provid er: Pita Hewitt MD - Comment: MD aware of allergy - GI reaction) ondansetron (Zofran) injection 4 mg 4 mg, Intravenous, Once as needed, 1 dose, Starting on Sat05/17/25 at 0752, Until Sat05/17/25 at 1244, Routine, Recovery (Phase I only), nausea, vomiting 0918 (Canceled Entry - Provider: Automatic Discharge Provider - Comment: Automatically canceled at discontinue of medication order) ondansetron (Zofran) injection 4 mg (COMPLETED) 4 mg, Intravenous, Once as needed, 1 dose, Starting on Sat05/17/25 at 0908, Until Sat05/17/25 at 0919, Routine, Recovery (Phase I only), nausea, vomiting 09 (Given - Provid er: Wendy Aguayo RN) oxyCODONE (Roxicodone) immediate release tablet 5 mg 5 mg, Oral, Every 30 min PRN, 2 doses, Starting on Sat05/17/25 at 0752, Until Sat05/17/25 at 1244, Routine, Recovery (Phase I only), DVPRS >/= 5, CPOT >/= 3, FLACC >/= 4, PAINAD >/= 4 oxyCODONE (Roxicodone) immediate release tablet 5 mg 5 mg, Oral, Every 30 min PRN, 2 doses, Starting on Sat05/17/25 at 0908, Until Sat05/17/25 at 1244, Routine, Recovery (Phase I only), DVPRS >/= 5, CPOT >/= 3, FLACC >/= 4, PAINAD >/= 4 prednisoLONE acetate (Pred-Forte) 1 % ophthalmic suspension (CANCELED) As needed, Starting on Sat05/17/25 at 0906, Until Sat05/17/25 at 0910, Routine, Intraprocedure 0906 (Given - Provid er: Pita Hewitt MD - Comment: MD aware of documented allergy to drug in the same class) sodium chloride 0.9 % flush 10 mL(Linked Group 1) 10 mL, Intravenous, As needed, Starting on Sat05/17/25 at 0752, Until Sat05/17/25 at 1244, Routine, Holding - Preprocedure, line care tetracaine (Altacaine) 0.5 % ophthalmic solution (CANCELED) As needed, Starting on Sat05/17/25 at 0843, Until Sat05/17/25 at 0910, Routine, Intraprocedure 0835 (Given - Provid er: Pita Hewitt MD)0843 (Given - Provider: Pita Hewitt MD) Linked Groups Order Group 1: Insert peripheral IV (CANCELED) Once, On Sat05/17/25 at 0753, For 1 occurrence, Holding - Preprocedure And Saline lock IV (CANCELED) Once, On Sat05/17/25 at 0753, For 1 occurrence, Holding - Preprocedure And sodium chloride 0.9 % flush 10 mLJump to med 10 mL, Intravenous, Every 12 hours, First dose on Sat05/17/25 at 0845, Until Discontinued, Routine, Holding - Preprocedure And sodium chloride 0.9 % flush 10 mLJump to med 10 mL, Intravenous, As needed, Starting on Sat05/17/25 at 0752, Until Sat05/17/25 at 1244, Routine, Holding - Preprocedure, line care documented in this encounter Additional Health Concerns Assessment Noted Time PHQ-9 Depression Total Score: 0 02/11/20 10:29 AM EDT A fall risk assessment has been complete d for the patient 04/22/2025 2:09 PM EDT A Body Mass Index follow-up plan has been documented for the patient 04/20/2025 4:27 PM EDT documented as of this encounter Care Teams Maritime Engineer Relationship Specialty Start Date End Date Loy Cruz MD PCP - General 08/31/22 documented as of this encounter
--- OUTSIDE RECORDS SUMMARY | 2025-05-17 07:20 | XMS_ITS | Encounter Summary ---
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, bilateral [H40.053] Age-related nuclear cataract of both eyes [H25.13] Plateau iris of both eyes [H21.82] Procedures MS XCAPSL CTRC RMVL INSJ IO LENS PROSTH W/ECP MS XCAPSL CTRC RMVL INSJ IO LENS PROSTH CPLX W/ECP MS XCAPSL CTRC RMVL INSJ IO LENS PROSTH CPLX W/ECP MS ECP CILIARY BODY DSTRJ W/O RMVL CRYSTALLINE LENS PHACOEMULSIFICATION, CATARACT, WITH IOL INSERTION AND ENDOSCOPIC CYCLOPHOTOCOAGULATION PHACOEMULSIFICATION, CATARACT, WITH IOL INSERTION AND ENDOSCOPIC CYCLOPHOTOCOAGULATION Pita Hewitt MD [address] [address] Phone: tel: fax: [facility] [address] [place] [address] Phone: tel: Referral ID Status Reason Start Date Expiration Date Visits Re quested Visits Authorized [id number] 1 1 Encounter Details Date Type Department Care Team (Latest Contact Info) Description 05/17/2025 8:20 AM EDT - 05/17/2025 9:10 AM EDT [facility] [address] [place] [address] Pita Hewitt MD [address] [place] [address] PHACOEMULSIFICATION, CATARACT, WITH IOL INSERTION AND ENDOSCOPIC CYCLOPHOTOCOAGULATION [10968 (CPT ) +1 more] Surgery Details Date/Time Status Location OR Service Patient Class Case Class Case Type Trauma Case? 05/17/2025 8:20 AM Posted [facility] 4OR08 Ophthalmology [facility] Outpatient Surgery E-Electi ve Panel 1 Procedure LRB Anes Op Region Wound Class Comments PHACOEMULSIFICATION, CATARAC T, WITH IOL INSERTION AND ENDOSCOPIC CYCLOPHOTOCOAGULATION Left Monitor Anesthesia Care Surgeon Surgeon Role Service Panel Shayan Vasquez MD Resident - Assisting 1 Pita Hewitt MD Primary Ophthalmology 1 documented in this encounter 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 Tobacco Use Types Packs/Day Years [...] Sign Reading Time Taken Comments Blood Pressure 135/90 05/17/2025 7:13 AM EDT Pulse 93 05/17/2025 7:13 AM EDT Temperature 36.2 C (97.2 F) 05/17/2025 7:13 AM EDT Respiratory Rate 20 05/17/2025 7:13 AM EDT Oxygen Saturation 96% 05/17/2025 7:13 AM EDT Inhaled Oxygen Concentration - - Weight 41.3 kg (91 lb 0.8 oz) 05/17/2025 7:13 AM EDT Height 152.4 cm (5') 05/17/2025 7:13 AM EDT Body Mass Index 17.78 05/17/2025 7:13 AM EDT documented in this encounter Functional Status * Calculated C-SSRS Risk Score (Lifetime/Recent) Answer Date of Assessment Author No Risk Indicated 05/17/2025 8:30 AM EDT Rosa Chappell RN * Question Answer Date of Assessment Author 1. Wish to be (Past 1 Month) No 8:30 AM EDT Rosa Chappell RN 2. Non-Specific Active Suici enid Thoughts (Past 1 Month) No 05/17/2025 8:30 AM EDT Rosa Chappell RN 6. Suicidal Behavior (Lifetime) No 8:30 AM EDT Rosa Chappell RN documented as of this encounter Discharge Instructions * Discharge Instructions* Jackie Luciano RN - 05/17/2025 7:14 AM [...] of consciousness or you can't be awakened [employer] last reviewed this educational content on 07/22/2021 ?? [id number] The [employer], [employer]. All rights reserved. This information is not [...] is free. The free telephone quit line: (2-465-YGKTORF). Support groups: Your local health department may offer these virtually or in person. [place]'s resources to help you quit: http://www.[place].edu/TobaccoFree/ - Click on the Quit Here! tab. Web sites that offer help quitting: www.smokefree.gov, www.becomeanex.org. Tobacco Treatment Counselors and your health care provider. Medicare and Medicaid pay for visits todiscuss quitting tobacco. employees, retirees, and their spouses or sponsored dependents can get free nicotine replacementtherapy and coaching. Visit www.[place].edu/HR/Wellness/consults.html. Visit the [facility]. [...] the following, call the Eye Clinic at [phone]. ? Fever over 101??F. ? Pain is not helped by pain medicine. ? Vision suddenly becomes worse. ? Redness or swelling gets worse. ? Increased bleeding. ? Bleeding or discharge from the eye. ? Nausea or vomiting. ? You have questions or concerns about your surgery or medicine. For emergencies, call [phone] and ask for the eye doctor personal property appraiser. * Op Note - Pita Hewitt MD - 05/17/2025 8:40 AM EDT Operative Note Date: 05/17/25 Location: [facility] OR Name: Brisa Mclean, : [...] Attending Surgeon(s): * Pita Hewitt - Primary Business Development Specialist(s): * Shayan Vasquez MD - Resident - Assisting Anesthesia: Monitor Anesthesia Care ASA: III Blood Administration: Blood Product Administration History None Estimated Blood Loss: Minimal Drains: * None in log * Implants Type Name Action Serial No. LENS MONOFOCAL CLEAR [id number] 22.5 - [id number] Implanted [id number] Specimen: Findings: poor dilation with floppy iris, [...] the lens was emulsified in standard d uierf-plr-gtnribh fashion. Residual cortical material was removed using [...] tactile pressure in low double digits. ACantibx: Mo xifloxacin was injected in the anterior chamber. A final check of the wounds confirmed good stability. Antibiotic and steroid drops were instilled. The lid speculum and drapes were removed, and the face was cleansed with wet and dry dressing. A Walters eye shield was placed. The patient tolerated the procedure well and was transferred to the PACU in stable condition. I, Pita P Hewitt, was scrubbed and present for the entire [...] 9:38 AM EDT Signature only. * Zach OnFHMALIK - Jackie Luciano RN - 05/17/2025 7:14 [...] the following, call the Eye Clinic at [phone]. ? Fever over 101??F. ? Pain is not helped by pain medicine. ? Vision suddenly becomes worse. ? Redness or swelling gets worse. ? Increased bleeding. ? Bleeding or discharge from the eye. ? Nausea or vomiting. ? You have questions or concerns about your surgery or medicine. For emergencies, call [phone] and ask for the eye doctor personal property appraiser. * PAT Phone Note - Tamra Gabriel [...] Level [address] (ped [address]) Level 1 (Shuttle). [place] on the ground floor of [place]. You MUST have a responsible adult [...] Description 07/01/2025 2:00 PM EST Office Visit [facility] [address] [place] [address] Pita Hewitt MD [address] [place] [address] 08/25/2025 1:15 PM EST Office Visit [facility] [address] [place] [address] Rita Amezcua MD [address] [place] [address] 02/16/2026 10:00 AM EDT Office Visit [facility] [address] [facility] [place] [address] Hernandez Arzate MD [address] [place] [id number] documented as of this encounter Procedures Procedure Name Priority Date/Time Associated Diagnosis Comments MS XCAPSL CTRC RMVL INSJ IO LENS PROSTH CPLX W/ECP 05/17/2025 8:26 AM EDT Ocular hypertension, bilateral Age-related nuclear cataract of both eyes Plateau iris of both eyes MS XCAPSL CTRC RMVL INSJ IO LENS PROSTH W/ECP 05/17/2025 8:26 AM EDT Ocular hypertension, bilateral Age-related nuclear cataract of both eyes Plateau iris of both eyes documented in this encounter Visit Diagnoses Diagnosis Plateau iris of both eyes- Primary Age-related nuclear cataract of both eyes Ocular hypertension, 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, bilateral Age-related nuclear cataract of both eyes Ocular hypertension, bilateral Age-related [...] Given 05/17/2025 8:18 AM EDT 1,000 mg balanced salts (BSS) ophthalmic solution As needed, Starting on Sat05/17/25 at 0846, Until Sat05/17/25 at 0910, Routine Given 05/17/2025 8:46 AM EDT 15 mL droperidol (Inapsine) injection 0.625 mg 0.625 mg, Intravenous, Once, 1 dose, On Sat05/17/25 at 1030, Routine Given 05/17/2025 9:41 AM EDT 0.625 mg EPINEPHrine PF (Sulfite-Free) (Adrenalin) 0.3 mL in balanced salts (BSS) 500 mL OR irrigation Continuous PRN, Starting on Sat05/17/25 at 0842, Until Sat05/17/25 at 0910, Routine Given 05/17/2025 8:42 AM EDT 500.3 mL Left Eye flurbiprofen (Ocufen) 0.03 % ophthalmic solution 1 [...] IV. lidocaine PF (Xylocaine) 1 % injection As needed, Starting on Sat05/17/25 at 0844, Until Sat05/17/25 at 0910, Routine, Intraprocedure Given 05/17/2025 8:44 AM EDT 1.5 mL Left Eye Non-Formulary Medication As needed, Starting on Sat05/17/25 at 0853, Intraprocedure Given 05/17/2025 8:53 AM EDT 0.1 mL Left Eye ofloxacin (Ocuflox) 0.3 % ophthalmic solution As needed, Starting on Sat05/17/25 at 0905, Until Sat05/17/25 at 0910, Routine, Intraprocedure Given 05/17/2025 9:05 AM EDT 1 drop ondansetron (Zofran) injection 4 mg 4 mg, [...] Given 05/17/2025 8:07 AM EDT 1 drop prednisoLONE acetate (Pred-Forte) 1 % ophthalmic suspension As needed, Starting on Sat05/17/25 at 0906, Until Sat05/17/25 at 0910, Routine, Intraprocedure Given 05/17/2025 9:06 AM EDT 1 drop sodium chloride 0.9 [...] Given 05/17/2025 8:11 AM EDT 1 drop tetracaine (Altacaine) 0.5 % ophthalmic solution As needed, Starting on Sat05/17/25 at 0843, Until Sat05/17/25 at 0910, Routine, Intraprocedure Given 05/17/2025 8:43 AM EDT 2 drops Given 05/17/2025 8:35 AM EDT 2 drops tropicamide (Mydriacyl) 1 % ophthalmic solution 1 [...] Rosa Chappell RN)0819 (Given - Provider: Rosa Weikel, RN) lactated Ringer's infusion (COMPLETED) 100 mL/hr, [...] 0.1% (1 mg/mL) Ophthalmic injectable solution. [facility] [id number]. aware of allergy to levofloxacin - GI [...] documented as of this encounter Care Teams In Flight Refueling System Repairer Relationship Specialty Start Date End Date Loy Cruz MD PCP - General 08/31/22 documented as of this encounter
--- OUTSIDE RECORDS SUMMARY | 2025-05-17 07:31 | XMS_ITS | Encounter Summary ---
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] Procedures VT XCAPSL CTRC RMVL INSJ IO LENS PROSTH W/ECP VT XCAPSL CTRC RMVL INSJ IO LENS PROSTH CPLX W/ECP VT XCAPSL CTRC RMVL INSJ IO LENS PROSTH CPLX W/ECP VT ECP CILIARY BODY DSTRJ W/O RMVL CRYSTALLINE LENS PHACOEMULSIFICATION, CATARACT, WITH IOL INSERTION AND ENDOSCOPIC CYCLOPHOTOCOAGULATION PHACOEMULSIFICATION, CATARACT, WITH IOL INSERTION AND ENDOSCOPIC CYCLOPHOTOCOAGULATION Pita Hewitt MD [address] [address] Phone: tel: fax: [facility] [address] [place] [address] Phone: tel: Referral ID Status Reason Start Date Expiration Date Visits Re quested Visits Authorized [id number] 1 1 Encounter Details Date Type Department Care Team ([facility] st Contact Info) Description 05/17/2025 8:31 AM EDT Anesthesia Event [facility] [address] [place] [address] Latonia Lucas MD [address] [place] [address] Anesthesia Record Procedure Summary Procedure Name Responsible Anesthesiologist Anesthesia Start Time Anesthesia Stop Time PHACOEMULSIFICATION, CATARACT, WITH IOL INSERTION AND ENDOSCOPIC CYCLOPHOTOCOAGULATION (Left) Latonia Lucas MD 05/17/25 0831 05/17/25 0 916 Events Date Time Event Comment 05/17/2025 0828 0831 In Room 0831 An Start The patient was reevaluated immediately before sedation and remains eligible for anesthesia plan. 0831 An Start Data 0835 An Induction The patient was reevaluated immediately before moderate or deep sedation use and before anesthesia induction. 0839 Anesthesia Ready 0840 Proc Start 0908 Proc Fin 0910 Out of Room 0910 an stop data 0916 Handoff to Receiving I compl eted my handoff to the receiving clinician during which we: 1. Identified the patient 2. Identified the responsible provider 3. Reviewed the pertinent medical history 4. Discussed the surgical course 5. Reviewed intra-op anesthesia management and issues during anesthesia 6. Set expectations for post-procedure period 7. Allowed opportunity for questions and acknowledgement of understanding. 0916 An Stop Meds Name Total fentaNYL (Sublimaze) injection 50 mcg/mL 100 mcg midazolam (Versed) injection 1 mg/mL 2 m g ketamine (Ketalar) injection 10 mg/mL 15 mg dexmedetomidine (Precedex) injection 100 mcg/mL 12 mcg lactated Ringer's infusion 250 mL * Agents Name O2 * Blood No blood administrations on file. Lines, Drains, and Airways Type Details Placement Removal Wound 05/17/25; Surgical; Eye; Left 05/17/25 0000 by Claudia Alarcon RN Peripheral IV Placement Date: 04/22 02/12; Placement Time: 08; Catheter Size: 22 G; Orientation: Posterior, Right; Location: Hand; Site Prep: Chlorhexidine ; Local Anesth: None; Technique: Anatomical landmarks; Inserted by: DIMA Lee; Insertion Attempts: 1; Patient Tolerance: Tolerated well; Removal Date: 05/17/25; Removal Time: 1017 05/17/25 0825 by Rosa Chappell RN 05/17/25 1017 by Wendy Aguayo RN documented in this encounter 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 Tobacco [...] as of this encounter Functional Status * Calculated C-SSRS [...] Chappell RN documented as of this encounter Miscellaneous Notes * Anesthesia Postprocedure Evaluation - Татьяна Banegas CRNA - 05/17/2025 9:16 AM EDT Patient: Brisa Mclean Anesthesia Type: MAC Vitals Value Taken Time BP 100/81 05/17/25 09:12 Temp 36.1 05/17/25 09:16 Pulse 76 05/17/25 09:16 Resp 26 05/17/25 09:16 SpO2 96 % 05/17/25 09:14 Vitals shown include unfiled device data. Anesthesia Post Evaluation Patient location during evaluation: PACU Patient participation: complete - patient participated Level of consciousness: baseline and awake Pain management: adequate (pain score 0-3) Airway patency: natural airway Cardiovascular status: acceptable Respiratory status: nonlabored ventilation, spontaneous ventilation and room air Hydration status: stable Nausea/Vomiting: No Comments: Monitors in place once arrived to PACU. Report to WATCH ASSEMBLER and care accepted. Vital signs stable. No notable events documented. * Anesthesia Preprocedure Evaluation - Latonia Lucas MD - 05/15/2025 9:37 PM EDT Images from the original note were not included. HPI Brisa Mclean is a 69 y.o. 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 Date scheduled is 05/17/2025. 69yo female for left cataract. She has a history of HTN, Ulcerative Colitis, and COPD (uses inhalerprn). Past 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[1] Family History[2] 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[3] SURGICAL HISTORY: Surgical History[4] Allergies[5] MEDICATIONS: Current Medications[6] Latonia Lucas MD Patient: Brisa Mclean HPI Brisa Mclean is a 69 y.o. female with body mass index is unknown because there is no height orweight on file. who presents with Plateau iris of both eyes, now for PHACOEMULSIFICATION, CATARACT,WITH IOL INSERTION AND ENDOSCOPIC CYCLOPHOTOCOAGULATION (Left) Procedure Information Date/Time: 05/17/25819 Procedure: PHACOEMULSIFICATION, CATARACT, WITH IOL INSERTION AND ENDOSCOPIC CYCLOPHOTOCOAGULATION (Left) Location: [facility] [place] [facility] Surgeons: Pita Hewitt MD Relevant Problems Cardio (+) Dyspnea (+) Hemorrhoids (+) Migraine headache (+) Partial retinal vein occlusion, left Neuro/Psych (+) Headache (+) Migraine headache Pulmonary (+) Chronic obstructive pulmonary disease (+) Pneumonia (+) Strep sore throat Other (+) Arthritis ALLERGIES Allergies[7] NPO STATUS Past 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[8] AIRWAY HISTORY Airway Detailed Review Displaying the 20 most recent records Date Difficult Airway Blade Size ETT Size C-L Class Final Type Intubation Method 04/18/23 - - - - - - MEDICATIONS Outpatient Current Outpatient Medications Medication Instructions albuterol 108 (90 Base) MCG/ACT inhaler INHALE TWO PUFFS BY MOUTH EVERY 6 HOURS NEEDED FOR SHORTNESS OF BREATH OR wheezing Anoro Ellipta 62.5-25 MCG/ACT aerosol powder aerosol powder 1 Inhalation aspirin 81 MG EC tablet Daily budesonide EC (ENTOCORT EC) 6 mg, Daily cholecalciferol (VITAMIN D-3) 2,000 Units, ZZ Daily RT coenzyme Q-10 10 MG capsule coenzyme Q10 200mg qd cyclobenzaprine (Flexeril) 10 MG tablet TAKE ONE TABLET BY MOUTH EVERY DAY AT BEDTIME MAY CAUSE DROWSINESS dorzolamide-timolol (Cosopt) 2-0.5 % ophthalmic solution 1 drop, Both Eyes, 2 times daily ibuprofen 400 mg, Every 6 hours PRN ipratropium-albuterol (Duo-Neb) 0.5-2.5 mg/3 mL nebulizer solution INHALE THE CONTENTS OF 1 VIAL VIA NEBULIZER EVERY 4 TO 6 HOURS NEEDED FOR SHORTNESS OF BREATH OR wheezing lisinopril 10 mg, Daily oxyCODONE-acetaminophen (Percocet) 5-325 MG tablet TAKE ONE TABLET BY MOUTH TWICE DAILY NEEDED FOR PAIN MAY CAUSE DROWSINESS rosuvastatin (CRESTOR) 20 mg, Daily Scheduled Current Scheduled Medications[9] PRNs Current PRN Medications[10] SURGICAL HX: Surgical History[11] SOCIAL HX: 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[12] OBJECTIVE DATA LABS No results found for: WBC , HGB , HCT , MCV , PLT No results found for: CALCIUM , BUN , CREATININE , BCR , NA , K , CL , CO2 , AG , CA Type and Screen No results found for: ABO No results found for: HGBA1C No results found for: PGLU , GLUCOSE ABG No results found for: PHART , SSE9CPL , PO2ART , SO2ART , BEART , VRW1UEA , HCTART , SODIUMART , POTASSIUMART , POCTCL , POCGLU , IONCALART , LACTATE No results found for: PH , PCO2 , PO2 , [id number] , BASEEXC , HCTSYR , KSYR , CLSYR , GLUSYR , CAION , LACTATE ECHO No echocardiogram results found for the past 12 months PFTs No results found for: PHT1SDX , OSJ4XDBC , OKO2JYV , FVCPRED BP Readings from Last 5 Encounters: 02/10/25 137/85 Physical Exam Airway Mallampati: III Mouth opening: normal TM distance: >3 FB Cardiovascular Rhythm: regular Rate: normal Dental - normal exam Pulmonary Breath sounds clear to auscultation Neurological Oriented: normal to time, normal to place and normal to person Skin Musculoskeletal Extremities Anesthesia Plan ASA 3 Plan was reviewed with: BRISKET PULLER Anesthesia technique(s) discussed with the patient/family: MAC Anesthesia plan agreed upon was: MAC Anesthetic plan and risks discussed with patient. Anesthesia Evaluation [1] Past 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: Diagnosis Date Bronchitis 01/20/2025 Collagenous colitis Collagenous colitis COPD (chronic obstructive pulmonary disease) Glaucoma HL (hearing loss) Hyperlipidemia Hypertension Motion sickness Otitis media of right ear 01/20/2025 Sinusitis 01/20/2025 Ulcerative colitis Viral upper respiratory illness 01/20/2025 [2] Family History Problem Relation Name Age of Onset Breast cancer Mother Heart failure Father Other (bypass) Father Breast cancer Sister Other (gall bladder cancer) Sister Malig Hyperthermia Neg Hx [3] 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 Tobacco Use Smoking status: Former Current packs/day: 1.00 Average packs/day: 1 pack/day for 41.8 years (41.8 ttl pk-yrs) Types: Cigarettes Start date: 1983 Passive exposure: Current Smokeless tobacco: Never Vaping Use Vaping status: Never Used Substance Use Topics Alcohol use: Not Currently Drug use: Never [4] Past Surgical History: Procedure Laterality Date CERVICAL FUSION COLONOSCOPY TUBAL LIGATION [5] Allergies Allergen Reactions Methocarbamol Hives and Other - please document in the comment field Levofloxacin Nausea And Vomiting and Vomiting Abdominal pain Methylprednisolone Palpitations Penicillins Other - please document in the comment field [6] No current facility-administered medications for this encounter. [...] DROWSINESS (Patient not taking: Reported on 05/04/2025) [7] Allergies Allergen Reactions Methocarbamol Hives and Other - please document in the comment field Levofloxacin Nausea And Vomiting and Vomiting Abdominal pain Methylprednisolone Palpitations Penicillins Other - please document in the comment field [8] Past 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: Diagnosis Date Bronchitis 01/20/2025 Collagenous colitis Collagenous colitis COPD (chronic obstructive pulmonary disease) Glaucoma HL (hearing loss) Hyperlipidemia Hypertension Motion sickness Otitis media of right ear 01/20/2025 Sinusitis 01/20/2025 Ulcerative colitis Viral upper respiratory illness 01/20/2025 [9] [10] [11] Past Surgical History: Procedure Laterality Date CERVICAL FUSION COLONOSCOPY TUBAL LIGATION [12] 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 Tobacco Use Smoking status: Former Current packs/day: 1.00 Average packs/day: 1 pack/day for 41.8 years (41.8 ttl pk-yrs) Types: Cigarettes Start date: 1983 Passive exposure: Current Smokeless tobacco: Never Vaping Use Vaping status: Never Used Substance Use Topics Alcohol use: Not Currently Drug use: Never documented in this encounter Plan of Treatment Upcoming Encounters Date Type Department Care Team (Late st Contact Info) Description 07/01/2025 2:00 PM EST Office Visit [facility] [address] [place] [address] Pita Hewitt MD [address] [address] 08/25/2025 1:15 PM EST Office Visit [facility] [address] [place] [address] Rita Amezcua MD [address] [place] [address] 02/16/2026 10:00 AM EDT Office Visit [facility] [address] [place] [address] Hernandez Arzate MD [address] [place] [address] documented as of this encounter Goals Goal Patient Goal Type Associated Problems Recent Progress Patient-Stated? Author Autogenerat ed Goal Care Plan Autogenerated Problem No Sean-Kaia Edwards documented as of this encounter Visit Diagnoses Not on filedocumented in this encounter Administered Medications Inactive Administered Medications - up to 3 most recent administrations Medication Order MAR Action Action Date Dose Rate Site dexmedetomidine (Precedex) 100 MCG/ML concentrated solution Intravenous, As needed, Starting on Sat05/17/25 at 0831, Until Sat05/17/25 at 0916, Routine, Anesthesia Intraprocedure Given 05/17/2025 9:04 AM EDT 4 mcg Given 05/17/2025 8:35 AM EDT 4 mcg Given 05/17/2025 8:31 AM EDT 4 mcg fentaNYL (Sublimaze) injection Intravenous, As needed, Starting on Sat05/17/25 at 0835, Until Sat05/17/25 at 0916, Routine, Anesthesia Intraprocedure Given 05/17/2025 9:04 AM EDT 25 mcg Given 05/17/2025 8:41 AM EDT 25 mcg Given 05/17/2025 8:38 AM EDT 25 mcg ketamine (Ketalar) injection Intravenous, As needed, Starting on Sat05/17/25 at 0835, Until Sat05/17/25 at 0916, Routine, Anesthesia Intraprocedure Given 05/17/2025 8:39 AM EDT 5 mg Given 05/17/2025 8:35 AM EDT 10 mg lactated Ringer's infusion 100 mL/hr, Intravenous, Once, 1 dose, On 05/17/25 at 0845, Routine New Bag 05/17/2025 8:31 AM EDT 50 mL/hr midazolam (Versed) injection Intravenous, As needed, Starting on Sat05/17/25 at 0829, Until Sat05/17/25 at 0916, Routine, Anesthesia Intraprocedure Given 05/17/2025 8:39 AM EDT 1 mg Given 05/17/2025 8:29 AM EDT 1 mg documented in this encounter Additional Health Concerns [...] documented as of this encounter Care Teams Face Hardener Relationship Specialty Start Date End Date Loy Cruz MD PCP - General 08/31/22 documented as of this encounter
--- OUTSIDE RECORDS SUMMARY | 2025-05-18 08:15 | XMS_ITS | Encounter Summary ---
Author Organization [facility] Address [address] [place] [address] Care Team Providers Care Plant Senior Manager Name Role Phone Loy Cruz MD Primary Care Provider Encounter Details Date Type Department Care Team (Late st Contact Info) Description 05/18/2025 9:15 AM EDT Office Visit [facility] [address] [place] [address] Pita Hewitt MD [address] [address] Status post left cataract extraction (Primary Dx); Plateau iris of both eyes; Ocular hypertension, bilateral Social [...] encounter Miscellaneous Notes * Patient Instructions - Pita Hewitt MD - 05/18/2025 9:15 AM EDT Location: [facility] - 4th floor, [facility] MEDICATIONS: Use the provided drops four times a day for the first week. Next Saturday, stop the hayes top. Use thepred acetate twice a day for one week then once a day for one week. Use the pressure drop once a day in both eyes. Wait 2-3 minutes between eye drops. The drops can be used in any order. If prescribed, use ointments last. Ointments are best taken at bedtime right before you turn off the light. Bring all of your eye drops to appointments. Resume any previous eye drops unless instructed to stop them. EYE PROTECTION: Wear normal glasses, sunglasses, or an eye shield at all times over the eye that had surgery. Sleepin the shield for the first week. Wear an eye shield over the eye with a piece of tape from the forehead to the cheek at night and any time you are sleeping. ACTIVITY: Do NOT bend over below waist - bend at knees. Do NOT lift more than 10 lbs, which is about the weight of a gallon milk. Do NOT strain or do anything that would make your face turn red. Open your mouth when coughing or sneezing. Take a stool softener for constipation. It is okay to shower, but avoid getting dirty water directly in your eye, and dab the eye dry, do not rub at it. No swimming, pools, hot tubs, or saunas for 2 weeks after surgery. You may return to normal activities only after being cleared by your surgeon. Only drive if you are confident your vision is back to normal, your eyes are comfortable and there is no light sensitivity. You may resume the same diet you were consuming prior to surgery. Please call for the following: Increasing pain, redness, or sensitivity to light Severe worsening of vision (it is normal for the vision to be inconsistent. It is often worse in the morning then gets better later in the day) Flashes of light (as if someone were taking pictures of you) Showers of new floaters (like a cloud of bugs in your vision) A curtain moving across your vision Pain above your eyebrow is NOT normal. Please call if you have worsening pain or feel like you needto throw up. Bruising and a small amount of bleeding are normal, including pink/bloody tears/nasal discharge. Itis normal to have a sensation of sand or grit in your eye. Vision can be slow to recover after a surgery, with improvement noted over several weeks. We often tell patients, the vision is the last thing to get better. If you experience any of these, there is a Eye Doctor water resource consultant 24 hours a day, 7 days a week, year-round. After hours and on weekends, call the 24-hour number: . You can also call [facility] Drilling Assistant and ask for the Eye Doctor water resource consultant : . During business hours, the Glaucoma Service phone is [phone]. Thank you for entrusting us with your eye care. * Progress Notes - Pita Hewitt MD - 05/18/2025 9:15 AM EDT POD #1 after CE IOL / ECPC OS. Using PF / antibx drop QID as directed. Has been taking Cosopt drops BID OU but not tolerating well. ARx OU on arrival She reports: she was nauseated from anesthesia and eye looks terrible and vision is blurred Recent glaucoma consult requested by Dr. Amezcua. At recent consult from Dr. Armendariz for wet AMD OS, there was concern for twig RVO OS and trace NVI OS. The IOPs were 34 T 24. Recent medrol dose pack.s. Previously the IOPs had been 18-19 OU at both [facility] and with Dr. Amezcua in Mar 2024. History of CAD, HTN, COPD and tobacco [...] Right Eye Surgery: none Left Eye Surgery: CE IOL / ECPC 05/18/25 SLT History: OD - no previous OS [...] from baseline with continued Cosopt use, but [facility] she would like to be off drops and is ready to move forward with surgery. The left eye vision is more symptomatic so will do that first unless new concerns arise with additional retinal testing. Rec CE / ECPC OS first - discussed at length, she consents Right eye dominant IOL calcs done today She can tolerate the drop for now, even though it burks, until the surgery is performed. 05/18/25: One day post-op cataract surgery / ECPC Left eye Uncomplicated. Good initial results. Excellent IOPs, anterior chamber looks significantly deeper Use pred acetate and antibiotic drops 4 times a day, 5 minutes apart, as directed Wear Wal[place] eye shield for sleep, limit activities, do not rub eye. Return one week for follow-up, contact us for any interim concerns. Nausea seems to be related to anesthesia, IOPs are excellent today. Age related nuclear cataracts both eye Symptomatic, especially with night driving, left worse than right Right eye dominant Use +22.5 [id number] IOL for LEFT eye, [employer] -0.66 Twig retinal vein occlusion OS Additional work-up with Dr. Amezcua pending, she has an appointment in [place] for FA OCT retina shows trace early cystic changes cc: Dr. Amezcua. Dr. Armendariz documented in this encounter Plan of Treatment Upcoming Encounters Date Type Department Care Team (Late st Contact Info) Description 07/01/2025 2:00 PM EST Office Visit [place] [facility] [address] [place] [address] Pita Hewitt MD [address] [place] [address] 08/25/2025 1:15 PM EST Office Visit [place] [facility] [address] [place] [address] Rita Amezcua MD [address] [place] [address] 02/16/2026 10:00 AM EDT Office Visit [facility] [place] [address] [place] [address] Hernandez Arzate MD [address] [place] [phone] documented as of this encounter Goals Goal Patient Goal Type Associated Problems Recent Progress Patient-Stated? 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
--- OUTSIDE RECORDS SUMMARY | 2025-05-26 13:53 | XMS_ITS | Encounter Summary ---
Author Organization [facility] Address [address] [place] [address] Care Team Providers Care Metal Fabricator Apprentice Name Role Phone Loy Cruz MD Primary Care Provider [phone] Reason for Visit * Reason Onset Date Comments HCN - Patient Message 05/10/2025 Encounter Details Date Type Department Care Team (Late st Contact Info) Description 05/10/2025 Telephone [facility] [address] [place] [address] Pita Hewitt MD [address] [address] HCN - Patient Message 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 Tobacco Use Types Packs/Day Years [...] encounter Miscellaneous Notes * Telephone Encounter - Mara Quinn - 05/10/2025 12:45 PM EDT Clinical Concern/Question Reason for Call: Pt would like to know if her PA for sx was approved or not. Best contact number: [phone] (home) Optimal time of day to reach caller: ANYTIME Additional comments/information from caller: None Note: Please do not reply to this message. Follow-up communication and further actions as a result of this message need to be communicated with the patient directly, if the patient is not active onMyChart. If the patient is active on MyChart, they will receive notification of the communication/outcome via MyChart. documented in this encounter Plan of Treatment Upcoming Encounters Date Type Department Care Team (Late st Contact Info) Description 07/01/2025 2:00 PM EST Office Visit [facility] [address] [place] [address] Pita Hewitt MD [address] [place] [address] 08/25/2025 1:15 PM EST Office Visit [place] [facility] [address] [place] [address] Rita Amezcua MD [address] [place] [address] 02/16/2026 10:00 AM EDT Office Visit [facility] [place] [address] [facility] [place] [address] Hernandez Arzate MD [address] [place] [phone] documented as of this encounter Goals Goal Patient Goal Type Associated Problems Recent Progress Patient-Stated? Author Autogenerat ed Goal Care Plan Autogenerated Problem No Kaia Vanessa documented as of this encounter Visit Diagnoses [...] documented as of this encounter Care Teams Metal Fabricator Apprentice Relationship Specialty Start Date End Date Loy Cruz MD PCP - General 08/31/22 documented as of this encounter
--- OUTSIDE RECORDS SUMMARY | 2025-05-26 13:53 | XMS_ITS | Encounter Summary ---
Author Organization [facility] Address [address] [place] [address] Care Team Providers Care Gas Burner Operator Name Role Phone Loy Cruz MD Primary Care Provider [phone] Reason for Visit * Reason Onset Date Comments HCN Clinical Concern/Question 05/04/2025 Encounter Details Date Type Department Care Team (Late st Contact Info) Description 05/04/2025 Telephone [facility] [address] [place] [address] Rita Amezcua MD [address] [place] [address] HCN Clinical Concern/Question 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 Tobacco Use Types Packs/Day Years [...] encounter Miscellaneous Notes * Telephone Encounter - Shona Alvarez - 05/04/2025 4:26 PM EDT Triage Note 05/04/2025 4:26 PM Provided clarification upon recent concerns. * Telephone Encounter - Vilma Kramer - 05/04/2025 4:06 PM EDT Status Update Call #1 1st call regarding the status of the initial request. Best contact number: [phone] (home) Optimal time of day to reach caller: ANYTIME Additional comments/information from caller: None Note: Please do not reply to this message. Follow-up communication and further actions as a result of this message need to be communicated with the patient directly, if the patient is not active onMyChart. If the patient is active on MyChart, they will receive notification of the communication/outcome via [employer]. * Telephone Encounter - Agustina Hare - 05/04/2025 9:21 AM EDT Patient called complaining that her eyes have been bothering her in the afternoon. She says they are fine when she wakes up but in the afternoon her eye sight is blurry. She is also on drops for highpressure and she is having cataract surgery on the of this month. She's wanting to know if sheshould be seen soon? Or wait til her surgery. documented in this encounter Plan of Treatment Upcoming Encounters Date Type Department Care Team (Late st Contact Info) Description 07/01/2025 2:00 PM EST Office Visit [facility] [address] [place] [address] Pita Hewitt MD [address] [address] 08/25/2025 1:15 PM EST Office Visit [facility] [address] [place] [address] Rita Amezcua MD [address] [place] [address] 02/16/2026 10:00 AM EDT Office Visit [facility] [place] [address] [place] [address] Hernandez Arzate MD [address] [place] [address] documented as of this encounter [...] documented as of this encounter Care Teams Gas Burner Operator Relationship Specialty Start Date End Date Loy Cruz MD PCP - General 08/31/22 documented as of this encounter
--- OUTSIDE RECORDS SUMMARY | 2025-05-26 13:53 | XMS_ITS | Clinical Summary ---
Author Organization [facility] Address [address] [place] [address] Care Team Providers Care Laser Technician Name Role Phone Loy Cruz MD Primary Care Provider [phone] Allergies Active Allergy Reactions Criticality Noted Date [...] wheezing Active cholecalciferol (Vitamin D-3) 50 MCG (1999 UT) tablet Take 1 tablet by mouth 1 time each day. Active coenzyme Q-10 10 MG capsule coenzyme Q10 200mg qd Active cyclobenzaprine (Flexeril) 10 MG tablet TAKE ONE TABLET BY MOUTH EVERY DAY AT BEDTIME MAY CAUSE DROWSINESS Active lisinopril 10 MG tablet Take 1 tablet by mouth daily. 5 Active budesonide EC (Entocort EC) 3 MG 24 hr capsule Take 2 capsules by mouth daily. 5 Active oxyCODONE-aceta minophen (Percocet) 5-325 MG tablet 5 Active rosuvastatin (Crestor) 20 MG tablet Take 1 tablet by mouth daily. 5 Active Anoro Ellipta 62.5-25 MCG/ACT aerosol powder aerosol powder Inhale 1 Inhalation. Active dorzolamide-sri olol (Cosopt) 2-0.5 % ophthalmic solution Administer 1 drop into both eyes 2 times a day. 10 mL 5 Active Additional Information Patient taking differently:1 drop Both EyesDaily, Reported on 05/17/2025 aspirin 81 MG EC tablet daily. Active ipratropium-alb uterol (Duo-Neb) 0.5-2.5 mg/3 mL nebulizer solution INHALE THE CONTENTS OF 1 VIAL VIA NEBULIZER EVERY 4 TO 6 HOURS NEEDED FOR SHORTNESS OF BREATH OR wheezing Active ibuprofen 200 MG tablet Take 2 tablets by mouth every 6 hours as needed for mild pain. Active Active Problems Problem Noted Date Diagnosed Date Status post left cataract extraction 05/18/2025 Plateau iris of both eyes 04/15/2025 Age-related nuclear cataract of both eyes 2024 Partial retinal vein occlusion, left 03/14/2025 Ocular hypertension, bilateral 03/03/2025 Abdominal pain 01/20/2025 Abnormal abdominal x-ray 01/20/2025 Acute viral syndrome 01/20/2025 Anxiety 01/20/2025 Chest pain, pleuritic 01/20/2025 Dyspnea 01/20/2025 Fatigue 01/20/2025 Itching 01/20/2025 Leukocytosis 01/20/2025 Low back pain 01/20/2025 Lumbar radiculopathy 01/20/2025 Mass of upper lobe of right lung 01/20/2025 Muscle spasm 01/20/2025 Otitis media 01/20/2025 Skin problem 01/20/2025 Strep sore throat 01/20/2025 Syncope and collapse 01/20/2025 Vaccine counseling 01/20/2025 Polyp of cecum 05/08/2023 Overview (01/20/2025): less than 5mm; path states focal active colitis - Aug 2016 Anemia 11/30/2022 Overview (01/20/2025): 1history of Arm numbness left 11/30/2022 Spinal stenosis of cervical region 11/30/2022 Microscopic colitis 11/30/2022 Hard of hearing [...] Collagenous colitis 10/16/2014 Vitamin D deficiency 10/16/2014 Resolved Problems Problem Noted Date Diagnosed Date Resolved Date Bronchitis 01/20/2025 04/25/2025 Colitis 01/20/2025 04/25/2025 Exposure to COVID-19 virus 01/20/2025 1 Otitis media of right ear 01/20/2025 Sinusitis 01/20/2025 04/25/2025 Viral upper respiratory illness 01/20/2025 04/25/2025 Chronic diarrhea 11/30/2022 04/25/2025 Encounters Date Type Department Care Team Description 05/18/2025 9:15 AM EDT Office Visit [facility] [address] [place] [phone] Pita Hewitt MD Status post left cataract extraction (Primary Dx); Plateau iris of both eyes; Ocular hypertension, bilateral 05/18/2025 Travel 05/17/2025 8:31 AM EDT Anesthesia Event [facility] [address] [place] [address] Latonia Lucas MD 05/17/2025 8:20 AM EDT - 05/17/2025 9:10 AM EDT Surgery [facility] [address] [place] [phone] Pita Hewitt MD PHACOEMULSIFICATION, CATARACT, WITH IOL INSERTION AND ENDOSCOPIC CYCLOPHOTOCOAGULATION [77690 (CPT ) +1 more] 05/17/2025 6:35 AM EDT - 05/17/2025 10:30 AM EDT Hospital Encounter [facility] [address] [place] [phone] Pita Hewitt MD Age-related nuclear cataract of both eyes (Primary Dx); Ocular hypertension, bilateral; Plateau iris of both eyes Discharge Disposition: Home or Self Care 05/17/2025 Travel 05/10/2025 Telephone [facility] [address] [place] [address] Pita Hewitt MD HCN - Patient Message 05/04/2025 Telephone [facility] [address] [place] [address] Rita Amezcua MD HCN Clinical Concern/Question 04/22/2025 2:00 PM EDT Office Visit [facility] [address] [place] [address] Rita Amezcua MD Partial retinal vein occlusion, left (Primary Dx); Exudative age-related macular degeneration, left eye, with active choroidal neovascularization (CMS/HCC); Ocular hypertension, bilateral; Age-related nuclear cataract of both eyes; 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 04/22/2025 8:15 AM EDT Ancillary Procedure [facility] [address] [place] [address] 04/22/2025 8:15 AM EDT Ancillary Procedure [facility] [address] [place] [address] 04/22/2025 Travel 04/16/2025 9:55 PM EDT Ancillary Procedure [facility] [address] [place] [address] 04/15/2025 10:45 AM EDT Office Visit [place] [facility] [address] [place] [address] Pita Hewitt MD Ocular hypertension, bilateral (Primary Dx); Age-related nuclear cataract of both eyes; Partial retinal vein occlusion, left; Plateau iris of both eyes 04/15/2025 Travel 03/31/2025 1:45 PM EDT Office Visit [place] [facility] [address] [place] [address] Rita Amezcua MD Partial retinal vein occlusion, left (Primary Dx); Age-related nuclear cataract of both eyes; Ocular hypertension, bilateral 03/31/2025 1:20 PM EDT Ancillary Procedure [place] [facility] [address] [place] [address] 03/31/2025 Travel 03/14/2025 10:10 AM EDT Ancillary Procedure [place] [facility] [address] [place] [address] 03/04/2025 9:15 AM EDT Office Visit [place] [facility] [address] [place] [address] Pita Hewitt MD Ocular hypertension, bilateral (Primary Dx); Age-related nuclear cataract of both eyes; Partial retinal vein occlusion, left 03/04/2025 Travel 03/03/2025 3:30 PM EDT Office Visit [place] [facility] [address] [place] [address] Rita Amezcua MD Retinal hemorrhage of both eyes (Primary Dx); Early dry stage nonexudative age-related macular degeneration of both eyes; Bilateral ocular hypertension; Age-related nuclear cataract of both eyes 03/03/2025 1:10 PM EDT Ancillary Procedure [place] [facility] [address] [place] [address] 03/03/2025 Travel from Last 3 Months Immunizations Immunization Administration Dates Next Due Influenza Vaccine, Quadrivalent, Adjuvanted 04/22 Influenza, injectable, MDCK, preservative free, quadrivalent 05/09/2021 Influenza, injectable, quadrivalent 04/07/2020 Influenza, trivalent, adjuvanted 05/25/2024 Pneumococcal 20-suzi Conj Vaccine 05/25/2024 Tdap 01/12/2021 Family History 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 Relation Name Comments Heart failure Father bypass Father Breast cancer Mother Breast cancer Sister gall bladder cancer Sister Malig Hyperthermia Neg Hx Relation Name Status Comments Father Mother Sister [...] Mass Index 17.78 05/17/2025 7:13 AM EDT Plan of Treatment Upcoming Encounters Date Type Department Care Team (Late st Contact Info) Description 07/01/2025 2:00 PM EST Office Visit [place] [facility] [address] [place] [address] Pita Hewitt MD [address] [place] [address] 08/25/2025 1:15 PM EST Office Visit [place] [facility] [address] [place] [address] Rita Amezcua MD [address] [place] [address] 02/16/2026 10:00 AM EDT Office Visit [facility] [place] [address] [place] [address] Hernandez Arzate MD [address] [place] [address] Health Maintenance Due Date Last Done Comments [facility]-Hepatitis C Screening 1955 [facility]-Medicare Annual Wellness (AWV) 1955 [facility]-/Child/Adol SDOH Screenings 1955 [facility]- SDOH Screenings 1974 [facility]-Adult SDOH Screenings 1974 CT Colonography 2001 Colonoscopy 2001 FIT-DNA 2001 FIT 2001 FOBT 2001 Sigmoidoscopy 2001 [facility]-Colorectal Cancer Screening 2001 [facility]-Zoster Vaccines (1 of 2) 2006 [facility]-RSV Vaccine: 60+ Years or (1 - Risk 60-74 years 1-dose series) 2016 [facility]-Bone Density Scan 08/05/2020 08/05/2019 AMF-LAYGA-50 Vaccine ( season) 2025 05/31/2021, 10/26/2020, 09/28/2020 [facility]-Influenza Vaccine (#1) 03/22/202505/25, 05/17/2023, 05/09/2021, Additional history exists [facility]-Depression Screening 02/10/2026 02/10/2025, 01/20 [facility]-Breast Cancer Screening 11/10/202610/21, 09/26/2023, 08/31/2022, Additional history exists [facility]-DTaP,Tdap,and Td Vaccines (2 - Td or Tdap) 01/12/2031 01/12/2021 [facility]-Pneumococcal Vaccine: 50+ Years Completed 05/25/2024 HPV [...] on patient's age to complete this topic Goals Goal Patient Goal Type Associated Problems Recent Progress Patient-Stated? Author Autogenerat ed Goal Care Plan Autogenerated Problem No [employer] Implanted Type Area Orthodontic Assistant Device Identifier Shelf Expiration Date Model / Serial / Lot Lens Monofocal Clear [id number] 22.5 - [id number] Implanted:Qty: 1 on 05/17/2025 by Pita Hewitt MD at [facility] Left: Eye [id number] 10/19/2028 [id number] / [id number] / [id number] Procedures Procedure Name Priority Date/Time Associated Diagnosis Comments DC XCAPSL CTRC RMVL INSJ IO LENS PROSTH CPLX W/ECP 05/17/2025 8:26 AM EDT Ocular hypertension, bilateral Age-related nuclear cataract of both eyes Plateau iris of both eyes DC XCAPSL CTRC RMVL INSJ IO LENS PROSTH W/ECP 05/17/2025 8:26 AM EDT Ocular hypertension, bilateral Age-related nuclear cataract of both eyes Plateau iris of both eyes OCT, RETINA - OU - BOTH EYES Routine 04/22/2025 3:53 PM EDT Exudative age-related macular degeneration, left eye, with active choroidal neovascularization (CMS/HCC) FLUORESCEIN ANGIOGRAPHY - OU - BOTH EYES Routine 04/22/2025 3:09 PM EDT Exudative age-related macular degeneration, left eye, with active choroidal neovascularization (CMS/HCC) ALFONSO VISUAL FIELD - OU - BOTH EYES Routine 04/16/2025 9:54 PM EDT Ocular hypertension, bilateral ULTRASOUND BIOMETRY W IOL ARABELLA - OU - BOTH EYES Routine 04/16/2025 9:50 PM EDT Age-related nuclear cataract of both eyes OCT, RETINA - OU - BOTH EYES Routine 03/31/2025 1:15 PM EDT Partial retinal vein occlusion, left OCT, OPTIC NERVE - OU - BOTH EYES Routine 03/14/2025 10:11 AM EDT Ocular hypertension, bilateral OCT, RETINA - OU - BOTH EYES Routine 03/03/2025 5:02 PM EDT Bilateral ocular hypertension MAMMOGRAPHY BREAST SCREENING TOMOSYNTHESIS BILATERAL Routine 11/10/2024 3:03 PM EDT Encounter for screening mammogram for malignant neoplasm of breast from Last 3 Months or Most Recently Relevant to Health Maintenance Results * OCT, Retina - OU - [...] an area of pooling Rita Amezcua MD OPH PHOTOGRAPHY Teresa l Result * Alfonso Visual Field - OU - [...] Possible lenticular effect OU. Pita Hewitt MD [facility] VISUAL FIELD Final Res ult * Ultrasound Biometry w IOL Arabella - OU - Both Eyes (04/16/2025 9:50 PM EDT) Anatomical Region Laterality Modality Head Other Narrative 04/20/2025 4:26 PM EDT Right Eye Lens style: CC60WF. Lens power: +21.5. Target refraction: - 0.38. Left Eye Lens style: CC60WF. Lens power: +22.5. Target refraction: - 0.66. Notes Lopez and Francisco formulas used. Cylinder: OD +0.6 @ 39 OS +1.1 @ 65 Pita Hewitt MD OPH ULTRASOUND Final Resul t * OCT, Retina - OU - Both Eyes (03/31/2025 1:15 PM EDT) Anatomical Region Laterality Modality Head Optical Coherenc e Tomography Narrative 04/05/2025 12:25 PM EDT Right eye (OD): ?trace early cystic changes Left eye (OS); trace cysts improved from last visit with Dr. Armendariz Haley Saxena MD OPHTH TOMOGRAPHY Final R esult * OCT, Optic Nerve - OU - Both Eyes (03/14/2025 10:11 AM EDT) Anatomical Region Laterality Modality Head Optical Coherenc e Tomography Narrative 03/14/2025 10:11 AM EDT Right Eye Images reviewed. To assess optic nerve function and for use in future follow-up. Left Eye Images reviewed. To assess optic nerve function and for use in future follow-up. Notes Feb 2025 OD: full and robust, avg 84 um. OS: focal supr thinning, otherwise full and robust, avg 76 um. Image quality good OU. Pita Hewitt MD OPHTH TOMOGRAPHY Final Resul t * OCT, Retina - OU - Both Eyes (03/03/2025 5:02 PM EDT) Anatomical Region Laterality Modality Head Optical Coherenc e Tomography Narrative 03/03/2025 5:02 PM EDT Right eye (OD): ?trace early cystic changes Left eye (OS); trace cysts improved from last visit with Dr. Armendariz Haley Saxena MD OPHTH TOMOGRAPHY Final R esult * Mammography Breast Screening Tomosynthesis Bilateral (11/10/2024 [...] 07/24/2021 Mammography Breast Screening Tomosynthesis Bilateral at [facility] 08/31/2022 Mammography Breast Screening Tomosynthesis Bilateral at [facility] 09/26/2023 Mammography Breast Screening Tomosynthesis Bilateral at [facility] BREAST COMPOSITION: The breasts are heterogeneously dense, which may obscure small masses. FINDINGS: There are no suspicious masses, calcifications, or areas of architectural distortion. Loy Cruz MD IMG BI PROCEDURES Final Result from Last 3 Months or Most Recently Relevant to Health Maintenance Additional Health Concerns Active Problems Noted Date Diagnosed Date Autogenerated Problem 05/18/2025 Insurance [facility] MEDICARE Care Teams Laser Technician Relationship Specialty Start Date End Date Loy Cruz MD PCP - General 08/31/22
--- OUTSIDE RECORDS SUMMARY | 2025-05-26 13:53 | XMS_ITS | Clinical Summary ---
Author Organization [employer] ([place], [place], [place], [place], [place]) Address [address] [place] [address] Care Team Providers Care Circuit [address] Magistrate Name Role Phone Loy Cruz MD Primary Care Provider [phone] Allergies Active Allergy Reactions Criticality Noted Date [...] Date Toño rded Speak language other than Turkish at home Not on file 08/04/2023 Want [...] 08/05/2019, 08/05/2019 Medicare Initial AWV [id number] 11/20/2022 Falls Risk Screening 07/22/2024 Tobacco Cessation Counseling and Screening (12+) 11/05/2024 11/06/2023 COVID-19 VACCINE ( - 2024-2 6 season) 2025 05/31/2021, 10/26/2020, 09/28/2020 Influenza Vaccine (#1) 2025 05/09/2021, 2019 Breast Cancer Screening 09/25/2025 09/26/19, 09/26/2023, 08/31/2022, Additional history exists DTAP/TDAP/TD VACCINES (2 - T d or Tdap) 01/12/2031 01/12/2021 Colonoscopy 10/30/2032 10/30/2022, 02/0 09/2016, 08/24/2016 Colorectal Cancer Screening 10/30/2032 Pap Smear Discontinued 08/07/2022, 07/27/2019 Procedures Procedure Name Priority Date/Time Associated Diagnosis Comments COLONOSCOPY Routine 10/30/2022 11:34 AM EDT Collagenous colitis HM PAP SMEAR Routine 08/07/2022 HM DEXA SCAN Routine 08/05/2019 from Last 3 Months or Most Recently Relevant to Health Maintenance Results * HM PAP SMEAR (08/07/2022) us Antoinette Quach MD HEALTH MAINTENANCE Final Result * HM DEXA SCAN (08/05/2019) Anatomical Region Laterality Modality Other us Antoinette Quach MD HEALTH MAINTENANCE Final Result from Last 3 Months or Most Recently Relevant to Health Maintenance Insurance [facility] [employer] PPO MAP Care Teams Circuit Court Magistrate Relationship Specialty Start Date End Date Loy Cruz MD [address] [place] [address] PCP - General Family Medicine 04/18/23
--- OUTSIDE RECORDS SUMMARY | 2025-05-26 13:53 | XMS_ITS | Data Portability ---
Author Organization [facility] [place] KAY Unger [place] CLOSED Address [address] [place] [address] Care Team Providers Care Hand Tool Lapper Name Role Phone VINITA HARDIN Referring Provider [...] reflexes. Will include lumbar MRI as well. [email or web address] Not available 10/01/2022 18:40:11 11/26/2022 11/26/2022 Mrs. [...] over telehealth. I will arrange for NCS/EMG. [email or web address] Not available 08/18/2023 16:51:09 10/28/2024 10/28/2024 1. Chronic low back pain - this is generally stablke 2. Mild chronic left lower lumbar radiculopathy 3. Neck pain at times; h/o ACDF Mostly she seems stable. She agrees. If back pain worsens/changes or any new symptoms arise, she knows to call. [email or web address] Not available 10/28/2024 18:01:48 Plan of Treatment Reminders Order Date Submit Date Provider Last Modified By Organization Details Last Modified Time Details Appointments None recorded. Lab None recorded. Referral None recorded. Procedures nerve conduction study/EMG, lower extremity (PROC) 2023 024 [id number] Alex Antony MD, [address] [place], [address], 4 07:48:35 Surgeries None recorded. Imaging MRI, lumbar spine, w/o contrast 2022 023 [facility], [address] [place], [address], 3 11:52:37 MRI, cervical spine, w/o contrast 2022 023 [email or web address] 3 [facility], [address] [place], [address], 3 08:09:55 Medication Orders cyclobenzap rine 10 mg tablet 2024 025 [facility], [address] [facility] [address] [address], [place], [place], [id number], 5 12:32:40 Patient TargetsNo targets recorded. Patient InstructionsNo instructions recorded. Reason for Referral None Reported. Results Created Date Observation Date Name Description Value Unit Range Abnormal Flag Note LastModifiedBy Organization Detail LastModifiedTime 10/20/19 23 10/19/2022 MRI, lumba r spine , w/o contr ast [facility] [address] [place] [address] Blas garcia Name: BRISA garcia : 89 [...] Bhavin suárez MD on 023 11:47 AM [facility] [address] [place], [address], 11/04/2022 13:37:55 08/25/19 24 08/23/2023 nerve condu ction study /EMG, lower extre mity (PROC ) No observ ation record ed. [email or web address] Alex Antony MD [address] [place], [address], 08/25/2023 13:02:25 Result Notes Documentation Provider Name and Address Organization Details Recorded Time Mri, Lumbar Spine, W/o Contrast : [facility] [address] [place] [address] Patient Name: BRISA MCLEAN Patient : 1955 [...] Interpreted By: Wes Bonner MD ANTONY MD [address] [place] [address], [address], [facility] 10/22/2022 12:30:26 Problems Name Problem SNOMED Code Status Onset Date Resolution Date Notes Provider Name and Address Organization Details Recorded Time Headache 69885850 Active 2015 From Automated Load;Provi steph: Madie Hopper;Stat us: Active Not Available [facility] 6 09:40:34 Neck pain 51224029 Active 2015 From Automated Load;Provi steph: Madie Hopper;Stat us: Active Not Available [facility] 6 09:40:34 Cervical disc disorder 046891924 Active 2015 From Automated Load;Provi steph: Madie Hopper;Stat us: Active Not Available [facility] 6 09:40:34 Pain in right lower limb 991287260 Active 2015 From Automated Load;Provi steph: Madie Hopper;Stat us: Active Not Available [facility] 7 06:51:54 Paresthes ia 09453972 Active 2015 Monica Taylor (Nicky) [facility] 6 10:52:55 Problem Notes None recorded. Procedures Surgical History Date Name Laterality Status Provider Name and Address Organization Details Recorded Time 08/23/19 24 Electromyography (EMG) with Nerve Conduction Study (NCV) completed Monica Taylor (Nicky) [facility] 08/23/2023 14:37:25 12/09/19 22 tooth extraction completed Anna Sparks [facility] 12/14/2021 09:20:42 07/17/20 16 Electromyography (EMG) with Nerve Conduction Study (NCV) completed Monica Taylor (Nicky) [facility] 07/17/2016 09:45:02 06/29/20 14 Neck Surgery completed Shona Reynolds [facility] 08/27/2016 09:06:41 Imaging Results None recorded. Procedure Notes None recorded. Medical Equipment None Reported. Allergies Allergen ID Allergen Name Allergen Category Reaction Reaction Severity Criticality Documentation Date Start Date Code Code System Note Provider Name and Address Organization Details Recorded Time 341528 Robaxin medicatio n Not available Not available Not available 06/14/2016201395 5 RxNorm Comme nt: Creat ed By: Evelyn palacios;Cr eated Date: 014 11:13 :17 AM; Not Available [facility] 6 13:39:43 399551 amoxicill in medicatio n Not available Not available Not available 09/12/2017 723 RxNorm Arlen duran [facility] 8 08:45:10 351071 Product containin g penicilli n (product) medicatio n Not available Not available Not available 12/14/2021 49803 8001 SNOMED Anna Sparks [facility] 2 09:17:41 Medications Name Sig Start [...] as needed by oral route. 2022 active [facility]: [id number] 0-61 Not Available Not Available Not [...] Updated DateTime 08/02/2023 152.4 cm 16.8 kg/m2 [address] [facility] 08/02/2023 14:56:34 Date Recorded Body weight Oxygen saturation Oxygen saturation in Arterial blood by Pulse oximetry Heart rate Systolic And Diastolic Provider Name and Address Organization Details Last Updated DateTime 3 33516.6 1 g 97 % 97 % 92 /min 122/72 mm[Hg] Monica Hutson [facility] 3 14:19:47 Date Recorded Body weight Heart rate Oxygen saturation Oxygen saturation in Arterial blood by Pulse oximetry Systolic And Diastolic Provider Name and Address Organization Details Last Updated DateTime 5 60641.5 g 76 /min 96 % 96 % 122/76 mm[Hg] [facility] 5 13:55:40 Date Recorded Body height Body mass index (BMI) Body weight Systolic And Diastolic Provider Name and Address Organization Details Last Updated DateTime 11/26/2022 152.4 cm 17 kg/m2 26933.54 g 126/72 mm[Hg] Dianna Cruzholz [facility] 11/26/2022 09:59:39 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 Question Answer Notes LastModified by Organizat ion Details LastModified Time Tobacco Smoking Status Current Every Day [email or web address] 08/27/2016 09:04:27 Live Alone Or With Others? Alone [email or web address] Information not available 03/07/2017 Marital Status Informatio n not available 03/07/2017 What Was The Date Of Your Most Recent Tobacco Screening? 10/01/2022 [email or web address] Information not available 10/01/2022 How Much Tobacco Do You Smoke? 1 PPD Information not available 08/27/2016 Has Tobacco Cessation Counseling Been Provided? No [email or web address] Information not available 12/14/2021 How Many Years Have You Smoked Tobacco? 20 Information not available 08/27/2016 Sex: Unknown Functional Status Question Answer Note LastModified by Organizat ion Details LastModified Time What is your level of alcohol consumption? None [email or web address] Information not available 12/14/2021 What is your [...] Diagnosis SNOMED-CT Code Diagnosis ICD10 Code Diagnosis IMO Codes Diagnosis Note [id number] MADIE HOPPER MD NEUROLOGY [facility] [address] [place] [address] 07/17/2016 08:36:36 07/17/2016 10:23:18 Paresthesia 42872259 R20.2 Muscle weakness 73662023 M62.81 Muscle pain 68903770 M79 .1 Skin sensa tion disturbance 42809295 R20.9 [id number] JENNIFER COOPER MD NEUROSURG [facility] [address] [place] [address] 08/27/2016 08:40:38 08/27/2016 14:00:43 Cervical radiculopathy 88849401 M54.12 [id number] JENNIFER COOPER MD NEUROSURG [facility] [address] [place] [address] 10/08/2016 10:02:12 10/08/2016 13:45:17 Cervical radiculopathy 68940517 M54.12 15 minutes spent reviewing images, discussing the diagnosis and coordinati ng care. [id number] MADIE HOPPER MD NEUROLOGY [facility] [address] [facility] [place] [address] 03/07/2017 08:17:12 03/07/2017 09:16:01 Cervicogenic headache 249317573 G44.89 Mrs. Mclean is a 61-year-ol d [...] than 50% time in counseling Muscle pain 31007298 M79 .1 -as above. Paresthesia 39849338 R20 .2 LLE, possibly from cervical cord compressio n; no low back pain, reflexes intact and brisk Pain in le ft lower limb 124719491 M79.605 pain and weakness LLE - as above [id number] MADIE HOPPER MD NEUROLOGY [facility] [address] [facility] [place] [address] 09/12/2017 08:33:47 09/12/2017 10:33:24 Paresthesia 45704438 R20.2 LLE, most likely from cervical cord compressio n; no low back pain, reflexes intact and brisk, weakness in upper motor neuron pattern Cervicogenic headache 27 2644565 G44.89 Mrs. Mclean is a 61-year-ol d [...] inue cyclobenza gloria 10 mg qhs-Contin ue [id number] me magnesium daily- She is interested in CBD oil. This may be helpful. I've provided literature .- if pain signficant worsens, she is to get back in with Dr. Cooper FU 12 month or sooner PRN Muscle pain 48145504 M79 .1 -as above. 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 Cervical myelopathy 2025 62232 G95.9 she has exam finding and symptoms suggestive of myelopathy - following with Dr. 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 Recent ER visit for BLE giving out, severe pain both legs and L arm. Suspect from cervical stenosis. - scheduled wtih Dr. Cooper Headache 72851071 R51 cervicogen ic -- f/u with Dr. Cooper Cervicogenic headache 27 5316958 G44.89 Mrs. Mclean is a 62-year-ol d [...] d she discuss SL CBD oil with [facility] FU 12 month or sooner PRN Muscle pain 31427963 M79 .12 -as above. Paresthesia 98525531 R20 .2 LLE, most likely from cervical cord compressio n; no low back pain, reflexes intact and brisk, weakness in upper motor neuron pattern Pain in le ft lower limb 780607267 M79.605 pain and weakness LLE - as above LUE/LLE paresthesi as, pain LLE Cervical myelopathy 2025 37814 G95.9 she has exam finding and symptoms suggestive of myelopathy - following with Dr. Cooper on as needed basis 40 min appt with greater than 50% in counseling regarding probalbe cervical source of pain, weakness, importance of surgery if determined by Dr. Cooper Tobacco user 573739225 Z 72.0 She is still smoking 1PPD. Counseled that smoking contribute s to cervical spondylosi s, among so many other health risks including increased risk for heart attack, stroke and cancer. [id number] KENNETH OSBORN PA-C NEUROSURG [facility] [address] [place] [address] 09/22/2018 13:19:22 09/22/2018 15:52:51 Cervical radiculopathy 07885038 M54.12 Lumbar radiculopathy 128 873579 M54.16 [id number] MADIE HOPPER MD NEUROLOGY [facility] [address] [place] [address] 09/10/2019 11:02:54 09/10/2019 13:18:32 Headache 22840239 R51 cervicogen ic too afraid of needles to undergo nerve blocks and trigger point injections Cervical d isc disorder 276544303 M50.90 multi level s/p fusion C3-4 and C4-5 fusion, 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 Cervicogenic headache 27 0234268 G44.89 Mrs. Mclean is a 63-year-ol d [...] exercises. I showed her the products on [employer]. She is also now using CBD oil and it is helping. - Continue peppermint oil alternatin g with Biofreeze- Again counseled on concerns of ibuprofen, commended for cutting back; she is to avoid and limit to no more than 10 analgesics per month-Cont inue cyclobenza gloria 10 mg qhs-Contin ue CoQ10 and resume magnesium qhs- [facility] FU 12 month or sooner PRN Muscle pain 37074644 M79 .12 -as above. consider trigger point injections Cervical myelopathy 2025 22475 G95.9 she has exam finding and symptoms suggestive of myelopathy - following with Dr. Cooper on as needed basis 30 min appt with greater than 50% in counseling regarding probable cervical source of pain, weakness Tobacco user 428369990 Z 72.0 She is still smoking 1PPD. Counseled that smoking contribute s to cervical spondylosi s, among so many other health risks including increased risk for heart attack, stroke and cancer. 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 - juan richard -- as above for headaches - stop smoking - continue vitamins, vit D, Ca and start a MVI Cervicogenic headache 27 7785585 G44.89 Mrs. Mclean is a 64-year-ol d [...] 12 min 2 min Rx Muscle pain 90312993 M79 .12 -as above. consider trigger point injections Cervical myelopathy 2025 18931 G95.9 she has exam finding and symptoms suggestive of myelopathy - following with Dr. Cooper on as needed basis Tobacco user 751144979 Z 72.0 She is still smoking 1PPD. Again counseled that smoking contribute s to cervical spondylosi s, among so many other health risks including increased risk for heart attack, stroke and cancer. [id number] ALEX ANTONY MD NEUROLOGY [facility] [address] [place] [address] 12/14/2021 08:18:29 12/14/2021 11:06:39 Migraine 00843343 G43.909 Neck pain 75422897 M54.2 [id number] ALEX ANTONY MD NEUROLOGY [facility] [address] [place] [address] 10/01/2022 14:03:41 10/01/2022 14:53:27 Spinal stenosis in cervical region 02368551 M48.02 Spinal cord disease 4852 2002 G95.9 Lumbar radiculopathy 128 144729 M54.16 [id number] JENNIFER COOPER MD [facility]OSURG [facility] [address] [place] [address] 11/26/2022 09:39:10 11/27/2022 04:45:38 Lumbar radiculopathy 274051064 M54.16 [id number] ALEX ANTONY MD NEUROLOGY [facility] [address] [place] [address] 08/02/2023 14:54:56 08/19/2023 04:24:09 Pain in left lower limb 313893815 M79.605 [id number] ALEX ANTONY MD NEUROLOGY [facility] [address] [place] [address] 08/23/2023 12:43:25 08/24/2023 04:25:39 Lumbar radiculopathy 847635797 M54.16 Paresthesi a of lower extremity 022808337 R20.2 [id number] ALEX ANTONY MD NEUROLOGY [facility] [address] [place] [address] 10/28/2024 13:27:09 10/29/2024 04:12:25 Neck pain 74543675 M54.2 Lumbar radiculopathy 128 916226 M54.16 Health Concerns Section Related Observation LastModified by Organization Detai ls LastModified Time None Recorded Concern Status LastModified by Organization Details LastModified Time None Recorded Advance Directives Directive None Recorded Payers Insurance Date Sequence Insurance Name Policy Number Policy Evangelista Covered Member ID Evangelista Member ID Guarantor Name 06/15/2020 1 [place] [id number] Brisa R Vinay [id number] Brisa R Vinay 10/25/2024 1 [place]MEDICARE REPLACEMENT REGIONAL PPO) [id number] Brisa R Vinay [id number] Brisa R Vinay 12/14/2021 1 [place] [id number] Brisa R Vinay [id number] Brisa R Vinay Notes Date Note [...] 2019 but not done. ALEX ANTONY MD [address] [place] [address], [phone], [facility] 10/01/2022 18:40:30 11/26/2022 text/html Mrs. [...] MRI of the lumbar spine performed at [facility] on October 19, 2022. JENNIFER COOPER MD [address] [place] [address], [phone], [facility] 11/26/2022 10:21:03 08/02/2023 text/html Visit today is being conducted via telehealth using both audio/video. The patient confirms that he/she is physically located in [place] at the time of this visit. Patient [...] and the latter pursued. ALEX ANTONY MD [address] [place] [address] [place], [address], [facility] 08/18/2023 16:51:26 10/28/2024 text/html She [...] no bone densitywas on reclast. MD Alexandria NESBITT, [place], [address], [facility] 10/28/2024 18:01:59 OBGyn Episode No OBEpisode recorded.
--- OUTSIDE RECORDS SUMMARY | 2025-05-26 13:53 | XMS_ITS | Encounter Summary ---
Author Organization Healthcare Address [address] [place] [address] Care Team Providers Care Camp Assistant Name Role Phone Loy Cruz MD Primary Care Provider [phone] Encounter Details Date Type Department Care Team (Latest Contact Info) Description 05/17/2025 Travel 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 Tobacco Use Types Packs/Day [...] Author No Risk Indicated 05/17/2025 8:30 AM EDRosa Sanchez RN * Question Answer Date of Assessment Author 1. Wish to be (Past 1 Month) No 025 8:30 AM Rosa Rangel, DIMA 2. Non-Specific Active Suici enid Thoughts (Past 1 Month) No 05/17/2025 8:30 AM oRsa Rangel , DIMA 6. Suicidal Behavior (Lifetime) No 8:30 AM Rosa Rangel, DIMA documented as of this encounter Plan of Treatment Upcoming Encounters Date Type Department Care Team (Late st Contact Info) Description 07/01/2025 2:00 PM EST Office Visit [facility] [address] [place] [address] Pita Hewitt MD [address] [place] [address] 08/25/2025 1:15 PM EST Office Visit [facility] [address] [place] [address] Rita Amezcua MD [address] [place] [address] 02/16/2026 10:00 AM EDT Office Visit [facility] [place] [address] [place] [address] Hernandez Arzate MD [address] [place] [address] documented as of this encounter [...] documented as of this encounter Care Teams Camp Assistant Relationship Specialty Start Date End Date Loy Cruz MD PCP - General 08/31/22 documented as of this encounter
--- OUTSIDE RECORDS SUMMARY | 2025-05-26 13:53 | XMS_ITS | Encounter Summary ---
Author Organization Healthcare Address [address] [place] [address] Care Team Providers Care Single Needle Tufting Machine Operator Name Role Phone Loy Cruz MD Primary Care Provider [phone] Encounter Details Date Type Department Care Team (Latest Contact Info) Description 04/22/2025 Travel 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 Tobacco Use Types Packs/Day [...] Description 07/01/2025 2:00 PM EST Office Visit [facility] [address] [place] [address] Pita Hewitt MD [address] [place] [address] 08/25/2025 1:15 PM EST Office Visit [facility] [address] [place] [address] Rita Amezcua MD [address] [place] [address] 02/16/2026 10:00 AM EDT Office Visit [facility] [place] [address] [place] [address] Hernandez Arzate MD [address] [place] [address] documented as of this encounter [...] documented as of this encounter Care Teams Single Needle Tufting Machine Operator Relationship Specialty Start Date End Date Loy Curz MD PCP - General 08/31/22 documented as of this encounter
--- OUTSIDE RECORDS SUMMARY | 2025-05-26 13:54 | XMS_ITS | Encounter Summary ---
Author Organization Healthcare Address [address] [place] [address] Care Team Providers Care Liner Machine Operator Helper Name Role Phone Loy Cruz MD Primary Care Provider [phone] Encounter Details Date Type Department Care Team (Late st Contact Info) Description 08/02/2024 Orders Only External Location [address] [place] [phone] Provider, External 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 Tobacco Use Types Packs/Day Years Used Date Smoking Tobacco: Every Day Cigarettes 1 41.8 Started: 1983 Passive Smoke Exposure: Current Smokeless [...] Description 07/01/2025 2:00 PM EST Office Visit [facility] [address] [place] [address] Pita Hewitt MD [address] [place] [address] 08/25/2025 1:15 PM EST Office Visit [facility] [address] [place] [address] Rita Amezcua MD [address] [place] [address] 02/16/2026 10:00 AM EDT Office Visit [facility] [place] [address] [place] [address] Hernandez Arzate MD [address] [place] [address] documented as of this encounter [...] documented as of this encounter Care Teams Liner Machine Operator Helper Relationship Specialty Start Date End Date Loy Cruz MD PCP - General 08/31/22 documented as of this encounter
--- OUTSIDE RECORDS SUMMARY | 2025-05-26 13:54 | XMS_ITS | Encounter Summary ---
Author Organization Healthcare Address [address] [place] [address] Care Team Providers Care Mortgage Or Loan Underwriter Name Role Phone Loy Cruz MD Primary Care Provider [phone] Encounter Details Date Type Department Care Team (Latest Contact Info) Description 04/15/2025 Travel 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 Tobacco Use Types Packs/Day [...] Description 07/01/2025 2:00 PM EST Office Visit [facility] [address] [place] [address] Pita Hewitt MD [address] [place] [address] 08/25/2025 1:15 PM EST Office Visit [facility] [address] [place] [address] Rita Amezcua MD [address] [place] [address] 02/16/2026 10:00 AM EDT Office Visit [facility] [place] [address] [place] [address] Hernandez Arzate MD [address] [place] [address] documented as of this encounter [...] documented as of this encounter Care Teams Mortgage Or Loan Underwriter Relationship Specialty Start Date End Date Loy Cruz MD PCP - General 08/31/22 documented as of this encounter
--- OUTSIDE RECORDS SUMMARY | 2025-05-26 13:54 | XMS_ITS | Encounter Summary ---
Author Organization [employer] ([place], [place], [place], [place], [place]) Address [address] [place] [address] Care Team Providers Care Interventional Physiatrist Name Role Phone Loy Cruz MD Primary Care Provider [phone] Encounter Details Date Type Department Care Team (Late st Contact Info) Description 10/06/2020 Transcribed Document [facility] [address] [place] [address] ProviderMarly MD [address] [place] [address] 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 Tobacco Use Types Packs/Day Years Used Date Smoking Tobacco: Never Assessed Comments Unknown Sex and Gender Information Value Date Recorded Sex Assigned at Not on file Legal Sex Female 3:39 PM CDT Gender Identity Not on file Sexual Orientation Not on file documented as of this encounter Miscellaneous Notes * [employer] Conversion Note - Marly ProviderMD - 10/06/2020 5:45 PM CDT Nursing Discharge [...] - 10/06/2020 17:46 EDT Electronically signed by Darell Orta Conversion Vice President Consulting Services [employer] at 11/07/2022 12:17 PM CDT documented in this encounter Plan of Treatment Not on file documented as of this encounter Visit Diagnoses Not on filedocumented in this encounter Care Teams Interventional Physiatrist Relationship Specialty Start Date End Date Loy Cruz MD [address] [place] [address] PCP - General Family Medicine 04/18/23 documented as of this encounter
--- OUTSIDE RECORDS SUMMARY | 2025-05-26 13:54 | XMS_ITS | Encounter Summary ---
Author Organization Healthcare Address [address] [place] [address] Care Team Providers Care Door Operator Name Role Phone Loy Cruz MD Primary Care Provider [phone] Encounter Details Date Type Department Care Team (Late st Contact Info) Description 08/10/2024 Orders Only External Location [address] [place] [phone] Provider, External 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 Tobacco Use Types [...] Description 07/01/2025 2:00 PM EST Office Visit [facility] [address] [place] [address] Pita Hewitt MD [address] [place] [address] 08/25/2025 1:15 PM EST Office Visit [facility] [address] [place] [address] Rita Amezcua MD [address] [place] [address] 02/16/2026 10:00 AM EDT Office Visit [facility] [place] Luis [address] [place] [address] Hernandez Arzate MD [address] [place] [address] documented as of this encounter [...] documented as of this encounter Care Teams Door Operator Relationship Specialty Start Date End Date Loy Cruz MD PCP - General 08/31/22 documented as of this encounter
--- OUTSIDE RECORDS SUMMARY | 2025-05-26 13:54 | XMS_ITS | Encounter Summary ---
Author Organization [employer] ([place], [place], [place], [place], [place]) Address [address] [place] [address] Care Team Providers Care Entry Level Installation Technician Name Role Phone Loy Cruz MD Primary Care Provider [phone] Encounter Details Date Type Department Care Team (Late st Contact Info) Description 10/06/2020 Transcribed Document [facility] [address] [place] [address] ProviderMarly MD [address] [place] [address] 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 Tobacco Use Types [...] Performed On: 10/06/2020 15:58 EDT by JOSEFINA CORRIGAN, RN Vital Measurements Temperature Source : Temporal [...] Source : Chart Height Entry Format : [place] Height, Feet : 5 ft(Converted to: 152 cm, 60 Inch) Height, Inches : 0 Inch(Converted to: 0 ft 0 Inch, 0.00 cm) Clinical Height : 152.4 cm Weight Source : Standing scale Weight Entry Format : [place] Clinical Dosing Weight : 43.18 kg Weight, Pounds : 95 lb Body Surface Area (BSA) : 1.36 m2 Body Mass Index : 18.6 kg/m2 (LOW) [place] Body Weight : 45 kg JOSEFINA CORRIGAN [...] JOSEFINA CORRIGAN RN - 10/06/2020 16:03 EDT [place] Suicide Severity Rating Scale (C-SSRS) CSSRS Past [...] Scale Risk Level : 0-24 Low Risk [place] Fall Interventions : Adequate lighting, Call device [...] on filedocumented in this encounter Care Teams Entry Level Installation Technician Relationship Specialty Start Date End Date Loy Cruz MD [address] [place] [address] PCP - General Family Medicine 04/18/23 documented as of this encounter
--- OUTSIDE RECORDS SUMMARY | 2025-05-26 13:54 | XMS_ITS | Encounter Summary ---
Author Organization Healthcare Address [address] [place] [address] Care Team Providers Care Retail Merchandising Manager Name Role Phone Loy Cruz MD Primary Care Provider [phone] Encounter Details Date Type Department Care Team (Latest Contact Info) Description 05/18/2025 Travel 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 Tobacco Use Types Packs/Day [...] Description 07/01/2025 2:00 PM EST Office Visit [facility] [address] [place] [address] Pita Hewitt MD [address] [place] [address] 08/25/2025 1:15 PM EST Office Visit [facility] [address] [place] [address] Rita Amezcua MD [address] [place] [address] 02/16/2026 10:00 AM EDT Office Visit [facility] [place] Luis [address] [place] [address] Hernandez Arzate MD [address] [place] [address] documented as of this encounter [...] documented as of this encounter Care Teams Retail Merchandising Manager Relationship Specialty Start Date End Date Loy Cruz MD PCP - General 08/31/22 documented as of this encounter
--- OUTSIDE RECORDS SUMMARY | 2025-05-26 13:54 | XMS_ITS | Encounter Summary ---
Author Organization [employer] ([place], [place], [place], [place], [place]) Address [address] [place] [address] Care Team Providers Care Wind Energy Technician Name Role Phone Loy Cruz MD Primary Care Provider [phone] Encounter Details Date Type Department Care Team (Late st Contact Info) Description 10/06/2020 Transcribed Document [facility] [place] [address] ProviderMarly MD [address] [place] [address] 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 Tobacco Use Types [...] Ramsay MD - 10/06/2020 4:36 PM CDT [place] [id number] BRISA MCLEAN :1955 Visit Time:10/06/2020 Your Visit Summary Your Care Team Admitting Physician - KINZA BRENNER MD-OBG Attending Physician - KINZA BRENNER MD-OBG Primary Care Physician - VINITA HARDIN (REF), -[facility] Referring Physician - KINZA BRENNER MD-OBG [...] your dental hygiene while using zoledronic acid. [place] and floss your teeth regularly. If you [...] may report side effects to FDA at 5-994-QGS-0952. What other drugs will affect zoledronic acid? Zoledronic acid can harm your kidneys, especially if you also use certain medicines for infections, cancer, osteoporosis, organ transplant rejection, bowel disorders, or pain or arthritis (including aspirin, Tylenol, Advil, and Aleve). Other drugs may affect zoledronic acid, including prescription and sfiy-zdy-cbliynl medicines, vitamins, and herbal products. Tell your [...] to ensure that the information provided by [employer] ('[employer]') is accurate, up-to-date, and complete, but no guarantee is made to that effect. Drug information contained herein may be time sensitive. [employer] information has been compiled for use by healthcare practitioners and consumers in the [place] and therefore [employer] does not warrant that uses outside of the [place] are appropriate, unless specifically indicated otherwise. [employer] drug information does not endorse drugs, diagnose patients or recommend therapy. [employer] drug information is an informational resource designed [...] effective or appropriate for any given patient. [employer] does not assume any responsibility for any aspect of healthcare administered with the aid of information [employer] provides. The information contained herein is not intended to cover all possible uses, directions, precautions, warnings, drug interactions, allergic reactions, or adverse effects. If you have questions about the drugs you are taking, check with your doctor, nurse or pharmacist. Copyright 9778-1009 [employer]. Version: 17.. Revision Date: 01/20/2020. calcium carbonate [...] may report side effects to FDA at 0-255-MIL-7595. What other drugs can affect calcium carbonate? Calcium can make it harder for your body to absorb certain medicines. If you take other medications, take them at least 2 hours before or 4 or 6 hours after you take calcium carbonate. Other drugs may interact with calcium carbonate, including prescription and akye-eau-autmidn medicines, vitamins, and herbal products. Tell your [...] to ensure that the information provided by [employer]. ('[employer]') is accurate, up-to-date, and complete, but no guarantee is made to that effect. Drug information contained herein may be time sensitive. [employer] information has been compiled for use by healthcare practitioners and consumers in the [place] and therefore [employer] does not warrant that uses outside of the [place] are appropriate, unless specifically indicated otherwise. [employer] drug information does not endorse drugs, diagnose patients or recommend therapy. [employer] drug information is an informational resource designed [...] effective or appropriate for any given patient. [employer] does not assume any responsibility for any aspect of healthcare administered with the aid of information [employer] provides. The information contained herein is not intended to cover all possible uses, directions, precautions, warnings, drug interactions, allergic reactions, or adverse effects. If you have questions about the drugs you are taking, check with your doctor, nurse or pharmacist. Copyright 2419-7959 [employer]. Version: 7.01. Revision Date: 07/03/2017. Emergency Awareness [...] Assistance with quitting is available by contacting 8-281-AQGRNOW. This is a free resource providing counseling, [...] was given the opportunity to ask questions. Patient/Accounting Consultant Name: Patient/Accounting Consultant Signature: Relationship to Patient: Clinician/Hospital Accounting Consultant Signature: Date: Electronically signed by [facility] Conversion Program Technician Cerner at 11/07/2022 11:56 AM CDT documented in this encounter Plan of Treatment Not on file documented as of this encounter Visit Diagnoses Not on filedocumented in this encounter Care Teams Wind Energy Technician Relationship Specialty Start Date End Date Loy Cruz MD [address] [facility] [place] [address] PCP - General Family Medicine 04/18/23 documented as of this encounter
--- OUTSIDE RECORDS SUMMARY | 2025-05-26 13:54 | XMS_ITS | Referral Summary ---
Author Organization [employer] ([place], [place], [place], [place], [place]) Address [address] [place] [address] Care Team Providers Care Optician Apprentice Dispensing Name Role Phone Loy Cruz MD Primary Care Provider [phone] Allergies Active Allergy Reactions Criticality Noted Date [...] Date Toño rded Speak language other than [place]ican at home Not on file 08/04/2023 Want [...] Quach MD HEALTH MAINTENANCE Final Result * DEXA SCAN (08/05/2019) Anatomical Region Laterality Modality Other us Antoinette Quach MD HEALTH MAINTENANCE Final Result from Last 3 Months or Most Recently Relevant to Health Maintenance Insurance [employer] P[employer] MAP Care Teams Optician Apprentice Dispensing Relationship Specialty Start Date End Date Loy Cruz MD [address] [place] [address] PCP - General Family Medicine 04/18/23
--- OUTSIDE RECORDS SUMMARY | 2025-05-26 13:54 | XMS_ITS | Encounter Summary ---
Author Organization Healthcare Address [address] [place] [address] Care Team Providers Care Desk Clerk Name Role Phone Loy Cruz MD Primary Care Provider [phone] Encounter Details Date Type Department Care Team (Latest Contact Info) Description 03/31/2025 Travel 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 Tobacco Use Types Packs/Day [...] Description 07/01/2025 2:00 PM EST Office Visit [facility] [address] [place] [address] Pita Hewitt MD [address] [place] [address] 08/25/2025 1:15 PM EST Office Visit [facility] [address] [place] [address] Rita Amezcua MD [address] [place] [address] 02/16/2026 10:00 AM EDT Office Visit [facility] [place] [address] [place] [address] Hernandez Arzate MD [address] [place] [address] documented as of this encounter [...] documented as of this encounter Care Teams Desk Clerk Relationship Specialty Start Date End Date Loy Cruz MD PCP - General 08/31/22 documented as of this encounter
[2025-05-26 14:00] VITALS: BP 102/55; PULSE 72; RESP 18; O2SAT 98
[2025-05-26] MEDS: ZOLEDRONIC ACID/MANNITOL-WATER 5 MG/100 ML PGGYBK.BTL 400 MG IV (14:00)
[2025-05-26] MEDS: 0.9 % SODIUM CHLORIDE 50 ML 400 ML IV (14:02)
[2025-05-26 14:23] VITALS: BP 101/59; PULSE 67; RESP 18; O2SAT 98
== END 2025-05-26 23:59 | disposition home or self-care (01) ==
PROVIDERS: PCP Family Medicine; Visit Provider Family Medicine
DX: M81.0 Age-related osteoporosis without current pathological fracture (principal)
CPT/HCPCS: 96374; J3489

== ENCOUNTER 2025-07-08 13:28 | Outpatient (CLI) | payer MEDICARE, SELFPAY ==
--- OUTSIDE RECORDS SUMMARY | 2025-05-17 05:35 | XMS_ITS | Encounter Summary ---
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, bilateral [H40.053] Age-related nuclear cataract of both eyes [H25.13] Plateau iris of both eyes [H21.82] Procedures DE XCAPSL CTRC RMVL INSJ IO LENS PROSTH W/ECP DE XCAPSL CTRC RMVL INSJ IO LENS PROSTH CPLX W/ECP DE XCAPSL CTRC RMVL INSJ IO LENS PROSTH CPLX W/ECP DE ECP CILIARY BODY DSTRJ W/O RMVL CRYSTALLINE LENS PHACOEMULSIFICATION, CATARACT, WITH IOL INSERTION AND ENDOSCOPIC CYCLOPHOTOCOAGULATION PHACOEMULSIFICATION, CATARACT, WITH IOL INSERTION AND ENDOSCOPIC CYCLOPHOTOCOAGULATION Pita Hewitt MD [address] [address] Phone: tel: fax: [facility] [address] [place] [address] Phone: tel: Referral ID Status Reason Start Date Expiration Date Visits Re quested Visits Authorized [id number] 1 1 Encounter Details Date Type Department Care Team (Latest Contact Info) Description 05/17/2025 6:35 AM EDT - 05/17/2025 10:30 AM EDT Hospital Encounter [facility] [address] [place] [address] Pita Hewitt MD [address] [place] [address] Age-related nuclear cataract of both eyes (Primary Dx); Ocular hypertension, bilateral; Plateau iris of both eyes Discharge Disposition: Home or Self Care 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 Tobacco Use Types Packs/Day Years Used Date Smoking Tobacco: Former Cigarettes 1 42 S tarted: 1983 Passive Smoke Exposure: Current [...] documented in this encounter Functional Status * Question Answer Date of Assessment Author Precautions Fall risk 05/17/2025 9:15 AM EDT Wendy Aguayo, RN * Calculated C-SSRS Risk Score (Lifetime/Recent) Answer Date of Assessment Author No Risk Indicated 05/17/2025 8:30 AM EDT Rosa Chappell, RN * Question Answer Date of Assessment Author 1. Wish to be (Past 1 Month) No 025 8:30 AM EDT Rosa Chappell, DIMA 2. Non-Specific Active Suici enid Thoughts (Past 1 Month) No 05/17/2025 8:30 AM EDT Rosa Chappell RN 6. Suicidal Behavior (Lifetime) No 8:30 AM EDT Rosa Chappell RN documented as of this encounter Mental Status * Question Answer Entry Date Author Precautions Fall risk 05/17/2025 9:15 AM EDT Wendy Aguayo RN documented in this encounter Discharge Instructions * Discharge Instructions* Ankita Jackie Mckeon RN - 05/17/2025 7:14 AM EDT Images [...] of consciousness or you can't be awakened [email or web address] last reviewed this educational content on 07/22/2021 ?? [id number] [employer]. All rights reserved. This information is not [...] is free. The free telephone quit line: (0-427-FGEPXSF). Support groups: Your local health department may offer these virtually or in person. [place]'s resources to help you quit: http://www.[facility].edu/TobaccoFree/ - Click on the Quit Here! tab. Web sites that offer help quitting: www.smokefree.gov, www.becomeanex.org. Tobacco Treatment Counselors and your health care provider. Medicare and Medicaid pay for visits todiscuss quitting tobacco. employees, retirees, and their spouses or sponsored dependents can get free nicotine replacementtherapy and coaching. Visit www.[facility].edu/HR/Wellness/consults.html. Visit the [facility] [...] this encounter Medications at Time of Discharge albuterol 108 (90 Base) MCG/ACT inhaler INHALE [...] Take 1 tablet by mouth daily. 12/08/2024 oxyCODONE-acetam inophen (Percocet) 5-325 MG tablet 02/03/2025 rosuvastatin (Crestor) 20 MG tablet Take 1 tablet by mouth daily. 12/31/2024 documented as of this encounter Miscellaneous Notes * Anesthesia PACU Signout - Latonia Lucas MD - 05/17/2025 10:30 AM EDT Patient: [...] and nonlabored ventilation Discharge Disposition: home * Wendy Killian RN - 05/17/2025 9:25 AM EDT Images [...] the following, call the Eye Clinic at [phone]. ? Fever over 101??F. ? Pain is not helped by pain medicine. ? Vision suddenly becomes worse. ? Redness or swelling gets worse. ? Increased bleeding. ? Bleeding or discharge from the eye. ? Nausea or vomiting. ? You have questions or concerns about your surgery or medicine. For emergencies, call [phone] and ask for the eye doctor salesperson burial needs. * Op Note - Pita Hewitt MD - 05/17/2025 8:40 AM EDT Operative Note Date: 05/17/25 Location: [facility] OR Name: Brisa Mclean, : 1955, Diagnoses: Pre-op Diagnosis Ocular hypertension, bilateral Age-related nuclear cataract of both eyes Plateau iris of both eyes Post-op Diagnosis Ocular hypertension, bilateral Age-related nuclear cataract of both eyes Plateau iris of both eyes Procedure(s): cataract extraction with posterior chamber lens implant, Endocyclophotocoagulation - left eye Complex with Malyugin ring. Attending Surgeon(s): * Pita Hewitt - Primary Eye Clinic Manager(s): * Shayan Vasquez MD - Resident - Assisting Anesthesia: Monitor Anesthesia Care ASA: III Blood Administration: Blood Product Administration History None Estimated Blood Loss: Minimal Drains: * None in log * Implants Type Name Action Serial No. LENS MONOFOCAL CLEAR [id number] - [id number] Implanted [id number] Specimen: Findings: poor dilation with floppy iris, [...] the lens was emulsified in standard d rtsuy-vru-bahydlm fashion. Residual cortical material was removed using [...] 05/19/2025 9:38 AM EDT Signature only. * [facility] [employer] - Jackie Luciano RN - 05/17/2025 [...] the following, call the Eye Clinic at [phone]. ? Fever over 101??F. ? Pain is not helped by pain medicine. ? Vision suddenly becomes worse. ? Redness or swelling gets worse. ? Increased bleeding. ? Bleeding or discharge from the eye. ? Nausea or vomiting. ? You have questions or concerns about your surgery or medicine. For emergencies, call [phone] and ask for the eye doctor salesperson burial needs. * PAT Phone Note - Tamra Gabriel RN - 05/04/2025 2:25 PM EDT HPI Brisa Mclean is a 69 y.o. female [...] of surgery cholecalciferol (Vitamin D-3) 50 MCG (1999 UT) tablet Hold day of surgery cyclobenzaprine [...] Level [address] ([address]) Level 1 (Shuttle). [place] on the ground floor of [facility] [facility]. You MUST have a responsible adult available for transport to and from hospital Visitation policy for the day of surgery reviewed Bring insurance card, photo ID, along with power of senior attorney, guardianship or advanced directives if applicable [...] Care Team (Late st Contact Info) Description 08/12/2025 12:30 PM EST Office Visit [facility] [address] [place] [address] Pita Hewitt MD [address] [place] [address] 09/01/2025 3:00 PM EST Office Visit [facility] [address] [place] [address] Rita Amezcua MD [address] [place] [address] 02/16/2026 10:00 AM EDT Office Visit [facility] [facility] [address] [facility] [place] [address] Hernandez Arzate MD [address] [place] [id number] documented as of this encounter Procedures Procedure Name Priority Date/Time Associated Diagnosis Comments DE XCAPSL CTRC RMVL INSJ IO LENS PROSTH CPLX W/ECP 05/17/2025 8:26 AM EDT Ocular hypertension, bilateral Age-related nuclear cataract of both eyes Plateau iris of both eyes DE XCAPSL CTRC RMVL INSJ IO LENS PROSTH [...] Hcl 0.1% (1 mg/mL) Ophthalmic injectable solution. [facility] [id number]. aware of allergy to levofloxacin - GI reaction.) ofloxacin (Ocuflox) 0.3 % ophthalmic solution (CANCELED) As needed, Starting on Sat05/17/25 at 0905, Until Sat05/17/25 at 0910, Routine, Intraprocedure 09 (Given - Provid er: Pita Hewitt MD [...] 0906, Until Sat05/17/25 at 0910, Routine, Intraprocedure 09 (Given - Provid er: Pita Hewitt MD [...] documented as of this encounter Care Teams Planing Machine Operator Relationship Specialty Start Date End Date Loy Cruz MD PCP - General 08/31/22 documented as of this encounter
--- OUTSIDE RECORDS SUMMARY | 2025-05-17 07:20 | XMS_ITS | Encounter Summary ---
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, bilateral [H40.053] Age-related nuclear cataract of both eyes [H25.13] Plateau iris of both eyes [H21.82] Procedures AZ XCAPSL CTRC RMVL INSJ IO LENS PROSTH W/ECP AZ XCAPSL CTRC RMVL INSJ IO LENS PROSTH CPLX W/ECP AZ XCAPSL CTRC RMVL INSJ IO LENS PROSTH CPLX W/ECP AZ ECP CILIARY BODY DSTRJ W/O RMVL CRYSTALLINE LENS PHACOEMULSIFICATION, CATARACT, WITH IOL INSERTION AND ENDOSCOPIC CYCLOPHOTOCOAGULATION PHACOEMULSIFICATION, CATARACT, WITH IOL INSERTION AND ENDOSCOPIC CYCLOPHOTOCOAGULATION Pita Hewitt MD [address] [address] Phone: tel: fax: [facility] [address] [place] [address] Phone: tel: Referral ID Status Reason Start Date Expiration Date Visits Re quested Visits Authorized [id number] 1 1 Encounter Details Date Type Department Care Team (Latest Contact Info) Description 05/17/2025 8:20 AM EDT - 05/17/2025 9:10 AM EDT Surgery [facility] [address] [place] [address] Pita Hewitt MD [address] [place] [address] PHACOEMULSIFICATION, CATARACT, WITH IOL INSERTION AND ENDOSCOPIC CYCLOPHOTOCOAGULATION [70494 (CPT ) +1 more] Surgery Details Date/Time Status Location OR Service Patient Class Case Class Case Type Trauma Case? 05/17/2025 8:20 AM Posted [facility] 4OR0 Ophthalmology [facility] Outpatient Surgery E1 - Elective (Do not proceed without financial clearance) Panel 1 Procedure LRB Anes Op Region Wound Class Comments PHACOEMULSIFICATION, CATARAC T, WITH IOL INSERTION AND ENDOSCOPIC CYCLOPHOTOCOAGULATION Left Monitor Anesthesia Care Surgeon Surgeon Role Service Panel Shayan Vasquez MD Resident - Assisting 1 Pita Hewitt MD Primary Ophthalmology 1 documented in this encounter 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 Tobacco Use Types Packs/Day Years Used Date Smoking Tobacco: Former Cigarettes 1 42 S tarted: 1984 Passive Smoke Exposure: Current [...] of Assessment Author Precautions Fall risk 05/17/2025 8:40 AM EDT Rosa Galo RN * Calculated C-SSRS Risk Score (Lifetime/Recent) Answer Date of Assessment Author No Risk Indicated 05/17/2025 8:30 AM EDT Rosa Chappell RN * Question Answer Date of Assessment Author 1. Wish to be (Past 1 Month) No 025 8:30 AM EDT Rosa Chappell RN 2. Non-Specific Active Suici enid Thoughts (Past 1 Month) No 05/17/2025 8:30 AM DAYANNAT Rosa Chappell RN 6. Suicidal Behavior (Lifetime) No 8:30 AM EDT Rosa Chappell RN documented as of this encounter Mental Status * Question Answer Entry Date Author Precautions Fall risk 05/17/2025 8:40 AM EDT Rosa Galo RN documented in this encounter Discharge Instructions [...] of consciousness or you can't be awakened [employer] last reviewed this educational content on 07/22/2021 ?? [id number] The [employer]. All rights reserved. This information is not [...] is free. The free telephone quit line: (6-661-WWVAEUS). Support groups: Your local health department may offer these virtually or in person. 's resources to help you quit: http://www.[facility]/TobaccoFree/ - Click on the Quit Here! tab. Web sites that offer help quitting: www.smokefree.gov, www.becomeanex.org. Tobacco Treatment Counselors and your health care provider. Medicare and Medicaid pay for visits todiscuss quitting tobacco. employees, retirees, and their spouses or sponsored dependents can get free nicotine replacementtherapy and coaching. Visit www.[facility]/HR/Wellness/consults.html. Visit the [employer] [facility]. It offers free pamphlets on [...] the following, call the Eye Clinic at [phone]. ? Fever over 101??F. ? Pain is not helped by pain medicine. ? Vision suddenly becomes worse. ? Redness or swelling gets worse. ? Increased bleeding. ? Bleeding or discharge from the eye. ? Nausea or vomiting. ? You have questions or concerns about your surgery or medicine. For emergencies, call [phone] and ask for the eye doctor center lead consultant. * Op Note - Pita Hewitt MD - 05/17/2025 8:40 AM EDT Operative Note Date: 05/17/25 Location: [facility] OR Name: Brisa Mclean, : 1955, Diagnoses: Pre-op Diagnosis Ocular hypertension, bilateral Age-related nuclear cataract of both eyes Plateau iris of both eyes Post-op Diagnosis Ocular hypertension, bilateral Age-related nuclear cataract of both eyes Plateau iris of both eyes Procedure(s): cataract extraction with posterior chamber lens implant, Endocyclophotocoagulation - left eye Complex with Malyugin ring. Attending Surgeon(s): * Pita Hewitt - Primary Search Coordinator(s): * Shayan Vasquez MD - Resident - Assisting Anesthesia: Monitor Anesthesia Care ASA: III Blood Administration: Blood Product Administration History None Estimated Blood Loss: Minimal Drains: * None in log * Implants Type Name Action Serial No. LENS MONOFOCAL CLEAR CC60WF 22.5 - [id number] Implanted [id number] Specimen: Findings: poor dilation with floppy iris, [...] the lens was emulsified in standard d snrue-ymd-drvdgmk fashion. Residual cortical material was removed using [...] the PACU in stable condition. I, Pita Hewitt, was scrubbed and present for the [...] 9:38 AM EDT Signature only. * Zach Conklin - Jackie Luciano RN - 05/17/2025 7:14 [...] the following, call the Eye Clinic at [phone]. ? Fever over 101??F. ? Pain is not helped by pain medicine. ? Vision suddenly becomes worse. ? Redness or swelling gets worse. ? Increased bleeding. ? Bleeding or discharge from the eye. ? Nausea or vomiting. ? You have questions or concerns about your surgery or medicine. For emergencies, call [phone] and ask for the eye doctor center lead consultant. * PAT Phone Note - Tamra Gabriel [...] Level [address] ([address]) Level 1 (Shuttle). [place] on the ground floor of [place]. You MUST have a responsible adult available for transport to and from hospital Visitation policy for the day of surgery reviewed Bring insurance card, photo ID, along with power of attorney law clerk, guardianship or advanced directives if applicable Do [...] Description 08/12/2025 12:30 PM EST Office Visit [facility] [address] [place] [address] Pita Hewitt MD [address] [place] [address] 09/01/2025 3:00 PM EST Office Visit [facility] [address] [place] [address] Rita Amezcua MD [address] [place] [address] 02/16/2026 10:00 AM EDT Office Visit [facility] [place] [facility] [address] [place] [id number] Hernandez Arzate MD [address] [place] [address] documented as of this encounter Procedures Procedure Name Priority Date/Time Associated Diagnosis Comments AZ XCAPSL CTRC RMVL INSJ IO LENS PROSTH CPLX W/ECP 05/17/2025 8:26 AM EDT Ocular hypertension, bilateral Age-related nuclear cataract of both eyes Plateau iris of both eyes AZ XCAPSL CTRC RMVL INSJ IO LENS PROSTH [...] Routine 0941 (Given - Provid er: Wendy Aguayo, DIMA) flurbiprofen (Ocufen) 0.03 % ophthalmic solution 1 [...] Hcl 0.1% (1 mg/mL) Ophthalmic injectable solution. [facility] [id number]. aware of allergy to levofloxacin - GI [...] documented as of this encounter Care Teams Sign Out Clerk Relationship Specialty Start Date End Date Loy Cruz MD PCP - General 08/31/22 documented as of this encounter
--- OUTSIDE RECORDS SUMMARY | 2025-05-17 07:31 | XMS_ITS | Encounter Summary ---
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] Procedures TN XCAPSL CTRC RMVL INSJ IO LENS PROSTH W/ECP TN XCAPSL CTRC RMVL INSJ IO LENS PROSTH CPLX W/ECP TN XCAPSL CTRC RMVL INSJ IO LENS PROSTH CPLX W/ECP TN ECP CILIARY BODY DSTRJ W/O RMVL CRYSTALLINE LENS PHACOEMULSIFICATION, CATARACT, WITH IOL INSERTION AND ENDOSCOPIC CYCLOPHOTOCOAGULATION PHACOEMULSIFICATION, CATARACT, WITH IOL INSERTION AND ENDOSCOPIC CYCLOPHOTOCOAGULATION Pita Hewitt MD [address] [address] Phone: tel: fax: [facility] [address] [place] [address] Phone: tel: Referral ID Status Reason Start Date Expiration Date Visits Re quested Visits Authorized [id number] 1 1 Encounter Details Date Type Department Care Team ([facility] st Contact Info) Description 05/17/2025 8:31 AM EDT Anesthesia Event [facility] [address] [place] [address] Latonia Lucas MD [address] [place] [address] Anesthesia Record Procedure Summary Procedure Name Responsible [...] as of this encounter Functional Status * Question Answer Date of Assessment Author Precautions Fall risk 05/17/2025 9:15 AM EDT Wendy Aguayo RN * Calculated C-SSRS Risk Score (Lifetime/Recent) [...] Wendy Aguayo RN documented in this encounter Miscellaneous Notes * Anesthesia Postprocedure [...] place once arrived to PACU. Report to SUPERVISOR LENDING ACTIVITIES and care accepted. Vital signs stable. No [...] IOL INSERTION AND ENDOSCOPIC CYCLOPHOTOCOAGULATION (Left) Location: [facility] OR Surgeons: Pita Hewitt MD Relevant Problems [...] ABG No results found for: PHART , BWE2COD , PO2ART , SO2ART , BEART , [id number] , HCTART , SODIUMART , POTASSIUMART , POCTCL , POCGLU , IONCALART , LACTATE No results found for: PH , PCO2 , PO2 , [id number] , BASEEXC , HCTSYR , KSYR , CLSYR , GLUSYR , CAION , LACTATE ECHO No echocardiogram results found for the past 12 months PFTs No results found for: RVL6HQT , EGL2GHRD , OYQ8XAL , FVCPRED BP Readings from Last 5 Encounters: 02/10/25 137/85 Physical Exam Airway Mallampati: III Mouth opening: normal TM distance: >3 FB Cardiovascular Rhythm: regular Rate: normal Dental - normal exam Pulmonary Breath sounds clear to auscultation Neurological Oriented: normal to time, normal to place and normal to person Skin Musculoskeletal Extremities Anesthesia Plan ASA 3 Plan was reviewed with: HITCHER Anesthesia technique(s) discussed with the patient/family: MAC [...] Description 08/12/2025 12:30 PM EST Office Visit [facility] [address] [place] [address] Pita Hewitt MD [address] [place] [address] 09/01/2025 3:00 PM EST Office Visit [facility] [address] [place] [address] Rita Amezcua MD [address] [place] [address] 02/16/2026 10:00 AM EDT Office Visit [facility] [place] [facility] [address] [place] [phone] Hernandez Arzate MD [address] [place] [address] documented as of this encounter [...] Sat05/17/25 at 0845, Routine New Bag 05/17/2025 8:31 [...] documented as of this encounter Care Teams Shipping Agent Relationship Specialty Start Date End Date Loy Cruz MD PCP - General 08/31/22 documented as of this encounter
--- OUTSIDE RECORDS SUMMARY | 2025-05-18 08:15 | XMS_ITS | Encounter Summary ---
Author Organization [facility] Address [address] [place] [address] Care Team Providers Care Transformation Manager Name Role Phone Loy Cruz MD Primary Care Provider [phone] Encounter Details Date Type Department Care Team (Late st Contact Info) Description 05/18/2025 9:15 AM EDT Office Visit [facility] [address] [place] [address] Pita Hewitt MD [address] [address] Status post left cataract extraction [...] MD - 05/18/2025 9:15 AM EDT Location: [facility] - 4th floor, [facility] MEDICATIONS: Use the provided drops four [...] of these, there is a Eye Doctor anti air warfare operations officer 24 hours a day, 7 days a week, year-round. After hours and on weekends, call the 24-hour number: . You can also call [facility] Inclusion Specialist and ask for the Eye Doctor anti air warfare operations officer : . During business hours, the Glaucoma Service phone is [phone]. Thank you for entrusting us with your [...] IOPs had been 18-19 OU at both [facility] and with Dr. Amezcua in Mar 2024. [...] from baseline with continued Cosopt use, but group home she would like to be off drops [...] Amezcua pending, she has an appointment in [place] for FA OCT retina shows trace early cystic changes cc: Dr. Amezcua. Dr. Armendariz documented in this encounter Plan of Treatment Upcoming Encounters Date Type Department Care Team (Late st Contact Info) Description 08/12/2025 12:30 PM EST Office Visit [place] [facility] [address] [place] [address] Pita Hewitt MD [address] [place] [address] 09/01/2025 3:00 PM EST Office Visit [place] [facility] [address] [place] [id number] Rita Amezcua MD [address] [place] [address] 02/16/2026 10:00 AM EDT Office Visit [facility] [place] [address] [place] [address] Hernandez Arzate MD [address] [place] [address] documented as of this encounter Visit Diagnoses [...] documented as of this encounter Care Teams Transformation Manager Relationship Specialty Start Date End Date Loy Cruz MD PCP - General 08/31/22 documented as of this encounter
--- OUTSIDE RECORDS SUMMARY | 2025-05-27 13:00 | XMS_ITS | Encounter Summary ---
Author Organization [facility] Address [address] [place] [address] Care Team Providers Care Pharmacist'S Aide Name Role Phone Loy Cruz MD Primary Care Provider [phone] Encounter Details Date Type Department Care Team (Late st Contact Info) Description 05/27/2025 1:00 PM EST Office Visit [facility] [address] [place] [address] Pita Hewitt MD [address] [address] Status post left cataract extraction (Primary Dx) 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 Tobacco Use Types [...] Progress Notes - Pita Hewitt MD - 05/27/2025 1:00 PM EST PO 10 days after CE IOL / ECPC OS - called with concerns, added on today. Using PF / antibx drop QID as directed. Has been taking Cosopt drops BID OU but not tolerating well. ARx OU on arrival She reports left eye has been burning, eye hurts when I move it a certain way and feels like something is it See double sometimes Reports vertical diplopia in right gaze. Also reports FBS. AT POD #1 she was nauseated from anesthesia and eye looks terrible and vision is blurred Recent glaucoma consult requested by Dr. Amezcua. At recent consult from Dr. Armendariz for wet AMD OS, there was concern for twig RVO OS and trace NVI OS. The IOPs were 34 T 24. Recent medrol dose pack.s. Had FA at 04/22. Next follow-up with her is 08/25/25. Previously the IOPs had been 18-19 OU at both [facility] and with Dr. Amezcua in Mar 2024. [...] from baseline with continued Cosopt use, but alf she would like to be off drops [...] related to anesthesia, IOPs are excellent today. 05/27/25: PO ten days post CE IOL / ECPC OS. Exam reassuring with full EOMs, incision intact, no obvious inflammation Reports intermittent vertical binocular diplopia in extreme right gaze. Onset 2-3 days ago. Unclear etiology but may be a transient post op change or residual macular changes post RVO. Rec observation with continued PO taper. Discussed using extra drop of pred OS as needed for FBS but continue taper otherwise. Keep scheduled PO appointment Age related nuclear cataracts both eye Symptomatic, especially with night driving, left worse than right Right eye dominant Used +22.5 [id number] IOL for LEFT eye, Target -0.66 Twig retinal vein occlusion OS Additional work-up with Dr. Amezcua . OCT retina shows trace early cystic changes FA at 04/22 shows: reasonable peripheral perfusion, mottled staining nasal, mild hyperfluoresencein ST macula with punctate expansile dots into an area of pooling but no explanation for NVI. No obvious ciliary mass on UBM 04/22/25. Monitor for now, may just be prominent vascularity but if worsenswill rec repeat UBM with ocular oncology Electronically Signed by: Neto Anne MD - 05/27/2025 - 1:29 PM I have examined, evaluated and discussed the patient with Dr. Anne and agree with assessment and plan as documented above. Pita Hewitt MD cc: Dr. Amezcua. Dr. Armendariz documented in this encounter Plan of Treatment Upcoming Encounters Date Type Department Care Team (Late st Contact Info) Description 08/12/2025 12:30 PM EST Office Visit [facility] [address] [place] [address] Pita Hewitt MD [address] [place] [address] 09/01/2025 3:00 PM EST Office Visit [facility] [address] [place] [address] Rita Amezcua MD [address] [place] [address] 02/16/2026 10:00 AM EDT Office Visit [facility] [place] [address] [place] [address] Hernandez Arzate MD [address] [place] [address] documented as of this encounter Visit Diagnoses Diagnosis Status post left cataract extraction- Primary documented in this encounter Additional Health Concerns Assessment Noted Time PHQ-9 Depression Total Score: 0 02/11/20 25 10:29 AM EDT A fall risk assessment has been complete d for the patient 04/22/2025 2:09 PM EDT A Body Mass Index follow-up plan has been documented for the patient 05/27/2025 10:14 PM EST documented as of this encounter Care Teams Pharmacist'S Aide Relationship Specialty Start Date End Date Loy Cruz MD PCP - General 08/31/22 documented as of this encounter
--- OUTSIDE RECORDS SUMMARY | 2025-07-01 14:00 | XMS_ITS | Encounter Summary ---
Author Organization Healthcare Address [address] [place] [address] Care Team Providers Care Station Mechanic Name Role Phone Loy Cruz MD Primary Care Provider [phone] Encounter Details Date Type Department Care Team (Late Contact Info) Description 07/01/2025 2:00 PM EST Office Visit [facility] [address] [place] [address] Pita Hewitt MD [address] [place] [address] Ocular hypertension, bilateral (Primary Dx); Faith tenderness 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 Tobacco Use Types Packs/Day Years [...] Department Care Team (Late Contact Info) Description 08/12/2025 12:30 PM EST Office Visit [facility] [address] [place] [address] Pita Hewitt MD [address] [place] [address] 09/01/2025 3:00 PM EST Office Visit [facility] [address] [place] [address] Rita Amezcua MD [address] [facility] [address] [place] [address] 02/16/2026 10:00 AM EDT Office Visit [facility] [place] [address] [place] [address] Hernandez Arzate MD [address] [place] [address] documented as of this encounter Visit Diagnoses Diagnosis Ocular hypertension, bilateral- Primary Faith tenderness documented in this encounter Additional Health Concerns Assessment Noted Time PHQ-9 Depression Total Score: 0 02/11/20 10:29 AM EDT A fall risk assessment has been complete d for the patient 07/01/2025 1:42 PM EST A Body Mass Index follow-up plan has been documented for the patient 05/27/2025 10:14 PM EST documented as of this encounter Care Teams Station Mechanic Relationship Specialty Start Date End Date Loy Cruz MD PCP - General 08/31/22 documented as of this encounter
--- OUTSIDE RECORDS SUMMARY | 2025-07-08 13:43 | XMS_ITS | Clinical Summary ---
Author Organization [facility] Address [address] [place] [address] Care Team Providers Care Monotype Keyboard Operator Name Role Phone Loy Cruz MD Primary Care Provider [phone] Allergies Active Allergy Reactions Criticality Noted Date Comments Levofloxacin Nausea And Vomiting,Vomiting 04/10/2023 Abdominal pain Methocarbamol Hives,Other - please document in the comment field High 01/19/2014 Methylprednisolone Palpitations Low 07/24/2023 Penicillins Other - please docum ent in the comment field Low 08/02/2022 Sulfa Drugs Rash Low 04/20/2025 all over body Medications albuterol 108 (90 Base) MCG/ACT inhaler [...] 10 mL 5 Active Additional Information Patient not taking.Reported on 07/01/2025 aspirin 81 MG EC tablet daily. Active [...] (01/20/2025): From Automated Load;Provider: Madie Hopper;Status: Active Maxatawny tenderness 12/05/2015 Overview (01/20/2025): From Automated Load;Provider: Madie [...] Encounters Date Type Department Care Team Description 07/01/2025 2:00 PM EST Office Visit [facility] [address] [place] [address] Pita Hewitt MD Ocular hypertension, bilateral (Primary Dx); Maxatawny tenderness 07/01/2025 Travel 06/21/2025 Telephone [facility] [address] [place] [address] Pita Hewitt MD HCN Same Day Appt/Overbook Request 06/16/2025 Telephone [facility] [address] [place] [address] Pita Hewitt MD HCN - Patient Message 06/14/2025 Telephone [facility] [address] [place] [address] Pita Hewitt MD 05/27/2025 1:00 PM EST Office Visit [facility] [address] [place] [address] Pita Hewitt MD Status post left cataract extraction (Primary Dx) 05/27/2025 Travel 05/27/2025 Telephone [facility] [address] [place] [address] Pita Hewitt MD 05/18/2025 9:15 AM EDT Office Visit [facility] [address] [place] [address] Pita Hewitt MD Status post left cataract extraction (Primary Dx); Plateau iris of both eyes; Ocular hypertension, bilateral 05/18/2025 Travel 05/17/2025 8:31 AM EDT Anesthesia Event [facility] [address] [place] [address] Latonia Lucas MD 05/17/2025 8:20 AM EDT - 05/17/2025 9:10 AM EDT Surgery [facility] [address] [place] [address] Pita Hewitt MD PHACOEMULSIFICATION, CATARACT, WITH IOL INSERTION AND ENDOSCOPIC CYCLOPHOTOCOAGULATION [95074 (CPT ) +1 more] 05/17/2025 6:35 AM EDT - 05/17/2025 10:30 AM EDT Hospital Encounter [facility] [address] [place] [address] Pita Hewitt MD Age-related nuclear cataract of both eyes (Primary Dx); Ocular hypertension, bilateral; Plateau iris of both eyes Discharge Disposition: Home or Self Care 05/17/2025 Travel 05/10/2025 Telephone [facility] [address] [place] [address] Pita Hewitt MD HCN - Patient Message 05/04/2025 Telephone [facility] [address] [place] [address] Rita Amezcua MD HCN Clinical Concern/Question 04/22/2025 2:00 PM EDT Office Visit [facility] [address] [place] [address] Rita Amezcua MD Partial retinal vein occlusion, left (Primary Dx); Exudative age-related macular degeneration, left eye, with active choroidal neovascularization (CMS/HCC); Ocular hypertension, bilateral; Age-related nuclear cataract of both eyes; 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 04/22/2025 8:15 AM EDT Ancillary Procedure [facility] [address] [place] [address] 04/22/2025 8:15 AM EDT Ancillary Procedure [facility] [address] [place] [address] 04/22/2025 Travel 04/16/2025 9:55 PM EDT Ancillary Procedure [facility] [address] [place] [address] 04/15/2025 10:45 AM EDT [facility] [address] [place] [address] Pita Hewitt MD Ocular hypertension, bilateral (Primary Dx); Age-related nuclear cataract of both eyes; Partial retinal vein occlusion, left; Plateau iris of both eyes 04/15/2025 Travel from Last 3 Months Immunizations Immunization [...] Description 08/12/2025 12:30 PM EST Office Visit [facility] [address] [place] [address] Pita Hewitt MD [address] [address] 09/01/2025 3:00 PM EST Office Visit [facility] [address] [place] [address] Rita Amezcua MD [address] [place] [address] 02/16/2026 10:00 AM EDT Office Visit [facility] [place] [facility] [address] [place] [address] Hernandez Arzate MD [address] [place] [address] Health Maintenance Due Date Last Done Comments [facility]-Hepatitis C Screening 1955 [facility]-Medicare Annual Wellness (AWV) 1955 [facility]-Infant/Child/Adol SDOH Screenings 1955 [facility]- SDOH Screenings 1974 [facility]-Adult SDOH Screenings 1974 CT Colonography 2001 Colonoscopy 2001 FIT-DNA 2001 FIT 2001 FOBT 2001 Sigmoidoscopy 2001 [facility]-Colorectal Cancer Screening 2001 [facility]-RSV Vaccine: 60+ Years or (1 - Risk 50-74 years 1-dose series) 2006 [facility]-Zoster Vaccines (1 of 2) 2006 [facility]-Bone Density Scan 08/05/2020 08/05/2019 [id number] Vaccine (2024- season) 2025 05/31/2021, 10/26/2020, 09/28/2020 [facility]-Influenza Vaccine (#1) 03/22/202505/25, 05/17/2023, 05/09/2021, Additional history exists [facility]-Depression Screening 02/10/2026 02/10/2025, 01/20 [facility]-Breast Cancer Screening 11/10/202610/21, 09/26/2023, 08/31/2022, Additional history exists [facility]-DTaP,Tdap,and Td Vaccines (2 - Td or Tdap) 01/12/2031 01/12/2021 [facility]-Pneumococcal Vaccine: 50+ Years Completed 05/25/2024 HPV Vaccines (No Doses Required) Completed [facility]-HIB Vaccines Aged Out No longer e [...] on patient's age to complete this topic Medical Devices Implanted Type Area Automation Manager Device Identifier Shelf Expiration Date Model / Serial / Lot Lens Monofocal Clear [id number] 22.5 - [id number] Implanted:Qty: 1 on 05/17/2025 by Pita Hewitt MD at [facility] Left: Eye [employer]-[id number] 10/19/2028 [id number].225 / [id number] / [id number] Procedures Procedure Name Priority Date/Time Associated Diagnosis Comments MA XCAPSL CTRC RMVL INSJ IO LENS PROSTH CPLX W/ECP 05/17/2025 8:26 AM EDT Ocular hypertension, bilateral Age-related nuclear cataract of both eyes Plateau iris of both eyes MA XCAPSL CTRC RMVL INSJ IO LENS PROSTH [...] EDT Age-related nuclear cataract of both eyes MAMMOGRAPHY BREAST SCREENING TOMOSYNTHESIS BILATERAL Routine 11/10/2024 [...] temporal to fovea with underlying RPE disruption Rita Amezcua MD OPHTH TOMOGRAPHY Final Result [...] Target refraction: - 0.66. Notes Lopez and Jim formulas used. Cylinder: OD +0.6 @ 39 OS +1.1 @ 65 Pita Hewitt MD OPH ULTRASOUND Final Resul t * Mammography Breast Screening Tomosynthesis Bilateral (11/10/2024 [...] 07/24/2021 Mammography Breast Screening Tomosynthesis Bilateral at [facility] 08/31/2022 Mammography Breast Screening Tomosynthesis Bilateral at [facility] 09/26/2023 Mammography Breast Screening Tomosynthesis Bilateral at [facility] BREAST COMPOSITION: The breasts are heterogeneously dense, which may obscure small masses. FINDINGS: There are no suspicious masses, calcifications, or areas of architectural distortion. Loy Cruz MD IMG BI PROCEDURES Final Result from Last 3 Months or Most Recently Relevant to Health Maintenance [facility] Care Teams Monotype Keyboard Operator Relationship Specialty Start Date End Date Loy Cruz MD PCP - General 08/31/22
--- OUTSIDE RECORDS SUMMARY | 2025-07-08 13:43 | XMS_ITS | Encounter Summary ---
Author Organization [facility] Address [address] [place] [address] Care Team Providers Care Hooker Operator Name Role Phone Loy Cruz MD Primary Care Provider [phone] Encounter Details Date Type Department Care Team [...] Author No Risk Indicated 05/17/2025 8:30 AM DAYANNAT Rosa Chappell RN * Question Answer Date of Assessment Author 1. Wish to be (Past 1 Month) No 025 8:30 AM Rosa Rangel RN 2. Non-Specific Active Suici enid Thoughts (Past 1 Month) No 05/17/2025 8:30 AM Rosa Rangel RN 6. Suicidal Behavior (Lifetime) No 10/27/202 5 8:30 AM EDT Rosa Chappell, DIMA documented as of this encounter Mental Status * Question Answer Entry Date Author Precautions Fall risk 05/17/2025 9:15 AM EDT Wendy Aguayo, DIMA documented in this encounter Plan of Treatment Upcoming Encounters Date Type Department Care Team (Late st Contact Info) Description 08/12/2025 12:30 PM EST Office Visit [facility] [address] [place] [address] Pita Hewitt MD [address] [place] [address] 09/01/2025 3:00 PM EST Office Visit [facility] [address] [place] [address] Rita Amezcua MD [address] [place] [address] 02/16/2026 10:00 AM EDT Office Visit [facility] [address] [place] [address] Hernandez Arzate MD [address] [place] [address] documented as of this encounter Visit Diagnoses [...] documented as of this encounter Care Teams Hooker Operator Relationship Specialty Start Date End Date Loy Cruz MD PCP - General 08/31/22 documented as of this encounter
--- OUTSIDE RECORDS SUMMARY | 2025-07-08 13:43 | XMS_ITS | Clinical Summary ---
Author Organization [facility] Address [address] [place] [address] Care Team Providers Care Hydro Electric Station Operator Name Role Phone Unavailable Primary Care Provider [...] 2006 ZOSTER VACCINE (1 of 2) 2006 INFLUENZA VACCINE 02/19/2025 COVID-19 Vaccine ( - season) 2025
--- OUTSIDE RECORDS SUMMARY | 2025-07-08 13:43 | XMS_ITS | Clinical Summary ---
Author Organization [employer] ([place], [place], [place], [place]) Address [address] [place] [address] Care Team Providers Care Soakers Supervisor Name Role Phone Loy Cruz MD Primary Care Provider [phone] Allergies Active Allergy Reactions Criticality Noted Date [...] Date Toño rded Speak language other than Korean at home Not on file 08/04/2023 Want [...] Recently Relevant to Health Maintenance Insurance [facility] ACCESS PPO MAP Care Teams Soakers Supervisor Relationship Specialty Start Date End Date Loy Cruz MD [address] [place] [address] PCP - General Family Medicine 04/18/23
--- OUTSIDE RECORDS SUMMARY | 2025-07-08 13:44 | XMS_ITS | Encounter Summary ---
Author Organization [facility] Address [address] [place] [address] Care Team Providers Care Supplier Manager Name Role Phone Loy Cruz MD Primary Care Provider [phone] Reason for Visit * Reason Onset Date Comments HCN - Patient Message 05/10/2025 Encounter Details Date Type Department Care Team (Late st Contact Info) Description 05/10/2025 Telephone [facility] [address] [place] [address] Pita Hewitt MD [address] [address] HCN - Patient Message Social [...] documented in this encounter Miscellaneous Notes * Telephone Encounter - Mara Quinn - 05/10/2025 12:45 PM EDT Clinical Concern/Question Reason for Call: Pt would like to know if her PA for sx was approved or not. Best contact number: [phone] (home) Optimal time of day to reach caller: ANYTIME Additional comments/information from caller: None Note: Please do not reply to this message. Follow-up communication and further actions as a result of this message need to be communicated with the patient directly, if the patient is not active onMyChart. If the patient is active on MyChart, they will receive notification of the communication/outcome via [employer]. documented in this encounter Plan of Treatment Upcoming Encounters Date Type Department Care Team (Late st Contact Info) Description 08/12/2025 12:30 PM EST Office Visit [facility] [address] [place] [address] Pita Hewitt MD [address] [employer] [facility] [address] [place] [address] 09/01/2025 3:00 PM EST Office Visit [facility] [address] [place] [address] Rita Amezcua MD [address] [place] [address] 02/16/2026 10:00 AM EDT Office Visit [facility] [place] [facility] [address] [place] [address] Hernandez Arzate MD [address] [place] [address] documented as of this encounter [...] documented as of this encounter Care Teams Supplier Manager Relationship Specialty Start Date End Date Loy Cruz MD PCP - General 08/31/22 documented as of this encounter
--- OUTSIDE RECORDS SUMMARY | 2025-07-08 13:44 | XMS_ITS | Encounter Summary ---
Author Organization [facility] Address [address] [place] [address] Care Team Providers Care Administrative Support Clerk Name Role Phone Loy Cruz MD Primary Care Provider [phone] Encounter Details Date Type Department Care Team [...] Description 08/12/2025 12:30 PM EST Office Visit [facility] [address] [place] [address] Pita Hewitt MD [address] [place] [address] 09/01/2025 3:00 PM EST Office Visit [facility] [address] [place] [address] Rita Amezcua MD [address] [place] [address] 02/16/2026 10:00 AM EDT Office Visit [facility] [place] [facility] [address] [place] [address] Hernandez Arzate MD [address] [place] [address] documented as of this encounter [...] documented as of this encounter Care Teams Administrative Support Clerk Relationship Specialty Start Date End Date Loy Cruz MD PCP - General 08/31/22 documented as of this encounter
--- OUTSIDE RECORDS SUMMARY | 2025-07-08 13:44 | XMS_ITS | Encounter Summary ---
Author Organization [facility] Address [address] [place] [address] Care Team Providers Care Machine Adjuster Leader Name Role Phone Loy Cruz MD Primary Care Provider [phone] Encounter Details Date Type Department Care Team (Latest Contact Info) Description 05/27/2025 Travel 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 Tobacco Use Types Packs/Day [...] Description 08/12/2025 12:30 PM EST Office Visit [facility] [address] [place] [address] Pita Hewitt MD [address] [place] [address] 09/01/2025 3:00 PM EST Office Visit [facility] [address] [place] [address] Rita Amezcua MD [address] [place] [address] 02/16/2026 10:00 AM EDT Office Visit [facility] [place] [facility] [address] [place] [address] Hernandez Arzate MD [address] [place] [address] documented as of this encounter [...] documented as of this encounter Care Teams Machine Adjuster Leader Relationship Specialty Start Date End Date Loy Cruz MD PCP - General 08/31/22 documented as of this encounter
--- OUTSIDE RECORDS SUMMARY | 2025-07-08 13:44 | XMS_ITS | Encounter Summary ---
Author Organization [facility] Address [address] [place] [address] Care Team Providers Care Email Specialist Name Role Phone Loy Cruz MD Primary Care Provider [phone] Encounter Details Date Type Department Care Team (Late st Contact Info) Description 06/14/2025 [facility] [address] [place] [address] Pita Hewitt MD [address] [address] 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 Tobacco Use Types Packs/Day [...] encounter Miscellaneous Notes * Telephone Encounter - Evelyn Yu - 06/16/2025 4:15 PM EST Triage Note 06/16/2025 4:15 PM Spoke with pt and she stated that her left eye (OS) is still swollen and it has now started tearing. States her vision is distorted as well. In the middle of the call we lost connection and I tried to all back and it did not go through. Will try calling later. documented in this encounter Plan of Treatment Upcoming Encounters Date Type Department Care Team (Late st Contact Info) Description 08/12/2025 12:30 PM EST Office Visit [facility] [address] [place] [address] Pita Hewitt MD [address] [place] [address] 09/01/2025 3:00 PM EST Office Visit [facility] [address] [place] [address] Rita Amezcua MD [address] [place] [address] 02/16/2026 10:00 AM EDT Office Visit [facility] [place] [address] [place] [address] Hernandez Arzate MD [address] [place] [address] documented as of this encounter Visit Diagnoses [...] documented as of this encounter Care Teams Email Specialist Relationship Specialty Start Date End Date Loy Cruz MD PCP - General 08/31/22 documented as of this encounter
--- OUTSIDE RECORDS SUMMARY | 2025-07-08 13:44 | XMS_ITS | Encounter Summary ---
Author Organization [facility] Address [address] [place] [address] Care Team Providers Care Assisted Living Care Manager Name Role Phone Loy Cruz MD Primary Care Provider [phone] Reason for Visit * Reason Onset Date Comments HCN - Patient Message 06/16/2025 Encounter Details Date Type Department Care Team (Late st Contact Info) Description 06/16/2025 Telephone [facility] [address] [place] [address] Pita Hewitt MD [address] [address] HCN - Patient Message Social [...] encounter Miscellaneous Notes * Telephone Encounter - Gwendolyn Ahumada S - 06/16/2025 4:20 PM EST Patient Phone Message Reason for Call: PT states she was talking to Misti and the line disconnected. Best contact number and optimal time of day to reach caller: [phone] Note: Please do not reply to this [...] Description 08/12/2025 12:30 PM EST Office Visit [facility] [address] [place] [address] Pita Hewitt MD [address] [place] [address] 09/01/2025 3:00 PM EST Office Visit [facility] [address] [place] [address] Rita Amezcua MD [address] [place] [address] 02/16/2026 10:00 AM EDT Office Visit [facility] [place] [facility] [address] [facility] [place] [address] Hernandez Arzate MD [address] [place] [address] documented as of this encounter Visit Diagnoses [...] documented as of this encounter Care Teams Assisted Living Care Manager Relationship Specialty Start Date End Date Loy Cruz MD PCP - General 08/31/22 documented as of this encounter
--- OUTSIDE RECORDS SUMMARY | 2025-07-08 13:44 | XMS_ITS | Encounter Summary ---
Author Organization [employer] ([place], [place], [place]) Address [address] [place] [address] Care Team Providers Care Sales Estimator Name Role Phone Loy Cruz MD Primary Care Provider [phone] Encounter Details Date Type Department Care Team (Late st Contact Info) Description 10/06/[address] [facility] Family [facility] [place] [address] ProviderMarly MD [address] [place] [address] 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 Tobacco Use Types [...] Ramsay MD - 10/06/2020 4:36 PM CDT [place] [id number] BRISA MCLEAN :1955 Visit Time:10/06/2020 Your Visit Summary Your Care Team Admitting Physician - KINZA BRENNER MD-OBG Attending Physician - KINZA BRENNER MD-OBG Primary Care Physician - VINITA HARDIN (REF), -[facility] Referring Physician - KINZA BRENNER MD-OBG [...] your dental hygiene while using zoledronic acid. [place] and floss your teeth regularly. If you [...] may report side effects to FDA at 1-931-EAY-4729. What other drugs will affect zoledronic acid? Zoledronic acid can harm your kidneys, especially if you also use certain medicines for infections, cancer, osteoporosis, organ transplant rejection, bowel disorders, or pain or arthritis (including aspirin, Tylenol, Advil, and Aleve). Other drugs may affect zoledronic acid, including prescription and moey-mex-ypmkovk medicines, vitamins, and herbal products. Tell your [...] to ensure that the information provided by [employer]') is accurate, up-to-date, and complete, but no guarantee is made to that effect. Drug information contained herein may be time sensitive. iHandle information has been compiled for use by healthcare practitioners and consumers in the [place] and therefore [employer]Handle does not warrant that uses outside of the [place] are appropriate, unless specifically indicated otherwise. [employer] drug information does not endorse drugs, diagnose patients or recommend therapy. [employer] drug information is an informational resource designed [...] effective or appropriate for any given patient. [employer] does not assume any responsibility for any aspect of healthcare administered with the aid of information iHandle provides. The information contained herein is not intended to cover all possible uses, directions, precautions, warnings, drug interactions, allergic reactions, or adverse effects. If you have questions about the drugs you are taking, check with your doctor, nurse or pharmacist. Copyright 4418-8043 [employer]. Version: 17.. Revision Date: 01/20/2020. calcium carbonate [...] may report side effects to FDA at 6-869-QFV-9445. What other drugs can affect calcium carbonate? Calcium can make it harder for your body to absorb certain medicines. If you take other medications, take them at least 2 hours before or 4 or 6 hours after you take calcium carbonate. Other drugs may interact with calcium carbonate, including prescription and szmf-mho-eoevhyj medicines, vitamins, and herbal products. Tell your [...] to ensure that the information provided by [employer]. ('[employer]') is accurate, up-to-date, and complete, but no guarantee is made to that effect. Drug information contained herein may be time sensitive. iHandle information has been compiled for use by healthcare practitioners and consumers in the [place] and therefore iHandle does not warrant that uses outside of the [place] are appropriate, unless specifically indicated otherwise. [employer] drug information does not endorse drugs, diagnose patients or recommend therapy. [employer] drug information is an informational resource designed [...] effective or appropriate for any given patient. [employer] does not assume any responsibility for any aspect of healthcare administered with the aid of information iHandle provides. The information contained herein is not intended to cover all possible uses, directions, precautions, warnings, drug interactions, allergic reactions, or adverse effects. If you have questions about the drugs you are taking, check with your doctor, nurse or pharmacist. Copyright 9462-9506 [employer]. Version: 7.01. Revision Date: 07/03/2017. Emergency Awareness [...] Assistance with quitting is available by contacting 8-442-BZTKNOW. This is a free resource providing counseling, [...] was given the opportunity to ask questions. Patient/Hide Measuring Machine Operator Name: Patient/Hide Measuring Machine Operator Signature: Relationship to Patient: Clinician/Hospital Hide Measuring Machine Operator Signature: Date: Electronically signed by Mar[facility] Conversion Net Developer Software Engineer C Cerner at 11/07/2022 11:56 AM CDT documented in this encounter Plan of Treatment Not on file documented as of this encounter Visit Diagnoses Not on filedocumented in this encounter Care Teams Sales Estimator Relationship Specialty Start Date End Date Loy Cruz MD [address] [place] [address] PCP - General Family Medicine 04/18/23 documented as of this encounter
--- OUTSIDE RECORDS SUMMARY | 2025-07-08 13:44 | XMS_ITS | Encounter Summary ---
Author Organization [facility] Address [address] [place] [address] Care Team Providers Care Vice President Consulting Services Name Role Phone Loy Cruz MD Primary Care Provider [phone] Reason for Visit * Reason Onset Date Comments HCN Same Day Appt/Overbook Request 06/21/2025 Encounter Details Date Type Department Care Team (Late st Contact Info) Description 06/21/2025 Telephone [facility] [address] [place] [address] Pita Hewitt MD [address] [address] HCN Same Day Appt/Overbook Request 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 Tobacco Use Types Packs/Day Years [...] * Telephone Encounter - Shona Alvarez - 07/01/2025 8:18 AM EST Triage Note 07/01/2025 8:18 AM Patient to be seen today, 07/01, at 2pm. * Telephone Encounter - Mara Quinn - 06/30/2025 9:17 AM EST Status Update Call #2 2nd call regarding the status of the initial request. Best contact number: [phone] (home) Optimal time of day to reach caller: ANYTIME Additional comments/information from caller: Note: Please do not reply to this message. Follow-up communication and further actions as a result of this message need to be communicated with the patient directly, if the patient is not active onMyChart. If the patient is active on MyChart, they will receive notification of the communication/outcome via MyChart. * Telephone Encounter - Luna Ozuna - 06/30/2025 9:07 AM EST Triage Note 06/30/2025 9:07 AM Called patient. No answer. Left voice mail requesting a call back. * Telephone Encounter - Rachana Jason - 06/22/2025 4:10 PM EST Status Update Call #1 1st call regarding the status of the initial request. Best contact number: [phone] (home) Optimal time of day to reach caller: ANYTIME Additional comments/information from caller: PT would like to know if it is safe to wait until 07/01 to be seen, please advise Note: Please do not reply to this message. Follow-up communication and further actions as a result of this message need to be communicated with the patient directly, if the patient is not active onMyChart. If the patient is active on MyChart, they will receive notification of the communication/outcome via MyChart. * Telephone Encounter - Kasey Jason - 06/21/2025 9:52 AM EST Same Day Appt/Overbook Request Reason for Call: Patient scheduled 07/01, but having visual changes and headaches -- wanting to know if she needs to come sooner. Best contact number: [phone] (home) Optimal time of day to reach caller: ANYTIME Additional comments/information from caller: None Note: Please do not reply to this message. Follow-up communication and further actions as a result of this message need to be communicated with the patient directly, if the patient is not active onMyChart. If the patient is active on MyChart, they will receive notification of the communication/outcome via Divvy[employer]hart. documented in this encounter Plan of Treatment Upcoming Encounters Date Type Department Care Team (Late st Contact Info) Description 08/12/2025 12:30 PM EST Office Visit [facility] [address] [place] [address] Pita Hewitt MD [address] [place] [address] 09/01/2025 3:00 PM EST Office Visit [facility] [address] [place] [address] Rita Amezcua MD [address] [place] [address] 02/16/2026 10:00 AM EDT Office Visit [facility] [address] [place] [address] Hernandez Arzate MD [address] [place] [phone] documented as of this encounter Visit Diagnoses Not on filedocumented in this encounter Additional Health Concerns Assessment Noted Time PHQ-9 Depression Total Score: 0 07/23/20 25 10:29 AM EDT A fall risk assessment has been complete d for the patient 04/22/2025 2:09 PM EDT A Body Mass Index follow-up plan has been documented for the patient 05/27/2025 10:14 PM EST documented as of this encounter Care Teams Vice President Consulting Services Relationship Specialty Start Date End Date Loy Cruz MD PCP - General 08/31/22 documented as of this encounter
--- OUTSIDE RECORDS SUMMARY | 2025-07-08 13:44 | XMS_ITS | Encounter Summary ---
Author Organization [employer] ([place], [place], [place], [place], [place]) Address [address] [place] [address] Care Team Providers Care Repairer Finished Metal Name Role Phone Loy Cruz MD Primary Care Provider [phone] Encounter Details Date Type Department Care Team (Late st Contact Info) Description 10/06/2020 Transcribed Document [facility] [place] [address] [place] [address] ProviderMarly MD [address] [place] [address] 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 Tobacco Use Types [...] Source : Chart Height Entry Format : [place] Height, Feet : 5 ft(Converted to: 152 cm, 60 Inch) Height, Inches : 0 Inch(Converted to: 0 ft 0 Inch, 0.00 cm) Clinical Height : 152.4 cm Weight Source : Standing scale Weight Entry Format : [place] Clinical Dosing Weight : 43.18 kg Weight, Pounds : 95 lb Body Surface Area (BSA) : 1.36 m2 Body Mass Index : 18.6 kg/m2 (LOW) [place] Body Weight : 45 kg JOSEFINA CORRIGAN [...] JOSEFINA CORRIGAN RN - 10/06/2020 16:03 EDT [place] Suicide Severity Rating Scale (C-SSRS) CSSRS Past [...] Scale Risk Level : 0-24 Low Risk [place] Fall Interventions : Adequate lighting, Call device [...] on filedocumented in this encounter Care Teams Repairer Finished Metal Relationship Specialty Start Date End Date Loy Cruz MD [address] [place] [address] PCP - General Family Medicine 04/18/23 documented as of this encounter
--- OUTSIDE RECORDS SUMMARY | 2025-07-08 13:44 | XMS_ITS | Encounter Summary ---
Author Organization [facility] Address [address] [place] [address] Care Team Providers Care Sales And Marketing Director Name Role Phone Loy Cruz MD Primary Care Provider [phone] Encounter Details Date Type Department Care Team (Latest Contact Info) Description 07/01/2025 Travel 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 Tobacco Use Types Packs/Day [...] Description 08/12/2025 12:30 PM EST Office Visit [facility] [address] [place] [address] Pita Hewitt MD [address] [place] [address] 09/01/2025 3:00 PM EST Office Visit [facility] [address] [place] [address] Rita Amezcua MD [address] [place] [phone] 02/16/2026 10:00 AM EDT Office Visit [facility] [address] [place] [address] Hernandez Arzate MD [address] [place] [address] documented as of this encounter [...] documented as of this encounter Care Teams Sales And Marketing Director Relationship Specialty Start Date End Date Loy Cruz MD PCP - General 08/31/22 documented as of this encounter
--- OUTSIDE RECORDS SUMMARY | 2025-07-08 13:44 | XMS_ITS | Encounter Summary ---
Author Organization [facility] Address [address] [place] [address] Care Team Providers Care Shear Operator Automatic Name Role Phone Loy Cruz MD Primary Care Provider [phone] Encounter Details Date Type Department Care Team (Late Contact Info) Description 08/10/2024 Orders Only External Location [address] [place] [phone] Provider, External 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 Tobacco Use Types Packs/Day Years Used Date Smoking Tobacco: Every Day Cigarettes 1 42 Started: 1983 Passive Smoke Exposure: Current Smokeless [...] Description 08/12/2025 12:30 PM EST Office Visit [facility] [address] [place] [address] Pita Hewitt MD [address] [place] [address] 09/01/2025 3:00 PM EST Office Visit [facility] [address] [place] [address] Rita Amezcua MD [address] [place] [address] 02/16/2026 10:00 AM EDT Office Visit [facility] [address] [place] [address] Hernandez Arzate MD [address] [place] [address] documented as of this encounter [...] documented as of this encounter Care Teams Shear Operator Automatic Relationship Specialty Start Date End Date Loy Cruz MD PCP - General 08/31/22 documented as of this encounter
--- OUTSIDE RECORDS SUMMARY | 2025-07-08 13:44 | XMS_ITS | Referral Summary ---
Author Organization [employer] ([place], [place], [place], [place]) Address [address] [place] [address] Care Team Providers Care Director Private Music Therapy Agency Name Role Phone Loy Cruz MD Primary Care Provider [phone] Allergies Active Allergy Reactions Criticality Noted Date [...] Recently Relevant to Health Maintenance Insurance [facility] ACCESS PPO MAP Care Teams Director Private Music Therapy Agency Relationship Specialty Start Date End Date Loy Cruz MD [address] [place] [address] PCP - General Family Medicine 04/18/23
--- OUTSIDE RECORDS SUMMARY | 2025-07-08 13:44 | XMS_ITS | Encounter Summary ---
Author Organization [facility] Address [address] [place] [address] Care Team Providers Care Dispatcher Electric Power Name Role Phone Loy Cruz MD Primary Care Provider [phone] Reason for Visit * Reason Onset Date Comments HCN Clinical Concern/Question 05/04/2025 Encounter Details Date Type Department Care Team (Late st Contact Info) Description 05/04/2025 Telephone [facility] [address] [place] [address] Rita Amezcua MD [address] [place] [address] HCN Clinical Concern/Question 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 [...] of the initial request. Best contact number: [phone] (home) Optimal time of day to reach [...] communication/outcome via MyChart. * Telephone Encounter - Agustina Hare - [...] Description 08/12/2025 12:30 PM EST Office Visit [facility] [address] [place] [address] Pita Hewitt MD [address] [place] [address] 09/01/2025 3:00 PM EST Office Visit [facility] [address] [place] [address] Rita Amezcua MD [address] [place] [address] 02/16/2026 10:00 AM EDT Office Visit [facility] [place] [address] [place] [address] Hernandez Arzate MD [address] [place] [address] documented as of this encounter Visit Diagnoses [...] documented as of this encounter Care Teams Dispatcher Electric Power Relationship Specialty Start Date End Date Loy Cruz MD PCP - General 08/31/22 documented as of this encounter
--- OUTSIDE RECORDS SUMMARY | 2025-07-08 13:44 | XMS_ITS | Encounter Summary ---
Author Organization [employer] ([place], [place], [place], [place]) Address [address] [place] [address] Care Team Providers Care Haulage Engine Operator Name Role Phone Loy Cruz MD Primary Care Provider [phone] Encounter Details Date Type Department Care Team (Late st Contact Info) Description 10/06/2020 Transcribed Document [facility] [place] [address] [place] [address] ProviderMarly MD [address] [place] [address] 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 Tobacco Use Types [...] on filedocumented in this encounter Care Teams Haulage Engine Operator Relationship Specialty Start Date End Date Loy Cruz MD [address] [place] [address] PCP - General Family Medicine 04/18/23 documented as of this encounter
--- OUTSIDE RECORDS SUMMARY | 2025-07-08 13:44 | XMS_ITS | Encounter Summary ---
Author Organization [facility] Address [address] [place] [address] Care Team Providers Care Cheesemaker Name Role Phone Loy Cruz MD Primary Care Provider [phone] Encounter Details Date Type Department Care Team (Late Contact Info) Description 08/02/2024 Orders Only External Location [address] [place] [phone] Provider, External 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 Tobacco Use Types [...] Description 08/12/2025 12:30 PM EST Office Visit [facility] [address] [place] [address] Pita Hewitt MD [address] [place] [address] 09/01/2025 3:00 PM EST Office Visit [facility] [address] [place] [address] Rita Amezcua MD [address] [place] [address] 02/16/2026 10:00 AM EDT Office Visit [facility] [address] [place] [address] Hernandez rAzate MD [address] [place] [address] documented as of this encounter [...] documented as of this encounter Care Teams Cheesemaker Relationship Specialty Start Date End Date Loy Cruz MD PCP - General 08/31/22 documented as of this encounter
--- OUTSIDE RECORDS SUMMARY | 2025-07-08 13:44 | XMS_ITS | Encounter Summary ---
Author Organization [facility] Address [address] [place] [address] Care Team Providers Care Sewing Inspector Name Role Phone Loy Cruz MD Primary Care Provider Encounter Details Date Type Department Care Team (Late Contact Info) Description 05/27/2025 Telephone [facility] [address] [place] [address] Pita Hewitt MD 110 [facility] [address] [place] [address] 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 Tobacco Use Types [...] Description 08/12/2025 12:30 PM EST Office Visit [facility] [address] [place] [address] Pita Hewitt MD 110 [facility] [address] [place] [address] 09/01/2025 3:00 PM EST Office Visit [facility] [address] [place] [address] Rita Amezcua MD [address] [place] [address] 02/16/2026 10:00 AM EDT Office Visit [facility] [address] [place] [address] Hernandez Arzate MD [address] [place] [address] documented as of this encounter [...] documented as of this encounter Care Teams Sewing Inspector Relationship Specialty Start Date End Date Loy Cruz MD PCP - General 08/31/22 documented as of this encounter
[2025-07-08 15:22] LABS: C-Reactive Protein 0.9 mg/L (0-4)
== END 2025-07-08 23:59 | disposition home or self-care (01) ==
LOC: LAB 13:31
PROVIDERS: PCP Family Medicine; Visit Provider Ophthalmology
DX: R51.9 Headache, unspecified (principal)
CPT/HCPCS: 36415; 85651; 86140